=== PATIENT | female | born 1940 | race Caucasian/White ===

== ENCOUNTER 2024-10-15 12:11 | Outpatient (OUT) | payer MEDICARE, SELFPAY ==
--- NOTE | 2024-10-15 | CONS_ITS ---
CONSULTATION DATE: 10/15/2024 TO: Dr. Caldwell HISTORY: Patient presents today complaining of pain in her upper lumbar area on the left side, left flank area. She rates the pain as being 6-8/10 pain, deep aching in character, with an occasional sharp component. She reports this pain started back in March of 2024. It occurred spontaneously, increased gradually to its current state. She has undergone multiple kyphoplasties. She reports the pain was improved, but she is left with this residual area of pain, which she reports has altered her quality of life, level of function and at times her sleep pattern. She reports the pain increase with activities such as lifting maneuvers, pushing/pulling maneuvers and prolonged standing. She feels most comfortable in the semi-recumbent position or laying on her side. CURRENT MEDICATION: Includes ibuprofen 400 mg b.i.d. to t.i.d., Tylenol 1500 mg t.i.d. and Robaxin 750 q. 6 hours. EXAM: Notable for the patient having no clinical radiculopathy or myelopathy involving the lower extremities. She has no percussion tenderness to her spinous processes or over her sacrum. She did have significant myofascial spasm of the lumbar paravertebral muscles, mainly over the erector spinae, quadratus lumborum, especially on the left side. She also had severe pain with lumbar facet joint loading maneuvers on the left side at L1-2, L2-3. It is difficult to determine which level it was; however, she did point to an area which appeared to be approximately L1-2 level. We have marked this area off for placement of a skin marker, and to proceed with a lumbosacral x-ray to determine which level this corresponds to. IMPRESSION: Our impression is patient with chronic pain secondary to lumbosacral spondylosis and facet joint loading pain clinically on the left, mostly L1-2/L2-3. RECOMMENDATIONS: I have recommended we proceed with a diagnosis two level medial branch block, possibly at the L1-2, L2-3 level on the left side. Will make this determination after we review her lumbosacral spine films, with placement of a skin marker. As part of providing excellent, safe, comprehensive care, the following was completed at our patient's visit: 1. A medication reconciliation and review to ensure accurate knowledge of current/active medications, including asking our patients to inform us about any [id number] medications or herbal remedies/nutritional supplements/alternative remedies. 2. A review to specifically ensure our patients have had annual screening for: elevated body mass index (BMI, see intake chart for exact total), tobacco use, screening for depression, and screening for unhealthy alcohol use. When screening is concerning, patients are provided with education and the specific recommendation to discuss the concerning health issue and treatment options with their primary care provider. JOHN
== END 2024-10-15 12:12 | disposition home or self-care (01) ==
PROVIDERS: PCP Internal Medicine; Visit Provider Anesthesiology Pain Medicine
DX: M47.816 Spondylosis without myelopathy or radiculopathy, lumbar region (principal); M47.817 Spondylosis without myelopathy or radiculopathy, lumbosacral region; G89.29 Other chronic pain
CPT/HCPCS: 72100; G0463

== ENCOUNTER 2024-10-15 13:41 | Outpatient (OUT) | payer MEDICARE, SELFPAY ==
--- NOTE | 2024-10-15 13:50 | XR_ITS ---
[place] [id number] Patient Name: YANI ALTAMIRANO MRN: [id number] date: 1940 Sex: F Assigned Patient Location: [facility] Current Patient Location: Accession/Order Number: [id number] Exam Date: 10/15/2024 13:58 Report Date: 10/16/2024 12:12 At the request of: SANJAY MARES Procedure: XR lumbar spine 2-3V EXAMINATION: XR lumbar spine 2-3V HISTORY: Lumbar Spondylosis COMPARISON: No relevant comparison available. FINDINGS: BONES: Moderate left convex curvature of lumbar spine. Prior compression fractures and vertebroplasty of T11, T12, L1, L2, and L3. Moderate degenerative facet arthropathy L4-5, L5-S1; mild at other levels. DISC SPACES: Marked narrowing L4-5, L5-S1. Mild-moderate narrowing at remaining levels. PARASPINOUS: Skin surface marker projecting posterior to the L3-4 left facet joint. OTHER: Negative. XR/XR lumbar spine 2-3V IMPRESSION: 1. No comparison studies. 2. No appreciable acute abnormality. Multilevel compression fractures and prior vertebroplasty. 2. Multilevel degenerative changes. Electronically authenticated by: MINI VELA Date: 10/16/2024 12:12
== END 2024-10-15 13:42 | disposition home or self-care (01) ==
LOC: RAD 13:43
PROVIDERS: PCP Internal Medicine; Visit Provider Anesthesiology Pain Medicine
DX: M47.816 Spondylosis without myelopathy or radiculopathy, lumbar region (principal)
CPT/HCPCS: 72100

== ENCOUNTER 2024-11-05 06:58 | Day surgery (SDC) | payer MEDICARE, SELFPAY ==
[2024-11-05 07:11] VITALS: BP 173/79; PULSE 59; TEMP 36.2; O2SAT 98
[2024-11-05 07:50] VITALS: BP 189/84; BP 194/81; PULSE 56; PULSE 64; O2SAT 95; O2SAT 97
[2024-11-05] MEDS: BUPIVACAINE HCL 0.25% PF 25 MG/10 ML VIAL 3 ML INJ (07:53)
--- NOTE | 2024-11-05 08:53 | P.ON_ITS ---
Date of procedure: 11/05/24 Pre-op diagnosis: Lumbar spondylosis Post-op diagnosis: same as pre-op Procedure: Left Lumbar 3/4, 4/5 medial branch block Under fluoroscopic guidance Solution injected: 2millilitersMarcaine 0.25% Anesthesia :none Immediate complications none Time out process compliant After informed consent obtained from the patient placed in the Prone proposition . area was prepped and draped in a sterile fashion using Cloraprep .25 gauge spinal needle inserted over each of the above mentioned target areas . [place] were directed towards the target under fluoroscopic guidance . after encountering each of the targets , no indication of intravascular intraneuronal or intrathecal needle tip placement. Then 0 .5 to 1 Milliliter was injected at each level. [place] removed postoperatively. patient transferred to recovery in stable condition to be discharged home after meeting criteria Anesthesia: Local Surgeon: Roman Paredes Condition: stable
== END 2024-11-05 07:57 | disposition home or self-care (01) ==
LOC: SURGOUT 06:59
PROVIDERS: PCP Internal Medicine; Visit Provider Anesthesiology Pain Medicine
DX: M47.816 Spondylosis without myelopathy or radiculopathy, lumbar region (principal)
CPT/HCPCS: 64493; 64494; J0665

== ENCOUNTER 2024-11-19 09:10 | Outpatient (OUT) | payer MEDICARE, SELFPAY ==
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
== END 2024-11-19 09:11 | disposition home or self-care (01) ==
LOC: PM 09:11
PROVIDERS: PCP Internal Medicine; Visit Provider Anesthesiology Pain Medicine
DX: M47.816 Spondylosis without myelopathy or radiculopathy, lumbar region (principal); M54.50 Low back pain, unspecified
CPT/HCPCS: G0463

== ENCOUNTER 2024-12-17 06:52 | Day surgery (SDC) | payer MEDICARE, SELFPAY ==
--- OUTSIDE RECORDS SUMMARY | 2024-12-17 07:00 | XMS_ITS | CCD ---
Author Organization [facility] Care Team Providers Care Gi Asst Name Role Phone SAY DAWKINS Unavailable Unavailable SAY DAWKINS Unavailable Unavailable SAY DAWKINS Unavailable Unavailable SAY DAWKINS Unavailable Unavailable Kyle Amin Primary Care Provider Kyle Amin Unavailable Unavailable Unavailable KYLE AMIN Primary Care Physician [phone] GUERO MORSE Attending Unavailable GUERO MORSE Admitting Unavailable KYLE AMIN Referring Unavailable KYLE AMIN Primary Care Unavailable GUERO MORSE Attending Unavailable GUERO MORSE Referring Unavailable GUERO MORSE Admitting Unavailable KYLE AMIN Primary Care Unavailable Kyle Amin MD Primary Care Provider [phone] Lico Siu Unavailable Fiona Harkins MD Unavailable Kyle Amin MD Primary Care Provider Lico Siu Unavailable Fiona Harkins MD Unavailable HENRRY ELIZONDO Attending Unavailable HENRRY ELIZONDO Referring Unavailable Lico Siu Unavailable Aria English Attending Unavailable Aria English Admitting Unavailable Noa Perkins Attending Unavailable HENRRY ELIZONDO Referring Unavailable HENRRY ELIZONDO Attending Unavailable HENRRY ELIZONDO Admitting Unavailable GUERO MORSE Referring Unavailable GUERO MORSE Attending Unavailable GUERO MORSE Admitting Unavailable Aria English Referring Unavailable Aria English Attending Unavailable Aria English Admitting Unavailable Kyle Amin MD Primary Care Provider Lico Siu Unavailable Fiona Harkins MD Unavailable MD Kyle Amin Primary Care Provider [phone] VENTURA Wilkerson Attending Provider Lico Siu Unavailable Fiona Harkins MD Unavailable Lico Siu MD Unavailable [phone] MD Kyle Amin Primary Care Provider DO Kem Hammond Emergency Provider MD Yuni Lundberg Admit Provider MD Yuni Lundberg Attending Provider DO Eze Franks Other Provider DO Azar Wyatt Emergency Provider DO Aaron Rod Admit Provider DO Aaron Rod Attending Provider DO Megan Rubin Admit Provider DO Megan Rubin Attending Provider MD Louis Higgins Emergency Provider [phone] Kyle Amin MD Primary Care Provider [phone] Loraine Perry MD Unavailable [phone] Kyle Amin MD Unavailable Kyle Amin MD Primary Care Provider KYLE AMIN Primary Care Unavailable KYLE AMIN Primary Care Unavailable FRAN RACHEL Referring Unavailable KYLE AMIN Primary Care Unavailable MEGAN KIRBY Referring Unavailable MD Kyle Amin Primary Care Provider [phone] MD Kwesi Mendoza Jr Emergency Provider Megan Rubin Admitting Unavailable Semaskiene, Ana Attending Unavailable Hill, Kyle Primary Care Unavailable Siu, Barfield Referring Unavailable Miguel Romero Consulting Unavailab Louis Pedraza Admitting Unavailable Louis Higgins Attending Unavailable Hill, Kyle Primary Care Unavailable Hill, Kyle Primary Care Unavailable Kwesi Mendoza Jr Admitting Unavailable Kwesi Mendoza Jr Attending Unavailable Aaron Rod Admitting Unavailable Aaron Rod Attending Unavailable Hill, Kyle Primary Care Unavailable Eze Franks Consulting Unavailable LundbergYuni gutiérrez Admitting Unavailable LundbergYuni gutiérrez Attending Unavailable Hill, Kyle Primary Care Unavailable LISANDRA GUERIN Referring Unavailable LISANDRA GUERIN Referring Unavailable ROCHA, BETO Referring Unavailable ROCHA, BETO Referring Unavailable HILL, KYLE L Primary Care Unavailable Monty Benavides Admitting Unavailable Monty Benavides Attending Unavailable NICOLE, SEVERIANO Referring Unavailable BRENNAN, KYLE L Primary Care Unavailable MOBEST, SEVERIANO Referring Unavailable HILL, KLYE L Primary Care Unavailable ROCHA, BETO Referring Unavailable HILL, KYLE L Primary Care Unavailable CRISTÓBAL CORNELL Admitting Unavailable CRISTÓBAL CORNELL Attending Unavailable Brennan PORTILLO, Kyle Handy Unavailable Lisandra Guerin MD Unavailable Jayden Burks MD Unavailable [phone] Kyle Amin MD Primary Care Provider LISANDRA GUERIN Attending Unavailable BETO ROCHA Attending Unavailable MALVIN PINTO Attending Unavailable BRENNAN, KYLE L Referring Unavailable HILL, KYLE L Primary Care Unavailable HILL, KYLE L Referring Unavailable HILL, KYLE L Primary Care Unavailable ROCHABETO Attending Unavailable BRENNAN, KYLE L Referring Unavailable HILL, KYLE L Primary Care Unavailable Franck PORTILLO, Lico Greenberg Unavailable [phone] KYLE AMIN Attending Unavailable BRENNAN, KYLE Handy Referring Unavailable HILL, KYLE L Attending Unavailable YRN STEPHEN Attending Unavailable JOEL WILKERSON Attending Unavailable NADEGE GARNETT Attending Unavailable JOEL WILKERSON Attending Unavailable BRENNAN, KYLE L Referring Unavailable MALVIN PINTO Referring Unavailable HILL, KYLE L Referring Unavailable HYACINTH BAKRER Attending Unavailable JOEL WILKERSON Attending Unavailable NEMRPETER Attending Unavailable NEMRPETER Admitting Unavailable [facility] Primary Care Unavailable BAMJAYDEN LANIER Attending Unavailable [facility] Primary Care Unavailable [facility] Care Unavailable RUTHKJUSTYNARADHA R Referring Unavailable [facility] Primary Care Unavailable LAYULIANAK RADHA R Referring Unavailable BAMJAYDEN LANIER Attending Unavailable [facility] Primary Care Unavailable [facility] Primary Care Unavailable JOHN WEATHERS Attending Unavail able JAYDEN BURKS Attending Unavailable [facility] Primary Care Unavailable BAMYANNICK, JAYDEN Referring Unavailable AGUSTÍN ORNELAS Attending Unavailable [facility] Primary Care Unavailable BAMYANNICK, JAYDEN Attending Unavailable [facility] Primary Care Unavailable [facility] Primary Care Unavailable [facility] Care Unavailable JENNIFER QUIÑONES Attending Unavailable [facility] Care Unavailable BAMYANNICK, JAYDEN Referring Unavailable MEGAN KIRBY Attending Unavailable [facility] Care Unavailable RADHA ZARAGOZA R Attending Unavailable JUSTYNA ZARAGOZADITH R Referring Unavailable [facility] Care Unavailable [facility] Care Unavailable LAYULIANAK RADHA R Referring Unavailable LALAK RADHA R Attending Unavailable [facility] Primary Care Unavailable [facility] Primary Care Unavailable ARLETH CARIAS Attending Unavailable BARBY, NIMCO T Referring Unavailable [facility] Referring Unavailable FIONA HARKINS Attending Unavailable [facility] Care Unavailable [facility] Care Unavailable SELF Referring Unavailable RENATA SANDOVAL Attending Unavailable [facility] Care Unavailable JAYDEN BURKS Referring Unavailable NIMCO DIOR Attending Unavailable [facility] Primary Care Unavailable JUSTYNA ZARAGOZADITH R Referring Unavailable [facility] Primary Care Unavailable BAMJAYDEN LANIER Referring Unavailable BARBY NIMCO T Referring Unavailable [facility] Primary Care Unavailable NAJM, IMAD Attending Unavailable NAJM, IMAD Admitting Unavailable [facility] Primary Care Unavailable NAJM, IMAD Referring Unavailable [facility] Primary Care Unavailable BRENDATPARIS, NIMCO T Attending Unavailable FRAN RACHEL Referring Unavailable FRAN RACHEL Attending Unavailable [facility] Primary Care Unavailable FRAN RACHEL Referring Unavailable [facility] Primary Care Unavailable BRENDATPARIS, NIMCO T Referring Unavailable [facility] Primary Care Unavailable [facility] Primary Care Unavailable BARBY, NIMCO T Referring Unavailable KYLE AMIN Primary Care Unavailable BARBY, NIMCO T Referring Unavailable KYLE AMIN Primary Care Unavailable JAYDEN BURKS Referring Unavailable KYLE AMIN Primary Care Unavailable GOSTPARIS, NIMCO T Referring Unavailable KYLE AMIN Primary Care Unavailable GOSGRADY, NIMCO T Referring Unavailable KYLE AMIN Primary Care Unavailable BARBY, NIMCO T Referring Unavailable KYLE AMIN Primary Care Unavailable FRANCISCO ARCE Unavailable KYLE AMIN Primary Care Unavailable RADHA ZARAGOZA Referring Unavailable Unavailable Primary Care Provider Unavailabl e Allergies Allergy Classification Reported Allergen(s) Allergy Type Date of Onset Reaction(s) Facility HMG-CoA Reductase Inhibitors (statins) (1 source) Hmg-Coa Reductase Inhibitors (Statins); Translations: [NQOPNGT-GYC-BSG REDUCTASE INHIBITORS] Drug Allergy 9 [facility] Other [place] Repository rOPINIRole (5 sources) rOPINIRole; Translations: [ROPINIROLE] Drug Allergy 1 Other: See Comments [facility] Sulfonamides (antibiotic) (5 sources) Sulfonamides (Antibiotic); Translations: [SULFA (SULFONAMIDE ANTIBIOTICS)] Drug Allergy 5 [facility] Work Phone: (1 source) Sulfonamides (Antibiotic) Drug allergy (disorder) 5 RASH [facility] Repository (20 sources) atorvastatin; Translations: [Lipitor TABS] Drug Allergy Myalgia [facility] [employer] DO Work Phone: (15 sources) Hmg-Coa Reductase Inhibitors (Statins); Translations: [Statins] Allergy to drug (finding) Other (qualifier value) [facility] [employer] DO Work Phone: (12 sources) Sulfonamides (Antibiotic); Translations: [Sulfa Drugs] Allergy to drug (finding) [facility] Work [facility]: (3 sources) Sulfamethoxazole ; Translations: [sulfamethoxazol e] Drug Allergy [facility] (7 sources) black walnut pollen extract; Translations: [ROIRSPX-PZX-LGV REDUCTASE INHIBITORS] Drug Allergy 9 [facility] Repository (1 source) Sulfonamides (Antibiotic); Translations: [SULFA] Propensity to adverse reactions (disorder) 1 [facility] Repository (20 sources) ezetimibe; Translations: [EZETIMIBE] Drug Allergy 9 Myalgia [facility] (12 sources) HMG-CoA reductase inhibitor Drug Allergy 9 Other: See Comments, Other [facility] (20 sources) Sulfonamides (Antibiotic); Translations: [SULFA (SULFONAMIDE ANTIBIOTICS)] Propensity to adverse reactions 5 Rash [facility] Work Phone: (20 sources) HMG-CoA reductase inhibitor Drug Allergy 9 Other: See Comments [facility] (20 sources) gabapentin; Translations: [GABAPENTIN] Drug Allergy 1 Other: See Comments, Nausea Only, Other, GI intolerance [facility] Repository (20 sources) Pramipexole; Translations: [PRAMIPEXOLE] Drug Allergy 1 Other: See Comments, GI intolerance [facility] Repository (12 sources) rOPINIRole; Translations: [ROPINIROLE HCL] Drug Allergy 1 GI intolerance [facility] Repository (1 source) ezetimibe; Translations: [Zetia] Drug Allergy [facility] Repository (20 sources) rOPINIRole; Translations: [ROPINIROLE] Drug Allergy 1 Other: See Comments [facility] (11 sources) Fbsycqq-OPW-XkZ Reductase Inhibitor; Translations: [Fqvdzyc-IHB-IlR Reductase Inhibitor] Propensity to adverse reactions 2 Joint pain/immobility [facility] (11 sources) ezetimibe Drug Allergy 9 Other [facility] Work Phone: (1 source) Sulfonamides (Antibiotic) Drug allergy (disorder) 4 [facility] Repository Medications Current Medications Medication Drug Class(es) Dates Sig (Normalized) Sig (Original) Acetaminophen (20 sources) Start: 10-27-2020 acetaminophen (TYLENOL) tablet 650 mg take 1 tablet by remington th every eight hours as needed acetaminophen 650 mg CR tablet Take 650 mg by mouth every 8 hours as needed. Active acetaminophen (T YLENOL EXTRA STRENGTH) 500 mg tablet Take 2 tablets (1,000 mg total) by mouth. Active Comment on above: Take 650 mg by mouth every 8 hours as needed. acetaminophen 325 mg / HYDROcodone bitartrate 5 mg oral tablet (1 source) Opioid Agonist Start: 10-28-20 HYDROcodone-acetam inophen (NORCO) 5-325 MG per tablet 1 tablet amLODIPine 10 mg oral tablet (20 sources) Dihydropyridine Calcium Channel Bruce Start: 01-04-20 End: 04-08-20 take 1 tablet by mouth in the morning amLODIPine (Norvasc) 10 MG tablet Take 10 mg by mouth in the morning. 10/12/2022 Active Comment on above: Take 1 tablet by remington th once daily. Take 10 mg by mouth once daily. ascorbic acid 100 mg oral tablet (20 sources) Vitamin C take 1 tablet by mouth once daily Ascorbic Acid (VITAMIN C) 100 mg tablet Take 100 mg by mouth once daily. Active take 1 tablet by mouth in the mo rning ascorbic acid (Vitamin C) 500 MG tablet Take 500 mg by mouth in the morning and 500 mg before bedtime. Active Comment on above: Take 100 mg by mouth once daily. Aspirin (20 sources) Platelet Aggregation Inhibitor, Nonsteroidal Anti-inflammatory Drug Start: 11-16-2023 take 1 tablet by mouth in the morning ASPIRIN 81 PO Take 1 tablet by mouth in the morning. 11/16/2023 Active Start: 11-16-2023 take 1 tablet by remington th in the morning ASPIRIN 81 PO Take 1 tablet by mouth in the morning. 0 11/16/2023 Active Start: 11-16-2023 take 81 mg by mouth once daily Aspirin Active 81 MG PO Daily November 16, 2023 1:00am Start: 10-20-2023 End: 12-09-2023 take 325 mg by mouth once daily Aspirin Discontinued 3 25 MG PO Daily October 20, 2023 1:00am November 16, 2023 11:08am Start: 10-27-2020 End: 10-27-2020 aspirin chewable tablet 243 mg Start: 03-28-2019 aspirin 81 mg chewable tablet Aspirin Active 81 MG PO Daily March 27, 2019 11:00pm 03/28/2019 Active Start: 03-28-2019 take 81 mg by mouth once daily Aspirin Active 81 MG PO Daily March 28, 2019 12:00am Start: 03-28-2019 End: 10-20-2023 aspirin 81 mg chewable table t Aspirin Active 81 MG PO Daily March 27, 2019 11:00pm 0 03/28/2019 Active aspirin 81 mg Ta ke 1 tablet (81 mg total) by mouth. Active aspirin 325 mg c ap Take 81 mg by mouth once daily. 0 Active aspirin 325 mg c ap Take by mouth. 0 Active Comment on above: Take by mouth. Take 81 mg by mouth once daily. Aspirin Active 81 MG PO Daily March 27, 2019 11:00pm benzonatate 100 mg oral capsule (19 sources) Non-narcotic Antitussive benzona mcrae (TESSALON PERLE) 100 mg capsule Take 100 mg by mouth. Active biotin 1 mg oral capsule (20 sources) biotin 1 mg cap Take by mouth. Active take 1 capsule by mouth in the m orning biotin 5 MG capsule Take 1 capsule by mouth in the morning. Active Comment on above: Take by mouth. calcium carbonate 1500 mg oral tablet (11 sources) Start: 06-13-20 take 1 tablet by mouth once daily calcium carbonate 1500 (600 Ca) MG tablet Take 1 tablet by mouth 1 (one) time each day. 06/13/2022 Active calcium citrate 950 mg oral tablet (13 sources) calcium citrate (CALCITRATE) 200 mg (950 mg) tablet Take 3 tablets (600 mg total) by mouth. Active cefdinir 300 mg oral capsule (13 sources) Cephalosporin Antibacterial cefDINIR (OMNICEF) 300 mg capsule Take 1 capsule (300 mg total) by mouth. Active cephalexin 500 mg oral capsule (15 sources) Cephalosporin Antibacterial Start: 05-29-20 End: 06-05-20 take 1 capsule by mouth twice daily CEPHalexin (KEFLEX) 500 mg capsule TAKE 1 CAPSULE BY MOUTH TWICE DAILY FOR 7 (SEVEN) DAYS 05/30/2024 Active cholecalciferol 0.125 mg oral capsule (20 sources) Vitamin D Start: 11-15-19 cholecalciferol, vitamin D3, (VITAMIN D3) 5,000 units capsule Take 1 capsule (5,000 Units total) by mouth. 11/15/2023 Active Start: 11-15-2023 take 5000 [IU] by mo [facility] once daily Cholecalciferol (Vitamin D3) Active 5000 UNIT PO daily November 15, 2023 1:00am cholecalciferol, vitamin D3, (VITAMIN D3 ORAL) (20 sources) cholecalciferol, vitamin D3, (VITAMIN D3 ORAL) Take by mouth. Active cholecalciferol, vitamin D3, (VITAMIN D3 ORAL) Take by mouth. 0 Suspended cholecalciferol, vitamin D3, (VITAMIN D3 ORAL) Take by mouth. 0 Active Comment on above: Take by mouth. ciprofloxacin 250 mg oral tablet (13 sources) Quinolone Antimicrobial ciprofloxacin HCl (CIPRO) 250 mg tablet Active emollient clobetasol propionate 0.5 mg/ml topical cream (4 sources) Corticosteroid Start: 2024 clobetasol propionate (Temovate) 0.05 % emollient cream Indications: Rash and nonspecific skin eruption Apply topically 2 (two) times a day 30 g 11/06/2024 Active clonazePAM 0.5 mg oral tablet (13 sources) Benzodiazepine take 1 tablet by mouth once daily at bedtime clonazePAM (KlonoPIN) 0.5 mg tablet Take 1 tablet (0.5 mg total) by mouth once daily at bedtime. Active clopidogrel 75 mg oral tablet (20 sources) P2Y12 Platelet Inhibitor Start: 2018 End: 2023 clopidogreL (PLAVIX) 75 mg tablet Take 1 tablet (75 mg total) by mouth. 11/16/2023 Active Comment on above: Take 75 mg by mouth once daily. cyclobenzaprine hydrochloride 5 mg oral tablet (13 sources) Muscle Relaxant take 1 tablet by mouth three times daily as needed cyclobenzaprine (FLEXERIL) 5 mg tablet Take 1 tablet (5 mg total) by mouth 3 (three) times a day as needed. Active 1 ml denosumab 60 mg/ml prefilled syringe (11 sources) RANK Ligand Inhibitor Start: 2022 denosumab (Prolia) 60 MG/ML solution prefilled syringe Inject 60 mg under the skin every 6 (six) months. 11/29/2022 Active diclofenac sodium 0.01 mg/mg topical gel (20 sources) Nonsteroidal Anti-inflammatory Drug Start: 2023 apply 4 g topically four times daily diclofenac (VOLTAREN ARTHRITIS PAIN) 1 % topical gel Apply 4 g to affected area four times daily. 4 g 1 05/10/2024 Active Docosahexaenoate (13 sources) DOCOSAHEXAENOIC ACID ORAL Take by mouth. Active 1 ml evolocumab 140 mg/ml auto-injector (20 sources) PCSK9 Inhibitor Start: 2022 End: 2023 evolocumab (REPATHA SURECLICK) 140 mg/mL pen injector INJECT 140mg EVERY 2 (TWO) weeks 02/02/2024 Active Start: 08-11-2021 End: 10-14-2022 evolocumab (REPATHA SURECLIC K) 140 mg/mL pen injector Inject 140 mg subcutaneously as directed. Inject 1 pen subcu every 2 wks 6 Each 3 10/14/2022 Active Start: 09-17-2019 inject 140 mg by sub cutaneous injection every other week Evolocumab Active 140 MG SUBCUT EVERY 2 WEEKS September 17, 2019 1:00am evolocumab (Repa julianna) 140 MG/ML injection Inject 140 mg under the skin every 14 (fourteen) days. Active End: 12-09-2023 inject 140 mg by subcutaneous injection every other week evolocumab (REPATHA SYRINGE) 140 mg/mL Inject 140 mg subcutaneously every 2 weeks. 0 12/09/2023 Discontinued Evolocumab (REPA JULIANNA) 140 MG/ML SOSY Inject 140 mg into the skin every 14 days 0 Active Comment on above: Inject 1 Pen subcuta neously as directed. Inject 1 pen subcu every 2 wks Inject 140 mg subcut aneously as directed. Inject 1 pen subcu every 2 wks Inject 140 mg subcut aneously every 2 weeks. ezetimibe 10 mg oral tablet (20 sources) Dietary Cholesterol Absorption Inhibitor Start: 1 End: 3 ezetimibe (ZETIA) 10 mg tablet Take 1 tablet (10 mg total) by mouth. 09/12/2023 Active Comment on above: Take 10 mg by mouth once daily. Take 1 tablet by remington th once daily. ferrous gluconate 27 mg oral tablet (2 sources) Start: 1 take 27 mg by mouth once daily Fergon 27 mg, Oral, Daily, Refills(s) 0, Prophylaxis Start Date: 04/09/21 Status: Ordered 30 actuat fluticasone furoate 0.1 mg/actuat / umeclidinium 0.0625 mg/actuat / vilanterol 0.025 mg/actuat dry powder inhaler (20 sources) Anticholinergic, Corticosteroid, beta2-Adrenergic Agonist Start: fluticasone-umeclid in-vilanter (TRELEGY ELLIPTA) 100-62.5-25 mcg inhalation powder Inhale 1 Puff as instructed as needed. 01/17/2023 Active Start: 01-17-2023 take 1 puff(s) by inhalation once daily as needed Sbkgkaqgdbx-Xgbxcagxc-Pqqjbg (Trelegy Ellipta) 100-62.5-25 MCG/ACT aerosol powder Inhale 1 puff Daily as needed 01/17/2023 Active Comment on above: Inhale 1 Puff as ins tructed. Inhale 1 Puff as ins tructed as needed. furosemide 40 mg oral tablet (20 sources) Loop Diuretic Start: 02-29-2024 End: 05-29-2025 take 1 tablet by mouth twice daily furosemide (LASIX) 40 mg tablet Take 1 tablet by mouth two times a day. 90 tablet 3 05/29/2024 05/29/2025 Active Start: 02-29-2024 take 1 tablet by remington th once daily furosemide (Lasix) 40 MG tablet Indications: Essential hypertension (CMS/HCC) Take 1 tablet (40 mg) by mouth Daily 90 tablet 3 02/29/2024 Active Start: 02-12-2024 take 1 tablet by remington th once daily furosemide (LASIX) 20 mg tablet Take 1 tablet by mouth once daily. 30 tablet 5 02/12/2024 Active Start: 12-15-2022 End: 12-09-2023 take 1 tablet by mouth once daily furosemide (LASIX) 20 mg tablet Take 1 tablet by mouth once daily. 60 tablet 0 02/07/2023 12/09/2023 Discontinued Comment on above: Take 1 tablet by remington th once daily. Ibuprofen (20 sources) Nonsteroidal Anti-inflammatory Drug ibuprofen 200 MG tab let Take 400 mg by mouth in the morning and 400 mg at noon and 400 mg in the evening and 400 mg before bedtime. Active take 1 tablet by remington th every six hours as needed ibuprofen (MOTRIN) 800 mg tablet Take 1 tablet (800 mg total) by mouth every 6 (six) hours as needed. Active ibuprofen (MOTRI N ORAL) Take by mouth. Active ibuprofen (MOTRI N ORAL) Take by mouth. 0 Active Comment on above: Take 800 mg by mouth every 6 hours as needed. INV VITAMIN D3 5000 UNITS CAPSULE (IRB 19-1548) (20 sources) take 1 capsule by mouth once daily INV VITAMIN D3 5000 UNITS CAPSULE (IRB 19-1548) Take 5,000 Units by mouth once daily. For Investigational Drug Use Only. PI: Stevan Lozoya, PhD. Take one capsule by mouth daily for 3 months prior to surgery and 3 months after surgery. Active take 1 capsule by mouth once audelia ly INV VITAMIN D3 5000 UNITS CAPSULE (IRB 19- 1548) Take 5,000 Units by mouth once daily. For Investigational Drug Use Only. PI: Stevan Lozoya, PhD. Take one capsule by mouth daily for 3 months prior to surgery and 3 months after surgery. 0 Active Comment on above: Take 5,000 Units by mouth once daily. For Investigational Drug Use Only. PI: Stevan Lozoya, PhD. Take one capsule by mouth daily for 3 months prior to surgery and 3 months after surgery. 24 hr isosorbide mononitrate 30 mg extended release oral tablet (20 sources) Nitrate Vasodilator Start: 10-12-20 22 take 1 tablet by mouth every twenty-four hours isosorbide mononitrate (IMDUR) 30 mg 24 hr tablet Take 1 tablet (30 mg total) by mouth. 09/12/2023 Active Start: 10-29-2020 End: 11-28-2020 take 1 tablet by mouth once daily isosorbide mononitrate (IMDUR) 60 MG extended release tablet Take 1 tablet by mouth daily 30 tablet 0 10/29/2020 11/28/2020 Active Start: 09-19-2019 End: 10-22-2024 take 1 tablet by mouth once daily isosorbide mononitrate ER (IMDUR) 30 mg 24 hr tablet TAKE 1 TABLET BY MOUTH EVERY DAY 90 tablet 3 10/22/2024 Active Comment on above: Take 30 mg by mouth once daily. Take 1 tablet by remington th once daily. levETIRAcetam 750 mg oral tablet (20 sources) Start: End: take 1 tablet by mouth every twelve hours levETIRAcetam (KEPPRA) 750 mg tablet Take 1 tablet by mouth every 12 hours. Patient should start on December 12, 2023. 60 tablet 0 12/12/2023 01/11/2024 Active Start: 12-04-2023 End: 06-29-2024 levETIRAcetam (KEPPRA) 500 m g tablet Twice daily 12/04/2023 Active Comment on above: Take 1 tablet by remington th every 12 hours. Patient should start on December 12, 2023. levothyroxine sodium 0.05 mg oral tablet (20 sources) l-Thyroxine Start: 03-28-2019 End: 01-11-2024 SYNTHROID 50 mcg tablet 07/25/2023 Active Start: 06-02-2015 take 1 tablet by remington th once daily levothyroxine (SYNTHROID) 75 mcg tablet Take 1 tablet by mouth once daily. 90 tablet 4 06/02/2015 Suspended Comment on above: Take 1 tablet by remington th once daily. Take 1 tablet by remington th daily at 6:00 am. Patient should start on December 12, 2023. losartan potassium 25 mg oral tablet (20 sources) Angiotensin 2 Receptor Bruce Start: 12-29-2023 losartan (COZAAR) 25 mg tablet Take 1 tablet (25 mg total) by mouth. 12/29/2023 Active Start: 11-15-2023 take 50 mg by mouth twice cesar y Losartan Active 50 MG PO Twice daily November 15, 2023 1:00am Start: 08-02-2023 End: 01-29-2024 take 1 tablet by mouth once daily, then take 0.5 tablet by mouth at bedtime losartan (Cozaar) 50 MG tablet Indications: Essential hypertension (CMS/HCC) Take 1 tablet (50 mg) by mouth Daily AND 0.5 tablets (25 mg) at bedtime. 135 tablet 3 08/02/2023 01/29/2024 Active Start: 12-01-2021 take 1 tablet by remington th once daily in the evening Losartan Potassium 25 MG Oral Tablet TAKE one TABLET DAILY IN THE EVENING. Quantity: 90 Refills: 3 Ordered: 01-Dec-2021 Lico Siu MD Start : 01-Dec-2021 Active Start: 12-01-2021 take 1 tablet by [facility] once daily in the morning Losartan Potassium 50 MG Oral Tablet Take one tablet daily in the morning Quantity: 90 Refills: 3 Ordered: 01-Dec-2021 Lico Siu MD Start : 01-Dec-2021 Active Start: 10-27-2020 End: 10-29-2020 take 50 mg by mouth twice daily 50 mg, Oral, 2 TIMES D AILY, First dose on Mon10/27/20 at 2300 Start: 07-31-2013 End: 2024 take 2 tablets by mouth twice daily losartan (COZAAR) 25 mg tablet take 2 tablets by mouth twice daily 360 tablet 3 2024 Active Start: 07-31-2013 End: 11-15-2023 take 25 mg by mouth twice daily Losartan Discontinued 25 MG PO Twice daily March 28, 2019 12:00am November 15, 2023 1:22pm Comment on above: Take 25 mg by mouth twice daily. Take 2 tablets by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 TWICE DAILY as directed for 14 days - oxybutynin XL (DITROPAN XL) 5 mg 24 hr tablet 5 mg. - oxyCODONE IR (ROXICODONE) 5 mg immediate release tablet Take 5 mg by mouth every 4 hours as needed. - ibuprofen (MOTRIN ORAL) Take by mouth. - furosemide (LASIX) 40 mg tablet Take 1 tablet by mouth two times a day. - pregabalin (LYRICA) 25 mg capsule Take 1 capsule by mouth two times a day for 90 days. - diclofenac (VOLTAREN ARTHRITIS PAIN) 1 % topical gel Apply 4 g to affected area four times daily. - methocarbamol (ROBAXIN) 750 mg tablet Take 1 tablet by mouth four times a day as needed. - ranolazine SR (RANEXA) 1,000 mg tab ER 12 hr Take 1 tablet by mouth two times a day. - potassium chloride ER (KLOR-CON) 20 mEq tablet Take 1 tablet by mouth once daily. - evolocumab (REPATHA SURECLICK) 140 mg/mL pen injector Inject 140 mg subcutaneously as directed. Inject 1 pen subcu every 2 wks - metoprolol succinate ER (TOPROL XL) 50 mg 24 hr tablet Take 0.5 tablet by mouth once daily. - levothyroxine (SYNTHROID) 50 mcg tablet Take 1 tablet by mouth daily at 6:00 am. Patient should start on December 12, 2023. - INV VITAMIN D3 5000 UNITS CAPSULE (IRB 19-1548) Take 5,000 Units by mouth once daily. For Investigational Drug Use Only. PI: Stevan Lozoya, PhD. Take one capsule by mouth daily for 3 months prior to surgery and 3 months after surgery. - cyanocobalamin (VITAMIN B-12) 1,000 mcg tab Take 1,000 mcg by mouth once daily. - biotin 1 mg cap Take by mouth. - omega 1-tgq-ovn-fish oil 1,000 mg (250 mg-750 mg)/5 mL liqd Take by mouth. - Magnesium 200 mg tab Take 2 tablets by mouth once daily. - aspirin 81 mg chewable tablet Aspirin Active 81 MG PO Daily March 27, 2019 11:00pm - isosorbide mononitrate ER (IMDUR) 30 mg 24 hr tablet Take 1 tablet by mouth once daily. - ezetimibe (ZETIA) 10 mg tablet Take 1 tablet by mouth once daily. - nitroglycerin sublingual (NITROQUICK) 0.3 mg SL tablet Dissolve 1 tablet under the tongue every 5 minutes as needed for chest pain. - xuxjsuaznsp-ysejpzcsy-uso anter (TRELEGY ELLIPTA) 100-62.5-25 mcg inhalation powder Inhale 1 Puff as instructed as needed. - cholecalciferol, vitamin D3, (VITAMIN D3 ORAL) Take by mouth. - Ascorbic Acid (VITAMIN C) 100 mg tablet Take 100 mg b (more content not included)... Normal [facility] No Panel Informationon 07-17 ACINETOBACTER BAUMANII 0.000 [facility] ACINETOBACTER BAUMANII Not detected [facility] HARVEY ALBICANS, PARAPSILOSIS, TROPICALIS 0.000 [facility] HARVEY ALBICANS, PARAPSILOSIS, TROPICALIS Not detected [facility] HARVEY GLABRATA 0.000 [facility] HARVEY GLABRATA Not detected [facility] HARVEY KRUSEI 0.000 [facility] HARVEY KRUSEI Not detected [facility] CITROBACTER FREUNDII 0.000 [facility] CITROBACTER FREUNDII Not detected [facility] ENTEROBACTER AEROGENES, CLOACAE 0.000 [facility] ENTEROBACTER AEROGENES, CLOACAE Not detected [facility] ENTEROCOCCUS FAECALIS, FAECIUM 0.000 [facility] ENTEROCOCCUS FAECALIS, FAECIUM Not detected [facility] ESCHERICHIA COLI 0.000 [facility] ESCHERICHIA COLI Not detected [facility] KLEBSIELLA PNEUMONIAE, OXYTOCA 0.000 [facility] KLEBSIELLA PNEUMONIAE, OXYTOCA Not detected [facility] MORGANELLA MORGANII 0.000 [facility] MORGANELLA MORGANII Not detected [facility] PROTEUS MIRABILIS, VULGARIS 0.000 [facility] PROTEUS MIRABILIS, VULGARIS Not detected [facility] PSEUDOMONAS AERUGINOSA 0.000 [facility] PSEUDOMONAS AERUGINOSA Not detected [facility] SERRATIA MARCESCENS 0.000 [facility] SERRATIA MARCESCENS Not detected [facility] STAPHYLOCOCCUS AUREUS 0.000 [facility] STAPHYLOCOCCUS AUREUS Not detected [facility] STAPHYLOCOCCUS EPIDERMIDIS, HAEMOLYTICUS, LUGDUNENSIS, SAPROPHYTICUS (URINA 0.000 [facility] STAPHYLOCOCCUS EPIDERMIDIS, HAEMOLYTICUS, LUGDUNENSIS, SAPROPHYTICUS (URINA Not detected [facility] STREPTOCOCCUS AGALACTIAE (GROUP B STREP) 0.000 [facility] STREPTOCOCCUS AGALACTIAE (GROUP B STREP) Not detected [facility] STREPTOCOCCUS PYOGENES (GROUP A STREP) 0.000 [facility] STREPTOCOCCUS PYOGENES (GROUP A STREP) Not detected [facility] Laboratory - Chemistry and C hemistry - challengeon 07-16-2024 Bilirubin Ql (U) Negative [facility] Glucose [Mass/Vol] Negative [facility] Ketones Ql (U) Negative [facility] pH (U) 6.0 [pH] [facility] Specific gravity (U) [Rel density] 1.005 [facility] Urobilinogen (U) [Mass/Vol] Negative [facility] Laboratory - Hematology and Cell countson 07-16-2024 Hemoglobin Ql (U) Negative [facility] Laboratory - Urinalysison Nitrite Ql (U) Negative [facility] Protein Ql (U) Negative [facility] No Panel Informationon 07-16 Interpretation and review of laboratory results Normal [facility] LEUKOCYTES Negative [facility] XR SPINE LUMBAR 2 OR 3 VWSon 07-11-2024 XR SPINE LUMBAR 2 OR 3 VWS XR SPINE LUMBAR 2 OR 3 VWS CLINICAL INFORMATION: Chronic midline low back pain with bilateral sciatica TECHNIQUE: Lumbo-sacral spine radiographs performed. Three images acquired. COMPARISON: Kyphoplasty 06/25/2024 FINDINGS: Lumbar vertebral body heights and alignment are unchanged status post T12-L3 kyphoplasty. There is similar extension OC cement the posterior vertebral body of L3 with slight extension into the epidural space which is unchanged from prior exam. Moderate multilevel degenerative changes and lower lumbar facet arthropathy, the lumbosacral junction is maintained. Extensive vascular calcifications are present. IMPRESSION: * No acute compression or subluxation of the lumbar spine with stable kyphoplasty changes of T12-L3. * Moderate multilevel degenerative changes. Finalized by Cristóbal Cornell MD on 07/11/2024 3:48 PM Normal [facility] XR SPINE THORACIC 2 VWSon XR SPINE THORACIC 2 VWS XR SPINE THORACIC 2 VWS XR SPINE THORACIC 2 VWS: 07/09/2024 1:50 PM CLINICAL INDICATION: Pain COMPARISON: None. TECHNIQUE: AP lateral and swimmer's view of the thoracic spine were obtained. FINDINGS: There is interval sclerosis and mildly worsened superior endplate deformity involving the T11 vertebral body level. The remainder of the vertebral body heights and alignment are maintained. Mild multilevel degenerative changes of the thoracic spine. Redemonstration of kyphoplasty changes in the lumbar spine. IMPRESSION: Mild interval worsening of superior endplate compression fracture of T11. Finalized by Cristóbal Cornell MD on 07/11/2024 3:45 PM Normal [facility] CT angio chest PE protocolon 06-30-2024 CT angio chest PE protocol [facility] Main [place] [address] [place] [address] CT Scan Report Signed Patient: Yani Gerard MR#: [id number] : 1940 Acct:[id number] Age/Sex: 84 / F ADM Date: 06/29/24 Loc: ER Room: Type: [facility] ER Attending Dr: Copies to: Kwesi Mendoza Jr, MD Ordering Provider: Kwesi Mendoza Jr, MD Date of Service: 06/29/24 CT/CT angio chest PE protocol: CP post multiple level kyphoplasty, elev dimer CT ANGIOGRAM OF THE CHEST, PULMONARY EMBOLISM PROTOCOL: CLINICAL INFORMATION: Right-sided chest pain onset tonight. COMPARISON: Chest performed earlier today. TECHNIQUE: Following intravenous injection of contrast CT scans of the chest were obtained using pulmonary embolism protocol. Coronal and sagittal reconstructed images, as well as volume rendered CT pulmonary angiographic images were also submitted.The CT exam was performed using one or more of the following dose reduction techniques: Automated exposure control, adjustment of the MA and/or Kv according to patient size, or use of the iterative reconstruction technique. FINDINGS: Pulmonary Vasculature: Contrast bolus is adequate for evaluation of pulmonary embolism. Pulmonary trunk appears nondilated. No filling defects are identified to suggest pulmonary embolism. Mediastinum : Thoracic aorta is normal in caliber. No pericardial effusion. No lymphadenopathy. The esophagus is grossly unremarkable. Lungs: No focal consolidation, pneumothorax or pleural effusion. Bibasilar scarring. Upper abdomen: No acute findings Soft tissue/bones: Soft tissues surrounding the chest wall demonstrate no acute findings. Multilevel cement augmentation. Subacute to chronic endplate compression deformity involving the T10 vertebral body. CT/CT angio chest PE protocol IMPRESSION: NO EVIDENCE OF ACUTE PULMONARY EMBOLISM OR PROCESS. Impression dictated by: Sorin Jones Jr., D.O.06/30/2024 9:40 AM Dictation Location: RADIO-PC-15 Transcribed By: DANIELE 06/30/24939 Dictated By: Sorin Jones Jr, DO 06/30/24936 Signed By: 06/30/24939 Normal [facility] XR chest 1V portableon 06-30 XR chest 1V portable [facility] [place] [address] XRay Report Signed Patient: Yani Gerard MR#: [id number] : 1940 Acct:[id number] Age/Sex: 84 / F ADM Date: 06/29/24 Loc: ER Room: Type: [facility] ER Attending Dr: Copies to: Kwesi Mendoza Jr, MD Ordering Provider: Kwesi Mendoza Jr, MD Date of Service: 06/29/24 XR/XR chest 1V portable: Chest Pain SINGLE VIEW CHEST CLINICAL HISTORY: Right-sided chest pain onset tonight. COMPARISON: Chest 12/08/2023 FINDINGS: Cardiomegaly. No lung consolidation pneumothorax pleural effusion or free air. XR/XR chest 1V portable IMPRESSION: CARDIOMEGALY WITHOUT ACUTE PROCESS. Impression dictated by: Sorin Jones Jr., D.O.06/30/2024 9:37 AM Dictation Location: RADIO-PC-15 Transcribed By: DANIELE 06/30/24936 Dictated By: Sorin Jones Jr, DO 06/30/24935 Signed By: 06/30/24936 Normal [facility] Activated partial thrombopla stin time (aPTT) in platelet poor plasma by coagulation aOrdered By: Kwesi Mendoza on 06-29-2024 aPTT Coag (PPP) [Time] 31.9 s 25.1-36.5 [facility] Comment on above: A hematocrit value g reater than 55% may lead to inaccurate results in coagulation testing. Patients having hematocrit values >55% require a special collection tube for coagulation studies. Please contact the laboratory at [phone] for redraw instructions. Alanine aminotransferase [En zymatic activity/volume] in Serum or PlasmaOrdered By: Kwesi Mendoza on 06-29-2024 ALT [Catalytic activity/Vol] 9 U/L Normal 7-52 [facility] Comment on above: Performed By: #### C BC, CK, HS TROP, PT, PTT #### [facility] [address] Albumin [Mass/volume] in Ser um or Plasma by Bromocresol green (BCG) dye binding methoOrdered By: Kwesi Mendoza on 06-29-2024 Albumin BCG dye [Mass/Vol] 3.7 g/dL 3.5-5.7 [facility] Alkaline phosphatase [Enzyma tic activity/volume] in Serum or PlasmaOrdered By: Kwesi Mendoza on 06-29-2024 ALP [Catalytic activity/Vol] 129 U/L High 34-104 [facility] Comment on above: Performed By: #### C BC, CK, HS TROP, PT, PTT #### [facility] [address] Aspartate aminotransferase [ Enzymatic activity/volume] in Serum or PlasmaOrdered By: Kwesi Mendoza on 06-29-2024 AST [Catalytic activity/Vol] 10 U/L Low 13-39 [facility] Comment on above: Performed By: #### C BC, CK, HS TROP, PT, PTT #### [address] Automated basophil %Ordered By: Kwesi Mendoza on 06-29-2024 Basophils/100 WBC (Bld) 1.0 % Normal . [facility] Comment on above: Performed By: #### C BC, CK, HS TROP, PT, PTT #### [address] Automated basophil countOrde red By: Kwesi Mendoza on 06-29-2024 Basophils (Bld) [#/Vol] 0.1 10*3/uL Normal 0.0-0.2 [facility] Comment on above: Result Comment: PERF ORMED BY: [place] [address] PATHOLOGIST [employer] DEPOSITING MACHINE OPERATOR BELLE BONDS M.D. Performed By: #### C BC, CK, HS TROP, PT, PTT #### [address] Automated blood monocyte cou ntOrdered By: Kwesi Mendoza on 06-29-2024 Monocytes (Bld) [#/Vol] 1.0 10*3/uL High 0.0-0.8 [facility] Comment on above: Performed By: #### C BC, CK, HS TROP, PT, PTT #### [address] Automated eosinophil %Ordere d By: Kwesi Mendoza on 06-29-2024 Eosinophils/100 WBC (Bld) 1.1 % Normal . [facility] Comment on above: Performed By: #### C BC, CK, HS TROP, PT, PTT #### [address] Automated eosinophil countOr dered By: Kwesi Mendoza on 06-29-2024 Eosinophils (Bld) [#/Vol] 0.1 10*3/uL Normal 0.0-0.45 [facility] Comment on above: Performed By: #### C BC, CK, HS TROP, PT, PTT #### [address] Automated monocyte %Ordered By: Kwesi Mendoza on 06-29-2024 Monocytes/100 WBC (Bld) 11.1 % Normal . [facility] Comment on above: Performed By: #### C BC, CK, HS TROP, PT, PTT #### [address] Automated neutrophil %Ordere d By: Kwesi Mendoza on 06-29-2024 Neutrophils/100 WBC (Bld) 72.5 % Normal . [facility] Comment on above: Performed By: #### C BC, CK, HS TROP, PT, PTT #### [address] BNP ser/plasOrdered By: Jhon Mendoza on 06-29-2024 Natriuretic peptide B (Bld) [Mass/Vol] 106.0 pg/mL High 5-100 [facility] Comment on above: Result Comment: PERF ORMED BY: [place] [address] PATHOLOGIST [employer] DEPOSITING MACHINE OPERATOR BELLE BONDS M.D. Performed By: #### C BC, CK, HS TROP, PT, PTT #### [address] Bacteria [Presence] in Urine by AutomatedOrdered By: Kwesi Mendoza on 06-29-2024 Bacteria Auto Ql (U) 1+ [HPF] High None Seen [facility] Bilirubin Test strip Ql (U)O rdered By: Kwesi Mendoza on 06-29-2024 Bilirubin Ql (U) Negative Negative [facility] Bilirubin.total [Mass/volume ] in Serum or PlasmaOrdered By: Kwesi Mendoza on 06-29-2024 Bilirubin [Mass/Vol] 0.4 mg/dL Normal 0.3-1.0 [facility] Comment on above: Performed By: #### C BC, CK, HS TROP, PT, PTT #### [place] [address] [place] Calcium [Mass/volume] in Ser um or PlasmaOrdered By: Kwesi Mendoza on 06-29-2024 Calcium [Mass/Vol] 8.9 mg/dL Normal 8.6-10.3 [facility] Comment on above: Performed By: #### C BC, CK, HS TROP, PT, PTT #### [facility] [address] [place] [address] [place] Carbon dioxide, total [Moles /volume] in Serum or PlasmaOrdered By: Kwesi Mendoza on 06-29-2024 CO2 [Moles/Vol] 28.8 mmol/L Normal 21.0-31.0 [facility] Comment on above: Performed By: #### C BC, CK, HS TROP, PT, PTT #### [place] [address] [place] Chloride [Moles/volume] in S joanne or PlasmaOrdered By: Kwesi Mendoza on 06-29-2024 Chloride [Moles/Vol] 97 mmol/L Low 98-107 [facility] Comment on above: Performed By: #### C BC, CK, HS TROP, PT, PTT #### [address] Color of Urine by AutoOrdere d By: Kwesi Mendoza on 06-29-2024 Color (U) Light-yellow Normal Yellow [facility] Comment on above: Order Comment: Name Collection Type:: Clean-Voided Midstream Performed By: #### C BC, CK, HS TROP, PT, PTT #### [address] Complete Blood Count Auto Di ffon 06-29-2024 Mean Corpuscular HGB Conc 34.3 g/dL Normal 32.0-35.0 [facility] Comment on above: Performed By: #### C BC, CK, HS TROP, PT, PTT #### [address] Monocytes/100 WBC (Bld) 23.48 % High 0.00-20.00 [facility] Comment on above: Result Comment: For adults in ED, MDW > 20.0 may be associated with a higher risk of sepsis during the first 12 hrs of hospital admission Performed By: #### C BC, CK, HS TROP, PT, PTT #### [address] NRBC% 0.0 /100{WBC} Normal 0-0.5 [facility] Comment on above: Performed By: #### C BC, CK, HS TROP, PT, PTT #### [address] Comprehensive Metabolic Pane jeffrey 06-29-2024 Albumin [Mass/Vol] 3.7 g/dL Normal 3.5-5.7 [facility] Comment on above: Performed By: #### C BC, CK, HS TROP, PT, PTT #### [address] Creatinine Clr Calc Pharmacy 47.80 Normal [facility] Comment on above: Result Comment: PERF ORMED BY: [place] [address] PATHOLOGIST [employer]ANDY DEPOSITING MACHINE OPERATOR BELLE BONDS M.D. Performed By: #### C BC, CK, HS TROP, PT, PTT #### [facility] [address] [place] [address] [place] GFR/1.73 sq M.predicted MDRD (S/P/Bld) [Vol rate/Area] mL/min/{1.73_m2} Normal [facility] Comment on above: Performed By: #### C BC, CK, HS TROP, PT, PTT #### [facility] [address] Creatine kinase [Enzymatic a ctivity/volume] in Serum or PlasmaOrdered By: Kwesi Mendoza on 06-29-2024 CK [Catalytic activity/Vol] 22 U/L Low 30-223 [facility] Comment on above: Performed By: #### C BC, CK, HS TROP, PT, PTT #### [address] Creatinine [Mass/volume] in Serum or PlasmaOrdered By: Kwesi Mendoza on 06-29-2024 Creatinine [Mass/Vol] 0.74 mg/dL Normal 0.60-1.20 [facility] Comment on above: Performed By: #### C BC, CK, HS TROP, PT, PTT #### [place] [id number] [facility] D-Dimer High Sensitivityon 0 06-29-2024 D-Dimer High Sensitivity 631 ng/mL High 0-243 [facility] Comment on above: Result Comment: The reference range for D-dimer is <243 ng/mL D-dimer units. D-dimer results must be used in conjunction with a clinical pretest probability (PTP) assessment model for deep vein thrombosis (DVT) and pulmonary embolism (PE). Results <230 ng/mL d-dimer units can be used as a negative predictor in patients with low or moderate probability for DVT/PE. Results above the exclusion threshold of 230 ng/ml D-dimer units for DVT/PE may indicate the need for further diagnostic testing. D-Dimer can be increased in hospitalized patients due to co-morbid conditions. A hematocrit value greater than 55% may lead to inaccurate results in coagulation testing. Patients having hematocrit values >55% require a special collection tube for coagulation studies. Please contact the laboratory at [phone] for redraw instructions. PERFORMED BY: [place] [address] PATHOLOGIST CANDY DEPOSITING MACHINE OPERATOR BELLE BONDS M.D. Performed By: #### C BC, CK, HS TROP, PT, PTT #### [address] Dipstick and Microscopicon 0 06-29-2024 Bacteria,Urine 1+ High None Seen [facility] Comment on above: Order Comment: Name Collection Type:: Clean-Voided Midstream Performed By: #### C BC, CK, HS TROP, PT, PTT #### [address] Bilirubin,Urine Negative Normal Negative [facility] Comment on above: Order Comment: Name Collection Type:: Clean-Voided Midstream Performed By: #### C BC, CK, HS TROP, PT, PTT #### [address] Glucose Ql (U) Normal Normal Normal [facility] Comment on above: Order Comment: Name Collection Type:: Clean-Voided Midstream Performed By: #### C BC, CK, HS TROP, PT, PTT #### [address] Hyaline Casts,Urine None Normal 0-8 [facility] Comment on above: Order Comment: Name Collection Type:: Clean-Voided Midstream Result Comment: PERF ORMED BY: [place] [address] PATHOLOGIST CANDY DEPOSITING MACHINE OPERATOR BELLE BONDS M.D. Performed By: #### C BC, CK, HS TROP, PT, PTT #### [address] Nitrite,Urine Negative Normal Negative [facility] Comment on above: Order Comment: Name Collection Type:: Clean-Voided Midstream Performed By: #### C BC, CK, HS TROP, PT, PTT #### [address] Occult Blood,Urine Negative Normal Negative [facility] Comment on above: Order Comment: Name Collection Type:: Clean-Voided Midstream Result Comment: PERF ORMED BY: [place] [address] PATHOLOGIST CANDY DEPOSITING MACHINE OPERATOR BELLE BONDS M.D. Performed By: #### C BC, CK, HS TROP, PT, PTT #### [address] Protein,Urine Negative Normal Negative [facility] Comment on above: Order Comment: Name Collection Type:: Clean-Voided Midstream Performed By: #### C BC, CK, HS TROP, PT, PTT #### [address] RBC,Urine 1-2 Normal 0-4 [facility] Comment on above: Order Comment: Name Collection Type:: Clean-Voided Midstream Performed By: #### C BC, CK, HS TROP, PT, PTT #### [address] Renal Epithelial Cells,Urine 1-2 High 0-1 [facility] Comment on above: Order Comment: Name Collection Type:: Clean-Voided Midstream Performed By: #### C BC, CK, HS TROP, PT, PTT #### [place] [address] [place] Specificy Coleman,Urine 1.017 Normal 1.001-1.030 [facility] Comment on above: Order Comment: Name Collection Type:: Clean-Voided Midstream Performed By: #### C BC, CK, HS TROP, PT, PTT #### [address] Squamous Epithelial Cell,Urine 1-2 Normal 0-2 [facility] Comment on above: Order Comment: Name Collection Type:: Clean-Voided Midstream Performed By: #### C BC, CK, HS TROP, PT, PTT #### [place] [address] [place] Urobilinogen,Urine Normal Normal Normal [facility] Comment on above: Order Comment: Name Collection Type:: Clean-Voided Midstream Performed By: #### C BC, CK, HS TROP, PT, PTT #### [facility] [address] WBC CLUMP, Urine Occasional High None Seen [facility] Comment on above: Order Comment: Name Collection Type:: Clean-Voided Midstream Performed By: #### C BC, CK, HS TROP, PT, PTT #### [address] WBC,Urine 20-49 High 0-4 [facility] Comment on above: Order Comment: Name Collection Type:: Clean-Voided Midstream Performed By: #### C BC, CK, HS TROP, PT, PTT #### [address] ECG 12 lead ECGon 06-29-2024 ECG 12 lead ECG [facility] Main [place] [address] [place] [address] Electrocardiograph Report Signed Patient: Yani Gerard MR#: [id number] : 1940 Acct:[id number] Age/Sex: 84 / F ADM Date: 06/29/24 Loc: ER Room: Type: [facility] ER Attending Dr: Ordering Provider: Kwesi Mendoza Jr, MD Date of Service: 06/29/24 ECG/ECG 12 lead ECG: Chest Pain Copies to: Test Reason : Blood Pressure : 153/72 mmHG Vent. Rate : 81 BPM Atrial Rate : 81 BPM P-R Int : 150 ms QRS Dur : 80 ms QT Int : 364 ms P-R-T Axes : 42 32 64 degrees QTcB Int : 422 ms Normal sinus rhythm Nonspecific ST abnormality Abnormal ECG When compared with ECG of 08-Dec-2023 15:11, No significant change was found Confirmed by KWESI MENDOZA MD ([id number]) on 06/29/2024 8:51:31 PM Referred By: Electronically Signed By: KWESI MENDOZA MD Transcribed By: MUS Signed By Kwesi Mendoza Jr, MD 2050 Normal [facility] Epithelial cells.renal [#/ar ea] in Urine by Computer assisted methodOrdered By: Kwesi Mendoza on 06-29-2024 Epithelial cells.renal Computer assisted (U) [#/Area] 1-2 [HPF] High 0-1 [facility] Epithelial cells.squamous [# /area] in Urine sediment by Automated countOrdered By: Kwesi Mendoza on 06-29-2024 Epithelial cells.squamous Auto (Urine sed) [#/Area] 1-2 [HPF] 0-2 [facility] Erythrocyte distribution wid th [Ratio] by Automated countOrdered By: Kwesi Mendoza on 06-29-2024 Erythrocyte distribution width (RBC) [Ratio] 13.8 % Normal 11.9-15.3 [facility] Comment on above: Performed By: #### C BC, CK, HS TROP, PT, PTT #### [facility] [address] Erythrocytes [#/area] in Uri ne sediment by Automated countOrdered By: Kwesi Mendoza on 06-29-2024 RBC Auto (Urine sed) [#/Area] 1-2 [HPF] 0-4 [facility] Erythrocytes [#/volume] in B lood by Automated countOrdered By: Kwesi Mendoza on 06-29-2024 RBC (Bld) [#/Vol] 3.76 10*6/uL Normal 3.60-5.00 [facility] Comment on above: Performed By: #### C BC, CK, HS TROP, PT, PTT #### [facility] [address] [place] [address] Fibrin D-dimer [Presence] in Platelet poor plasma by Latex agglutinationOrdered By: Kwesi Mendoza on 06-29-2024 Fibrin D-dimer LA Ql (PPP) 631 ng/mL High 0-243 [facility] Comment on above: The reference range for D-dimer is <243 ng/mL D-dimer units.D-dimer results must be used in conjunction with a clinicalpretest probability (PTP) assessment model for deep veinthrombosis (DVT) and pulmonary embolism (PE). Results <230ng/mL d-dimer units can be used as a negative predictor inpatients with low or moderate probability for DVT/PE.Results above the exclusion threshold of 230 ng/ml D-dimerunits for DVT/PE may indicate the need for furtherdiagnostic testing.D-Dimer can be increased in hospitalized patients due toco-morbid conditions.A hematocrit value greater than 55% may lead to inaccurate results in coagulation testing. Patients having hematocrit values >55% require a special collection tube for coagulation studies. Please contact the laboratory at [phone] for redraw instructions. Glucose [Mass/volume] in Ser um or PlasmaOrdered By: Kwesi Mendoza on 06-29-2024 Glucose [Mass/Vol] 142 mg/dL High 70-100 [facility] Comment on above: ADA recommended refe rence rangeRandom Glucose Reference Range is dependent on time and content of last meal. Glucose of more than 200 mg/dL in a nonstressed, ambulatory subject supports the diagnosis of Diabetes Mellitus. Result Comment: [place] om Glucose Reference Range is dependent on time and content of last meal. Glucose of more than 200 mg/dL in a nonstressed, ambulatory subject supports the diagnosis of Diabetes Mellitus. ADA recommended reference range Performed By: #### C BC, CK, HS TROP, PT, PTT #### [facility] [address] Glucose [Mass/volume] in Uri ne by Test stripOrdered By: Kwesi Mendoza on 06-29-2024 Glucose Test strip (U) [Mass/Vol] Normal mg/dL Normal [facility] Hematocrit [Volume Fraction] of Blood by Automated countOrdered By: Kwesi Mendoza on 06-29-2024 Hematocrit (Bld) [Volume fraction] 37.3 % Normal 34.0-46.4 [facility] Comment on above: Performed By: #### C BC, CK, HS TROP, PT, PTT #### [facility] [address] [place] [address] [place] Hemoglobin Test strip Ql (U) Ordered By: Kwesi Mendoza on 06-29-2024 Hemoglobin Ql (U) Negative Negative [facility] Hemoglobin [Mass/volume] in BloodOrdered By: Kwesi Mendoza on 06-29-2024 Hemoglobin (Bld) [Mass/Vol] 12.8 g/dL Normal 11.8-15.4 [facility] Comment on above: Performed By: #### C BC, CK, HS TROP, PT, PTT #### [facility] [address] [place] [address] [place] Hyaline casts [#/area] in Ur ine sediment by Automated countOrdered By: Kwesi Mendoza on 06-29-2024 Hyaline casts Auto (Urine sed) [#/Area] None [LPF] 0-8 [facility] INR in Platelet poor plasma by Coagulation assayOrdered By: Kwesi Mendoza on 06-29-2024 INR Coag (PPP) [Relative time] 1.0 {INR} Normal [facility] Comment on above: INR Therapeutic Rang e A) Pre- and Peroperative OAT started two weeks before surgery. NOT HIP SURGERY: 1.5 - 2.5 HIP SURGERY: 2 - 3B) Primary and secondary prevention of venous THROMBOSIS: 2 - 3C) Active venous thrombosis, pulmonary embolismand prevention of recurrent venous thrombosis: 2 - 3D) Prevention of arterial thromboembolismincluding patients with mechanical heart valves: 3 - 4.5 Result Comment: INR Therapeutic Range A) Pre- and Peroperative OAT started two weeks before surgery. NOT HIP SURGERY: 1.5 - 2.5 HIP SURGERY: 2 - 3 B) Primary and secondary prevention of venous THROMBOSIS: 2 - 3 C) Active venous thrombosis, pulmonary embolism and prevention of recurrent venous thrombosis: 2 - 3 D) Prevention of arterial thromboembolism including patients with mechanical heart valves: 3 - 4.5 Performed By: #### C BC, CK, HS TROP, PT, PTT #### [facility] [address] [place] [id number] [place] Ketones [Presence] in Urine by Test stripOrdered By: Kwesi Mendoza on 06-29-2024 Ketones Ql (U) Negative Normal Negative [facility] Comment on above: Order Comment: Name Collection Type:: Clean-Voided Midstream Performed By: #### C BC, CK, HS TROP, PT, PTT #### [facility] [address] [place] [id number] [place] Leukocyte clumps [Presence] in Urine by AutomatedOrdered By: Kwesi Mendoza on 06-29-2024 Leukocyte clumps Auto Ql (U) Occasional [LPF] High None Seen [facility] Leukocyte esterase [Presence ] in Urine by Test stripOrdered By: Kwesi Mendoza on 06-29-2024 Leukocyte esterase Test strip Ql (U) 4+ High Negative [facility] Comment on above: Order Comment: Name Collection Type:: Clean-Voided Midstream Performed By: #### C BC, CK, HS TROP, PT, PTT #### [facility] [address] [place] [id number] [place] Leukocytes [#/area] in Urine sediment by Automated countOrdered By: Kwesi Mendoza on 06-29-2024 WBC Auto (Urine sed) [#/Area] 20-49 [HPF] High 0-4 [facility] Leukocytes [#/volume] correc dorian for nucleated erythrocytes in Blood by Automated counOrdered By: Kwesi Mendoza on 06-29-2024 WBC corrected for nucl RBC Auto (Bld) [#/Vol] 8.6 10*3/uL 3.8-11.6 [facility] Leukocytes [#/volume] in Blo od by Automated countOrdered By: Kwesi Mendoza on 06-29-2024 WBC (Bld) [#/Vol] 8.6 10*3/uL Normal 3.8-11.6 [facility] Comment on above: Performed By: #### C BC, CK, HS TROP, PT, PTT #### [facility] [address] [place] [address] [place] Lymphocytes [#/volume] in Bl ood by Automated countOrdered By: Kwesi Mendoza on 06-29-2024 Lymphocytes (Bld) [#/Vol] 1.2 10*3/uL Normal 1.00-4.8 [facility] Comment on above: Performed By: #### C BC, CK, HS TROP, PT, PTT #### [facility] [address] [place] [id number] [place] Lymphocytes/100 leukocytes i n Blood by Automated countOrdered By: Kwesi Mendoza on 06-29-2024 Lymphocytes/100 WBC (Bld) 14.3 % Normal . [facility] Comment on above: Performed By: #### C BC, CK, HS TROP, PT, PTT #### [facility] [address] [place], [place] [id number] [place] MCH [Entitic mass] by Automa dorian countOrdered By: Kwesi Mendoza on 06-29-2024 MCH (RBC) [Entitic mass] 34.0 pg Normal 24.7-34.3 [facility] Comment on above: Performed By: #### C BC, CK, HS TROP, PT, PTT #### [facility] [address] [place] [address] MCHC Auto (RBC) [Mass/Vol]Or dered By: Kwesi Mendoza on 06-29-2024 MCHC (RBC) [Mass/Vol] 34.3 g/dL 32.0-35.0 [facility] MCV [Entitic volume] by Auto mated countOrdered By: Kwesi Mendoza on 06-29-2024 MCV (RBC) [Entitic vol] 99.1 fL Normal 80-100 [facility] Comment on above: Performed By: #### C BC, CK, HS TROP, PT, PTT #### [address] Monocyte distribution width [Entitic volume] in Blood by AutomatedOrdered By: Kwesi Mendoza on 06-29-2024 Monocyte distribution width Auto (Bld) [Entitic vol] 23.48 % High 0.00-20.00 [facility] Comment on above: For adults in ED, MD W > 20.0 may be associated with a higher risk of sepsis during the first 12 hrs of hospital admission Neutrophils [#/volume] in Bl ood by Automated countOrdered By: Kwesi Mendoza on 06-29-2024 Neutrophils (Bld) [#/Vol] 6.3 10*3/uL Normal 1.8-7.7 [facility] Comment on above: Performed By: #### C BC, CK, HS TROP, PT, PTT #### [address] Nitrite Test strip Ql (U)Ord ered By: Kwesi Mendoza on 06-29-2024 Nitrite Ql (U) Negative Negative [facility] No Panel InformationOrdered By: Kwesi Mendoza on 06-29-2024 Estimated GFR (CKD-EPI) > 60.0 mL/Min [facility] Creatinine Clearance (Chem 47.80 [facility] Nucleated erythrocytes [Pres ence] in Blood by Automated countOrdered By: Kwesi Mendoza on 06-29-2024 Nucleated RBC Auto Ql (Bld) 0.0 /100{WBC} 0-0.5 [facility] Partial Thromboplastin Timeo n 06-29-2024 aPTT Coag (Bld) [Time] 31.9 s Normal 25.1-36.5 [facility] Comment on above: Result Comment: A he matocrit value greater than 55% may lead to inaccurate results in coagulation testing. Patients having hematocrit values >55% require a special collection tube for coagulation studies. Please contact the laboratory at [phone] for redraw instructions. Performed By: #### C BC, CK, HS TROP, PT, PTT #### [facility] [address] [place] [address] [place] Platelet mean volume [Entiti c volume] in Blood by Automated countOrdered By: Kwesi Mendoza on 06-29-2024 Platelet mean volume (Bld) [Entitic vol] 9.1 fL Normal 6.3-10.7 [facility] Comment on above: Performed By: #### C BC, CK, HS TROP, PT, PTT #### [facility] [address] [place] [address] [place] Platelets [#/volume] in Bloo d by Automated countOrdered By: Kwesi Mendoza on 06-29-2024 Platelets (Bld) [#/Vol] 234 10*3/uL Normal 150-450 [facility] Comment on above: Performed By: #### C BC, CK, HS TROP, PT, PTT #### [facility] [address] [place] [id number] [place] Potassium [Moles/volume] in Serum or PlasmaOrdered By: Kwesi Mendoza on 06-29-2024 Potassium [Moles/Vol] 3.4 mmol/L Low 3.5-5.1 [facility] Comment on above: Performed By: #### C BC, CK, HS TROP, PT, PTT #### [place] [id number] [facility] Protein Test strip (U) [Mass /Vol]Ordered By: Kwesi Mendoza on 06-29-2024 Protein (U) [Mass/Vol] Negative Negative [facility] Protein [Mass/volume] in Ser um or PlasmaOrdered By: Kwesi Mendoza on 06-29-2024 Protein [Mass/Vol] 6.4 g/dL Normal 6.4-8.9 [facility] Comment on above: Performed By: #### C BC, CK, HS TROP, PT, PTT #### [address] Prothrombin time (PT)Ordered By: Kwesi Mendoza on 06-29-2024 PT Coag (PPP) [Time] 11.8 s Normal 9.0-12.9 [facility] Comment on above: A hematocrit value g reater than 55% may lead to inaccurate results in coagulation testing. Patients having hematocrit values >55% require a special collection tube for coagulation studies. Please contact the laboratory at [phone] for redraw instructions. Result Comment: A he matocrit value greater than 55% may lead to inaccurate results in coagulation testing. Patients having hematocrit values >55% require a special collection tube for coagulation studies. Please contact the laboratory at [phone] for redraw instructions. Performed By: #### C BC, CK, HS TROP, PT, PTT #### [address] Serum globulin measurement b y calculation (mass/volume)Ordered By: Kwesi Mendoza on 06-29-2024 Globulin (S) [Mass/Vol] 2.7 g/dL [facility] Comment on above: Performed By: #### C BC, CK, HS TROP, PT, PTT #### [address] Serum or plasma albumin/glob ulin mass ratioOrdered By: Kwesi Mendoza on 06-29-2024 Albumin/Globulin [Mass ratio] 1.4 {ratio} [facility] Comment on above: Performed By: #### C BC, CK, HS TROP, PT, PTT #### [address] Serum or plasma anion gap de terminationOrdered By: Kwesi Mendoza on 06-29-2024 Anion gap [Moles/Vol] 12.6 mmol/L Normal 6.0-15.0 [facility] Comment on above: Performed By: #### C BC, CK, HS TROP, PT, PTT #### [address] Sodium [Moles/volume] in Ser um or PlasmaOrdered By: Kwesi Mendoza on 06-29-2024 Sodium [Moles/Vol] 135 mmol/L Low 136-145 [facility] Comment on above: Performed By: #### C BC, CK, HS TROP, PT, PTT #### [address] Specific gravity Test strip (U) [Rel density]Ordered By: Kwesi Mendoza on 06-29-2024 Specific gravity (U) [Rel density] 1.017 1.001-1.030 [facility] Troponin I High Sensitivityo n 06-29-2024 Troponin I High Sensitivity 11.7 pg/mL Normal 0.0-15.0 [facility] Comment on above: Result Comment: PERF ORMED BY: [place] [address] PATHOLOGIST [employer]AND[employer] DEPOSITING MACHINE OPERATOR BELLE BONDS M.D. Performed By: #### C BC, CK, HS TROP, PT, PTT #### [address] Troponin I High Sensitivity 11.7 pg/mL Normal 0.0-15.0 [facility] Comment on above: Result Comment: PERF ORMED BY: [place] [address] PATHOLOGIST CANDY DEPOSITING MACHINE OPERATOR BELLE BONDS M.D. Performed By: #### C BC, CK, HS TROP, PT, PTT #### [address] Troponin I.cardiac [Mass/vol ume] in Serum or Plasma by Detection limit <= 0.01 ng/Ordered By: Kwesi Mendoza on 06-29-2024 Troponin I.cardiac DL <= 0.01 ng/mL [Mass/Vol] 11.7 pg/mL 0.0-15.0 [facility] Urea nitrogen [Mass/volume] in Serum or PlasmaOrdered By: Kwesi Mendoza on 06-29-2024 Urea nitrogen [Mass/Vol] 22 mg/dL Normal 7-25 [facility] Comment on above: Performed By: #### C TOMAS, CK, HS TROP, PT, PTT #### [facility] [address] [place] [address] Urine Cultureon 06-29-2024 Bacteria identified Cx Nom (U) ORGANISM: Pseudomonas aeruginosa (O:PSEAER) [place] Count 15,000 Aerobic SABRINA Charge (NMIC56) SUSCEPTIBILITY ORGANISM: O:PSEAER ANTIBIOTIC INTERPRETATION SABRINA Amikacin S <16 Aztreonam IB <4 Cefepime S <2 Ceftazidime IB 4 Ceftazidime/Avibactam S <4 Ceftolozane/Tazobactam S <2 Ciprofloxacin S <0.25 Gentamicin S <2 Levofloxacin S <0.5 Meropenem S <1 Piperacillin/Tazobactam IB <8 Tobramycin S <2 S = SUSCEPTIBLE I = INTERMEDIATE R = RESISTANT BLANK = DATA NOT AVAILABLE, OR DRUG NOT ADVISABLE OR TESTED R* = RESISTANCE DUE TO EXTENDED SPECTRUM BETA-LACTAMASES ESBL = EXTENDED SPECTRUM BETA-LACTAMASE TFG = THYMIDINE-DEPENDENT STRAIN MARISA = BETA-LACTAMASE POSITIVE IB = INDUCIBLE BETA-LACTAMASE. APPEARS IN PLACE OF 'S' WITH SPECIES KNOWN TO POSSESS INDUCIBLE BETA-LACTAMASES. POTENTIALLY THEY MAY BECOME RESISTANT TO ALL B-LACTAM DRUGS. PERFORMED BY: [place] [address] PATHOLOGIST CANDY DEPOSITING MACHINE OPERATOR BELLE BONDS M.D. Normal [facility] Comment on above: Performed By: #### C TOMAS, CK, HS TROP, PT, PTT #### [facility] [address] [place] [address] Urine appearanceOrdered By: Kwesi Mendoza on 06-29-2024 Appearance (U) Clear Normal Clear [facility] Comment on above: Order Comment: Name Collection Type:: Clean-Voided Midstream Performed By: #### C TOMAS, CK, HS TROP, PT, PTT #### [facility] [address] [place] [id number] [facility] Urobilinogen Test strip (U) [Mass/Vol]Ordered By: Kwesi Mendoza on 06-29-2024 Urobilinogen (U) [Mass/Vol] Normal mg/dL Normal [facility] pH of Urine by Test stripOrd ered By: Kwesi Mendoza on 06-29-2024 pH (U) 6.5 [pH] Normal 5.0-9.0 [facility] Comment on above: Order Comment: Name Collection Type:: Clean-Voided Midstream Performed By: #### C BC, CK, HS TROP, PT, PTT #### [facility] [address] IR KYPHOPLASTY LUMBAR W GUID on 06-25-2024 IR KYPHOPLASTY LUMBAR W GUID IR KYPHOPLASTY LUMBAR W GUID EXAM: KYPHOPLASTY CLINICAL INDICATION: 83-year-old female with history of multilevel subacute compression fractures involving T12-L3, she is in excruciating daily pain which is significantly impacting her mobility and level of activity, her symptoms are lifestyle limiting and required her to take an extensive regimen of pain medication for mild relief. Compression fractures were confirmed on prior MRI which demonstrate marrow edema and height loss at these 4 levels. She presents today for vertebral augmentation. COMPARISON: MRI 06/14/2024 TECHNIQUE: Procedure performed by Interventional Radiologist Cristóbal Cornell M.D. Fluoroscopy time: 18.4 minutes Reference Air Kerma: 599 mGy Fluoroscopy images saved: 7 Medication: 1 g of Ancef for antibiotic prophylaxis CONSENT: The reason of the procedure was discussed with the patient. The procedure, expectations, risks, benefits, options and alternatives were discussed. All of the patient?s questions were answered. The patient understands that the results cannot be guaranteed. The procedure is indicated and the risks are acceptable. Consent was obtained. SEDATION: The patient?s cardiopulmonary status was evaluated and the patient is suitable for moderate sedation. During the course of the procedure, the patient was sedated with Fentanyl 350 mcg intravenously and Versed 3 mg intravenously, while being monitored with ECG, blood pressure monitoring, and pulse oximeter by appropriately trained personnel, for a total sedation time of 100 minutes. Following the procedure, the patient was recovered according to the moderate sedation policy. PROCEDURE: Fluoroscopic guided kyphoplasty of T12-L3. Details of procedure: The patient was placed in the prone position on the fluoroscopy table. The back was prepped and draped in usual sterile fashion. Using fluoroscopy, the vertebral bodies were counted and the T12-L3 vertebral bodies were marked in both AP and lateral projections. The bilateral pedicles were marked. Appropriate skin entry sites were marked just lateral to the pedicles. A 10 mL 50-50 mixture of 1% lidocaine and 0.25% bupivacaine was used as a local anesthetic at the skin and subcutaneous and soft tissues. A 22-gauge spinal needle was then used to anesthetize the periosteum. Position was confirmed in AP and lateral projections. Then, an 10-gauge fernie osteointroducer trocar was advanced through the left T12 pedicle. Special care was made not to violate the medial border of the pedicle to avoid any injury to the spinal canal. The trocar was then advanced to the posterior wall of the vertebral body this process was repeated for the right L1 pedicle and left L2 and L3 pedicles. The patient's right L3 pedicle was small in size and so the left pedicle was utilized. Then, utilizing the Omni curve introducer needle and intermittent fluoroscopic guidance, a peak sheath was advanced across the mid body of the vertebral body to the contralateral pedicle at each level. Then, an inflatable balloon was inserted and inflated under fluoroscopy at each level. The T12 and L1 balloons were deflated and removed with reinsertion of the peak sheath. Cement delivery was then performed in the T12 and L1 levels until adequate filling of the vertebral body was seen on fluoroscopy. Once adequate filling of the vertebral body was obtained the cement delivery was removed and a needle stylet was inserted through the introducer cannula. Attention was turned to the L2 and L3 levels. L2 and L3 balloons were deflated and the peak sheath was reinserted. Cement delivery was then performed at the L2 and L3 levels under intermittent fluoroscopic. Once adequate filling of the vertebral bodies was obtained the cement delivery was removed and a needle stylette was inserted through the introducer cannula. During filling of the L3 vertebral body cement began to flow posteriorly to the posterior margin of the vertebral body and once this was seen cement delivery was immediately halted. After adequate time, the introducer cannulas at all levels were removed. After all needles were removed, sterile dressings were applied. The patient tolerated the procedure well and there were no immediate complications. Final fluoroscopic images were obtained. FINDINGS: Redemonstration of compression fractures at T12-L3 Successful fluoroscopic guided unipedicular kyphoplasty of the T12-L3 vertebral body levels with satisfactory bone cement filling of the vertebral bodies. Cement delivery into the L3 vertebral body was limited as cement traveled posteriorly to the posterior body of L3 and possibly within the epidural space. Positioning of cement in the posterior body precluded additional cement delivery. IMPRESSION: Successful fluoroscopically guided T12-L3 kyphoplasty Finalized by Cristóbal Cornell MD on 06/25/2024 3:09 PM Normal [facility] PLATELET COUNT AND MPVon Platelet mean volume (Bld) [Entitic vol] 8.6 fL Normal 7-12 [facility] Comment on above: Performed By: #### P LTCT, PINR #### [facility] ([id number]) [address], [address] [place] [address] Platelets (Bld) [#/Vol] 264 10*3/uL Normal 150-450 [facility] Comment on above: Performed By: #### P LTCT, PINR #### [facility] ([id number]) [address] [address] [place] [address] PROTIME AND INRon 06-25-2024 INR Coag (PPP) [Relative time] 1.0 {INR} Normal 0.8-1.1 [facility] Comment on above: Performed By: #### P LTCT, PINR #### [facility] ([id number]) [address], [address] [place] [address] PT Coag (PPP) [Time] 12.0 s Normal 9.8-13.2 [facility] Comment on above: Performed By: #### P LTCT, PINR #### [facility] ([id number]) [address] [place] [address] CNOVon 06-18-2024 [facility] Office Visit (NSFRVW ) ----- YANI GERARD ([id number]) 1940 F Date Time Provider Department 06/18/24 11:00 AM JOHN WEATHERS NSFRVW During your visit today, we recorded the following information about you: Temperature Pulse Blood pressure Weight 96.4 degrees 59/minute 172/67 70.4 kg Height 1.549 m John Weathers MD 06/18/2024 1:07 PM Signed SPINE SURGERY NEW PATIENT This is an in-person visit. PCP: Kyle Amin MD REFERRING PROVIDER: MD [place] SUBJECTIVE CHIEF COMPLAINT: Lower back pain Right leg pain Walking difficulty HISTORY OF PRESENT ILLNESS: Yani Gerard is a 83 year old female presenting with family Yani Gerard is a pleasant 83-year-old female is here in spine surgical with a history of lower back pain. Pain started few months ago without any history of injury or fall. Pain is mostly localized to lower back. Pain is constant, aggravated by standing, walking for short distance. Pain is not significantly improved with the sitting or lying down. She is sleeping in a recliner chair. Unable to sleep on a regular bed. Occasionally pain is radiating to right lower extremity. Occasionally noticing urgency incontinence of urine. No left leg pain. Denies leg numbness. Denies weakness. Denies bowel incontinence. Evaluated by multiple medical team recently: Kofi CAMPBELL 2023- MRI lumbar spine and trial of lyrica Dr. Jayden Burks in Neurology for poor balance-refer her for vestibular physical therapy. history of relatively stereotyped episodic alteration of behavior and movement. Prolonged video EEG monitoring has failed to demonstrate a definite cerebral electrographic correlate to this phenomenon -Dr Henriquez- Consult placed to Functional Movement Disorders multidisciplinary clinic continue PT and follow with psychology when able Dr Agustín Ornelas 2024 for Intracranial atherosclerotic disease and transient neurologic symptoms ; -September 2023 she experienced sudden onset left leg shaking, slurred speech and difficulty expressing herself; 2023, her symptoms happened again, although in a milder form, and lasted only about 6-7 hours. Continue dual antiplatelet therapy for 3 months, then consider Plavix monotherapy long-term afterwards. Aggressive medical management of underlying vascular risk factors. -Right JULIANNA revision by Dr Morse in [facility] 12/2021, 12/2020 -Left Heart Catheterization by Dr Allen 05/2023 Tried Medrol Dosepak without much pain relief. On record 25 mg 3 times a day, oxycodone IR every 4 hours, diclofenac gel, Robaxin 4 times a day. All medications helps only minimal pain. Received right trochanteric bursa injection without any pain relief. Known history of osteoporosis, on Prolia for at least 2 years. Last BMD done in 2020. BMD done on 2022 however she not completed it. Underwent left L4 and 5 laminectomy in 2009 at the [facility]. PRECIPITATING EVENT: None DURATION OF SYMPTOMS: Greater Than 6 Weeks PAIN EVALUATION 06/18/2024 1004 Pain Level: 8 Pain Location: Back-Lower Description: Pressure Ulcer/Injury;Throbbing Duration Units: Unknown Frequency: Continuous Pain Radiation: Lower back pain occasionally radiating to right lower extremity Aggravating Factors: Constant, aggravated by standing, walking Alleviating Factors: Medications Pain Ratio: Pain in the back is greater than in the leg DERMATOMAL DISTRIBUTION: Not applicable AMBULATORY STATUS: Impaired Home Distances ANTIPLATELET OR ANTICOAGULATION STATUS: Aspirin PREVIOUS CONSERVATIVE TREATMENTS: Oxycodone IR Voltaren gel Robaxin Tylenol Medrol Dosepak Retrocardiac bursa injection without much pain relief PREVIOUS SPINAL SURGERY: SURGERY #1: Left L4-5, L5-S1 decompression 2009 ACTIVE PROBLEM LIST Actinic Keratosis Other Specified Disease of Sebaceous Glands Htn (Hypertension) Hyperlipidemia Statin Myopathy Preoperative Cardiovascular Examination Cad (Coronary Artery Disease) Abnormality of Gait Clear Outcomes Study, PI: Eva Fischer MD Divergence Insufficiency Paroxysmal Supraventricular Tachycardia (Hcc) Unstable Angina (Hcc) Acquired Hypothyroidism Transient Ischemic Attack Left Hemiparesis (Hcc) Interstitial Lung Disease (Hcc) Pulmonary Hypertension (Hcc) Status Post Coronary Angioplasty Stenosis of Both Vertebral Arteries Stuttering Left Arm Weakness Tremor, Unspecified Bradycardia Atherosclerosis of Aorta (Hcc) Obesity, Class I, Bmi 30-34.9 PAST MEDICAL HISTORY No date: Arthritis No date: Atrial fibrillation (HCC) Comment: pafib short lived suspected per apple watch strip, Biotel in place 10/03/2018: Benign paroxysmal positional vertigo of right ear 03/28/2019: CAD (coronary artery disease) Comment: LAD proximal stent , RCA nondominant bifurcating severe disease small medi (more content not included)... Normal [facility] 06-18-2024 CNPN Telephone (NIQ) ----- YANI GERARD ([id number]) 1940 F Date Time Provider Department 06/18/24 JOHN WEATHERS NI During your visit today, we recorded the following information about you: Jonna Donaldson 06/18/2024 2:26 PM Signed February, from [employer], called regarding prior authorization for the spine epidural injection. She says the patient is in a lot of pain, and we can call [facility] directly with an urgent request. Per February, we should call [facility] at , let them know it is an urgent request due to the patient being in a lot of pain. [employer] is also requesting that once we speak with [facility], that we call the patient with an update. Melony Alan 06/18/2024 2:50 PM Signed [employer] phoned to follow up with earlier call for authorization for Pt. Pt Sp has phoned [employer] to follow due to Pt Pain level. [employer] indicates this needs to be called in as urgent request to [employer]. [employer] [phone] Allergies As of Date: 06/18/2024 Noted Allergy Reaction ROPINIROLE 10/11/2021 14 - Other: See Comments Comments: Other reaction(s): nausea/dizziness, blurry vision [id number] REDUCTASE INHIBIT*04/26/2019 14 - Other: See Comments SULFA (SULFONAMIDE ANTIBIOTICS) 09/15/2005 2 - Rash Date Reviewed: 06/18/2024 Reviewed by: Palak Weeks MA - Fully Assessed Reason for Visit: Insurance Authorization [[id number]] Appointment [[id number]] Prescriptions as of 06/18/2024 - benzonatate (TESSALON PERLE) 100 mg capsule Take 100 mg by mouth. - methylPREDNISolone (MEDROL DOSE-PACK) 4 mg Dose-Pack follow package directions - omeprazole (PRILOSEC) 40 mg capsule TAKE 1 CAPSULE BY MOUTH ONCE DAILY 30 MINUTES before morning meal - ondansetron (ZOFRAN) 4 mg tablet TAKE 2 TABLETS BY MOUTH TWICE DAILY as directed for 14 days - oxybutynin XL (DITROPAN XL) 5 mg 24 hr tablet 5 mg. - oxyCODONE IR (ROXICODONE) 5 mg immediate release tablet Take 5 mg by mouth every 4 hours as needed. - ibuprofen (MOTRIN ORAL) Take by mouth. - furosemide (LASIX) 40 mg tablet Take 1 tablet by mouth two times a day. - pregabalin (LYRICA) 25 mg capsule Take 1 capsule by mouth two times a day for 90 days. - diclofenac (VOLTAREN ARTHRITIS PAIN) 1 % topical gel Apply 4 g to affected area four times daily. - methocarbamol (ROBAXIN) 750 mg tablet Take 1 tablet by mouth four times a day as needed. - ranolazine SR (RANEXA) 1,000 mg tab ER 12 hr Take 1 tablet by mouth two times a day. - potassium chloride ER (KLOR-CON) 20 mEq tablet Take 1 tablet by mouth once daily. - evolocumab (REPATHA SURECLICK) 140 mg/mL pen injector Inject 140 mg subcutaneously as directed. Inject 1 pen subcu every 2 wks - metoprolol succinate ER (TOPROL XL) 50 mg 24 hr tablet Take 0.5 tablet by mouth once daily. - losartan (COZAAR) 25 mg tablet Take 2 tablets by mouth two times a day. - levothyroxine (SYNTHROID) 50 mcg tablet Take 1 tablet by mouth daily at 6:00 am. Patient should start on December 12, 2023. - INV VITAMIN D3 5000 UNITS CAPSULE (IRB 19-3458) Take 5,000 Units by mouth once daily. For Investigational Drug Use Only. PI: Stevan Lozoya, PhD. Take one capsule by mouth daily for 3 months prior to surgery and 3 months after surgery. - cyanocobalamin (VITAMIN B-12) 1,000 mcg tab Take 1,000 mcg by mouth once daily. - biotin 1 mg cap Take by mouth. - omega 6-aoe-zyk-fish oil 1,000 mg (250 mg-750 mg)/5 mL liqd Take by mouth. - Magnesium 200 mg tab Take 2 tablets by mouth once daily. - aspirin 81 mg chewable tablet Aspirin Active 81 MG PO Daily March 27, 2019 11:00pm - isosorbide mononitrate ER (IMDUR) 30 mg 24 hr tablet Take 1 tablet by mouth once daily. - ezetimibe (ZETIA) 10 mg tablet Take 1 tablet by mouth once daily. - nitroglycerin sublingual (NITROQUICK) 0.3 mg SL tablet Dissolve 1 tablet under the tongue every 5 minutes as needed for chest pain. - esvwolesqui-qamkcuxlz-xsv anter (TRELEGY ELLIPTA) 100-62.5-25 mcg inhalation powder Inhale 1 Puff as instructed as needed. - cholecalciferol, vitamin D3, (VITAMIN D3 ORAL) Take by mouth. - Ascorbic Acid (VITAMIN C) 100 mg tablet Take 100 mg by mouth once daily. - acetaminophen 650 mg CR tablet Take 650 mg by mouth every 8 hours as needed. - pramipexole (MIRAPEX) 0.5 mg tablet Take 0.25 mg by mouth two times a day. Problem List As Of Date 06/18/2024 Noted Resolved ACTINIC KERATOSIS [L57.0] 07/22/2008 SEBACEOUS GLAND DIS NEC [L73.8] 07/22/2008 HTN (hypertension) [I10] 06/11/2014 Hyperlipidemia [E78.5] 06/11/2014 Statin myopathy (HCC) [G72.0, T46.6X5A] 06/11/2014 Preoperative cardiovascular examination [Z01.81*05/27/2015 CAD (coronary artery disease) [I25.10] 05/27/2015 Dizziness [R42] 09/24/2018 05/20/2021 Abnormality of gait [R26.9] 10/03/2018 Benign paroxysmal positional vertigo of right e*10/03/2018 05/20/2021 Clear Outcomes S (more content not included)... Normal [facility] MR LUMBAR SPINE WO CONTon MR LUMBAR SPINE WO CONT MR LUMBAR SPINE WO CONT STUDY: MR LUMBAR SPINE WO CONT HISTORY: Chronic midline low back pain with bilateral sciatica; Scoliosis of lumbar spine, unspecified scoliosis type; Spinal stenosis of lumbar region with neurogenic claudication; Radiculopathy, lumbar region; Lumbar pain TECHNIQUE: * Routine multiplanar multisequence MR imaging of the lumbar spine was performed without intravenous contrast. FINDINGS: Comparison is made to 05/17/2024. Levoconvex curvature of the lumbar spine. Mild lateral listhesis of L4 on L5. Nonacute height loss at the T12, L1, L2 and L3 endplates with some STIR hyperintense signal changes may reflect subacute fractures. Chronic superior endplate fractures of T12, L1, L2, with biconcave endplate fracture at L3. No evidence of acute fracture or traumatic malalignment. Moderate to severe degenerative spondylosis with intervertebral disc space narrowing most significant at L4-L5 and there is degenerative endplate changes and significant intervertebral disc space narrowing as well as disc herniation. Conus medullaris terminates at the level of L2. No distal cord signal abnormality. Cauda equina nerve roots are broadly unremarkable by technique. T12-L1: Mild diffuse disc bulge, mild facet arthropathy without significant spinal canal or neuroforaminal narrowing. L1-L2: Ivtv-ql-xznecmcp diffuse disc bulge, facet arthropathy with vyph-kb-dzgsnolm right neuroforaminal narrowing. No significant spinal canal narrowing. L2-L3: Mild diffuse disc bulge, mild facet arthropathy with mild right neuroforaminal narrowing. L3-L4: Mild diffuse disc bulge, mild ligamentum flavum hypertrophy and facet arthropathy, dorsal epidural lipomatosis, results in mild spinal canal narrowing with mild bilateral neuroforaminal narrowing. L4-L5: Moderate diffuse disc bulge, mild facet arthropathy with suggestion of left hemilaminectomy changes. No significant spinal canal narrowing. Moderate left greater than right neuroforaminal narrowing. L5-S1: Mild diffuse disc bulge, left hemilaminectomy changes without significant spinal canal narrowing. Severe left and no significant right neuroforaminal narrowing. Diverticulosis without diverticulitis. IMPRESSION: * Subacute endplate fractures at T12-L3, new or progressed since 05/17/2024. No significant retropulsion. * Apparent left hemilaminectomy changes at L4-L5 and L5-S1. * Significant left neuroforaminal narrowing at left L5-S1 and to a lesser extent L4-L5. * Scoliosis and degenerative spondylosis as described. 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 Of more concern is chronic right-sided low back pain which has been problematic for about the last 2 months. This evolved in the absence of any antecedent or otherwise associated strain, sprain or trauma. Initially this was localized to the groin but subsequently shifted to the right side of the low back. This may radiate into the right buttock and perhaps the proximal right thigh. She is found lying supine in a recliner comfortable. For some reason sleeping in a bed is quite problematic and with weightbearing there may be some transient improvement before worsening of the symptoms. Concern has been raised with regard to the possibility of a recent vertebral fracture. Today on examination she is awake, alert, pleasant, cooperative and coherent. Cranial Nerves: II-visual mario full III IV -extraocular movements normal VII-muscles of facial expression normal in power bilaterally. Motor System: The tendon reflexes are symmetric. Strength in the deltoids, biceps, triceps, wrist extensors, finger extensors, interossei, iliopsoas, quadriceps, hamstrings, anterior tibialis and toe extensors is well-preserved. Other Observations: A bit of tenderness may be present in the right sided lumbar paraspinal musculature. In summary, her main problem currently is chronic pain as previously delineated. I have encouraged her not to initiate any invasive treatments. A follow-up visit has been scheduled. Allergies As of Date: 06/12/2024 Noted Allergy Reaction ROPINIROLE 10/11/2021 14 - Other: See Comments Comments: Other reaction(s): nausea/dizziness, blurry vision [id number] REDUCTASE INHIBIT*04/26/2019 14 - Other: See Comments SULFA (SULFONAMIDE ANTIBIOTICS) 09/15/2005 2 - Rash Date Reviewed: 06/12/2024 Reviewed by: Jayden Burks MD - Fully Assessed Reason for Visit: Follow Up [171] Movement Disorder [Other] Low Back Pain [126] Primary Visit Diagnosis:Chronic right-sided low back pain without sciatica [M54.50, G89.29] Prescriptions as of 06/12/2024 - oxyCODONE IR (ROXICODONE) 5 mg immediate release tablet Take 5 mg by mouth every 4 hours as needed. - ibuprofen (MOTRIN ORAL) Take by mouth. - furosemide (LASIX) 40 mg tablet Take 1 tablet by mouth two times a day. - pregabalin (LYRICA) 25 mg capsule Take 1 capsule by mouth two times a day for 90 days. - diclofenac (VOLTAREN ARTHRITIS PAIN) 1 % topical gel Apply 4 g to affected area four times daily. - methocarbamol (ROBAXIN) 750 mg tablet Take 1 tablet by mouth four times a day as needed. - ranolazine SR (RANEXA) 1,000 mg tab ER 12 hr Take 1 tablet by mouth two times a day. - potassium chloride ER (KLOR-CON) 20 mEq tablet Take 1 tablet by mouth once daily. - evolocumab (REPATHA SURECLICK) 140 mg/mL pen injector Inject 140 mg subcutaneously as directed. Inject 1 pen subcu every 2 wks - metoprolol succinate ER (TOPROL XL) 50 mg 24 hr tablet Take 0.5 tablet by mouth once daily. - losartan (COZAAR) 25 mg tablet Take 2 tablets by mouth two times a day. - levothyroxine (SYNTHROID) 50 mcg tablet Take 1 tablet by mouth daily at 6:00 am. Patient should start on December 12, 2023. - INV VITAMIN D3 5000 UNITS CAPSULE (IRB 19-1548) Take 5,000 Units by mouth once daily. For Investigational Drug Use Only. PI: Stevan Lozoya, PhD. Take one capsule by mouth daily for 3 months prior to surgery and 3 months after surgery. - cyanocobalamin (VITAMIN B-12) 1,000 mcg tab Take 1,000 mcg by mouth once daily. - biotin 1 mg cap Take by mouth. - omega 0-sau-row-fish oil 1,000 mg (250 mg-750 mg)/5 mL liqd Take by mouth. - Magnesium 200 mg tab Take 2 tablets by mouth once daily. - aspirin 81 mg chewable tablet Aspirin Active 81 MG PO Daily March 27, 2019 11:00pm - isosorbide mononitrate ER (IMDUR) 30 mg 24 hr tablet Take 1 tablet by mouth once daily. - ezetimibe (ZETIA) 10 mg tablet Take 1 tablet by mouth once daily. - nitroglycerin sublingual (NITROQUICK) 0.3 mg SL tablet Dissolve 1 tablet under the tongue every 5 minutes as needed for chest pain. - xzdxaegorpb-wvutleqfz-psf anter (TRELEGY ELLIPTA) 100-62.5-25 mcg inhalation powder Inhale 1 Puff as instructed as needed. - cholecalciferol, vitamin D3, (VITAMIN D3 ORAL) Take by mouth. - Ascorbic Acid (VITAMIN C) 100 mg tablet Take 100 mg by mouth once daily. - acetaminophen 650 mg CR tablet Take 650 mg by mouth every 8 hours as needed. (more content not included)... Normal [facility] XR SPINE LUMB BENDING ONLY 2 -3 VWSon 06-11-2024 XR SPINE LUMB BENDING ONLY 2-3 VWS XR SPINE LUMB BENDING ONLY 2-3 VWS XR SPINE LUMB BENDING ONLY 2-3 VWS History: Lumbar pain Impression: * Moderate endplate compression fractures at L1-L3 as well as T12 and may be worse in the short interval. These could be further characterized by a repeat MRI. * Diffuse disc disease and facet arthritis. . similar to April 30 * Stable flexion-extension Finalized by Sunny Knox MD on 06/11/2024 5:52 PM Normal [facility] XR SPINE SCOLIOSIS 2 OR 3 VW Son 06-11-2024 XR SPINE SCOLIOSIS 2 OR 3 VWS XR SPINE SCOLIOSIS 2 OR 3 VWS History: Chronic midline low back pain with bilateral sciatica; Scoliosis of lumbar spine, unspecified scoliosis type XR SPINE SCOLIOSIS 2 OR 3 VWS Comparison: none Impression: * Moderate left convex curvature T12-L4 measuring 22.1 degrees. * Moderate compression fracture at the lower thoracic spine approximately T11 and T12 level which appear new compared to MRI from May 17. Compression fracture at L3 is unchanged. For reference: Indications to consider ordering an MRI scan in a child with scoliosis include persistent pain, abnormal neurologic findings, presence of abnormal bone structure (congenital scoliosis), atypical curve pattern (Left convex thoracic), and rapid progression of the curve. MRI scans are ordered in these cases to look for abnormalities of the neurologic structures (syrinx, brainstem abnormalities, or tethered cord) . Finalized by Sunny Knox MD on 06/11/2024 5:16 PM Normal [facility] 05-31-[address] [facility] Telephone (NSFRVW) ----- YANI GERARD ([id number]) 1940 F Date Time Provider Department 05/31/24 JOHN WEATHERS NSFRVW During your visit today, we recorded the following information about you: Suresh Albert RN 05/31/2024 8:57 AM Signed Received referral from dr Pham to see pt CAROL Allergies As of Date: 05/31/2024 Noted Allergy Reaction ROPINIROLE 10/11/2021 14 - Other: See Comments Comments: Other reaction(s): nausea/dizziness, blurry vision [id number] REDUCTASE INHIBIT*04/26/2019 14 - Other: See Comments SULFA (SULFONAMIDE ANTIBIOTICS) 09/15/2005 2 - Rash Date Reviewed: 05/29/2024 Reviewed by: Nikolas Waters MA - Fully Assessed Prescriptions as of 06/03/2024 - oxyCODONE IR (ROXICODONE) 5 mg immediate release tablet Take 5 mg by mouth every 4 hours as needed. - ibuprofen (MOTRIN ORAL) Take by mouth. - furosemide (LASIX) 40 mg tablet Take 1 tablet by mouth two times a day. - cephALEXin (KEFLEX) 500 mg capsule Take 1 capsule by mouth two times a day for 7 days. - pregabalin (LYRICA) 25 mg capsule Take 1 capsule by mouth two times a day for 90 days. - diclofenac (VOLTAREN ARTHRITIS PAIN) 1 % topical gel Apply 4 g to affected area four times daily. - methocarbamol (ROBAXIN) 750 mg tablet Take 1 tablet by mouth four times a day as needed. - ranolazine SR (RANEXA) 1,000 mg tab ER 12 hr Take 1 tablet by mouth two times a day. - potassium chloride ER (KLOR-CON) 20 mEq tablet Take 1 tablet by mouth once daily. - evolocumab (REPATHA SURECLICK) 140 mg/mL pen injector Inject 140 mg subcutaneously as directed. Inject 1 pen subcu every 2 wks - metoprolol succinate ER (TOPROL XL) 50 mg 24 hr tablet Take 0.5 tablet by mouth once daily. - losartan (COZAAR) 25 mg tablet Take 2 tablets by mouth two times a day. - levothyroxine (SYNTHROID) 50 mcg tablet Take 1 tablet by mouth daily at 6:00 am. Patient should start on December 12, 2023. - INV VITAMIN D3 5000 UNITS CAPSULE (IRB 19-1548) Take 5,000 Units by mouth once daily. For Investigational Drug Use Only. PI: Stevan Lozoya, PhD. Take one capsule by mouth daily for 3 months prior to surgery and 3 months after surgery. - cyanocobalamin (VITAMIN B-12) 1,000 mcg tab Take 1,000 mcg by mouth once daily. - biotin 1 mg cap Take by mouth. - omega 8-owe-kra-fish oil 1,000 mg (250 mg-750 mg)/5 mL liqd Take by mouth. - Magnesium 200 mg tab Take 2 tablets by mouth once daily. - aspirin 81 mg chewable tablet Aspirin Active 81 MG PO Daily March 27, 2019 11:00pm - isosorbide mononitrate ER (IMDUR) 30 mg 24 hr tablet Take 1 tablet by mouth once daily. - ezetimibe (ZETIA) 10 mg tablet Take 1 tablet by mouth once daily. - nitroglycerin sublingual (NITROQUICK) 0.3 mg SL tablet Dissolve 1 tablet under the tongue every 5 minutes as needed for chest pain. - vnosdrsovpd-rltzsarsz-ssd anter (TRELEGY ELLIPTA) 100-62.5-25 mcg inhalation powder Inhale 1 Puff as instructed as needed. - cholecalciferol, vitamin D3, (VITAMIN D3 ORAL) Take by mouth. - Ascorbic Acid (VITAMIN C) 100 mg tablet Take 100 mg by mouth once daily. - acetaminophen 650 mg CR tablet Take 650 mg by mouth every 8 hours as needed. - pramipexole (MIRAPEX) 0.5 mg tablet Take 0.25 mg by mouth two times a day. Problem List As Of Date 05/31/2024 Noted Resolved ACTINIC KERATOSIS [L57.0] 07/22/2008 SEBACEOUS GLAND DIS NEC [L73.8] 07/22/2008 HTN (hypertension) [I10] 06/11/2014 Hyperlipidemia [E78.5] 06/11/2014 Statin myopathy (HCC) [G72.0, T46.6X5A] 06/11/2014 Preoperative cardiovascular examination [Z01.81*05/27/2015 CAD (coronary artery disease) [I25.10] 05/27/2015 Dizziness [R42] 09/24/2018 05/20/2021 Abnormality of gait [R26.9] 10/03/2018 Benign paroxysmal positional vertigo of right e*10/03/2018 05/20/2021 Clear Outcomes Study, PI: Eva Ficsher MD [Z00.6]10/04/2018 Lumbar back pain with radiculopathy affecting l*03/21/2019 05/20/2021 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 Normal [facility] CBC W Auto Differential pane l (Bld)on 05-29-2024 Basophils (Bld) [#/Vol] 0.03 10*3/uL Normal <0.11 [facility] Comment on above: Order Comment: Speci men Type: BLOOD SPECIMENOrdering Facility: [facility] Address: [address] [place] [address] Performed By: #### 5 7021-8 ####[facility] LABORATORYCLIA [id number] [place] [id number] [place] Basophils/100 WBC (Bld) 0.5 % Normal [facility] Comment on above: Order Comment: Speci men Type: BLOOD SPECIMENOrdering Facility: [facility] Address: [address] [place] [address] Performed By: #### 5 7021-8 ####[facility] LABORATORYCLIA [id number] [place] [address] [place] Differential cell count method Nom (Bld) Auto Normal [facility] Comment on above: Order Comment: Speci men Type: BLOOD SPECIMENOrdering Facility: [facility] Address: [address] [place] [address] Performed By: #### 5 7021-8 ####[facility] LABORATORYCLIA [id number] [place] Eosinophils (Bld) [#/Vol] 0.13 10*3/uL Normal <0.46 [facility] Comment on above: Order Comment: Speci men Type: BLOOD SPECIMENOrdering Facility: [facility] Address: [address] [place] [address] Performed By: #### 5 7021-8 ####[facility] LABORATORYCLIA [id number] [address] [place] Eosinophils/100 WBC (Bld) 2.0 % Normal [facility] Comment on above: Order Comment: Speci men Type: BLOOD SPECIMENOrdering Facility: [facility] Address: [address] [place] [address] Performed By: #### 5 7021-8 ####[facility] LABORATORYCLIA [id number] [address] [place] Erythrocyte distribution width (RBC) [Ratio] 13.5 % Normal 11.5-15.0 [facility] Comment on above: Order Comment: Speci men Type: BLOOD SPECIMENOrdering Facility: [facility] Address: [address] [place] [address] Performed By: #### 5 7021-8 ####[facility] LABORATORYCLIA [id number] [address] [place] Hematocrit (Bld) [Volume fraction] 39.7 % Normal 36.0-46.0 [facility] Comment on above: Order Comment: Speci men Type: BLOOD SPECIMENOrdering Facility: [facility] Address: [address] [place] [address] Performed By: #### 5 7021-8 ####[facility] LABORATORYCLIA [id number] [place] [address] [place] Hemoglobin (Bld) [Mass/Vol] 13.4 g/dL Normal 11.5-15.5 [facility] Comment on above: Order Comment: Speci men Type: BLOOD SPECIMENOrdering Facility: [facility] Address: [address] [place] [address] Performed By: #### 5 7021-8 ####[facility] LABORATORYCLIA [id number] [place] [id number] [place] Immature granulocytes (Bld) [#/Vol] 0.03 10*3/uL Normal <0.10 [facility] Comment on above: Order Comment: Speci men Type: BLOOD SPECIMENOrdering Facility: [facility] Address: [address] [place] [address] Performed By: #### 5 7021-8 ####[facility] LABORATORYCLIA [id number] [place] [address] [place] Immature granulocytes/100 WBC (Bld) 0.5 % Normal [facility] Comment on above: Order Comment: Speci men Type: BLOOD SPECIMENOrdering Facility: [facility] Address: [address] [place] [address] Performed By: #### 5 7021-8 ####[facility] LABORATORYCLIA [id number] [place] [address] [place] Lymphocytes (Bld) [#/Vol] 1.16 10*3/uL Normal 1.00-4.00 [facility] Comment on above: Order Comment: Speci men Type: BLOOD SPECIMENOrdering Facility: [facility] Address: [address] [place] [address] Performed By: #### 5 7021-8 ####[facility] LABORATORYCLIA [id number] [place] [address] [place] Lymphocytes/100 WBC (Bld) 17.7 % Normal [facility] Comment on above: Order Comment: Speci men Type: BLOOD SPECIMENOrdering Facility: [facility] Address: [address] [place] [address] Performed By: #### 5 7021-8 ####[facility] LABORATORYCLIA [id number] [address] [place] MCH (RBC) [Entitic mass] 33.1 pg Normal 26.0-34.0 [facility] Comment on above: Order Comment: Speci men Type: BLOOD SPECIMENOrdering Facility: [facility] Address: [address] [place] [address] Performed By: #### 5 7021-8 ####[facility] LABORATORYCLIA [id number] [place] [address] [place] MCHC (RBC) [Mass/Vol] 33.8 g/dL Normal 30.5-36.0 [facility] Comment on above: Order Comment: Speci men Type: BLOOD SPECIMENOrdering Facility: [facility] Address: [address] [place] [address] Performed By: #### 5 7021-8 ####[facility] LABORATORYCLIA [id number] [address] [place] MCV (RBC) [Entitic vol] 98.0 fL Normal 80.0-100.0 [facility] Comment on above: Order Comment: Speci men Type: BLOOD SPECIMENOrdering Facility: [facility] Address: [address] [place] [address] Performed By: #### 5 7021-8 ####[facility] LABORATORYCLIA [id number] [address] [place] Monocytes (Bld) [#/Vol] 0.71 10*3/uL Normal <0.87 [facility] Comment on above: Order Comment: Speci men Type: BLOOD SPECIMENOrdering Facility: [facility] Address: [address] [place] [address] Performed By: #### 5 7021-8 ####[facility] LABORATORYCLIA [id number] [address] Monocytes/100 WBC (Bld) 10.9 % Normal [facility] Comment on above: Order Comment: Speci men Type: BLOOD SPECIMENOrdering Facility: [facility] Address: [address] [place] [address] Performed By: #### 5 7021-8 ####[facility] LABORATORYCLIA [id number] [place] [id number] [place] Neutrophils (Bld) [#/Vol] 4.48 10*3/uL Normal 1.45-7.50 [facility] Comment on above: Order Comment: Speci men Type: BLOOD SPECIMENOrdering Facility: [facility] Address: [address] [place] [address] Performed By: #### 5 7021-8 ####[facility] LABORATORYCLIA [id number] [place] [id number] [place] Neutrophils/100 WBC (Bld) 68.4 % Normal [facility] Comment on above: Order Comment: Speci men Type: BLOOD SPECIMENOrdering Facility: [facility] Address: [address] [place] [address] Performed By: #### 5 7021-8 ####[facility] LABORATORYCLIA [id number] [place] [address] [place] Nucleated RBC (Bld) [#/Vol] 10*3/uL Normal <0.01 [facility] Comment on above: Order Comment: Speci men Type: BLOOD SPECIMENOrdering Facility: [facility] Address: [address] [place] [address] Performed By: #### 5 7021-8 ####[facility] LABORATORYCLIA [id number] [place] [id number] [place] Nucleated RBC/100 WBC (Bld) [Ratio] 0.0 /100 WBC Normal [facility] Comment on above: Order Comment: Speci men Type: BLOOD SPECIMENOrdering Facility: [facility] Address: [address] [place] [address] Performed By: #### 5 7021-8 ####[facility] LABORATORYCLIA [id number] [place] [id number] [place] Platelet mean volume (Bld) [Entitic vol] 10.1 fL Normal 9.0-12.7 [facility] Comment on above: Order Comment: Speci men Type: BLOOD SPECIMENOrdering Facility: [facility] Address: [address] [place] [address] Performed By: #### 5 7021-8 ####[facility] LABORATORYCLIA [id number] [place] [id number] [place] Platelets (Bld) [#/Vol] 237 10*3/uL Normal 150-400 [facility] Comment on above: Order Comment: Speci men Type: BLOOD SPECIMENOrdering Facility: [facility] Address: [address] [place] [address] Performed By: #### 5 7021-8 ####[facility] LABORATORYCLIA [id number] [place] [id number] [place] RBC (Bld) [#/Vol] 4.05 10*6/uL Normal 3.90-5.20 [facility] Comment on above: Order Comment: Speci men Type: BLOOD SPECIMENOrdering Facility: [facility] Address: [address] [place] [address] Performed By: #### 5 7021-8 ####[facility] LABORATORYCLIA [id number] [place] [id number] [place] WBC (Bld) [#/Vol] 6.54 10*3/uL Normal 3.70-11.00 [facility] Comment on above: Order Comment: Speci men Type: BLOOD SPECIMENOrdering Facility: [facility] Address: [address] [place] [address] Performed By: #### 5 7021-8 ####[facility] LABORATORYCLIA [id number] [place] [id number] [facility] [place] CNCOon 05-29-2024 CNCO Letter Text Letter Text Normal [facility] CNOVon 05-29-2024 CNOV Office Visit (CARDFV ) ----- PLEUNIK,YANI A ([id number]) 1940 F Date Time Provider Department 05/29/24 11:30 AM FIONA HARKINS During your visit today, we recorded the following information about you: Pulse Blood pressure Weight Height 72/minute 156/69 74.6 kg 1.549 m Fiona Harkins MD 05/29/2024 11:36 AM Signed [facility] Department of Cardiovascular Medicine [facility] OUTPATIENT VISIT DATE May 29, 2024 OUTPATIENT VISIT TYPE Established Patient PRIMARY CARE PHYSICIAN: Kyle Amin [address] [place] [address] REFERRING PHYSICIAN: Kyle Amin [address] [facility] [address] CHIEF COMPLAINT: Followup HISTORY OF PRESENT ILLNESS: Ms. Gerard is a 83 year old female who presents today with cor stenting and afib short lived with no recurrence. She has had severe right lower back pain, crippling seen in [place] awaiting possible back surgery . . She denies chest pain, shortness of breath, orthopnea, cough, edema, palpitations, PND, lightheadedness or syncope. PROBLEM LIST: Specialty Problems Cardiology Problems HTN (hypertension) Hyperlipidemia CAD (coronary artery disease) Pulmonary hypertension (HCC) Paroxysmal supraventricular tachycardia (HCC) Unstable angina (HCC) Transient ischemic attack Bradycardia Atherosclerosis of aorta (HCC) PAST MEDICAL HISTORY No date: Arthritis No date: Atrial fibrillation (HCC) Comment: pafib short lived suspected per apple watch strip, Biotel in place 10/03/2018: Benign paroxysmal positional vertigo of right ear 03/28/2019: CAD (coronary artery disease) Comment: LAD proximal stent , RCA nondominant bifurcating severe disease small medical rx No date: Cancer (HCC) 09/24/2018: Dizziness No date: HTN (hypertension) No date: Hypertension 03/21/2019: Lumbar back pain with radiculopathy affecting left lower extremity No date: Pulmonary HTN (HCC) No date: TIA (transient ischemic attack) Comment: left leg motion movement and slurred speech PAST SURGICAL HISTORY 03/28/2019: CC CORONARY STENT Comment: LAD prox stent , RCA nondominant bifurcating severe disease small medical rx , [facility] -No restenosis in stent lad mild disease 06/14/23 No date: POST-CATARACT LASER SURGERY; Bilateral 2016: REMV CATARACT EXTRACAP,INSERT LENS; Bilateral No date: REVISE TOTAL HIP REPLACEMENT; Right No date: TOTAL HIP REPLACEMENT; Right SOCIAL HISTORY Social History Tobacco Use Smoking status: Never Smokeless tobacco: Never Vaping Use Vaping Use: Never used Substance Use Topics Alcohol use: Yes Comment: wine occas Drug use: No FAMILY HISTORY Problem Relation Age of Onset Heart Mother heart attack Hypertension Mother Cancer Mother stomach Cancer Sister breast non smoker half sister Heart Maternal Grandmother heart attack Diabetes No Family History Cataract No Family History Glaucoma No Family History Macular Degen No Family History ALLERGIES: ALLERGIES Allergen Reactions Ropinirole Other: See Comments Other reaction(s): nausea/dizziness, blurry vision Luhefct-Wve-Ovf Red* Other: See Comments Sulfa (Sulfonamide * Rash MEDICATIONS: oxyCODONE IR (ROXICODONE) 5 mg immediate release tablet Take 5 mg by mouth every 4 hours as needed. ibuprofen (MOTRIN ORAL) Take by mouth. diclofenac (VOLTAREN ARTHRITIS PAIN) 1 % topical gel Apply 4 g to affected area four times daily. methocarbamol (ROBAXIN) 750 mg tablet Take 1 tablet by mouth four times a day as needed. ranolazine SR (RANEXA) 1,000 mg tab ER 12 hr Take 1 tablet by mouth two times a day. potassium chloride ER (KLOR-CON) 20 mEq tablet Take 1 tablet by mouth once daily. evolocumab (REPATHA SURECLICK) 140 mg/mL pen injector Inject 140 mg subcutaneously as directed. Inject 1 pen subcu every 2 wks metoprolol succinate ER (TOPROL XL) 50 mg 24 hr tablet Take 0.5 tablet by mouth once daily. losartan (COZAAR) 25 mg tablet Take 2 tablets by mouth two times a day. levothyroxine (SYNTHROID) 50 mcg tablet Take 1 tablet by mouth daily at 6:00 am. Patient should start on December 12, 2023. INV VITAMIN D3 5000 UNITS CAPSULE (IRB 19-1548) Take 5,000 Units by mouth once daily. For Investigational Drug Use Only. PI: Stevan Lozoya, PhD. Take one capsule by mouth daily for 3 months prior to surgery and 3 months after surgery. cyanocobalamin (VITAMIN B-12) 1,000 mcg tab Take 1,000 mcg by mouth once daily. biotin 1 mg cap Take by mouth. omega 2-ubp-iiw-fish oil 1,000 mg (250 mg-750 mg)/5 mL liqd Take by mouth. Magnesium 200 mg tab Take 2 tablets by mouth once daily. aspirin 81 mg chewable tablet Aspirin Active 81 MG PO Daily March 27, 2019 11:00pm isosorbide mononitrate ER (IMDUR) 3 (more content not included)... Normal [facility] Comprehensive metabolic 2000 panelon 05-29-2024 Albumin [Mass/Vol] 4.1 g/dL Normal 3.9-4.9 [facility] Comment on above: Order Comment: Speci men Type: BLOOD SPECIMENOrdering Facility: [facility] Address: [address] [place] [address] Performed By: #### 2 4323-8 ####[facility] LABORATORYCLIA [id number] [place] [address] [place] ALP [Catalytic activity/Vol] 132 U/L High 34-123 [facility] Comment on above: Order Comment: Speci men Type: BLOOD SPECIMENOrdering Facility: [facility] Address: [address] [place] [address] Performed By: #### 2 4323-8 ####[facility] LABORATORYCLIA [id number] [place] [address] [place] ALT [Catalytic activity/Vol] 14 U/L Normal 7-38 [facility] Comment on above: Order Comment: Speci men Type: BLOOD SPECIMENOrdering Facility: [facility] Address: [address] [place] [address] Performed By: #### 2 4323-8 ####[facility] LABORATORYCLIA [id number] [place] [id number] [place] Anion gap [Moles/Vol] 11 mmol/L Normal 8-15 [facility] Comment on above: Order Comment: Speci men Type: BLOOD SPECIMENOrdering Facility: [facility] Address: [address] [place] [address] Performed By: #### 2 4323-8 ####[facility] LABORATORYCLIA [id number] [place] [address] [place] AST [Catalytic activity/Vol] 11 U/L Low 13-35 [facility] Comment on above: Order Comment: Speci men Type: BLOOD SPECIMENOrdering Facility: [facility] Address: [address] [place] [address] Performed By: #### 2 4323-8 ####[facility] LABORATORYCLIA [id number] [place] [id number] [place] Bilirubin [Mass/Vol] 0.2 mg/dL Normal 0.2-1.3 [facility] Comment on above: Order Comment: Speci men Type: BLOOD SPECIMENOrdering Facility: [facility] Address: [address] [place] [address] Performed By: #### 2 4323-8 ####[facility] LABORATORYCLIA [id number] [place] [address] [place] Calcium [Mass/Vol] 9.0 mg/dL Normal 8.5-10.2 [facility] Comment on above: Order Comment: Speci men Type: BLOOD SPECIMENOrdering Facility: [facility] Address: [address] [place] [address] Performed By: #### 2 4323-8 ####[facility] LABORATORYCLIA [id number] [place] [address] [place] Chloride [Moles/Vol] 99 mmol/L Normal 98-107 [facility] Comment on above: Order Comment: Speci men Type: BLOOD SPECIMENOrdering Facility: [facility] Address: [address] [place] [address] Performed By: #### 2 4323-8 ####[facility] LABORATORYCLIA [id number] [place] [id number] [place] CO2 [Moles/Vol] 28 mmol/L Normal 22-30 [facility] Comment on above: Order Comment: Speci men Type: BLOOD SPECIMENOrdering Facility: [facility] Address: [address] [place] [address] Performed By: #### 2 4323-8 ####[facility] LABORATORYCLIA [id number] [place] [address] [place] Creatinine [Mass/Vol] 0.66 mg/dL Normal 0.58-0.96 [facility] Comment on above: Order Comment: Maycol hdez Type: BLOOD SPECIMENOrdering Facility: [facility] Address: [address] [place] [address] Performed By: #### 2 4323-8 ####[facility] LABORATORYCLIA [id number] [place] [address] [place] [facility] Creatinine and Glomerular filtration rate.predicted panel (S/P/Bld) 87 mL/min/1.73m??? Normal >=60 [facility] Comment on above: Order Comment: Kaur ketty Type: BLOOD SPECIMENOrdering Facility: [facility] Address: [address] [place] [address] Result Comment: Mallika mated Glomerular Filtration Rate (eGFR) is calculated using the 2020 CKD-EPI creatinine equation. This equation utilizes serum creatinine, sex, and age as parameters. The creatinine assay has traceable calibration to isotope dilution-mass spectrometry. Refer to KDIGO guidelines for clinical interpretation. In patients with unstable renal function, e.g. those with acute kidney injury, the eGFR may not accurately reflect actual GFR. Performed By: #### 2 4323-8 ####[facility] LABORATORYCLIA [id number] [place] [id number] [place] Glucose [Mass/Vol] 112 mg/dL High 74-99 [facility] Comment on above: Order Comment: Maycol hdez Type: BLOOD SPECIMENOrdering Facility: [facility] Address: [address] [place] [address] Result Comment: The [place] [employer] (ADA) provides guidance for cutoff values for fasting glucose and random glucose. The ADA defines fasting as no caloric intake for at least 8 hours. Fasting plasma glucose results between 100 to 125 mg/dL indicate increased risk for diabetes (prediabetes). Fasting plasma glucose results greater than or equal to 126 mg/dL meet the criteria for diagnosis of diabetes. In the absence of unequivocal hyperglycemia, results should be confirmed by repeat testing. In a patient with classic symptoms of hyperglycemia or hyperglycemic crisis, random plasma glucose results greater than or equal to 200 mg/dL meet the criteria for diagnosis of diabetes. Reference: Standards of Medical Care in Diabetes 2016, [place] [employer]. Diabetes Care. 2016.39(Suppl 1). Performed By: #### 2 4323-8 ####[facility] LABORATORYCLIA [id number] [place] [id number] [place] Potassium [Moles/Vol] 4.0 mmol/L Normal 3.7-5.1 [facility] Comment on above: Order Comment: Speci men Type: BLOOD SPECIMENOrdering Facility: [facility] Address: [address] [place] [address] Performed By: #### 2 4323-8 ####[facility] LABORATORYCLIA [id number] [place] [id number] [place] Protein [Mass/Vol] 6.6 g/dL Normal 6.3-8.0 [facility] Comment on above: Order Comment: Speci men Type: BLOOD SPECIMENOrdering Facility: [facility] Address: [address] [place] [address] Performed By: #### 2 4323-8 ####[facility] LABORATORYCLIA [id number] [place] [address] [place] Sodium [Moles/Vol] 138 mmol/L Normal 136-144 [facility] Comment on above: Order Comment: Kauri men Type: BLOOD SPECIMENOrdering Facility: [facility] Address: [address] [place] [address] Performed By: #### 2 4323-8 ####[facility] LABORATORYCLIA [id number] [place] [id number] [place] Urea nitrogen [Mass/Vol] 15 mg/dL Normal 7-21 [facility] Comment on above: Order Comment: Speci men Type: BLOOD SPECIMENOrdering Facility: [facility] Address: [address] [place] [address] Performed By: #### 2 4323-8 ####[facility] LABORATORYCLIA [id number] [place] [id number] [place] ED NOTEon 05-29-2024 ED NOTE HNO ID: [id number] Author: MITCH ELIZABETH RN Service: ? Author Type: Registered Nurse Type: ED Notes Filed: 05/29/2024 21:26 Note Text: Patient was given a disposition of Eloped Lab Studies Resulted labs were reviewed with Dr Friend provider and there are no significant abnormalities Radiology Studies There are no in process or resulted radiology studies at this time Normal [facility] ED Triage Noteon 05-29-2024 ED Triage Note HNO ID: [id number] Author: NELLY FRIEND MD Service: Emergency Medicine Author Type: Physician Type: ED Triage Notes Filed: 05/29/2024 17:35 Note Text: ED TRIAGE PROVIDER NOTE Patient Name: Yani Gerard Service Date: 05/29/24 BRIEF HPI: This is a 83 year old female who presents to the ED with: Had MRI on 05/17 which showed possible subacute fracture. Before MRI had lost bladder function with standing. Pt with continued low back pain. Pt taking tylenol and oxycodone. Pt with persistent pain. Pt has increased urinary frequency. States now she is urinating a few times an hour. When she stands up she leaks urine. Sent over by her spine doctor because of intractable pain BRIEF EXAM: NAD Awake and Alert Non labored breathing No focal neurological deficits INITIAL WORKUP AND DECISION MAKING: Orders Placed This Encounter COMPREHENSIVE METABOLIC PANEL (BMP+LFT) CBC + AUTO DIFF Urinalysis w Microscopic, reflex Culture SIGNATURE: Nelly Friend MD Normal [facility] Urinalysis complete panel (U )on 05-29-2024 Bacteria LM.HPF (Urine sed) [#/Area] Rare Abnormal None Seen [facility] Comment on above: Order Comment: Speci men Type: URINE SPECIMENOrdering Facility: [facility] Address: [address] [place] [address] Performed By: #### 2 4356-8 ####[facility] LABORATORYCLIA [id number] [place] [address] [place] [facility] LABCL[facility] [id number] [address] [place] Bilirubin Ql (U) Negative Normal Negative [facility] Comment on above: Order Comment: Speci men Type: URINE SPECIMENOrdering Facility: [facility] Address: [address] [place] [address] Performed By: #### 2 4356-8 ####[facility] LABORATORYCLIA [id number] [address] LABCLIA [id number] [place] [address] [place] Clarity (Unsp spec) Clear Normal Clear [facility] Comment on above: Order Comment: Speci men Type: URINE SPECIMENOrdering Facility: [facility] Address: [address] [place] [address] Performed By: #### 2 4356-8 ####[facility] LABORATORYCLIA [id number] [address] LABCLIA [id number] [place] [address] [place] Color (U) Light Yellow Normal Yellow [facility] Comment on above: Order Comment: Speci men Type: URINE SPECIMENOrdering Facility: [facility] Address: [address] [place] [address] Performed By: #### 2 4356-8 ####[facility] LABORATORYCLIA [id number] [address] LABCLIA [id number] [place] [address] [place] Epithelial cells LM.HPF (Urine sed) [#/Area] Few Normal [facility] Comment on above: Order Comment: Speci men Type: URINE SPECIMENOrdering Facility: [facility] Address: [address] [place] [address] Performed By: #### 2 4356-8 ####[facility] LABORATORYCLIA [id number] [address] LABCLIA [id number] [place] [id number] [place] Glucose Test strip (U) [Mass/Vol] Negative Normal Trace, Negative [facility] Comment on above: Order Comment: Speci men Type: URINE SPECIMENOrdering Facility: [facility] Address: [address] [place] [address] Performed By: #### 2 4356-8 ####[facility] LABORATORYCLIA [id number] [address] LABCLIA [id number] [place] [address] [place] Hemoglobin Ql (U) Negative Normal Negative, Trace [facility] Comment on above: Order Comment: Speci men Type: URINE SPECIMENOrdering Facility: [facility] Address: [address] [place] [address] Performed By: #### 2 4356-8 ####[facility] LABORATORYCLIA [id number] [address] LABCLIA [id number] [address] OF [facility] Ketones Ql (U) Negative Normal Negative, Trace [facility] Comment on above: Order Comment: Speci men Type: URINE SPECIMENOrdering Facility: [facility] Address: [address] [place] [address] Performed By: #### 2 4356-8 ####[facility] LABORATORYCLIA [id number] [address] LABCLIA [id number] [address] [place] Leukocyte esterase Test strip Ql (U) 500 Frank/uL Abnormal Negative, 25 Frank/uL [facility] Comment on above: Order Comment: Speci men Type: URINE SPECIMENOrdering Facility: [facility] Address: [address] [place] [address] Performed By: #### 2 4356-8 ####[facility] LABORATORYCLIA [id number] [address] [address] LABCLIA [id number] [address] [place] Nitrite Ql (U) Negative Normal Negative [facility] Comment on above: Order Comment: Speci men Type: URINE SPECIMENOrdering Facility: [facility] Address: [address] [place] [address] Performed By: #### 2 4356-8 ####[facility] LABORATORYCLIA [id number] [address] LABCLIA [id number] [address] [place] pH (U) 6.0 [pH] Normal 5.0-8.0 [facility] Comment on above: Order Comment: Speci men Type: URINE SPECIMENOrdering Facility: [facility] Address: [address] [place] [address] Performed By: #### 2 4356-8 ####[facility]ATORYCL[facility] [id number] [address] LABCLIA [id number] [place] [address] [place] Protein (U) [Mass/Vol] Negative Normal Trace , Negative [facility] Comment on above: Order Comment: Speci men Type: URINE SPECIMENOrdering Facility: [facility] Address: [address] [place] [address] Performed By: #### 2 4356-8 ####[facility] LABORATORYCLIA [id number] [address] LABCLIA [id number] [place] [address] [place] RBC LM.HPF (Urine sed) [#/Area] 0-3 /HPF Normal 0-3 /HPF [facility] Comment on above: Order Comment: Speci men Type: URINE SPECIMENOrdering Facility: [facility] Address: [address] [place] [address] Performed By: #### 2 4356-8 ####[facility] LABORATORYCLIA [id number] [address] LABCLIA [id number] [place] [address] [place] Specific gravity (U) [Rel density] 1.013 Normal 1.005-1.030 [facility] Comment on above: Order Comment: Speci men Type: URINE SPECIMENOrdering Facility: [facility] Address: [address] [place] [address] Performed By: #### 2 4356-8 ####[facility]ATORYCLIA [id number] [address] LABCLIA [id number] [place] [address] [place] Urobilinogen Ql (U) Normal Normal Normal [facility] Comment on above: Order Comment: Speci men Type: URINE SPECIMENOrdering Facility: [facility] Address: [address] [place] [address] Performed By: #### 2 4356-8 ####[facility]ATORYCLIA [id number] [address] LABCLIA [id number] [place] [address] [place] WBC LM.HPF (Urine sed) [#/Area] 11-25 /HPF Abnormal 0-5 /HPF [facility] Comment on above: Order Comment: Speci men Type: URINE SPECIMENOrdering Facility: [facility] Address: [address] [place] [address] Performed By: #### 2 4356-8 ####[facility]ATORYCLIA [id number] [address] LABCLIA [id number] [place] [address] [place] Urinalysis complete pnl Uron 05-29-2024 Urinalysis complete panel (U) COLOR: Light Yellow CLARITY: Clear GLUCOSE, URINE: Negative BILIRUBIN, URINE: Negative KETONES, URINE: Negative SPECIFIC GRAVITY, UR: 1.013 HEMOGLOBIN/BLOOD, UR: Negative PH, URINE: 6.0 PROTEIN, URINE: Negative UROBILINOGEN: Normal NITRITES: Negative LEUKEST: 500 Frank/uL WBC, URINE: 11-25 /HPF RBC, URINE: 0-3 /HPF BACTERIA: Rare SQUAMOUS EPITHELIAL CELLS: Few ORGANISM ID: 1 10,000 -<50,000 CFU/ml Normal urogenital lily Normal [facility] Comment on above: Order Comment: Speci men Type: URINE SPECIMENOrdering Facility: [facility] Address: [address] [place] [address] Performed By: #### 2 4356-8 ####[facility]ATORYCLIA [id number] [address] LABCLIA [id number] [address] Hip - righton 05-23-2024 [facility] Radiology Study observation (narrative) [facility] CNPNon 05-21-2024 CNPN Telephone (SPNMMN) ----- YANI GERARD ([id number]) 1940 F Date Time Provider Department 05/21/24 MEGAN KIRBY [facility] During your visit today, we recorded the following information about you: Yanni Love RN 05/21/2024 9:53 AM Signed [facility]: 05/17/24 w/ MM NOV: 05/23/24 w/ Adina Lee Plan at [facility]: CT with L3 compression fx. Will check MRI, if acute we may consider referral for vertebroplasty. Will trial lyrica as well. MRI LUMBAR SPINE WO IVCON completed 05/17/24 Message Received: Today Megan Kirby PA-C Gapa, Meenakshi, RN MRI did show acute compression fracture. If they would like I can refer them to a surgeon as discussed at her visit. Called pt and left vm. Also sent msg. Awaiting reply. Yanni Love, SAVITA, RN [place] May 21, 2024 9:53 AM Allergies As of Date: 05/21/2024 Noted Allergy Reaction ROPINIROLE 10/11/2021 14 - Other: See Comments Comments: Other reaction(s): nausea/dizziness, blurry vision [id number] REDUCTASE INHIBIT*04/26/2019 14 - Other: See Comments SULFA (SULFONAMIDE ANTIBIOTICS) 09/15/2005 2 - Rash Date Reviewed: 05/17/2024 Reviewed by: Mariya Roblero - Fully Assessed Prescriptions as of 05/21/2024 - pregabalin (LYRICA) 25 mg capsule Take 1 capsule by mouth two times a day for 90 days. - diclofenac (VOLTAREN ARTHRITIS PAIN) 1 % topical gel Apply 4 g to affected area four times daily. - methocarbamol (ROBAXIN) 750 mg tablet Take 1 tablet by mouth four times a day as needed. - ranolazine SR (RANEXA) 1,000 mg tab ER 12 hr Take 1 tablet by mouth two times a day. - potassium chloride ER (KLOR-CON) 20 mEq tablet Take 1 tablet by mouth once daily. - furosemide (LASIX) 40 mg tablet Take 1 tablet by mouth two times a day. - evolocumab (REPATHA SURECLICK) 140 mg/mL pen injector Inject 140 mg subcutaneously as directed. Inject 1 pen subcu every 2 wks - metoprolol succinate ER (TOPROL XL) 50 mg 24 hr tablet Take 0.5 tablet by mouth once daily. - losartan (COZAAR) 25 mg tablet Take 2 tablets by mouth two times a day. - levothyroxine (SYNTHROID) 50 mcg tablet Take 1 tablet by mouth daily at 6:00 am. Patient should start on December 12, 2023. - INV VITAMIN D3 5000 UNITS CAPSULE (IRB 19-1548) Take 5,000 Units by mouth once daily. For Investigational Drug Use Only. PI: Stevan Lozoya, PhD. Take one capsule by mouth daily for 3 months prior to surgery and 3 months after surgery. - cyanocobalamin (VITAMIN B-12) 1,000 mcg tab Take 1,000 mcg by mouth once daily. - biotin 1 mg cap Take by mouth. - omega 3-nsu-ayx-fish oil 1,000 mg (250 mg-750 mg)/5 mL liqd Take by mouth. - Magnesium 200 mg tab Take 2 tablets by mouth once daily. - aspirin 81 mg chewable tablet Aspirin Active 81 MG PO Daily March 27, 2019 11:00pm - isosorbide mononitrate ER (IMDUR) 30 mg 24 hr tablet Take 1 tablet by mouth once daily. - ezetimibe (ZETIA) 10 mg tablet Take 1 tablet by mouth once daily. - nitroglycerin sublingual (NITROQUICK) 0.3 mg SL tablet Dissolve 1 tablet under the tongue every 5 minutes as needed for chest pain. - kkzuiztfqsk-rujojqslk-uol anter (TRELEGY ELLIPTA) 100-62.5-25 mcg inhalation powder Inhale 1 Puff as instructed as needed. - cholecalciferol, vitamin D3, (VITAMIN D3 ORAL) Take by mouth. - Ascorbic Acid (VITAMIN C) 100 mg tablet Take 100 mg by mouth once daily. - acetaminophen 650 mg CR tablet Take 650 mg by mouth every 8 hours as needed. - pramipexole (MIRAPEX) 0.5 mg tablet Take 0.25 mg by mouth two times a day. 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] 06/11/2014 Preoperative cardiovascular examination [Z01.81*05/27/2015 CAD (coronary artery disease) [I25.10] 05/27/2015 Dizziness [R42] 09/24/2018 05/20/2021 Abnormality of gait [R26.9] 10/03/2018 Benign paroxysmal positional vertigo of right e*10/03/2018 05/20/2021 Clear Outcomes Study, PI: Eva Fischer MD [Z00.6]10/04/2018 Lumbar back pain with radiculopathy affecting l*03/21/2019 05/20/2021 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 [facility] HNO [facility] [id number] Author: ?, ?, ? Service: ? Author Type: ? Type: Allied Health Filed: 05/17/2024 15:50 Note Text: Radiology Service Progress Note PATIENT NAME: Yani Gerard DATE OF SERVICE: May 17, 2024 TIME: 3:49 PM PATIENT IDENTITY VERIFICATION COMPLETED USING TWO (2) IDENTIFIERS: Name and Date of confirmed by patient verbally. FALL SCREENING: Has the patient had 2 falls in the last year or 1 fall with injury or currently using an Ambulatory Assistive Device (Walker, Cane, Wheelchair, Crutches, etc.)? No PATIENT GENDER DATA: Female. status: : No status: NO. PATIENT RELEVANT IMPLANT DATA REVIEWED: Yes PATIENT PRESENTS WITH AN IMPLANTABLE OR ATTACHED MD SENIOR RESEARCH SCIENTIST: No RADIOLOGY DEPARTMENT: MR; Exam(s) Completed: Spine: Lumbar spine PERIPHERAL IV DATA: Not applicable SIGNED BY: Mariya Lynch/Sue Nelson May 17, 2024 3:49 PM Normal [facility] HNO ID: [id number] Author: ?, ?, ? Service: ? Author Type: ? Type: Allied Health Filed: 05/17/2024 15:48 Note Text: Radiology Service Progress Note PATIENT NAME: Yani Gerard DATE OF SERVICE: May 17, 2024 TIME: 3:47 PM PATIENT IDENTITY VERIFICATION COMPLETED USING TWO (2) IDENTIFIERS: Name and Date of confirmed by patient verbally. FALL SCREENING: Has the patient had 2 falls in the last year or 1 fall with injury or currently using an Ambulatory Assistive Device (Walker, Cane, Wheelchair, Crutches, etc.)? No PATIENT GENDER DATA: Male PATIENT RELEVANT IMPLANT DATA REVIEWED: Yes PATIENT PRESENTS WITH AN IMPLANTABLE OR ATTACHED MD SENIOR RESEARCH SCIENTIST: No RADIOLOGY DEPARTMENT: MR; Exam(s) Completed: Spine: Lumbar spine PERIPHERAL IV DATA: Not applicable SIGNED BY: Mariya Lynch/Sue Nune[facility] May 17, 2024 3:47 PM Normal [facility] CNOVon 05-17-2024 CNOV Office Visit (SPMEST ) ----- CINDAYANI CLARKE ([id number]) 1940 F Date Time Provider Department 05/17/24 11:00 AM MEGAN KIRBY SPMEST During your visit today, we recorded the following information about you: Respiration Weight Height 12/minute 73.9 kg 1.549 m Megan Kirby PA-C 05/17/2024 11:36 AM Signed [facility] Low Back Pain - Acute (0 - 6 weeks) Initial Exam SUBJECTIVE HISTORY OF PRESENT ILLNESS: Yani Gerard is a 83 year old female who presents with a chief complaint of low back pain and is seen in consultation requested by Dr. Jayden Burks for an opinion regarding low back. My final recommendations will be communicated back to the requesting physician by way of shared medical record or letter via US mail. Patient is here with low back pain for about 3 weeks without any known injury. Pain will radiate to the anterolateral right leg. Pain is more in the lower back than the leg itself. She feels the pain is constant, worse with movement. Sitting makes the pain worse. Currently on oxicodone, tylenol, and robaxin. No loss of bowel or bladder function. States she does have osteoporosis. Other Issues Addressed at the Visit Today: None. Precipitating Event: None PAIN EVALUATION 05/17/2024 1101 Pain Level: 8 Pain Location: Back-Lower Duration Amount of Time: 6 Duration Units: Weeks Frequency: Continuous YELLOW AND BLUE FLAGS No-Neg Attitude; Back Pain is Disabling No-Avoiding Activity (for Fear of Pain) No-Depression or Anxiety Disorders No-Social Problems No-Substance Use Disorder No-Job Dissatisfaction No-Financial Disincentives Patient Entered Questionnaires PROMIS Score Percentiles 02/29/2024 03/28/2024 Physical Health Physical Function Percentile 31 21* 12/04/2020 10/18/2023 02/29/2024 PROMIS Global Health Scale Physical Health Percentile 22* 78 41 Mental Health Percentile 53 73 34 Percentiles provide an indication of how the patient's score ranks in relation to the general population. Higher percentile rankings indicate better function/quality of life. 50th percentile is the average of the general population and indicates half of respondents had a worse score. Depression Screenin07/16/2020 12/04/2020 PHQ-9 Score 0 0 07/16/2020 12/04/2020 PHQ-9 Self-harm Question Question 9 Not at all Not at all PHQ-9 Self-Harm (Item 9) response options: 0 Not at all 1 Several days 2 More than half the days 3 Nearly every day PHQ-9 Levels: 0-4 No - mild depression 5-9 Mild depression 10-14 Moderate depression 15-19 Moderately severe depression 20-27 Severe depression ACTIVE PROBLEM LIST Actinic Keratosis Other Specified Disease of Sebaceous Glands Htn (Hypertension) Hyperlipidemia Statin Myopathy Preoperative Cardiovascular Examination Cad (Coronary Artery Disease) Abnormality of Gait Clear Outcomes Study, PI: Eva Fischer MD Divergence Insufficiency Paroxysmal Supraventricular Tachycardia (Hcc) Unstable Angina (Hcc) Acquired Hypothyroidism Transient Ischemic Attack Left Hemiparesis (Hcc) Interstitial Lung Disease (Hcc) Pulmonary Hypertension (Hcc) Status Post Coronary Angioplasty Stenosis of Both Vertebral Arteries Stuttering Left Arm Weakness Tremor, Unspecified Bradycardia Atherosclerosis of Aorta (Hcc) PAST MEDICAL HISTORY Diagnosis Date Arthritis Atrial fibrillation (HCC) pafib short lived suspected per apple watch strip, Biotel in place Benign paroxysmal positional vertigo of right ear 10/03/2018 CAD (coronary artery disease) 03/28/2019 LAD proximal stent , RCA nondominant bifurcating severe disease small medical rx Cancer (HCC) Dizziness 09/24/2018 HTN (hypertension) Hypertension Lumbar back pain with radiculopathy affecting left lower extremity 03/21/2019 Pulmonary HTN (HCC) TIA (transient ischemic attack) left leg motion movement and slurred speech PAST SURGICAL HISTORY Procedure Laterality Date CC CORONARY STENT 03/28/2019 LAD prox stent , RCA nondominant bifurcating severe disease small medical rx , [facility] -No restenosis in stent lad mild disease 06/14/23 POST-CATARACT LASER SURGERY Bilateral REMV CATARACT EXTRACAP,INSERT LENS Bilateral 2015 REVISE TOTAL HIP REPLACEMENT Right TOTAL HIP REPLACEMENT Right Social History Tobacco Use Smoking status: Never Smokeless tobacco: Never Vaping Use Vaping Use: Never used Substance Use Topics Alcohol use: Yes Comment: wine occas Drug use: No FAMILY HISTORY Problem Relation Age of Onset Heart Mother heart attack Hypertension Mother Cancer Mother stomach Cancer Sister breast non smoker half sister Heart Maternal Grandmother heart attack Diabetes No Family History Cataract No Family History Glaucoma No Family History Macular Degen No Family History ALLERGIES Allergen Reactions Ropinirole (more content not included)... Normal [facility] CNPHattie 05-17-2024 CNPN Telephone (SPMEST) ----- YANI GERARD ([id number]) 1940 F Date Time Provider Department 05/17/24 MEGAN KIRBY SPMEST During your visit today, we recorded the following information about you: Liss Medina 05/17/2024 12:32 PM [facility]igned [facility]. Because patient is in so much pain, [facility] Kirby's office try to expedite the prior authorization so that the patient can have her MRI sooner than 05/31/24. To expedite the prior authorization Provider Services can be reached at [phone]. Patient's would like to be called back at [phone]. Yanni Love RN 05/17/2024 12:56 PM Signed [facility]: 05/17/24 w/ MM NOV: not yet scheduled Plan at [facility]: CT with L3 compression fx. Will check MRI, if acute we may consider referral for vertebroplasty. Will trial lyrica as well. MRI LUMBAR SPINE WO IVCON scheduled for 05/31/24 [facility] Per referral #[id number], MRI L Spine is showing as authorized. RN confirmed with MRI scheduling team. Fin Services # if needed is [phone]. Pt and updated via and msg. Yanni Love, MSN, RN [place] May 17, 2024 12:46 PM Allergies As of Date: 05/17/2024 Noted Allergy Reaction ROPINIROLE 10/11/2021 14 - Other: See Comments Comments: Other reaction(s): nausea/dizziness, blurry vision [id number] REDUCTASE INHIBIT*04/26/2019 14 - Other: See Comments SULFA (SULFONAMIDE ANTIBIOTICS) 09/15/2005 2 - Rash Date Reviewed: 05/17/2024 Reviewed by: Crow Dove MA - Fully Assessed Reason for Visit: Insurance Authorization [[id number]] Prescriptions as of 05/17/2024 - pregabalin (LYRICA) 25 mg capsule Take 1 capsule by mouth two times a day for 90 days. - diclofenac (VOLTAREN ARTHRITIS PAIN) 1 % topical gel Apply 4 g to affected area four times daily. - methocarbamol (ROBAXIN) 750 mg tablet Take 1 tablet by mouth four times a day as needed. - ranolazine SR (RANEXA) 1,000 mg tab ER 12 hr Take 1 tablet by mouth two times a day. - potassium chloride ER (KLOR-CON) 20 mEq tablet Take 1 tablet by mouth once daily. - furosemide (LASIX) 40 mg tablet Take 1 tablet by mouth two times a day. - evolocumab (REPATHA SURECLICK) 140 mg/mL pen injector Inject 140 mg subcutaneously as directed. Inject 1 pen subcu every 2 wks - metoprolol succinate ER (TOPROL XL) 50 mg 24 hr tablet Take 0.5 tablet by mouth once daily. - losartan (COZAAR) 25 mg tablet Take 2 tablets by mouth two times a day. - levothyroxine (SYNTHROID) 50 mcg tablet Take 1 tablet by mouth daily at 6:00 am. Patient should start on December 12, 2023. - INV VITAMIN D3 5000 UNITS CAPSULE (IRB 19-1548) Take 5,000 Units by mouth once daily. For Investigational Drug Use Only. PI: Stevan Lozoya, PhD. Take one capsule by mouth daily for 3 months prior to surgery and 3 months after surgery. - cyanocobalamin (VITAMIN B-12) 1,000 mcg tab Take 1,000 mcg by mouth once daily. - biotin 1 mg cap Take by mouth. - omega 5-gaj-hbe-fish oil 1,000 mg (250 mg-750 mg)/5 mL liqd Take by mouth. - Magnesium 200 mg tab Take 2 tablets by mouth once daily. - aspirin 81 mg chewable tablet Aspirin Active 81 MG PO Daily March 27, 2019 11:00pm - isosorbide mononitrate ER (IMDUR) 30 mg 24 hr tablet Take 1 tablet by mouth once daily. - ezetimibe (ZETIA) 10 mg tablet Take 1 tablet by mouth once daily. - nitroglycerin sublingual (NITROQUICK) 0.3 mg SL tablet Dissolve 1 tablet under the tongue every 5 minutes as needed for chest pain. - plmjevvppsg-dhhvolddc-xdr anter (TRELEGY ELLIPTA) 100-62.5-25 mcg inhalation powder Inhale 1 Puff as instructed as needed. - cholecalciferol, vitamin D3, (VITAMIN D3 ORAL) Take by mouth. - Ascorbic Acid (VITAMIN C) 100 mg tablet Take 100 mg by mouth once daily. - acetaminophen 650 mg CR tablet Take 650 mg by mouth every 8 hours as needed. - pramipexole (MIRAPEX) 0.5 mg tablet Take 0.25 mg by mouth two times a day. Problem List As Of Date 05/17/2024 Noted Resolved ACTINIC KERATOSIS [L57.0] 07/22/2008 SEBACEOUS GLAND DIS NEC [L73.8] 07/22/2008 HTN (hypertension) [I10] 06/11/2014 Hyperlipidemia [E78.5] 06/11/2014 Statin myopathy (HCC) [G72.0, T46.6X5A] 06/11/2014 Preoperative cardiovascular examination [Z01.81*05/27/2015 CAD (coronary artery disease) [I25.10] 05/27/2015 Dizziness [R42] 09/24/2018 05/20/2021 Abnormality of gait [R26.9] 10/03/2018 Benign paroxysmal positional vertigo of right e*10/03/2018 05/20/2021 Clear Outcomes Study, PI: Eva Fischer MD [Z00.6]10/04/2018 Lumbar back pain with radiculopathy affecting l*03/21/2019 05/20/2021 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 Normal [facility] MRI LUMBAR SPINE WO IVCONon 05-17-2024 MRI LUMBAR SPINE WO IVCON * * *Final Report* * * DATE OF EXAM: May 17 2024 4:09PM LDM 0303 - MRI LUMBAR SPINE WO IVCON / PROCEDURE REASON: Other fracture of unspecified lumbar vertebra, initial encounter for closed frac * * * * Physician Interpretation * * * * EXAMINATION: MRI LUMBAR SPINE WO IVCON CLINICAL HISTORY: Other fracture of unspecified lumbar vertebra, initial encounter for closed fracture (HCC), L3 level, age indeterminant TECHNIQUE: Routine lumbosacral spine MR protocol without gadolinium. MQ: [id number] COMPARISON: 04/30/2024 CT lumbar RESULT: Counting reference: Lumbosacral junction. For the purposes of this report, L4-5 level is at the level iliac crests Localizer images: Unremarkable. Alignment: Moderate degree degenerative levoscoliosis with the apex at the L3 level. Bone marrow signal/fracture: No evidence of pathologic marrow infiltration. Superior endplate concave compression fracture deformity L3 vertebral body with edematous signal intensity changes consistent with subacute phase of fracture. Compared to the previous CT, slight progression of the severity of compression, now 33%. Vertical height at the mid L3 vertebral body level is 1.6 cm compared to previous 1.9 cm. Conus: The conus is within normal limits of signal intensity and morphology. Paraspinal soft tissues: Paraspinal soft tissues are within normal limits. Lower thoracic spine: Visualized lower thoracic canal and foramina are patent. L1-L2: Canal and foramina are patent. L2-L3: Mild degree degenerative bilateral foraminal narrowing secondary mild broad-based disc bulging L3-L4: Mild degree degenerative bilateral foraminal narrowing secondary mild broad-based disc bulging L4-L5: Status post left laminectomy defect. Moderate size central disc protrusion with mass effect on the thecal sac eccentric towards right side. Moderate degree degenerative disc/endplate degenerative changes eccentric towards right side. Moderate degree degenerative bilateral foraminal stenosis. L5-S1: Severe degree of degenerative left foraminal stenosis secondary disc osteophyte complex with compression left L5 exiting nerve sagittal image 14. Mild central canal narrowing eccentric towards the left side secondary to disc osteophyte complex. Sacrum and iliac wings: The visualized sacrum and iliac wings are within normal limits. IMPRESSION: 1. Superior endplate concave compression fracture deformity L3 vertebral body with edematous signal intensity changes consistent with subacute phase of fracture. Compared to the previous CT, slight progression of the severity of compression, now 33%. No associated canal compromise 2. No additional levels of compression fracture. 3.L5-S1: Severe degree of degenerative left foraminal stenosis secondary disc osteophyte complex with compression left L5 exiting nerve sagittal image 14. 4.L4-L5: Status post left laminectomy defect. Moderate size central disc protrusion with mass effect on the thecal sac eccentric towards right side. Moderate degree degenerative disc/endplate degenerative changes eccentric towards right side. Moderate degree degenerative bilateral foraminal stenosis. Anatomic Lumbar Variant: None Epic Chat message was sent to the ordering physician higher level teaching assistant. Pigeon Fancier: PSCB Transcribe Date/Time: May 20 2024 3:23P Dictated by : AMPARO WILLARD MD This examination was interpreted and the report reviewed and electronically signed by: AMPARO WILLARD MD on May 20 2024 3:33PM EST [id number] Normal [facility] CNOVon 05-10-2024 CNOV Office Visit (ORAVON ) ----- YANI GERARD ([id number]) 1940 F Date Time Provider Department 05/10/24 2:00 PM FRANCISCO ARCE During your visit today, we recorded the following information about you: Francisco Arce PA-C 05/10/2024 7:36 PM Signed CONSULT ORTHOPAEDIC: HIP PRIMARY CARE PHYSICIAN: Kyle Amin MD REFERRING PROVIDER: No referring provider defined for this encounter. ASSESSMENT AND PLAN Impression: History of Right Total Hip Replacement, Revision; Right-Sided Low Back Pain Patient is an 83-year-old female with a notable history of CAD, pulmonary hypertension, atrial fibrillation on long-term aspirin and recently discontinued Plavix, and a right total hip arthroplasty at [facility] in 2020 with revision in 2021 reporting to the office today for evaluation of right hip pain. Patient shares that her right hip has been bothersome for the past 2 weeks, notably located to the posterior aspect of the hip. Patient shares that she reported [facility] and was evaluated for right hip pain on 04/18, CRP obtained and was negative. Radiographs revealed an intact right total hip arthroplasty without evidence of loosening or acute abnormality. No fractures appreciated. Patient then reported to the emergency department on 04/30 for evaluation of low back pain. CT lumbar spine and flank obtained, age indeterminant fracture of the L3 vertebral body appreciated as well as multiple levels of degenerative changes. Patient shares that over the course of the past 2 weeks, the pain has migrated from the right hip region to the lower back, notably located to the L3-S1 region. Patient shares that the pain is severe, worsened with lying flat on her back and direct pressure. Patient also notes pain with ambulation. Patient has been taking Tylenol and Motrin for pain relief. Patient denies a specific injury to onset this pain. On exam of the right hip joint, range of motion is unobstructed and nonpainful. Negative JOHNNY/FADIR, negative SLR, negative Stinchfield. On exam of the lower back, patient is point tender to palpation to the L3 spinous process. Painful to palpation to the L3-S1 paraspinal muscles. Pain increased with flexion and lateral flexion of the lumbar spine. Patient denies any saddle anesthesia or incontinence. Patient has a consult visit with a spine provider next week, counseled to continue with this appointment. Patient to take prescribed Robaxin, notably in the evening time, for added relief. Patient to utilize topical Voltaren gel for added relief. Patient to otherwise maintain on her current pain regimen until her spine visit. Patient to follow-up with me as needed as related to her right hip joint. Diagnoses: (T84.84XA, Z96.649) Pain due to total hip replacement, initial encounter ([facility]) ([facility]) (primary encounter diagnosis) (M54.50, G89.29) Chronic right-sided low back pain, unspecified whether sciatica present The patient has been ordered: Office Visit on 05/10/24 diclofenac (VOLTAREN ARTHRITIS PAIN) 1 % topical gel methocarbamol (ROBAXIN) 750 mg tablet No orders placed today. CONSULTS: Patient does not require consults for optimization at this time. Total Joint Arthroplasty: Risk Calculator Yani Gerard has a 25.84% chance of NOT returning home at discharge for a Primary total Hip replacement. Yani's estimated Length of Stay is 2 days (Inpatient candidate). Yani's 30 day chance of readmission is 2.61%. Readmission Probability 2.61 % (within 30 days following surgery) Estimated LOS 2 days Discharge Disposition Probability D/C to Home 74.16 % D/C to SNF 25.84 % These calculations are based on the following factors: - 83 years of age - sex is not male - BMI of 30.8 kg/m2 - NarxCare score of 170 - 3 hospitalizations in the last 12 months - no history of heart disease - no history of diabetes - no history of COPD - no history of anemia - preoperative ambulation: independent community distances - 2 step(s) to enter home - bed location is on the first floor - bath location is on the first floor - caregiver is consistent - home is not more than 150 miles away - PROMIS-10 Mental Health T score 41-49 - Marital status: Risk Factors for Total Knee Arthroplasty (TKA) Major Risk Factors Obesity Moderate Risk High: BMI > 40 Moderate: BMI 30-40 Normal: BMI < 30 Diabetes normal High: A1C > 8 Moderate: A1C 7-8 Normal: A1C < 7 Hx of DVT / PE normal High: dx of DVT / PE Normal: no dx of DVT / PE Smoking normal High: Current smoker Normal: Non smoker Narcotics Use Moderate Risk High:NarxCare >=300 Moderate: 100-299 Normal: 0-99 Depression Unknown Risk High: PHQ-9 >14 Moderate: PHQ-9 5-14 Normal: PHQ-9 < 5 Area Deprivation Index (ADRIAN) Unknown Risk High: ADRIAN Score > 75 Moderate: ADRIAN 50-75 Normal: AD (more content not included)... Normal [facility] Bacteria Ur Culton 4 Bacteria identified Cx Nom (U) ORGANISM ID: 1 10,000 -<50,000 CFU/ml Normal urogenital lily Normal [facility] Comment on above: Performed By: #### 2 4356-8 #### [facility] CLIA [id number] [place] CBC W Auto Differential pane l (Bld)on 04-30-2024 Basophils (Bld) [#/Vol] 10*3/uL Normal <0.11 [facility] Comment on above: Order Comment: Speci men Type: BLOOD SPECIMEN Ordering Facility: [facility] Address: [address] [place] [address] Performed By: #### 5 7021-8 #### [facility] CLIA [id number] [place] Basophils/100 WBC (Bld) 0.3 % Normal [facility] Comment on above: Order Comment: Speci men Type: BLOOD SPECIMEN Ordering Facility: [facility] Address: [address] [place] [address] Performed By: #### 5 7021-8 #### [facility] CLIA [id number] [place] Differential cell count method Nom (Bld) Auto Normal [facility] Comment on above: Order Comment: Speci men Type: BLOOD SPECIMEN Ordering Facility: [facility] Address: [address] [place] [address] Performed By: #### 5 7021-8 #### [facility] CLIA [id number] [address] [place] [address] [place] Eosinophils (Bld) [#/Vol] 0.14 10*3/uL Normal <0.46 [facility] Comment on above: Order Comment: Speci men Type: BLOOD SPECIMEN Ordering Facility: [facility] Address: [address] [place] [address] Performed By: #### 5 7021-8 #### [facility] CLIA [id number] [place] Eosinophils/100 WBC (Bld) 2.2 % Normal [facility] Comment on above: Order Comment: Speci men Type: BLOOD SPECIMEN Ordering Facility: [facility] Address: [address] [place] [address] Performed By: #### 5 7021-8 #### [facility] [place] [id number] [place] Erythrocyte distribution width (RBC) [Ratio] 12.9 % Normal 11.5-15.0 [facility] Comment on above: Order Comment: Speci men Type: BLOOD SPECIMEN Ordering Facility: [facility] Address: [address] [place] [address] Performed By: #### 5 7021-8 #### [facility] [place] [id number] [place] Hematocrit (Bld) [Volume fraction] 42.4 % Normal 36.0-46.0 [facility] Comment on above: Order Comment: Speci men Type: BLOOD SPECIMEN Ordering Facility: [facility] Address: [address] [place] [address] Performed By: #### 5 7021-8 #### [facility] CLIA [id number] [address] [place] [address] [place] Hemoglobin (Bld) [Mass/Vol] 14.2 g/dL Normal 11.5-15.5 [facility] Comment on above: Order Comment: Speci men Type: BLOOD SPECIMEN Ordering Facility: [facility] Address: [address] [place] [address] Performed By: #### 5 7021-8 #### [facility] CLIA [id number] [address] [place] [address] [place] Immature granulocytes (Bld) [#/Vol] 0.03 10*3/uL Normal <0.10 [facility] Comment on above: Order Comment: Speci men Type: BLOOD SPECIMEN Ordering Facility: [facility] Address: [address] [place] [address] Performed By: #### 5 7021-8 #### [facility] CLIA [id number] [address] [place] [address] [place] Immature granulocytes/100 WBC (Bld) 0.5 % Normal [facility] Comment on above: Order Comment: Speci men Type: BLOOD SPECIMEN Ordering Facility: [facility] Address: [address] [place] [address] Performed By: #### 5 7021-8 #### [facility] IA [id number] [address] [place] [address] [place] Lymphocytes (Bld) [#/Vol] 1.09 10*3/uL Normal 1.00-4.00 [facility] Comment on above: Order Comment: Speci men Type: BLOOD SPECIMEN Ordering Facility: [facility] Address: [address] [place] [address] Performed By: #### 5 7021-8 #### [facility] IA [id number] [address] [place] [address] [place] Lymphocytes/100 WBC (Bld) 17.5 % Normal [facility] Comment on above: Order Comment: Speci men Type: BLOOD SPECIMEN Ordering Facility: [facility] Address: [address] [place] [address] Performed By: #### 5 7021-8 #### [facility] IA [id number] [place] [address] [place] MCH (RBC) [Entitic mass] 33.5 pg Normal 26.0-34.0 [facility] Comment on above: Order Comment: Speci men Type: BLOOD SPECIMEN Ordering Facility: [facility] Address: [address] [place] [address] Performed By: #### 5 7021-8 #### [facility] IA [id number] [address] [place] MCHC (RBC) [Mass/Vol] 33.5 g/dL Normal 30.5-36.0 [facility] Comment on above: Order Comment: Speci men Type: BLOOD SPECIMEN Ordering Facility: [facility] Address: [address] [place] [address] Performed By: #### 5 7021-8 #### [facility] [place] [id number] [place] MCV (RBC) [Entitic vol] 100.0 fL Normal 80.0-100.0 [facility] Comment on above: Order Comment: Speci men Type: BLOOD SPECIMEN Ordering Facility: [facility] Address: [address] [place] [address] Performed By: #### 5 7021-8 #### [facility] IA [id number] [place] [address] [place] Monocytes (Bld) [#/Vol] 0.59 10*3/uL Normal <0.87 [facility] Comment on above: Order Comment: Speci men Type: BLOOD SPECIMEN Ordering Facility: [facility] Address: [address] [place] [address] Performed By: #### 5 7021-8 #### [facility] IA [id number] [place] Monocytes/100 WBC (Bld) 9.5 % Normal [facility] Comment on above: Order Comment: Speci men Type: BLOOD SPECIMEN Ordering Facility: [facility] Address: [address] [place] [address] Performed By: #### 5 7021-8 #### [facility] IA [id number] [address] [place] [address] [place] Neutrophils (Bld) [#/Vol] 4.36 10*3/uL Normal 1.45-7.50 [facility] Comment on above: Order Comment: Speci men Type: BLOOD SPECIMEN Ordering Facility: [facility] Address: [address] [place] [address] Performed By: #### 5 7021-8 #### [facility] CLIA [id number] [address] [place], [place] [id number] [place] [address] [place] Neutrophils/100 WBC (Bld) 70.0 % Normal [facility] Comment on above: Order Comment: Speci men Type: BLOOD SPECIMEN Ordering Facility: [facility] Address: [address] [place] [address] Performed By: #### 5 7021-8 #### [facility] CLIA [id number] [address] [place] [address] [place] Nucleated RBC (Bld) [#/Vol] 10*3/uL Normal <0.01 [facility] Comment on above: Order Comment: Speci men Type: BLOOD SPECIMEN Ordering Facility: [facility] Address: [address] [place] [address] Performed By: #### 5 7021-8 #### [facility] IA [id number] [address] Nucleated RBC/100 WBC (Bld) [Ratio] 0.0 /100 WBC Normal [facility] Comment on above: Order Comment: Speci men Type: BLOOD SPECIMEN Ordering Facility: [facility] Address: [address] [place] [address] Performed By: #### 5 7021-8 #### [facility] IA [id number] [address] [place] [address] [place] Platelet mean volume (Bld) [Entitic vol] 10.8 fL Normal 9.0-12.7 [facility] Comment on above: Order Comment: Speci men Type: BLOOD SPECIMEN Ordering Facility: [facility] Address: [address] [place] [address] Performed By: #### 5 7021-8 #### [facility] CLIA [id number] [address] [place] [address] [place] Platelets (Bld) [#/Vol] 240 10*3/uL Normal 150-400 [facility] Comment on above: Order Comment: Speci men Type: BLOOD SPECIMEN Ordering Facility: [facility] Address: [facility] [place] [id number] Performed By: #### 5 7021-8 #### [facility] CLIA [id number] [address] [place] [address] [place] RBC (Bld) [#/Vol] 4.24 10*6/uL Normal 3.90-5.20 [facility] Comment on above: Order Comment: Speci men Type: BLOOD SPECIMEN Ordering Facility: [facility] Address: [address] [place] [address] Performed By: #### 5 7021-8 #### [facility] CLIA [id number] [address] [place] [address] [facility] [place] WBC (Bld) [#/Vol] 6.23 10*3/uL Normal 3.70-11.00 [facility] Comment on above: Order Comment: Speci men Type: BLOOD SPECIMEN Ordering Facility: [facility] Address: [address] [place], [place] [address] Performed By: #### 5 7021-8 #### [facility] CLIA [id number] [address] [place] [address] [facility] [place] CT FLANK WO IVCONon 04-30-[address] FLANK WO IVCON * * *Final Report* * * DATE OF EXAM: Apr 30 2024 5:23PM [facility] 0529 - CT FLANK WO IVCON / PROCEDURE REASON: Flank pain, kidney stone suspected * * * * Physician Interpretation * * * * EXAMINATION: CT FLANK WO IVCON CLINICAL HISTORY: Flank pain, kidney stone suspected TECHNIQUE: Non-contrast imaging of the abdomen and pelvis was performed through the urinary tract. Study performed without intravenous or oral contrast to evaluate for urinary tract calculus. Contrast: IV contrast: None Oral contrast: None CT Radiation dose: Integrated dose-length product (DLP) for this visit = 291 mGy*cm. CT Dose Reduction Employed: Automated exposure control(AEC) and iterative recon COMPARISON: None. RESULT: Limitations: Unenhanced imaging is limited for the evaluation of some renal and other intra-abdominal and pelvic pathology. Urinary tract/related: Suboptimally assessed urinary bladder and distal ureters secondary to regional streak artifact. Right kidney and ureter: No visible hydronephrosis or hydroureter. No visible radiodense calculus. No grossly visible mass. Left kidney and ureter: No visible hydronephrosis or hydroureter. No visible radiodense calculus. No grossly visible mass. Bladder: No visible radiodense calculus. Suggested mild cystocele (reference 602:87; 302:101). Otherwise grossly unremarkable appearance. Suggested asymmetric slight prominence of the left-sided perineural soft tissues/musculature (reference 302:103) may reflect volume averaging, but amenable to clinical exam correlation. Rest of abdomen and Pelvis: Assessment of the other solid abdominal organs show grossly unremarkable appearance of the adrenal glands, liver, spleen (other than lower end of normal size) and pancreas (other than moderate diffuse volume loss/atrophy). A uterus is not visualized. Quite distended, otherwise grossly unremarkable appearance of the gallbladder in this modality. Assessment of the gastrointestinal tract shows no bowel dilation. Colonic diverticulosis, quite extensive in the sigmoid colon, without visible acute inflammatory signs. Suggested mild chronic appearing sigmoid wall thickening that may reflect sequelae of prior inflammation. Some abundance of colonic stool in the right-sided and transverse colon. An unremarkable appendix is suggested (such as reference 302:72). Small hiatal hernia. Limited vascular assessment shows quite extensive arterial wall calcifications/atheroscle rotic changes, including of the non-aneurysmal abdominal aorta. Calcifications also noted in the coronary arteries, mitral and aortic annulus and possibly aortic valve in the thoracic base. Partially imaged, suggested mild cardiomegaly (better assessed with chest x-ray). Maurisio assessment shows no gross lymphadenopathy by imaging size criteria. Subcentimeter in short axis lymph nodes are nonspecific, including multiple in the mesentery (and with nonspecific minimal haziness of the mesenteric fat pad in the left-sided abdomen). Abdominopelvic wall assessment shows no sizable acute abnormality. Osseous assessment shows no gross acute abnormality or aggressive/destructive osseous lesion. Generalized osteopenia. Partially imaged right-sided hip arthroplasty hardware with associated streak artifact and some regional obscuration. No gross acute hardware complication. Arthritic changes (estimated moderate-severe in the LEFT hip, moderate in the sacroiliac joints and moderate-severe pubic symphyseal). Subtle old deformity of the right-sided ischium. Lumbar spine assessment reported earlier/separately, and with reidentified mild superior L3 vertebral body endplate height loss. Lumbar levoscoliosis, probably explaining the asymmetric atrophy of the right-sided iliopsoas musculature. Degenerative spine changes with up to severe neural foraminal stenosis on the LEFT at L5-S1 and estimated up to mild-moderate spinal canal stenosis at L4-L5. The included lung bases show mild streaky and hazy opacities of likely atelectasis and/or scarring, and nonspecific mild mosaic lung attenuation. Boat Hoist Operator Helper (topogram) images: Right-sided hip arthroplasty hardware noted. Non-diagnostic otherwise. IMPRESSION: Noncontrast CT shows no evidence of radiodense nephroureterolithiasis (within constraints of hardware-related streak artifact limitation in the pelvis) or hydroureteronephrosis. Suggested mild cystocele (amenable to clinical exam correlation). Other details above, including some abundance of colonic stool (mostly on the right), colonic diverticulosis (without visible acute inflammatory signs), absent uterus, etc. Pigeon Fancier[facility] Transcribe Date/Time: Apr 30 2024 6:33P Dictated by : DEVON SIU MD This examination was interpreted and the report reviewed and electronically signed by: DEVON SIU MD on Apr 30 2024 6:51PM EST [id number] Normal [facility] CT LUMBAR SPINE W RECON DATA -NBon 04-30-2024 CT LUMBAR SPINE W RECON DATA -NB * * *Final Report* * * DATE OF EXAM: Apr 30 2024 5:23PM [facility] 0481 - CT LUMBAR SPINE W RECON DATA -NB / PROCEDURE REASON: Lumbar radiculopathy, cancer or infection suspected * * * * Physician Interpretation * * * * EXAMINATION: CT LUMBAR SPINE W RECON DATA -NB CLINICAL HISTORY: Lumbar radiculopathy, cancer or infection suspected TECHNIQUE: Spiral, high resolution axial unenhanced images were obtained from the thoracolumbar junction to the sacrum with sagittal and coronal planar reconstructions. MQ: [id number] CT Radiation dose: Integrated Dose-Length Product (DLP) for this visit = 291 mGy*cm. CT Dose Reduction Employed: Automated exposure control(AEC) and iterative recon COMPARISON: None. RESULT: Counting reference: Lumbosacral junction. For the purposes of this report, L4-5 is considered the level of the iliac crest and assume there are 5 lumbar-type vertebrae. Anatomic variant: None. Boat Hoist Operator Helper (topogram) images: Right hip arthroplasty. Alignment: Levoscoliosis is present centered at L3-L4 with approximately 1 cm degenerative left lateral listhesis of L4 on L5 Bone marrow /fracture: No evidence of a lytic or blastic process in the visualized spine. Diffuse osteopenia. Age-indeterminate but favored chronic fracture of the L3 vertebral body with approximately 25% right anterolateral height loss and no osseous retropulsion. Chronic postsurgical changes of L4-L5 and L5-S1 decompressive laminectomy. Paraspinal soft tissues: The paraspinal soft tissues planes are maintained. Lower thoracic spine: The visualized lower thoracic bony canal and foramina are patent. Canal and foramina: No evidence of high-grade degenerative canal stenosis. Likely left lateral recess stenosis at L5-S1 due to a disc protrusion with vacuum disc phenomenon and associated crowding of the descending left S1 nerve roots. Degenerative foraminal stenosis is most pronounced and advanced on the left at L5-S1. Degenerative disc disease is most pronounced and advanced at L4-L5, accentuated by levoscoliosis and left lateral listhesis of L4 on L5. Sacrum and iliac wings: Degenerative changes of the bilateral sacroiliac joints. Additional comments: Calcific atherosclerosis of the abdominal aorta and major branch vessels. Mosaic attenuation pattern of the lung bases compatible with small airways disease and air-trapping. Colonic diverticulosis. Marked asymmetric atrophy of the right iliopsoas. IMPRESSION: Age-indeterminate but favored chronic fracture of the L3 vertebral body with approximately 25% right anterolateral height loss and no osseous retropulsion. No evidence of high-grade degenerative canal stenosis. Degenerative disc disease is most pronounced and advanced at L4-L5, accentuated by levoscoliosis and left lateral listhesis of L4 on L5. Likely left lateral recess stenosis at L5-S1 due to a disc protrusion with vacuum disc phenomenon and associated crowding of the descending left S1 nerve roots. Degenerative foraminal stenosis is most pronounced and advanced on the left at L5-S1. Anatomic Lumbar Variant: None. L4-5 is considered the level of the iliac crest and assume there are 5 lumbar-type vertebrae. Pigeon Fancier: JALEN Transcribe Date/Time: Apr 30 2024 5:45P Dictated by : EZE GARDNER MD This examination was interpreted and the report reviewed and electronically signed by: EZE GARDNER MD on Apr 30 2024 5:53PM EST [id number] Normal [facility] Comprehensive metabolic 2000 panelon 04-30-2024 Albumin [Mass/Vol] 4.5 g/dL Normal 3.9-4.9 [facility] Comment on above: Order Comment: Speci men Type: BLOOD SPECIMEN Ordering Facility: [facility] Address: [address] [place] [address] Performed By: #### 2 4323-8 #### [facility] CLIA [id number] [address] [place] [address] [place] ALP [Catalytic activity/Vol] 109 U/L Normal 34-123 [facility] Comment on above: Order Comment: Speci men Type: BLOOD SPECIMEN Ordering Facility: [facility] Address: [address] [place] [address] Performed By: #### 2 4323-8 #### [facility] CLIA [id number] [address] [place] [address] [place] ALT [Catalytic activity/Vol] 25 U/L Normal 7-38 [facility] Comment on above: Order Comment: Speci men Type: BLOOD SPECIMEN Ordering Facility: [facility] Address: [address] [place] [address] Performed By: #### 2 4323-8 #### [facility] CLIA [id number] [address] [place] [address] [place] Anion gap [Moles/Vol] 10 mmol/L Normal 8-15 [facility] Comment on above: Order Comment: Speci men Type: BLOOD SPECIMEN Ordering Facility: [facility] Address: [address] [place] [address] Performed By: #### 2 4323-8 #### [facility] CLIA [id number] [address] [place] [address] [place] AST [Catalytic activity/Vol] 25 U/L Normal 13-35 [facility] Comment on above: Order Comment: Speci men Type: BLOOD SPECIMEN Ordering Facility: [facility] Address: [address] [place] [address] Performed By: #### 2 4323-8 #### [facility] CLIA [id number] [address] [place] [address] [place] Bilirubin [Mass/Vol] 0.3 mg/dL Normal 0.2-1.3 [facility] Comment on above: Order Comment: Speci men Type: BLOOD SPECIMEN Ordering Facility: [facility] Address: [address] [place] [address] Performed By: #### 2 4323-8 #### [facility] IA [id number] [address] [place] [address] [place] Calcium [Mass/Vol] 9.5 mg/dL Normal 8.5-10.2 [facility] Comment on above: Order Comment: Speci men Type: BLOOD SPECIMEN Ordering Facility: [facility] Address: [address] [place] [address] Performed By: #### 2 4323-8 #### [facility] CLIA [id number] [place] [address] [place] Chloride [Moles/Vol] 97 mmol/L Low 98-107 [facility] Comment on above: Order Comment: Speci men Type: BLOOD SPECIMEN Ordering Facility: [facility] Address: [address] [place] [address] Performed By: #### 2 4323-8 #### [facility] CLIA [id number] [address] [place] [address] [place] CO2 [Moles/Vol] 28 mmol/L Normal 22-30 [facility] Comment on above: Order Comment: Speci men Type: BLOOD SPECIMEN Ordering Facility: [facility] Address: [address] [place] [address] Performed By: #### 2 4323-8 #### [facility] CLIA [id number] [address] [place] [address] [place] Creatinine [Mass/Vol] 0.73 mg/dL Normal 0.58-0.96 [facility] Comment on above: Order Comment: Maycol hdez Type: BLOOD SPECIMEN Ordering Facility: [facility] Address: [address] [place] [address] Performed By: #### 2 4323-8 #### [facility] CLIA [id number] [address] [place] [address] [place] Creatinine and Glomerular filtration rate.predicted panel (S/P/Bld) 82 mL/min/1.73m??? Normal >=60 [facility] Comment on above: Order Comment: Maycol hdez Type: BLOOD SPECIMEN Ordering Facility: [facility] Address: [address] [place] [address] Result Comment: Mallika mated Glomerular Filtration Rate (eGFR) is calculated using the 2020 CKD-EPI creatinine equation. This equation utilizes serum creatinine, sex, and age as parameters. The creatinine assay has traceable calibration to isotope dilution-mass spectrometry. Refer to KDIGO guidelines for clinical interpretation. In patients with unstable renal function, e.g. those with acute kidney injury, the eGFR may not accurately reflect actual GFR. Performed By: #### 2 4323-8 #### [facility] CLIA [id number] [address] [place] [address] [place] Glucose [Mass/Vol] 92 mg/dL Normal 74-99 [facility] Comment on above: Order Comment: Maycol hdez Type: BLOOD SPECIMEN Ordering Facility: [facility] Address: [address] [place] [address] Result Comment: The [place] Diabetes Association (ADA) provides guidance for cutoff values for fasting glucose and random glucose. The ADA defines fasting as no caloric intake for at least 8 hours. Fasting plasma glucose results between 100 to 125 mg/dL indicate increased risk for diabetes (prediabetes). Fasting plasma glucose results greater than or equal to 126 mg/dL meet the criteria for diagnosis of diabetes. In the absence of unequivocal hyperglycemia, results should be confirmed by repeat testing. In a patient with classic symptoms of hyperglycemia or hyperglycemic crisis, random plasma glucose results greater than or equal to 200 mg/dL meet the criteria for diagnosis of diabetes. Reference: Standards of Medical Care in Diabetes 2016, [place] [employer]. Diabetes Care. 2016.39(Suppl 1). Performed By: #### 2 4323-8 #### [facility] CLIA [id number] [address] [place] [address] [place] Potassium [Moles/Vol] 4.2 mmol/L Normal 3.7-5.1 [facility] Comment on above: Order Comment: Speci men Type: BLOOD SPECIMEN Ordering Facility: [facility] Address: [address] [place] [address] Performed By: #### 2 4323-8 #### [facility] CLIA [id number] [address] [place] [address] [place] Protein [Mass/Vol] 7.5 g/dL Normal 6.3-8.0 [facility] Comment on above: Order Comment: Speci men Type: BLOOD SPECIMEN Ordering Facility: [facility] Address: [address] [place] [address] Performed By: #### 2 4323-8 #### [facility] CLIA [id number] [address] [place] [address] [place] Sodium [Moles/Vol] 135 mmol/L Low 136-144 [facility] Comment on above: Order Comment: Speci men Type: BLOOD SPECIMEN Ordering Facility: [facility] Address: [address] [place] [address] Performed By: #### 2 4323-8 #### [facility] CLIA [id number] [address] [place] [address] [place] Urea nitrogen [Mass/Vol] 19 mg/dL Normal 7-21 [facility] Comment on above: Order Comment: Speci men Type: BLOOD SPECIMEN Ordering Facility: [facility] Address: [address] [place] [address] Performed By: #### 2 4323-8 #### [facility] CLIA [id number] [address] [place] [address] [place] ED NOTEon 04-30-2024 ED NOTE HNO ID: [id number] Author: ARANZA AMOR, MATT Service: ? Author Type: Registered Nurse Type: ED Notes Filed: 04/30/2024 19:52 Note Text: Pt provided with discharged instructions. Medications gone over and all questions answered. Pt. Left with steady gait with family for a ride. [facility] ED NOTE HNO ID: [id number] Author: LIBERTAD CASTELLANOS RN Service: ? Author Type: Registered Nurse Type: ED Notes Filed: 04/30/2024 17:19 Note Text: Pt to ct [facility] ED NOTE HNO ID: [id number] Author: STEVAN DOVE, MATT Service: ? Author Type: Registered Nurse Type: ED Notes Filed: 04/30/2024 13:17 Note Text: Pt here with c/o severe lower back pain. Reports pain is across the back, but worse on the R. Denies numbness and tingling. Denies urinary or bowel incontinence. Pt able to ambulate with slow steady gait. States she was seen last week for same pain, had hip xray and has appointment with orthopedics on the , but states pain has significantly worsened. Pt is AxOX4, RR equal and regular. NAD noted. [facility] ED PROV NOTEon 04-30-2024 ED PROV NOTE HNO ID: [id number] Author: BLANCA REYES PA-C Service: Emergency Medicine Author Type: Physician Linoleum Layer Helper Type: ED Provider Notes Filed: 04/30/2024 21:54 Note Text: ED Provider Note Patient Name: Yani Gerard : 1940 SERVICE DATE: 04/30/24 History Patient presents with: Low Back Pain Patient is an 83-year-old female who presents to the ED for evaluation of low back pain that has been worsening over the past week. Patient states that she initially was dealing with right-sided hip pain and followed up with orthopedics who obtained x-ray imaging and started her on low back for 14 days. She states that hip pain has improved but she is now dealing with low back pain. Denies any falls or traumas. Localizes pain to bilateral lower back minimal pain over her right flank. Denies any radiation of pain. States that pain is worsened when she is sitting or lying flat on her back. Pain is actually improved when she is up and walking. She does walk with walker assist. States that she has been taking Tylenol and alternating with Mobic at home but is still having severe pain. States that she had to sleep in a recliner last evening due to pain. She is otherwise denying any fevers, chills, chest pain, shortness of breath, abdominal pain, nausea/vomiting, change in bowel habits, numbness/tingling, loss of bowel or bladder control, extremity weakness, urinary retention, dysuria, urinary frequency/hesitancy or any other complaints. History provided by: Patient field collector used: No PAST MEDICAL HISTORY Diagnosis Date Arthritis Atrial fibrillation (HCC) pafib short lived suspected per apple watch strip, Biotel in place Benign paroxysmal positional vertigo of right ear 10/03/2018 CAD (coronary artery disease) 03/28/2019 LAD proximal stent , RCA nondominant bifurcating severe disease small medical rx Cancer (HCC) Dizziness 09/24/2018 HTN (hypertension) Hypertension Lumbar back pain with radiculopathy affecting left lower extremity 03/21/2019 Pulmonary HTN ([facility]) TIA (transient ischemic attack) left leg motion movement and slurred speech PAST SURGICAL HISTORY Procedure Laterality Date CC CORONARY STENT 03/28/2019 LAD prox stent , RCA nondominant bifurcating severe disease small medical rx , [facility] -No restenosis in stent lad mild disease 06/14/23 POST-CATARACT LASER SURGERY Bilateral REMV CATARACT EXTRACAP,INSERT LENS Bilateral 2015 REVISE TOTAL HIP REPLACEMENT Right TOTAL HIP REPLACEMENT Right FAMILY HISTORY Problem Relation Age of Onset Heart Mother heart attack Hypertension Mother Cancer Mother stomach Cancer Sister breast non smoker half sister Heart Maternal Grandmother heart attack Diabetes No Family History Cataract No Family History Glaucoma No Family History Macular Degen No Family History Social History Tobacco Use Smoking status: Never Smokeless tobacco: Never Vaping Use Vaping Use: Never used Substance and Sexual Activity Alcohol use: Yes Comment: wine occas Drug use: No Sexual activity: Not on file Comment: not asked ALLERGIES Allergen Reactions Ropinirole Other: See Comments Other reaction(s): nausea/dizziness, blurry vision Tjnykfv-Ybl-Yko Red* Other: See Comments Sulfa (Sulfonamide * Rash Review of Systems Constitutional: Negative for chills and fever. Respiratory: Negative for shortness of breath. Cardiovascular: Negative for chest pain and palpitations. Gastrointestinal: Negative for abdominal pain, constipation, diarrhea and vomiting. Genitourinary: Positive for flank pain. Musculoskeletal: Positive for back pain. Neurological: Negative for weakness and numbness. All other systems reviewed and are negative. Physical Exam Vitals [04/30/24 1314] BP Pulse Temp Temp src Resp SpO2 Weight Height 146/59 66 36.6 ?C (97.8 ?F) Oral 18 96 % 73.9 kg (163 lb) 1.549 m (5' 1 ) Physical Exam Vitals and nursing note reviewed. Constitutional: General: She is not in acute distress. Appearance: Normal appearance. She is normal weight. She is not ill-appearing or toxic-appearing. HENT: Head: Normocephalic. Nose: Nose normal. Mouth/Throat: Mouth: Mucous membranes are moist. Pharynx: Oropharynx is clear. Cardiovascular: Rate and Rhythm: Normal rate and regular rhythm. Pulses: Normal pulses. Heart sounds: Normal heart sounds. Pulmonary: Effort: Pulmonary effort is normal. No respiratory distress. Breath sounds: Normal breath sounds. No wheezing, rhonchi or rales. Abdominal: General: Abdomen is flat. Bowel sounds are normal. There is no distension. Palpations: Abdomen is soft. There is no mass. Tenderness: There is no abdominal tenderness. Musculoskeletal: General: Normal range of motion. Back: Comments: No midline cervical, thoracic or lumbar tenderness with palpation. No step-offs or deformities. Patient with diffuse tenderness over ellis (more content not included)... Normal [facility] ED Triage Noteon 04-30-2024 ED Triage Note HNO ID: [id number] Author: REN VALERA DO Service: Emergency Medicine Author Type: Physician Type: ED Triage Notes Filed: 04/30/2024 13:20 Note Text: ED INTAKE NOTE Patient Name: Yani Gerard Service Date: 04/30/24 BRIEF HPI: This is a 83 year old female who presents to the ED with: here for LBP, here one week ago, worse pain,no change in b/b, did xray of right hip 1 week ago but no xray of back, f/u with ortho isnt until May 10. BRIEF EXAM: NAD Awake and Alert Non labored breathing INITIAL WORKUP AND DECISION MAKING: Orders Placed This Encounter XR LUMBAR GENERAL 3V AP/LAT/L5-S1 Provider examination performed via virtual platform with assistance from bedside clinician. SIGNATURE: Ren Valera, DO Normal [facility] Urinalysis complete panel (U )on 04-30-2024 Bacteria LM.HPF (Urine sed) [#/Area] Few Abnormal None Seen [facility] Comment on above: Order Comment: Speci men Type: URINE SPECIMEN Ordering Facility: [facility] Address: [address] [place] [address] Performed By: #### 2 4356-8 #### [facility] CLIA [id number] [address] [place] [address] [place] Bilirubin Ql (U) Negative Normal Negative [facility] Comment on above: Order Comment: Speci men Type: URINE SPECIMEN Ordering Facility: [facility] Address: [address] [place] [address] Performed By: #### 2 4356-8 #### [facility] IA [id number] [address] [place] [address] [place] Clarity (Unsp spec) Clear Normal Clear [facility] Comment on above: Order Comment: Speci men Type: URINE SPECIMEN Ordering Facility: [facility] Address: [address] [place] [address] Performed By: #### 2 4356-8 #### [facility] CLIA [id number] [address] [place] [address] [place] Color (U) Light Yellow Normal yellow [facility] Comment on above: Order Comment: Speci men Type: URINE SPECIMEN Ordering Facility: [facility] Address: [address] [place] [address] Performed By: #### 2 4356-8 #### [facility] CLIA [id number] [address] [place] [address] [place] Glucose Test strip (U) [Mass/Vol] Negative Normal Trace, Negative [facility] Comment on above: Order Comment: Speci men Type: URINE SPECIMEN Ordering Facility: [facility] Address: [address] [place] [address] Performed By: #### 2 4356-8 #### [facility] CLIA [id number] [address] [place] [address] [place] Hemoglobin Ql (U) Negative Normal Negative, Trace [facility] Comment on above: Order Comment: Speci men Type: URINE SPECIMEN Ordering Facility: [facility] Address: [address] [place] [address] Performed By: #### 2 4356-8 #### [facility] CLIA [id number] [address] [place] [address] [place] Hyaline casts (Urine sed) [#/Area] 1-3 /LPF Abnormal 0 /LPF [facility] Comment on above: Order Comment: Speci men Type: URINE SPECIMEN Ordering Facility: [facility] Address: [address] [place] [address] Performed By: #### 2 4356-8 #### [facility] IA [id number] [address] [place] [address] [place] Ketones Ql (U) Negative Normal Negative, Trace [facility] Comment on above: Order Comment: Speci men Type: URINE SPECIMEN Ordering Facility: [facility] Address: [address] [place] [address] Performed By: #### 2 4356-8 #### [facility] IA [id number] [address] [place] [address] [place] Leukocyte esterase Test strip Ql (U) 75 Frank/uL Abnormal Negative, 25 Frank/uL [facility] Comment on above: Order Comment: Speci men Type: URINE SPECIMEN Ordering Facility: [facility] Address: [address] [place] [address] Performed By: #### 2 4356-8 #### [facility] CLIA [id number] [address] [place] [address] [place] Nitrite Ql (U) Negative Normal Negative [facility] Comment on above: Order Comment: Speci men Type: URINE SPECIMEN Ordering Facility: [facility] Address: [address] [place] [address] Performed By: #### 2 4356-8 #### [facility] IA [id number] [address] [place] [address] [place] [address] [place] pH (U) 6.5 [pH] Normal 5.0-8.0 [facility] Comment on above: Order Comment: Speci men Type: URINE SPECIMEN Ordering Facility: [facility] Address: [address] [place] [address] Performed By: #### 2 4356-8 #### [facility] [id number] [address] [place] [address] [place] Protein (U) [Mass/Vol] Negative Normal Trace , Negative [facility] Comment on above: Order Comment: Speci men Type: URINE SPECIMEN Ordering Facility: [facility] Address: [address] [place] [address] Performed By: #### 2 4356-8 #### [facility] [id number] [address] [place] [address] [place] RBC LM.HPF (Urine sed) [#/Area] 0-3 /HPF Normal 0-3 /HPF [facility] Comment on above: Order Comment: Speci men Type: URINE SPECIMEN Ordering Facility: [facility] Address: [address] [place] [address] Performed By: #### 2 4356-8 #### [facility] [id number] [address] [place] [address] [facility] [place] Specific gravity (U) [Rel density] 1.012 Normal 1.005-1.030 [facility] Comment on above: Order Comment: Speci men Type: URINE SPECIMEN Ordering Facility: [facility] Address: [address] [place] [address] Performed By: #### 2 4356-8 #### [facility] [id number] [address] [place] [address] [place] Urobilinogen Ql (U) Normal Normal Normal [facility] Comment on above: Order Comment: Speci men Type: URINE SPECIMEN Ordering Facility: [facility] Address: [address] [place] [address] Performed By: #### 2 4356-8 #### [facility] CLIA [id number] [address] [facility] [place] [address] [place] WBC LM.HPF (Urine sed) [#/Area] 6-10 /HPF Abnormal 0-5 /HPF [facility] Comment on above: Order Comment: Speci men Type: URINE SPECIMEN Ordering Facility: [facility] Address: [facility] [place] [address] Performed By: #### 2 4356-8 #### [facility] CLIA [id number] [address] [facility] [place] [address] [place] XR LUMBAR 3V AP/LAT/L5-S1on 04-30-2024 XR LUMBAR 3V AP/LAT/L5-S1 * * *Final Report* * * DATE OF EXAM: Apr 30 2024 1:40PM VHX [id number] - XR LUMBAR 3V AP/LAT/L5-S1 / PROCEDURE REASON: Back pain * * * * Physician Interpretation * * * * EXAM: XR LUMBAR 3V AP/LAT/L5-S1 CLINICAL INFORMATION ( PROVIDED BY ORDERING CLINICIAN) : Back pain COMPARISON: 04/18/2024 FINDINGS: See impression. IMPRESSION: Bones are demineralized, limiting evaluation. Degenerative changes within the lower lumbar spine again noted. Vertebral body height appears generally maintained. Degenerative changes noted throughout the lumbar posterior elements. Mild convex LEFT lower lumbar spinal curvature. Atherosclerotic calcification. If there is concern for occult fracture, CT is recommended. Pigeon Fancier: PSCB Transcribe Date/Time: Apr 30 2024 2:37P Dictated by : MEGAN MUELLER MD This examination was interpreted and the report reviewed and electronically signed by: MEGAN MUELLER MD on Apr 30 2024 2:39PM EST [id number] Normal [facility] CNPHattie 04-29-2024 CNPN Telephone ([facility]) ----- YANI GERARD ([id number]) 1940 F Date Time Provider Department 04/29/24 JAYDEN BURKS [facility] During your visit today, we recorded the following information about you: Melony Ochoa 04/29/2024 1:06 PM Signed Pt Sp phoned regarding Pt back pain. Pt having extreme back pain in lower back. Pt having extreme difficulty standing, moving. Asking for sooner appt. Please call and advise. Pt phone # [phone] Flaquita Tomlinson RN 04/29/2024 1:11 PM Signed Forwarded to provider. Jayden Burks MD 04/29/2024 7:40 PM Signed Noted and appreciated. Order filed. MD Vamshi Sotomayor Katarina 04/30/2024 8:13 AM Signed Patient's Ines called back today stating last night was the night from hel for Yani. She was crying from pain and could barely move . Per , her pain is in the lower spine. Please call patient to advise, he really wants to speak with someone today. . Flaquita Tomlinson RN 04/30/2024 8:47 AM Signed Lm for to call office back. Dr. Burks has placed a consult for spine medicine. Flaquita Tomlinson RN 04/30/2024 11:11 AM Signed I spoke to patient advised of consult to spine medicine. Patient states that her pain is so severe, she does not know if she can wait for an appointment and may just go to an ER. She is aware our schedulers will contact her for appointment with spine medicine. Jonna Donaldson 05/20/2024 10:27 AM Signed Patient's spouse Ines called today stating his mom is having severe lumbar pain, she is in agony and he doesn't know what to do. They would like to get guidance from Dr Burks stating he knows Hector very well. Her pain is the worst when she tries to lie down, she has to sleep in a chair. She has been to the ED, and on Monday saw Megan Kirby in Spine, he states they did not have a good experience. He prescribed Lyrica, but it made her very ill. They also drove an hour to [place] for an MRI on Monday, so they could get in carol. Per spouse, Hector is living on Tylenol, which doesn't help much. Please call Ines to advise at [phone] Chrystal Gómez RN 05/21/2024 8:58 AM Addendum Spoke with patient with spouse also on the phone. States the following: - they had recent appointment with spine PA and were not satisfied. They have another appointment with spine med on 05/23. - currently pain continues at 08/08. - states has been ordered Oxydodone every 4 hours; tylenol 650 mg along with the Oxycodone; Methylcarbamol every 6 hours. - states that she is having such a difficult time with the pain and not sure what to do MRI Lumbar spine completed on 05/17 and per chart is now in process. Informed patient and spouse that given the above information that she should be seen in the ED for evaluation. States that they will think about it but wanted to be aware. Routed to provider for review. Jayden Burks MD 05/20/2024 5:49 PM Signed Noted and appreciated. Jayden Burks MD Allergies As of Date: 04/29/2024 Noted Allergy Reaction ROPINIROLE 10/11/2021 14 - Other: See Comments Comments: Other reaction(s): nausea/dizziness, blurry vision [id number]-[id number]-JGV REDUCTASE INHIBIT*04/26/2019 14 - Other: See Comments SULFA (SULFONAMIDE ANTIBIOTICS) 09/15/2005 2 - Rash Date Reviewed: 04/08/2024 Reviewed by: Nikolas Waters MA - Fully Assessed Reason for Visit: Patient Question [6517] Appointment [186] Primary Visit Diagnosis:Chronic bilateral low back pain without sciatica [M54.50, G89.29] Order(s):CONSULT TO [facility] [20000129] Order #: [id number]: 1 FUTURE Prescriptions as of 05/22/2024 - pregabalin (LYRICA) 25 mg capsule Take 1 capsule by mouth two times a day for 90 days. - diclofenac (VOLTAREN ARTHRITIS PAIN) 1 % topical gel Apply 4 g to affected area four times daily. - methocarbamol (ROBAXIN) 750 mg tablet Take 1 tablet by mouth four times a day as needed. - ranolazine SR (RANEXA) 1,000 mg tab ER 12 hr Take 1 tablet by mouth two times a day. - potassium chloride ER (KLOR-CON) 20 mEq tablet Take 1 tablet by mouth once daily. - furosemide (LASIX) 40 mg tablet Take 1 tablet by mouth two times a day. - evolocumab (REPATHA SURECLICK) 140 mg/mL pen injector Inject 140 mg subcutaneously as directed. Inject 1 pen subcu every 2 wks - metoprolol succinate ER (TOPROL XL) 50 mg 24 hr tablet Take 0.5 tablet by mouth once daily. - losartan (COZAAR) 25 mg tablet Take 2 tablets by mouth two times a day. - levothyroxine (SYNTHROID) 50 mcg tablet Take 1 tablet by mouth daily at 6:00 am. Patient should start on December 12, 2023. - INV VITAMIN D3 5000 UNITS CAPSULE (IRB 19-1548) Take 5,000 Units by mouth once daily. For Investigational Drug Use Only. PI: Stevan Lozoya, PhD. Take one capsule by mouth daily for 3 months prior (more content not included)... Normal [facility] C-REACTIVE PROTEINon 024 CRP [Mass/Vol] mg/dL NINF - 0.9 mg/dL [facility] CNOVon 04-18-2024 CNOV Office Visit (ORAVON ) ----- YANI GERARD ([id number]) 1940 F Date Time Provider Department 04/18/24 5:05 PM FRAN RACHEL During your visit today, we recorded the following information about you: Fran Rachel PA-C 04/18/2024 5:26 PM Signed [facility] CHIEF COMPLAINT(CC): Right hip pain HISTORY OF PRESENT ILLNESS (HPI): PAIN EVALUATION 04/18/2024 1621 Pain Level: 7 Pain Location: Hip-Right Description: Sore;Sharp;Dull Duration Amount of Time: 2 Duration Units: Weeks Frequency: Intermittent Intervention/Comfort measure: Reposition;Relaxation 83-year-old female with 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 She denies injury, fever, chills, popping, catching, numbness or tingling. She states the pain is exacerbated with standing and relieved while at rest. Has taken Advil for symptom control with minimal relief. REVIEW OF SYMPTOMS (ROS): Constitutional: Any recent fevers? No Cardiovascular: Any chest pain? No Respiratory: Any shortness or breath? No Gastrointestinal: Any abdominal discomfort? No Integumentary: Any recent skin changes or rashes? No Neurologic: Any numbness or tingling? See Above Endocrine: Any diagnosis of diabetes? No Hematologic: Any recent bleeding episodes? No MEDICAL HISTORY: PAST MEDICAL HISTORY Diagnosis Date Arthritis Atrial fibrillation (HCC) pafib short lived suspected per [employer] watch strip, Biotel in place Benign paroxysmal positional vertigo of right ear 10/03/2018 CAD (coronary artery disease) 03/28/2019 LAD proximal stent , RCA nondominant bifurcating severe disease small medical rx Cancer (HCC) Dizziness 09/24/2018 HTN (hypertension) Hypertension Lumbar back pain with radiculopathy affecting left lower extremity 03/21/2019 Pulmonary HTN (HCC) TIA (transient ischemic attack) left leg motion movement and slurred speech PHYSICAL EXAMINATION: Patient's vitals and nursing notes were reviewed. Vitals: There were no vitals taken for this visit. Skin: Skin color, texture, turgor normal, no suspicious rashes or lesions noted Psychiatric: mood and affect are appropriate, patient is oriented to time, place and person General Appearance: Well appearing, alert, in no acute distress, well-hydrated, and well nourished Cardiovascular: pedal pulses and radial pulses normal, no signs of upper or lower extremity edema Respiratory: no respiratory distress, no audible wheezing, no labored breathing, symmetric thoracic excursion Neurologic: bilateral deep tendon reflexes are normal and symmetric with no pathologic reflexes, sensation is grossly intact Lymphatic: no lymph node enlargement noted in the examined area Musculoskeletal Examination: ROM: full range of motion noted Muscle Strength: PSOAS (L2,3): 5/5 Gluteus (L5,S1,2): 5/5 Quadriceps (L3,4): 5/5 Adductor: 5/5 Gluteal: 5/5 Neurologic: Sensation: L2-S1 symmetrically normal, Heel walk: normal Toe walk: normal Special Tests: Straight Leg Raise (SLR): negative bilaterally JOHNNY Test: positive on the right FADIR Test::positive on the right Log Roll: negative bilaterally IMAGING: Final results and radiologist's interpretation, available in the [facility] health record. Images were reviewed with the patient/family members in the office today. My personal interpretation of the performed imaging is no acute abnormality. ASSESSMENT: Pain in right hip Chronic hip pain after total replacement of right hip joint (primary encounter diagnosis) PLAN: Upon review of the patient's x-rays her implant appears stable. However, on exam she does have positive JOHNNY and FADIR eliciting pain in the groin region. I have ordered a C-reactive protein to help further delineate underlying pathology. She reports she is no longer on Plavix, so we will do a short course of Mobic x 14 days to help with pain and inflammation. Discussed the risk and benefits of general NSAIDs, as well as side effect profile, and will begin trial of Mobic. We will continue to monitor the need for further usage, and/or need for discontinuation. Patient will be scheduled for a right total joint replacement provider for further evaluation and treatment. Detailed instructions were reviewed with the patient and all questions were answered in detail. Patient voiced understanding and compliance with the above plan. We discussed emergent need to return to the express care or go to the emergency department. We discussed red flags associated with this condition and emergent treatment if they present. SHANNAN Barrera Mitchell, PA-C 04/18/2024 5:12 PM Signed Gentle range of motion and stretching as tolerated. Rest and relax as much as possible for next 5 to 7 days. Ta (more content not included)... Normal [facility] CRP [facility] 04[facility]18-2024 CRP [Mass/Vol] mg/L Normal <0.9 [facility] Comment on above: Order Comment: Speci men Type: BLOOD SPECIMEN Ordering Facility: [facility] Address: [address] [place], [place] [address]Val MAT[place], [place] [id number] Performed By: #### [id number] [phone] #### [facility] CLIA [id number] [facility] [place] [address] [place] CRP [Mass/Vol]on 04-18-2024 Interpretation and review of laboratory results Normal [facility] XR HIP 3V PELV+ AP/LAT RTon 04-18-2024 XR HIP 3V PELV+ AP/LAT RT * * *Final Report* * * DATE OF EXAM: Apr 18 2024 4:45PM AFR [id number] - XR HIP 3V PELV+ AP/LAT RT / PROCEDURE REASON: Pain * * * * Physician Interpretation * * * * EXAMINATION: XR HIP 3V PELV+ AP/LAT RT HISTORY: RIGHT GROIN PAIN Pain . TECHNIQUE: XR HIP 3V PELV+ AP/LAT RT Laterality: RIGHT Number of different views (projections): 3 M: XB_1 COMPARISON: 09/17/2020 RESULT: Right total hip arthroplasty now in place appears intact and without loosening. Remote appearing inferior right pubic ramus fracture. There are moderate left hip degenerative changes. Lower lumbar degenerative disc changes. Osteopenia. No acute fracture or dislocation. There are no bony erosions. IMPRESSION: Intact right hip arthroplasty. Pigeon Fancier: JALEN Transcribe Date/Time: Apr 18 2024 4:46P Dictated by : MEGAN DOMINGO MD This examination was interpreted and the report reviewed and electronically signed by: MEGAN DOMINOG MD on Apr 18 2024 4:47PM EST [id number] Normal [facility] XR Pelvis and Hip - right AP and Lateral frogon 04-18-2024 IMPRESSION: Intact right hip arthroplasty. Pigeon Fancier: PSCB Transcribe Date/Time: Apr 18 2024 4:46P Dictated by : MEGAN DOMINGO MD This examination was interpreted and the report reviewed and electronically signed by: MEGAN DOMINGO MD on Apr 18 2024 4:47PM EST DIVISION OF RADIOLOGY * * *Final Report* * * DATE OF EXAM: Apr 18 2024 4:45PM AFR [id number] - XR HIP 3V PELV+ AP/LAT RT / PROCEDURE REASON: Pain * * * * Physician Interpretation * * * * EXAMINATION: XR HIP 3V PELV+ AP/LAT RT HISTORY: RIGHT GROIN PAIN Pain . TECHNIQUE: XR HIP 3V PELV+ AP/LAT RT Laterality: RIGHT Number of different views (projections): 3 M: XB_1 COMPARISON: 09/17/2020 RESULT: Right total hip arthroplasty now in place appears intact and without loosening. Remote appearing inferior right pubic ramus fracture. There are moderate left hip degenerative changes. Lower lumbar degenerative disc changes. Osteopenia. No acute fracture or dislocation. There are no bony erosions. DIVISION OF RADIOLOGY Provider, Delores Estevez [place] - 04/18/2024 * * *Final Report* * * DATE OF EXAM: Apr 18 2024 4:45PM AFR [id number] - XR HIP 3V PELV+ AP/LAT RT / PROCEDURE REASON: Pain * * * * Physician Interpretation * * * * EXAMINATION: XR HIP 3V PELV+ AP/LAT RT HISTORY: RIGHT GROIN PAIN Pain . TECHNIQUE: XR HIP 3V PELV+ AP/LAT RT Laterality: RIGHT Number of different views (projections): 3 M: XB_1 COMPARISON: 09/17/2020 RESULT: Right total hip arthroplasty now in place appears intact and without loosening. Remote appearing inferior right pubic ramus fracture. There are moderate left hip degenerative changes. Lower lumbar degenerative disc changes. Osteopenia. No acute fracture or dislocation. There are no bony erosions. IMPRESSION IMPRESSION: Intact right hip arthroplasty. P[employer] Fancier: JALEN Transcribe Date/Time: Apr 18 2024 4:46P Dictated by : MEGAN DOMINGO MD This examination was interpreted and the report reviewed and electronically signed by: MEGAN DOMINGO MD on Apr 18 2024 4:47PM [facility] Radiology Study observation (narrative) [facility] XR Pelvis and Hip - right AP and Lateral frogOrdered By: [facility] Provider on 04-18-2024 [facility] CNTHERAPYon 04-17-2024 CNTHERAPY OT/PT/Speech Visit (PTAF) ----- YANI GERARD ([id number]) 1940 F Date Time Provider Department 04/17/24 10:15 AM BEENA GALLARDO [facility] Date Time Provider Department Center 04/17/2024 10:15 AM [id number], KARA [facility] Reason for Visit: Physical Therapy [503] Primary Visit Diagnosis:Dizziness [R42] Other Visit Diagnoses:Balance problem [R26.89] Vertigo [R42] Allergies As of Date: 04/17/2024 Noted Allergy Reaction ROPINIROLE 10/11/2021 14 - Other: See Comments Comments: Other reaction(s): nausea/dizziness, blurry vision [id number]-CIC-XPF REDUCTASE INHIBIT*04/26/2019 14 - Other: See Comments SULFA (SULFONAMIDE ANTIBIOTICS) 09/15/2005 2 - Rash Date Reviewed: 04/08/2024 Reviewed by: Nikolas Waters MA - Fully Assessed Prescriptions as of 04/17/2024 - ranolazine SR (RANEXA) 1,000 mg tab ER 12 hr Take 1 tablet by mouth two times a day. - potassium chloride ER (KLOR-CON) 20 mEq tablet Take 1 tablet by mouth once daily. - furosemide (LASIX) 40 mg tablet Take 1 tablet by mouth two times a day. - evolocumab (REPATHA SURECLICK) 140 mg/mL pen injector Inject 140 mg subcutaneously as directed. Inject 1 pen subcu every 2 wks - metoprolol succinate ER (TOPROL XL) 50 mg 24 hr tablet Take 0.5 tablet by mouth once daily. - losartan (COZAAR) 25 mg tablet Take 2 tablets by mouth two times a day. - levothyroxine (SYNTHROID) 50 mcg tablet Take 1 tablet by mouth daily at 6:00 am. Patient should start on December 12, 2023. - INV VITAMIN D3 5000 UNITS CAPSULE (IRB 19-1548) Take 5,000 Units by mouth once daily. For Investigational Drug Use Only. PI: Stevan Lozoya, PhD. Take one capsule by mouth daily for 3 months prior to surgery and 3 months after surgery. - cyanocobalamin (VITAMIN B-12) 1,000 mcg tab Take 1,000 mcg by mouth once daily. - biotin 1 mg cap Take by mouth. - omega 3-zsw-efm-fish oil 1,000 mg (250 mg-750 mg)/5 mL liqd Take by mouth. - clopidogrel (PLAVIX) 75 mg tablet Take 75 mg by mouth once daily. - Magnesium 200 mg tab Take 2 tablets by mouth once daily. - aspirin 81 mg chewable tablet Aspirin Active 81 MG PO Daily March 27, 2019 11:00pm - isosorbide mononitrate ER (IMDUR) 30 mg 24 hr tablet Take 1 tablet by mouth once daily. - ezetimibe (ZETIA) 10 mg tablet Take 1 tablet by mouth once daily. - nitroglycerin sublingual (NITROQUICK) 0.3 mg SL tablet Dissolve 1 tablet under the tongue every 5 minutes as needed for chest pain. - qflrcradgnq-favbnwbrs-roi anter (TRELEGY ELLIPTA) 100-62.5-25 mcg inhalation powder Inhale 1 Puff as instructed as needed. - cholecalciferol, vitamin D3, (VITAMIN D3 ORAL) Take by mouth. - Ascorbic Acid (VITAMIN C) 100 mg tablet Take 100 mg by mouth once daily. - acetaminophen 650 mg CR tablet Take 650 mg by mouth every 8 hours as needed. - pramipexole (MIRAPEX) 0.5 mg tablet Take 0.25 mg by mouth two times a day. ----- [facility] 04-11-2024 CHERIEN Telephone (ORTEGA) ----- YANI GERARD ([id number]) 1940 Date Time Provider Department 04/11/24 FIONA HARKINS During your visit today, we recorded the following information about you: Romina Salazar 04/11/2024 12:23 PM Signed Patient states she is not feeling well and wants to check how much of the Losartan and Lasix she should be taking. Call her @ [phone] - ok to leave a message. Joel Garcia RN 04/11/2024 2:09 PM Signed - Continue furosemide 40 mg BID, metoprolol succinate 25 mg daily, plavix 75 mg daily, asa 81 mg daily, isosorbide mononitrate 30 mg daily, Repatha 140mg q 2 weeks, zetia 10 mg daily, ranolazine 1000 mg BID. - Can trial discontinuing amlodipine. Monitor BP at home. - Schedule with Joel Mondragon, MATT 04/11/2024 2:09 PM Signed Patient has not felt good for over a week. Feels like she's not herself She thinks the 40mg of lasix twice a day is too much, she's has dry mouth and overall not feeling well. She would like to go back to the 40mg a day which was doubled recently (03/05) due to weight gain, SOB, and BLE swelling. When she saw Radha- she felt okay, thought she had a bug. Was concerned that she was taking too much losartan, which isn't mentioned in her note. She takes 50mg BID prescribed by her PCP - asked her to speak to him if we are unable to get back to her. 121/76 BP (with 50mg losartan AND other medications discussed in note) Joel Garcia RN 04/12/2024 9:07 AM Signed Allergies As of Date: 04/11/2024 Noted Allergy Reaction ROPINIROLE 10/11/2021 14 - Other: See Comments Comments: Other reaction(s): nausea/dizziness, blurry vision HLGBKYA-[id number]-[id number] REDUCTASE INHIBIT*04/26/2019 14 - Other: See Comments SULFA (SULFONAMIDE ANTIBIOTICS) 09/15/2005 2 - Rash Date Reviewed: 04/08/2024 Reviewed by: Nikolas Waters MA - Fully Assessed Prescriptions as of 04/12/2024 - ranolazine SR (RANEXA) 1,000 mg tab ER 12 hr Take 1 tablet by mouth two times a day. - potassium chloride ER (KLOR-CON) 20 mEq tablet Take 1 tablet by mouth once daily. - furosemide (LASIX) 40 mg tablet Take 1 tablet by mouth two times a day. - evolocumab (REPATHA SURECLICK) 140 mg/mL pen injector Inject 140 mg subcutaneously as directed. Inject 1 pen subcu every 2 wks - metoprolol succinate ER (TOPROL XL) 50 mg 24 hr tablet Take 0.5 tablet by mouth once daily. - losartan (COZAAR) 25 mg tablet Take 2 tablets by mouth two times a day. - levothyroxine (SYNTHROID) 50 mcg tablet Take 1 tablet by mouth daily at 6:00 am. Patient should start on December 12, 2023. - INV VITAMIN D3 5000 UNITS CAPSULE (IRB 19-1548) Take 5,000 Units by mouth once daily. For Investigational Drug Use Only. PI: Stevan Lozoya, PhD. Take one capsule by mouth daily for 3 months prior to surgery and 3 months after surgery. - cyanocobalamin (VITAMIN B-12) 1,000 mcg tab Take 1,000 mcg by mouth once daily. - biotin 1 mg cap Take by mouth. - omega 9-qyb-uor-fish oil 1,000 mg (250 mg-750 mg)/5 mL liqd Take by mouth. - clopidogrel (PLAVIX) 75 mg tablet Take 75 mg by mouth once daily. - Magnesium 200 mg tab Take 2 tablets by mouth once daily. - aspirin 81 mg chewable tablet Aspirin Active 81 MG PO Daily March 27, 2019 11:00pm - isosorbide mononitrate ER (IMDUR) 30 mg 24 hr tablet Take 1 tablet by mouth once daily. - ezetimibe (ZETIA) 10 mg tablet Take 1 tablet by mouth once daily. - nitroglycerin sublingual (NITROQUICK) 0.3 mg SL tablet Dissolve 1 tablet under the tongue every 5 minutes as needed for chest pain. - brkzwmaubnh-yhjnmxzdq-qec anter (TRELEGY ELLIPTA) 100-62.5-25 mcg inhalation powder Inhale 1 Puff as instructed as needed. - cholecalciferol, vitamin D3, (VITAMIN D3 ORAL) Take by mouth. - Ascorbic Acid (VITAMIN C) 100 mg tablet Take 100 mg by mouth once daily. - acetaminophen 650 mg CR tablet Take 650 mg by mouth every 8 hours as needed. - pramipexole (MIRAPEX) 0.5 mg tablet Take 0.25 mg by mouth two times a day. Problem List As Of Date 04/11/2024 Noted Resolved ACTINIC KERATOSIS [L57.0] 07/22/2008 SEBACEOUS GLAND DIS NEC [L73.8] 07/22/2008 HTN (hypertension) [I10] 06/11/2014 Hyperlipidemia [E78.5] 06/11/2014 Statin myopathy (HCC) [G72.0, T46.6X5A] 06/11/2014 Preoperative cardiovascular examination [Z01.81*05/27/2015 CAD (coronary artery disease) [I25.10] 05/27/2015 Dizziness [R42] 09/24/2018 05/20/2021 Abnormality of gait [R26.9] 10/03/2018 Benign paroxysmal positional vertigo of right e*10/03/2018 05/20/2021 Clear Outcomes Study, PI: Eva Fischer MD [Z00.6]10/04/2018 Lumbar back pain with radiculopathy affecting l*03/21/2019 05/20/2021 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 Normal [facility] CNOVon 04-08-2024 CNOV Office Visit (ANTONETTEFV ) ----- YANI GERARD ([id number]) 1940 F Date Time Provider Department 04/08/24 11:30 AM RADHA ZARAGOZA During your visit today, we recorded the following information about you: Pulse Blood pressure Weight Height 67/minute 121/73 74 kg 1.549 m Radha Zaragoza APRN.[employer] 04/08/2024 1:08 PM Signed [facility] Department of Cardiovascular Medicine SECTION OF CLINICAL CARDIOLOGY OUTPATIENT VISIT DATE April 08, 2024 OUTPATIENT VISIT TYPE ESTABLISHED PRIMARY CARE PHYSICIAN: Kyle Amin [address] [place] [address] REFERRING PHYSICIAN: No referring provider defined for this encounter. CHIEF COMPLAINT: Follow Up HISTORY OF PRESENT ILLNESS: Ms. Gerard is a 83 year old female who presents today for a cardiovascular medicine follow-up visit. PMHx of PMHx of TIA, vertebral artery stenosis, CAD s/p ELIS- LAD ([facility] 05/2023 showed no ISR, non obstructive 50% LAD stenosis, 80% stenosis in non dominant RCA), HTN, HLD. [facility]YANT 02/12/24 at which time she was started on furosemide daily for leg swelling. This has been increased now to 40 mg BID. Follow up labs showed stable renal function. Recent stress test was normal. The leg swelling has improved. Patient denies chest pain, shortness of breath, cough, wheezing, swelling, orthopnea, pnd, lightheadedness or syncope. She denies chest pain, shortness of breath, orthopnea, cough, edema, palpitations, PND, lightheadedness or syncope. PAST MEDICAL HISTORY Diagnosis Date Arthritis Atrial fibrillation (HCC) pafib short lived suspected per [employer] watch strip, Biotel in place Benign paroxysmal positional vertigo of right ear 10/03/2018 CAD (coronary artery disease) 03/28/2019 LAD proximal stent , RCA nondominant bifurcating severe disease small medical rx Cancer (HCC) Dizziness 09/24/2018 HTN (hypertension) Hypertension Lumbar back pain with radiculopathy affecting left lower extremity 03/21/2019 Pulmonary HTN (HCC) TIA (transient ischemic attack) left leg motion movement and slurred speech PAST SURGICAL HISTORY Procedure Laterality Date CC CORONARY STENT 03/28/2019 LAD prox stent , RCA nondominant bifurcating severe disease small medical rx , [facility] -No restenosis in stent lad mild disease 06/14/23 POST-CATARACT LASER SURGERY Bilateral REMV CATARACT EXTRACAP,INSERT LENS Bilateral 2015 [facility]ISE TOTAL HIP REPLACEMENT Right TOTAL HIP REPLACEMENT Right SOCIAL HISTORY Social History Tobacco Use Smoking status: Never Smokeless tobacco: Never Vaping Use Vaping Use: Never used Substance Use Topics Alcohol use: Yes Comment: wine occas Drug use: No FAMILY HISTORY Problem Relation Age of Onset Heart Mother heart attack Hypertension Mother Cancer Mother stomach Cancer Sister breast non smoker half sister Heart Maternal Grandmother heart attack Diabetes No Family History Cataract No Family History Glaucoma No Family History Macular Degen No Family History ALLERGIES: ALLERGIES Allergen Reactions Ropinirole Other: See Comments Other reaction(s): nausea/dizziness, blurry vision Ygbeurt-Qpt-Yga Red* Other: See Comments Sulfa (Sulfonamide * Rash MEDICATIONS: amLODIPine (NORVASC) 10 mg tablet take 1 tablet by mouth every day ranolazine SR (RANEXA) 1,000 mg tab ER 12 hr Take 1 tablet by mouth two times a day. potassium chloride ER (KLOR-CON) 20 mEq tablet Take 1 tablet by mouth once daily. furosemide (LASIX) 40 mg tablet Take 1 tablet by mouth two times a day. evolocumab (REPATHA SURECLICK) 140 mg/mL pen injector Inject 140 mg subcutaneously as directed. Inject 1 pen subcu every 2 wks metoprolol succinate ER (TOPROL XL) 50 mg 24 hr tablet Take 0.5 tablet by mouth once daily. losartan (COZAAR) 25 mg tablet Take 2 tablets by mouth two times a day. levothyroxine (SYNTHROID) 50 mcg tablet Take 1 tablet by mouth daily at 6:00 am. Patient should start on December 12, 2023. INV VITAMIN D3 5000 UNITS CAPSULE (IRB 19-1548) Take 5,000 Units by mouth once daily. For Investigational Drug Use Only. PI: Stevan Lozoya, PhD. Take one capsule by mouth daily for 3 months prior to surgery and 3 months after surgery. cyanocobalamin (VITAMIN B-12) 1,000 mcg tab Take 1,000 mcg by mouth once daily. biotin 1 mg cap Take by mouth. omega 7-yzv-rcl-fish oil 1,000 mg (250 mg-750 mg)/5 mL liqd Take by mouth. Magnesium 200 mg tab Take 2 tablets by mouth once daily. aspirin 81 mg chewable tablet Aspirin Active 81 MG PO Daily March 27, 2019 11:00pm isosorbide mononitrate ER (IMDUR) 30 mg 24 hr tablet Take 1 tablet by mouth once daily. ezetimibe (ZETIA) 10 mg tablet Take 1 tablet by mouth once daily. (Patient taking differently: Take 10 mg by mouth daily at bedtime (more content not included)... [facility] ----- YANI GERARD ([id number]) 1940 F Date Time Provider Department 03/29/24 RADHA ZARAGOZA During your visit today, we recorded the following information about you: Beto Simon RN 03/29/2024 1:45 PM Signed Allergies As of Date: 03/29/2024 Noted Allergy Reaction ROPINIROLE 10/11/2021 14 - Other: See Comments Comments: Other reaction(s): nausea/dizziness, blurry vision YXISHRL-XVY-OOI REDUCTASE INHIBIT*04/26/2019 14 - Other: See Comments SULFA (SULFONAMIDE ANTIBIOTICS) 09/15/2005 2 - Rash Date Reviewed: 02/26/2024 Reviewed by: Jayden Burks MD - Fully Assessed Prescriptions as of 04/01/2024 - potassium chloride ER (KLOR-CON) 20 mEq tablet Take 1 tablet by mouth once daily. - furosemide (LASIX) 40 mg tablet Take 1 tablet by mouth two times a day. - evolocumab (REPATHA SURECLICK) 140 mg/mL pen injector Inject 140 mg subcutaneously as directed. Inject 1 pen subcu every 2 wks - metoprolol succinate ER (TOPROL XL) 50 mg 24 hr tablet Take 0.5 tablet by mouth once daily. - losartan (COZAAR) 25 mg tablet Take 2 tablets by mouth two times a day. - levothyroxine (SYNTHROID) 50 mcg tablet Take 1 tablet by mouth daily at 6:00 am. Patient should start on December 12, 2023. - INV VITAMIN D3 5000 UNITS CAPSULE (IRB 19-1548) Take 5,000 Units by mouth once daily. For Investigational Drug Use Only. PI: Stevan Lozoya, PhD. Take one capsule by mouth daily for 3 months prior to surgery and 3 months after surgery. - cyanocobalamin (VITAMIN B-12) 1,000 mcg tab Take 1,000 mcg by mouth once daily. - biotin 1 mg cap Take by mouth. - omega 9-nbt-ger-fish oil 1,000 mg (250 mg-750 mg)/5 mL liqd Take by mouth. - clopidogrel (PLAVIX) 75 mg tablet Take 75 mg by mouth once daily. - Magnesium 200 mg tab Take 2 tablets by mouth once daily. - aspirin 81 mg chewable tablet Aspirin Active 81 MG PO Daily March 27, 2019 11:00pm - amLODIPine (NORVASC) 10 mg tablet Take 1 tablet by mouth once daily. - isosorbide mononitrate ER (IMDUR) 30 mg 24 hr tablet Take 1 tablet by mouth once daily. - ezetimibe (ZETIA) 10 mg tablet Take 1 tablet by mouth once daily. - ranolazine SR (RANEXA) 1,000 mg tab ER 12 hr Take 1 tablet by mouth twice daily. - nitroglycerin sublingual (NITROQUICK) 0.3 mg SL tablet Dissolve 1 tablet under the tongue every 5 minutes as needed for chest pain. - taubktxpbfb-lklsomhwm-moa anter (TRELEGY ELLIPTA) 100-62.5-25 mcg inhalation powder Inhale 1 Puff as instructed as needed. - cholecalciferol, vitamin D3, (VITAMIN D3 ORAL) Take by mouth. - Ascorbic Acid (VITAMIN C) 100 mg tablet Take 100 mg by mouth once daily. - acetaminophen 650 mg CR tablet Take 650 mg by mouth every 8 hours as needed. - pramipexole (MIRAPEX) 0.5 mg tablet Take 0.25 mg by mouth two times a day. Problem List As Of Date 03/29/2024 Noted Resolved ACTINIC KERATOSIS [L57.0] 07/22/2008 SEBACEOUS GLAND DIS NEC [L73.8] 07/22/2008 HTN (hypertension) [I10] 06/11/2014 Hyperlipidemia [E78.5] 06/11/2014 Statin myopathy (HCC) [G72.0, T46.6X5A] 06/11/2014 Preoperative cardiovascular examination [Z01.81*05/27/2015 CAD (coronary artery disease) [I25.10] 05/27/2015 Dizziness [R42] 09/24/2018 05/20/2021 Abnormality of gait [R26.9] 10/03/2018 Benign paroxysmal positional vertigo of right e*10/03/2018 05/20/2021 Clear Outcomes Study, PI: Eva Fishcer MD [Z00.6]10/04/2018 Lumbar back pain with radiculopathy affecting l*03/21/2019 05/20/2021 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1] 12/09/2023 Nonintractable episodic headache [R51.9] 12/10/2023 12/11/2023 Seizure-like activity (HCC) [R56.9] 12/30/2023 12/31/2023 Bradycardia [R00.1] 12/31/2023 Atherosclerosis of aorta (HCC) [I70.0] 02/12/2024 Encounter Status:Closed by LISANDRA MIDDLETON on 04/01/24 Normal [facility] Basic metabolic 2000 panelon 03-28-2024 Anion gap [Moles/Vol] 6 mmol/L Low 9-18 [facility] Comment on above: Order Comment: Speci men Type: BLOOD SPECIMENOrdering Facility: [facility] Address: [address] [id number] Performed By: #### 2 4321-2 ####[facility] LABCLIA [id number] [place] [address] [place] Calcium [Mass/Vol] 8.9 mg/dL Normal 8.5-10.2 [facility] Comment on above: Order Comment: Speci men Type: BLOOD SPECIMENOrdering Facility: [facility] Address: [address] [place] [address] Performed By: #### 2 4321-2 ####[facility] LABIA [id number] [place] [id number] [place] Chloride [Moles/Vol] 101 mmol/L Normal 97-105 [facility] Comment on above: Order Comment: Speci men Type: BLOOD SPECIMENOrdering Facility: [facility] Address: [address] [place] [address] Performed By: #### 2 4321-2 ####[facility] LABIA [id number] [place] [id number] [place] CO2 [Moles/Vol] 33 mmol/L High 22-30 [facility] Comment on above: Order Comment: Speci men Type: BLOOD SPECIMENOrdering Facility: [facility] Address: [address] [place] [address] Performed By: #### 2 4321-2 ####[facility] LABIA [id number] [place] [address] [place] Creatinine [Mass/Vol] 0.81 mg/dL Normal 0.58-0.96 [facility] Comment on above: Order Comment: Speci men Type: BLOOD SPECIMENOrdering Facility: [facility] Address: [address] [id number] Performed By: #### 2 4321-2 ####[facility] LABCLIA [id number] [place] [address] [place] Creatinine and Glomerular filtration rate.predicted panel (S/P/Bld) 72 mL/min/1.73m??? Normal >=60 [facility] Comment on above: Order Comment: Maycol hdez Type: BLOOD SPECIMENOrdering Facility: [facility] Address: [address] [place] [address] Result Comment: Mallika mated Glomerular Filtration Rate (eGFR) is calculated using the 2020 CKD-EPI creatinine equation. This equation utilizes serum creatinine, sex, and age as parameters. The creatinine assay has traceable calibration to isotope dilution-mass spectrometry. Refer to KDIGO guidelines for clinical interpretation. In patients with unstable renal function, e.g. those with acute kidney injury, the eGFR may not accurately reflect actual GFR. Performed By: #### 2 4321-2 ####[facility] LABCLIA [id number] [place] [address] [place] Glucose [Mass/Vol] 102 mg/dL High 74-99 [facility] Comment on above: Order Comment: Maycol hdez Type: BLOOD SPECIMENOrdering Facility: [facility] Address: [address] [place] [address] Result Comment: The [place] [employer] (ADA) provides guidance for cutoff values for fasting glucose and random glucose. The ADA defines fasting as no caloric intake for at least 8 hours. Fasting plasma glucose results between 100 to 125 mg/dL indicate increased risk for diabetes (prediabetes). Fasting plasma glucose results greater than or equal to 126 mg/dL meet the criteria for diagnosis of diabetes. In the absence of unequivocal hyperglycemia, results should be confirmed by repeat testing. In a patient with classic symptoms of hyperglycemia or hyperglycemic crisis, random plasma glucose results greater than or equal to 200 mg/dL meet the criteria for diagnosis of diabetes. Reference: Standards of Medical Care in Diabetes 2016, [place] [employer]. Diabetes Care. 2016.39(Suppl 1). Performed By: #### 2 4321-2 ####[facility] LABCLIA [id number] [place] [id number] [place] Potassium [Moles/Vol] 4.0 mmol/L Normal 3.7-5.1 [facility] Comment on above: Order Comment: Speci men Type: BLOOD SPECIMENOrdering Facility: [facility] Address: [address] [place] [address] Performed By: #### 2 4321-2 ####[facility] LABCLIA [id number] [place] [address] [place] Sodium [Moles/Vol] 140 mmol/L Normal 136-144 [facility] Comment on above: Order Comment: Speci men Type: BLOOD SPECIMENOrdering Facility: [facility] Address: [address] [place] [address] Performed By: #### 2 4321-2 ####[facility] LABCLIA [id number] [place] [id number] [place] Urea nitrogen [Mass/Vol] 20 mg/dL Normal 7-21 [facility] Comment on above: Order Comment: Speci men Type: BLOOD SPECIMENOrdering Facility: [facility] Address: [address] [place] [address] Performed By: #### 2 4321-2 ####[facility] LABCLIA [id number] [place] [id number] [facility] CNTHERAPYon 03-28-2024 CNTHERAPY OT/PT/Speech Visit ([facility]) ----- YANI GERARD ([id number]) 1940 F Date Time Provider Department 03/28/24 8:15 AM BEENA GALLARDO [facility] Date Time Provider Department Center 03/28/2024 8:15 AM [id number], KARA [facility] Reason for Visit: Physical Therapy [503] Primary Visit Diagnosis:Dizziness [R42] Other Visit Diagnoses:Balance problem [R26.89] Benign paroxysmal positional vertigo of left ear [H81.12] Allergies As of Date: 03/28/2024 Noted Allergy Reaction ROPINIROLE 10/11/2021 14 - Other: See Comments Comments: Other reaction(s): nausea/dizziness, blurry vision [id number] REDUCTASE INHIBIT*04/26/2019 14 - Other: See Comments SULFA (SULFONAMIDE ANTIBIOTICS) 09/15/2005 2 - Rash Date Reviewed: 02/26/2024 Reviewed by: Jayden Burks MD - Fully Assessed Prescriptions as of 03/28/2024 - potassium chloride ER (KLOR-CON) 20 mEq tablet Take 1 tablet by mouth once daily. - furosemide (LASIX) 40 mg tablet Take 1 tablet by mouth two times a day. - evolocumab (REPATHA SURECLICK) 140 mg/mL pen injector Inject 140 mg subcutaneously as directed. Inject 1 pen subcu every 2 wks - metoprolol succinate ER (TOPROL XL) 50 mg 24 hr tablet Take 0.5 tablet by mouth once daily. - losartan (COZAAR) 25 mg tablet Take 2 tablets by mouth two times a day. - levothyroxine (SYNTHROID) 50 mcg tablet Take 1 tablet by mouth daily at 6:00 am. Patient should start on December 12, 2023. - INV VITAMIN D3 5000 UNITS CAPSULE (IRB 19-1548) Take 5,000 Units by mouth once daily. For Investigational Drug Use Only. PI: Stevan Lozoya, PhD. Take one capsule by mouth daily for 3 months prior to surgery and 3 months after surgery. - cyanocobalamin (VITAMIN B-12) 1,000 mcg tab Take 1,000 mcg by mouth once daily. - biotin 1 mg cap Take by mouth. - omega 6-woj-qur-fish oil 1,000 mg (250 mg-750 mg)/5 mL liqd Take by mouth. - clopidogrel (PLAVIX) 75 mg tablet Take 75 mg by mouth once daily. - Magnesium 200 mg tab Take 2 tablets by mouth once daily. - aspirin 81 mg chewable tablet Aspirin Active 81 MG PO Daily March 27, 2019 11:00pm - amLODIPine (NORVASC) 10 mg tablet Take 1 tablet by mouth once daily. - isosorbide mononitrate ER (IMDUR) 30 mg 24 hr tablet Take 1 tablet by mouth once daily. - ezetimibe (ZETIA) 10 mg tablet Take 1 tablet by mouth once daily. - ranolazine SR (RANEXA) 1,000 mg tab ER 12 hr Take 1 tablet by mouth twice daily. - nitroglycerin sublingual (NITROQUICK) 0.3 mg SL tablet Dissolve 1 tablet under the tongue every 5 minutes as needed for chest pain. - unwqwmaqqpe-qtjchhhdw-ypo anter (TRELEGY ELLIPTA) 100-62.5-25 mcg inhalation powder Inhale 1 Puff as instructed as needed. - cholecalciferol, vitamin D3, (VITAMIN D3 ORAL) Take by mouth. - Ascorbic Acid (VITAMIN C) 100 mg tablet Take 100 mg by mouth once daily. - acetaminophen 650 mg CR tablet Take 650 mg by mouth every 8 hours as needed. - pramipexole (MIRAPEX) 0.5 mg tablet Take 0.25 mg by mouth two times a day. ----- Ana [facility] Anila 03-18-2024 LUAN Telephone (NAKITA) ----- YANI GERARD ([id number]) 1940 F Date Time Provider Department 03/18/24 JAYDEN BURKS During your visit today, we recorded the following information about you: Melony Ochoa 03/18/2024 10:53 AM Signed [facility] Physical Therapy plan of care scanned to [facility] for completion and signature. Flaquita Tomlinson RN 03/19/2024 1:27 PM Signed POC faxed to [facility] rehab. Fax confirmation received. Allergies As of Date: 03/18/2024 Noted Allergy Reaction ROPINIROLE 10/11/2021 14 - Other: See Comments Comments: Other reaction(s): nausea/dizziness, blurry vision [id number] REDUCTASE INHIBIT*04/26/2019 14 - Other: See Comments SULFA (SULFONAMIDE ANTIBIOTICS) 09/15/2005 2 - Rash Date Reviewed: 02/26/2024 Reviewed by: Jayden Bursk MD - Fully Assessed Reason for Visit: Orders [681] Prescriptions as of 03/19/2024 - potassium chloride ER (KLOR-CON) 20 mEq tablet Take 1 tablet by mouth once daily. - furosemide (LASIX) 40 mg tablet Take 1 tablet by mouth two times a day. - evolocumab (REPATHA SURECLICK) 140 mg/mL pen injector Inject 140 mg subcutaneously as directed. Inject 1 pen subcu every 2 wks - metoprolol succinate ER (TOPROL XL) 50 mg 24 hr tablet Take 0.5 tablet by mouth once daily. - losartan (COZAAR) 25 mg tablet Take 2 tablets by mouth two times a day. - levothyroxine (SYNTHROID) 50 mcg tablet Take 1 tablet by mouth daily at 6:00 am. Patient should start on December 12, 2023. - INV VITAMIN D3 5000 UNITS CAPSULE (IRB 19-1548) Take 5,000 Units by mouth once daily. For Investigational Drug Use Only. PI: Stevan Lozoya, PhD. Take one capsule by mouth daily for 3 months prior to surgery and 3 months after surgery. - cyanocobalamin (VITAMIN B-12) 1,000 mcg tab Take 1,000 mcg by mouth once daily. - biotin 1 mg cap Take by mouth. - omega 7-awk-wgv-fish oil 1,000 mg (250 mg-750 mg)/5 mL liqd Take by mouth. - clopidogrel (PLAVIX) 75 mg tablet Take 75 mg by mouth once daily. - Magnesium 200 mg tab Take 2 tablets by mouth once daily. - aspirin 81 mg chewable tablet Aspirin Active 81 MG PO Daily March 27, 2019 11:00pm - amLODIPine (NORVASC) 10 mg tablet Take 1 tablet by mouth once daily. - isosorbide mononitrate ER (IMDUR) 30 mg 24 hr tablet Take 1 tablet by mouth once daily. - ezetimibe (ZETIA) 10 mg tablet Take 1 tablet by mouth once daily. - ranolazine SR (RANEXA) 1,000 mg tab ER 12 hr Take 1 tablet by mouth twice daily. - nitroglycerin sublingual (NITROQUICK) 0.3 mg SL tablet Dissolve 1 tablet under the tongue every 5 minutes as needed for chest pain. - wrjncyhykdw-eysffeihb-hzz anter (TRELEGY ELLIPTA) 100-62.5-25 mcg inhalation powder Inhale 1 Puff as instructed as needed. - cholecalciferol, vitamin D3, (VITAMIN D3 ORAL) Take by mouth. - Ascorbic Acid (VITAMIN C) 100 mg tablet Take 100 mg by mouth once daily. - acetaminophen 650 mg CR tablet Take 650 mg by mouth every 8 hours as needed. - pramipexole (MIRAPEX) 0.5 mg tablet Take 0.25 mg by mouth two times a day. Problem List As Of Date 03/18/2024 Noted Resolved ACTINIC KERATOSIS [L57.0] 07/22/2008 SEBACEOUS GLAND DIS NEC [L73.8] 07/22/2008 HTN (hypertension) [I10] 06/11/2014 Hyperlipidemia [E78.5] 06/11/2014 Statin myopathy (HCC) [G72.0, T46.6X5A] 06/11/2014 Preoperative cardiovascular examination [Z01.81*05/27/2015 CAD (coronary artery disease) [I25.10] 05/27/2015 Dizziness [R42] 09/24/2018 05/20/2021 Abnormality of gait [R26.9] 10/03/2018 Benign paroxysmal positional vertigo of right e*10/03/2018 05/20/2021 Clear Outcomes Study, PI: Eva Fischer MD [Z00.6]10/04/2018 Lumbar back pain with radiculopathy affecting l*03/21/2019 05/20/2021 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 Author Type: Physical Therapist Type: [id number] Filed: 03/15/2024 16:29 Note Text: [facility] Physical Therapy Plan of Care Certification Patient Name: Yani Gerard : 1940 [facility] #: [id number] Date: 03/15/2024 To: Jayden Burks MD From Therapist: Beena Gallardo PT RE: Patient Certification/ Recertification Your review, approval and electronic signature are required in order to comply with Payor: [employer] MEDICARE / Plan: [employer] MEDICARE PPO / Product Type: PPO / regulations. The identified Physical Therapy PLAN OF CARE for the patient is as follows: R26.89 Balance problem (primary encounter diagnosis) R42 Vertigo H81.12 Benign paroxysmal positional vertigo of left ear PLAN OF CARE: Assessment: Yani Gerard presents with chief complaint of imbalance upon rising from bed and bending over that interferes with Comments walking (overnight) getting up from chair, bending over with ADL and work. She presents with impairments in ADL's, balance, gait, independence in exercise, patient reported outcome measures, stress management, and symptom management. PROMIS? (Patient-Reported Outcomes Measurement Information System) scores were reviewed and identified as within normal limits. Prognosis for therapy is Fair due to: clinical presentation, multiple co- morbidities, advanced age, chronic nature of impairments . Examination today most consistent with L HZ Cupulolithiasis, treatment in home and HEP initiated. Will benefit from balance assessments at next appointment. She will benefit from skilled therapy services to meet the goals established for this plan of care as noted below. 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 Further assessments of balance and response to treatment warranted. Goals for Episode of Care: created on 03/15/24 through 05/10/24 Patient will have negative positional testing for BPPV. Patient/family member will be independent in performing self PRT. Patient will verbalize the understanding of the diagnosis BPPV, how to recognize symptoms and what to do if they return. Patient will be independent with home exercise program and progression. Patient will return to prior level of function with all activities of daily living with trace reports of dizziness. Patient Goals: improve balance and off sensation. Planned Interventions, Frequency, and Duration: Current Frequency: 1x/week Duration: 8 weeks Total Number of Visits Planned: 8 Planned Treatment Interventions: Therapeutic exercise (10629), Neuromuscular re-education (78080), Manual therapy (78369), Therapeutic activities (53719), Self-long term management (33422), Gait Training (80655), Patient/Family/Caregiver Education, Canalith Repositioning Maneuvers (42238) PLAN FOR NEXT VISIT: Repeat VNG, treat as appropriate. Consider habituation exercises Patient demonstrates good understanding of plan of care and treatment. The above goals and plan of care were discussed and agreed upon by patient/family. For further details regarding this patient refer to the Physical Therapy electronically documented visit dated 03/15/2024. Provider Attestation I have reviewed the treatment plan for Yani Montes Didilucero, CC# [id number] for the period of 03/15/24 -- 05/10/24, established on 03/15/2024. Signature certifies the need for therapy services. Normal [facility] CNTHERAPYon 03-15-2024 CNTHERAPY OT/PT/Speech Visit ([facility]) ----- YANI GERARD ([id number]) 1940 F Date Time Provider Department 03/15/24 12:00 PM BEENA GALLARDO [facility] Date Time Provider Department Center 03/15/2024 12:00 PM [id number], KARA [facility] [place] [facility] Reason for Visit: PT Re-eval [891] Primary Visit Diagnosis:Balance problem [R26.89] Other Visit Diagnoses:Vertigo [R42] Benign paroxysmal positional vertigo of left ear [H81.12] Allergies As of Date: 03/15/2024 Noted Allergy Reaction ROPINIROLE 10/11/2021 14 - Other: See Comments Comments: Other reaction(s): nausea/dizziness, blurry vision [id number] REDUCTASE INHIBIT*04/26/2019 14 - Other: See Comments SULFA (SULFONAMIDE ANTIBIOTICS) 09/15/2005 2 - Rash Date Reviewed: 02/26/2024 Reviewed by: Jayden Burks MD - Fully Assessed Prescriptions as of 03/15/2024 - potassium chloride ER (KLOR-CON) 20 mEq tablet Take 1 tablet by mouth once daily. - furosemide (LASIX) 40 mg tablet Take 1 tablet by mouth two times a day. - evolocumab (REPATHA SURECLICK) 140 mg/mL pen injector Inject 140 mg subcutaneously as directed. Inject 1 pen subcu every 2 wks - metoprolol succinate ER (TOPROL XL) 50 mg 24 hr tablet Take 0.5 tablet by mouth once daily. - losartan (COZAAR) 25 mg tablet Take 2 tablets by mouth two times a day. - levothyroxine (SYNTHROID) 50 mcg tablet Take 1 tablet by mouth daily at 6:00 am. Patient should start on December 12, 2023. - INV VITAMIN D3 5000 UNITS CAPSULE (IRB 19-8460) Take 5,000 Units by mouth once daily. For Investigational Drug Use Only. PI: Stevan Lozoya, PhD. Take one capsule by mouth daily for 3 months prior to surgery and 3 months after surgery. - cyanocobalamin (VITAMIN B-12) 1,000 mcg tab Take 1,000 mcg by mouth once daily. - biotin 1 mg cap Take by mouth. - omega 9-qmn-oqe-fish oil 1,000 mg (250 mg-750 mg)/5 mL liqd Take by mouth. - clopidogrel (PLAVIX) 75 mg tablet Take 75 mg by mouth once daily. - Magnesium 200 mg tab Take 2 tablets by mouth once daily. - aspirin 81 mg chewable tablet Aspirin Active 81 MG PO Daily March 27, 2019 11:00pm - amLODIPine (NORVASC) 10 mg tablet Take 1 tablet by mouth once daily. - isosorbide mononitrate ER (IMDUR) 30 mg 24 hr tablet Take 1 tablet by mouth once daily. - ezetimibe (ZETIA) 10 mg tablet Take 1 tablet by mouth once daily. - ranolazine SR (RANEXA) 1,000 mg tab ER 12 hr Take 1 tablet by mouth twice daily. - nitroglycerin sublingual (NITROQUICK) 0.3 mg SL tablet Dissolve 1 tablet under the tongue every 5 minutes as needed for chest pain. - dckecjuulgh-kslwfnrmp-wll anter (TRELEGY ELLIPTA) 100-62.5-25 mcg inhalation powder Inhale 1 Puff as instructed as needed. - cholecalciferol, vitamin D3, (VITAMIN D3 ORAL) Take by mouth. - Ascorbic Acid (VITAMIN C) 100 mg tablet Take 100 mg by mouth once daily. - acetaminophen 650 mg CR tablet Take 650 mg by mouth every 8 hours as needed. - pramipexole (MIRAPEX) 0.5 mg tablet Take 0.25 mg by mouth two times a day. Facility-Administered Medications as of 03/15/2024 - perflutren lipid microspheres 1.3 mL in NaCl (PF) 0.9% 10 mL injection (DEFINITY) - sodium chloride 0.9 % (flush) 10 mL (BD POSIFLUSH) ----- Letter Text Normal [facility] Anila 03-11-2024 CNPN Telephone (ORTEGA) ----- YANI GERARD ([id number]) 1940 F Date Time Provider Department 03/11/24 RADHA ZARAGOZA During your visit today, we recorded the following information about you: Sandee Monteior, MATT 03/11/2024 2:38 PM Signed Radha Zaragoza APRN.[employer] P [facility] Please call and let her know that her potassium is a little low. I have sent a script for potassium supplement. She should have labs repeated in 2 weeks. Her CXR did not show any overt signs of heart failure. ?possible bronchitis. She should also discuss with her PCP. Sandee Monteiro, RN 03/13/2024 1:19 PM Signed Called and spoke to patient in regards to message below. Verbalizes understanding. Appreciative for phone call. Allergies As of Date: 03/11/2024 Noted Allergy Reaction ROPINIROLE 10/11/2021 14 - Other: See Comments Comments: Other reaction(s): nausea/dizziness, blurry vision DSMWWRZ-BIM-XQF REDUCTASE INHIBIT*04/26/2019 14 - Other: See Comments SULFA (SULFONAMIDE ANTIBIOTICS) 09/15/2005 2 - Rash Date Reviewed: 02/26/2024 Reviewed by: Jayden Burks MD - Fully Assessed Prescriptions as of 03/13/2024 - potassium chloride ER (KLOR-CON) 20 mEq tablet Take 1 tablet by mouth once daily. - furosemide (LASIX) 40 mg tablet Take 1 tablet by mouth two times a day. - evolocumab (REPATHA SURECLICK) 140 mg/mL pen injector Inject 140 mg subcutaneously as directed. Inject 1 pen subcu every 2 wks - metoprolol succinate ER (TOPROL XL) 50 mg 24 hr tablet Take 0.5 tablet by mouth once daily. - losartan (COZAAR) 25 mg tablet Take 2 tablets by mouth two times a day. - levothyroxine (SYNTHROID) 50 mcg tablet Take 1 tablet by mouth daily at 6:00 am. Patient should start on December 12, 2023. - INV VITAMIN D3 5000 UNITS CAPSULE (IRB 19-1548) Take 5,000 Units by mouth once daily. For Investigational Drug Use Only. PI: Stevan Lozoya, PhD. Take one capsule by mouth daily for 3 months prior to surgery and 3 months after surgery. - cyanocobalamin (VITAMIN B-12) 1,000 mcg tab Take 1,000 mcg by mouth once daily. - biotin 1 mg cap Take by mouth. - omega 1-blv-afo-fish oil 1,000 mg (250 mg-750 mg)/5 mL liqd Take by mouth. - clopidogrel (PLAVIX) 75 mg tablet Take 75 mg by mouth once daily. - Magnesium 200 mg tab Take 2 tablets by mouth once daily. - aspirin 81 mg chewable tablet Aspirin Active 81 MG PO Daily March 27, 2019 11:00pm - amLODIPine (NORVASC) 10 mg tablet Take 1 tablet by mouth once daily. - isosorbide mononitrate ER (IMDUR) 30 mg 24 hr tablet Take 1 tablet by mouth once daily. - ezetimibe (ZETIA) 10 mg tablet Take 1 tablet by mouth once daily. - ranolazine SR (RANEXA) 1,000 mg tab ER 12 hr Take 1 tablet by mouth twice daily. - nitroglycerin sublingual (NITROQUICK) 0.3 mg SL tablet Dissolve 1 tablet under the tongue every 5 minutes as needed for chest pain. - xygvlijprwl-kvtioljyf-oah anter (TRELEGY ELLIPTA) 100-62.5-25 mcg inhalation powder Inhale 1 Puff as instructed as needed. - cholecalciferol, vitamin D3, (VITAMIN D3 ORAL) Take by mouth. - Ascorbic Acid (VITAMIN C) 100 mg tablet Take 100 mg by mouth once daily. - acetaminophen 650 mg CR tablet Take 650 mg by mouth every 8 hours as needed. - pramipexole (MIRAPEX) 0.5 mg tablet Take 0.25 mg by mouth two times a day. 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, T46.6X5A] 06/11/2014 Preoperative cardiovascular examination [Z01.81*05/27/2015 CAD (coronary artery disease) [I25.10] 05/27/2015 Dizziness [R42] 09/24/2018 05/20/2021 Abnormality of gait [R26.9] 10/03/2018 Benign paroxysmal positional vertigo of right e*10/03/2018 05/20/2021 Clear Outcomes Study, PI: Eva Fischer MD [Z00.6]10/04/2018 Lumbar back pain with radiculopathy affecting l*03/21/2019 05/20/2021 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 Normal [facility] Basic metabolic 2000 panelon 03-07-2024 Anion gap [Moles/Vol] 15 mmol/L Normal 9-18 [facility] Comment on above: Order Comment: Speci men Type: BLOOD SPECIMENOrdering Facility: [facility] Address: [address] [place] [address] Performed By: #### 3 3762-6, 27806-8 ####[facility] LABORATORYCLIA [id number] [place] [id number] [place] Calcium [Mass/Vol] 9.1 mg/dL Normal 8.5-10.2 [facility] Comment on above: Order Comment: Speci men Type: BLOOD SPECIMENOrdering Facility: [facility] Address: [address] [place] [address] Performed By: #### 3 3762-6, 55902-7 ####[facility]ORATORYCLIA [id number] [place] [id number] [place] Chloride [Moles/Vol] 104 mmol/L Normal 97-105 [facility] Comment on above: Order Comment: Speci men Type: BLOOD SPECIMENOrdering Facility: [facility] Address: [address] [place] [address] Performed By: #### 3 3762-6, 75988-7 ####[facility] LABORATORYCLIA [id number] [place] [id number] [place] CO2 [Moles/Vol] 26 mmol/L Normal 22-30 [facility] Comment on above: Order Comment: Speci men Type: BLOOD SPECIMENOrdering Facility: [facility] Address: [address] [place] [address] Performed By: #### 3 3762-6, 70432-9 ####[facility] LABORATORYCLIA [id number] [place] [id number] [place] Creatinine [Mass/Vol] 0.66 mg/dL Normal 0.58-0.96 [facility] Comment on above: Order Comment: Maycol ketty Type: BLOOD SPECIMENOrdering Facility: [facility] Address: [address] [place] [address] Performed By: #### 3 3762-6, 95286-6 ####[facility] LABORATORYCLIA [id number] [place] [id number] [place] Creatinine and Glomerular filtration rate.predicted panel (S/P/Bld) 87 mL/min/1.73m??? Normal >=60 [facility] Comment on above: Order Comment: Maycol ketty Type: BLOOD SPECIMENOrdering Facility: [facility] Address: [address] [place] [address] Result Comment: Mallika mated Glomerular Filtration Rate (eGFR) is calculated using the 2020 CKD-EPI creatinine equation. This equation utilizes serum creatinine, sex, and age as parameters. The creatinine assay has traceable calibration to isotope dilution-mass spectrometry. Refer to KDIGO guidelines for clinical interpretation. In patients with unstable renal function, e.g. those with acute kidney injury, the eGFR may not accurately reflect actual GFR. Performed By: #### 3 3762-6, 04683-0 ####[facility] LABORATORYCLIA [id number] [place] [id number] [place] Glucose [Mass/Vol] 101 mg/dL High 74-99 [facility] Comment on above: Order Comment: Kaurgely hdez Type: BLOOD SPECIMENOrdering Facility: [facility] Address: [address] [place] [address] Result Comment: The [place] [employer] (ADA) provides guidance for cutoff values for fasting glucose and random glucose. The ADA defines fasting as no caloric intake for at least 8 hours. Fasting plasma glucose results between 100 to 125 mg/dL indicate increased risk for diabetes (prediabetes). Fasting plasma glucose results greater than or equal to 126 mg/dL meet the criteria for diagnosis of diabetes. In the absence of unequivocal hyperglycemia, results should be confirmed by repeat testing. In a patient with classic symptoms of hyperglycemia or hyperglycemic crisis, random plasma glucose results greater than or equal to 200 mg/dL meet the criteria for diagnosis of diabetes. Reference: Standards of Medical Care in Diabetes 2016, [place] [employer]. Diabetes Care. 2016.39(Suppl 1). Performed By: #### 3 3762-6, 92070-3 ####[facility] LABORATORYCLIA [id number] [place] [address] [place] Potassium [Moles/Vol] 3.3 mmol/L Low 3.7-5.1 [facility] Comment on above: Order Comment: Speci men Type: BLOOD SPECIMENOrdering Facility: [facility] Address: [address] [place] [address] Performed By: #### 3 3762-6, 30957-4 ####[facility] LABORATORYCLIA [id number] [place] [address] [place] Sodium [Moles/Vol] 145 mmol/L High 136-144 [facility] Comment on above: Order Comment: Speci men Type: BLOOD SPECIMENOrdering Facility: [facility] Address: [address] [place] [address] Performed By: #### 3 3762-6, 47977-8 ####[facility] LABORATORYCLIA [id number] [address] [place] Urea nitrogen [Mass/Vol] 19 mg/dL Normal 7-21 [facility] Comment on above: Order Comment: Speci men Type: BLOOD SPECIMENOrdering Facility: [facility] Address: [address] [place] [address] Performed By: #### 3 3762-6, 40250-8 ####[facility] LABORATORYCLIA [id number] [address] [place] NT-proBNP [facility] 03-07 Natriuretic peptide.B prohormone N-Terminal [Mass/Vol] 332 pg/mL Normal <450 [facility] Comment on above: Order Comment: Speci men Type: BLOOD SPECIMENOrdering Facility: [facility] Address: [address] [place] [address] Performed By: #### 3 3762-6, 80262-3 ####[facility] LABORATORYCLIA [id number] [place] [address] [place] XR CHEST 2V FRONTAL/LATon XR CHEST 2V FRONTAL/LAT * * *Final Report* * * DATE OF EXAM: Mar 07 2024 2:29PM FVX [id number] - XR CHEST 2V FRONTAL/LAT / PROCEDURE REASON: SOB (shortness of breath) * * * * Physician Interpretation * * * * EXAMINATION: CHEST RADIOGRAPH (2 VIEW FRONTAL and LATERAL) CLINICAL HISTORY: SOB (shortness of breath) MQ: XC2_6 EXAM DATE/TIME: 03/07/2024 2:29 PM COMPARISON: 08/09/2012. RESULT: Lines, tubes, and devices: None. Lungs and pleura: There are vague increased bronchovascular markings in the right lower lung which may be related to mild changes of fibrosis/bronchitis. No consolidation. No lung mass. No pleural effusion. No pneumothorax. Cardiomediastinal silhouette: Stable cardiomediastinal silhouette with atherosclerosis of the thoracic aorta. Bones and soft tissues: Unremarkable. IMPRESSION: Nonspecific right lower lung parenchymal changes as described above. A follow-up exam is recommended. 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 Continue medications. Thanks, Radha Zaragoza APRN.Mikayla Fisher, MATT 03/04/2024 3:51 PM Signed I called pt to advise information below. Pt said her PCP increased the lasix dose from 20 mg daily to 40mg daily to help with BLE edema. Pt education given for compression stockings, elevate legs at rest, low sodium diet, and ambulation. Pt confirmed understanding, and no further questions. Sandee Monteiro, MATT 03/04/2024 4:33 PM Signed Patient's called back regarding concerns of leg swelling and shortness of breath. Voiced concerns that Hector is already following the below recommendations and has not seen any improvement. States she has considerable leg swelling and shortness of breath with activity. This has been worsening for the past 6 weeks. Endorses 7-8 lb weight gain. Typically very active and having difficulty climbing a flight of stairs without stopping to sit and catch her breath at the top of the stairs. Pt and are grateful that stress test is normal but would like answers as to why she is feeling the way she is feeling. Advised that message would be sent to Dr. Harkins and Radha Zaragoza CNP regarding next steps. Advised that should symptoms worsen or not resolve with rest that patient should evaluated in the emergency department. Verbalizes understanding. Radha Zaragoza APRN.CHERIE 03/04/2024 4:42 PM Signed Addended by: RADHA ZARAGOZA on: 03/04/2024 04:42 PM Modules accepted: Fiona Horton MD 03/05/2024 7:57 PM Signed CXR and BMP and pBNP, take lasix 40mg twice a day and RN visit in 10 days to assess weight and leg swelling on day I am in office. TO ER if feel poorly or symptoms persist MD Cayetnao Neff Renee, RN 03/06/2024 3:00 PM Signed Called and spoke to patient and regarding message below. Spoke to them at length about the updated plan of care. Verbalizes understanding. Nurse visit scheduled for 03/18 at 2:30 pm. Phone number for Fercho Jose tate and REJ provided to schedule chest xray. Sandee Monteiro RN 03/06/2024 3:02 PM Signed Addended by: SANDEE MONTEIRO on: 03/06/2024 03:02 PM Modules accepted: Orders Allergies As of Date: 03/04/2024 Noted Allergy Reaction ROPINIROLE 10/11/2021 14 - Other: See Comments Comments: Other reaction(s): nausea/dizziness, blurry vision CEWSVTH-BEL-RNE REDUCTASE INHIBIT*04/26/2019 14 - Other: See Comments SULFA (SULFONAMIDE ANTIBIOTICS) 09/15/2005 2 - Rash Date Reviewed: 02/26/2024 Reviewed by: Jayden Burks MD - Fully Assessed Reason for Visit: Returning Patient's Call [408] Primary Visit Diagnosis:SOB (shortness of breath) [R06.02] Order(s):XR CHEST 2V FRONTAL/LAT [[id number]] Order #: [id number] FUTURE BASIC METABOLIC PANEL [SQBMP] Order #: [id number] FUTURE NT PRO BNP [SQNTBNP] Order #: [id number] FUTURE furosemide (LASIX) 40 mg tabletTake 1 tablet by mouth two times a day.Disp: 180 tabletRfl: 3 Prescriptions as of 03/06/2024 - furosemide (LASIX) 40 mg tablet Take 1 tablet by mouth two times a day. - evolocumab (REPATHA SURECLICK) 140 mg/mL pen injector Inject 140 mg subcutaneously as directed. Inject 1 pen subcu every 2 wks - metoprolol succinate ER (TOPROL XL) 50 mg 24 hr tablet Take 0.5 tablet by mouth once daily. - losartan (COZAAR) 25 mg tablet Take 2 tablets by mouth two times a day. - levothyroxine (SYNTHROID) 50 mcg tablet Take 1 tablet by mouth daily at 6:00 am. Patient should start on December 12, 2023. - INV VITAMIN D3 5000 UNITS CAPSULE (IRB 19-1548) Take 5,000 Units by mouth once daily. For Investigational Drug Use Only. PI: Stevan Lozoya, PhD. Take one capsule by mouth daily for 3 months prior to surgery and 3 months after surgery. - cyanocobalamin (VITAMIN B-12) 1,000 mcg tab Take 1,000 mcg by mouth once daily. - biotin 1 mg cap Take by mouth. - omega 8-qim-pti-fish oil 1,000 mg (250 mg-750 mg)/5 mL liqd Take by mouth. - clopidogrel (PLAVIX) 75 mg tablet Take 75 mg by mouth once daily. - Magnesium 200 mg tab Take 2 tablets by mouth once daily. - aspirin 81 mg chewable tablet Aspirin Active 81 MG PO Daily March 27, 2019 11:00pm - amLODIPine (NORVASC) 10 mg tablet Take 1 tablet by mouth once daily. - isosorbide mononitrate ER (IMDUR) 30 mg 24 hr tablet Take 1 tablet by mouth once daily. - ezetimibe (ZETIA) 10 mg tablet Take 1 tablet by mouth once daily. - ranolazine SR (RANEXA) 1,000 mg tab ER 12 hr Take 1 tablet by mouth twice daily. - nitroglycerin subling (more content not included)... Normal [facility] CNOVon 03-01-2024 CNOV Office Visit (CARDFV ) ----- YANI GERARD ([id number]) 1940 F Date Time Provider Department 03/01/24 2:30 PM [facility] During your visit today, we recorded the following information about you: Referring Provider: RADHA ZARAGOZA [[id number]] Allergies As of Date: 03/01/2024 Noted Allergy Reaction ROPINIROLE 10/11/2021 14 - Other: See Comments Comments: Other reaction(s): nausea/dizziness, blurry vision [id number] REDUCTASE INHIBIT*04/26/2019 14 - Other: See Comments SULFA (SULFONAMIDE ANTIBIOTICS) 09/15/2005 2 - Rash Date Reviewed: 02/26/2024 Reviewed by: Jayden Burks MD - Fully Assessed Primary Visit Diagnosis:Coronary artery disease involving bad [place] band coronary artery of bad river band heart without angina pectoris [I25.10] Order(s):[] regadenoson 0.4 mg injection (LEXISCAN)Disp: Rfl: Prescriptions as of 03/06/2024 - furosemide (LASIX) 20 mg tablet Take 1 tablet by mouth once daily. - evolocumab (REPATHA SURECLICK) 140 mg/mL pen injector Inject 140 mg subcutaneously as directed. Inject 1 pen subcu every 2 wks - metoprolol succinate ER (TOPROL XL) 50 mg 24 hr tablet Take 0.5 tablet by mouth once daily. - losartan (COZAAR) 25 mg tablet Take 2 tablets by mouth two times a day. - levothyroxine (SYNTHROID) 50 mcg tablet Take 1 tablet by mouth daily at 6:00 am. Patient should start on December 12, 2023. - INV VITAMIN D3 5000 UNITS CAPSULE (IRB 19-1548) Take 5,000 Units by mouth once daily. For Investigational Drug Use Only. PI: Stevan Lozoya, PhD. Take one capsule by mouth daily for 3 months prior to surgery and 3 months after surgery. - cyanocobalamin (VITAMIN B-12) 1,000 mcg tab Take 1,000 mcg by mouth once daily. - biotin 1 mg cap Take by mouth. - omega 4-dlh-qme-fish oil 1,000 mg (250 mg-750 mg)/5 mL liqd Take by mouth. - clopidogrel (PLAVIX) 75 mg tablet Take 75 mg by mouth once daily. - Magnesium 200 mg tab Take 2 tablets by mouth once daily. - aspirin 81 mg chewable tablet Aspirin Active 81 MG PO Daily March 27, 2019 11:00pm - amLODIPine (NORVASC) 10 mg tablet Take 1 tablet by mouth once daily. - isosorbide mononitrate ER (IMDUR) 30 mg 24 hr tablet Take 1 tablet by mouth once daily. - ezetimibe (ZETIA) 10 mg tablet Take 1 tablet by mouth once daily. - ranolazine SR (RANEXA) 1,000 mg tab ER 12 hr Take 1 tablet by mouth twice daily. - nitroglycerin sublingual (NITROQUICK) 0.3 mg SL tablet Dissolve 1 tablet under the tongue every 5 minutes as needed for chest pain. - eopangasuvk-nhamabnsq-oml anter (TRELEGY ELLIPTA) 100-62.5-25 mcg inhalation powder Inhale 1 Puff as instructed as needed. - cholecalciferol, vitamin D3, (VITAMIN D3 ORAL) Take by mouth. - Ascorbic Acid (VITAMIN C) 100 mg tablet Take 100 mg by mouth once daily. - acetaminophen 650 mg CR tablet Take 650 mg by mouth every 8 hours as needed. - pramipexole (MIRAPEX) 0.5 mg tablet Take 0.25 mg by mouth two times a day. Facility-Administered Medications as of 03/06/2024 - perflutren lipid microspheres 1.3 mL in NaCl (PF) 0.9% 10 mL injection (DEFINITY) - sodium chloride 0.9 % (flush) 10 mL (BD POSIFLUSH) Problem List As Of Date 03/01/2024 Noted Resolved ACTINIC KERATOSIS [L57.0] 07/22/2008 SEBACEOUS GLAND DIS NEC [L73.8] 07/22/2008 HTN (hypertension) [I10] 06/11/2014 Hyperlipidemia [E78.5] 06/11/2014 Statin myopathy (HCC) [G72.0, T46.6X5A] 06/11/2014 Preoperative cardiovascular examination [Z01.81*05/27/2015 CAD (coronary artery disease) [I25.10] 05/27/2015 Dizziness [R42] 09/24/2018 05/20/2021 Abnormality of gait [R26.9] 10/03/2018 Benign paroxysmal positional vertigo of right e*10/03/2018 05/20/2021 Clear Outcomes Study, PI: Eva Fischer MD [Z00.6]10/04/2018 Lumbar back pain with radiculopathy affecting l*03/21/2019 05/20/2021 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 Normal [facility] Office Visit (CARDFV ) ----- YANI GERARD ([id number]) 1940 F Date Time Provider Department 03/01/24 12:30 PM NUCLEAR STUDY [facility] CARD[facility] During your visit today, we recorded the following information about you: Nona Kearns RT(R) 03/01/2024 1:57 PM Signed RADIOLOGY SERVICE PROGRESS NOTE SERVICE DATE: 03/01/2024 SERVICE TIME: 12:34 PM PATIENT IDENTITY VERIFICATION COMPLETED USING TWO (2) STANDARD IDENTIFIERS: Name and Date of confirmed by patient verbally FALL SCREENING: Has the patient had 2 falls in the last year or 1 fall with injury or currently using an Ambulatory Assistive Device (Walker, Cane, Wheelchair, Crutches, etc.)? No PATIENT GENDER DATA: .female : No ALLERGIES: Reviewed and unchanged MEDICATIONS REVIEWED: Yes PATIENT RELEVANT IMPLANT DATA REVIEWED: Not Applicable IV SITE: Ambulatory: A peripheral IV was started in the Right antecubital site with a Angio cath: 22 gauge. POST EXAM PIV STATUS: Discontinued PROCEDURE TYPE: ND Stress: 13.5mCi [id number] was administered IV for Rest Imaging at 1230 by RT Ventura(R). 36 mCi [id number]-Hsjqnom was administered IV for Stress Imaging at 1320 by RT Ventura(R). PATIENT DISCHARGED TO: Ambulatory patient, left ND department area. A Diagnostic radioactive procedure has taken place, with no further precautions necessary other than routine body substance precautions. More information regarding radiation safety can be found using this link: [email or web address]-- %[email or web address]%[email or web address] [email or web address] f SIGNATURE: RT Ventura(R) PATIENT NAME: Yani Gerard DATE: March 01, 2024 TIME: 12:34 PM PAGER/CONTACT #: Referring Provider: RADHA ZARAGOZA [[id number]] Allergies As of Date: 03/01/2024 Noted Allergy Reaction ROPINIROLE 10/11/2021 14 - Other: See Comments Comments: Other reaction(s): nausea/dizziness, blurry vision KZDALGA-XJQ-XCY REDUCTASE INHIBIT*04/26/2019 14 - Other: See Comments SULFA (SULFONAMIDE ANTIBIOTICS) 09/15/2005 2 - Rash Date Reviewed: 02/26/2024 Reviewed by: Jayden Burks MD - Fully Assessed Reason for Visit: Radiology NM [1489] Visit Diagnosis:Encounter for screening for cardiovascular disorders [Z13.6] Order(s):ND CARDIAC PERF STRESS/PHARM [[id number]] Order #: [id number] Prescriptions as of 03/01/2024 - furosemide (LASIX) 20 mg tablet Take 1 tablet by mouth once daily. - evolocumab (REPATHA SURECLICK) 140 mg/mL pen injector Inject 140 mg subcutaneously as directed. Inject 1 pen subcu every 2 wks - metoprolol succinate ER (TOPROL XL) 50 mg 24 hr tablet Take 0.5 tablet by mouth once daily. - losartan (COZAAR) 25 mg tablet Take 2 tablets by mouth two times a day. - levothyroxine (SYNTHROID) 50 mcg tablet Take 1 tablet by mouth daily at 6:00 am. Patient should start on December 12, 2023. - INV VITAMIN D3 5000 UNITS CAPSULE (IRB 19-1548) Take 5,000 Units by mouth once daily. For Investigational Drug Use Only. PI: Stevan Lozoya, PhD. Take one capsule by mouth daily for 3 months prior to surgery and 3 months after surgery. - cyanocobalamin (VITAMIN B-12) 1,000 mcg tab Take 1,000 mcg by mouth once daily. - biotin 1 mg cap Take by mouth. - omega 3-rlp-iwx-fish oil 1,000 mg (250 mg-750 mg)/5 mL liqd Take by mouth. - clopidogrel (PLAVIX) 75 mg tablet Take 75 mg by mouth once daily. - Magnesium 200 mg tab Take 2 tablets by mouth once daily. - aspirin 81 mg chewable tablet Aspirin Active 81 MG PO Daily March 27, 2019 11:00pm - amLODIPine (NORVASC) 10 mg tablet Take 1 tablet by mouth once daily. - isosorbide mononitrate ER (IMDUR) 30 mg 24 hr tablet Take 1 tablet by mouth once daily. - ezetimibe (ZETIA) 10 mg tablet Take 1 tablet by mouth once daily. - ranolazine SR (RANEXA) 1,000 mg tab ER 12 hr Take 1 tablet by mouth twice daily. - nitroglycerin sublingual (NITROQUICK) 0.3 mg SL tablet Dissolve 1 tablet under the tongue every 5 minutes as needed for chest pain. - atollfbgvhf-rkqtgroxe-zcy anter (TRELEGY ELLIPTA) 100-62.5-25 mcg inhalation powder Inhale 1 Puff as instructed as needed. - cholecalciferol, vitamin D3, (VITAMIN D3 ORAL) Take by mouth. - Ascorbic Acid (VITAMIN C) 100 mg tablet Take 100 mg by mouth once daily. - acetaminophen 650 mg CR tablet Take 650 mg by mouth every 8 hours as needed. - pramipexole (MIRAPEX) 0.5 mg tablet Take 0.25 mg by mouth two times a day. Facility-Administered Medications as of 03/01/2024 - perflutren lipid microspheres 1.3 mL in NaCl (PF) 0.9% 10 mL injection (DEFINITY) - sodium chloride 0.9 % (flush) 10 mL (BD POSIFLUSH) Problem List As Of Date 03/01/2024 Noted Resolved ACTINIC KERATOSIS [L57.0] 07/22/2008 SEBACEOUS GLAND DIS NEC [L73.8] 07/22/2008 HTN (hypertension) [I10] 06/11/2014 Hype (more content not included)... Normal [facility] CARDIAC PERF STRESS/PHARM on 03-01-2024 NM CARDIAC PERF STRESS/PHARM * * *Final Report* * * DATE OF EXAM: Mar 01 2024 1:58PM N 0006 - NM CARDIAC PERF STRESS/PHARM / PROCEDURE REASON: screening * * * * Physician Interpretation * * * * Stress Chemistry Technician Report: [facility] Office Date of service: 03/01/2024 12:30:00 PM Supervising physician: Nelly Cazares MD PATIENT: Name: MRS. YANI GERARD Age: 83 years Gender: F The supervising physician was in the department and immediately available. * * * Final * * * PATIENT: Name: MRS. YANI GERARD Age: 83 years Gender: F CONCLUSIONS: 1. SPECT Perfusion Study: Normal. 2. There is no scintigraphic evidence for inducible ischemia. 3. No evidence of scarred myocardium. 4. Left ventricle is normal in size. The left ventricle systolic function is normal. 5. Right ventricle is normal in size. The right ventricle systolic function is normal. 6. This is a low risk scan. Gated Stress FBP LVEF % 69 Prior Study Comparison Prior nuclear cardiology exam was performed on 05/30/22. Nuclear Med Report:1-Day Gated SPECT Myocardial Perfusion with Regadenoson Stress: Myocardial perfusion imaging was performed at rest 30 minutes following the IV injection of the radiotracer. The patient received 0.4 mg of regadenoson, via rapid IV push, immediately followed by radiotracer IV. Gated post stress tomographic imaging was performed 30 to 60 minutes later. See administered radiotracer and doses below. [facility] Office Date of service: 03/01/2024 12:30:00 PM Ordering Physician: RADHA ZARAGOZA. Requesting Physician: Indication: Assessment for suspected CAD Interpreting physician: Oscar Robles MD Previous Cardiovascular Interventions: Diagnostic cath (2022) PCI (2022) Height: 154.94 cm BSA: 1.78 m? Weight: 73.94 kg BMI: 30.8 kg/m? Imaging Protocol Limitation Reason G.I. uptake. Exam Type: Rest Stress Radiopharm: Tc-99m Tetrofosmin Tc-99m Tetrofosmin Dosage(mCi): 13.5 36 Stress Agent: Regadenoson 0.4mg Supply provided from [facility] Resting Blood Press: 157/72 mmHg Image Quality The overall study imaging quality was deemed to be fair. The following technical issues were noted: G.I. uptake. FINDINGS: Stress IR:3D Gated Stress FBP LVEF: 69 % ED Volume: 87 ml ES Volume: 27 ml TID: 1.00 Perfusion Findings Stress IR:3D - Summed Score=0 All segments demonstrate normal perfusion. Rest IR:3D - Summed Score=0 All segments demonstrate normal perfusion. Stress IR:3D Rest IR:3D Summed Score=0 Summed Score=0 LEFT VENTRICLE The left ventricle is normal in size. Left ventricular systolic function is normal. Right Ventricle The right ventricle is normal in size. Right ventricle systolic function is normal. Stress Test Findings: There is no scintigraphic evidence for inducible ischemia. There is no evidence of scarring. * * * Final * * * Stress ECG Report: [facility] Office Date of service: 03/01/2024 12:30:00 PM Ordering physician: RADHA ZARAGOZA industrial relations specialist: Clarence Floyd Linoleum Layer Helper: Lisandra Middleton RN Interpreting physician: Nelly Cazares MD Patient name: MRS. YANI GERARD Age: 83 years Gender: F Height: 154.94 cm BSA: 1.78 m? Weight: 73.94 kg BMI: 30.8 kg/m? Indication: Encounter for screening for cardiovascular disorders Stress ECG Conclusion: Conclusion: Normal Prior exam comparison: No significant changes except for increase in ectopy Stress ECG Summary: The patient's resting heart rate was 60 bpm and blood pressure was 157/72 mmHg. The test was terminated due to end of protocol. No symptoms provoked during stress. Previous cardiovascular interventions: Diagnostic cath (2022) PCI (2022) Medications: Last Used TOPROL XL COZAAR IMDUR NORVASC RANEXA Resting ECG: Normal Sinus Rhythm and Rare PACs (<3/Min) Symptoms at rest: No symptoms Pharamcologic Protocol: Regadenoson Stress Exercise Table: +-----+--+---+---+ Stage HR SYS LEOPOLDO +-----+--+---+---+ 1 75 +-----+--+---+---+ 2 86 113 65 +-----+--+---+---+ 3 83 +-----+--+---+---+ 4 80 129 63 +-----+--+---+---+ ++--+ HR ++--+ +------+ + Stage Arrhythmias +------+ + 1 Rare PAC (<3/min) +------+ + 2 Isotope Injection, Regadenoson Injection and Occas P (more content not included)... 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 - methylPREDNISolone (MEDROL DOSE-PACK) 4 mg Dose-Pack follow package directions - omeprazole (PRILOSEC) 40 mg capsule TAKE 1 CAPSULE BY MOUTH ONCE DAILY 30 MINUTES before morning meal - ondansetron (ZOFRAN) 4 mg tablet TAKE 2 TABLETS BY MOUTH TWICE DAILY as directed for 14 days - oxybutynin XL (DITROPAN XL) 5 mg 24 hr tablet 5 mg. - oxyCODONE IR (ROXICODONE) 5 mg immediate release tablet Take 5 mg by mouth every 4 hours as needed. - ibuprofen (MOTRIN ORAL) Take by mouth. - furosemide (LASIX) 40 mg tablet Take 1 tablet by mouth two times a day. - pregabalin (LYRICA) 25 mg capsule Take 1 capsule by mouth two times a day for 90 days. - diclofenac (VOLTAREN ARTHRITIS PAIN) 1 % topical gel Apply 4 g to affected area four times daily. - methocarbamol (ROBAXIN) 750 mg tablet Take 1 tablet by mouth four times a day as needed. - ranolazine SR (RANEXA) 1,000 mg tab ER 12 hr Take 1 tablet by mouth two times a day. - potassium chloride ER (KLOR-CON) 20 mEq tablet Take 1 tablet by mouth once daily. - evolocumab (REPATHA SURECLICK) 140 mg/mL pen injector Inject 140 mg subcutaneously as directed. Inject 1 pen subcu every 2 wks - metoprolol succinate ER (TOPROL XL) 50 mg 24 hr tablet Take 0.5 tablet by mouth once daily. - levothyroxine (SYNTHROID) 50 mcg tablet Take 1 tablet by mouth daily at 6:00 am. Patient should start on December 12, 2023. - INV VITAMIN D3 5000 UNITS CAPSULE (IRB 19-1548) Take 5,000 Units by mouth once daily. For Investigational Drug Use Only. PI: Stevan Lozoya, PhD. Take one capsule by mouth daily for 3 months prior to surgery and 3 months after surgery. - cyanocobalamin (VITAMIN B-12) 1,000 mcg tab Take 1,000 mcg by mouth once daily. - biotin 1 mg cap Take by mouth. - omega 5-nvb-xgp-fish oil 1,000 mg (250 mg-750 mg)/5 mL liqd Take by mouth. - Magnesium 200 mg tab Take 2 tablets by mouth once daily. - aspirin 81 mg chewable tablet Aspirin Active 81 MG PO Daily March 27, 2019 11:00pm - isosorbide mononitrate ER (IMDUR) 30 mg 24 hr tablet Take 1 tablet by mouth once daily. - ezetimibe (ZETIA) 10 mg tablet Take 1 tablet by mouth once daily. - nitroglycerin sublingual (NITROQUICK) 0.3 mg SL tablet Dissolve 1 tablet under the tongue every 5 minutes as needed for chest pain. - nfowhquloly-pnlfnyles-lfz anter (TRELEGY ELLIPTA) 100-62.5-25 mcg inhalation powder Inhale 1 Puff as instructed as needed. - cholecalciferol, vitamin D3, (VITAMIN D3 ORAL) Take by mouth. - Ascorbic Acid (VITAMIN C) 100 mg tablet Take 100 mg by mouth once daily. - acetaminophen 650 mg CR tablet Take 650 mg by mouth every 8 hours as needed. - pramipexole (MIRAPEX) 0.5 mg tablet Take 0.25 mg by mouth two times a day. 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 Allergies As of Date: 02/27/2024 Noted Allergy Reaction ROPINIROLE 10/11/2021 14 - Other: See Comments Comments: Other reaction(s): nausea/dizziness, blurry vision SXAOBIS-OGB-HGR REDUCTASE INHIBIT*04/26/2019 14 - Other: See Comments SULFA (SULFONAMIDE ANTIBIOTICS) 09/15/2005 2 - Rash Date Reviewed: 02/26/2024 Reviewed by: Jayden Burks MD - Fully Assessed Reason for Visit: Results [95] Prescriptions as of 02/27/2024 - furosemide (LASIX) 20 mg tablet Take 1 tablet by mouth once daily. - evolocumab (REPATHA SURECLICK) 140 mg/mL pen injector Inject 140 mg subcutaneously as directed. Inject 1 pen subcu every 2 wks - metoprolol succinate ER (TOPROL XL) 50 mg 24 hr tablet Take 0.5 tablet by mouth once daily. - losartan (COZAAR) 25 mg tablet Take 2 tablets by mouth two times a day. - levothyroxine (SYNTHROID) 50 mcg tablet Take 1 tablet by mouth daily at 6:00 am. Patient should start on December 12, 2023. - INV VITAMIN D3 5000 UNITS CAPSULE (IRB 19-1548) Take 5,000 Units by mouth once daily. For Investigational Drug Use Only. PI: Stevan Lozoya, PhD. Take one capsule by mouth daily for 3 months prior to surgery and 3 months after surgery. - cyanocobalamin (VITAMIN B-12) 1,000 mcg tab Take 1,000 mcg by mouth once daily. - biotin 1 mg cap Take by mouth. - omega 2-evl-zwg-fish oil 1,000 mg (250 mg-750 mg)/5 mL liqd Take by mouth. - clopidogrel (PLAVIX) 75 mg tablet Take 75 mg by mouth once daily. - Magnesium 200 mg tab Take 2 tablets by mouth once daily. - aspirin 81 mg chewable tablet Aspirin Active 81 MG PO Daily March 27, 2019 11:00pm - amLODIPine (NORVASC) 10 mg tablet Take 1 tablet by mouth once daily. - isosorbide mononitrate ER (IMDUR) 30 mg 24 hr tablet Take 1 tablet by mouth once daily. - ezetimibe (ZETIA) 10 mg tablet Take 1 tablet by mouth once daily. - ranolazine SR (RANEXA) 1,000 mg tab ER 12 hr Take 1 tablet by mouth twice daily. - nitroglycerin sublingual (NITROQUICK) 0.3 mg SL tablet Dissolve 1 tablet under the tongue every 5 minutes as needed for chest pain. - lszhhieucjg-eqwcuggga-vgn anter (TRELEGY ELLIPTA) 100-62.5-25 mcg inhalation powder Inhale 1 Puff as instructed as needed. - cholecalciferol, vitamin D3, (VITAMIN D3 ORAL) Take by mouth. - Ascorbic Acid (VITAMIN C) 100 mg tablet Take 100 mg by mouth once daily. - acetaminophen 650 mg CR tablet Take 650 mg by mouth every 8 hours as needed. - pramipexole (MIRAPEX) 0.5 mg tablet Take 0.25 mg by mouth two times a day. 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] 06/11/2014 Preoperative cardiovascular examination [Z01.81*05/27/2015 CAD (coronary artery disease) [I25.10] 05/27/2015 Dizziness [R42] 09/24/2018 05/20/2021 Abnormality of gait [R26.9] 10/03/2018 Benign paroxysmal positional vertigo of right e*10/03/2018 05/20/2021 Clear Outcomes Study, PI: Eva Fischer MD [Z00.6]10/04/2018 Lumbar back pain with radiculopathy affecting l*03/21/2019 05/20/2021 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1] 12/09/2023 Nonintractable episodic headache [R51.9] 12/10/2023 12/11/2023 Seizure-like activity (HCC) [R56.9] 12/30/2023 12/31/2023 Bradycardia [R00.1] 12/31/2023 Atherosclerosis of aorta (HCC) [I70.0] 02/12/2024 Encounter Status:Closed by GUS PRO on 02/27/24 Normal [facility] Basic metabolic 2000 panelon 02-26-2024 Anion gap [Moles/Vol] 12 mmol/L Normal 9-18 [facility] Comment on above: Order Comment: Speci men Type: BLOOD SPECIMENOrdering Facility: [facility] Address: [address] [place] [address] Performed By: #### 2 4321-2 ####[facility] LABCLIA [id number] [place] [address] [place] Calcium [Mass/Vol] 9.4 mg/dL Normal 8.5-10.2 [facility] Comment on above: Order Comment: Speci men Type: BLOOD SPECIMENOrdering Facility: [facility] Address: [address] [place] [address] Performed By: #### 2 4321-2 ####[facility] LABCLIA [id number] [place] [id number] [place] Chloride [Moles/Vol] 102 mmol/L Normal 97-105 [facility] Comment on above: Order Comment: Speci men Type: BLOOD SPECIMENOrdering Facility: [facility] Address: [address] [place] [address] Performed By: #### 2 4321-2 ####[facility] LABCLIA [id number] [place] [address] [place] CO2 [Moles/Vol] 24 mmol/L Normal 22-30 [facility] Comment on above: Order Comment: Speci men Type: BLOOD SPECIMENOrdering Facility: [facility] Address: [address] [place] [address] Performed By: #### 2 4321-2 ####[facility] [id number] [place] [address] [place] Creatinine [Mass/Vol] 0.79 mg/dL Normal 0.58-0.96 [facility] Comment on above: Order Comment: Speci men Type: BLOOD SPECIMENOrdering Facility: [facility] Address: [address] [place] [address] Performed By: #### 2 4321-2 ####[facility] [id number] [place] [address] [place] Creatinine and Glomerular filtration rate.predicted panel (S/P/Bld) 74 mL/min/1.73m??? Normal >=60 [facility] Comment on above: Order Comment: Speci men Type: BLOOD SPECIMENOrdering Facility: [facility] Address: [address] [place] [address] Result Comment: Mallika mated Glomerular Filtration Rate (eGFR) is calculated using the 2020 CKD-EPI creatinine equation. This equation utilizes serum creatinine, sex, and age as parameters. The creatinine assay has traceable calibration to isotope dilution-mass spectrometry. Refer to KDIGO guidelines for clinical interpretation. In patients with unstable renal function, e.g. those with acute kidney injury, the eGFR may not accurately reflect actual GFR. Performed By: #### 2 4321-2 ####[facility] [id number] [place] [address] [place] Glucose [Mass/Vol] 93 mg/dL Normal 74-99 [facility] Comment on above: Order Comment: Speci men Type: BLOOD SPECIMENOrdering Facility: [facility] Address: [address] [place] [id number] Result Comment: The [place] [employer] (ADA) provides guidance for cutoff values for fasting glucose and random glucose. The ADA defines fasting as no caloric intake for at least 8 hours. Fasting plasma glucose results between 100 to 125 mg/dL indicate increased risk for diabetes (prediabetes). Fasting plasma glucose results greater than or equal to 126 mg/dL meet the criteria for diagnosis of diabetes. In the absence of unequivocal hyperglycemia, results should be confirmed by repeat testing. In a patient with classic symptoms of hyperglycemia or hyperglycemic crisis, random plasma glucose results greater than or equal to 200 mg/dL meet the criteria for diagnosis of diabetes. Reference: Standards of Medical Care in Diabetes 2016, [place] [employer]. Diabetes Care. 2016.39(Suppl 1). Performed By: #### 2 4321-2 ####[facility] LABCLIA [id number] [place] [address] [place] Potassium [Moles/Vol] 4.2 mmol/L Normal 3.7-5.1 [facility] Comment on above: Order Comment: Speci men Type: BLOOD SPECIMENOrdering Facility: [facility] Address: [address] [place] [id number] Performed By: #### 2 432-2 ####[facility] LABCLIA [id number] [place] [address] [place] Sodium [Moles/Vol] 138 mmol/L Normal 136-144 [facility] Comment on above: Order Comment: Speci men Type: BLOOD SPECIMENOrdering Facility: [facility] Address: [address] [place] [id number] Performed By: #### 2 4321-2 ####[facility] LABCLIA [id number] [place] [address] [place] Urea nitrogen [Mass/Vol] 21 mg/dL Normal 7-21 [facility] Comment on above: Order Comment: Speci men Type: BLOOD SPECIMENOrdering Facility: [facility] Address: [address] [place] [id number] Performed By: #### 2 4321-2 ####[facility] LABMIGUEL ANGEL [id number] [address] STATES OF [facility] CNOVon 02-26-2024 CNOV Office Visit (NEADFV ) ----- YANI GERARD ([id number]) 1940 F Date Time Provider Department 02/26/24 11:00 AM JAYDEN BURKS During your visit today, we recorded the following information about you: Pulse Blood pressure Weight Height 64/minute 149/74 73.9 kg 1.549 m Jayden Burks MD 02/26/2024 7:18 PM Signed She is seen in follow-up because of a history of relatively stereotyped episodic alteration of behavior and movement. Prolonged video EEG monitoring has failed to demonstrate a definite cerebral electrographic correlate to this phenomenon. The input of Dr. Dior is appreciated. The laboratory studies were unremarkable. She continues to experience vertigo/imbalance with weightbearing although my overall sense is that this is not quite as prominent as previously noted. Today on examination she is awake, alert, pleasant, cooperative and coherent. Her stance is minimally/mildly wide-based and the gait just a bit ataxic. There is at most borderline rombergism. Cranial Nerves: II-visual mario full III IV -extraocular movements normal VII-muscles of facial expression normal in power bilaterally Motor System: The tendon reflexes are symmetric. Other Observations: The Quix maneuver and Past Pointing test are negative bilaterally. In summary, overall she seems to be doing relatively well. Interestingly on examination I cannot identify any findings consistent with vestibular system dysfunction. After further consideration we will refer her for vestibular physical therapy. A follow-up visit has been scheduled. 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 - evolocumab (REPATHA SURECLICK) 140 mg/mL pen injector Inject 140 mg subcutaneously as directed. Inject 1 pen subcu every 2 wks - metoprolol succinate ER (TOPROL XL) 50 mg 24 hr tablet Take 0.5 tablet by mouth once daily. - losartan (COZAAR) 25 mg tablet Take 2 tablets by mouth two times a day. - levothyroxine (SYNTHROID) 50 mcg tablet Take 1 tablet by mouth daily at 6:00 am. Patient should start on December 12, 2023. - INV VITAMIN D3 5000 UNITS CAPSULE (IRB 19-1548) Take 5,000 Units by mouth once daily. For Investigational Drug Use Only. PI: Stevan Lozoya, PhD. Take one capsule by mouth daily for 3 months prior to surgery and 3 months after surgery. - cyanocobalamin (VITAMIN B-12) 1,000 mcg tab Take 1,000 mcg by mouth once daily. - biotin 1 mg cap Take by mouth. - omega 0-iel-bur-fish oil 1,000 mg (250 mg-750 mg)/5 mL liqd Take by mouth. - clopidogrel (PLAVIX) 75 mg tablet Take 75 mg by mouth once daily. - Magnesium 200 mg tab Take 2 tablets by mouth once daily. - aspirin 81 mg chewable tablet Aspirin Active 81 MG PO Daily March 27, 2019 11:00pm - amLODIPine (NORVASC) 10 mg tablet Take 1 tablet by mouth once daily. - isosorbide mononitrate ER (IMDUR) 30 mg 24 hr tablet Take 1 tablet by mouth once daily. - ezetimibe (ZETIA) 10 mg tablet Take 1 tablet by mouth once daily. - ranolazine SR (RANEXA) 1,000 mg tab ER 12 hr Take 1 tablet by mouth twice daily. - nitroglycerin sublingual (NITROQUICK) 0.3 mg SL tablet Dissolve 1 tablet under the tongue every 5 minutes as needed for chest pain. - yjaeexfvoso-hvhnhbrlj-kuu anter (TRELEGY ELLIPTA) 100-62.5-25 mcg inhalation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 #### 2 4323-8, 51647-3, 6-3, 2777-1 ####[facility] [id number] [place] [id number] [place] ALP [Catalytic activity/Vol] 49 U/L Normal 34-123 [facility] Comment on above: Order Comment: Speci men Type: BLOOD SPECIMENOrdering Facility: [facility] Address: [address] [place] [address] Performed By: #### 2 4323-8, 21707-0, 6-3, 2777-1 ####[facility] [id number] [place] [id number] [place] ALT [Catalytic activity/Vol] 13 U/L Normal 7-38 [facility] Comment on above: Order Comment: Speci men Type: BLOOD SPECIMENOrdering Facility: [facility] [facility] Address: [address] [place] [address] Performed By: #### 2 4323-8, 55103-9, 6-3, 2777-1 ####[facility] LABCLIA [id number] [address] [address] [place] Anion gap [Moles/Vol] 10 mmol/L Normal 9-18 [facility] Comment on above: Order Comment: Speci men Type: BLOOD SPECIMENOrdering Facility: [facility] Address: [address] [place] [address] Performed By: #### 2 4323-8, 63568-5, 3015-3, 2777-1 ####[facility]CL[facility] [id number] [address] [address] [place] AST [Catalytic activity/Vol] 14 U/L Normal 13-35 [facility] Comment on above: Order Comment: Speci men Type: BLOOD SPECIMENOrdering Facility: [facility] Address: [address] [place] [address] Performed By: #### 2 4323-8, 17950-5, 6-3, 2777-1 ####[facility] [id number] [address] [address] [place] Bilirubin [Mass/Vol] 0.3 mg/dL Normal 0.2-1.3 [facility] Comment on above: Order Comment: Speci men Type: BLOOD SPECIMENOrdering Facility: [facility] Address: [address] [place] [address] Performed By: #### 2 4323-8, 46477-5, 3015-3, 2777-1 ####[facility]CL[facility] [id number] [address] [address] [place] Calcium [Mass/Vol] 9.2 mg/dL Normal 8.5-10.2 [facility] Comment on above: Order Comment: Speci men Type: BLOOD SPECIMENOrdering Facility: [facility] Address: [address] [place] [address] Performed By: #### 2 4323-8, 88934-0, 6-3, 2777-1 ####[facility] [id number] [address] [address] [place] Chloride [Moles/Vol] 104 mmol/L Normal 97-105 [facility] Comment on above: Order Comment: Speci men Type: BLOOD SPECIMENOrdering Facility: [facility] Address: [address] [place] [address] Performed By: #### 2 4323-8, 59522-3, 3015-3, 277-1 ####[facility]IA [id number] [place] [address] [place] CO2 [Moles/Vol] 24 mmol/L Normal 22-30 [facility] Comment on above: Order Comment: Speci men Type: BLOOD SPECIMENOrdering Facility: [facility] Address: [address] [place] [address] Performed By: #### 2 4323-8, 68507-3, 3015-3, 277-1 ####[facility] [id number] [address] [address] [place] Creatinine [Mass/Vol] 0.68 mg/dL Normal 0.58-0.96 [facility] Comment on above: Order Comment: Speci men Type: BLOOD SPECIMENOrdering Facility: [facility] Address: [address] [place] [address] Performed By: #### 2 4323-8, 02858-1, 3015-3, 2777-1 ####[facility] [id number] [address] [address] [place] Creatinine and Glomerular filtration rate.predicted panel (S/P/Bld) 87 mL/min/1.73m??? Normal >=60 [facility] Comment on above: Order Comment: Specgely hdez Type: BLOOD SPECIMENOrdering Facility: [facility] Address: [address] [place] [address] Result Comment: Mallika mated Glomerular Filtration Rate (eGFR) is calculated using the 2020 CKD-EPI creatinine equation. This equation utilizes serum creatinine, sex, and age as parameters. The creatinine assay has traceable calibration to isotope dilution-mass spectrometry. Refer to KDIGO guidelines for clinical interpretation. In patients with unstable renal function, e.g. those with acute kidney injury, the eGFR may not accurately reflect actual GFR. Performed By: #### 2 4323-8, 19779-9, 6-3, 2776-1 ####[facility] LABIA [id number] [place] [address] [place] Glucose [Mass/Vol] 92 mg/dL Normal 74-99 [facility] Comment on above: Order Comment: Maycol hdez Type: BLOOD SPECIMENOrdering Facility: [facility] Address: [address] [place] [address] Result Comment: The [place] [employer] (ADA) provides guidance for cutoff values for fasting glucose and random glucose. The ADA defines fasting as no caloric intake for at least 8 hours. Fasting plasma glucose results between 100 to 125 mg/dL indicate increased risk for diabetes (prediabetes). Fasting plasma glucose results greater than or equal to 126 mg/dL meet the criteria for diagnosis of diabetes. In the absence of unequivocal hyperglycemia, results should be confirmed by repeat testing. In a patient with classic symptoms of hyperglycemia or hyperglycemic crisis, random plasma glucose results greater than or equal to 200 mg/dL meet the criteria for diagnosis of diabetes. Reference: Standards of Medical Care in Diabetes 2016, [place] [employer]. Diabetes Care. 2016.39(Suppl 1). Performed By: #### 2 4323-8, 86443-4, 6-3, 7-1 ####[facility] LABIA [id number] [place] [id number] [place] Potassium [Moles/Vol] 4.2 mmol/L Normal 3.7-5.1 [facility] Comment on above: Order Comment: Speci men Type: BLOOD SPECIMENOrdering Facility: [facility] Address: [address] [place] [address] Performed By: #### 2 4323-8, 43944-6, 3015-3, 2776- ####[facility] [id number] [address] [address] [place] Protein [Mass/Vol] 5.6 g/dL Low 6.3-8.0 [facility] Comment on above: Order Comment: Speci men Type: BLOOD SPECIMENOrdering Facility: [facility] Address: [address] [place] [address] Performed By: #### 2 4323-8, 07261-5, 3, 2776-10 ####[facility] LABIA [id number] [place] [address] [place] Sodium [Moles/Vol] 138 mmol/L Normal 136-144 [facility] Comment on above: Order Comment: Speci men Type: BLOOD SPECIMENOrdering Facility: [facility] Address: [address] [place] [address] Performed By: #### 2 4323-8, 56637-0, 3, 2776-10 ####[facility] LABIA [id number] [place] [address] [place] Urea nitrogen [Mass/Vol] 12 mg/dL Normal 7-21 [facility] Comment on above: Order Comment: Speci men Type: BLOOD SPECIMENOrdering Facility: [facility] Address: [address] [place] [address] Performed By: #### 2 4323-8, 45428-4, 3, 2776- ####[facility] LABIA [id number] [address] [address] [place] HISTORY PHYSICALon 4 HISTORY PHYSICAL HNO ID: [id number] Author: MAXIMILIANO BRIGGS MD Service: Neurology Adult Epilepsy Author Type: Physician Type: H&P Filed: 12/31/2023 10:50 Note Text: NEURO EPILEPSY ADMIT NOTE SERVICE DATE: 12/30/2023 SERVICE TIME: 2:17 PM NIGHT AND WEEKEND COVERAGE: After 5 pm and over the weekends, please page [phone] to contact the epilepsy resident/fellow/provider chief juvenile probation officer ATTENDING PHYSICIAN: Dr. Briggs [facility] UNIT: H71 - Adult Epilepsy Monitoring Unit (EMU) SERVICE: Adult Epilepsy Subjective CHIEF COMPLAINT: episodes of shaking and stuttering Patient Major Comorbidities: HTN, HLD, arrhythmia, hypothyroidism, CAD status post ELIS, RLS, BPPV PRESENT ILLNESS: This is a 83 year old right handed female with past medical history of HTN, HLD, arrhythmia, hypothyroidism, CAD status post ELIS, RLS, BPPV who presents following a recent hospital admission for stereotypic spells of headache, impaired speech, 4 limb motor deficits and abnormal involuntary movements/tremoring prompting recent Hospital admission 12/09-12/11/2023. Admitted to [facility] one month ago for similar events where she was started on Keppra 500mg BID. She did have a concussion without loss of consciousness during her childbearing years. At hospital, EEG showing mild cortical dysfunction in the left frontotemporal region. MRI showing tiny 3 mm T2 hyperintense lesion in the right pituitary gland, unchanged, nonspecific, may be a cyst versus adenoma and few remote lacunar infarcts in the right cerebellar hemisphere,, left lateral thalamus, right lentiform nucleus, and left frontal colin radiata. Keppra was increased to 750mg BID. SEIZURE HISTORY: Excerpted from General Consult Note 12/10/2023 Dr. Main: This is Ms. Yani Gerard a 83 year old female who presented to the [facility] initially with a chief complaint of recurrent neurologic spell. This represents the sixth time she has experienced it since mid September, but fortunately it was also the briefest lasting only 4-1/2 hours as opposed to with the longest being 24 hours. The spells have been fairly stereotypical. She describes it as starting with a midline mild headache associated with nausea and almost immediately thereafter she notices altered speech and motor function. The speech is more of a stuttering than slurring, and word selection is not impaired. She also describes shaking and weakness in the left-sided limbs more intensely than the right side, but all 4 involved. It is not described as a jerky, and there is no impairment in consciousness. There is no tongue biting or incontinence. In addition, although not normal, she can make voluntary movements of the affected limbs with minimal difficulty during these episodes. She was seen by Dr. Burks regarding these episodes and then referred to Dr. Ornelas regarding vertebrobasilar disease, who recommended medical management rather than surgical intervention. She was admitted to the hospital in [facility] approximately 10 days ago for a similar event; she underwent a 20-minute EEG and CT scan, and was started on Keppra 500 mg twice daily. She did have a concussion without loss of consciousness during her childbearing years, and briefly experienced headaches after that, but has not had any persistent headaches, nor did she have any before then. No family history is available and that she is an orphan. Between these episodes, there are no neurologic deficits, and she is fully functioning, but she is excessively tired right after these episodes for several hours. Currently she is without neurologic complaints. CURRENT SEIZURE TYPES: Type A: Onset: Oct 14 2023 Aura: starting with dry mouth, nausea, develops midline mild headache Seizure: Starting with dry mouth, nausea, develops midline mild headache and almost immediately thereafter she notices altered speech and motor function. The speech is more of a stuttering than slurring, and word selection is not impaired. She also describes shaking and weakness in the left-sided limbs more intensely than the right side, but all 4 involved. It is not described as a jerky, and there is no impairment in consciousness. There is no tongue biting or incontinence. In addition, although not normal, she can make voluntary movements of the affected limbs with minimal difficulty during these episodes. LLE is harder to raise during this. Duration: First two lasted 24 hours, lately 4-5 hours Frequency: about 10, 6-7 this past week sometimes in a cluster Last seizure: 12/28/22 Trigger: none Postictally: tired for a day, LUNA for an hour or so PREVIOUS EVALUATIONS: MRI Brain 12/10/2013: There is mild generalized parenchymal volume loss. Few remote lacunar infarcts in the right cerebellar hemisphere, left lateral thalamus, right lentiform nucleus, and left frontal colin radiata unchanged. BEM 12/11/2023: This bedside EEG was recorded from [id number] on (more content not included)... Normal [facility] Magnesium SerPl-mCncon 12-29 Magnesium [Mass/Vol] 2.3 mg/dL Normal 1.7-2.3 [facility] Comment on above: Order Comment: Speci men Type: BLOOD SPECIMENOrdering Facility: [facility] Address: [address] [place] [address] Performed By: #### 2 4323-8, 19871-0, 3016-3, 2777-1 ####[facility] LABCLIA [id number] [place] [address] [place] PT panel Coag (PPP)on 2023 INR Coag (PPP) [Relative time] 1.0 {INR} Normal 0.9-1.3 [facility] Comment on above: Order Comment: Speci men Type: BLOOD SPECIMENOrdering Facility: [facility] Address: [address] [place] [address] Result Comment: Nadia min K Antagonist (VKA) Therapeutic Range: INR 2 to 3 (Target INR of 2.5) Note: For patients treated with VKA drugs, such as warfarin, the [place] [employer] 2012 Guideline recommends a therapeutic INR range of 2 to 3 (target INR of 2.5). This recommendation includes high-risk patients with antiphospholipid syndrome with previous arterial or venous thromboembolism, current-generation mechanical or bioprosthetic aortic heart valve replacement. Note: Patients with mechanical aortic valve replacement and additional risk factors for thromboembolic events (atrial fibrillation, previous thromboembolism, LV dysfunction, hypercoagulable conditions) or an older generation mechanical AVR (i.e., ball in-Cage) or any mechanical MVR should have a INR therapeutic range of 2.5 to 3.5 (target INR of 3). Mando GH, et al. Chest 2012, 141:7S-47S Ernie VALDEZ et al. [facility] 2017, 70: 252-289 Performed By: #### 3 4528-0, 43508-1 ####[facility] LABCLIA [id number] [place] [address] [place] PT Coag (PPP) [Time] 10.9 s Normal 9.7-13.0 [facility] Comment on above: Order Comment: Speci men Type: BLOOD SPECIMENOrdering Facility: [facility] Address: [address] [place] [address] Performed By: #### 3 4528-0, 44323-6 ####[facility] LABCLIA [id number] [place] [address] [place] Phosphate SerPl-mCncon 12-29 Phosphate [Mass/Vol] 4.4 mg/dL Normal 2.7-4.8 [facility] Comment on above: Order Comment: Speci men Type: BLOOD SPECIMENOrdering Facility: [facility] Address: [address] [place] [address] Performed By: #### 2 4323-8, 22944-4, 3016-3, 2777-1 ####[facility] LABCLIA [id number] [place] [address] [place] TOX SCREEN ROUT URon 024 Amphetamines Confirm (U) [Mass/Vol] Negative Normal Negative [facility] Comment on above: Order Comment: Speci men Type: URINE SPECIMENOrdering Facility: [facility] Address: [address] [place] [address] Result Comment: Cuto ff threshold at 1000 ng/mL. Performed By: #### U TOX2 ####[facility] LABCLIA [id number] [place] [address] [place] BARBITURATES, URINE Negative Normal Negative [facility] Comment on above: Order Comment: Speci men Type: URINE SPECIMENOrdering Facility: [facility] Address: [address] [place] [address] Result Comment: Cuto ff threshold at 200 ng/mL. Performed By: #### U TOX2 ####[facility] LABCLIA [id number] [place] [address] [place] BENZODIAZEPINES, UR Negative Normal Negative [facility] Comment on above: Order Comment: Speci men Type: URINE SPECIMENOrdering Facility: [facility] Address: [address] [place] [address] Result Comment: Cuto ff threshold at 200 ng/mL. Performed By: #### U TOX2 ####[facility] LABIA [id number] [place] [address] [place] Cannabinoids Screen Ql (U) Negative Normal Negative [facility] Comment on above: Order Comment: Speci men Type: URINE SPECIMENOrdering Facility: [facility] Address: [address] [place] [address] Result Comment: Cuto ff threshold at 50 ng/mL. Performed By: #### U TOX2 ####[facility] LABIA [id number] [place] [address] [place] Cocaine Ql (U) Negative Normal Negative [facility] Comment on above: Order Comment: Speci men Type: URINE SPECIMENOrdering Facility: [facility] Address: [address] [place] [address] Result Comment: Cuto ff threshold at 300 ng/mL. Performed By: #### U TOX2 ####[facility] LABIA [id number] [place] [address] [place] Ethanol (U) [Mass/Vol] <11 Normal <11 [facility] Comment on above: Order Comment: Speci men Type: URINE SPECIMENOrdering Facility: [facility] Address: [address] [place] [address] Performed By: #### U TOX2 ####[facility] LABIA [id number] [place] [address] [place] Opiates Screen Ql (U) Negative Normal Negative [facility] Comment on above: Order Comment: Speci men Type: URINE SPECIMENOrdering Facility: [facility] Address: [address] [place] [address] Result Comment: Cuto ff threshold at 300 ng/mL. Performed By: #### U TOX2 ####[facility] LABIA [id number] [place] [address] [place] oxyCODONE cutoff Screen (U) [Mass/Vol] Negative Normal Negative [facility] Comment on above: Order Comment: Speci men Type: URINE SPECIMENOrdering Facility: [facility] Address: [address] [place] [address] Performed By: #### U TOX2 ####[facility] [id number] [place] [address] [place] Phencyclidine Ql (U) Negative Normal Negative [facility] Comment on above: Order Comment: Speci men Type: URINE SPECIMENOrdering Facility: [facility] Address: [address] [place] [address] Result Comment: Cuto ff threshold at 25 ng/mL. Performed By: #### U TOX2 ####[facility] [id number] [place] [address] [place] TSH SerPl-aCncon 12-30-2023 TSH Qn 2.290 m[IU]/L Normal 0.270-4.200 [facility] Comment on above: Order Comment: Speci men Type: BLOOD SPECIMENOrdering Facility: [facility] Address: [address] [place] [address] Performed By: #### 2 4323-8, 47069-1, 3016-3, 2777-1 ####[facility] [id number] [place] [address] [place] aPTT PPPon 12-30-2023 aPTT Coag (PPP) [Time] 27.6 s Normal 23.0-32.4 [facility] Comment on above: Order Comment: Speci men Type: BLOOD SPECIMENOrdering Facility: [facility] Address: [address] [place], [place] [address] [place] [address] Performed By: #### 3 4528-0, 88351-0 ####[facility] LABCLALONSO [id number] [place] [id number] [place] CNOVon 12-12-2023 CNOV Office Visit ([facility] ) ----- YANI GERARD ([id number]) 1940 F Date Time Provider Department 12/12/23 2:40 PM JAYDEN BURKSFV During your visit today, we recorded the following information about you: Temperature Pulse Blood pressure Weight 98.4 degrees 62/minute 129/56 70.3 kg Height 1.549 m Jaki Higgins Ma 12/12/2023 5:57 PM Signed Jayden Burks MD 12/12/2023 5:57 PM Signed She is seen in follow-up today following a recent hospitalization at [facility] from December 09- December 11, 2023 this because of yet another of her stereotyped spells characterized by shaking of the limbs followed by expressive speech difficulty with a stuttering quality. The spells may last several hours. MRI scan of the brain without contrast was unremarkable and EEG failed to reveal any epileptiform activity. Videos taken by her during her ER evaluation were reviewed today. Today on examination she is awake, alert, pleasant, cooperative and coherent. Cranial Nerves: II-visual mario full III IV -extraocular movements normal VII-muscles of facial expression normal in power bilaterally Motor System: Strength in the deltoids, biceps, triceps, wrist extensors, finger extensors, interossei, iliopsoas, quadriceps, hamstrings, anterior tibialis and toe extensors is normal. There is no significant tendon reflex asymmetry and no Babinski response. In summary, her spells are stereotyped and are certainly not typical of either symptomatic cerebrovascular disease or a paroxysmal phenomenon. After further consideration we have advocated hospital admission for Prolonged Video- EEG monitoring. More precisely one of her typical spells has never been captured during an EEG and this would be important at arriving at a diagnosis. If we are unable to demonstrate a paroxysmal etiology for her spells then we should consider the possibility of an unusual movement disorder perhaps of the type that may be encountered in persons with an underlying rheumatologic disease. We have filed the order for Prolonged Video- EEG Monitoring. Follow-up will be on an as-needed basis. Flaquita Tomlinson RN 12/13/2023 8:11 AM Signed Chart forwarded for EMU referral. Allergies As of Date: 12/12/2023 Noted Allergy Reaction ZETIA (EZETIMIBE) 03/05/2019 17 - Myalgia Comments: Severe muscle pain fingers and legs, discontinued after 5 doses ROPINIROLE 10/11/2021 14 - Other: See Comments Comments: Other reaction(s): nausea/dizziness, blurry vision [id number]-BCG REDUCTASE INHIBIT*04/26/2019 14 - Other: See Comments SULFA (SULFONAMIDE ANTIBIOTICS) 09/15/2005 2 - Rash Date Reviewed: 12/12/2023 Reviewed by: Jayden Burks MD - Fully Assessed Reason for Visit: Follow Up [171] Cmt: TIA's Alteration of Consciousness [Other] Primary Visit Diagnosis:Tremor [R25.1] Other Visit Diagnoses:Alteration of consciousness [R40.4] Speech disturbance, unspecified type [R47.9] Order(s):EEG MONITORING ADULT EMU (24 HOUR WITH VIDEO) [[id number]] Order #: [id number]: 1 FUTURE Prescriptions as of 12/13/2023 - metoprolol succinate ER (TOPROL XL) 50 mg 24 hr tablet Take 1 tablet by mouth once daily. - levETIRAcetam (KEPPRA) 750 mg tablet Take 1 tablet by mouth every 12 hours. Patient should start on December 12, 2023. - levothyroxine (SYNTHROID) 50 mcg tablet Take 1 tablet by mouth daily at 6:00 am. Patient should start on December 12, 2023. - INV VITAMIN D3 5000 UNITS CAPSULE (IRB 19-1548) Take 5,000 Units by mouth once daily. For Investigational Drug Use Only. PI: Stevan Lozoya, PhD. Take one capsule by mouth daily for 3 months prior to surgery and 3 months after surgery. - cyanocobalamin (VITAMIN B-12) 1,000 mcg tab Take 1,000 mcg by mouth once daily. - biotin 1 mg cap Take by mouth. - omega 5-eyu-bmp-fish oil 1,000 mg (250 mg-750 mg)/5 mL liqd Take by mouth. - nitrofurantoin monohydrate and macrocrystal (MACROBID) 100 mg capsule Q12H - clopidogrel (PLAVIX) 75 mg tablet Take 75 mg by mouth once daily. - Magnesium 200 mg tab Take 2 tablets by mouth once daily. - aspirin 81 mg chewable tablet Aspirin Active 81 MG PO Daily March 27, 2019 11:00pm - evolocumab (REPATHA SURECLICK) 140 mg/mL pen injector Inject 140 mg subcutaneously as directed. Inject 1 pen subcu every 2 wks - amLODIPine (NORVASC) 10 mg tablet Take 1 tablet by mouth once daily. - isosorbide mononitrate ER (IMDUR) 30 mg 24 hr tablet Take 1 tablet by mouth once daily. - ezetimibe (ZETIA) 10 mg tablet Take 1 tablet by mouth once daily. - ranolazine SR (RANEXA) 1,000 mg tab ER 12 hr Take 1 tablet by mouth twice daily. - nitroglycerin sublingual (NITROQUICK) 0.3 mg SL tablet Dissolve 1 tablet under the tongue every 5 minutes as needed for chest pain. - bonomfyrutp-hzkpeyozp-ory anter (TRELEGY ELLIPTA) 100-62.5-25 mcg inhalation powder Inhale (more content not included)... Normal [facility] Basic metabolic 2000 panelon 12-11-2023 Anion gap [Moles/Vol] 10 mmol/L Normal 9-18 [facility] Comment on above: Order Comment: Speci men Type: BLOOD SPECIMENOrdering Facility: [facility] Address: [address] [place] [id number] Performed By: #### 2 4321-2, 53165-1 ####[facility] [id number] [place] [address] [place] Calcium [Mass/Vol] 8.9 mg/dL Normal 8.5-10.2 [facility] Comment on above: Order Comment: Speci men Type: BLOOD SPECIMENOrdering Facility: [facility] Address: [address] [place] [address] Performed By: #### 2 4321-2, ####[facility]ORY[facility] [id number] [place] [address] [place] Chloride [Moles/Vol] 104 mmol/L Normal 97-105 [facility] Comment on above: Order Comment: Speci men Type: BLOOD SPECIMENOrdering Facility: [facility] Address: [address] [place] [address] Performed By: #### 2 4320-2, ####[facility] LABORATORYCLIA [id number] [place] [id number] [place] CO2 [Moles/Vol] 27 mmol/L Normal 22-30 [facility] [facility] Comment on above: Order Comment: Speci men Type: BLOOD SPECIMENOrdering Facility: [facility] Address: [address] [address] Performed By: #### 2 4321-2, ####[facility] LABORATORYCLIA [id number] [place] [id number] [place] Creatinine [Mass/Vol] 0.64 mg/dL Normal 0.58-0.96 [facility] Comment on above: Order Comment: Speci men Type: BLOOD SPECIMENOrdering Facility: [facility] Address: [address] [place] [address] Performed By: #### 2 432-2, ####[facility] LABORATORYCLIA [id number] [place] [id number] [place] Creatinine and Glomerular filtration rate.predicted panel (S/P/Bld) 88 mL/min/1.73m??? Normal >=60 [facility] Comment on above: Order Comment: Speci men Type: BLOOD SPECIMENOrdering Facility: [facility] Address: [address] [place] [address] Result Comment: Mallika mated Glomerular Filtration Rate (eGFR) is calculated using the 2020 CKD-EPI creatinine equation. This equation utilizes serum creatinine, sex, and age as parameters. The creatinine assay has traceable calibration to isotope dilution-mass spectrometry. Refer to KDIGO guidelines for clinical interpretation. In patients with unstable renal function, e.g. those with acute kidney injury, the eGFR may not accurately reflect actual GFR. Performed By: #### 2 432-, ####BAY LABORATORYCLIA [id number] [place] [address] [place] Glucose [Mass/Vol] 107 mg/dL High 74-99 [facility] Comment on above: Order Comment: Maycol hdez Type: BLOOD SPECIMENOrdering Facility: [facility] Address: [address] [place] [address] Result Comment: The [place] Diabetes [employer] (ADA) provides guidance for cutoff values for fasting glucose and random glucose. The ADA defines fasting as no caloric intake for at least 8 hours. Fasting plasma glucose results between 100 to 125 mg/dL indicate increased risk for diabetes (prediabetes). Fasting plasma glucose results greater than or equal to 126 mg/dL meet the criteria for diagnosis of diabetes. In the absence of unequivocal hyperglycemia, results should be confirmed by repeat testing. In a patient with classic symptoms of hyperglycemia or hyperglycemic crisis, random plasma glucose results greater than or equal to 200 mg/dL meet the criteria for diagnosis of diabetes. Reference: Standards of Medical Care in Diabetes 2016, [place] [employer]. Diabetes Care. 2016.39(Suppl 1). Performed By: #### 2 4320-11, ####BAY LABORATORYCLIA [id number] [place] [address] [place] Potassium [Moles/Vol] 4.1 mmol/L Normal 3.7-5.1 [facility] Comment on above: Order Comment: Maycol hdez Type: BLOOD SPECIMENOrdering Facility: [facility] Address: [address] [place] [address] Performed By: #### 2 4320-11, ####BAY LABORATORYCLIA [id number] [place] [address] [place] Sodium [Moles/Vol] 141 mmol/L Normal 136-144 [facility] Comment on above: Order Comment: Speci men Type: BLOOD SPECIMENOrdering Facility: [facility] Address: [address] [place] [address] Performed By: #### 2 4321-2, ####BAY LABORATORYCLIA [id number] [place] [id number] [place] Urea nitrogen [Mass/Vol] 16 mg/dL Normal 7-21 [facility] Comment on above: Order Comment: Speci men Type: BLOOD SPECIMENOrdering Facility: [facility] Address: [address] [place] [address] Performed By: #### 2 4321-2, ####BAY LABORATORYCLIA [id number] [place] [address] [place] CBC panel Auto (Bld)on 12-11 Erythrocyte distribution width (RBC) [Ratio] 13.2 % Normal 11.5-15.0 [facility] Comment on above: Order Comment: Speci men Type: BLOOD SPECIMENOrdering Facility: [facility] Address: [address] [place] [address] Performed By: #### 5 8410-2 ####BAY LABORATORYCLIA [id number] [place] [address] [place] Hematocrit (Bld) [Volume fraction] 37.8 % Normal 36.0-46.0 [facility] Comment on above: Order Comment: Speci men Type: BLOOD SPECIMENOrdering Facility: [facility] Address: [address] [place] [address] Performed By: #### 5 8410-2 ####BAY LABORATORYCLIA [id number] [place] [id number] [place] Hemoglobin (Bld) [Mass/Vol] 12.5 g/dL Normal 11.5-15.5 [facility] Comment on above: Order Comment: Speci men Type: BLOOD SPECIMENOrdering Facility: [facility] Address: [address] [place] [address] Performed By: #### 5 8410-2 ####BAY LABORATORYCLIA [id number] [address] [place] [facility] MCH (RBC) [Entitic mass] 33.7 pg Normal 26.0-34.0 [facility] Comment on above: Order Comment: Speci men Type: BLOOD SPECIMENOrdering Facility: [facility] Address: [address] [place] [address] Performed By: #### 5 8410-2 ####BAY LABORATORYCLIA [id number] [place] [address] [place] MCHC (RBC) [Mass/Vol] 33.1 g/dL Normal 30.5-36.0 [facility] Comment on above: Order Comment: Speci men Type: BLOOD SPECIMENOrdering Facility: [facility] Address: [address] [place] [address] Performed By: #### 5 8410-2 ####BAY LABORATORYCLIA [id number] [place] [address] [place] MCV (RBC) [Entitic vol] 101.9 fL High 80.0-100.0 [facility] Comment on above: Order Comment: Speci men Type: BLOOD SPECIMENOrdering Facility: [facility] Address: [address] [place] [address] Performed By: #### 5 8410-2 ####BAY LABORATORYCLIA [id number] [address] [place] Nucleated RBC (Bld) [#/Vol] 10*3/uL Normal <0.01 [facility] Comment on above: Order Comment: Speci men Type: BLOOD SPECIMENOrdering Facility: [facility] Address: [address] [place] [address] Performed By: #### 5 8410-2 ####[facility] LABORATORYCLIA [id number] [address] [place] Platelet mean volume (Bld) [Entitic vol] 11.1 fL Normal 9.0-12.7 [facility] Comment on above: Order Comment: Speci men Type: BLOOD SPECIMENOrdering Facility: [facility] Address: [address] [place] [address] Performed By: #### 5 8410-2 ####[facility] LABORATORYCLIA [id number] [place] [id number] [facility] [place] Platelets (Bld) [#/Vol] 191 10*3/uL Normal 150-400 [facility] Comment on above: Order Comment: Speci men Type: BLOOD SPECIMENOrdering Facility: [facility] Address: [address] [place] [address] Performed By: #### 5 8410-2 ####[facility] LABORATORYCLIA [id number] [place] [id number] [place] RBC (Bld) [#/Vol] 3.71 10*6/uL Low 3.90-5.20 [facility] Comment on above: Order Comment: Speci men Type: BLOOD SPECIMENOrdering Facility: [facility] Address: [address] [place] [address] Performed By: #### 5 8410-2 ####[facility] LABORATORYCLIA [id number] [place] [id number] [facility] WBC (Bld) [#/Vol] 3.42 10*3/uL Low 3.70-11.00 [facility] Comment on above: Order Comment: Speci men Type: BLOOD SPECIMENOrdering Facility: [facility] Address: [address] [place] [address] Performed By: #### 5 8410-2 ####[facility] LABORATORYCLIA [id number] [place] [id number] [facility] CNDSon 12-11-2023 CNDS HNO ID: [id number] Author: PETER MEDINA MD Service: General Internal Medicine Author Type: Physician Type: Discharge Summary Filed: 12/11/2023 18:11 Note Text: DISCHARGE SUMMARY PATIENT NAME: Yani Gerard Code Status: Not on file Highest Readmission Risk Score: 11 The 30 day readmissions risk score is derived from an internally validated risk model which evaluates patient level characteristics, utilization history, medication orders and lab results up until the day of discharge. Patients with a score of 40 or above are considered highest risk for readmission. Specific patient level drivers will be listed at the bottom of the summary. Admission Information Admission Information ADMIT DATE: 12/09/2023 DISCHARGE DATE: 12/11/2023 MY DOCTORS AND MEDICAL TEAM: My Main Hospital Doctor: Peter Medina MD Primary Care Provider: Kyle Amin MD My Medical Team Members: Treatment Team: Attending Provider: Peter Medina MD MY CONDITION AT DISCHARGE: Stable REASON I WAS IN THE HOSPITAL: Strokelike symptoms v.s seizures SUMMARY OF WHAT HAPPENED WHILE I WAS IN THE HOSPITAL: Pt has h/o HTN, HLD and TIA. She came with recurrent headaches associated with bilateral arms and legs and difficulty with speech. EEG did not show any seizure activities. Brain MRI did not reveal any stroke. Neurology recommended to continue DAPT (Plavix and Aspirin) and increase Keppra to 750 mg bid. OTHER PROBLEMS/DIAGNOSIS: Principal Problem (Resolved): Stroke-like symptoms Active Problems: Stenosis of both vertebral arteries Stuttering Left arm weakness Tremor Resolved Problems: Nonintractable episodic headache OPERATIONS PERFORMED WHILE IN THE HOSPITAL: None IMPORTANT TEST/PROCEDURES: No procedures performed TEST RESULTS NOT AVAILABLE AT THIS TIME: No pending results Discharge Disposition Discharge Disposition: Home With Self Care Activity When You Leave the Hospital Resume pre-hospital activity Diet Instructions Resume your pre-hospital diet Follow Up Appointments Follow-Up Appointment Office Number: [phone] When: In 1 week Patient/Parents to call for appointment?: Yes Peter Medina MD [phone] [address] [place] [address] PCP Requested Referral Additional Provider to Provider Information: Ms. Gerard is a 83 year old female with PMH of HTN, CAD (s/p PCI), Paroxysmal atrial fibrillation, and TIA ( on Aspirin, Plavix), ? Seizure disorder ( on Keppra). Recent UTI ( on Macrobid prior to admission). Pt presents with seizure versus stroke symptoms. Pt's HDS, afebrile, SpO2 98% RA. Brain CT: No acute intracranial abnormality - Brain and neck vessels CT shows no LVO in no hemodynamically significant stenosis of extracranial carotid artery. There is moderate vertebral artery stenosis. Nonspecific 1.2 cm left high frontal skin lesion. Neurology c/s the pt . BEM negative for seizures. Recommended to increase in Keppra to 750 mg twice daily, and Follow-up with neurologist Dr. Burks . MRI brain negative for stroke PT c/s recs outpatient PT. Echo showed EF = 70 ? 5% (2D biplane) Grade II left ventricular diastolic dysfunction. Treatment Team: Attending Provider: Petre Medina MD Transitions of Care Critical Issues: NEW BASELINE FOR PATIENT: LABS AND PROCEDURES PENDING AT DISCHARGE: No pending results. FOLLOW-UP APPOINTMENTS ALREADY SCHEDULED WITH A [facility] PROVIDER: Future Appointments Date Time Provider Department Center 12/12/2023 2:40 PM [facility] 02/26/2024 11:00 AM Jayden Burks [facility] 05/22/2024 11:30 AM [facility] ALLERGIES Allergen Reactions Zetia [Ezetimibe] Myalgia Severe muscle pain fingers and legs, discontinued after 5 doses Ropinirole Other: See Comments Other reaction(s): nausea/dizziness, blurry vision Fnvxyrt-Kyw-Dyi Red* Other: See Comments Sulfa (Sulfonamide * Rash DISCHARGE MEDICATION: Medication List CHANGE how you take these medications levETIRAcetam 750 mg tablet Commonly known as: KEPPRA Take 1 tablet by mouth every 12 hours. Patient should start on December 12, 2023. Start taking on: December 12, 2023 What changed: medication strength how much to take levothyroxine 50 mcg tablet Commonly known as: SYNTHROID Take 1 tablet by mouth daily at 6 am. Patient should start on December 12, 2023. Start taking on: December 12, 2023 What changed: medication strength how much to take when to take this CONTINUE taking these medications acetaminophen 650 mg CR tablet amLODIPine 10 mg tablet Commonly known as: NORVASC Take 1 tablet by mouth once daily. aspirin 81 mg chewable tablet biotin 1 mg Cap ezetimibe 10 mg tablet Commonly known as: ZETIA Take 1 tablet by mouth once daily. peiumhmgunf-henoykeal-xld anter 100-62.5-25 mcg inhalation powder Commonly known as: TRELEGY (more content not included)... Normal [facility] CONSULT PROGon 12-11-2023 CONSULT PROG HNO ID: [id number] Author: FRAN MAIN MD Service: Neurology General Author Type: Physician Type: Consult Progress Note Filed: 12/11/2023 15:09 Note Text: NEUROLOGY CONSULT PROGRESS NOTE SERVICE DATE: 12/11/2023 SERVICE TIME: 1215 Current Attending Provider: Peter Medina MD Subjective Interval History: EMR reviewed in detail through last neurology visit. Today, Yani is improved. Although she did have a headache with nausea this morning, there was no alteration in speech, tremor, or weakness, numbness and it resolved with conservative management. Right now she feels back to baseline. Objective Physical Examination: 12/11/23 0416 12/11/23 0812 12/11/23 0940 12/11/23 1225 BP: 133/55 148/58 128/58 Pulse: 60 60 63 Resp: 17 Temp: 36.3 ?C (97.3 ?F) 36.4 ?C (97.5 ?F) 36.6 ?C (97.9 ?F) TempSrc: Oral Oral Oral SpO2: 95% 99% 98% 97% Weight: Height: Neurological: Fully alert. Speech is normal. No facial droop or limb weakness observed. No abnormal involuntary movements. New Labs: WBC (k/uL) Date Value 12/11/2023 3.42 12/10/2023 3.79 12/09/2023 6.55 08/09/2012 6.51 02/17/2010 4.70 05/14/2009 6.4 RBC Date Value 12/11/2023 3.71 m/uL 12/10/2023 3.55 m/uL 12/09/2023 3.96 m/uL 08/09/2012 4.23 m/uL 05/14/2009 4.58 M/uL 01/14/2008 4.47 M/uL Platelet Count (k/uL) Date Value 12/11/2023 191 12/10/2023 191 12/09/2023 226 08/09/2012 252 02/17/2010 212 05/14/2009 264 BUN (mg/dL) Date Value 12/11/2023 16 12/10/2023 15 12/09/2023 15 08/09/2012 22 03/13/2012 15 05/14/2009 16 Creatinine (mg/dL) Date Value 12/11/2023 0.64 12/10/2023 0.65 12/09/2023 0.59 08/09/2012 0.51 03/13/2012 0.50 05/14/2009 0.64 CBC, Coags, BMP, Mg, Phos Recent Labs 12/11/23 0753 12/10/23 0413 12/09/23 1335 INR -- -- <0.9* APTT -- -- 27.4 NA 141 138 135* K 4.1 4.4 4.5 CHLOR 104 103 99 CO2 27 27 26 GLUC 107* 115* 94 CA 8.9 8.5 9.0 MG 2.2 2.3 -- Liver Function, Amylase, AND Lipase BEM Reading: Left temporal slowing but no epileptiform features. DATA: Diagnostic tests reviewed for today's visit: Most recent labs and imaging results. I have had the opportunity to review the images as well as the reports of the neurologic and cerebrovascular studies performed on this patient. In my opinion, the MRI brain is unchanged from the previous study September 2023, with chronic appearing tiny cavitating lesion left frontal white matter, and focal area of increased T2 weighted signal in the white matter of 1 sulcus left frontoparietal region consistent with remote ischemia or injury. I do not claim expertise in interpretation of nonneurologic structures that may be within the imaging windows. Impression/Recommendation s Stereotypic spells of headache, impaired speech, 4 limb motor deficits and abnormal involuntary movements, with variable duration but otherwise nearly identical. The differential diagnosis is a very wide and includes seizure variants, migraine, TIA, and even parkinsonism, but none of these considerations fit her syndrome well; I discussed these considerations at length with patient and her spouse. Because of other atypical features, FND needs to be considered also but felt it was premature to discuss this idea with them. A direct correlate with her vertebrobasilar disease is difficult to maintain. Testing has not shown evidence of epileptiform features or of recent stroke. Continue Plavix and baby aspirin. Will get update on BEM at around 3 PM today, and if still negative for epileptiform features, discontinue and plan for discharge. Increase in Keppra to 750 mg twice daily beginning tonight. encouraged to continue taking brief (1 to 2-minute) videos showing her speech and her abnormal movements if she has future episodes. In response to question from the patient, I indicated that it may not be necessary to bring her back to hospital if she has recurrent episodes of identical (or milder) symptoms. If, however, she has clearly new features such as visual loss, facial droop, or inability to lift an arm or leg, he should in fact bring her back in. Follow-up with Dr. Burks to be rescheduled. Thank you very much for the opportunity for the neurology service to consult for you with regards to this patient. We will not continue to follow this patient, but please feel free to recontact us if additional neurology input is required. Time attestation: 50 minutes was spent today reviewing this patient's chart, performing a neurologic examination, educating the patient's and herself, discussing their care with the managing team, reviewing imaging studies and other ancillary results, and documenting my recommendations. Staff needing to reach me between 8 AM and 5 PM, may dial or page . After 5 PM, page [phone]. SIGNATURE: Fran Main MD Neurohospitalist Silvestre (more content not included)... Normal [facility] ECHO WITH AGITATED SALINE CO NTRASTon 12-11-2023 ECHO WITH AGITATED SALINE CONTRAST Echocardiography Report: Transthoracic Echo [facility] Date of service: 12/11/2023 11:15:11 AM Ordering physician: ATUL ROSENBAUM Indication: TIA Technologist: Suresh Hinojosa [facility] Interpreting physician: Anirudh Rodriguez MD PATIENT: Name: MRS. YANI GERARD : 1940 Age: 83 years Gender: F History of coronary artery disease, arrhythmia, hypertension and dyslipidemia. Primary rhythm: sinus. Height: 154.90 cm BSA: 1.77 m Weight: 73.00 kg BMI: 30.4 kg/m Heart rate 59 bpm Blood pressure 148/58 mmHg Technically difficult exam due to body habitus. Agitated saline was administered to assess source of emboli. Color Doppler was utilized to interrogate the cardiac valves assessed and spectral Doppler was utilized to determine the flow velocities and pressure gradients reported in this exam. MEASUREMENTS: Value Indexed Normal Max aortic dimension 3.5 cm Ao < 3.8 Left atrial volume 81 ml (biplane A-L) 45 ml/m Tyson <= 34 LV ID (diastole) 3.9 cm (2D) 2.21 cm/m LV ID (systole) 2.7 cm (2D) 1.52 cm/m IVS, leaflet tips 1.4 cm (2D) Posterior wall thickness 1.3 cm (2D) Left ventricular mass 202 g (2D) 114 g/m LV stroke volume 54 ml (2D biplane) LVOT stroke volume 66 ml 39 ml/m LV end diastolic volume 76 ml (2D biplane) 42.9 ml/m 29<=EDVi<62 LV end systolic volume 22 ml (2D biplane) 12.7 ml/m Ejection Fraction 70 % (2D biplane) EF > 54 FINDINGS: LEFT VENTRICLE The left ventricle is normal in size. Left ventricular systolic function is normal. Grade II left ventricular diastolic dysfunction. Mitral annular lateral E/e': 16.0. Mitral annular septal E/e': 28.7. Wall Motion: All scored segments are normal. RIGHT VENTRICLE The right ventricle is normal in size. Right ventricular systolic function is normal. RV systolic tissue Doppler velocity is 14.1 cm/s. Tricuspid annular displacement is 2.7 cm. Estimated right ventricular systolic pressure is 32 mmHg consistent with normal pulmonary artery pressures. Estimated right atrial pressure is 3 mmHg based on IVC assessment. LEFT ATRIUM The left atrial cavity is moderately dilated. Pulmonary Veins: The pulmonary venous pattern showed normal systolic flow. RIGHT ATRIUM The right atrial cavity is normal in size. Inferior Vena Cava: The inferior vena cava appears normal measuring 1.9 cm. The vessel decreases greater than 50 percent with inspiration. MITRAL VALVE There is mild (1+) early systolic mitral valve regurgitation. The pressure half time is 61 msec. The peak mitral E/A ratio is 1.20. The average mitral E/e' ratio is 22.3. The mitral flow deceleration time is 211 msec. TRICUSPID VALVE There is mild (1+) tricuspid valve regurgitation. AORTIC VALVE There is mild aortic valve stenosis caused by calcified valve. There is no aortic valve regurgitation. Tricuspid aortic valve. There is mild thickening. There is mild calcification. The peak gradient is 19 mmHg (peak velocity = 215.3 cm/s). The mean gradient is 9 mmHg. The LVOT mean velocity is 63.7 cm/s. The LVOT diameter is 1.9 cm. The aortic VTI is 52.9 cm. The mean velocity in the aortic valve is 139.7 cm/s. The dimensionless valve index is 0.44. AV area is 1.25 cm (0.71 cm /m ) by continuity, VTI. The LVOT stroke volume index is 39 ml/m . PULMONIC VALVE The pulmonic valve was not seen or not interrogated. There is trace pulmonic valve regurgitation. AORTA The visualized aorta is normal in size. Measurements - Aortic valve annulus 1.9 cm. Sinus: 3.4 cm. Sinotubular junction 3.1 cm. Mid ascending aorta 3.5 cm. PULMONARY ARTERIES The pulmonary arteries are unseen or not interrogated. INTERATRIAL SEPTUM There is no evidence of intracardiac shunting as detected by agitated saline contrast with valsalva. CONCLUSIONS: - Technically difficult exam due to body habitus. - Exam indication: TIA - The left ventricle is normal in size. Left ventricular systolic function is normal. EF = 70 5% (2D biplane) Grade II left ventricular diastolic dysfunction. - The right ventricle is normal in size. Right ventricular systolic function is normal. - The left atrial cavity is moderately dilated. - Exam was compared with the prior echocardiographic exam performed on 12-29-2022. Comparable findings. * * * Final * * * [facility] Image : [id number] Normal [facility] Magnesium SerPl-mCncon 12-11 Magnesium [Mass/Vol] 2.2 mg/dL Normal 1.7-2.3 [facility] Comment on above: Order Comment: Speci men Type: BLOOD SPECIMENOrdering Facility: [facility] Address: [address] [place] [address] Performed By: #### 2 4321-2, 61175-0 ####[facility] LABORATORYCLIA [id number] [place] [address] [place] THERAPY NTon 12-11-2023 THERAPY NT HNO ID: [id number] Author: ADINA TIDWELL CCC-MANAGER EMPLOYEE RELATIONS Service: Speech/Swallow Author Type: Speech Language Pathologist Type: Therapy (PT/OT/Speech/Resp) Filed: 12/11/2023 09:49 Note Text: SPEECH THERAPY MISSED VISIT SERVICE DATE: 12/11/2023 SERVICE TIME: 944 ROOM: [place] [address] Patient not seen due to Refused Treatment. Patient reports her speech has returned to baseline. Patient declines evaluation at this time. SIGNATURE: Adina Tidwell CCC-MANAGER EMPLOYEE RELATIONS PATIENT NAME: Yani Gerard DATE: December 11, 2023 TIME: 9:49 AM [facility] THERAPY NT HNO ID: [id number] Author: MITCH JOHNSON OTR/Rozina Service: Occupational Therapy Author Type: Occupational Therapist Type: Therapy (PT/OT/Speech/Resp) Filed: 12/11/2023 07:51 Note Text: Therapy Communication Chart reviewed. Patient appears to be at baseline. The order for this therapy discipline has been discontinued. Please contact the department at [phone] with any questions. [facility] ALLIED HEALTH 12-10-2023 ALLIED HEALTH HNO ID: [id number] Author: REN [place]ANCISCO MRI Tech Service: Radiology Author Type: Enforcement Safety Officer Type: Allied Health Filed: 12/10/2023 12:16 Note Text: Radiology Service Progress Note PATIENT NAME: Yani Gerard DATE OF SERVICE: December 10, 2023 TIME: 12:15 PM PATIENT IDENTITY VERIFICATION COMPLETED USING TWO (2) IDENTIFIERS: Name and Date of confirmed by patient verbally and Name and Date of confirmed by identification band. FALL SCREENING: Has the patient had 2 falls in the last year or 1 fall with injury or currently using an Ambulatory Assistive Device (Walker, Cane, Wheelchair, Crutches, etc.)? Inpatient: Screened on floor PATIENT GENDER DATA: Female. status: : No status: NO. PATIENT RELEVANT IMPLANT DATA REVIEWED: Yes PATIENT PRESENTS WITH AN IMPLANTABLE OR ATTACHED MD SENIOR RESEARCH SCIENTIST: No RADIOLOGY DEPARTMENT: MR; Exam(s) Completed: Head: Routine Brain PERIPHERAL IV DATA: Not applicable SIGNED BY: SAMSON Hannon December 10, 2023 12:15 PM [facility] Basic metabolic 2000 panelon 12-10-2023 Anion gap [Moles/Vol] 8 mmol/L Low 9-18 [facility] Comment on above: Order Comment: Speci men Type: BLOOD SPECIMENOrdering Facility: [facility] Address: [address] [place] [address] Performed By: #### 1 9123-9, 87511-3, [id number] ####BAY LABORATORYCLIA [id number] [place] [address] [place] Calcium [Mass/Vol] 8.5 mg/dL Normal 8.5-10.2 [facility] Comment on above: Order Comment: Speci men Type: BLOOD SPECIMENOrdering Facility: [facility] Address: [address] [place] [id number] Performed By: #### 1 9123-9, 12836-5, [id number] ####BAY LABORATORYCLIA [id number] [place] [id number] [place] Chloride [Moles/Vol] 103 mmol/L Normal 97-105 [facility] Comment on above: Order Comment: Speci men Type: BLOOD SPECIMENOrdering Facility: [facility] Address: [address] [place] [address] Performed By: #### 1 9123-9, 47180-7, [id number] ####BAY LABORATORYCLIA [id number] [place] [id number] [place] CO2 [Moles/Vol] 27 mmol/L Normal 22-30 [facility] Comment on above: Order Comment: Speci men Type: BLOOD SPECIMENOrdering Facility: [facility] Address: [address] [place] [id number] Performed By: #### 1 9123-9, 67575-3, [id number] ####BAY LABORATORYCLIA [id number] [place] [address] [place] Creatinine [Mass/Vol] 0.65 mg/dL Normal 0.58-0.96 [facility] Comment on above: Order Comment: Speci men Type: BLOOD SPECIMENOrdering Facility: [facility] Address: [address] [place] [id number] Performed By: #### 1 9123-9, 93926-8, [id number] ####[facility] LABORATORYCLIA [id number] [place] [address] [place] [facility] Creatinine and Glomerular filtration rate.predicted panel (S/P/Bld) 87 mL/min/1.73m??? Normal >=60 [facility] Comment on above: Order Comment: Maycol hdez Type: BLOOD SPECIMENOrdering Facility: [facility] Address: [address] [place] [address] Result Comment: Mallika mated Glomerular Filtration Rate (eGFR) is calculated using the 2020 CKD-EPI creatinine equation. This equation utilizes serum creatinine, sex, and age as parameters. The creatinine assay has traceable calibration to isotope dilution-mass spectrometry. Refer to KDIGO guidelines for clinical interpretation. In patients with unstable renal function, e.g. those with acute kidney injury, the eGFR may not accurately reflect actual GFR. Performed By: #### 1 9123-9, 89605-4, [id number] ####GARDNER LABORATORYCLIA [id number] [place] [address] [place] [facility] Glucose [Mass/Vol] 115 mg/dL High 74-99 [facility] Comment on above: Order Comment: Maycol hdez Type: BLOOD SPECIMENOrdering Facility: [facility] Address: [address] [place] [address] Result Comment: The [place] Diabetes Association (ADA) provides guidance for cutoff values for fasting glucose and random glucose. The ADA defines fasting as no caloric intake for at least 8 hours. Fasting plasma glucose results between 100 to 125 mg/dL indicate increased risk for diabetes (prediabetes). Fasting plasma glucose results greater than or equal to 126 mg/dL meet the criteria for diagnosis of diabetes. In the absence of unequivocal hyperglycemia, results should be confirmed by repeat testing. In a patient with classic symptoms of hyperglycemia or hyperglycemic crisis, random plasma glucose results greater than or equal to 200 mg/dL meet the criteria for diagnosis of diabetes. Reference: Standards of Medical Care in Diabetes 2016, [place] Diabetes Association. Diabetes Care. 2016.39(Suppl 1). Performed By: #### 1 9123-9, 39644-3, [id number] ####[facility] LABORATORYCLIA [id number] [place] [id number] [place] Potassium [Moles/Vol] 4.4 mmol/L Normal 3.7-5.1 [facility] Comment on above: Order Comment: Speci men Type: BLOOD SPECIMENOrdering Facility: [facility] Address: [address] [place] [address] Performed By: #### 1 9123-9, 52949-1, [id number] ####BAY LABORATORYCLIA [id number] [place] [address] [place] Sodium [Moles/Vol] 138 mmol/L Normal 136-144 [facility] Comment on above: Order Comment: Speci men Type: BLOOD SPECIMENOrdering Facility: [facility] Address: [address] [place] [address] Performed By: #### 1 9123-9, 20773-4, [id number] ####[facility] LABORATORYCLIA [id number] [place] [address] [place] Urea nitrogen [Mass/Vol] 15 mg/dL Normal 7-21 [facility] Comment on above: Order Comment: Speci men Type: BLOOD SPECIMENOrdering Facility: [facility] Address: [address] [place] [address] Performed By: #### 1 9123-9, 03654-6, [id number] ####BAY LABORATORYCLIA [id number] [place] [address] [place] CBC panel Auto (Bld)on 12-10 Erythrocyte distribution width (RBC) [Ratio] 13.3 % Normal 11.5-15.0 [facility] Comment on above: Order Comment: Speci men Type: BLOOD SPECIMENOrdering Facility: [facility] Address: [address] [place] [address] Performed By: #### 5 8410-2 ####GARDNER LABORATORYCLIA [id number] [place] [address] [place] Hematocrit (Bld) [Volume fraction] 35.9 % Low 36.0-46.0 [facility] Comment on above: Order Comment: Speci men Type: BLOOD SPECIMENOrdering Facility: [facility] Address: [address] [place] [address] Performed By: #### 5 8410-2 ####[facility] LABORATORYCLIA [id number] [place] [address] [place] Hemoglobin (Bld) [Mass/Vol] 12.1 g/dL Normal 11.5-15.5 [facility] Comment on above: Order Comment: Speci men Type: BLOOD SPECIMENOrdering Facility: [facility] Address: [address] [place] [address] Performed By: #### 5 8410-2 ####[facility] LABORATORYCLIA [id number] [address] [place] MCH (RBC) [Entitic mass] 34.1 pg High 26.0-34.0 [facility] Comment on above: Order Comment: Speci men Type: BLOOD SPECIMENOrdering Facility: [facility] Address: [address] [place] [address] Performed By: #### 5 8410-2 ####[facility] LABORATORYCLIA [id number] [address] [place] MCHC (RBC) [Mass/Vol] 33.7 g/dL Normal 30.5-36.0 [facility] Comment on above: Order Comment: Speci men Type: BLOOD SPECIMENOrdering Facility: [facility] Address: [address] [place] [address] Performed By: #### 5 8410-2 ####[facility] LABORATORYCLIA [id number] [address] [place] MCV (RBC) [Entitic vol] 101.1 fL High 80.0-100.0 [facility] Comment on above: Order Comment: Speci men Type: BLOOD SPECIMENOrdering Facility: [facility] Address: [address] [place] [address] Performed By: #### 5 8410-2 ####[facility] LABORATORYCLIA [id number] [address] [place] Nucleated RBC (Bld) [#/Vol] 10*3/uL Normal <0.01 [facility] Comment on above: Order Comment: Speci men Type: BLOOD SPECIMENOrdering Facility: [facility] Address: [facility] [place] [address] Performed By: #### 5 8410-2 ####BAY LABORATORYCLIA [id number] [place] [id number] [place] Platelet mean volume (Bld) [Entitic vol] 11.0 fL Normal 9.0-12.7 [facility] Comment on above: Order Comment: Speci men Type: BLOOD SPECIMENOrdering Facility: [facility] Address: [address] [place] [address] Performed By: #### 5 8410-2 ####BAY LABORATORYCLIA [id number] [place] [address] [place] Platelets (Bld) [#/Vol] 191 10*3/uL Normal 150-400 [facility] Comment on above: Order Comment: Speci men Type: BLOOD SPECIMENOrdering Facility: [facility] Address: [address] [place] [address] Performed By: #### 5 8410-2 ####[facility] LABORATORYCLIA [id number] [place] [id number] [place] RBC (Bld) [#/Vol] 3.55 10*6/uL Low 3.90-5.20 [facility] Comment on above: Order Comment: Speci men Type: BLOOD SPECIMENOrdering Facility: [facility] Address: [address] [place] [address] Performed By: #### 5 8410-2 ####BAY LABORATORYCLIA [id number] [place] [id number] [place] WBC (Bld) [#/Vol] 3.79 10*3/uL Normal 3.70-11.00 [facility] Comment on above: Order Comment: Speci men Type: BLOOD SPECIMENOrdering Facility: [facility] Address: [address] [place] [address] Performed By: #### 5 8410-2 ####BAY LABORATORYCLIA [id number] [place] [address] [place] [facility] CBC PNL BLD AUTOon 12-10 [facility] NRBC # BLD AUTO <0.01 NINF [facility] PLATELET # BLD AUTO 191 [facility] PMV BLD AUTO 11.0 fL 9.0 - 12.7 fL [facility] WBC # BLD AUTO 3.79 [facility] Erythrocyte distribution width (RBC) [Ratio] 13.3 % 11.5 - 15.0 % [facility] Hematocrit (Bld) [Volume fraction] 35.9 % Low 36.0 - 46.0 % [facility] Hemoglobin (Bld) [Mass/Vol] 12.1 g/dL 11.5 - 15.5 g/dL [facility] Interpretation and review of laboratory results Abnormal [facility] MCH (RBC) [Entitic mass] 34.1 pg High 26.0 - 34.0 pg [facility] MCHC (RBC) [Mass/Vol] 33.7 g/dL 30.5 - 36.0 g/dL [facility] MCV (RBC) [Entitic vol] 101.1 fL High 80.0 - 100.0 fL [facility] RBC (Bld) [#/Vol] 3.55 10*6/uL Low 3.90 - 5.2 0 m/uL [facility] Specimen Type: BLOOD SPECIMEN [facility] Address: [address] [place] [address] Original Ordering Provider: ATUL BACON [facility] CONSULTon 12-10-2023 CONSULT HNO ID: [id number] Author: FRAN MAIN MD Service: Neurology General Author Type: Physician Type: Consults Filed: 12/10/2023 11:59 Note Text: INITIAL CONSULT - GENERAL NEUROLOGY SERVICE DATE: 12/10/2023 SERVICE TIME: 1120 Team Requesting Consult: Medicine Current Attending Provider: Peter Medina MD Neurology was asked to evaluate Yani Gerard, a 83 year old right-handed female with a past medical history of HTN, HLD, arrhythmia, hypothyroidism, CAD status post ELIS, RLS, BPPV for a chief complaint of recurrent neurologic spell. Our recommendations of care will be communicated by shared medical record. Reason for Evaluation: Recurrent neurologic spell Subjective HPI: This is Ms. Yani Gerard a 83 year old female who presented to the [facility] initially with a chief complaint of recurrent neurologic spell. This represents the sixth time she has experienced it since mid September, but fortunately it was also the briefest lasting only 4-1/2 hours as opposed to with the longest being 24 hours. The spells have been fairly stereotypical. She describes it as starting with a midline mild headache associated with nausea and almost immediately thereafter she notices altered speech and motor function. The speech is more of a stuttering than slurring, and word selection is not impaired. She also describes shaking and weakness in the left-sided limbs more intensely than the right side, but all 4 involved. It is not described as a jerky, and there is no impairment in consciousness. There is no tongue biting or incontinence. In addition, although not normal, she can make voluntary movements of the affected limbs with minimal difficulty during these episodes. She was seen by Dr. Burks regarding these episodes and then referred to Dr. Ornelas regarding vertebrobasilar disease, who recommended medical management rather than surgical intervention. She was admitted to the hospital in [facility] approximately 10 days ago for a similar event; she underwent a 20-minute EEG and CT scan, and was started on Keppra 500 mg twice daily. She did have a concussion without loss of consciousness during her childbearing years, and briefly experienced headaches after that, but has not had any persistent headaches, nor did she have any before then. No family history is available and that she is an orphan. Between these episodes, there are no neurologic deficits, and she is fully functioning, but she is excessively tired right after these episodes for several hours. Currently she is without neurologic complaints. Current Facility-Administered Medications Medication Dose Route Frequency iv contrast (radiology procedure) INTRAVENOUS DIRECTED PRN levETIRAcetam 500 mg tab(s) (KEPPRA) 500 mg ORAL q 12 HR losartan 50 mg tab(s) (COZAAR) 50 mg ORAL BID pramipexole 0.25 mg tab(s) (MIRAPEX) 0.25 mg ORAL BID metoprolol succinate ER 50 mg tab(s) (TOPROL XL) 50 mg ORAL DAILY amLODIPine 10 mg tab(s) (NORVASC) 10 mg ORAL DAILY magnesium oxide 400 mg tab(s) (MAG-OX) 400 mg ORAL DAILY nitrofurantoin monohydrate and macrocrystal 100 mg cap(s) (MACROBID) 100 mg ORAL BID w MEALS aspirin 81 mg chewable tab(s) 81 mg ORAL DAILY clopidogrel 75 mg tab(s) (PLAVIX) 75 mg ORAL DAILY levothyroxine 50 mcg tab(s) (SYNTHROID) 50 mcg ORAL DAILY (6 AM) isosorbide mononitrate ER 30 mg tab(s) (IMDUR) 30 mg ORAL DAILY nitroglycerin sublingual 0.4 mg tab(s) (NITROQUICK) 0.4 mg SUBLINGUAL q 5 MIN PRN NaCl 0.9% iv flush bag 20 mL INTRAVENOUS PRN ondansetron 4 mg tab(s) (ZOFRAN) 4 mg ORAL q 6 H PRN Or ondansetron (PF) 4 mg injection (ZOFRAN) 4 mg INTRAVENOUS q 6 H PRN polyethylene glycol 3350 17 g packet 17 g ORAL DAILY PRN acetaminophen 650 mg tab(s) (TYLENOL) 650 mg ORAL q 6 H PRN NaCl 0.9% iv flush bag 20 mL INTRAVENOUS PRN labetalol 5 mg injection syringe (NORMODYNE) 5 mg INTRAVENOUS q 2 H PRN sodium chloride 0.9 % (flush) 2-10 mL (BD POSIFLUSH) 2-10 mL INTRAVENOUS DIRECTED PRN And perflutren lipid microspheres 1.1 mg/mL 1.3 mL injection (DEFINITY) 1.3 mL INTRAVENOUS DIRECTED PRN ranolazine ER 1,000 mg tab(s) (RANEXA) 1,000 mg ORAL BID budesonide 0.25 mg/2 mL 0.25 mg (PULMICORT) 0.25 mg INHALATION BID And ipratropium-albuterol 3 mL nebulizer solution (DUONEB) 3 mL INHALATION QID PAST MEDICAL HISTORY Diagnosis Date Arthritis Atrial fibrillation (HCC) pafib short lived suspected per [employer] watch strip, Biotel in place Benign paroxysmal positional vertigo of right ear 10/03/2018 CAD (coronary artery disease) 03/28/2019 LAD proximal stent , RCA nondominant bifurcating severe disease small medical rx Cancer (HCC) Dizziness 09/24/2018 HTN (hypertension) Hypertension Lumbar back pain with radiculopathy affecting left lower extremity 03/21/2019 Pulmonary HTN (HCC) TIA (transient ischemic attack) left leg motion movement and slurred speech PAST SURGICAL HISTORY Procedure (more content not included)... Normal [facility] HIGH SENSITIVITY TROPONIN To n 12-10-2023 Troponin T.cardiac High sensitivity method [Mass/Vol] 47 ng/L High <12 [facility] Comment on above: Order Comment: Maycol hdez Type: BLOOD SPECIMENOrdering Facility: [facility] Address: [address] [place] [address] Result Comment: When assessing risk for acute coronary syndromes: In patients undergoing blood draw greater than or equal to 2 hours from symptom onset, with history of very low to moderate risk and non-ischemic ECG, an initial hs-Troponin T less than 12 ng/L AND a 1 hour delta hs-Troponin T less than 3 ng/L should be considered very low risk for 30 day MACE. Performed By: #### H STNT ####BAY LABORATORYCLIA [id number] [place] [address] [place] HIGH SENSITIVITY TROPONIN T (INITIAL)on 12-10-2023 Troponin T.cardiac High sensitivity method [Mass/Vol] 53 ng/L High <12 [facility] Comment on above: Order Comment: Maycol hdez Type: BLOOD SPECIMENOrdering Facility: [facility] Address: [address] [place] [address] Result Comment: When assessing risk for acute coronary syndromes: In patients undergoing blood draw greater than or equal to 2 hours from symptom onset, with history of very low to moderate risk and non-ischemic ECG, an initial hs-Troponin T less than 12 ng/L AND a 1 hour delta hs-Troponin T less than 3 ng/L should be considered very low risk for 30 day MACE. Performed By: #### 1 9123-9, 82308-9, [id number] ####BAY LABORATORYCLIA [id number] [place] [id number] [place] HIGH SENSITIVITY TROPONIN T (SECOND)on 12-10-2023 Troponin T.cardiac High sensitivity method [Mass/Vol] 46 ng/L High <12 [facility] Comment on above: Order Comment: Maycol hdez Type: BLOOD SPECIMENOrdering Facility: [facility] Address: [address] [place] [address] Result Comment: When assessing risk for acute coronary syndromes: In patients undergoing blood draw greater than or equal to 2 hours from symptom onset, with history of very low to moderate risk and non-ischemic ECG, an initial hs-Troponin T less than 12 ng/L AND a 1 hour delta hs-Troponin T less than 3 ng/L should be considered very low risk for 30 day MACE. Performed By: #### L [id number] ####[facility] LABORATORYCLIA [id number] [address] HIGH SENSITIVITY TROPONIN T (THIRD) 3 HRS AFTER INITIALon 12-10-2023 Troponin T.cardiac High sensitivity method [Mass/Vol] 46 ng/L High <12 [facility] Comment on above: Order Comment: Speci men Type: BLOOD SPECIMENOrdering Facility: [facility] Address: [address] [place] [address] Result Comment: When assessing risk for acute coronary syndromes: In patients undergoing blood draw greater than or equal to 2 hours from symptom onset, with history of very low to moderate risk and non-ischemic ECG, an initial hs-Troponin T less than 12 ng/L AND a 1 hour delta hs-Troponin T less than 3 ng/L should be considered very low risk for 30 day MACE. Performed By: #### L [id number] ####BAY LABORATORYCLIA [id number] [place] [id number] [facility] HISTORY PHYSICALon HISTORY PHYSICAL HNO ID: [id number] Author: PETER MEDINA MD Service: General Internal Medicine Author Type: Physician Type: H&P Filed: 12/10/2023 23:29 Note Text: INTERNAL MEDICINE HANDCP EXAMINATION SERVICE DATE: 12/10/2023 SERVICE TIME: 11:10 PM PRIMARY CARE PHYSICIAN: Kyle Amin MD CHIEF COMPLAINT Seizure versus stroke symptoms HISTORY OF PRESENT ILLNESS HPI: Ms. Gerard is a 83 year old female who presents with seizure versus stroke symptoms. Patient has PMHx of HTN, CAD (s/p PCI), Paroxysmal atrial fibrillation, and TIA. Patient comes in for evaluation of repeated neurological events since September 2024. Patient often starts with headaches, described as pain in the midline of the head, and spreading over to the right facial area. She then develops tremor and weakness in her right hand spreading over to the right leg and then to the left leg and left arm. This has been associated with bilateral lower extremities weakness; left worse than weight. During the event patient stutters but able to express herself well. She does not lose consciousness, there is no tongue or cheek biting, and there is no loss of urine or bowel control during the above events. Initially the event lasted 24 hours then it decreased to 4-5 hours and last night just lasted briefly. She was evaluated by her neurologist who thought symptoms are related to seizure disorder and she was started on Keppra 500 mg twice a day. In ED temperature 36.3, heart rate of 66, blood pressure 134/64, SPO2 97% room air. Lab results sodium is 138 potassium 4.4, blood sugar 115, total cholesterol 55,HDL 58, LDL 50. HST 40-53-46-46 this 47.WBC 3.7, hemoglobin is 12.1, MCV 101. - Brain CT: No acute intracranial abnormality - Brain and neck vessels CT shows no LVO in no hemodynamically significant stenosis of extracranial carotid artery. There is moderate vertebral artery stenosis. Nonspecific 1.2 cm left high frontal skin lesion. MEDICAL/SURGICAL HISTORY PAST MEDICAL HISTORY Diagnosis Date Arthritis Atrial fibrillation (HCC) pafib short lived suspected per [employer] watch strip, Biotel in place Benign paroxysmal positional vertigo of right ear 10/03/2018 CAD (coronary artery disease) 03/28/2019 LAD proximal stent , RCA nondominant bifurcating severe disease small medical rx Cancer (HCC) Dizziness 09/24/2018 HTN (hypertension) Hypertension Lumbar back pain with radiculopathy affecting left lower extremity 03/21/2019 Pulmonary HTN (HCC) TIA (transient ischemic attack) left leg motion movement and slurred speech PAST SURGICAL HISTORY Procedure Laterality Date CC CORONARY STENT 03/28/2019 LAD prox stent , RCA nondominant bifurcating severe disease small medical rx , [facility] -No restenosis in stent lad mild disease 06/14/23 POST-CATARACT LASER SURGERY Bilateral REMV CATARACT EXTRACAP,INSERT LENS Bilateral 2015 REVISE TOTAL HIP REPLACEMENT Right TOTAL HIP REPLACEMENT Right FAMILY HISTORY Problem Relation Age of Onset Heart Mother heart attack Hypertension Mother Cancer Mother stomach Cancer Sister breast non smoker half sister Heart Maternal Grandmother heart attack Diabetes No Family History Cataract No Family History Glaucoma No Family History Macular Degen No Family History Social History Tobacco Use Smoking status: Never Smokeless tobacco: Never Vaping Use Vaping Use: Never used Substance Use Topics Alcohol use: Yes Comment: wine occas Drug use: No MEDICATIONS perflutren lipid microspheres 1.3 mL in NaCl (PF) 0.9% 10 mL injection (DEFINITY), , INTRAVENOUS, DIRECTED PRN, Fiona Harkins MD sodium chloride 0.9 % (flush) 10 mL (BD POSIFLUSH), 10 mL, INTRAVENOUS, DIRECTED PRN, Fiona Harkins MD levETIRAcetam (KEPPRA) 500 mg tablet, Take 1 tablet by mouth every 12 hours., Disp: , Rfl: , 12/09/2023 INV VITAMIN D3 5000 UNITS CAPSULE (IRB 19-1548), Take 5,000 Units by mouth once daily. For Investigational Drug Use Only. PI: Stevan Lozoya, PhD. Take one capsule by mouth daily for 3 months prior to surgery and 3 months after surgery., Disp: , Rfl: , 12/09/2023 cyanocobalamin (VITAMIN B-12) 1,000 mcg tab, Take 1,000 mcg by mouth once daily., Disp: , Rfl: , 12/09/2023 biotin 1 mg cap, Take by mouth., Disp: , Rfl: , 12/09/2023 omega 2-xmp-hve-fish oil 1,000 mg (250 mg-750 mg)/5 mL liqd, Take by mouth., Disp: , Rfl: , 12/09/2023 nitrofurantoin monohydrate and macrocrystal (MACROBID) 100 mg capsule, Q12H, Disp: , Rfl: , 12/09/2023 clopidogrel (PLAVIX) 75 mg tablet, Take 75 mg by mouth once daily., Disp: , Rfl: , 12/09/2023 Magnesium 200 mg tab, Take 2 tablets by mouth once daily., Disp: 180 tablet, Rfl: 3, 12/09/2023 aspirin 81 mg chewable tablet, Aspirin Active 81 MG PO Daily March 27, 2019 11:00pm, Disp: , Rfl: , 12/08/2023 evolocumab (REPATHA SURECLICK) 140 mg/mL pen injector, Inject 140 mg subcutaneously as directed. Inject 1 pen subcu e (more content not included)... Normal [facility] HbA1c (Bld)on 12-10-2023 Average glucose Estimated from glycated hemoglobin (Bld) [Mass/Vol] 108 mg/dL Normal [facility] Comment on above: Order Comment: Maycol hdez Type: BLOOD SPECIMENOrdering Facility: [facility] Address: [address] [place] [address] Result Comment: eAG: (Estimated average glucose) is a calculated value from HgbA1c and is strategic partnership representative of the average blood glucose level in the last 2-3 month period. Performed By: #### 5 5454-3 ####[facility] LABIA [id number] [place] [address] [place] HbA1c (Bld) [Mass fraction] 5.4 % Normal 4.3-5.6 [facility] Comment on above: Order Comment: Maycol hdez Type: BLOOD SPECIMENOrdering Facility: [facility] Address: [address] [place] [address] Result Comment: [place] Diabetes Association guidelines indicate that patients with HgbA1c in the range 5.7-6.4% are at increased risk for development of diabetes, and intervention by lifestyle modification may be beneficial. HgbA1c greater or equal to 6.5% is considered diagnostic of diabetes. Performed By: #### 5 5454-3 ####[facility] LABCLIA [id number] [address] [place] MRI BRAIN WO IVCONon 024 MRI BRAIN WO IVCON * * *Final Report* * * DATE OF EXAM: Dec 10 2023 12:36PM [facility] 0294 - MRI BRAIN WO IVCON / PROCEDURE REASON: Transient ischemic attack (TIA) * * * * Physician Interpretation * * * * EXAMINATION: MRI OF THE BRAIN WITHOUT CONTRAST HISTORY: TIA TECHNIQUE: Routine brain MRI protocol without contrast including diffusion and gradient echo images. MQ: MRBWO_2 COMPARISON: CT head and CTA head and neck 12/09/2023, MR brain 06/14/2022, outside MR brain October 13.3 RESULT: Acute Change: There is no evidence of restricted diffusion to suggest an acute infarct. Hemorrhage: Few foci of susceptibility in the right orbital frontal pole, left periatrial white matter, right occipital lobe are likely due to microhemorrhages. Mass Lesion/ Mass Effect: Again seen is a tiny 3 mm T2 hyperintense lesion in the right pituitary gland, unchanged, nonspecific, may be a cyst versus adenoma, as before, dedicated pituitary protocol can be offered if clinically indicated. No evidence of an intracranial mass or extra-axial fluid collection. No significant mass effect. Chronic Change: Scattered patchy areas of increased T2 and FLAIR signal are present in the supratentorial white matter which is a nonspecific finding but likely represents mild chronic microvascular ischemia. Parenchyma: There is mild generalized parenchymal volume loss. Few remote lacunar infarcts in the right cerebellar hemisphere,, left lateral thalamus, right lentiform nucleus, and left frontal colin radiata unchanged. Ventricles: Ventriculomegaly corresponds to the degree of parenchymal volume loss. Skull Base: Hypothalamic and pituitary region are grossly normal. Craniocervical junction is normal. No significant marrow replacement process. Vasculature: Major intracranial arterial structures, and dural venous sinuses show typical flow void, suggesting patency by spin echo criteria. Other: The visualized paranasal sinuses and mastoid air cells are clear. Moderate degenerative changes of bilateral TMJs. The orbits and extracranial soft tissues are unremarkable. IMPRESSION: No acute infarct. Chronic changes as described similar to the prior exam. Pigeon Fancier: [facility] Transcribe Date/Time: Dec 10 2023 12:26P Dictated by : KAMLA PAREDES MD This examination was interpreted and the report reviewed and electronically signed by: KAMLA PAREDES MD on Dec 10 2023 12:37PM EST [id number] Normal [facility] Magnesium SerPl-mCncon 12-10 Magnesium [Mass/Vol] 2.3 mg/dL Normal 1.7-2.3 [facility] Comment on above: Order Comment: Speci men Type: BLOOD SPECIMENOrdering Facility: [facility] Address: [address] [place], [place] [address] [address] Performed By: #### 1 9123-9, 15277-5, [id number] ####[facility] LABORATORYCLIA [id number] [place] [address] [place] THERAPY NTon 12-10-2023 THERAPY NT HNO ID: [id number] Author: KELLY RETANA, PT Service: Physical Therapy Author Type: Physical Therapist Type: Therapy (PT/OT/Speech/Resp) Filed: 12/10/2023 13:42 Note Text: Physical Therapy Evaluation Summary SERVICE DATE: 12/10/2023 SERVICE TIME: 1254 to 1332 ROOM: [place] [address] PT 6 Clicks Score: 24 DISCHARGE RECOMMENDATIONS: Outpatient PT Recommended Discharge Disposition Comments: Outpatient PT for balance training ASSESSMENT Response to Therapy Interventions: Good Participation in Activities Patient appears to be at her baseline with no residual deficits upon PT evaluation. With this being said patient does present with increased lateral sway during gait with dual tasks and will benefit from outpatient PT for balance training at discharge. Patient has no further skilled acute PT needs and will be discontinued from PT services. PRECAUTIONS CURRENT HOSPITAL COURSE CVA rule out, Seizure rule out, UTI Relevant Past Medical History: TIA, Afib, BPPV, Cancer, HTN, right [facility] Patient Lives With: Spouse Assistance Available: PRN Entry To Home: Stairs Number Of Stairs Into Home: 2 Number Of Stairs To Bed/Bath: 16 (report she does have a shower and room on 1st floor if necessary) Stairs to Bed/Bath with: Unilateral Rail Tub/Shower Type: walkin shower on 1st and 2nd floor Laundry: 2nd floor - patient completes Equipment Owned: Cane, Walker- Wheeled, Rollator, Crutch(es) PRIOR FUNCTIONAL LEVEL Within Functional Limits Patient reports previous independence with ADLs/iADLs, ambulates without AD, drives SUBJECTIVE Patient pleasant and agreeable to PT evaluation THERAPY DIAGNOSIS No Skilled Need TREATMENT INTERVENTIONS Evaluation, Therapeutic Activity (17738) Timed Code Treatment (minutes): 17 Skilled Treatment Time (minutes): 32 PT provided education on importance of in hospital mobility, current functional level, plan of care and possible discharge recommendation. PT provided extensive education regarding stroke signs and symptoms along with current balance deficits and need for outpatient PT. TRAINING AND EDUCATION PROVIDED Anatomy and Impact on Deficits, Benefits of In-Hospital Mobility, Expected Functional Level, Falls Prevention, Gait Pattern, Reduction of Deviations, Role of Physical Therapy, Standing Balance THERAPEUTIC SKILLS USED Activity Dosing, Cues for Sequencing/Proper Technique for Activity, Cuing Tactile, Cuing Verbal, Cuing Visual, Physical Assist, Postural Alignment Correction FUNCTIONAL STATUS Bed Mobility Rolling: Independent Supine To Sit: Independent Sit to Supine: Independent Scooting: Independent Transfers Sit To Stand: Independent Stand To Sit: Independent Bed to Chair Gait Supervision, Additional Information antalgic gait due to leg length discrepency. increased lateral sway with dual tasking Gait Device: None General Deviations/Observations: Antalgic gait, Emma decreased, Flexed trunk posture, Step length decreased Gait Distance (feet): 150 ft Stairs GOALS PLAN PT Frequency: Discontinue Therapy Services Reasons Therapy Services Discontinued: Independent in all functional mobility, No skilled needs Treatment Interventions: Education, Strengthening, Functional Mobility Training, Balance Training SIGNATURE: Kelly Retana, PT PATIENT NAME: Yani Gerard DATE: December 10, 2023 TIME: 1:42 PM [facility] THERAPY NT HNO ID: [id number] Author: JANNIE POND OT/Rozina Service: Occupational Therapy Author Type: Occupational Therapist Type: Therapy (PT/OT/Speech/Resp) Filed: 12/10/2023 12:21 Note Text: OCCUPATIONAL THERAPY MISSED VISIT SERVICE DATE: 12/10/2023 SERVICE TIME: 1045 ROOM: [place] [address] ([facility] 2) Patient not seen due to Patient Not Available.Eating at 0959, with MD at 1045, at MRI currently (1221). SIGNATURE: Janine Pond OT/Rozina PATIENT NAME: Yani Gerard DATE: December 10, 2023 TIME: 12:20 PM Normal [facility] Bacteria Ur Culton Bacteria identified Cx Nom (U) ORGANISM ID: 1 <10,000 CFU/ml Mixed microbiota No further workup. Mixed microbiota can be due to???urine???contaminatio n with skin bacteria at time of collection or presence of a long-term urinary catheter. If a new culture is needed, please consider re-education of the patient on proper midstream collection technique or straight catheterization for???urine???collection. Normal [facility] Comment on above: Performed By: #### 6 30-4 ####[facility] LABCLIA [id number] [place] [address] [place] Basic metabolic 2000 panelon 02-10-2024 Anion gap [Moles/Vol] 10 mmol/L Normal 9-18 [facility] Comment on above: Order Comment: Speci men Type: BLOOD SPECIMENOrdering Facility: [facility] Address: [address] [place] [address] Performed By: #### 2 4321-2, 3016-3, 11805-7, HSTNT ####[facility] LABORATORYCLIA [id number] [place] [id number] [place] Calcium [Mass/Vol] 9.0 mg/dL Normal 8.5-10.2 [facility] Comment on above: Order Comment: Speci men Type: BLOOD SPECIMENOrdering Facility: [facility] Address: [address] [place] [address] Performed By: #### 2 4321-2, 3016-3, 70972-8, HSTNT ####[facility] LABORATORYCLIA [id number] [place] [address] [place] Chloride [Moles/Vol] 99 mmol/L Normal 97-105 [facility] Comment on above: Order Comment: Speci men Type: BLOOD SPECIMENOrdering Facility: [facility] Address: [address] [place] [address] Performed By: #### 2 4321-2, 3016-3, 75532-2, HSTNT ####[facility] LABORATORYCLIA [id number] [place] [id number] [place] CO2 [Moles/Vol] 26 mmol/L Normal 22-30 [facility] Comment on above: Order Comment: Speci men Type: BLOOD SPECIMENOrdering Facility: [facility] Address: [address] [place] [address] Performed By: #### 2 4321-2, 3016-3, 33525-3, HSTNT ####[facility] LABORATORYCLIA [id number] [place] [id number] [place] Creatinine [Mass/Vol] 0.59 mg/dL Normal 0.58-0.96 [facility] Comment on above: Order Comment: Speci men Type: BLOOD SPECIMENOrdering Facility: [facility] Address: [address] [place] [address] Performed By: #### 2 4321-2, 3016-3, 10855-2, HSTNT ####[facility] LABORATORYCLIA [id number] [place] [id number] [place] Creatinine and Glomerular filtration rate.predicted panel (S/P/Bld) 90 mL/min/1.73m??? Normal >=60 [facility] Comment on above: Order Comment: Maycol hdez Type: BLOOD SPECIMENOrdering Facility: [facility] Address: [address] [place] [address] Result Comment: Mallika mated Glomerular Filtration Rate (eGFR) is calculated using the 2020 CKD-EPI creatinine equation. This equation utilizes serum creatinine, sex, and age as parameters. The creatinine assay has traceable calibration to isotope dilution-mass spectrometry. Refer to KDIGO guidelines for clinical interpretation. In patients with unstable renal function, e.g. those with acute kidney injury, the eGFR may not accurately reflect actual GFR. Performed By: #### 2 4321-2, 3016-3, 72904-6, HSTNT ####[facility] LABORATORYCLIA [id number] [place] [id number] [place] Glucose [Mass/Vol] 94 mg/dL Normal 74-99 [facility] Comment on above: Order Comment: Maycol hdez Type: BLOOD SPECIMENOrdering Facility: [facility] Address: [address] [place] [address] Result Comment: The [place] [employer] (ADA) provides guidance for cutoff values for fasting glucose and random glucose. The ADA defines fasting as no caloric intake for at least 8 hours. Fasting plasma glucose results between 100 to 125 mg/dL indicate increased risk for diabetes (prediabetes). Fasting plasma glucose results greater than or equal to 126 mg/dL meet the criteria for diagnosis of diabetes. In the absence of unequivocal hyperglycemia, results should be confirmed by repeat testing. In a patient with classic symptoms of hyperglycemia or hyperglycemic crisis, random plasma glucose results greater than or equal to 200 mg/dL meet the criteria for diagnosis of diabetes. Reference: Standards of Medical Care in Diabetes 2016, [place] [employer]. Diabetes Care. 2016.39(Suppl 1). Performed By: #### 2 4321-2, 3016-3, 21527-7, HSTNT ####[facility] LABORATORYCLIA [id number] [place] [address] [place] Potassium [Moles/Vol] 4.5 mmol/L Normal 3.7-5.1 [facility] Comment on above: Order Comment: Speci men Type: BLOOD SPECIMENOrdering Facility: [facility] Address: [address] [place] [address] Performed By: #### 2 4321-2, 3016-3, 10147-0, HSTNT ####[facility] LABORATORYCLIA [id number] [place] [id number] [place] Sodium [Moles/Vol] 135 mmol/L Low 136-144 [facility] Comment on above: Order Comment: Speci men Type: BLOOD SPECIMENOrdering Facility: [facility] Address: [address] [place] [address] Performed By: #### 2 4321-2, 3016-3, 53053-6, HSTNT ####[facility] LABORATORYCLIA [id number] [place] [id number] [place] Urea nitrogen [Mass/Vol] 15 mg/dL Normal 7-21 [facility] Comment on above: Order Comment: Speci men Type: BLOOD SPECIMENOrdering Facility: [facility] Address: [address] [place] [address] Performed By: #### 2 4321-2, 3016-3, 52836-4, HSTNT ####[facility] LABORATORYCLIA [id number] [place] [address] [place] CBC panel Auto (Bld)on 12-09 Erythrocyte distribution width (RBC) [Ratio] 13.1 % Normal 11.5-15.0 [facility] Comment on above: Order Comment: Speci men Type: BLOOD SPECIMENOrdering Facility: [facility] Address: [address] [place] [address] Performed By: #### 5 8410-2 ####[facility] LABORATORYCLIA [id number] [address] [place] Hematocrit (Bld) [Volume fraction] 39.7 % Normal 36.0-46.0 [facility] Comment on above: Order Comment: Speci men Type: BLOOD SPECIMENOrdering Facility: [facility] Address: [address] [place] [address] Performed By: #### 5 8410-2 ####[facility] LABORATORYCLIA [id number] [address] [place] Hemoglobin (Bld) [Mass/Vol] 13.5 g/dL Normal 11.5-15.5 [facility] Comment on above: Order Comment: Speci men Type: BLOOD SPECIMENOrdering Facility: [facility] Address: [address] [place] [address] Performed By: #### 5 8410-2 ####[facility] LABORATORYCLIA [id number] [address] [place] MCH (RBC) [Entitic mass] 34.1 pg High 26.0-34.0 [facility] Comment on above: Order Comment: Speci men Type: BLOOD SPECIMENOrdering Facility: [facility] Address: [address] [place] [address] Performed By: #### 5 8410-2 ####[facility] LABORATORYCLIA [id number] [address] [place] MCHC (RBC) [Mass/Vol] 34.0 g/dL Normal 30.5-36.0 [facility] Comment on above: Order Comment: Speci men Type: BLOOD SPECIMENOrdering Facility: [facility] Address: [address] [place] [address] Performed By: #### 5 8410-2 ####[facility] LABORATORYCLIA [id number] [address] [place] [facility] MCV (RBC) [Entitic vol] 100.3 fL High 80.0-100.0 [facility] Comment on above: Order Comment: Speci men Type: BLOOD SPECIMENOrdering Facility: [facility] Address: [address] [place] [address] Performed By: #### 5 8410-2 ####[facility] LABORATORYCLIA [id number] [place] [id number] [place] Nucleated RBC (Bld) [#/Vol] 10*3/uL Normal <0.01 [facility] Comment on above: Order Comment: Speci men Type: BLOOD SPECIMENOrdering Facility: [facility] Address: [address] [place] [address] Performed By: #### 5 8410-2 ####[facility] LABORATORYCLIA [id number] [place] [address] [place] Platelet mean volume (Bld) [Entitic vol] 10.8 fL Normal 9.0-12.7 [facility] Comment on above: Order Comment: Speci men Type: BLOOD SPECIMENOrdering Facility: [facility] Address: [address] [place] [address] Performed By: #### 5 8410-2 ####[facility] LABORATORYCLIA [id number] [place] [address] [place] Platelets (Bld) [#/Vol] 226 10*3/uL Normal 150-400 [facility] Comment on above: Order Comment: Speci men Type: BLOOD SPECIMENOrdering Facility: [facility] Address: [address] [place] [address] Performed By: #### 5 8410-2 ####[facility] LABORATORYCLIA [id number] [place] [id number] [place] RBC (Bld) [#/Vol] 3.96 10*6/uL Normal 3.90-5.20 [facility] Comment on above: Order Comment: Speci men Type: BLOOD SPECIMENOrdering Facility: [facility] Address: [address] [place] [address] Performed By: #### 5 8410-2 ####[facility] LABORATORYCLIA [id number] [place] [id number] [place] WBC (Bld) [#/Vol] 6.55 10*3/uL Normal 3.70-11.00 [facility] Comment on above: Order Comment: Speci men Type: BLOOD SPECIMENOrdering Facility: [facility] Address: [address] [place] [address] Performed By: #### 5 8410-2 ####[facility] LABORATORYCLIA [id number] [place] [address] [place] [facility] TSH SERPL-ACNCon 024 [facility] TSH SERPL-ACNC 3.360 [facility] Specimen Type: BLOOD SPECIMEN [facility] Address: [address] [place] [address] Original Ordering Provider: ATUL ROSENBAUM [facility] CT BRAIN ATTACK WO IVCONon 0 12-09-2023 CT BRAIN ATTACK WO IVCON * * *Final Report* * * DATE OF EXAM: Dec 09 2023 1:42PM [facility] 0502 - CT BRAIN ATTACK WO IVCON / PROCEDURE REASON: Focal neuro deficit, new, fixed, or worsening, 4.5 to 24 hours, NIHSS 6 or great * * * * Physician Interpretation * * * * EXAMINATION: CT BRAIN ATTACK WO IVCON CLINICAL HISTORY: Difficulty speaking, off-balance. Brain attack. TECHNIQUE: Routine CT of the brain without IV contrast. MQ: CTBA_4 CT Radiation dose: Integrated CT Dose-Length Product (DLP) for this visit = 198 mGy*cm CT Dose Reduction Employed: Automated exposure control (AEC) COMPARISON: MRI brain dated 10/13/2023 RESULT: Acute ischemic change: None. ASPECT Score = 10 Hemorrhage: No evidence of acute intracranial hemorrhage. ECASS hemorrhagic transformation score: Not Applicable Mass Lesion / Mass Effect: There is no evidence of an intracranial mass or extraaxial fluid collection. No significant mass effect. Chronic change: Scattered patchy foci of low attenuation are present within white matter which is a nonspecific finding but likely represents microvascular ischemia. Parenchyma: There is mild generalized volume loss for age. The brain parenchyma is otherwise within normal limits for age. Ventricles: Normal caliber and morphology. Other: The visualized calvarium, skull base, orbits and extracranial soft tissues are normal. Boat Hoist Operator Helper (topogram) images: No significant findings. IMPRESSION: No acute intracranial abnormality. Communicated with Dr. Root on 12/09/2023 at 1:50 pm . CR_1 Pigeon Fancier: JALEN Transcribe Date/Time: Dec 09 2023 1:46P Dictated by : ALEXA CHOW DO This examination was interpreted and the report reviewed and electronically signed by: RICCO DOVE MD on Dec 09 2023 2:05PM EST [id number] Normal [facility] CTA HEAD W IVCONon 4 CTA HEAD W IVCON * * *Final Report* * * DATE OF EXAM: Dec 09 2023 1:47PM [facility] 0022 - CTA HEAD W IVCON / PROCEDURE REASON: Focal neuro deficit, new, fixed, or worsening, 4.5 to 24 hours, NIHSS < 6, strok * * * * Physician Interpretation * * * * EXAMINATION: CTA NECK W IVCON, CTA HEAD W IVCON HISTORY: Brain attack TECHNIQUE: Spiral high resolution axial images were obtained through the head, neck and superior mediastinum following bolus administration of intravenous contrast for CT angiography. 3D maximum intensity projection images were created, reviewed and archived . MQ: CTAHN_4 Contrast: 80 mL Omnipaque [address] Radiation dose: Integrated Dose-Length Product (DLP) for this visit = 561 mGy*cm. CT Dose Reduction Employed: Automated exposure control (AEC) COMPARISON: None. RESULT: BRAIN: Evaluation of the individual slices of the CTA demonstrates no evidence of an acute stroke. ASPECT Score = 10 Hemorrhage: No evidence of acute intracranial hemorrhage. ECASS hemorrhagic transformation score: Not Applicable Nonspecific left frontal scalp lesion. NECK: Soft tissues: The soft tissue planes are maintained throughout. No evidence of a soft tissue mass in the neck or superior mediastinum. No significant lymphadenopathy is seen. Spine: Mild degenerative changes are present. Lung apices: The visualized lung apices are clear. CT ARTERIOGRAM: Extracranial Circulation: Aortic Arch: There is a normal branching pattern from the aortic arch. There is no significant stenosis in the proximal brachiocephalic vessels. Carotid Stenosis: Right Common: No significant stenosis. Right Internal Carotid Plaque: Atherosclerotic calcifications at the right carotid bifurcation without high-grade stenosis. Right Internal Carotid Stenosis (% by NASCET Criteria): 30% Left Common: No significant stenosis. Left Internal Carotid Plaque: Atherosclerotic calcifications at the left carotid bifurcation without high-grade stenosis. Left Internal Carotid Stenosis (% by NASCET Criteria): 10% Cervical Vertebral Arteries: Patency: Bilateral Dominance: Codominant Moderate stenosis at the origin of the bilateral cervical vertebral arteries. Intracranial Circulation: Anterior Circulation: The intracranial right internal carotid artery is patent. The right middle cerebral and right anterior cerebral arteries are patent. The intracranial left internal carotid artery is patent. The left middle cerebral and left anterior cerebral arteries are patent Vertebrobasilar Circulation: The intracranial vertebral arteries are patent. The basilar artery is patent. Bilateral superior cerebellar and posterior cerebral arteries are patent. There is origin of the bilateral posterior cerebral arteries. There is moderate focal stenosis of the left V4 segment, similar to prior exam. There is moderate stenosis of the proximal basilar artery, similar to prior exam. The basilar artery is narrow in caliber likely secondary to origin of the bilateral posterior cerebral arteries. Boat Hoist Operator Helper (topogram) images: No significant findings. IMPRESSION: No large vessel occlusion intracranially. No hemodynamically significant stenosis of the extracranial carotid arteries. Moderate vertebral artery stenosis as described. Nonspecific 1.2 cm left high frontal skin lesion. Arterial blood flow was measured to detect acute large vessel occlusion by computer aided detection software: None. Concordance between software and imaging review: Concordant. Pigeon Fancier: JALEN Transcribe Date/Time: Dec 09 2023 1:54P Dictated by : ALEXA CHOW, This examination was interpreted and the report reviewed and electronically signed by: RICCO DOVE MD on Dec 09 2023 2:20PM EST [id number] Normal [facility] CTA NECK W IVCONon 4 CTA NECK W IVCON * * *Final Report* * * DATE OF EXAM: Dec 09 2023 1:47PM [facility] 0024 - CTA NECK W IVCON / PROCEDURE REASON: Focal neuro deficit, new, fixed, or worsening, 4.5 to 24 hours, NIHSS < 6, strok * * * * Physician Interpretation * * * * EXAMINATION: CTA NECK W IVCON, CTA HEAD W IVCON HISTORY: Brain attack TECHNIQUE: Spiral high resolution axial images were obtained through the head, neck and superior mediastinum following bolus administration of intravenous contrast for CT angiography. 3D maximum intensity projection images were created, reviewed and archived . MQ: CTAHN_4 Contrast: 80 mL Omnipaque [address] Radiation dose: Integrated Dose-Length Product (DLP) for this visit = 561 mGy*cm. CT Dose Reduction Employed: Automated exposure control (AEC) COMPARISON: None. RESULT: BRAIN: Evaluation of the individual slices of the CTA demonstrates no evidence of an acute stroke. ASPECT Score = 10 Hemorrhage: No evidence of acute intracranial hemorrhage. ECASS hemorrhagic transformation score: Not Applicable Nonspecific left frontal scalp lesion. NECK: Soft tissues: The soft tissue planes are maintained throughout. No evidence of a soft tissue mass in the neck or superior mediastinum. No significant lymphadenopathy is seen. Spine: Mild degenerative changes are present. Lung apices: The visualized lung apices are clear. CT ARTERIOGRAM: Extracranial Circulation: Aortic Arch: There is a normal branching pattern from the aortic arch. There is no significant stenosis in the proximal brachiocephalic vessels. Carotid Stenosis: Right Common: No significant stenosis. Right Internal Carotid Plaque: Atherosclerotic calcifications at the right carotid bifurcation without high-grade stenosis. Right Internal Carotid Stenosis (% by NASCET Criteria): 30% Left Common: No significant stenosis. Left Internal Carotid Plaque: Atherosclerotic calcifications at the left carotid bifurcation without high-grade stenosis. Left Internal Carotid Stenosis (% by NASCET Criteria): 10% Cervical Vertebral Arteries: Patency: Bilateral Dominance: Codominant Moderate stenosis at the origin of the bilateral cervical vertebral arteries. Intracranial Circulation: Anterior Circulation: The intracranial right internal carotid artery is patent. The right middle cerebral and right anterior cerebral arteries are patent. The intracranial left internal carotid artery is patent. The left middle cerebral and left anterior cerebral arteries are patent Vertebrobasilar Circulation: The intracranial vertebral arteries are patent. The basilar artery is patent. Bilateral superior cerebellar and posterior cerebral arteries are patent. There is origin of the bilateral posterior cerebral arteries. There is moderate focal stenosis of the left V4 segment, similar to prior exam. There is moderate stenosis of the proximal basilar artery, similar to prior exam. The basilar artery is narrow in caliber likely secondary to origin of the bilateral posterior cerebral arteries. Boat Hoist Operator Helper (topogram) images: No significant findings. IMPRESSION: No large vessel occlusion intracranially. No hemodynamically significant stenosis of the extracranial carotid arteries. Moderate vertebral artery stenosis as described. Nonspecific 1.2 cm left high frontal skin lesion. Arterial blood flow was measured to detect acute large vessel occlusion by computer aided detection software: None. Concordance between software and imaging review: Concordant. Pigeon Fancier: JALEN Transcribe Date/Time: Dec 09 2023 1:54P Dictated by : ALEXA CHOW DO This examination was interpreted and the report reviewed and electronically signed by: RICCO DOVE MD on Dec 09 2023 2:20PM EST [id number] [facility] ECG COMPLETEon 12-09-2023 ECG COMPLETE Ventricular Rate : 6 2 BPM Atrial Rate : 62 BPM P-R Interval : 191 ms QRS Duration : 107 ms Q-T Interval : 456 ms QTC Calculation(Bazett) : 464 ms Calculated P [place] : 77 degrees Calculated R [place] : 71 degrees Calculated T [place] : 62 degrees Sinus rhythm Anteroseptal infarct, age indeterminate Abnormal ECG 1400 No Stemi Reconfirmed by TITO ROOT DO ([id number]), editor department CONNOR FARMER ([id number]) on 12/09/2023 5:55:12 PM NAME : YANI GERARD PID : [id number] : 1940 Gender : Female Race : ORD : [id number] Procedure Date : Dec 09 2023 13:59:00 Edit Date : Dec 09 2023 17:55:13 Diagnosis: Sinus rhythm Anteroseptal infarct, age indeterminate Abnormal ECG 1400 No Stemi Reconfirmed by TITO ROOT DO ([id number]), editor department CONNOR FARMER ([id number]) on 12/09/2023 5:55:12 PM Test Reason : Stroke Location : 402 : FVED [id number] Overread By : TITO ROOT DO Edited By : CONNOR FARMER Referred By : , Acquired by : [id number], [facility] ED NOTEon 12-09-2023 ED NOTE HNO ID: [id number] Author: BRETT NICOLAS RPh Service: Pharmacy Author Type: Pharmacist Type: ED Notes Filed: 12/09/2023 19:08 Note Text: PHARMACY ACUTE STROKE RESPONSE Patient Name: Yani Gerard Allergies: ALLERGIES Allergen Reactions Zetia [Ezetimibe] Myalgia Severe muscle pain fingers and legs, discontinued after 5 doses Ropinirole Other: See Comments Other reaction(s): nausea/dizziness, blurry vision Ribtimi-Lwc-Dtb Red* Other: See Comments Sulfa (Sulfonamide * Rash Pharmacy participated in multidisciplinary team bedside response for a potential acute stroke in the emergency department. Any identified issues relating to medication therapy have been discussed directly with the physician(s) currently providing care for this patient. Pharmacy did assist: Tenecteplase not given. Signature: Brett Nicolas Formerly [facility] Pager/Phone: [phone] Date of Service: 12/09/2023 Time of Service: 13:40 PM Normal [facility] ED PROV NOTEon 12-09-2023 ED PROV NOTE HNO ID: [id number] Author: TITO ROOT DO Service: Emergency Medicine Author Type: Physician Type: ED Provider Notes Filed: 12/09/2023 14:34 Note Text: ED Provider Note Patient Name: Yani Gerard : 1940 SERVICE DATE: 12/09/23 History Patient presents with: Potential Stroke Symptoms: Difficulty speaking, off balance, has happened in the past. This episode began this morning. HPI Yani Gerard is a 83 year old female with a past medical history significant for A-fib, coronary artery disease, TIA who presents to the ED today for concern for stroke. History obtained by patient's , states approximately 30 minutes ago, around 1 PM, patient had the acute onset of stuttering speech difficulty ambulating. states that she has been having the symptoms on and off over the past few months, has had multiple ED visits and follows with neurology. Also admits to left upper and left lower extremity weakness during these events. Patient admits to head pressure pain prior to these events. Family at bedside states that patient was recently discharged from outside hospital yesterday, at that time they noted that her oxygen seemed to improve her symptoms.. Significant chart review: Patient with telephone encounter with Dr. Burks, presented with similar symptoms including shaking and stuttering speech, very unsteady gait, she is currently on Keppra 500 twice daily. Per office visit dated November 07, 2023, patient was noted to have similar symptoms of rhythmic draining of the left leg without alteration of consciousness, does have intermittent slurred speech. Recent MRI was negative. Lower suspicion for TIA PAST MEDICAL HISTORY Diagnosis Date Arthritis Atrial fibrillation (HCC) pafib short lived suspected per [employer] watch strip, Biotel in place Benign paroxysmal positional vertigo of right ear 10/03/2018 CAD (coronary artery disease) 03/28/2019 LAD proximal stent , RCA nondominant bifurcating severe disease small medical rx Cancer (HCC) Dizziness 09/24/2018 HTN (hypertension) Hypertension Lumbar back pain with radiculopathy affecting left lower extremity 03/21/2019 Pulmonary HTN (HCC) TIA (transient ischemic attack) left leg motion movement and slurred speech PAST SURGICAL HISTORY Procedure Laterality Date CC CORONARY STENT 03/28/2019 LAD prox stent , RCA nondominant bifurcating severe disease small medical rx , [facility] -No restenosis in stent lad mild disease 06/14/23 POST-CATARACT LASER SURGERY Bilateral REMV CATARACT EXTRACAP,INSERT LENS Bilateral 2015 REVISE TOTAL HIP REPLACEMENT Right TOTAL HIP REPLACEMENT Right FAMILY HISTORY Problem Relation Age of Onset Heart Mother heart attack Hypertension Mother Cancer Mother stomach Cancer Sister breast non smoker half sister Heart Maternal Grandmother heart attack Diabetes No Family History Cataract No Family History Glaucoma No Family History Macular Degen No Family History Social History Tobacco Use Smoking status: Never Smokeless tobacco: Never Vaping Use Vaping Use: Never used Substance and Sexual Activity Alcohol use: Yes Comment: wine occas Drug use: No Sexual activity: Not on file Comment: not asked ALLERGIES Allergen Reactions Zetia [Ezetimibe] Myalgia Severe muscle pain fingers and legs, discontinued after 5 doses Gabapentin Other: See Comments Other reaction(s): nausea Pramipexole Other: See Comments Other reaction(s): nausea/dizziness, blurry vision Ropinirole Other: See Comments Other reaction(s): nausea/dizziness, blurry vision Imwbmrb-Hyy-Fkb Red* Other: See Comments Sulfa (Sulfonamide * Rash Review of Systems Constitutional: Negative for chills and fever. HENT: Negative for congestion, rhinorrhea and sore throat. Respiratory: Negative for cough, shortness of breath and wheezing. Cardiovascular: Negative for chest pain and leg swelling. Gastrointestinal: Negative for abdominal pain, constipation, diarrhea, nausea and vomiting. Genitourinary: Negative for dysuria, frequency and hematuria. Musculoskeletal: Negative for back pain and myalgias. Skin: Negative for rash and wound. Neurological: Positive for tremors, speech difficulty, weakness, light-headedness and headaches. Psychiatric/Behavioral: Negative for confusion. The patient is not nervous/anxious. Physical Exam Vitals BP Pulse Temp Temp src Resp SpO2 Weight Height 12/09/23 1350 12/09/23 1350 12/09/23 1350 -- 12/09/23 1350 12/09/23 1350 12/09/23 1352 12/09/23 1352 134/64 66 36.3 ?C (97.3 ?F) 18 97 % 73 kg (160 lb 15 oz) 1.549 m (5' 1 ) Physical Exam Vitals and nursing note reviewed. Constitutional: General: She is not in acute distress. Appearance: Normal appearance. She is well-developed. She is not ill-appearing. HENT: Head: Normocephalic. Mouth/Throat: Mouth: Mucous membranes are moist. Eyes: Conj (more content not included)... Normal [facility] HIGH SENSITIVITY TROPONIN To n 12-09-2023 Troponin T.cardiac High sensitivity method [Mass/Vol] 48 ng/L High <12 [facility] Comment on above: Order Comment: Maycol hdez Type: BLOOD SPECIMENOrdering Facility: [facility] Address: [address] [place] [address] Result Comment: When assessing risk for acute coronary syndromes: In patients undergoing blood draw greater than or equal to 2 hours from symptom onset, with history of very low to moderate risk and non-ischemic ECG, an initial hs-Troponin T less than 12 ng/L AND a 1 hour delta hs-Troponin T less than 3 ng/L should be considered very low risk for 30 day MACE. Performed By: #### 2 4321-2, 3016-3, 88410-4, HSTNT ####[facility] LABORATORYCLIA [id number] [place] [id number] [place] Lipid 1996 panelon Cholesterol [Mass/Vol] 155 mg/dL Normal <200 [facility] Comment on above: Order Comment: Maycol hdez Type: BLOOD SPECIMENOrdering Facility: [facility] Address: [address] [place] [address] Result Comment: <200 mg/dL, Desirable 200-239 mg/dL, Borderline high >239 mg/dL, High Performed By: #### 2 4321-2, 3016-3, 02550-0, HSTNT ####[facility] LABORATORYCLIA [id number] [place] [id number] [place] Cholesterol in HDL [Mass/Vol] 58 mg/dL Normal >39 [facility] Comment on above: Order Comment: Maycol hdez Type: BLOOD SPECIMENOrdering Facility: [facility] Address: [address] [place] [address] Result Comment: 40-5 9 mg/dL, Acceptable >59 mg/dL, High: Negative risk factor for coronary heart disease <40 mg/dL, Low: Positive risk factor for coronary heart disease Performed By: #### 2 4321-2, 3016-3, 16569-5, HSTNT ####[facility] LABORATORYCLIA [id number] [place] [id number] [facility] Cholesterol in LDL [Mass/Vol] 50 mg/dL Normal <100 [facility] Comment on above: Order Comment: Maycol hdez Type: BLOOD SPECIMENOrdering Facility: [facility] Address: [address] [place] [address] Result Comment: <100 mg/dL, Optimal 100-129 mg/dL, Near optimal/above optimal 130-159 mg/dL, Borderline high 160-189 mg/dL, High >189 mg/dL, Very high Secondary prevention optimal LDL Cholesterol levels are recommended to be < 70 mg/dL Performed By: #### 2 4321-2, 3016-3, 20188-7, HSTNT ####[facility] LABORATORYCLIA [id number] [place] [id number] [facility] Cholesterol in LDL/Cholesterol in HDL [Mass ratio] 0.86 {ratio} Normal <2.54 [facility] Comment on above: Order Comment: Maycol hdez Type: BLOOD SPECIMENOrdering Facility: [facility] Address: [address] [place] [address] Result Comment: Refe rence: 1. National Cholesterol Education Program ATP III Guideline At-A-Glance Quick Desk Reference: National Heart, Lung, and Blood [place]. National Institutes of Health. 2001: NIH Publication No. 01-3305. 2. An International Atherosclerosis Society position paper: global recommendations for the management of dyslipidemia: executive summary, Atherosclerosis. 2014: 232(2):410-413. Performed By: #### 2 4321-2, 3016-3, 21154-4, HSTNT ####[facility] LABORATORYCLIA [id number] [place] [address] [place] Cholesterol in VLDL [Mass/Vol] 47 mg/dL High <30 [facility] Comment on above: Order Comment: Speci men Type: BLOOD SPECIMENOrdering Facility: [facility] Address: [address] [place] [address] Performed By: #### 2 4321-2, 3016-3, 51510-2, HSTNT ####[facility] LABORATORYCLIA [id number] [place] [id number] [facility] Cholesterol non HDL [Mass/Vol] 97 mg/dL Normal <130 [facility] Comment on above: Order Comment: Speci men Type: BLOOD SPECIMENOrdering Facility: [facility] Address: [address] [place] [address] Result Comment: <130 mg/dL, Optimal 130-159 mg/dL, Near optimal/above optimal 160-189 mg/dL, Borderline high 190-219 mg/dL, High >219 mg/dL, Very high Secondary prevention optimal non HDL Cholesterol levels are recommended to be <100 mg/dL Performed By: #### 2 4321-2, 3016-3, 29380-6, HSTNT ####[facility] LABORATORYCLIA [id number] [place] [id number] [place] [facility] Cholesterol.total/Chol esterol in HDL [Mass ratio] 2.67 {ratio} Normal <5.10 [facility] Comment on above: Order Comment: Speci men Type: BLOOD SPECIMENOrdering Facility: [facility] Address: [address] [place] [address] Performed By: #### 2 4321-2, 3016-3, 35632-4, HSTNT ####[facility] LABORATORYCLIA [id number] [place] [id number] [place] FASTING TIME Normal [facility] Comment on above: Order Comment: Speci men Type: BLOOD SPECIMENOrdering Facility: [facility] Address: [address] [place] [address] Result Comment: Unkn own Performed By: #### 2 4321-2, 3016-3, 04042-6, HSTNT ####[facility] LABORATORYCLIA [id number] [place] [id number] [place] Triglyceride [Mass/Vol] 235 mg/dL High <150 [facility] Comment on above: Order Comment: Speci men Type: BLOOD SPECIMENOrdering Facility: [facility] Address: [address] [place] [address] Result Comment: <150 mg/dL, Normal 150-199 mg/dL, Borderline high 200-499 mg/dL, High >499 mg/dL, Very high Performed By: #### 2 4321-2, 3016-3, 12994-0, HSTNT ####[facility] LABORATORYCLIA [id number] [place] [id number] [place] NURSING PROGon 12-09-2023 NURSING PROG HNO ID: [id number] Author: SARAH TONEY RN Service: Nursing Author Type: Registered Nurse Type: Nursing Progress Note Filed: 12/09/2023 17:30 Note Text: 29 Transfer Note: PATIENT NAME: Yani Gerard Patient Location: [place] [address]/[place] [address] Room: [place] [address] Patient transferred into room/unit PKT 29 in stable condition. Actions taken: No futher actions taken at this time. Will continue to monitor and check with patient. NIH 1 for left leg drift. Pt did have a few stuttering words intermittently but not during the time of NIH assessment. Pt stated these episodes of weakness, and stuttering had started since her fall with concussion approx 3 months ago. Pt states episodes start with a LUNA and her left leg feels as though it twitches and becomes weak. Pt also has BUE tremors, that she says are worse with these episodes and are new for her. Normal [facility] PT panel Coag (PPP)on 2023 INR Coag (PPP) [Relative time] {INR} Low 0.9-1.3 [facility] Comment on above: Order Comment: Speci men Type: BLOOD SPECIMENOrdering Facility: [facility] Address: [address] [place] [address] Result Comment: Nadia min K Antagonist (VKA) Therapeutic Range: INR 2 to 3 (Target INR of 2.5) Note: For patients treated with VKA drugs, such as warfarin, the [employer] [employer] 2012 Guideline recommends a therapeutic INR range of 2 to 3 (target INR of 2.5). This recommendation includes high-risk patients with antiphospholipid syndrome with previous arterial or venous thromboembolism, current-generation mechanical or bioprosthetic aortic heart valve replacement. Note: Patients with mechanical aortic valve replacement and additional risk factors for thromboembolic events (atrial fibrillation, previous thromboembolism, LV dysfunction, hypercoagulable conditions) or an older generation mechanical AVR (i.e., ball in-Cage) or any mechanical MVR should have a INR therapeutic range of 2.5 to 3.5 (target INR of 3). Mando GH, et al. Chest 2012, 141:7S-47S Ernie RA, et al. [facility] 2017, 70: 252-289 Performed By: #### 1 4979-9, 15526-3 ####[facility] LABORATORYCLIA [id number] [place] [address] [place] [facility] PT Coag (PPP) [Time] 10.3 s Normal 9.7-13.0 [facility] Comment on above: Order Comment: Speci men Type: BLOOD SPECIMENOrdering Facility: [facility] Address: [address] [place] [address] Performed By: #### 1 4979-9, 61017-7 ####[facility] LABORATORYCLIA [id number] [place] [address] [place] TSH SerPl-aCncon 12-09-2023 TSH Qn 3.360 m[IU]/L Normal 0.270-4.200 [facility] Comment on above: Order Comment: Speci men Type: BLOOD SPECIMENOrdering Facility: [facility] Address: [address] [place] [address] Performed By: #### 2 4321-2, 3016-3, 79755-9, HSTNT ####[facility] LABORATORYCLIA [id number] [place] [address] [place] URINALYSIS, REFLEX MICROSCOP ICon 02-10-2024 Bilirubin Ql (U) Negative Normal Negative [facility] Comment on above: Order Comment: Speci men Type: URINE SPECIMENOrdering Facility: [facility] Address: [address] [place] [address] Performed By: #### L [id number] ####[facility] LABORATORYCLIA [id number] [place] [address] [place] Clarity (Unsp spec) Clear Normal Clear [facility] Comment on above: Order Comment: Speci men Type: URINE SPECIMENOrdering Facility: [facility] Address: [address] [place] [address] Performed By: #### L [id number] ####[facility] LABORATORYCLIA [id number] [place] [address] [place] Color (U) Light Yellow Normal Yellow [facility] Comment on above: Order Comment: Speci men Type: URINE SPECIMENOrdering Facility: [facility] Address: [address] [place] [address] Performed By: #### L [id number] ####[facility] LABORATORYCLIA [id number] [place] [address] [place] Glucose Test strip (U) [Mass/Vol] Negative Normal Trace, Negative [facility] Comment on above: Order Comment: Speci men Type: URINE SPECIMENOrdering Facility: [facility] Address: [address] [place] [address] Performed By: #### L [id number] ####[facility] LABORATORYCLIA [id number] [place] [address] [place] Hemoglobin Ql (U) Negative Normal Negative, Trace [facility] Comment on above: Order Comment: Speci men Type: URINE SPECIMENOrdering Facility: [facility] Address: [address] [place] [address] Performed By: #### L [id number] ####[facility] LABORATORYCLIA [id number] [place] [address] [place] Ketones Ql (U) Negative Normal Negative, Trace [facility] Comment on above: Order Comment: Speci men Type: URINE SPECIMENOrdering Facility: [facility] Address: [address] [place] [address] Performed By: #### L [id number] ####[facility] LABORATORYCLIA [id number] [address] [place] Leukocyte esterase Test strip Ql (U) Negative Normal Negative, 25 Frank/uL [facility] Comment on above: Order Comment: Speci men Type: URINE SPECIMENOrdering Facility: [facility] Address: [address] [place] [address] Performed By: #### L [id number] ####[facility] LABORATORYCLIA [id number] [place] [address] [place] Nitrite Ql (U) Negative Normal Negative [facility] Comment on above: Order Comment: Speci men Type: URINE SPECIMENOrdering Facility: [facility] Address: [address] [place] [address] Performed By: #### L [id number] ####[facility] LABORATORYCLIA [id number] [place] [address] [place] pH (U) 7.5 [pH] Normal 5.0-8.0 [facility] Comment on above: Order Comment: Speci men Type: URINE SPECIMENOrdering Facility: [facility] Address: [address] [place] [address] Performed By: #### L [id number] ####[facility] LABORATORYCLIA [id number] [place] [address] [place] Protein (U) [Mass/Vol] Negative Normal Trace , Negative [facility] Comment on above: Order Comment: Speci men Type: URINE SPECIMENOrdering Facility: [facility] Address: [address] [place] [address] Performed By: #### L [id number] ####[facility] LABORATORYCLIA [id number] [place] [address] [place] Specific gravity (U) [Rel density] 1.032 High 1.005-1.030 [facility] Comment on above: Order Comment: Speci men Type: URINE SPECIMENOrdering Facility: [facility] Address: [address] [place] [address] Performed By: #### L [id number] ####[facility] LABORATORYCLIA [id number] [place] [id number] [place] Urobilinogen Ql (U) Normal Normal Normal [facility] Comment on above: Order Comment: Speci men Type: URINE SPECIMENOrdering Facility: [facility] Address: [address] [place] [address] Performed By: #### L [id number] ####[facility] LABORATORYCLIA [id number] [place] [id number] [place] aPTT PPPon 12-09-2023 aPTT Coag (PPP) [Time] 27.4 s Normal 23.0-32.4 [facility] Comment on above: Order Comment: Speci men Type: BLOOD SPECIMENOrdering Facility: [facility] Address: [address] [place] [address] Performed By: #### 1 4979-9, 62854-5 ####[facility] LABORATORYCLIA [id number] [place] [address] [place] Activated partial thrombopla stin time (aPTT) in platelet poor plasma by coagulation aOrdered By: Louis Higgins on 12-08-2023 aPTT Coag (PPP) [Time] 34.1 s 25.1-36.5 [facility] Comment on above: A hematocrit value g reater than 55% may lead to inaccurate results in coagulation testing. Patients having hematocrit values >55% require a special collection tube for coagulation studies. Please contact the laboratory at [phone] for redraw instructions. Alanine aminotransferase [En zymatic activity/volume] in Serum or PlasmaOrdered By: Louis Higgins on 12-08-2023 ALT [Catalytic activity/Vol] 19 U/L Normal 7-52 [facility] Comment on above: Performed By: #### C MP #### [facility] [address] Albumin [Mass/volume] in Ser um or Plasma by Bromocresol green (BCG) dye binding methoOrdered By: Louis Higgins on 12-08-2023 Albumin BCG dye [Mass/Vol] 4.6 g/dL 3.5-5.7 [facility] Alkaline phosphatase [Enzyma tic activity/volume] in Serum or PlasmaOrdered By: Louis Higgins on 12-08-2023 ALP [Catalytic activity/Vol] 53 U/L Normal 34-104 [facility] Comment on above: Performed By: #### C MP #### [address] Aspartate aminotransferase [ Enzymatic activity/volume] in Serum or PlasmaOrdered By: Louis Higgins on 12-08-2023 AST [Catalytic activity/Vol] 16 U/L Normal 13-39 [facility] Comment on above: Performed By: #### C MP #### [address] Automated basophil %Ordered By: Louis Higgins on 12-08-2023 Basophils/100 WBC (Bld) 0.4 % Normal . [facility] Comment on above: Performed By: #### C BC, CK, HS TROP, PT, PTT #### [address] Automated basophil countOrde red By: Louis Higgins on 12-08-2023 Basophils (Bld) [#/Vol] 0.0 10*3/uL Normal 0.0-0.2 [facility] Comment on above: Result Comment: PERF ORMED BY: [place] [address] PATHOLOGIST CANDY DEPOSITING MACHINE OPERATOR BELLE BONDS M.D. Performed By: #### C BC, CK, HS TROP, PT, PTT #### [address] Automated blood monocyte cou ntOrdered By: Louis Higgins on 12-08-2023 Monocytes (Bld) [#/Vol] 0.6 10*3/uL Normal 0.0-0.8 [facility] Comment on above: Performed By: #### C BC, CK, HS TROP, PT, PTT #### [address] Automated eosinophil %Ordere d By: Louis Higgins on 12-08-2023 Eosinophils/100 WBC (Bld) 1.6 % Normal . [facility] Comment on above: Performed By: #### C BC, CK, HS TROP, PT, PTT #### [address] Automated eosinophil countOr dered By: Louis Higgins on 12-08-2023 Eosinophils (Bld) [#/Vol] 0.1 10*3/uL Normal 0.0-0.45 [facility] Comment on above: Performed By: #### C BC, CK, HS TROP, PT, PTT #### [address] Automated epithelial cells c ount in urine sediment (number/area)Ordered By: Louis Higgins on 12-08-2023 Epithelial cells Auto (Urine sed) [#/Area] 5-9 [HPF] 0-2 [facility] Automated erythrocytes count in urine sediment (number/area)Ordered By: Louis Higgins on 12-08-2023 RBC Auto (Urine sed) [#/Area] 0-1 [HPF] 0-4 [facility] Automated leukocytes count i n urine sediment (number/area)Ordered By: Louis Higgins on 12-08-2023 WBC Auto (Urine sed) [#/Area] 10-19 [HPF] 0-4 [facility] Automated monocyte %Ordered By: Louis Higgins on 12-08-2023 Monocytes/100 WBC (Bld) 9.9 % Normal . [facility] Comment on above: Performed By: #### C BC, CK, HS TROP, PT, PTT #### [address] Automated neutrophil %Ordere d By: Louis Higgins on 12-08-2023 Neutrophils/100 WBC (Bld) 70.0 % Normal . [facility] Comment on above: Performed By: #### C BC, CK, HS TROP, PT, PTT #### [address] Automated urine color determ inationOrdered By: Louis Higgins on 12-08-2023 Color (U) Yellow Normal Yellow [facility] Comment on above: Order Comment: Name Collection Type:: Voided Performed By: #### A DDONUAPLUS, CUU #### [address] Automated urine hyaline cast s count (number/volume)Ordered By: Louis Higgins on 12-08-2023 Hyaline casts Auto (U) [#/Vol] None seen [LPF] 0-1 [facility] Bilirubin Test strip Ql (U)O rdered By: Louis Higgins on 12-08-2023 Bilirubin Ql (U) Negative Negative [facility] Bilirubin.total [Mass/volume ] in Serum or PlasmaOrdered By: Louis Higgins on 12-08-2023 Bilirubin [Mass/Vol] 0.4 mg/dL Normal 0.3-1.0 [facility] Comment on above: Performed By: #### C MP #### [address] head/brain wo conon 12-08 CT head/brain wo con [facility] Main [place] [address] [place] [address] CT Scan Report Signed Patient: Yani Gerard MR#: [id number] : 1940 Acct:[id number] Age/Sex: 83 / F ADM Date: 12/08/23 Loc: ER Room: Type: [facility] ER Attending Dr: Copies to: Louis Higgins MD Ordering Provider: Louis Higgins MD Date of Service: 12/08/23 CT/CT head/brain wo con: [facility] CT BRAIN WITHOUT CONTRAST: CLINICAL HISTORY: Slurred speech COMPARISON: CT 11/30/2023 and MRI 12/01/2023 TECHNIQUE: Contiguous axial unenhanced images were obtained through the brain. This CT exam was performed using one or more following dose reduction techniques: Automated exposure control, adjustment of the mA and/or kV according to patient size, or use of iterative reconstruction technique. FINDINGS: There is generalized atrophy. The ventricles are normal in size and position. Basal ganglia mineralization is present. Chronic microvascular changes are again noted. There are no additional areas of abnormal attenuation. There is no hemorrhage, mass effect or extra-axial collections. The imaged paranasal sinuses and mastoid air cells are clear. There is carotid siphon plaque. CT/CT head/brain wo con IMPRESSION: ATROPHY AND CHRONIC MICROVASCULAR CHANGES. NO DEFINITE ACUTE INTRACRANIAL ABNORMALITY. Impression dictated by: Ayah Lincoln M.D.12/08/2023 4:02 PM Dictation Location: [place] [address] Transcribed By: [facility] 12/08/23 1602 Dictated By: Ayah Lincoln MD 12/08/23 1558 Signed By: 12/08/23 1602 Normal [facility] Calcium [Mass/volume] in Ser um or PlasmaOrdered By: Louis Higgins on 12-08-2023 Calcium [Mass/Vol] 9.5 mg/dL Normal 8.6-10.3 [facility] Comment on above: Performed By: #### C MP #### [address] Carbon dioxide, total [Moles /volume] in Serum or PlasmaOrdered By: Louis Higgins on 12-08-2023 CO2 [Moles/Vol] 27.1 mmol/L Normal 21.0-31.0 [facility] Comment on above: Performed By: #### C MP #### [address] Chloride [Moles/volume] in S joanne or PlasmaOrdered By: Louis Higgins on 12-08-2023 Chloride [Moles/Vol] 100 mmol/L Normal 98-107 [facility] Comment on above: Performed By: #### C MP #### [address] Complete Blood Count Auto Di ffon 12-08-2023 Mean Corpuscular HGB Conc 34.5 g/dL Normal 32.0-35.0 [facility] Comment on above: Performed By: #### C BC, CK, HS TROP, PT, PTT #### [address] Monocytes/100 WBC (Bld) 17.11 % Normal 0.00-20.00 [facility] Comment on above: Performed By: #### C BC, CK, HS TROP, PT, PTT #### [address] NRBC% 0.1 /100{WBC} Normal 0-0.5 [facility] Comment on above: Performed By: #### C BC, CK, HS TROP, PT, PTT #### [address] Comprehensive Metabolic Pane jeffrey 12-08-2023 Albumin [Mass/Vol] 4.6 g/dL Normal 3.5-5.7 [facility] Comment on above: Performed By: #### C MP #### [address] Creatinine Clr Calc Pharmacy 47.32 Normal [facility] Comment on above: Result Comment: PERF ORMED BY: [place] [address] PATHOLOGIST [employer]AND[employer] DEPOSITING MACHINE OPERATOR BELLE BONDS M.D. Performed By: #### C MP #### [address] GFR/1.73 sq M.predicted MDRD (S/P/Bld) [Vol rate/Area] mL/min/{1.73_m2} Normal [facility] Comment on above: Performed By: #### C MP #### [address] Creatine kinase [Enzymatic a ctivity/volume] in Serum or PlasmaOrdered By: Louis Higgins on 12-08-2023 CK [Catalytic activity/Vol] 41 U/L Normal 30-223 [facility] Comment on above: Performed By: #### C BC, CK, HS TROP, PT, PTT #### [address] Creatinine [Mass/volume] in Serum or PlasmaOrdered By: Louis Higgins on 12-08-2023 Creatinine [Mass/Vol] 0.74 mg/dL Normal 0.60-1.20 [facility] Comment on above: Performed By: #### C MP #### [place] [address] [place] Dipstick and Microscopicon 0 12-08-2023 Appearance (U) Clear Normal Clear [facility] Comment on above: Order Comment: Name Collection Type:: Voided Performed By: #### A DDONUAPLUS, CUU #### [address] Bacteria,Urine 1+ High None Seen [facility] Comment on above: Order Comment: Name Collection Type:: Voided Performed By: #### A DDONUAPLUS, CUU #### [address] Bilirubin,Urine Negative Normal Negative [facility] Comment on above: Order Comment: Name Collection Type:: Voided Performed By: #### A DDONUAPLUS, CUU #### [address] Glucose Ql (U) Normal Normal Normal [facility] Comment on above: Order Comment: Name Collection Type:: Voided Performed By: #### A DDONUAPLUS, CUU #### [address] Hyaline Casts,Urine None Seen Normal 0-1 [facility] Comment on above: Order Comment: Name Collection Type:: Voided Result Comment: PERF ORMED BY: [place] [address] PATHOLOGIST CANDY DEPOSITING MACHINE OPERATOR BELLE BONDS M.D. Performed By: #### A DDONUAPLUS, CUU #### [address] Ketones Ql (U) Negative Normal Negative [facility] Comment on above: Order Comment: Name Collection Type:: Voided Performed By: #### A DDONUAPLUS, CUU #### [address] Leukocyte esterase Test strip Ql (U) 1+ High Negative [facility] Comment on above: Order Comment: Name Collection Type:: Voided Performed By: #### A DDONUAPLUS, CUU #### [address] Nitrite,Urine Negative Normal Negative [facility] Comment on above: Order Comment: Name Collection Type:: Voided Performed By: #### A DDONUAPLUS, CUU #### [address] Occult Blood,Urine Negative Normal Negative [facility] Comment on above: Order Comment: Name Collection Type:: Voided Result Comment: PERF ORMED BY: [place] [address] PATHOLOGIST CANDY DEPOSITING MACHINE OPERATOR BELLE BONDS M.D. Performed By: #### A DDONUAPLUS, CUU #### [address] Protein,Urine Negative Normal Negative [facility] Comment on above: Order Comment: Name Collection Type:: Voided Performed By: #### A DDONUAPLUS, CUU #### [place] [address] [place] RBC LM.HPF (Urine sed) [#/Area] 0 /[HPF] Normal 0-4 [facility] Comment on above: Order Comment: Name Collection Type:: Voided Performed By: #### A DDONUAPLUS, CUU #### [address] Specificy Coleman,Urine 1.005 Normal 1.001-1.030 [facility] Comment on above: Order Comment: Name Collection Type:: Voided Performed By: #### A DDONUAPLUS, CUU #### [place] [address] [place] Squamous Epithelial Cell,Urine 5-9 High 0-2 [facility] Comment on above: Order Comment: Name Collection Type:: Voided Performed By: #### A DDONUAPLUS, CUU #### [address] Urobilinogen,Urine Normal Normal Normal [facility] Comment on above: Order Comment: Name Collection Type:: Voided Performed By: #### A DDONUAPLUS, CUU #### [place] [address] [place] WBC,Urine 10-19 High 0-4 [facility] Comment on above: Order Comment: Name Collection Type:: Voided Performed By: #### A ULYSSES PAEZ #### [facility] [address] [place] [address] ECG 12 lead ECGon 12-08-2023 ECG 12 lead ECG [facility] Main [place] [address] [place] [address] Electrocardiograph Report Signed Patient: Yani Gerard MR#: [id number] : 1940 Acct:[id number] Age/Sex: 83 / F ADM Date: 12/08/23 Loc: ER Room: Type: [facility] ER Attending Dr: Ordering Provider: Louis Higgins MD Date of Service: 12/08/2307/23/1520 ECG/ECG 12 lead ECG: Neuro Symptoms/Deficit Copies to: Test Reason : Blood Pressure : 143/065 mmHG Vent. Rate : 063 BPM Atrial Rate : 063 BPM P-R Int : 180 ms QRS Dur : 096 ms QT Int : 426 ms P-R-T Axes : 073 053 075 degrees QTc Int : 435 ms Normal sinus rhythm Normal ECG When compared with ECG of 30-NOV-2023 11:19, No significant change was found Confirmed by LOUIS HIGGINS MD ([id number]) on 12/08/2023 6:21:20 PM Referred By: Electronically Signed By:LOUIS HIGGINS MD Transcribed By: MUS Signed By Louis Higgins MD 12/08/23 1821 Normal [facility] Erythrocyte distribution wid th [Ratio] by Automated countOrdered By: Louis Higgins on 12-08-2023 Erythrocyte distribution width (RBC) [Ratio] 13.8 % Normal 11.9-15.3 [facility] Comment on above: Performed By: #### C BC, CK, HS TROP, PT, PTT #### [facility] [address] [place] [address] Erythrocytes [#/volume] in B lood by Automated countOrdered By: Louis Higgins on 12-08-2023 RBC (Bld) [#/Vol] 4.30 10*6/uL Normal 3.60-5.00 [facility] Comment on above: Performed By: #### C BC, CK, HS TROP, PT, PTT #### [facility] [address] Glucose [Mass/volume] in Ser um or PlasmaOrdered By: Louis Higgins on 12-08-2023 Glucose [Mass/Vol] 121 mg/dL High 70-100 [facility] Comment on above: ADA recommended refe rence rangeRandom Glucose Reference Range is dependent on time and content of last meal. Glucose of more than 200 mg/dL in a nonstressed, ambulatory subject supports the diagnosis of Diabetes Mellitus. Result Comment: [place] om Glucose Reference Range is dependent on time and content of last meal. Glucose of more than 200 mg/dL in a nonstressed, ambulatory subject supports the diagnosis of Diabetes Mellitus. ADA recommended reference range Performed By: #### C MP #### [address] Hematocrit [Volume Fraction] of Blood by Automated countOrdered By: Louis Higgins on 12-08-2023 Hematocrit (Bld) [Volume fraction] 42.6 % Normal 34.0-46.4 [facility] Comment on above: Performed By: #### C BC, CK, HS TROP, PT, PTT #### [facility] [address] Hemoglobin [Mass/volume] in BloodOrdered By: Louis Higgins on 12-08-2023 Hemoglobin (Bld) [Mass/Vol] 14.7 g/dL Normal 11.8-15.4 [facility] Comment on above: Performed By: #### C BC, CK, HS TROP, PT, PTT #### [address] INR in Platelet poor plasma by Coagulation assayOrdered By: Louis Higgins on 12-08-2023 INR Coag (PPP) [Relative time] 1.0 {INR} Normal [facility] Comment on above: INR Therapeutic Rang e A) Pre- and Peroperative OAT started two weeks before surgery. NOT HIP SURGERY: 1.5 - 2.5 HIP SURGERY: 2 - 3B) Primary and secondary prevention of venous THROMBOSIS: 2 - 3C) Active venous thrombosis, pulmonary embolismand prevention of recurrent venous thrombosis: 2 - 3D) Prevention of arterial thromboembolismincluding patients with mechanical heart valves: 3 - 4.5 Result Comment: INR Therapeutic Range A) Pre- and Peroperative OAT started two weeks before surgery. NOT HIP SURGERY: 1.5 - 2.5 HIP SURGERY: 2 - 3 B) Primary and secondary prevention of venous THROMBOSIS: 2 - 3 C) Active venous thrombosis, pulmonary embolism and prevention of recurrent venous thrombosis: 2 - 3 D) Prevention of arterial thromboembolism including patients with mechanical heart valves: 3 - 4.5 Performed By: #### C BC, CK, HS TROP, PT, PTT #### [address] Ketones Auto test strip (U) [Mass/Vol]Ordered By: Louis Higgins on 12-08-2023 Ketones (U) [Mass/Vol] Negative Negative [facility] Leukocytes [#/volume] correc dorian for nucleated erythrocytes in Blood by Automated counOrdered By: Louis Higgins on 12-08-2023 WBC corrected for nucl RBC Auto (Bld) [#/Vol] 6.5 10*3/uL 3.8-11.6 [facility] Leukocytes [#/volume] in Blo od by Automated countOrdered By: Louis Higgins on 12-08-2023 WBC (Bld) [#/Vol] 6.5 10*3/uL Normal 3.8-11.6 [facility] Comment on above: Performed By: #### C BC, CK, HS TROP, PT, PTT #### [facility] [address] [place] [address] Lymphocytes [#/volume] in Bl ood by Automated countOrdered By: Louis Higgins on 12-08-2023 Lymphocytes (Bld) [#/Vol] 1.2 10*3/uL Normal 1.00-4.8 [facility] Comment on above: Performed By: #### C BC, CK, HS TROP, PT, PTT #### [address] Lymphocytes/100 leukocytes i n Blood by Automated countOrdered By: Louis Higgins on 12-08-2023 Lymphocytes/100 WBC (Bld) 18.1 % Normal . [facility] Comment on above: Performed By: #### C BC, CK, HS TROP, PT, PTT #### [facility] [address] MCH [Entitic mass] by Automa dorian countOrdered By: oLuis Higgins on 12-08-2023 MCH (RBC) [Entitic mass] 34.2 pg Normal 24.7-34.3 [facility] Comment on above: Performed By: #### C BC, CK, HS TROP, PT, PTT #### [facility] [address] [place] [address] MCHC Auto (RBC) [Mass/Vol]Or dered By: Louis Higgins on 12-08-2023 MCHC (RBC) [Mass/Vol] 34.5 g/dL 32.0-35.0 [facility] MCV [Entitic volume] by Auto mated countOrdered By: Louis Higgins on 12-08-2023 MCV (RBC) [Entitic vol] 99.1 fL Normal 80-100 [facility] Comment on above: Performed By: #### C BC, CK, HS TROP, PT, PTT #### [facility] [address] [place] [address] Monocyte distribution width [Entitic volume] in Blood by AutomatedOrdered By: Louis Higgins on 12-08-2023 Monocyte distribution width Auto (Bld) [Entitic vol] 17.11 % 0.00-20.00 [facility] Neutrophils [#/volume] in Bl ood by Automated countOrdered By: Louis Higgins on 12-08-2023 Neutrophils (Bld) [#/Vol] 4.6 10*3/uL Normal 1.8-7.7 [facility] Comment on above: Performed By: #### C BC, CK, HS TROP, PT, PTT #### [facility] [address] [place] [address] Nitrite Test strip Ql (U)Ord ered By: Louis Higgins on 12-08-2023 Nitrite Ql (U) Negative Negative [facility] No Panel InformationOrdered By: Louis Higgins on 12-08-2023 Estimated GFR (CKD-EPI) > 60.0 mL/Min [facility] Creatinine Clearance (Chem 47.32 [facility] Nucleated erythrocytes [Pres ence] in Blood by Automated countOrdered By: Louis Higgins on 12-08-2023 Nucleated RBC Auto Ql (Bld) 0.1 /100{WBC} 0-0.5 [facility] Partial Thromboplastin Timeo n 12-08-2023 aPTT Coag (Bld) [Time] 34.1 s Normal 25.1-36.5 [facility] Comment on above: Result Comment: A he matocrit value greater than 55% may lead to inaccurate results in coagulation testing. Patients having hematocrit values >55% require a special collection tube for coagulation studies. Please contact the laboratory at [phone] for redraw instructions. PERFORMED BY: [place] [address] PATHOLOGIST CANDY DEPOSITING MACHINE OPERATOR BELLE BONDS M.D. Performed By: #### C BC, CK, HS TROP, PT, PTT #### [facility] [address] [place] [address] [place] Platelet mean volume [Entiti c volume] in Blood by Automated countOrdered By: Louis Higgins on 12-08-2023 Platelet mean volume (Bld) [Entitic vol] 9.1 fL Normal 6.3-10.7 [facility] Comment on above: Performed By: #### C BC, CK, HS TROP, PT, PTT #### [facility] [address] [place] [address] [place] Platelets [#/volume] in Bloo d by Automated countOrdered By: Louis Higgins on 12-08-2023 Platelets (Bld) [#/Vol] 238 10*3/uL Normal 150-450 [facility] Comment on above: Performed By: #### C BC, CK, HS TROP, PT, PTT #### [facility] [address] [place] [address] Potassium [Moles/volume] in Serum or PlasmaOrdered By: Louis Higgins on 12-08-2023 Potassium [Moles/Vol] 4.3 mmol/L Normal 3.5-5.1 [facility] Comment on above: Performed By: #### C MP #### [address] Protein Auto test strip (U) [Mass/Vol]Ordered By: Louis Higgins on 12-08-2023 Protein (U) [Mass/Vol] Negative Negative [facility] Protein [Mass/volume] in Ser um or PlasmaOrdered By: Louis Higgins on 12-08-2023 Protein [Mass/Vol] 7.2 g/dL Normal 6.4-8.9 [facility] Comment on above: Performed By: #### C MP #### [address] Prothrombin time (PT)Ordered By: Louis Higgins on 12-08-2023 PT Coag (PPP) [Time] 11.6 s Normal 9.0-12.9 [facility] Comment on above: A hematocrit value g reater than 55% may lead to inaccurate results in coagulation testing. Patients having hematocrit values >55% require a special collection tube for coagulation studies. Please contact the laboratory at [phone] for redraw instructions. Result Comment: A he matocrit value greater than 55% may lead to inaccurate results in coagulation testing. Patients having hematocrit values >55% require a special collection tube for coagulation studies. Please contact the laboratory at [phone] for redraw instructions. Performed By: #### C BC, CK, HS TROP, PT, PTT #### [address] Serum globulin measurement b y calculation (mass/volume)Ordered By: Louis Higgins on 12-08-2023 Globulin (S) [Mass/Vol] 2.6 g/dL [facility] Comment on above: Performed By: #### C MP #### [address] Serum or plasma albumin/glob ulin mass ratioOrdered By: Louis Higgins on 12-08-2023 Albumin/Globulin [Mass ratio] 1.8 {ratio} [facility] Comment on above: Performed By: #### C MP #### [address] Serum or plasma anion gap de terminationOrdered By: Louis Higgins on 12-08-2023 Anion gap [Moles/Vol] 12.2 mmol/L Normal 6.0-15.0 [facility] Comment on above: Performed By: #### C MP #### [address] Sodium [Moles/volume] in Ser um or PlasmaOrdered By: Louis Higgins on 12-08-2023 Sodium [Moles/Vol] 135 mmol/L Low 136-145 [facility] Comment on above: Performed By: #### C MP #### [address] Specific gravity Auto test s trip (U) [Rel density]Ordered By: Louis Higgins on 12-08-2023 Specific gravity (U) [Rel density] 1.005 1.001-1.030 [facility] Troponin I High Sensitivityo n 12-08-2023 Troponin I High Sensitivity 6.6 pg/mL Normal 0.0-15.0 [facility] Comment on above: Result Comment: PERF ORMED BY: [place] [address] PATHOLOGIST CANDY DEPOSITING MACHINE OPERATOR BELLE BONDS M.D. Performed By: #### C BC, CK, HS TROP, PT, PTT #### [address] Troponin I.cardiac [Mass/vol ume] in Serum or Plasma by Detection limit <= 0.01 ng/Ordered By: Louis Higgins on 12-08-2023 Troponin I.cardiac DL <= 0.01 ng/mL [Mass/Vol] 6.6 pg/mL 0.0-15.0 [facility] Urea nitrogen [Mass/volume] in Serum or PlasmaOrdered By: Louis Higgins on 12-08-2023 Urea nitrogen [Mass/Vol] 17 mg/dL Normal 7-25 [facility] Comment on above: Performed By: #### C MP #### [address] Urine Cultureon 12-08-2023 Bacteria identified Cx Nom (U) Urine Culture Results 40,000 colonies/ml Mixed Bacterial Skin Contaminants 2 Days PERFORMED BY: [place] [address] PATHOLOGIST CANDY DEPOSITING MACHINE OPERATOR BELLE BONDS M.D. Normal [facility] Comment on above: Performed By: #### A DAISY PAEZU #### [facility] [address] [place], [place] [id number] [facility] Urine bacteria detection by automated methodOrdered By: Louis Higgins on 12-08-2023 Bacteria Auto Ql (U) 1+ None Seen [facility] Urine clarity by refractomet ry automatedOrdered By: Louis Higgins on 12-08-2023 Clarity Refractometry automated (U) Clear Clear [facility] Urine glucose measurement by automated test strip (mass/volume)Ordered By: Louis Higgins on 12-08-2023 Glucose Auto test strip (U) [Mass/Vol] Normal mg/dL Normal [facility] Urine hemoglobin detection b y automated test stripOrdered By: Louis Higgins on 12-08-2023 Hemoglobin Auto test strip Ql (U) Negative Negative [facility] Urine leukocyte esterase det ection by automated test stripOrdered By: Louis Higgins on 12-08-2023 Leukocyte esterase Auto test strip Ql (U) 1+ Negative [facility] Urine pH measurement by auto mated test stripOrdered By: Louis Higgins on 12-08-2023 pH (U) 6.0 [pH] Normal 5.0-9.0 [facility] Comment on above: Order Comment: Name Collection Type:: Voided Performed By: #### A DAISY PAEZU #### [facility] [address] [place], [place] [id number] [facility] Urobilinogen Auto test strip (U) [Mass/Vol]Ordered By: Louis Higgins on 12-08-2023 Urobilinogen (U) [Mass/Vol] Normal mg/dL Normal [facility] XR chest 1V portableon 12-08 XR chest 1V portable [facility] Main [place] [address] [place] [id number] XRay Report Signed Patient: Yani Gerard MR#: [id number] : 1940 Acct:[id number] Age/Sex: 83 / F ADM Date: 12/08/23 Loc: ER Room: Type: [facility] ER Attending Dr: Copies to: Louis Higgins MD Ordering Provider: Louis Higgins MD Date of Service: 12/08/23 XR/XR chest 1V portable: Neuro Symptoms/Deficit PORTABLE AP ERECT CHEST 1336 hours CLINICAL HISTORY: Altered speech and full body shaking. COMPARISON: 11/15/2023 and 03/19/2022 The heart is enlarged. There are continued minor interstitial changes. No developing consolidation is noted. There is no sizable effusion or pneumothorax. The osseous structures are intact. XR/XR chest 1V portable IMPRESSION: CONTINUED CARDIOMEGALY AND INTERSTITIAL CHANGE. Impression dictated by: Ayah Lincoln M.D.12/08/2023 4:18 PM Dictation Location: [place] [address] Transcribed By: [facility] 12/08/23 1618 Dictated By: Ayah Lincoln MD 12/08/23 1616 Signed By: 12/08/23 1618 Normal [facility] Anila 12-07-[address] [facility] Telephone ([id number]) ----- YANI GERARD ([id number]) 1940 F Date Time Provider Department 12/07/23 AGUSTÍN ORNELAS [id number] During your visit today, we recorded the following information about you: Allergies As of Date: 12/07/2023 Noted Allergy Reaction ZETIA (EZETIMIBE) 03/05/2019 17 - Myalgia Comments: Severe muscle pain fingers and legs, discontinued after 5 doses GABAPENTIN 10/11/2021 14 - Other: See Comments Comments: Other reaction(s): nausea PRAMIPEXOLE 10/11/2021 14 - Other: See Comments Comments: Other reaction(s): nausea/dizziness, blurry vision ROPINIROLE 10/11/2021 14 - Other: See Comments Comments: Other reaction(s): nausea/dizziness, blurry vision [id number] REDUCTASE INHIBIT*04/26/2019 14 - Other: See Comments SULFA (SULFONAMIDE ANTIBIOTICS) 09/15/2005 2 - Rash Date Reviewed: 11/27/2023 Reviewed by: Jaki Higgins Ma - Fully Assessed Reason for Visit: Rec'd fax from [facility] [Other] Cmt: HANDP scanned in to chart. Prescriptions as of 12/07/2023 - clopidogrel (PLAVIX) 75 mg tablet Take 75 mg by mouth once daily. - Magnesium 200 mg tab Take 2 tablets by mouth once daily. - aspirin 325 mg tablet - aspirin 81 mg chewable tablet Aspirin Active 81 MG PO Daily March 27, 2019 11:00pm - evolocumab (REPATHA SYRINGE) 140 mg/mL Inject 140 mg subcutaneously every 2 weeks. - evolocumab (REPATHA SURECLICK) 140 mg/mL pen injector Inject 140 mg subcutaneously as directed. Inject 1 pen subcu every 2 wks - amLODIPine (NORVASC) 10 mg tablet Take 1 tablet by mouth once daily. - isosorbide mononitrate ER (IMDUR) 30 mg 24 hr tablet Take 1 tablet by mouth once daily. - metoprolol succinate ER (TOPROL XL) 50 mg 24 hr tablet Take 1 tablet by mouth once daily. - ezetimibe (ZETIA) 10 mg tablet Take 1 tablet by mouth once daily. - ranolazine SR (RANEXA) 1,000 mg tab ER 12 hr Take 1 tablet by mouth twice daily. - nitroglycerin sublingual (NITROQUICK) 0.3 mg SL tablet Dissolve 1 tablet under the tongue every 5 minutes as needed for chest pain. - nscmewbunqs-hincfkefc-wzw anter (TRELEGY ELLIPTA) 100-62.5-25 mcg inhalation powder Inhale 1 Puff as instructed. - furosemide (LASIX) 20 mg tablet Take 1 tablet by mouth once daily. - losartan (COZAAR) 25 mg tablet Take 2 tablets by mouth twice daily. - cholecalciferol, vitamin D3, (VITAMIN D3 ORAL) Take by mouth. - Ascorbic Acid (VITAMIN C) 100 mg tablet Take 100 mg by mouth once daily. - acetaminophen 650 mg CR tablet Take 650 mg by mouth every 8 hours as needed. - ibuprofen (MOTRIN) 800 mg tablet Take 800 mg by mouth every 6 hours as needed. - pramipexole (MIRAPEX) 0.5 mg tablet Take 0.5 mg by mouth once daily. - levothyroxine (SYNTHROID) 75 mcg tablet Take 1 tablet by mouth once daily. 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] 06/11/2014 Preoperative cardiovascular examination [Z01.81*05/27/2015 CAD (coronary artery disease) [I25.10] 05/27/2015 Dizziness [R42] 09/24/2018 05/20/2021 Abnormality of gait [R26.9] 10/03/2018 Benign paroxysmal positional vertigo of right e*10/03/2018 05/20/2021 Clear Outcomes Study, PI: Eva Fischer MD [Z00.6]10/04/2018 Lumbar back pain with radiculopathy affecting l*03/21/2019 05/20/2021 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 Paroxysmal supraventricular tachycardia (HCC) [*04/18/2023 Unstable angina (HCC) [I20.0] 06/14/2023 Encounter Status:Closed by RAS OWENS on 12/07/23 Normal [facility] echo transesophageal FREDY on 12-04-2023 [facility] echo transesophageal FREDY [facility] Main [place] [id number] Echocardiogram Signed Patient: Yani Gerard MR#: [id number] : 1940 Acct:[id number] Age/Sex: 83 / F ADM Date: 11/30/23 Loc: Room: [address] [place] [address] Type: ADM IN Attending Dr: Ana Rubio MD Ordering Provider: Megan Rubin DO Date of Service: 12/04/23/ ECH/ECH echo transesophageal FREDY: recurrent cva Copies to: Lico Siu MD, FACC Megan Rubin DO Weight: 160 lb Performed By: Neena Payan KANIKA BSA: 1.7 m2 BP: 131/72 mmHg HR: 79 Reason For Study: recurrent cva History: TIA/ CVA, CAD, [place], Hypertension, Hyperlipidemia, PCI, Family history of CAD Interpretation Summary Hurricane spray was administered and lidocaine viscous was provided to the patient to swallow before sedation was administered The left ventricular size, thickness and function are normal Ejection Fraction = 60-65%. The left atrium appears mildly dilated. Atrial septum appears to be intact and there is no evidence of flow across the atrial septum either by colorflow Doppler or by agitated saline. The left atrial appendage was visualized multiple views with no thrombi noted, no spontaneous echo contrast was seen and the flow velocity was not thrombogenic Mild valvular aortic stenosis. The aortic valve peak velocity is 230 cm/s. The aortic valve maximum pressure gradient is 22 mmHg. There is mild mitral regurgitation. There is mild tricuspid regurgitation. Mild plaque formation noted in aortic arch Procdure: A two-dimensional transesophageal echocardiogram with color flow and Doppler was performed. Informed consent for Transesophageal Echocardiogram was obtained prior to the procedure. The patient was brought to the procedure room in a fasting state. An intravenous line was placed. A topical anesthetic agent was used for oropharangeal anesthesia. A bite block was inserted. IV concious sedation was administered. A total of 35 mg of Propafol was given. A total of 1 mg of Versed was given. Hurricane spray was administered and lidocaine viscous was provided to the patient to swallow before sedation was administered. A multifrequency, multiplane transesopheageal echocardiographic endoscope was inserted and manipulated in the standard fashion to achieve multiplane views. The usual views were obtained; basal, mid-esophageal, transgastric and aortic views. The patient's vital signs, including blood pressure, heart rate, pulse oximetry and cardiac rhythm were monitored throughout the procedure and remained stable. Contrast injection with agitated saline was performed. The patient tolerated the procedure well without evidence of orophangeal or esophageal trauma. Left Ventricle: The left ventricular size, thickness and function are normal. Ejection Fraction = 60-65%. Left Atrium: The left atrium appears mildly dilated. The left atrial appendage was visualized multiple views with no thrombi noted, no spontaneous echo contrast was seen and the flow velocity was not thrombogenic. The atrial septum appears normal. Atrial septum appears to be intact and there is no evidence of flow across the atrial septum either by colorflow Doppler or by agitated saline. Right Atrium: The right atrium appears normal in size. Right Ventricle: The right ventricular size, thickness and function are normal. Aortic Valve: The aortic valve is trileaflet. Mild valvular aortic stenosis. The aortic valve peak velocity is 230 cm/s. The aortic valve maximum pressure gradient is 22 mmHg. Mitral Valve: The mitral valve is mildly sclerotic. There is mild mitral regurgitation. Tricuspid Valve: The tricuspid valve is normal in structure. There is mild tricuspid regurgitation. Pulmonic Valve: The pulmonic valve is not well seen, but is grossly normal. Arteries: The aortic root is normal size. Mild plaque formation noted in aortic arch. Effusions: No pericardial effusion seen. There is no pleural effusion. ___ Transcribed By: SCV Performed At: 12/04/23 1306 Signed By: Lico Siu MD, FACC 12/04/23 1535 Normal [facility] Lipid Panelon 12-01-2023 Cholesterol [Mass/Vol] 158 mg/dL Normal 140-200 [facility] Comment on above: Result Comment: Chol less than 200 mg/dl low risk Chol 201-239 mg/dl borderline risk Chol 240 mg/dl and greater high risk Performed By: #### C BC, CK, HS TROP, PT, PTT #### [address] Cholesterol in HDL [Mass/Vol] 52 mg/dL Normal 23-92 [facility] Comment on above: Result Comment: HDL CHOL ATP-III CLASSIFICATION Cardiovascular Risk HDL > or equal to 60 mg/dL LOW HDL < 40 mg/dL HIGH Performed By: #### C BC, CK, HS TROP, PT, PTT #### [address] Cholesterol.total/Chol esterol in HDL [Mass ratio] 3.0 {ratio} Normal <5.0 [facility] Comment on above: Result Comment: PERF ORMED BY: [place] [address] PATHOLOGIST CANDY DEPOSITING MACHINE OPERATOR BELLE BONDS M.D. Performed By: #### C BC, CK, HS TROP, PT, PTT #### [address] LDL Cholesterol,Calculated 76 mg/dL Normal 0-100 [facility] Comment on above: Result Comment: LDL ATP III CLASSIFICATION LDL less than 100 mg/dL Optimal LDL 100-129 mg/dL Near or above optimal LDL 130-159 mg/dL Borderline high LDL 160-189 mg/dL High LDL greater than 189 mg/dL Very high Performed By: #### C BC, CK, HS TROP, PT, PTT #### [address] Triglyceride w/Reflex 151 mg/dL High 0-149 [facility] Comment on above: Result Comment: TRIG ATP III CLASSIFICATION TRIG less than 150 mg/dL Normal TRIG 150-199 mg/dL Borderline high TRIG 200-500 mg/dL High TRIG greater than 500 mg/dL Very high Standard traceable to the Center for Disease Conrtrol and Prevention (CDC) test method. Performed By: #### C BC, CK, HS TROP, PT, PTT #### [address] VLDL CHOLESTEROL 30 mg/dL Normal [facility] Comment on above: Performed By: #### C BC, CK, HS TROP, PT, PTT #### [facility] [address] [place] [id number] [facility] MR head/brain wo conon 12-01 MR head/brain wo con [facility] Main [place] [address] [place] [address] MRI Report Signed Patient: Yani Gerard MR#: [id number] : 1940 Acct:[id number] Age/Sex: 83 / F ADM Date: 11/30/23 Loc: 3T Room: [address] [place] [address] Type: ADM IN Attending Dr: Megan Rubin DO Copies to: Megan Rubin DO Ordering Provider: Megan Rubin DO Date of Service: 12/01/23 MR/MR head/brain wo con: abnormal speech EXAMINATION: MRI OF THE BRAIN WITHOUT CONTRAST CLINICAL HISTORY: Stuttering with left leg weakness. COMPARISON: Stroke workup 11/30/2023 TECHNIQUE: Multiecho, multiplanar imaging of the brain was performed without enhancement. No evidence of restricted diffusion on diffusion-weighted imaging. No evidence of blood products are seen on GRE imaging. Cortical atrophy with moderate chronic microvascular ischemic changes. Midbrain, milan, medulla and cerebellum all appear grossly unremarkable. Intraorbital contents appear grossly unremarkable. No air-fluid levels are seen within the paranasal sinuses. MR/MR head/brain wo con IMPRESSION: NO ACUTE INTRACRANIAL PROCESS. CORTICAL ATROPHY WITH MODERATE CHRONIC MICROVASCULAR ISCHEMIC CHANGES. Impression dictated by: Sorin Jones Jr., D.O.12/01/2023 1:06 PM Dictation Location: [place] [address] Transcribed By: [facility] 12/01/23 1306 Dictated By: Sorin Jones Jr, DO 12/01/23 1303 Signed By: 12/01/23 1306 Normal [facility] Activated partial thrombopla stin time (aPTT) in platelet poor plasma by coagulation aOrdered By: Kem Hammond on 11-30-2023 aPTT Coag (PPP) [Time] 35.0 s 25.1-36.5 [facility] Comment on above: A hematocrit value g reater than 55% may lead to inaccurate results in coagulation testing. Patients having hematocrit values >55% require a special collection tube for coagulation studies. Please contact the laboratory at [phone] for redraw instructions. Alanine aminotransferase [En zymatic activity/volume] in Serum or PlasmaOrdered By: Kem Hammond on 11-30-2023 ALT [Catalytic activity/Vol] 23 U/L Normal 7-52 [facility] Comment on above: Performed By: #### A PHILIPPE, CUU #### [place] [address] [place] Albumin [Mass/volume] in Ser um or Plasma by Bromocresol green (BCG) dye binding methoOrdered By: Kem Hammond on 11-30-2023 Albumin BCG dye [Mass/Vol] 4.3 g/dL 3.5-5.7 [facility] Alkaline phosphatase [Enzyma tic activity/volume] in Serum or PlasmaOrdered By: Kem Hammond on 11-30-2023 ALP [Catalytic activity/Vol] 45 U/L Normal 34-104 [facility] Comment on above: Performed By: #### A PHILIPPE, CUU #### [address] Aspartate aminotransferase [ Enzymatic activity/volume] in Serum or PlasmaOrdered By: Kem Hammond on 11-30-2023 AST [Catalytic activity/Vol] 17 U/L Normal 13-39 [facility] Comment on above: Performed By: #### A PHILIPPE, CUU #### [address] Automated basophil %Ordered By: Kem Hammond on 11-30-2023 Basophils/100 WBC (Bld) 0.7 % Normal . [facility] Comment on above: Performed By: #### C BC, PT, PTT, CMP, CK, HS TROP #### [address] Automated basophil countOrde red By: Kem Hammond on 11-30-2023 Basophils (Bld) [#/Vol] 0.0 10*3/uL Normal 0.0-0.2 [facility] Comment on above: Result Comment: PERF ORMED BY: [place] [address] PATHOLOGIST CANDY DEPOSITING MACHINE OPERATOR BELLE BONDS M.D. Performed By: #### C BC, PT, PTT, CMP, CK, HS TROP #### [address] Automated blood monocyte cou ntOrdered By: Kem Hammond on 11-30-2023 Monocytes (Bld) [#/Vol] 0.3 10*3/uL Normal 0.0-0.8 [facility] Comment on above: Performed By: #### C BC, PT, PTT, CMP, CK, HS TROP #### [address] Automated eosinophil %Ordere d By: Kem Hammond on 11-30-2023 Eosinophils/100 WBC (Bld) 1.7 % Normal . [facility] Comment on above: Performed By: #### C BC, PT, PTT, CMP, CK, HS TROP #### [address] Automated eosinophil countOr dered By: Kem Hammond on 11-30-2023 Eosinophils (Bld) [#/Vol] 0.1 10*3/uL Normal 0.0-0.45 [facility] Comment on above: Performed By: #### C BC, PT, PTT, CMP, CK, HS TROP #### [address] Automated monocyte %Ordered By: Kem Hammond on 11-30-2023 Monocytes/100 WBC (Bld) 8.1 % Normal . [facility] Comment on above: Performed By: #### C BC, PT, PTT, CMP, CK, HS TROP #### [address] Automated neutrophil %Ordere d By: Kem Hammond on 11-30-2023 Neutrophils/100 WBC (Bld) 68.2 % Normal . [facility] Comment on above: Performed By: #### C BC, PT, PTT, CMP, CK, HS TROP #### [place] [address] [place] [id number] [facility] Bilirubin.total [Mass/volume ] in Serum or PlasmaOrdered By: Kem Hammond on 11-30-2023 Bilirubin [Mass/Vol] 0.4 mg/dL Normal 0.3-1.0 [facility] Comment on above: Performed By: #### A PHILIPPE, CUU #### [facility] [address] [place] [id number] [facility] CT angio neckon 11-30-2023 CT angio neck [facility] Main [place] [address] [place] [address] CT Scan Report Signed Patient: Yani Gerard MR#: [id number] 2749 : 1940 Acct:[id number] Age/Sex: 83 / F ADM Date: 11/30/23 Loc: ER Room: Type: [facility] Attending Dr: Copies to: Kem Hammond DO Ordering Provider: Kem Hammond DO Date of Service: 11/30/23 CT/CT angio head: left side leg weakness ([id number]) CT/CT angio neck: left sided leg weakness CTA Head and Neck TECHNIQUE: Axial imaging of the head and neck with 2-D and 3-D reconstruction. 80cc of Isovue-370. The CT exam was performed using one or more the following dose reduction techniques: Automated exposure control, adjustment of the MA and/or Kv according to patient size, or use of the iterative reconstruction technique. Stenoses were measured using the NASCET criteria. COMPARISON: 11/15/23 HISTORY: leg weakness. Headache. Transient ischemic attack. The visualized aortic arch and great vessels are unremarkable. Subclavian arteries are patent No carotid dissection, critical stenosis or occlusion identified. The moderate atherosclerosis of the RIGHT proximal internal carotid artery with near 50% stenosis. Mild atherosclerosis of the LEFT carotid bifurcation with minimal stenosis. Tortuous internal iliac arteries identified. Atherosclerosis of the origin of the LEFT vertebral artery with greater than 50% stenosis. Minimal atherosclerosis of the origin of the RIGHT vertebral artery with minimal stenosis. Similar narrowing of the basilar artery. Mild atherosclerosis of the carotid siphons. No intracranial aneurysm, dissection, abrupt cut off or critical stenosis identified.. . CT/CT angio head IMPRESSION: No occlusion, critical stenosis or dissection of the extracranial or intracranial circulation. Atherosclerotic changes of the carotid bifurcations with stenosis on the RIGHT ICA approaching 50% and minimal stenosis on the LEFT. Similar narrowing of the basilar artery. Atherosclerotic narrowing of the origin of the LEFT vertebral artery. Impression dictated by: Richard Haji M.D.11/30/2023 11:37 AM Dictation Location: [place] [address] Transcribed By: [facility] 11/30/23 1137 Dictated By: Richard Haji DO 11/30/23 1117 Signed By: 11/30/23 1137 Normal [facility] CT head stroke alert wo cono n 11-30-2023 CT head stroke alert wo con [facility] Main [place] [address] [place] [address] CT Scan Report Signed Patient: Yani Gerard MR#: [id number] 2749 : 1940 Acct:[id number] Age/Sex: 83 / F ADM Date: 11/30/23 Loc: ER Room: Type: PRE ER Attending Dr: Copies to: Kem Hammond DO Ordering Provider: Kem Hammond DO Date of Service: 11/30/23 CT/CT head stroke alert wo con: stroke Unenhanced head CTstroke alert TECHNIQUE: Contiguous axial imaging of the head. The CT exam was performed using one or more the following dose reduction techniques: Automated exposure control, adjustment of the MA and/or Kv according to patient size, or use of the iterative reconstruction technique. COMPARISON: 11/15/23 HISTORY: RIGHT leg, weakness. Headache. History of transient ischemic attack. VENTRICLES: Within normal limits ATROPHY: Mild atrophy BRAIN PARENCHYMA: Decreased density of the white matter is most consistent with chronic small vessel disease. HEMORRHAGE: None HERNIATION: No mass effect or herniation INFARCTION: No recent vascular distribution infarction is seen. EXTRA-AXIAL FLUID COLLECTIONS None MIDBRAIN: Unremarkable MILAN: Unremarkable MEDULLA: Unremarkable SINUSES: Unremarkable ORBITS: Grossly unremarkable MASTOIDS: Unremarkable BONY STRUCTURES Intact ADDITIONAL FINDINGS: CT/CT head stroke alert wo con IMPRESSION: No acute findings. The preliminary given 11:05 AM 11/30/23 Impression dictated by: Richard Haji M.D.11/30/2023 11:13 AM Dictation Location: [place] [address] Transcribed By: [facility] 11/30/23 1113 Dictated By: Richard Haji DO 11/30/23 1107 Signed By: 11/30/23 1113 Normal [facility] Calcium [Mass/volume] in Ser um or PlasmaOrdered By: Kem Hammond on 11-30-2023 Calcium [Mass/Vol] 9.3 mg/dL Normal 8.6-10.3 [facility] Comment on above: Performed By: #### A PHILIPPE, CUU #### [address] Carbon dioxide, total [Moles /volume] in Serum or PlasmaOrdered By: Kem Hammond on 11-30-2023 CO2 [Moles/Vol] 30.9 mmol/L Normal 21.0-31.0 [facility] Comment on above: Performed By: #### A PHILIPPE, CUU #### [place] [address] [place] Chloride [Moles/volume] in S joanne or PlasmaOrdered By: Kem Hammond on 11-30-2023 Chloride [Moles/Vol] 103 mmol/L Normal 98-107 [facility] Comment on above: Performed By: #### A PHILIPPE, CUU #### [address] Complete Blood Count Auto Di ffon 11-30-2023 Mean Corpuscular HGB Conc 34.7 g/dL Normal 32.0-35.0 [facility] Comment on above: Performed By: #### C BC, PT, PTT, CMP, CK, HS TROP #### [facility] [address] [place] [address] [place] Monocytes/100 WBC (Bld) 18.82 % Normal 0.00-20.00 [facility] Comment on above: Performed By: #### C BC, PT, PTT, CMP, CK, HS TROP #### [place] [address] [place] NRBC% 0.1 /100{WBC} Normal 0-0.5 [facility] Comment on above: Performed By: #### C BC, PT, PTT, CMP, CK, HS TROP #### [address] Comprehensive Metabolic Pane jeffrey 11-30-2023 Albumin [Mass/Vol] 4.3 g/dL Normal 3.5-5.7 [facility] Comment on above: Performed By: #### A DDONUAPLUS, CUU #### [address] Creatinine Clr Calc Pharmacy 48.58 Normal [facility] Comment on above: Result Comment: PERF ORMED BY: [place] [address] PATHOLOGIST CANDY DEPOSITING MACHINE OPERATOR BELLE BONDS M.D. Performed By: #### A DDONUAPLUS, CUU #### [address] GFR/1.73 sq M.predicted MDRD (S/P/Bld) [Vol rate/Area] mL/min/{1.73_m2} Normal [facility] Comment on above: Performed By: #### A LORENONUAMIRI, CUU #### [address] Creatine kinase [Enzymatic a ctivity/volume] in Serum or PlasmaOrdered By: Kem Hammond on 11-30-2023 CK [Catalytic activity/Vol] 35 U/L Normal 30-223 [facility] Comment on above: Performed By: #### A DDONUAPLUS, CUU #### [address] Creatinine [Mass/volume] in Serum or PlasmaOrdered By: Kem Hammond on 11-30-2023 Creatinine [Mass/Vol] 0.63 mg/dL Normal 0.60-1.20 [facility] Comment on above: Performed By: #### A DDONUAPLUS, CUU #### [address] D-Dimer High Sensitivityon 0 2-01-2024 D-Dimer High Sensitivity < 200 Normal 0-243 [facility] Comment on above: Order Comment: Comme nt ADD ON Result Comment: The reference range for D-dimer is <243 ng/mL D-dimer units. D-dimer results must be used in conjunction with a clinical pretest probability (PTP) assessment model for deep vein thrombosis (DVT) and pulmonary embolism (PE). Results <230 ng/mL d-dimer units can be used as a negative predictor in patients with low or moderate probability for DVT/PE. Results above the exclusion threshold of 230 ng/ml D-dimer units for DVT/PE may indicate the need for further diagnostic testing. D-Dimer can be increased in hospitalized patients due to co-morbid conditions. A hematocrit value greater than 55% may lead to inaccurate results in coagulation testing. Patients having hematocrit values >55% require a special collection tube for coagulation studies. Please contact the laboratory at [phone] for redraw instructions. PERFORMED BY: [place] [address] PATHOLOGIST CANDY DEPOSITING MACHINE OPERATOR BELLE BONDS M.D. Performed By: #### C BC, CK, HS TROP, PT, PTT #### [address] ECG 12 lead ECGon 11-30-2023 ECG 12 lead ECG [facility] Main [place] [address] [place] [address] Electrocardiograph Report Signed Patient: Yani Gerard MR#: [id number] 2749 : 1940 Acct:[id number] Age/Sex: 83 / F ADM Date: 11/30/23 Loc: Room: [address] [place] [address] Type: ADM IN Attending Dr: Megan Rubin DO Ordering Provider: Kem Hammond DO Date of Service: 11/30/2311/22/1050 ECG/ECG 12 lead ECG: stroke alert Copies to: Test Reason : Blood Pressure : 159/071 mmHG Vent. Rate : 059 BPM Atrial Rate : 059 BPM P-R Int : 180 ms QRS Dur : 088 ms QT Int : 458 ms P-R-T Axes : 062 072 085 degrees QTc Int : 453 ms Sinus bradycardia Nonspecific ST abnormality Abnormal ECG When compared with ECG of 15-NOV-2023 09:01, QT has lengthened Confirmed by Kem Hammond DO ([id number]) on 11/30/2023 2:56:22 PM Referred By: Electronically Signed By:Kem Hammond DO Transcribed By: MUS Signed By Kem Hammond DO 4 1456 Normal [facility] Erythrocyte distribution wid th [Ratio] by Automated countOrdered By: Kem Hammond on 11-30-2023 Erythrocyte distribution width (RBC) [Ratio] 13.8 % Normal 11.9-15.3 [facility] Comment on above: Performed By: #### C BC, PT, PTT, CMP, CK, HS TROP #### [facility] [address] Erythrocytes [#/volume] in B lood by Automated countOrdered By: Kem Hammond on 11-30-2023 RBC (Bld) [#/Vol] 4.28 10*6/uL Normal 3.60-5.00 [facility] Comment on above: Performed By: #### C BC, PT, PTT, CMP, CK, HS TROP #### [facility] [address] [place] [address] [place] Glucose [Mass/volume] in Ser um or PlasmaOrdered By: Kem Hammond on 11-30-2023 Glucose [Mass/Vol] 100 mg/dL Normal 70-100 [facility] Comment on above: ADA recommended refe rence rangeRandom Glucose Reference Range is dependent on time and content of last meal. Glucose of more than 200 mg/dL in a nonstressed, ambulatory subject supports the diagnosis of Diabetes Mellitus. Result Comment: [place] om Glucose Reference Range is dependent on time and content of last meal. Glucose of more than 200 mg/dL in a nonstressed, ambulatory subject supports the diagnosis of Diabetes Mellitus. ADA recommended reference range Performed By: #### A DDONUAPLUS, CUU #### [facility] [address] [place] [address] [place] Hematocrit [Volume Fraction] of Blood by Automated countOrdered By: Kem Hammond on 11-30-2023 Hematocrit (Bld) [Volume fraction] 41.7 % Normal 34.0-46.4 [facility] Comment on above: Performed By: #### C BC, PT, PTT, CMP, CK, HS TROP #### [facility] [address] Hemoglobin [Mass/volume] in BloodOrdered By: Kem Hammond on 11-30-2023 Hemoglobin (Bld) [Mass/Vol] 14.5 g/dL Normal 11.8-15.4 [facility] Comment on above: Performed By: #### C BC, PT, PTT, CMP, CK, HS TROP #### [facility] [address] INR in Platelet poor plasma by Coagulation assayOrdered By: Kem Hammond on 11-30-2023 INR Coag (PPP) [Relative time] 1.0 {INR} Normal [facility] Comment on above: INR Therapeutic Rang e A) Pre- and Peroperative OAT started two weeks before surgery. NOT HIP SURGERY: 1.5 - 2.5 HIP SURGERY: 2 - 3B) Primary and secondary prevention of venous THROMBOSIS: 2 - 3C) Active venous thrombosis, pulmonary embolismand prevention of recurrent venous thrombosis: 2 - 3D) Prevention of arterial thromboembolismincluding patients with mechanical heart valves: 3 - 4.5 Result Comment: INR Therapeutic Range A) Pre- and Peroperative OAT started two weeks before surgery. NOT HIP SURGERY: 1.5 - 2.5 HIP SURGERY: 2 - 3 B) Primary and secondary prevention of venous THROMBOSIS: 2 - 3 C) Active venous thrombosis, pulmonary embolism and prevention of recurrent venous thrombosis: 2 - 3 D) Prevention of arterial thromboembolism including patients with mechanical heart valves: 3 - 4.5 Performed By: #### C BC, PT, PTT, CMP, CK, HS TROP #### [facility] [address] Leukocytes [#/volume] correc dorian for nucleated erythrocytes in Blood by Automated counOrdered By: Kem Hammond on 11-30-2023 WBC corrected for nucl RBC Auto (Bld) [#/Vol] 4.3 10*3/uL 3.8-11.6 [facility] Leukocytes [#/volume] in Blo od by Automated countOrdered By: Kem Hammond on 11-30-2023 WBC (Bld) [#/Vol] 4.3 10*3/uL Normal 3.8-11.6 [facility] Comment on above: Performed By: #### C BC, PT, PTT, CMP, CK, HS TROP #### [facility] [address] [place] [address] Lymphocytes [#/volume] in Bl ood by Automated countOrdered By: Kem Hammond on 11-30-2023 Lymphocytes (Bld) [#/Vol] 0.9 10*3/uL Low 1.00-4.8 [facility] Comment on above: Performed By: #### C BC, PT, PTT, CMP, CK, HS TROP #### [facility] [address] [place] [address] Lymphocytes/100 leukocytes i n Blood by Automated countOrdered By: Kem Hammond on 11-30-2023 Lymphocytes/100 WBC (Bld) 21.3 % Normal . [facility] Comment on above: Performed By: #### C BC, PT, PTT, CMP, CK, HS TROP #### [facility] [address] [place] [address] [place] MCH [Entitic mass] by Automa dorian countOrdered By: Kem Hammond on 11-30-2023 MCH (RBC) [Entitic mass] 33.8 pg Normal 24.7-34.3 [facility] Comment on above: Performed By: #### C BC, PT, PTT, CMP, CK, HS TROP #### [facility] [address] [place] [address] MCHC Auto (RBC) [Mass/Vol]Or dered By: Kem Hammond on 11-30-2023 MCHC (RBC) [Mass/Vol] 34.7 g/dL 32.0-35.0 [facility] MCV [Entitic volume] by Auto mated countOrdered By: Kem Hammond on 11-30-2023 MCV (RBC) [Entitic vol] 97.5 fL Normal 80-100 [facility] Comment on above: Performed By: #### C BC, PT, PTT, CMP, CK, HS TROP #### [facility] [address] Monocyte distribution width [Entitic volume] in Blood by AutomatedOrdered By: Kem Hammond on 11-30-2023 Monocyte distribution width Auto (Bld) [Entitic vol] 18.82 % 0.00-20.00 [facility] Neutrophils [#/volume] in Bl ood by Automated countOrdered By: Kem Hammond on 11-30-2023 Neutrophils (Bld) [#/Vol] 2.9 10*3/uL Normal 1.8-7.7 [facility] Comment on above: Performed By: #### C BC, PT, PTT, CMP, CK, HS TROP #### [facility] [address] No Panel InformationOrdered By: Kem Hammond on 11-30-2023 Estimated GFR (CKD-EPI) > 60.0 mL/Min [facility] Creatinine Clearance (Chem 48.58 [facility] Nucleated erythrocytes [Pres ence] in Blood by Automated countOrdered By: Kem Hammond on 11-30-2023 Nucleated RBC Auto Ql (Bld) 0.1 /100{WBC} 0-0.5 [facility] Partial Thromboplastin Timeo n 11-30-2023 aPTT Coag (Bld) [Time] 35.0 s Normal 25.1-36.5 [facility] Comment on above: Result Comment: A he matocrit value greater than 55% may lead to inaccurate results in coagulation testing. Patients having hematocrit values >55% require a special collection tube for coagulation studies. Please contact the laboratory at [phone] for redraw instructions. PERFORMED BY: [place] [address] PATHOLOGIST CANDY DEPOSITING MACHINE OPERATOR BELLE BONDS M.D. Performed By: #### A ULYSSES PAEZ #### [facility] [address] [place] [address] Platelet mean volume [Entiti c volume] in Blood by Automated countOrdered By: Kem Hammond on 11-30-2023 Platelet mean volume (Bld) [Entitic vol] 8.7 fL Normal 6.3-10.7 [facility] Comment on above: Performed By: #### C BC, PT, PTT, CMP, CK, HS TROP #### [facility] [address] [place] [id number] [place] Platelets [#/volume] in Bloo d by Automated countOrdered By: Kem Hammond on 11-30-2023 Platelets (Bld) [#/Vol] 209 10*3/uL Normal 150-450 [facility] Comment on above: Performed By: #### C BC, PT, PTT, CMP, CK, HS TROP #### [facility] [address] [place] [address] [place] Potassium [Moles/volume] in Serum or PlasmaOrdered By: Kem Hammond on 11-30-2023 Potassium [Moles/Vol] 4.2 mmol/L Normal 3.5-5.1 [facility] Comment on above: Performed By: #### A DDONUAPLUS, CUU #### [facility] [address] [place] [id number] [facility] Protein [Mass/volume] in Ser um or PlasmaOrdered By: Kem Hammond on 11-30-2023 Protein [Mass/Vol] 6.9 g/dL Normal 6.4-8.9 [facility] Comment on above: Performed By: #### A DDONUAPLUS, CUU #### [facility] [address] [place] [id number] [facility] Prothrombin time (PT)Ordered By: Kem Hammond on 11-30-2023 PT Coag (PPP) [Time] 11.5 s Normal 9.0-12.9 [facility] Comment on above: A hematocrit value g reater than 55% may lead to inaccurate results in coagulation testing. Patients having hematocrit values >55% require a special collection tube for coagulation studies. Please contact the laboratory at [phone] for redraw instructions. Result Comment: A he matocrit value greater than 55% may lead to inaccurate results in coagulation testing. Patients having hematocrit values >55% require a special collection tube for coagulation studies. Please contact the laboratory at [phone] for redraw instructions. Performed By: #### C BC, PT, PTT, CMP, CK, HS TROP #### [address] Serum globulin measurement b y calculation (mass/volume)Ordered By: Kem Hammond on 11-30-2023 Globulin (S) [Mass/Vol] 2.6 g/dL [facility] Comment on above: Performed By: #### A DDONUAPLUS, CUU #### [address] Serum or plasma albumin/glob ulin mass ratioOrdered By: Kem Hammond on 11-30-2023 Albumin/Globulin [Mass ratio] 1.7 {ratio} [facility] Comment on above: Performed By: #### A DDONUAPLUS, CUU #### [address] Serum or plasma anion gap de terminationOrdered By: Kem Hammond on 11-30-2023 Anion gap [Moles/Vol] 8.3 mmol/L Normal 6.0-15.0 [facility] Comment on above: Performed By: #### A CODYPLUS, CUU #### [address] Sodium [Moles/volume] in Ser um or PlasmaOrdered By: Kem Hammond on 11-30-2023 Sodium [Moles/Vol] 138 mmol/L Normal 136-145 [facility] Comment on above: Performed By: #### A DDONUAPLUS, CUU #### [address] Troponin I High Sensitivityo n 11-30-2023 Troponin I High Sensitivity 6.7 pg/mL Normal 0.0-15.0 [facility] Comment on above: Result Comment: PERF ORMED BY: [place] [address] PATHOLOGIST CANDY DEPOSITING MACHINE OPERATOR JIANLAN SUN M.D. Performed By: #### A DDONUAPLUS, CUU #### [facility] [address] Troponin I.cardiac [Mass/vol ume] in Serum or Plasma by Detection limit <= 0.01 ng/Ordered By: Kem Hammond on 11-30-2023 Troponin I.cardiac DL <= 0.01 ng/mL [Mass/Vol] 6.7 pg/mL 0.0-15.0 [facility] Urea nitrogen [Mass/volume] in Serum or PlasmaOrdered By: Kem Hammond on 11-30-2023 Urea nitrogen [Mass/Vol] 14 mg/dL Normal 7-25 [facility] Comment on above: Performed By: #### A PHILIPPE, CUU #### [facility] [address] [place] [address] CNOVon 11-27-2023 CNOV Office Visit (NEUSEF ) ----- YANI GERARD ([id number]) 1940 F Date Time Provider Department 11/27/23 9:20 AM AGUSTÍN ORNELAS During your visit today, we recorded the following information about you: Temperature Pulse Blood pressure Weight 97.6 degrees 58/minute 138/64 70.3 kg Height 1.562 m Jaki Higgins Ma 11/27/2023 12:35 PM Signed Agustín Ornelas MD 11/27/2023 12:35 PM Signed [facility] Initial Outpatient Visit Yani Gerard [facility]#: [id number] Date of Service: 11/27/2023 Primary Care Provider: Kyle Amin MD [address] [facility] [address] [place] [address] The patient was referred by Jayden Burks MD for opinion regarding intracranial stenosis. I will provide a written report of my findings to the referring through letter, e communication, or epic. OUTPATIENT CONSULTATION Chief complaint: Intracranial stenosis History of present illness: Mrs. 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 The patient does not have a history of strokes or TIAs, but in mid September 2023 she experienced sudden onset left leg shaking, slurred speech and difficulty expressing herself. This lasted for about 24 hours. She also noted that both of her hands were shaking at times and she was stuttering in her speech. About a week later, she had a similar spell and she was switched from baby aspirin that she had been taking for years, to aspirin 325 mg/day. A few weeks later, in the second half of October 2023, her symptoms happened again, although in a milder form, and lasted only about 6-7 hours. Her left leg shaking at this time was already better after an hour. At this time, daily Plavix was added to her medication regimen. She has not had any recurrent symptoms since then. Her events have not been associated with low blood sugar, but her blood pressure was not routinely checked at the time of her events to detect hypotension. The patient has a history of cardiac stenting and heart attack. She used to be on Plavix, but it was discontinued about a year or 2 ago due to bruising. As of note, the patient developed diplopia on the right lateral gaze, and brain MRI showed no underlying lesion. Her vision was corrected with glasses. She walks with a cane at baseline. Hypertension Y Coronary Artery Disease Y Diabetes NA Obesity NA Dyslipidemia NA Tobacco Use (Please Update Smoking History) NA Stroke NA Intracranial Aneurysm NA Past Medical History: ACTIVE PROBLEM LIST Actinic Keratosis Other Specified Disease of Sebaceous Glands Htn (Hypertension) Hyperlipidemia Statin Myopathy Preoperative Cardiovascular Examination Cad (Coronary Artery Disease) Abnormality of Gait Clear Outcomes Study, PI: Eva Fischer MD Divergence Insufficiency Paroxysmal Supraventricular Tachycardia Unstable Angina (Hcc) PAST SURGICAL HISTORY Procedure Laterality Date CC CORONARY STENT 03/28/2019 LAD prox stent , RCA nondominant bifurcating severe disease [facility] -No restenosis in stent lad mild disease 06/14/23 POST-CATARACT LASER SURGERY Bilateral REMV CATARACT EXTRACAP,INSERT LENS Bilateral 2015 REVISE TOTAL HIP REPLACEMENT Right TOTAL HIP REPLACEMENT Right Allergies: Zetia [Ezetimibe], Gabapentin, Pramipexole, Ropinirole, Txzxepi-Jmv-Kly Reductase Inhibitors, and Sulfa (Sulfonamide Antibiotics) Medications: Current Outpatient Medications Medication Sig clopidogrel (PLAVIX) 75 mg tablet Take 75 mg by mouth once daily. Magnesium 200 mg tab Take 2 tablets by mouth once daily. aspirin 81 mg chewable tablet Aspirin Active 81 MG PO Daily March 27, 2019 11:00pm evolocumab (REPATHA SYRINGE) 140 mg/mL Inject 140 mg subcutaneously every 2 weeks. evolocumab (REPATHA SURECLICK) 140 mg/mL pen injector Inject 140 mg subcutaneously as directed. Inject 1 pen subcu every 2 wks amLODIPine (NORVASC) 10 mg tablet Take 1 tablet by mouth once daily. isosorbide mononitrate ER (IMDUR) 30 mg 24 hr tablet Take 1 tablet by mouth once daily. metoprolol succinate ER (TOPROL XL) 50 mg 24 hr tablet Take 1 tablet by mouth once daily. ezetimibe (ZETIA) 10 mg tablet Take 1 tablet by mouth once daily. ranolazine SR (RANEXA) 1,000 mg tab ER 12 hr Take 1 tablet by mouth twice daily. nitroglycerin sublingual (NITROQUICK) 0.3 mg SL tablet Dissolve 1 tablet under the tongue every 5 minutes as needed for chest pain. lksxhjenijv-fimifskte-dfo anter (TRELEGY ELLIPTA) 100-62.5-25 mcg inhalation powder Inhale 1 Puff as instructed. furosemide (LASIX) 20 mg tablet Take 1 tablet by mouth once daily. losartan (COZAAR) 25 mg tablet Take 2 tablets by mouth twice daily. cholecalciferol, vitamin D3, (VITAMIN D3 ORAL) Take by mouth. Ascorbic Acid (VITAMIN C) 100 mg tablet Take 1 (more content not included)... Normal [facility] Activated partial thrombopla stin time (aPTT) in platelet poor plasma by coagulation aOrdered By: Azar Wyatt on 11-15-2023 aPTT Coag (PPP) [Time] 33.8 s 25.1-36.5 [facility] Comment on above: A hematocrit value g reater than 55% may lead to inaccurate results in coagulation testing. Patients having hematocrit values >55% require a special collection tube for coagulation studies. Please contact the laboratory at [phone] for redraw instructions. Alanine aminotransferase [En zymatic activity/volume] in Serum or PlasmaOrdered By: Azar Wyatt on 11-15-2023 ALT [Catalytic activity/Vol] 19 U/L Normal 7-52 [facility] Comment on above: Performed By: #### C BC, CK, HS TROP, PT, PTT #### [facility] [address] Albumin [Mass/volume] in Ser um or Plasma by Bromocresol green (BCG) dye binding methoOrdered By: Azar Wyatt on 11-15-2023 Albumin BCG dye [Mass/Vol] 4.3 g/dL 3.5-5.7 [facility] Alkaline phosphatase [Enzyma tic activity/volume] in Serum or PlasmaOrdered By: Azar Wyatt on 11-15-2023 ALP [Catalytic activity/Vol] 48 U/L Normal 34-104 [facility] Comment on above: Result Comment: PERF ORMED BY: [place] [address] PATHOLOGIST CANDY DEPOSITING MACHINE OPERATOR BELLE BONDS M.D. Performed By: #### C BC, CK, HS TROP, PT, PTT #### [facility] [address] [place] [address] Aspartate aminotransferase [ Enzymatic activity/volume] in Serum or PlasmaOrdered By: Azar Wyatt on 11-15-2023 AST [Catalytic activity/Vol] 16 U/L Normal 13-39 [facility] Comment on above: Performed By: #### C BC, CK, HS TROP, PT, PTT #### [facility] [address] [place] [address] Bilirubin.total [Mass/volume ] in Serum or PlasmaOrdered By: Azar Wyatt on 11-15-2023 Bilirubin [Mass/Vol] 0.5 mg/dL Normal 0.3-1.0 [facility] Comment on above: Performed By: #### C BC, CK, HS TROP, PT, PTT #### [facility] [address] [place] [address] CT angio headon 11-15-2023 CT angio head [facility] [place] [address] [place] [address] CT Scan Report Signed Patient: Yani Gerard MR#: [id number] : 1940 Acct:[id number] Age/Sex: 83 / F ADM Date: 11/15/23 Loc: Room: 5M8594-9 Type: ADM IN Attending Dr: Aaron Rod DO Copies to: DO Aaron Lerma DO Ordering Provider: Azar Wyatt DO Date of Service: 11/15/23 CT/CT angio neck: WEAkness ([id number]) CT/CT angio head: weakness CTA Head and Neck TECHNIQUE: Axial imaging of the head and neck with 2-D and 3-D reconstruction. 90cc of Isovue-370. The CT exam was performed using one or more the following dose reduction techniques: Automated exposure control, adjustment of the MA and/or Kv according to patient size, or use of the iterative reconstruction technique. Stenoses were measured using the NASCET criteria. COMPARISON: 10/19/2023 HISTORY: Stroke alert. Slurred speech. Weakness. The visualized aortic arch and great vessels are unremarkable. Subclavian arteries are patent Similar calcified plaquing of the carotid bifurcations with 50% stenosis of the origin of the right internal carotid artery and near 50% stenosis of the left internal carotid artery. Tortuosity of internal carotid arteries. No vertebral dissection, occlusion or abrupt cut off identified. Calcified plaquing of origins of the vertebral arteries bilaterally. The carotid siphons and vertebral basilar systems are patent. Atherosclerosis of the carotid siphons without significant narrowing. No intracranial aneurysm, dissection, abrupt cut off or critical stenosis identified.. Persistent bilateral posterior cerebral artery circulation.. CT/CT angio neck IMPRESSION: No developing occlusion, critical stenosis or dissection of the extracranial or intracranial circulation. Similar calcified plaquing of carotid bifurcations near 50% stenoses of the origins of the internal carotid arteries. Impression dictated by: Richard Haji M.D.11/15/2023 12:00 PM Dictation Location: [place] [address] Transcribed By: [facility] 11/15/23 1200 Dictated By: Richard Haji DO 11/15/23 1151 Signed By: 11/15/23 1200 Normal [facility] CT head stroke alert wo cono n 11-15-2023 CT head stroke alert wo con [facility] [place] [address] [place] [address] CT Scan Report Signed Patient: Yani Gerard MR#: [id number] : 1940 Acct:[id number] Age/Sex: 83 / F ADM Date: 11/15/23 Loc: Room: [address] [place] [address] Type: ADM IN Attending Dr: Aaron Rod DO Copies to: DO Aaron Lerma DO Ordering Provider: Azar Wyatt DO Date of Service: 11/15/23 CT/CT head stroke alert wo con: WEAKNESS Unenhanced head CTstroke alert TECHNIQUE: Contiguous axial imaging of the head. The CT exam was performed using one or more the following dose reduction techniques: Automated exposure control, adjustment of the MA and/or Kv according to patient size, or use of the iterative reconstruction technique. COMPARISON: MRI the brain 10/20/2023 HISTORY: Last known well 8 a.m. Slurred speech. Weakness. VENTRICLES: Within normal limits ATROPHY: Similar mild atrophy BRAIN PARENCHYMA: Decreased density of the white matter is most consistent with chronic small vessel disease. 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 HEMORRHAGE: None HERNIATION: No mass effect or herniation INFARCTION: No recent vascular distribution infarction is seen. EXTRA-AXIAL FLUID COLLECTIONS None MIDBRAIN: Unremarkable MILAN: Unremarkable MEDULLA: Unremarkable SINUSES: Unremarkable ORBITS: Grossly unremarkable MASTOIDS: Unremarkable BONY STRUCTURES Intact ADDITIONAL FINDINGS: Atherosclerosis of carotid siphons. CT/CT head stroke alert wo con IMPRESSION: No acute findings. Diffuse atrophy and chronic small vessel ischemic changes with remote lacunar type infarctions in the periventricular white matter. Preliminary findings given at a 845 AM 11/15/2023. Impression dictated by: Richard Haji M.D.11/15/2023 11:51 AM Dictation Location: [place] [address] Transcribed By: [facility] 11/15/23 1151 Dictated By: Richard Haji DO 11/15/23 1145 Signed By: 11/15/23 1151 Normal [facility] Calcium [Mass/volume] in Ser um or PlasmaOrdered By: Azar Wyatt on 11-15-2023 Calcium [Mass/Vol] 9.1 mg/dL Normal 8.6-10.3 [facility] Comment on above: Performed By: #### C BC, CK, HS TROP, PT, PTT #### [facility] [address] Carbon dioxide, total [Moles /volume] in Serum or PlasmaOrdered By: Azar Wyatt on 11-15-2023 CO2 [Moles/Vol] 29.5 mmol/L Normal 21.0-31.0 [facility] Comment on above: Performed By: #### C BC, CK, HS TROP, PT, PTT #### [address] Chloride [Moles/volume] in S joanne or PlasmaOrdered By: Azar Wyatt on 11-15-2023 Chloride [Moles/Vol] 101 mmol/L Normal 98-107 [facility] Comment on above: Performed By: #### C BC, CK, HS TROP, PT, PTT #### [address] Comprehensive Metabolic Pane jeffrey 11-15-2023 Albumin [Mass/Vol] 4.3 g/dL Normal 3.5-5.7 [facility] Comment on above: Performed By: #### C BC, CK, HS TROP, PT, PTT #### [address] GFR/1.73 sq M.predicted MDRD (S/P/Bld) [Vol rate/Area] mL/min/{1.73_m2} Normal [facility] Comment on above: Performed By: #### C BC, CK, HS TROP, PT, PTT #### [address] Creatinine [Mass/volume] in Serum or PlasmaOrdered By: Azar Wyatt on 11-15-2023 Creatinine [Mass/Vol] 0.77 mg/dL Normal 0.60-1.20 [facility] Comment on above: Performed By: #### C BC, CK, HS TROP, PT, PTT #### [facility] [address] [place] [id number] [facility] ECG 12 lead ECGon 11-15-2023 ECG 12 lead ECG [facility] [place] [address] [place] [address] Electrocardiograph Report Signed Patient: Yani Gerard MR#: [id number] : 1940 Acct:[id number] Age/Sex: 83 / F ADM Date: 11/15/23 Loc: Room: [address] [place] [address] Type: ADM INOo Attending Dr: Aaron Rod DO Ordering Provider: Azar Wyatt DO Date of Service: 11/15/23 ECG/ECG 12 lead ECG: . Copies to: Test Reason : Blood Pressure : 139/065 mmHG Vent. Rate : 061 BPM Atrial Rate : 061 BPM P-R Int : 178 ms QRS Dur : 092 ms QT Int : 352 ms P-R-T Axes : 074 062 090 degrees QTc Int : 354 ms Normal sinus rhythm Confirmed by Azar WYATT DO ([id number]) on 11/15/2023 2:21:34 PM Referred By: Electronically Signed By:Azar WYATT DO Transcribed By: MUS Signed By Azar Wyatt DO 0 11/15/23 1421 Normal [facility] Erythrocyte distribution wid th [Ratio] by Automated countOrdered By: Azar Wyatt on 11-15-2023 Erythrocyte distribution width (RBC) [Ratio] 13.3 % Normal 11.9-15.3 [facility] Comment on above: Performed By: #### C BC, CK, HS TROP, PT, PTT #### [facility] [address] [place] [address] [place] Erythrocytes [#/volume] in B lood by Automated countOrdered By: Azar Wyatt on 11-15-2023 RBC (Bld) [#/Vol] 4.29 10*6/uL Normal 3.60-5.00 [facility] Comment on above: Performed By: #### C BC, CK, HS TROP, PT, PTT #### [place] [address] Glucose [Mass/volume] in Ser um or PlasmaOrdered By: Azar Wyatt on 11-15-2023 Glucose [Mass/Vol] 115 mg/dL High 70-100 [facility] Comment on above: ADA recommended refe rence rangeRandom Glucose Reference Range is dependent on time and content of last meal. Glucose of more than 200 mg/dL in a nonstressed, ambulatory subject supports the diagnosis of Diabetes Mellitus. Result Comment: [place] om Glucose Reference Range is dependent on time and content of last meal. Glucose of more than 200 mg/dL in a nonstressed, ambulatory subject supports the diagnosis of Diabetes Mellitus. ADA recommended reference range Performed By: #### C BC, CK, HS TROP, PT, PTT #### [address] Hematocrit [Volume Fraction] of Blood by Automated countOrdered By: Azar Wyatt on 11-15-2023 Hematocrit (Bld) [Volume fraction] 42.2 % Normal 34.0-46.4 [facility] Comment on above: Performed By: #### C BC, CK, HS TROP, PT, PTT #### [address] Hemoglobin [Mass/volume] in BloodOrdered By: Azar Wyatt on 11-15-2023 Hemoglobin (Bld) [Mass/Vol] 14.5 g/dL Normal 11.8-15.4 [facility] Comment on above: Performed By: #### C BC, CK, HS TROP, PT, PTT #### [address] Hemogram CBC Without Diffon 11-15-2023 Mean Corpuscular HGB Conc 34.5 g/dL Normal 32.0-35.0 [facility] Comment on above: Performed By: #### C BC, CK, HS TROP, PT, PTT #### [address] WBC (Bld) [#/Vol] 5.6 10*3/uL Normal 3.8-11.6 [facility] Comment on above: Performed By: #### C BC, CK, HS TROP, PT, PTT #### [facility] [address] INR in Platelet poor plasma by Coagulation assayOrdered By: Azar Wyatt on 11-15-2023 INR Coag (PPP) [Relative time] 1.0 {INR} Normal [facility] Comment on above: INR Therapeutic Rang e A) Pre- and Peroperative OAT started two weeks before surgery. NOT HIP SURGERY: 1.5 - 2.5 HIP SURGERY: 2 - 3B) Primary and secondary prevention of venous THROMBOSIS: 2 - 3C) Active venous thrombosis, pulmonary embolismand prevention of recurrent venous thrombosis: 2 - 3D) Prevention of arterial thromboembolismincluding patients with mechanical heart valves: 3 - 4.5 Result Comment: INR Therapeutic Range A) Pre- and Peroperative OAT started two weeks before surgery. NOT HIP SURGERY: 1.5 - 2.5 HIP SURGERY: 2 - 3 B) Primary and secondary prevention of venous THROMBOSIS: 2 - 3 C) Active venous thrombosis, pulmonary embolism and prevention of recurrent venous thrombosis: 2 - 3 D) Prevention of arterial thromboembolism including patients with mechanical heart valves: 3 - 4.5 Performed By: #### C BC, CK, HS TROP, PT, PTT #### [facility] [address] [place] [address] Leukocytes [#/volume] correc dorian for nucleated erythrocytes in Blood by Automated counOrdered By: Azar Wyatt on 11-15-2023 WBC corrected for nucl RBC Auto (Bld) [#/Vol] 5.6 10*3/uL 3.8-11.6 [facility] MCH [Entitic mass] by Automa dorian countOrdered By: Azar Wyatt on 11-15-2023 MCH (RBC) [Entitic mass] 33.9 pg Normal 24.7-34.3 [facility] Comment on above: Performed By: #### C BC, CK, HS TROP, PT, PTT #### [facility] [address] [place] [address] MCHC Auto (RBC) [Mass/Vol]Or dered By: Azar Wyatt on 11-15-2023 MCHC (RBC) [Mass/Vol] 34.5 g/dL 32.0-35.0 [facility] MCV [Entitic volume] by Auto mated countOrdered By: Azar Wyatt on 11-15-2023 MCV (RBC) [Entitic vol] 98.3 fL Normal 80-100 [facility] Comment on above: Performed By: #### C BC, CK, HS TROP, PT, PTT #### [address] No Panel InformationOrdered By: Azar Wyatt on 11-15-2023 Estimated GFR (CKD-EPI) > 60.0 mL/Min [facility] Creatinine Clearance (Chem N/A [facility] Partial Thromboplastin Timeo n 11-15-2023 aPTT Coag (Bld) [Time] 33.8 s Normal 25.1-36.5 [facility] Comment on above: Result Comment: A he matocrit value greater than 55% may lead to inaccurate results in coagulation testing. Patients having hematocrit values >55% require a special collection tube for coagulation studies. Please contact the laboratory at [phone] for redraw instructions. PERFORMED BY: [place] [address] PATHOLOGIST CANDY DEPOSITING MACHINE OPERATOR BELLE BONDS M.D. Performed By: #### C BC, CK, HS TROP, PT, PTT #### [address] Platelet mean volume [Entiti c volume] in Blood by Automated countOrdered By: Azar Wyatt on 11-15-2023 Platelet mean volume (Bld) [Entitic vol] 9.4 fL Normal 6.3-10.7 [facility] Comment on above: Result Comment: PERF ORMED BY: [place] [address] PATHOLOGIST CANDY DEPOSITING MACHINE OPERATOR BELLE BONDS M.D. Performed By: #### C BC, CK, HS TROP, PT, PTT #### [address] Platelets [#/volume] in Bloo d by Automated countOrdered By: Azar Wyatt on 11-15-2023 Platelets (Bld) [#/Vol] 238 10*3/uL Normal 150-450 [facility] Comment on above: Performed By: #### C BC, CK, HS TROP, PT, PTT #### [facility] [address] Potassium [Moles/volume] in Serum or PlasmaOrdered By: Azar Wyatt on 11-15-2023 Potassium [Moles/Vol] 4.3 mmol/L Normal 3.5-5.1 [facility] Comment on above: Performed By: #### C BC, CK, HS TROP, PT, PTT #### [address] Protein [Mass/volume] in Ser um or PlasmaOrdered By: Azar Wyatt on 11-15-2023 Protein [Mass/Vol] 6.7 g/dL Normal 6.4-8.9 [facility] Comment on above: Performed By: #### C BC, CK, HS TROP, PT, PTT #### [address] Prothrombin time (PT)Ordered By: Azra Wyatt on 11-15-2023 PT Coag (PPP) [Time] 11.7 s Normal 9.0-12.9 [facility] Comment on above: A hematocrit value g reater than 55% may lead to inaccurate results in coagulation testing. Patients having hematocrit values >55% require a special collection tube for coagulation studies. Please contact the laboratory at [phone] for redraw instructions. Result Comment: A he matocrit value greater than 55% may lead to inaccurate results in coagulation testing. Patients having hematocrit values >55% require a special collection tube for coagulation studies. Please contact the laboratory at [phone] for redraw instructions. Performed By: #### C BC, CK, HS TROP, PT, PTT #### [address] Serum globulin measurement b y calculation (mass/volume)Ordered By: Azar Wyatt on 11-15-2023 Globulin (S) [Mass/Vol] 2.4 g/dL Normal [facility] Comment on above: Performed By: #### C BC, CK, HS TROP, PT, PTT #### [address] Serum or plasma albumin/glob ulin mass ratioOrdered By: Azar Wyatt on 11-15-2023 Albumin/Globulin [Mass ratio] 1.8 {ratio} Normal [facility] Comment on above: Performed By: #### C BC, CK, HS TROP, PT, PTT #### [address] Serum or plasma anion gap de terminationOrdered By: Azar Wyatt on 11-15-2023 Anion gap [Moles/Vol] 11.8 mmol/L Normal 6.0-15.0 [facility] Comment on above: Performed By: #### C BC, CK, HS TROP, PT, PTT #### [address] Sodium [Moles/volume] in Ser um or PlasmaOrdered By: Azar Wyatt on 11-15-2023 Sodium [Moles/Vol] 138 mmol/L Normal 136-145 [facility] Comment on above: Performed By: #### C BC, CK, HS TROP, PT, PTT #### [address] Troponin I High Sensitivityo n 11-15-2023 Troponin I High Sensitivity 5.7 pg/mL Normal 0.0-15.0 [facility] Comment on above: Result Comment: PERF ORMED BY: [place] [address] PATHOLOGIST CANDY DEPOSITING MACHINE OPERATOR BELLE BONDS M.D. Performed By: #### C BC, CK, HS TROP, PT, PTT #### [address] Troponin I.cardiac [Mass/vol ume] in Serum or Plasma by Detection limit <= 0.01 ng/Ordered By: Azar Wyatt on 11-15-2023 Troponin I.cardiac DL <= 0.01 ng/mL [Mass/Vol] 5.7 pg/mL 0.0-15.0 [facility] Urea nitrogen [Mass/volume] in Serum or PlasmaOrdered By: Azar Wyatt on 11-15-2023 Urea nitrogen [Mass/Vol] 17 mg/dL Normal 7- [facility] Comment on above: Performed By: #### C BC, CK, HS TROP, PT, PTT #### [address] XR chest 1V portableon 11-15 XR chest 1V portable [facility] Main [place] [address] [place] [address] XRay Report Signed Patient: Yani Gerard MR#: [id number] : 1940 Acct:[id number] Age/Sex: 83 / F ADM Date: 11/15/23 Loc: Room: [address] [place] [address] Type: ADM IN Attending Dr: Aaron Rod DO Copies to: DO Aaron Lerma DO Ordering Provider: Azar Wyatt DO Date of Service: 11/15/23 XR/XR chest 1V portable: STROKE ALERT SINGLE VIEW CHEST CLINICAL HISTORY: Stroke alert. COMPARISON: Chest 10/19/2023 FINDINGS: Cardiomegaly with vascular congestion/interstitial changes similar to the prior study. No new consolidation pneumothorax pleural effusion or free air. XR/XR chest 1V portable IMPRESSION: CHF FINDINGS GROSSLY UNCHANGED FROM THE PRIOR STUDY. Impression dictated by: Sorin Jones Jr., D.OSincere11/15/2023 12:21 PM Dictation Location: [place] [address] Transcribed By: [facility] 11/15/23 1221 Dictated By: Sorin Jones Jr, DO 11/15/23 1221 Signed By: 11/15/23 1221 Normal [facility] A1C with Estimated Average G gloria 10-20-2023 Glucose [Mass/Vol] 108 mg/dL Normal [facility] Comment on above: Result Comment: PERF ORMED BY: [place] [address] PATHOLOGIST CANDY DEPOSITING MACHINE OPERATOR BELLE BONDS M.D. Performed By: #### A PHILIPPE CUU #### [facility] [address] [place] [id number] [place] Cholesterol [Mass/volume] in Serum or PlasmaOrdered By: Yuni Lundberg on 10-20-2023 Cholesterol [Mass/Vol] 138 mg/dL Low 140-200 [facility] Comment on above: Chol less than 200 m g/dl low riskChol 201-239 mg/dl borderline riskChol 240 mg/dl and greater high risk Order Comment: FASTI NG Y Result Comment: Chol less than 200 mg/dl low risk Chol 201-239 mg/dl borderline risk Chol 240 mg/dl and greater high risk Performed By: #### A DDONUAPLUS, CUU #### [facility] [address] [place] [id number] [facility] Cholesterol in LDL Calc [Mas s/Vol]Ordered By: Yuni Lundberg on 10-20-2023 Cholesterol in LDL [Mass/Vol] 52 mg/dL 0-100 [facility] Comment on above: LDL ATP III CLASSIFI CATIONLDL less than 100 mg/dL OptimalLDL 100-129 mg/dL Near or above optimalLDL 130-159 mg/dL Borderline highLDL 160-189 mg/dL HighLDL greater than 189 mg/dL Very high Cholesterol in VLDL Calc [Ma ss/Vol]Ordered By: Yuni Lundberg on 10-20-2023 Cholesterol in VLDL [Mass/Vol] 17 mg/dL [facility] ECH echo transthoracicon ECH echo transthoracic [facility] Main [place] [address] [place] [address] Echocardiogram Signed Patient: Yani Gerard MR#: [id number] : 1940 Acct:[id number] Age/Sex: 83 / F ADM Date: 10/19/23 Loc: Room: [address] [place] [address] Type: ADM IN Attending Dr: Yuni Lundberg MD Ordering Provider: Yuni Lundberg MD Date of Service: 10/19/23 ECH/ECH echo transthoracic: Neuro Symptoms/Deficit Copies to: Lico Siu MD, [facility] Yuni Lundberg MD BSA: 1.7 m2 BP: 128/77 mmHg HR: 55 Reason For Study: Neuro Symptoms/Deficit History: CAD. [place]. HTN. HLD. PCI. Family history of CAD. Interpretation Summary The left ventricular size, thickness and function are normal Ejection Fraction = 60-65%. The left atrium appears mildly dilated. Mild valvular aortic stenosis. The aortic valve peak velocity is 277 cm/s. The aortic valve maximum pressure gradient is 31 mmHg. The aortic valve mean gradient is 17 mmHg. No thrombus, vegetation or mass is seen. Procedure/Quality: A two-dimensional transthoracic echocardiogram with color flow and Doppler was performed. The study was technically good in quality. Left Ventricle: The left ventricular size, thickness and function are normal. Ejection Fraction = 60-65%. Left Atrium: The left atrium appears mildly dilated. The atrial septum appears normal. Right Atrium: The right atrium appears normal in size. Right Ventricle: The right ventricular size, thickness and function are normal. Aortic Valve: The aortic valve is trileaflet. The aortic valve is mildly calcified. Mild valvular aortic stenosis. The aortic valve peak velocity is 277 cm/s. The aortic valve maximum pressure gradient is 31 mmHg. The aortic valve mean gradient is 17 mmHg. Mitral Valve: There is mild to moderate mitral annular calcification. The mitral valve is mildly sclerotic. There is trace mitral regurgitation. Tricuspid Valve: The tricuspid valve is normal. There is trace tricuspid regurgitation. Pulmonic Valve: The pulmonic valve is not well seen, but is grossly normal. Arteries: The aortic root is normal size. Pericardium/Pleura: No pericardial effusion seen. There is no pleural effusion. IVC/Hepatic Viens: The IVC is normal in size with an inspiratory collapse of greater then 50%, suggesting normal right atrial pressure. Miscellaneous: No thrombus, vegetation or mass is seen. Measurements with Normals IVSd: 1.4 cm (0.7-1.1 cm)LVIDd: 4.7 cm (3.7-5.4 cm) LVPWd: 1.2 cm (0.7-1.1 cm)LVIDs: 3.0 cm (2.3-3.6 cm) LA dimension: 4.0 cm (2.3-4.0 cm)Ao root diam: 3.5 cm(2.0-3.6 cm) asc Aorta Diam: 3.6 cm(2.1-3.4cm) Doppler with Normals RVSP(TR): 31.0 mmHg (18-35mmHg) LV V1 max: 95.2 cm/sec (0.7-1.7m/s)MV E max shad: 109.0 cm/sec(0.8-1.3m/s) MV A max shad: 66.7 cm/sec(0.0-0.0m/s) MV E/A: 1.6 (<1.5) MMode/2D Measurements Calculations TAPSE: 2.0 cm FS: 35.8 % Ao root area: LVOT diam: 2.0 cm RV S Shad: EDV(Teich): 9.6 cm2 LVOT area: 3.2 cm2 12.2 cm/sec 102.7 ml ESV(Teich): 35.6 ml EF(Teich): 65.3 % __ LVLd ap4: 6.9 cm SV(MOD-sp4): LAV(MOD-sp2): LA A2 area: 19.7 cm2 EDV(MOD-sp4): 51.0 ml 52.7 ml LA length (vol): 84.4 ml 6.0 cm LVLs ap4: 5.6 cm ESV(MOD-sp4): 33.4 ml EF(MOD-sp4): 60.4 % Doppler Measurements Calculations MV dec time: MV max PG: E/E' lat: 13.1 MV dec slope: 0.23 sec 89.0 mmHg E/E' med: 17.8 481.7 cm/sec2 __ Ao V2 max: LV V1 max PG: MR max shad: TV max P.0 mmHg 276.9 cm/sec 3.6 mmHg 470.9 cm/sec Ao max PG: LV V1 mean PG: MR max P.7 mmHg 1.9 mmHg 88.7 mmHg Ao mean PG: LV V1 mean: 16.6 mmHg 65.0 cm/sec Ao V2 mean: LV V1 VTI: 19.9 cm 190.7 cm/sec Ao V2 VTI: 65.4 cm REMI(I,D): 0.97 cm2 REMI(V,D): 1.1 cm2 __ TR max shad: 264.7 cm/sec TR max P.0 mmHg RAP systole: 3.0 mmHg ___ Transcribed By: LAURITA Performed At: 10/20/23 1531 Signed By: Lico Siu MD, FACC 10/20/23 1635 Normal [facility] Glucose mean value [Mass/vol ume] in Blood Estimated from glycated hemoglobinOrdered By: Yuni Lundberg on 10-20-2023 Average glucose Estimated from glycated hemoglobin (Bld) [Mass/Vol] 108 mg/dL [facility] Hemoglobin A1c percentageOrd ered By: Yuni Lundberg on 10-20-2023 HbA1c (Bld) [Mass fraction] 5.4 % Normal 4.3-5.6 [facility] Comment on above: Increased risk for d iabetes: 5.7 - 6.4diabetes: >6.4glycemic control for adults with diabetes: <7.0 Result Comment: Incr eased risk for diabetes: 5.7 - 6.4 diabetes: >6.4 glycemic control for adults with diabetes: <7.0 Performed By: #### A DDONUAPLUS, CUU #### [facility] [address] Lipid Panelon 10-20-2023 LDL Cholesterol,Calculated 52 mg/dL Normal 0-100 [facility] Comment on above: Order Comment: FASTI NG Y Result Comment: LDL ATP III CLASSIFICATION LDL less than 100 mg/dL Optimal LDL 100-129 mg/dL Near or above optimal LDL 130-159 mg/dL Borderline high LDL 160-189 mg/dL High LDL greater than 189 mg/dL Very high Performed By: #### A DDONUAPLUS, CUU #### [facility] [address] Triglyceride w/Reflex 89 mg/dL Normal 0-149 [facility] Comment on above: Order Comment: FASTI NG Y Result Comment: TRIG ATP III CLASSIFICATION TRIG less than 150 mg/dL Normal TRIG 150-199 mg/dL Borderline high TRIG 200-500 mg/dL High TRIG greater than 500 mg/dL Very high Standard traceable to the Center for Disease Conrtrol and Prevention (CDC) test method. Performed By: #### A DDONUAPLUS, CUU #### [facility] [address] [place] [address] VLDL CHOLESTEROL 17 mg/dL Normal [facility] Comment on above: Order Comment: FASTI NG Y Performed By: #### A DDONUAPLUS, CUU #### [facility] [address] [place] [address] MR head/brain wo conon 10-20 MR head/brain wo con [facility] [place] [address] [place] [address] MRI Report Signed Patient: Yani Gerard MR#: [id number] : 1940 Acct:[id number] Age/Sex: 83 / F ADM Date: 10/19/23 Loc: Room: [address] [place] [address] Type: ADM IN Attending Dr: Yuni Lundberg MD Copies to: Yuni Lundberg MD Ordering Provider: Yuni Lundberg MD Date of Service: 10/20/23 MR/MR head/brain wo con: cva MR head/brain wo con 10/19/2023 2:51 PM SIGN AND SYMPTOMS: Unsteady gait, dizziness, slurred speech PROTOCOL: Multiplanar multisequence MR images of the brain were obtained without IV contrast. COMPARISON: 10/19/2012. FINDINGS: Extra axial spaces: Diffuse age-related cortical atrophy. Hemorrhage: None. Ventricular system: Within normal limits. Basal cisterns: Within normal limits and not effaced. Cerebral parenchyma: No acute intrarenal pathology. 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 Chronic microvascular ischemic changes are noted throughout the periventricular and subcortical white matter. There is diffuse age-related cortical atrophy. Midline shift: None.. Cerebellum: Within normal limits. Brainstem: Within normal limits. OTHER: Calvarium: Normal marrow signal. Vascular system: Satisfactory flow voids within the anterior and posterior circulation. Visualized Paranasal sinuses: Within normal limits. Visualized Orbits: Within normal limits. Visualized upper cervical spine: Within normal limits. Sella and skull base: Within normal limits. MR/MR head/brain wo con IMPRESSION: No acute intrarenal pathology. 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 Chronic microvascular ischemic changes are noted throughout the periventricular and subcortical white matter. There is diffuse age-related cortical atrophy. Impression dictated by: Fahad Soriano M.D.10/20/2023 1:58 PM Dictation Location: [place] [address] Transcribed By: DANIELE 10/20/23 1358 Dictated By: Fahad Soriano II, MD 10/20/23 1346 Signed By: 10/20/23 1358 Normal [facility] Serum or plasma high density lipoprotein (HDL) cholesterol measurementOrdered By: Yuni Lundberg on 10-20-2023 Cholesterol in HDL [Mass/Vol] 68 mg/dL Normal [facility] Comment on above: HDL CHOL ATP-III CLA SSIFICATION Cardiovascular RiskHDL > or equal to 60 mg/dL LOWHDL < 40 mg/dL HIGH Order Comment: STEFANY John Result Comment: HDL CHOL ATP-III CLASSIFICATION Cardiovascular Risk HDL > or equal to 60 mg/dL LOW HDL < 40 mg/dL HIGH Performed By: #### A PHILIPPE CUU #### [facility] [address] [place] [address] Serum or plasma total choles terol/high density lipoprotein (HDL) cholesterol mass ratOrdered By: Yuni Lundberg on 10-20-2023 Cholesterol.total/Chol esterol in HDL [Mass ratio] 2.0 {ratio} Normal <5.0 [facility] Comment on above: Order Comment: STEFANY John Result Comment: PERF ORMED BY: [place] [address] PATHOLOGIST CANDY DEPOSITING MACHINE OPERATOR BELLE BONDS M.D. Performed By: #### A PHILIPPE, CUU #### [facility] [address] [place] [address] Triglyceride [Mass/volume] i n Serum or PlasmaOrdered By: Yuni Lundberg on 10-20-2023 Triglyceride [Mass/Vol] 89 mg/dL 0-149 [facility] Comment on above: TRIG ATP III CLASSIF ICATIONTRIG less than 150 mg/dL NormalTRIG 150-199 mg/dL Borderline highTRIG 200-500 mg/dL High TRIG greater than 500 mg/dL Very highStandard traceable to the Center for Disease Conrtrol and Prevention (CDC) test method. Activated partial thrombopla stin time (aPTT) in platelet poor plasma by coagulation aOrdered By: Kem Hammond on 10-19-2023 aPTT Coag (PPP) [Time] 33.1 s 25.1-36.5 [facility] Comment on above: A hematocrit value g reater than 55% may lead to inaccurate results in coagulation testing. Patients having hematocrit values >55% require a special collection tube for coagulation studies. Please contact the laboratory at [phone] for redraw instructions. Alanine aminotransferase [En zymatic activity/volume] in Serum or PlasmaOrdered By: Kem Hammond on 10-19-2023 ALT [Catalytic activity/Vol] 24 U/L Normal 7-52 [facility] Comment on above: Performed By: #### C BC, CK, HS TROP, PT, PTT #### [facility] [address] [place] [address] [place] Albumin [Mass/volume] in Ser um or Plasma by Bromocresol green (BCG) dye binding methoOrdered By: Kem Hammond on 10-19-2023 Albumin BCG dye [Mass/Vol] 4.6 g/dL 3.5-5.7 [facility] Alkaline phosphatase [Enzyma tic activity/volume] in Serum or PlasmaOrdered By: Kem Hammond on 10-19-2023 ALP [Catalytic activity/Vol] 52 U/L Normal 34-104 [facility] Comment on above: Performed By: #### C BC, CK, HS TROP, PT, PTT #### [facility] [address] [place] [id number] [place] Aspartate aminotransferase [ Enzymatic activity/volume] in Serum or PlasmaOrdered By: Kem Hammond on 10-19-2023 AST [Catalytic activity/Vol] 20 U/L Normal 13-39 [facility] Comment on above: Performed By: #### C BC, CK, HS TROP, PT, PTT #### [address] Automated basophil %Ordered By: Kem Hammond on 10-19-2023 Basophils/100 WBC (Bld) 1.2 % Normal . [facility] Comment on above: Performed By: #### C BC, CK, HS TROP, PT, PTT #### [address] Automated basophil countOrde red By: Kem Hammond on 10-19-2023 Basophils (Bld) [#/Vol] 0.1 10*3/uL Normal 0.0-0.2 [facility] Comment on above: Result Comment: PERF ORMED BY: [place] [address] PATHOLOGIST CANDY DEPOSITING MACHINE OPERATOR BELLE BONDS M.D. Performed By: #### C BC, CK, HS TROP, PT, PTT #### [address] Automated blood monocyte cou ntOrdered By: Kem Hammond on 10-19-2023 Monocytes (Bld) [#/Vol] 0.5 10*3/uL Normal 0.0-0.8 [facility] Comment on above: Performed By: #### C BC, CK, HS TROP, PT, PTT #### [address] Automated eosinophil %Ordere d By: Kem Hammond on 10-19-2023 Eosinophils/100 WBC (Bld) 1.5 % Normal . [facility] Comment on above: Performed By: #### C BC, CK, HS TROP, PT, PTT #### [address] Automated eosinophil countOr dered By: Kem Hammond on 10-19-2023 Eosinophils (Bld) [#/Vol] 0.1 10*3/uL Normal 0.0-0.45 [facility] Comment on above: Performed By: #### C BC, CK, HS TROP, PT, PTT #### [facility] [address] [place] [address] Automated erythrocytes count in urine sediment (number/area)Ordered By: Kem Hammond on 10-19-2023 RBC Auto (Urine sed) [#/Area] 0-1 [HPF] 0-4 [facility] Automated leukocytes count i n urine sediment (number/area)Ordered By: Kem Hammond on 10-19-2023 WBC Auto (Urine sed) [#/Area] 5-9 [HPF] 0-4 [facility] Automated monocyte %Ordered By: Kem Hammond on 10-19-2023 Monocytes/100 WBC (Bld) 9.4 % Normal . [facility] Comment on above: Performed By: #### C BC, CK, HS TROP, PT, PTT #### [address] Automated neutrophil %Ordere d By: Kem Hammond on 10-19-2023 Neutrophils/100 WBC (Bld) 62.7 % Normal . [facility] Comment on above: Performed By: #### C BC, CK, HS TROP, PT, PTT #### [address] Automated urine color determ inationOrdered By: Kem Hammond on 10-19-2023 Color (U) Yellow Normal Yellow [facility] Comment on above: Order Comment: Name Collection Type:: Clean-Voided Midstream Performed By: #### C MP #### [address] BNP ser/plasOrdered By: Tunde Hammond on 10-19-2023 Natriuretic peptide B (Bld) [Mass/Vol] 97.0 pg/mL Normal 5-100 [facility] Comment on above: Result Comment: PERF ORMED BY: [place] [address] PATHOLOGIST CANDY DEPOSITING MACHINE OPERATOR BELLE BONDS M.D. Performed By: #### C BC, CK, HS TROP, PT, PTT #### [facility] [address] Basic Metabolic Panelon 12-2 Anion gap [Moles/Vol] Not performed Normal 6.0-15.0 [facility] Comment on above: Performed By: #### C BC, CK, HS TROP, PT, PTT #### [facility] [address] Creatinine Clr Calc Pharmacy 51.60 Normal [facility] Comment on above: Result Comment: PERF ORMED BY: [place] [address] PATHOLOGIST CANDY DEPOSITING MACHINE OPERATOR BELLE OBNDS M.D. Performed By: #### C BC, CK, HS TROP, PT, PTT #### [address] GFR/1.73 sq M.predicted MDRD (S/P/Bld) [Vol rate/Area] mL/min/{1.73_m2} Normal [facility] Comment on above: Performed By: #### C BC, CK, HS TROP, PT, PTT #### [facility] [address] Potassium Normal 3.5-5.1 [facility] Comment on above: Result Comment: Spec imen hemolyzed, redraw requested Performed By: #### C BC, CK, HS TROP, PT, PTT #### [address] Bilirubin Test strip Ql (U)O rdered By: Kem Hammond on 10-19-2023 Bilirubin Ql (U) Negative Negative [facility] Bilirubin.direct [Mass/volum e] in Serum or PlasmaOrdered By: Kem Hammond on 10-19-2023 Bilirubin.direct [Mass/Vol] 0.10 mg/dL 0.03-0.18 [facility] Bilirubin.total [Mass/volume ] in Serum or PlasmaOrdered By: Kem Hammond on 10-19-2023 Bilirubin [Mass/Vol] 0.4 mg/dL Normal 0.3-1.0 [facility] Comment on above: Performed By: #### C BC, CK, HS TROP, PT, PTT #### [facility] [id number] [facility] CT angio neckon 10-19-2023 CT angio neck [facility] Main [place] [address] [place] [address] CT Scan Report Signed Patient: Yani Gerard MR#: [id number] : 1940 Acct:[id number] Age/Sex: 83 / F ADM Date: 10/19/23 Loc: ER Room: Type: PRE ER Attending Dr: Copies to: Kem Hammond DO Ordering Provider: Kem Hammond DO Date of Service: 10/19/23 CT/CT angio head: slurred speech ([id number]) CT/CT angio neck: slurred speech CTA Head and Neck TECHNIQUE: Axial imaging of the head and neck with 2-D and 3-D reconstruction. 90cc of Isovue-370. The CT exam was performed using one or more the following dose reduction techniques: Automated exposure control, adjustment of the MA and/or Kv according to patient size, or use of the iterative reconstruction technique. Stenoses were measured using the NASCET criteria. COMPARISON: None HISTORY: Slurred speech. Recent TIA. Weakness. Unsteady gait. The visualized aortic arch and great vessels are unremarkable. Subclavian arteries are patent No carotid dissection, critical stenosis or occlusion identified. Calcified plaquing of the carotid bifurcations with 50% stenosis of the origin of the right internal carotid artery and less than 50% stenosis of the left internal carotid artery. Tortuosity of the internal carotid arteries. No vertebral dissection, occlusion or abrupt cut off identified. The carotid siphons and vertebral basilar systems are patent. Atherosclerosis of carotid siphons. No intracranial aneurysm, dissection, abrupt cut off or critical stenosis identified.. Persistent bilateral posterior cerebral artery circulation.. CT/CT angio head IMPRESSION: No occlusion, critical stenosis or dissection of the extracranial or intracranial circulation. Calcified plaquing of carotid bifurcations with 50% stenosis of the origin of the left internal carotid artery and less than 50% stenosis of the right internal carotid artery. Atherosclerosis of carotid siphons. Impression dictated by: Richard Haji M.D.10/19/2023 11:35 AM Dictation Location: RADIO-PC-12 Transcribed By: DANIELE 10/19/23 1135 Dictated By: Richard Haji DO 10/19/23 1127 Signed By: 10/19/23 1135 Normal [facility] CT head stroke alert wo charlyo n 10-19-2023 CT head stroke alert wo con [facility] Main [place] [address] [place] [address] CT Scan Report Signed Patient: Yani Gerard MR#: [id number] : 1940 Acct:[id number] Age/Sex: 83 / F ADM Date: 10/19/23 Loc: ER Room: Type: PRE ER Attending Dr: Copies to: Kem Hammond DO Ordering Provider: Kem Hammond DO Date of Service: 10/19/23 CT/CT head stroke alert wo con: slurred speech Unenhanced head CT TECHNIQUE: Contiguous axial imaging of the head. The CT exam was performed using one or more the following dose reduction techniques: Automated exposure control, adjustment of the MA and/or Kv according to patient size, or use of the iterative reconstruction technique. COMPARISON: None HISTORY: Slurred speech. Recent TIA VENTRICLES: Within normal limits ATROPHY: Mild atrophy BRAIN PARENCHYMA: Decreased density of the white matter is most consistent with chronic small vessel disease. HEMORRHAGE: None HERNIATION: No mass effect or herniation INFARCTION: No recent vascular distribution infarction is seen. EXTRA-AXIAL FLUID COLLECTIONS None MIDBRAIN: Unremarkable MILAN: Unremarkable MEDULLA: Unremarkable SINUSES: Unremarkable ORBITS: Grossly unremarkable MASTOIDS: Unremarkable BONY STRUCTURES Intact ADDITIONAL FINDINGS: Atherosclerosis of carotid siphons. CT/CT head stroke alert wo con IMPRESSION: No acute findings. Preliminary 11:15 AM 10/19/2023 Impression dictated by: Richard Haji M.D.10/19/2023 11:35 AM Dictation Location: RADIO-PC-12 Transcribed By: DANIELE 10/19/23 1135 Dictated By: Richard Haji DO 10/19/23 1118 Signed By: 10/19/23 1135 Normal [facility] Calcium [Mass/volume] in Ser um or PlasmaOrdered By: Kem Hammond on 10-19-2023 Calcium [Mass/Vol] 9.3 mg/dL Normal 8.6-10.3 [facility] Comment on above: Performed By: #### C BC, CK, HS TROP, PT, PTT #### [facility] [address] Capillary blood glucose octavia urement by glucometer (mass/volume)Ordered By: Kem Hammond on 10-19-2023 Glucose [Mass/Vol] 103 mg/dL Normal [facility] Comment on above: Random Glucose Refer ence Range is dependent on time and content of last meal. Glucose of more than 200 mg/dL in a nonstressed, ambulatory subject supports the diagnosis of Diabetes Mellitus. Result Comment: [place] om Glucose Reference Range is dependent on time and content of last meal. Glucose of more than 200 mg/dL in a nonstressed, ambulatory subject supports the diagnosis of Diabetes Mellitus. PERFORMED BY: [place] [address] PATHOLOGIST [employer]ANDY DEPOSITING MACHINE OPERATOR BELLE BONDS M.D. Performed By: #### C BC, CK, HS TROP, PT, PTT #### [address] Carbon dioxide, total [Moles /volume] in Serum or PlasmaOrdered By: Kem Hammond on 10-19-2023 CO2 [Moles/Vol] 27.5 mmol/L Normal 21.0-31.0 [facility] Comment on above: Performed By: #### C BC, CK, HS TROP, PT, PTT #### [place] [address] [place] Chloride [Moles/volume] in S joanne or PlasmaOrdered By: Kem Hammond on 10-19-2023 Chloride [Moles/Vol] 101 mmol/L Normal 98-107 [facility] Comment on above: Performed By: #### C BC, CK, HS TROP, PT, PTT #### [address] Complete Blood Count Auto Di ffon 10-19-2023 Mean Corpuscular HGB Conc 34.1 g/dL Normal 32.0-35.0 [facility] Comment on above: Performed By: #### C BC, CK, HS TROP, PT, PTT #### [place] [address] [place] Monocytes/100 WBC (Bld) 18.50 % Normal 0.00-20.00 [facility] Comment on above: Performed By: #### C BC, CK, HS TROP, PT, PTT #### [address] NRBC% 0.1 /100{WBC} Normal 0-0.5 [facility] Comment on above: Performed By: #### C BC, CK, HS TROP, PT, PTT #### [address] Creatine kinase [Enzymatic a ctivity/volume] in Serum or PlasmaOrdered By: Kem Hammond on 10-19-2023 CK [Catalytic activity/Vol] 71 U/L Normal 30-223 [facility] Comment on above: Performed By: #### C BC, CK, HS TROP, PT, PTT #### [address] Creatinine [Mass/volume] in Serum or PlasmaOrdered By: Kem Hammond on 10-19-2023 Creatinine [Mass/Vol] 0.65 mg/dL Normal 0.60-1.20 [facility] Comment on above: Performed By: #### C BC, CK, HS TROP, PT, PTT #### [place] [address] [place] Dipstick and Microscopicon 1 12-20-2022 Appearance (U) Clear Normal Clear [facility] Comment on above: Order Comment: Name Collection Type:: Clean-Voided Midstream Performed By: #### C MP #### [address] Bacteria,Urine None Seen Normal None Seen [facility] Comment on above: Order Comment: Name Collection Type:: Clean-Voided Midstream Performed By: #### C MP #### [address] Bilirubin,Urine Negative Normal Negative [facility] Comment on above: Order Comment: Name Collection Type:: Clean-Voided Midstream Performed By: #### C MP #### [place] [id number] [facility] Glucose Ql (U) Normal Normal Normal [facility] Comment on above: Order Comment: Name Collection Type:: Clean-Voided Midstream Performed By: #### C MP #### [address] Hyaline Casts,Urine None Seen Normal 0-8 [facility] Comment on above: Order Comment: Name Collection Type:: Clean-Voided Midstream Result Comment: PERF ORMED BY: [place] [address] PATHOLOGIST CANDY DEPOSITING MACHINE OPERATOR BELLE BONDS M.D. Performed By: #### C MP #### [address] Ketones Ql (U) Negative Normal Negative [facility] Comment on above: Order Comment: Name Collection Type:: Clean-Voided Midstream Performed By: #### C MP #### [address] Leukocyte esterase Test strip Ql (U) 2+ High Negative [facility] Comment on above: Order Comment: Name Collection Type:: Clean-Voided Midstream Performed By: #### C MP #### [place] [address] [place] Nitrite,Urine Negative Normal Negative [facility] Comment on above: Order Comment: Name Collection Type:: Clean-Voided Midstream Performed By: #### C MP #### [place] [address] [place] Occult Blood,Urine Negative Normal Negative [facility] Comment on above: Order Comment: Name Collection Type:: Clean-Voided Midstream Result Comment: PERF ORMED BY: [place] [address] PATHOLOGIST CANDY DEPOSITING MACHINE OPERATOR BELLE BONDS M.D. Performed By: #### C MP #### [place] [address] [place] Protein,Urine Negative Normal Negative [facility] Comment on above: Order Comment: Name Collection Type:: Clean-Voided Midstream Performed By: #### C MP #### [place] [address] [place] RBC LM.HPF (Urine sed) [#/Area] 0 /[HPF] Normal 0-4 [facility] Comment on above: Order Comment: Name Collection Type:: Clean-Voided Midstream Performed By: #### C MP #### [place] [address] [place] Specificy [place],Urine 1.045 High 1.001-1.030 [facility] Comment on above: Order Comment: Name Collection Type:: Clean-Voided Midstream Performed By: #### C MP #### [address] Squamous Epithelial Cell,Urine None Seen Normal 0-2 [facility] Comment on above: Order Comment: Name Collection Type:: Clean-Voided Midstream Performed By: #### C MP #### [address] Urobilinogen,Urine Normal Normal Normal [facility] Comment on above: Order Comment: Name Collection Type:: Clean-Voided Midstream Performed By: #### C MP #### [place] [address] [place] WBC,Urine 5-9 High 0-4 [facility] Comment on above: Order Comment: Name Collection Type:: Clean-Voided Midstream Performed By: #### C MP #### [address] ECG 12 lead ECGon 10-19-2023 ECG 12 lead ECG [facility] Main [place] [address] [place] [address] Electrocardiograph Report Signed Patient: Yani Gerard MR#: [id number] : 1940 Acct:[id number] Age/Sex: 83 / F ADM Date: 10/19/23 Loc: Room: [address] [place] [address] Type: ADM IN Attending Dr: Yuni Lundberg MD Ordering Provider: Kem Hammond DO Date of Service: 10/19/23 ECG/ECG 12 lead ECG: CHEST PAIN Copies to: Test Reason : Blood Pressure : 138/063 mmHG Vent. Rate : 063 BPM Atrial Rate : 063 BPM P-R Int : 176 ms QRS Dur : 094 ms QT Int : 452 ms P-R-T Axes : 078 050 053 degrees QTc Int : 462 ms Normal sinus rhythm Normal ECG When compared with ECG of 19-MAR-2022 20:34, Nonspecific T wave abnormality, improved in Lateral leads Confirmed by Kem Hammond DO ([id number]) on 10/19/2023 7:27:06 PM Referred By: Electronically Signed By:Kem Hammond DO Transcribed By: MUS Signed By Kem Hammond DO 1926 Normal [facility] Erythrocyte distribution wid th [Ratio] by Automated countOrdered By: Kem Hammond on 10-19-2023 Erythrocyte distribution width (RBC) [Ratio] 13.6 % Normal 11.9-15.3 [facility] Comment on above: Performed By: #### C BC, CK, HS TROP, PT, PTT #### [facility] [address] [place] [address] [place] Erythrocytes [#/volume] in B lood by Automated countOrdered By: Kem Hammond on 10-19-2023 RBC (Bld) [#/Vol] 4.10 10*6/uL Normal 3.60-5.00 [facility] Comment on above: Performed By: #### C BC, CK, HS TROP, PT, PTT #### [facility] [address] [place] [address] [place] Glucose [Mass/volume] in Ser um or PlasmaOrdered By: Kem Hammond on 10-19-2023 Glucose [Mass/Vol] 111 mg/dL High 70-100 [facility] Comment on above: ADA recommended refe rence rangeRandom Glucose Reference Range is dependent on time and content of last meal. Glucose of more than 200 mg/dL in a nonstressed, ambulatory subject supports the diagnosis of Diabetes Mellitus. Result Comment: [place] om Glucose Reference Range is dependent on time and content of last meal. Glucose of more than 200 mg/dL in a nonstressed, ambulatory subject supports the diagnosis of Diabetes Mellitus. ADA recommended reference range Performed By: #### C BC, CK, HS TROP, PT, PTT #### [address] Hematocrit [Volume Fraction] of Blood by Automated countOrdered By: Kem Hammond on 10-19-2023 Hematocrit (Bld) [Volume fraction] 40.8 % Normal 34.0-46.4 [facility] Comment on above: Performed By: #### C BC, CK, HS TROP, PT, PTT #### [address] Hemoglobin [Mass/volume] in BloodOrdered By: Kem Hammond on 10-19-2023 Hemoglobin (Bld) [Mass/Vol] 13.9 g/dL Normal 11.8-15.4 [facility] Comment on above: Performed By: #### C BC, CK, HS TROP, PT, PTT #### [address] Hepatic Panelon 10-19-2023 Albumin [Mass/Vol] 4.6 g/dL Normal 3.5-5.7 [facility] Comment on above: Performed By: #### C BC, CK, HS TROP, PT, PTT #### [address] Bilirubin,Indirect 0.3 mg/dL Normal [facility] Comment on above: Performed By: #### C BC, CK, HS TROP, PT, PTT #### [address] Bilirubin.indirect [Mass/Vol] 0.10 mg/dL Normal 0.03-0.18 [facility] Comment on above: Performed By: #### C BC, CK, HS TROP, PT, PTT #### [place] [address] [place] [address] [id number] [facility] INR in Platelet poor plasma by Coagulation assayOrdered By: Kem Hammond on 10-19-2023 INR Coag (PPP) [Relative time] 0.9 {INR} Normal [facility] Comment on above: INR Therapeutic Rang e A) Pre- and Peroperative OAT started two weeks before surgery. NOT HIP SURGERY: 1.5 - 2.5 HIP SURGERY: 2 - 3B) Primary and secondary prevention of venous THROMBOSIS: 2 - 3C) Active venous thrombosis, pulmonary embolismand prevention of recurrent venous thrombosis: 2 - 3D) Prevention of arterial thromboembolismincluding patients with mechanical heart valves: 3 - 4.5 Result Comment: INR Therapeutic Range A) Pre- and Peroperative OAT started two weeks before surgery. NOT HIP SURGERY: 1.5 - 2.5 HIP SURGERY: 2 - 3 B) Primary and secondary prevention of venous THROMBOSIS: 2 - 3 C) Active venous thrombosis, pulmonary embolism and prevention of recurrent venous thrombosis: 2 - 3 D) Prevention of arterial thromboembolism including patients with mechanical heart valves: 3 - 4.5 Performed By: #### C BC, CK, HS TROP, PT, PTT #### [facility] [address] [id number] [facility] Ketones Auto test strip (U) [Mass/Vol]Ordered By: Kem Hammond on 10-19-2023 Ketones (U) [Mass/Vol] Negative Negative [facility] - UrinalysisOrder ed By: Kem Hammond on 10-19-2023 Hyaline casts LM Ql (Urine sed) None seen [LPF] 0-8 [facility] Leukocytes [#/volume] correc dorian for nucleated erythrocytes in Blood by Automated counOrdered By: Kem Hammond on 10-19-2023 WBC corrected for nucl RBC Auto (Bld) [#/Vol] 5.2 10*3/uL 3.8-11.6 [facility] Leukocytes [#/volume] in Blo od by Automated countOrdered By: Kem Hammond on 10-19-2023 WBC (Bld) [#/Vol] 5.2 10*3/uL Normal 3.8-11.6 [facility] Comment on above: Performed By: #### C BC, CK, HS TROP, PT, PTT #### [address] Lymphocytes [#/volume] in Bl ood by Automated countOrdered By: Kem Hammond on 10-19-2023 Lymphocytes (Bld) [#/Vol] 1.3 10*3/uL Normal 1.00-4.8 [facility] Comment on above: Performed By: #### C BC, CK, HS TROP, PT, PTT #### [address] Lymphocytes/100 leukocytes i n Blood by Automated countOrdered By: Kem Hammond on 10-19-2023 Lymphocytes/100 WBC (Bld) 25.2 % Normal . [facility] Comment on above: Performed By: #### C BC, CK, HS TROP, PT, PTT #### [address] MCH [Entitic mass] by Automa dorian countOrdered By: Kem Hammond on 10-19-2023 MCH (RBC) [Entitic mass] 33.9 pg Normal 24.7-34.3 [facility] Comment on above: Performed By: #### C BC, CK, HS TROP, PT, PTT #### [address] MCHC Auto (RBC) [Mass/Vol]Or dered By: Kem Hammond on 10-19-2023 MCHC (RBC) [Mass/Vol] 34.1 g/dL 32.0-35.0 [facility] MCV [Entitic volume] by Auto mated countOrdered By: Kem Hammond on 10-19-2023 MCV (RBC) [Entitic vol] 99.5 fL Normal 80-100 [facility] Comment on above: Performed By: #### C BC, CK, HS TROP, PT, PTT #### [place] [address] [place] Monocyte distribution width [Entitic volume] in Blood by AutomatedOrdered By: Kem Hammond on 10-19-2023 Monocyte distribution width Auto (Bld) [Entitic vol] 18.50 % 0.00-20.00 [facility] Neutrophils [#/volume] in Bl ood by Automated countOrdered By: Kem Hammond on 10-19-2023 Neutrophils (Bld) [#/Vol] 3.3 10*3/uL Normal 1.8-7.7 [facility] Comment on above: Performed By: #### C BC, CK, HS TROP, PT, PTT #### [facility] [address] Nitrite Test strip Ql (U)Ord ered By: Kem Hammond on 10-19-2023 Nitrite Ql (U) Negative Negative [facility] No Panel InformationOrdered By: Kem Hammond on 10-19-2023 Estimated GFR (CKD-EPI) > 60.0 mL/Min [facility] Creatinine Clearance (Chem 51.60 [facility] Nucleated erythrocytes [Pres ence] in Blood by Automated countOrdered By: Kem Hammond on 10-19-2023 Nucleated RBC Auto Ql (Bld) 0.1 /100{WBC} 0-0.5 [facility] Partial Thromboplastin Timeo n 10-19-2023 aPTT Coag (Bld) [Time] 33.1 s Normal 25.1-36.5 [facility] Comment on above: Result Comment: A he matocrit value greater than 55% may lead to inaccurate results in coagulation testing. Patients having hematocrit values >55% require a special collection tube for coagulation studies. Please contact the laboratory at [phone] for redraw instructions. PERFORMED BY: [address] [place] [address] PATHOLOGIST CANDY DEPOSITING MACHINE OPERATOR BELLE BONDS M.D. Performed By: #### C BC, CK, HS TROP, PT, PTT #### [facility] [address] [id number] [facility] Platelet mean volume [Entiti c volume] in Blood by Automated countOrdered By: Kem Hammond on 10-19-2023 Platelet mean volume (Bld) [Entitic vol] 8.9 fL Normal 6.3-10.7 [facility] Comment on above: Performed By: #### C BC, CK, HS TROP, PT, PTT #### [facility] [address] Platelets [#/volume] in Bloo d by Automated countOrdered By: Kem Hammond on 10-19-2023 Platelets (Bld) [#/Vol] 258 10*3/uL Normal 150-450 [facility] Comment on above: Performed By: #### C BC, CK, HS TROP, PT, PTT #### [facility] [address] Potassium [Moles/volume] in Serum or PlasmaOrdered By: Kem Hammond on 10-19-2023 Potassium [Moles/Vol] 4.5 mmol/L Normal 3.5-5.1 [facility] Comment on above: Result Comment: PERF ORMED BY: [place] [address] PATHOLOGIST CANDY DEPOSITING MACHINE OPERATOR BELLE BONDS M.D. Performed By: #### C BC, CK, HS TROP, PT, PTT #### [address] Protein Auto test strip (U) [Mass/Vol]Ordered By: Kem Hammond on 10-19-2023 Protein (U) [Mass/Vol] Negative Negative [facility] Protein [Mass/volume] in Ser um or PlasmaOrdered By: Kem Hammond on 10-19-2023 Protein [Mass/Vol] 7.2 g/dL Normal 6.4-8.9 [facility] Comment on above: Performed By: #### C BC, CK, HS TROP, PT, PTT #### [address] Prothrombin time (PT)Ordered By: Kem Hammond on 10-19-2023 PT Coag (PPP) [Time] 10.7 s Normal 9.0-12.9 [facility] Comment on above: A hematocrit value g reater than 55% may lead to inaccurate results in coagulation testing. Patients having hematocrit values >55% require a special collection tube for coagulation studies. Please contact the laboratory at [phone] for redraw instructions. Result Comment: A he matocrit value greater than 55% may lead to inaccurate results in coagulation testing. Patients having hematocrit values >55% require a special collection tube for coagulation studies. Please contact the laboratory at [phone] for redraw instructions. Performed By: #### C BC, CK, HS TROP, PT, PTT #### [address] Serum globulin measurement b y calculation (mass/volume)Ordered By: Kem Hammond on 10-19-2023 Globulin (S) [Mass/Vol] 2.6 g/dL [facility] Comment on above: Performed By: #### C BC, CK, HS TROP, PT, PTT #### [address] Serum or plasma albumin/glob ulin mass ratioOrdered By: Kem Hammond on 10-19-2023 Albumin/Globulin [Mass ratio] 1.8 {ratio} [facility] Comment on above: Performed By: #### C BC, CK, HS TROP, PT, PTT #### [address] Serum or plasma anion gap de terminationOrdered By: Kem Hammond on 10-19-2023 Anion gap [Moles/Vol] TNP [facility] Comment on above: Test not performed Serum or plasma non-glucuron idated bilirubin measurement (mass/volume)Ordered By: Kem Hammond on 10-19-2023 Bilirubin.indirect [Mass/Vol] 0.3 mg/dL [facility] Sodium [Moles/volume] in Ser um or PlasmaOrdered By: Kem Hammond on 10-19-2023 Sodium [Moles/Vol] 136 mmol/L Normal 136-145 [facility] Comment on above: Performed By: #### C BC, CK, HS TROP, PT, PTT #### [address] Specific gravity Auto test s trip (U) [Rel density]Ordered By: Kem Hammond on 10-19-2023 Specific gravity (U) [Rel density] 1.045 1.001-1.030 [facility] Squamous epithelial cells de tection in urine sediment by light microscopyOrdered By: Kem Hammond on 10-19-2023 Epithelial cells.squamous LM Ql (Urine sed) None seen [HPF] 0-2 [facility] Troponin I High Sensitivityo n 10-19-2023 Troponin I High Sensitivity 6.3 pg/mL Normal 0.0-15.0 [facility] Comment on above: Result Comment: PERF ORMED BY: [place] [address] PATHOLOGIST CANDY DEPOSITING MACHINE OPERATOR BELLE BONDS M.D. Performed By: #### C BC, CK, HS TROP, PT, PTT #### [address] Troponin I.cardiac [Mass/vol ume] in Serum or Plasma by Detection limit <= 0.01 ng/Ordered By: Kem Hammond on 10-19-2023 Troponin I.cardiac DL <= 0.01 ng/mL [Mass/Vol] 6.3 pg/mL 0.0-15.0 [facility] Urea nitrogen [Mass/volume] in Serum or PlasmaOrdered By: Kem Hammond on 10-19-2023 Urea nitrogen [Mass/Vol] 20 mg/dL Normal 7-25 [facility] Comment on above: Performed By: #### C BC, CK, HS TROP, PT, PTT #### [facility] [address] [place] [address] Urine Cultureon 10-19-2023 Bacteria identified Cx Nom (U) 25,000 colonies/ml mixed bacterial skin contaminants including mixed gram negative bacilli - 2 Days PERFORMED BY: [place] [address] PATHOLOGIST CANDY DEPOSITING MACHINE OPERATOR BELLE BONDS M.D. Normal [facility] Comment on above: Performed By: #### C MP #### [address] Urine bacteria detection by automated methodOrdered By: Kem Hammond on 10-19-2023 Bacteria Auto Ql (U) None seen None Seen [facility] Urine clarity by refractomet ry automatedOrdered By: Kem Hammond on 10-19-2023 Clarity Refractometry automated (U) Clear Clear [facility] Urine culture routineOrdered By: Kem Hammond on 10-19-2023 Bacteria identified Cx Nom (U) bacilli - 2 Days [facility] Urine glucose measurement by automated test strip (mass/volume)Ordered By: Kem Hammond on 10-19-2023 Glucose Auto test strip (U) [Mass/Vol] Normal mg/dL Normal [facility] Urine hemoglobin detection b y automated test stripOrdered By: Kem Hammond on 10-19-2023 Hemoglobin Auto test strip Ql (U) Negative Negative [facility] Urine leukocyte esterase det ection by automated test stripOrdered By: Kem Hammond on 10-19-2023 Leukocyte esterase Auto test strip Ql (U) 2+ Negative [facility] Urine pH measurement by auto mated test stripOrdered By: Kem Hammond on 10-19-2023 pH (U) 8.0 [pH] Normal 5.0-9.0 [facility] Comment on above: Order Comment: Name Collection Type:: Clean-Voided Midstream Performed By: #### C MP #### [address] Urobilinogen Auto test strip (U) [Mass/Vol]Ordered By: Kem Hammond on 10-19-2023 Urobilinogen (U) [Mass/Vol] Normal mg/dL Normal [facility] XR chest 1V portableon 10-19 XR chest 1V portable [facility] [place] [address] XRay Report Signed Patient: Yani Gerard MR#: [id number] : 1940 Acct:[id number] Age/Sex: 83 / F ADM Date: 10/19/23 Loc: ER Room: Type: PRE ER Attending Dr: Copies to: Kem Hammond DO Ordering Provider: Kem Hammond DO Date of Service: 10/19/23 XR/XR chest 1V portable: CHEST PAIN Plain film chest Single view HISTORY: Slurred speech. COMPARISON: 03/19/2022 FINDINGS: SUPPORT DEVICES: None POSTSURGICAL CHANGES: None HEART: Similar cardiomegaly. PULMONARY FLAVIA: Within normal limits MEDIASTINUM: Unremarkable LUNGS AND PLEURA: No acute lung process, pleural effusion or pneumothorax identified. Similar interstitial prominence. BONY STRUCTURES: Intact ADDITIONAL FINDINGS None XR/XR chest 1V portable IMPRESSION: Similar cardiomegaly and interstitial prominence. No new findings. Impression dictated by: Richard Haji M.D.10/19/2023 11:37 AM Dictation Location: [facility]--12 Transcribed By: [facility] 10/19/23 1137 Dictated By: Richard Haji DO 10/19/23 1136 Signed By: 10/19/23 113 Normal [facility] CT Abdomen/Pelvis w/ Contras ton 09-21-2022 CT Abdomen/Pelvis w/ Contrast CLINICAL HISTORY: Left upper quadrant pain for 3 weeks. History of diverticulitis, GERD. Surgical history of right hip arthroplasty, back surgery, hysterectomy. COMPARISON: CT 12/30/2020. TECHNIQUE: CT of the abdomen and pelvis was performed using standard technique, scanning from just above the dome of the diaphragm to the symphysis pubis. Including delayed images through the kidneys. CONTRAST: 100 mL of Isovue-300. Oral contrast also given. All CT scans at this facility use dose modulation, iterative reconstruction, and/or weight based dosing when appropriate to reduce radiation dose to as low as reasonably achievable. RESULT: Liver: No mass or lesion. Biliary: No bile duct dilation. Gallbladder is unremarkable. Pancreas: No mass or duct dilation. Spleen: No mass. No splenomegaly. Adrenals: No mass. Kidneys: No mass, calculus, or hydronephrosis. Delayed phase imaging with normal excreted contrast in the collecting systems. GI tract: Small hiatal hernia. Diverticulosis especially of the sigmoid colon, without evidence for acute diverticulitis. Feces throughout the colon. No bowel dilation. Lymph nodes: No abdominal or pelvic lymphadenopathy. Mesentery/peritoneum: No ascites or mass. Retroperitoneum: No mass. Vasculature: Celiac axis and SMA are patent. The portal vein and branches, splenic vein, SMV, and hepatic veins are patent. Moderate abstract disease of the aorta and branch vessels, without aneurysm. Pelvis: No significant free fluid. Hysterectomy. Bladder partially decompressed. Artifact from right hip arthroplasty. Bones/soft tissue: No acute osseous findings. Postsurgical changes from left-sided laminectomies in the lower lumbar spine. Degenerative changes with severe disc height loss at L4-L5 and L5-S1. Rotary levoscoliosis. Right hip arthroplasty. Degenerative changes left hip. Lower thorax: Unremarkable. IMPRESSION: No acute process in the abdomen/pelvis. Other findings as discussed. Report reported and signed by Guero Elias on 09/21/2022 1332 Normal [facility] Thermodynamics Professor Follow-Upon 08-08-2022 Follow-Up [id number] Gala Gerard 1940 F Date Provider Department Center 08/08/2022 Danielle-HENRRY ELIZONDO MP [facility] Family History Family history unknown: Yes Level of Service:93430 DE OFFICE/OUTPATIENT ESTABLISHED LOW MDM 20-29 MIN Reason for Visit and Comments: Follow-up [964691] Normal [facility] PT - Assessmentson 2 PT - Assessments [id number]#1.00CD:1 27 Normal [facility] Coding Summary.on 06-30-2022 Coding Summary. CD:[id number] Gh0bW w+PGhlYWQ+NR4RTJBiK46unSN ylZ1KU7zULY6ACLVTMSODBY2H BV9jgEE5VIrbG8MashBm RtqrdHSnXS96OTb8TRP5wTxuV SiphC0taKQxV9d2DmTkYK80jD 87NSldZREiHzI6EoJmjkrhlNM y M5oaTtVjpSClQhb+PHRhYmxlI HdpZHRoPScxMDAlJyBzdHlsZT 4fIy2nGWPuWWWldVhnwSLmJnL j l4qxMZBcTWbvVN6djXviY9Egp SQ4WNNxl6e2Ve17yRC+PHRkIH O7jNwiHXgcb572CzYja4rlXWT 3 iTFnMMjrBWV5S47ah2C6NRHvJ FUxFBD4cRB1yI8tvCfzcsraI5 DfiRGsXpG7UQK1fGZsbM3raLc n cvnmaS1rVhj+S78ZQE7ZXSXPL L8HOsx6R6PmNsdmgNM+PC90YW IrPR21uPSsfMSin7huuKd5EsS w IDJiLDY6hWtiRRgmu8VdVEZnF 97nuJQat5K3TRDtmHrcfRJoOn KggJX5hS1bAWfqxwxlv7zqwnu n Jcztn1btif18iE32N02fAKxsV YTfTGX8CJEgOWOpqRlawz5khL 9wIi8+HFmza8pbn7mbgZl8FdJ w UOEufaRobYmeYZN1y9BiTh77S 0GmbYohh6DkMdt1gk23fBIwu4 P4pHD1UQtmLJBkoX7tBMftWdP 6 FRBtZtGbiN68kNKnVZzrFe9yz RgosFvqPD1aXWPyadrsXBZwfM 2hCJHobJBdqIlyLD8jBJFowja m g284FmHbRRQ9ACBmcRPjD7Yya W3cPyQwKKUpIRIzR5WcdGYzUZ ylO126FUmnQnI3QPVbymUoL9R s BYHqsGhiUgZ5g5P8As2Bz4Yfn kmoTYJ8VPvrQJG4GyVnDdCwXt S8B5QsGvy9VAJvkChiPB6gA9E h EZLceegpmlqbqVM6ZFBkFFLff B45lXNyRMxuZi8zk0J5w186TF QrQYVkbK87Qu8atMsdHMSchMH U dM4aqumqy7qonkfzDuRuYWGnX Tt4JZg1OHGvoLnvFqPwUBO0Tp T5CQT6tOWalT0zgLwoifwwoG8 w Oyc+H70ivZ6sKXC7XCO2zgdzW NAieiMrMJ74ZN78W5LmYhshyT FibGU+CPNvumUvpVwkTI3eYlF j p4git6SbXLmrZ3KbFZRlQWglX eq1YJSrHTE8mLO1pG9uOTOaXP sfm4L0cFV7W6NpefZiwe0gu0y s EEBbVLbxJ77pzUUjn0C7CGAvl GJ4BVIwyYojJiRajQ77Oqj+PG QyyLpiz4DlVdqim1pnu6nihAb 9 MwPyZFTbipCqfYkmVNJ8x3ArW u08O76bVYusERSnGQSvXJJpIS HlqWcntk7utE4hYm5+PGNvbCB 3 hIO7bO2sCXErWpS2SRunL027L mKwdNDhUcdjq9wkr2blbIv8Wg XtZYShfeHnmKadVLB9q8GrEt7 8 V01pTBpnEUJjDCGpBUTcIPPpp Zegcp3axC1nKr7+ZK8zy3rraq 61yM30rUD+VQBqVRG7bUjvLCe w SUIkzN2rSUdrYiS4NCHoJlSme A38sGMmKPmyKa5baGqroIkbPX 9kYVSvqbkha480HrPxw8nzGUC w hSWtIMzjTON8V20gv3I3OPLqS IKjTAQ6nUQ7zR2xfXngiuclfV YoiOovfnYxvFbfRUjzVXfvA47 6 IHRvcDsnPlBhdGllbnQgTmFtZ Za8S3FwVmn5CHDwhIztMF4hxB JkJUjbGt9omNrjiLreMB5iBHX p pzbip630SrBwq7qpRROnlDWhZ WftERM2O81nw9W6YCUoSZGdZC N6vTF8vA7mcVxnhgoepDHlkQa g blTisPsjRVniPTajQ460MZKfp NvxZlEmsrWkNZYnkDN3UB14CE 29vOMbq6W8jMP8M8WiMSYxwim t yzgrjAU5NFXmATVmeD38Ph5xf LplPc6vXFIiWDA3JDEdnDTcN0 NyvP1tDqYpTUFxGUDcR6UiiYN t MPeuO242IAnxXiS7VOSciaVxS 1ToZEMtaTkjYyZ9r5V2Pe6CZ1 S7PY96JL85gKIaz8A0kSY5Z8X h FYEmehaqbtxpqUJ3IOVpJOOdw P10Po8tuShjPu1wZBEzXBN1FH YtqWYfN9TmtS1gKiBzCIUnUIG w J8KnlGQhEEoyI180IMhkOxW2R WNisxWsK6YmCRJlvEnpStE6z1 J4Bu4ZPMb0JG51CX55vJJcr2V 5 fTW3C6SyHYCfvlpfctaagQX8V FPzMQWecE49Bx9khSwiOl6mDT JzNHX7IZYarJJwY5DktK4dXlK j VLLpXGJrN6RcvPCiENtwO905X BfiSpB7OTSfcdTwL7IzIMWazT skTiN1f7J1Ln3WDJXnPW76VRR 5 iGD4QU87CW62Z3NlRobcbBXyp +PHRhYmxlIHdpZHRoPScxMD NxJbYscFqcBX7qHa2zFQFnCEE v cSnuaTUuFuJph4usJMHmKVhfB J9joIupP4PllYY5WDNnc6f5Kz 85M64pX2BlfOF+WWCdaGP0cGX 0 fQ4iJmDfIcU7YHnrE078CbMek AZyHogtq5opr2bsuTy2CbP3OZ QqvoEihZqaLQL3j2JvLq92T68 s IHdpZHRoPSIxNSUiIHZhbGlnb m3siZ5hHz4+ZQCleDX9pXG9mU 8cAuXlUyU8FTrvZ276UiBslOM v Eyoso9bxm6pgmSm0AbGlIQAfz iBnhPnsGTJ3q6IhFu77Q6CmaF fcz0DqQsq5io75uXUht4H2cSM 9 K3ZzGBTapbxjaUGeeAkfHW5dN PQhfladIVQenS5bWRYuR4b2Zd DnVyX2YFgaR5PumaX2QJBxlNK g OXvhBDD8X87dj7X3SWKgCGNvN HI5fKQ3bO8pxVcfwzddsVBnvZ kmacEwiFroRWmiKFpnR497HQE v aAzuEMSieU9lPVIqrKPdkXayK L1aEKEtxtczTsJXBHURDTubKM gLZIvRBFLDDD45SJ79pXQhy5S 5 bYO8C8GhYWNckmqllkiywZV5N AVlDPMxdL90tHGrPQfmEo5sx8 D7v567CXDyZIMcdU52Me9bcHd g DWXflLNJqE9mzeiis0xfgyolW iGdUMAeMVf9FZt9WXQxnGjoKi IzEQO8KgK7FEJ5oLCfyI6kvIh n egyzhX0xMub+JHciRpzbNDw5H DwvdGQ+DRTjFWF1xPkuYYycRW DnkF6aVSTyU3z1BlYwHwL0PKs u J6RxJSAxqvpaBu03gS2rCiQxQ xB9VErlT9PpzjO8MEZnuEUeMG taSAI2V91ku6J6MQKyNANxBZE 7 eXL6rY1rnEyqbebqlARdqOkby jFwnIoeRGpzDJmuS740YKNiiQ dpEvjkXHmbLTGlGH82WS21lHQ g b6E3vMG4K6DjHHLymbswusjni YK7BYTtVAMfuA83gDFcQCcnJu 3ng5G2i922OXOeRILklN90Jz6 u uSglVOEvgBAMjH2qyhsjj6koh abwGoAiGGGdOEn9TYo1LKSqlT wxClYhFYD2QvW5GSS5zYBrfF3 h yFvwqewtlZ1zEom+RmVtYWxlP X53UN22mQAgl6L5hYD0O4PfDB DhjwxbwgxfxTG2HOSwWMYdeU9 7 eQMdLMxsKi5kg3B8c293PCVaI XQerG33Rw8fuPnxMRAsrXRVxL 6tlndrd7qqnwvwMtPbTHEnMRv 0 HJi4UWScpZtgNoVzOTZ7FfS3J LA6lPRylK2euUzgrlauoL2kXx c+YqRngMJszQ2zUE91HN11H0S y PjwvdGFibGU+PHRhYmxlIHdpZ MUrWMwdEOMmGqNpuChqNW5yDe 7pHZTgJAZsyCresYHbFvExw7e s CTWnULgbYP6gyVkqG7WbbRT3O HZih6y2Th77U80nP9SpnCH+PG MlfVK7rYG3iW9aFmAxYwL7TSq p M687ErUcoMJeMjmfw5fri6tdh Fi5TiGnFDQfqfEpsGthPSG8e2 MhEp99O68nSEraXDIgSWVcVUE i WZKvjQuamd9wqC0fEi2+PGNvb CY0uOY0sA7yDbFfPfC1NJewY3 13EvAozXStFuscC80eP4ZbeVR + BDSoVqx0HIUbcPrtSZ9gnIXxU AngCr1dVPH8JoDaIyPtOPwvX3 BhEWEjlegmdbmcgQH9OPMvKEJ w vU62Pn4jnPdzEh2fXPYtTAZ4J NCpiZWdA1BnpO3vIcQnTAFpKA JpP8OsoGXnPVozX275VHwiOgL 7 OUUaldRxX7PdJKExjHbnBkL6j 8Q4St3ZoXtpsAVlYO3kBvSbFW n1V4VnIdh5SLTuhZdoNL5edVP k FKdkMq1tnEmhtKpjTI3ySXZjo bsan952ZrThk4eyLXMvlTTpNK hhSJH2T57gd4S5THCdVFLhCMT 7 aJC9uX8mcMeahphiyUMytRdgy lYriZvjNLvcUTuzZ143JFTyyU mpEcSQNhk5N7KxGnx3GVYbzNt s EW8kzPRcLPdaLf6zkBbewXsxK C1mZEAyvtvrl387TnFdb8fpZI UhnPPkAEqrKJB3S31uk3K0CQW w FFPyABF8pAF1cX7olXkezrjvr GVmdDsgdmVydGljYWwtYWxpZ2 74ZEPgnVbvSd9YXbr7Y1QqWuz 0 FAJvrLfeAM4diIBmRAzfYi1dn NqhtSneRD6iUORsjemom473Yz Wim0dwMBOkdDQzBOyaTYI8Q10 s y0E9DXMmTAFxBLB0vYL2fZ8ap GlnbjogbGVmdDsgdmVydGljYW afQIibJ817YNZkpHniUsDwpPC y OjwvdGQ+GJ26rr09O2IgNrlmN ge6CJJpYBE0gCF8xL5fSIGuAF pgx1P1hVW7E1BhqnKliw1xd8a s YXBz (more content not included)... [facility] PT - Assessmentson PT - Assessments [id number]#1.00CD:12 7 [facility] PT - Consentson 06-30-2022 PT - Consents [id number]#1.00CD:12 7 [facility] Consent for Treatmenton 06-01 Consent for Treatment [id number]#1.00CD:12 7 Normal [facility] PT - Orderson 06-29-2022 PT - Orders [id number]#1.00CD:12 7 Normal [facility] Nonvisit Note - PTon 022 Nonvisit Note - PT Chart reviewed with eval prepped for scheduled eval KK [facility] PT - Assessmentson 2 PT - Assessments [id number]#1.00CD:127 Normal [facility] CT Chest w/o Contraston 04-29 CT Chest w/o Contrast History: Lung nodu le. Technique: Multiple contiguous axial images were obtained of the thorax from the thoracic inlet through the upper abdomen without IV contrast. Multiplanar reformats were obtained. All CT scans at this facility use dose modulation, iterative reconstruction, and/or weight based dosing when appropriate to reduce radiation dose to as low as reasonably achievable. Comparison: CT chest 09/23/2020 Findings: No axillary, mediastinal, or hilar lymphadenopathy. No thoracic aortic aneurysm. Atherosclerotic ossification of the thoracic aorta. Evidence of coronary artery disease. Heart size is within normal limits. No significant pericardial effusion. Esophagus is within normal limits. Small hiatal hernia. No pulmonary nodule or mass. No consolidation, pleural effusion, or pneumothorax. Again identified are small areas of scattered peripheral lung scarring bilaterally. Visualized upper abdomen demonstrates no acute abnormality. No acute osseous abnormality. IMPRESSION: No acute intrathoracic process. Chronic findings as detailed. Report reported and signed by KYLE BURRELL on 05/24/2022 1009 Normal [facility] Thermodynamics Professor Nonvisit Note - PTon 022 Nonvisit Note - PT Pt cancelled due to being busy at her [employer] [facility] Coding Summary.on 03-25-2022 Coding Summary. CD:[id number] Gh0bW w+PGhlYWQ+DV6HEUIpF95dnRB czB8EN5mXRT3ZRSIPXXFRQT8Y KE9awRM2JFyfD2XrnpWq VrnwhLNmSC08NVr4KXG4pWyiL DdmxR9dnCVuL5h1DwBiQH55zH 04DFtbNPQhMlU7RsOqjsbauPU y G6nfLgImfRCsVsl+PHRhYmxlI HdpZHRoPScxMDAlJyBzdHlsZT 3yNc0kXUTqKFFlpKtokYKxXvM j p7ruKYDoRZdzIN8ojQibI3Ebs IW7HANxd4u6Fl44uFA+PHRkIH L8mGdnUAxct987VqLtb9dwDQL 3 pVGtHAfbURQ1B85at7Y4APTmH BVuPFB6nIR9aJ9qaVsajndmF4 FjnDBfSyL9GNM5rIMcyC3jkUd n haoebE1oIzc+W43CLQ4WSOIDX V4XReo2N7ZaUhcgkCX+PC90YW AsCJ54pPIafPXue9fkzAo6GoF w XCDpKUJ5fBqsSBguq1RlLAXzG 78ncQCcb6K7PGPwqGtuwTTxSt RabQJ7zX7hGIisgzogn6iqzug n Qfeoy7jbvq17aB81I02pODvmB FVnJBR3FMHsLXTdiMwfgd7oxI 9wIi8+AUeph3iti5amxBb0BiA w NSZwxuDodNreWUG6m1OoXv78P 2MeuNwss9RmEph0fq88cPZlq2 D6kDP1YCmgFVXnoO3rBUhbVtF 6 MRXgKdWgyW61jZQeFUycKf5go RsspTlxGE5eTKYopdncFIJyzJ 5gDBWrxXDqxJlrUU8tZZObyiz m r491JsRpMMZ7JKYkoZLkF0Wke C8bDsRoBPKwSVMoC8NsrOPcKS agB051IRraAcL1NOIlmxJpF6C s JCQkbCkiGbL1o8G4Il9Yy9Jrm wonLTP0ALxeENX7NsO7CtTiRq E5B7VmBqd9SJBmcQfwZG2fC1X h NSRnnntvwcjwxBF4RTBaTTQur K62hRHiEOrhOh4ey1I9o255ZT UlVXQrhB24Mz4jgPkkLTUfoAR U yD1fpigfs2gxzmlmJzYvSMTwX Zw6UXp0CPTizJdvZhGeONT1Mr Y4SEG9mAWkzQ1dzVllpclflW5 w Oyc+W30mjD5tTQN1BVL8eytkN UIhjdYfLH43NN32F4LvLakinT FibGU+OIGcrlYslUbsRZ3mZaZ j h7ibr3ErWPzxZ2DiKQPvSVbdQ hy7MWOlPDJ4tKH7hN4qAFFwTQ dva1D9oOM4U5SfrcTpqj9du3x s JLEySSvmR73wjZTih5E8AWNnx HH2DQSpaFvePcKswR43Ztd+PG ZhoWqfm7XbWvmlz5ctc0wrzZp 9 HiCcYQFlkwAffLxtDXO4e7EuH x69B39oSPreBACxHGCqQVSuMV JznUadce9jsO5wJb3+PGNvbCB 3 rGE7sG6qBMYvBeR3DPzsF566Q pKueYBvEyfxo6tuo2knwAh7Bw CiCFYoocYwhTjuLGM7o6DrWy6 8 Z59jSHyhDRTwFOYjMNCgJCXoi Zyrld3kwU4gKp0+PY5si9rarc 35uT63nDL+TJUaCLA2xHnvDJj w QVXcvF1xOWjhRuW7KOVuAiDtt W29gFZsYBogIg5gsCnuyNqtWZ 9mPOOjvwcqz269GpGuc8gqICO w zXIbQOxbTTW9U91mq2C1ASZbP YPiIRG8hDI4nN1lkMgmuuvneQ SzlBfjkkMkqUwlRDgpTAzeJ88 6 IHRvcDsnPlBhdGllbnQgTmFtZ Iy5E2QgNsy4NIHbiQzfGT4sqO FmMUqmEg4ayPwuxGupMX1xGKI p eiskz574RyAmh1ovGLSwyIFwG IbpMJG9R43cj2N8QOSdLOPdOC S5pOS2mA8ufSvizubujLFdyYg g abBtuOvyTScyMOkrU253MYUyj HnlUxSjfpVjSNRkrZJ7YH07KN 76nWIfk6S5sCZ2G8AkOPPuzhj t gtqjzZC3DMHqCNWdfF85Zq0ez CmkUu6qOXMgUEP6OVOzuOSvD1 EmeN6qUpJgWARaGSMiW5XcdRM t ARsvO871RSdbWoH8IARdmkTgV 2IgLMNaxXujGxX4z2Q9Sf2DB7 V0LX45DV43mYFxm9X9hUB3K7Z h IMAttivpcerbsGB9PJWvRDChk F06Sf2ygZazVv4wTVAnVEX5VE YbaRYyC4HaoN9sVbUkMAPmEJU w V0CqcLYmRYcpE737VFryTvZ2J HUmgnHnK4XfIWXssJagFkN9i3 N9Nb9RMNc3QM30DA97pESey6A 5 mHX4A9XeUTLitidbfkgqpUD5G JCmZHKiiL19Xz3ttQrkCq5bED UrGHS5TJArjODpJ4TczA9kOyZ j ZSNhBNRuS1WkyTYsZQusI436P OqwLvE5CSCvujCpC2ObYTLiiM cxTcU7r0I3Lc1OLCHnEI09LDE 5 sCC2EQ71AJ45O9KiXtsedWZjc +PHRhYmxlIHdpZHRoPScxMD YcPcBykMidXS2vTa4vBSNeUCL v fRszjKWjPhTfs0ppYKQjQWfyU S9cjQtlR6VwrZA3YESjt8t3Vw 27Y87bB6ZlqRZ+GUHuwYD5dLP 0 uZ0sHdOzGmP9TZuaI466RqUrm ZNkZdhko1oyq5eayPq7MvT6KP JantCdbCcjCBW1f1BiJf64Q00 s IHdpZHRoPSIxNSUiIHZhbGlnb x2rxR6tSn5+CODypFP2eDX7qR 9iDvQbKiG5BDybJ667EfStbHQ v Calwu1rjg1mtuUj3YmBlNUWmm eKhfDlqOKH5u8HuEz82J3YtuF ixm9CzQde4uc53gTRdf1F9qSK 9 A6BeLPJsjkqfvWBilTimDE0rJ UPlfqhtXSScoB4pIKZdB0t0Zv ZzSwT4BXphJ1GmayD1VNJocVB g QIpjKNN2W36uy6P5HNSzOLOkN WD6uMH0yQ1tyEnpymgfkGMouW eenqLziEmcMXaqJRswR376XIK v nZreBROvwF3zXGQofFYdbRloK C8jMKTvtgzdClOUPHYDKBmkWW qXIXsKUVNAPK10LL16tIHsg7I 5 oZR4B5OeLEKiwerbtlbhtEY5C DDzMPJosE66wJDfIArsIr8kp7 L8y606LQIwOVWuwG05Ln1upMq g EVDbkKWKjL0opfnro8oxzbkgK cBaIYJkIZo2QPw7OTFvuNphRt JjGHD7NyI0GSM9dLMwoO8dmXz n xwfjkQ0aQoy+UNhqXiciHZd9I DwvdGQ+JNZiJVB5nVfdIInuQO OnvX2rJKEnM6s4QsWaDjL7BSh u T4NvOEWmokguHv41pH1yEsQsG vL8QYgkJ0VlgjW8BEUzeJYjZE zqAEV3O78mf4X3XDWqGNPiKIY 7 wWI9dP7avKakuceerNRxcNniu kWahBmySYesUEcrL209SRKanM xgDmtoZQfuWQZmIY82RM90rCH g q6B8rEL6Q2SqPCAlswwyytdmf GL7VXJzMUZnqN73gKCnVDrjDm 6ue7K1t598EFYkUQGkqQ87Su7 u jSyzAYDgqPFWwN0tvnoyi8ykv etwHqVnBXIuNGb8YBk9FOAbsP yeEnQxPUL7TzY8PTR1mBKnjG1 h dAvgdtuafJ8sJdc+RmVtYWxlP Y11XE86dBVev8R7qNC1W6VyFS MmtlcujlsnkCU0JIMpPYWcbJ7 7 lHNiPNutXo5ft6T2l993NDQbA MDxdS45Rm1cpZxnFMXiiHOFyL 5ntckov9ktrxdeJwTcIZHbFDo 0 QIt2JVUmqSaaMsEhQPF8OqT0B PN2dHBxbP6fkKkttvvgoI0wMg c+TS6qvwizmpF8UG86GI19L1J y PjwvdGFibGU+PHRhYmxlIHdpZ JMeYPawRONfSlZveQzqMP7fQl 4hBBZmEJDyeWdvsBGxRaOwh4x s AKRcARceOF3bmDswO6QnuMO8S SPzx6h4Yc83S71fM9MpjCG+PG ImeQK5oDT8jM4uPpKeWyW1JMf p M963QcYhzTVrZkjnb1sil5vzc Gh3ToQcAHQjqtMclKdtVCH7k9 XwRn10Y84qGOxlQXLhCFKxZSU i QGVakYbfjm0ioM4lKt9+PGNvb UB4qWE4tX7iLaRmRiN0UMnuJ8 90HxQmcQRkUnwbE73lY1QzdRG + CQZmJlr4AMFjdGobKW9auTLgI NjtCh2cXQH2XpPnPqKgUMxcF3 IaCQXbjzfyhzoerFH8GBRnUYO w iY35Fk8enAdaTi6iXBNsXSK1N TRvtFKzQ2TvvY8dDfHiFGUyVN HaB3RsiYIrRAqnE039YLvwEgB 7 WFKrniNkE8GaUTAbsQhaJlS7z 6Q2Nn0KlCpqdINoJI8lRqRhZY o4K2RiRdv9CMAugHwuBG1lyIE k HBecXm2dmDetmJogCQ5tOWNop edrg294ZyZxf8icYPXxgKIuQJ rbYUV8A85fb2D8QYNrTIEjCYW 7 iIZ7xU6nqUoxpjkxcXMuyQxrg qLruFawJAdlRFztC353HRThcU kfCyUDJhj1B2CyKii5UHKwyEy s BU1vbUTeIPivOr5lkOpcgQczY N0mKKNbgyqgq162QiCkj6raFU ZzhDSaLUluEHY9N03tb7B3IGK w CHIdVSZ7yAX0dS4feTlwufqft GVmdDsgdmVydGljYWwtYWxpZ2 26ZRPulQuaXt6MRwy4C7NbUjb 0 NEJzgBbpMN8qzTWeDZdgZk0jp ZrwfUejNZ8wJDNceuaxm314Ru Kxt1vzIUItpXDdZHuxSPJ9B12 s i6H0QORjNPOiAAO5xMU8qS0ny GlnbjogbGVmdDsgdmVydGljYW bpXLtaH170IBDtyRbyUyMcjKG y OjwvdGQ+WJ27le10W1ChYwhjE eb8DUBmMYW5wAN4gC8xVUMzYF epa0L1rQH0K5MjlnBasv2zb9b s YXBz (more content not included)... Normal [facility] PT - Assessmentson PT - Assessments [id number]:1 [id number] Normal [facility] Consent for Treatmenton 02-28 Consent for Treatment [id number]:12 7 Normal [facility] ED Clinical Summaryon 2021 ED Clinical Summary (Inserted Image. Iqra ble to display) [place] [id number] ED Clinical Summary Person Information Name: YANI GERARD/[facility] Age: 81 Years : 1940 Sex: Female Language: Sudanese PCP: KYLE AMIN MD Marital Status: Visit Id: Visit Reason: N/ V -- WEAK Speciality: Acuity: Enc Type: Emergency Med Service: Emergency Arrival: 03/19/2022 19:29:11 Discharge: 03/19/2022 19:45:32 LOS: 000 00:16 Checkin: 03/19/2022 19:29:11 Checkout: 03/19/2022 19:45:32 Dispo Type: Left Without Being Seen EVENTS: Event Name Event Status Request Date/Time Start Date/Time Complete Date/Time Arrive Complete 03/19/2022 19:29:11 03/19/2022 19:29:11 03/19/2022 19:29:11 Document Home Meds Request 03/19/2022 19:29:11 Triage Request 03/19/2022 19:29:11 EKG Request 03/19/2022 19:41:42 Bed Assign Complete 03/19/2022 19:41:59 03/19/2022 19:41:59 03/19/2022 19:41:59 Dr Exam Request 03/19/2022 19:41:59 RN Exam Request 03/19/2022 19:41:59 Discharge Complete 03/19/2022 19:45:46 03/19/2022 19:45:46 03/19/2022 19:45:46 Transfer Complete 03/19/2022 19:45:46 03/19/2022 19:45:46 03/19/2022 19:45:46 ADDRESS: [address] [id number] PHYS DOC NOTES: MEDICAL INFORMATION: Prescriptions Given: Medications to Continue with No Changes Other Medications amlodipine 10 Milligram By Mouth every day. clopidogrel (Plavix 75 mg Tab) 1 Tablets By Mouth every day. evolocumab (Repatha SureClick 140 mg/mL subcutaneous solution) 140 Milligram Subcutaneous every other week. ferrous gluconate (Fergon) 27 Milligram By Mouth every day. isosorbide mononitrate (isosorbide mononitrate 30 mg ER Tab) 1 Tablets By Mouth once a day (in the morning). levothyroxine (levothyroxine 75 mcg (0.075 mg) Tab) 1 Tablets By Mouth every day. losartan (losartan 25 mg Tab) 1 Tablets By Mouth 2 times a day. magnesium glycinate (magnesium glycinate 200 mg oral tablet) 1 Tablets By Mouth every day. metoprolol (Metoprolol succinate 50 mg ER Tablet) 50 Milligram By Mouth every day. potassium chloride (potassium chloride 20 mEq ER Tab) 1 Tablets By Mouth 2 times a day. pramipexole (pramipexole 0.5 mg) 1 Tablets By Mouth 3 times a day. ranolazine (ranolazine 1000 mg oral tablet, extended release) 1 Tablets By Mouth 2 times a day. PATIENT EDUCATION INFORMATION: Instructions: Follow up: DIAGNOSIS: Normal [facility] ED Patient Education Noteon 03-19-2022 ED Patient Education Note Normal [facility] ED Patient Summaryon 022 ED Patient Summary (Inserted Image. Iqra ble to display) [address] [address] Patient Discharge Instructions Person Information Name: YANI GERARD Age: 81 Years Arrival Date: 03/19/2022 19:29:11 Discharge Diagnosis: Primary Care Physician: KYLE AMIN MD Provider Information Primary Provider: [employer] Sales:None The exam and treatment you received in the Emergency Department were for an urgent problem and are not intended as complete care. It is important that you follow up with a doctor, nurse practitioner, or physician?s higher level teaching assistant for ongoing care. If your symptoms become worse or you do not improve as expected and you are unable to reach your usual health care provider, you should return to the Emergency Department. We are available 24 hours a day. YANI GERARD has been given the following list of patient education materials, prescriptions and follow-up instructions: Follow-up Instructions: In the event that this physician does not participate in your insurance network, please consult with your insurance company to find a nearby participating provider. Patient Education Materials: A MESSAGE TO ALL PATIENTS REGARDING OPIOIDS PRESCRIPTION OPIOIDS: WHAT YOU NEED TO KNOW Prescription opioids can be used to help relieve nvrogkmk-ax-rftahr pain and are often prescribed following a surgery or injury, or for certain health conditions. These medications can be an important part of the treatment but also come with serious risks. It is important to work with your healthcare provider to make sure you are getting the safest, most effective care. WHAT ARE THE RISKS AND SIDE EFFECTS OF OPIOID USE? Prescription opioids carry serious risks of addiction and overdose, especially with prolonged use. An opioid overdose, often marked by slowed breathing, can cause sudden . The use of prescription opioids can have a number of side effects as well, even when taken as directed: ? Tolerance?meaning you might need to take more of the medication for the same pain relief ? Physical dependence?meaning you have symptoms of withdrawal when a medication is stopped ? Increased sensitivity to pain ? Constipation ? Nausea, vomiting, and dry mouth ? Sleepiness and dizziness ? Confusion ? Depression ? Low levels of testosterone that can result in lower sex drive, energy, and strength ? Itching and sweating RISKS ARE GREATER WITH: ? History of drug misuse, substance use disorder, or overdose ? Mental health conditions (such as depression or anxiety) ? Sleep apnea ? Older age (65 years and older) ? Avoid alcohol while taking prescription opioids. Also, unless specifically advised by your health care provider, medications to avoid include: ? Benzodiazepines (such as Xanax or Valium) ? Muscle relaxants (such as Soma or Flexeril) ? Hypnotics (such as Ambien or Lunesta) ? Other prescription opioids KNOW YOUR OPTIONS Talk to your health care provider about ways to manage your pain that don?t involve prescription opioids. Some of these options may actually work better and have fewer risks and side effects. Options may include: ? Pain relievers such as acetaminophen, ibuprofen, and naproxen ? Some medication that are also used for depression or seizures ? Physical therapy and exercise ? Cognitive behavioral therapy, a psychological, goal-directed approach, in which patients learn how to modify physical, behavioral, and emotional triggers of pain and stress. IF YOU ARE PRESCRIBED OPIOIDS FOR PAIN: ? Never take opioids in greater amounts or more often than prescribed. ? Follow up with your primary health care provider. o Work together to create a plan on how to manage your pain. o Talk about ways to help manage your pain that don?t involve prescription opioids. o Talk about any and all concerns and side effects. ? Help prevent misuse and abuse o Never sell or share prescription opioids. o Never use another person?s prescription opioids. ? Store prescription opioids in a secure place and out of reach of others (this may include visitors, children, friends, and family). ? Safely dispose of unused prescription opioids: Find your community drug take-back program or your pharmacy mail-back program, or flush them down the toilet, following guidance from the Food and Drug Administration (www.fda.gov/Drugs/Resour cesForYou). ? Visit www.cdc.gov/drugoverdose to learn about the risks of opioids abuse and overdose. ? If you believe you may be struggling with addiction, tell your health career portals teacher and ask for guidance or call [facility]?S National Helpline at 5-333-417-JPGD. g Source: US Department of Health and Human Services/Center for Disease Control & Prevention [facility] Medications Given: Medication Dose Route No medications found. Medication Information: M (more content not included)... [facility] Progress Note-Nurseon 2021 Progress Note-Nurse Went to call pt. sandrine koenig to get her triaged and pt. actively getting in car and leaving. Normal [facility] Nonvisit Note - PTon 022 Nonvisit Note - PT Pt cancelled due to having a today. DAYNE [facility] Coding Summary.on 02-23-2022 Coding Summary. CD:[id number] Gh0bW w+PGhlYWQ+FS6AYMCgW15ioUO asG4DQ9uPPY7DHKNVZTRHHV8L XL5elRX2IUvsF3RapzBq KqryfKPrJS68WLg5YPE1mOujQ CslbV1jvXUdP3j8BcAeGL95yI 87GAoeBYHyHsE5FkCvbdmrtML y P7tnPfZhwUQzRih+PHRhYmxlI HdpZHRoPScxMDAlJyBzdHlsZT 0gXg5vYUWmAASeiToshHGlOrJ j u6fqUDHpKWogEK5unAtcP9Pnw SL0ZYKrp0e9Rx86oED+PHRkIH J5eMthBCjma374ZfObg5xjYJQ 3 dUFeLXhjDEK0T46rf9P4NIJfR HYuOMD7uVV7pF0bvByjvwlsS8 LzfSXeVxN5SRD3fVCwwY4faQf n jqwbrJ3xYas+C92VCE5VQHVBN D0TJjq0E1CaOijaoFX+PC90YW UiMH41pAMtuAYrm5ldsDp8WaZ w ZWGiFAJ6rUdaMKcgt6MmEPPjD 84jaOFyj6C4VEPprBmzlJXmGp ZgmYB9oD5uCXfwtpsag1ctlsh n Ekrqv2ktrg67sI11E27fNVceO IAgMAW6JLIeLUAdfEqgwg3yuD 9wIi8+LBwaa4bxk4xytSo9OiH w NXRlsiWniImmEEF6u7NwEs96L 1FxbKuwz7UpLwr5ly42uPCzu5 A6bNK4MUkgIACijE3bVAziSdP 6 QJOwDkVtbK76vGJnNJrqFe9zr AbiaUzeKW7pKVFelhxnGAPxbW 5bLJSyaCCwqNtoFG3iPOFbqft m c387FnScIWO4WXVncJVaP5Ifd M8dWjYhBJXyNJRiH0KbrYOjZM bbW196IWqxWwT2XVVridBmH4J s GNTgfQlaXiF7d2K7Gn8Fz8Xqs tbfLGU6TJojCHX7PtS7EyFhAq Y1P5WmIem6EOTyvZzgQJ5dA6V h JMXslydzzpemaXE7ISWyACZmz O48mQPuWHxaPx2dj8C7i164LQ HtHQEjwQ25Yy6csRcrCUErzLS U cL5gcyedv5itqwiwJrZrCFJuD Pg7BAz8FKSvdHucZhEuYJH0If M8QMY4rZTojD9gnSpzbbbcxC0 w Oyc+F84vcG8fUZR8MUE5ixbcX SHrbqVzBN65CV26N4SpGhhhbB FibGU+ZMSyzfSuhCrrIM0nBuD j o6rzr2YtRLesJ4TmQZXsFSuiG zq4IRDzEEZ0jES4cE9fBDXvYY ipj8L1gHD4T0UkkvQost0bl0e s BFHqREbhR02xoGFft5F2FSOuo BE3DBIatLsoIzHfpE06Jjl+PG YrhPxtk0XbWlieo9ytw8iocVi 9 CjVtTQOsiiNpnMzmFSU1k0RyC z83N12tFYeyYBYjKDPwJMBvJT HxlOhyuo7rnZ2xGx4+PGNvbCB 3 dPL0mK4kQGJxXvR9IRktF687N kIcoRJfDrwgb0dys9zfiRi1Mf AdVSMvjuSkpNucOQL9l8MyTy0 8 M73dKDmnJZIpIKRtFFCxOCHuf Ptwxz5kpY3rDm6+UK9tq4apnd 24lP84mBX+ZHUcZZZ1aGhiXIz w XHFnnG5oNKbhOgR6YZVkNsKyy K14pCRdTMqlTp6ywEmvaWoqMB 8vHQWwnghti014ZbBkn4krDSD w hZOjCOkxBZZ8A67gn7H0TCUzM COnYOG0rDL9qN5vsYrpreoadW BdwHvucfVjvHrzTRffWLobC26 6 IHRvcDsnPlBhdGllbnQgTmFtZ Id4E1CqTbv9ZMKxgLfhXY7bmS IlODkfEq3btOtmzWjrSW4hRUR p tquuy585GvDeo2nrUFFkbZIdF VwwZPN5H50sm6N9LMPqDNFsYN Y8iXV4oQ2nuDbsbcotrKMyaSe g bvQcdPjvWVrjMFrvB292OFVra AtmGgDddiTgSZEaoXW8YO54XI 95zZYyn5X0iPQ5I6HsFKXnbkz t qfrhzSJ6VLXaCRKhfV98Gp1vl BduRg6fEPEkENC9VOTwwDXvG2 CzzF8mYhLeFFGfNEEfF9OlfJC t MDofH157KIieUdP7BIShxyZoN 0KpNDOohWhvMyH4c9S7Xt0GN6 B0AP18DU97rMIdv2M6fRS5D5T h YSWnxcakazvqdXQ9BXXcHLDuq R40Vs3auYjdSz6uNELjTQI8JT PbwMSpI8VczP2zGbWbEVHkOPS w M5ZnvMQaYWpaM874PZosKzC5O CNrxuTfY6NiHVRnoJrjQmU5n3 F6Ya2QAKf1RW91NO43iHYkf5E 5 uLQ2C0FnFWZebjiepfdhvLP2N PMbXXCvyT97Zd1cpMbnVk3vEZ GaPWO5JNMzaEDmU4TcpP5qEaA j ZJUvKMMgR0KsiYVdAFsaG051Q ZrtOhQ8JENmtuFqU5QdWUBdaX xyFvK0r8T7Ga2GDDNiHW80GVM 5 lJF2IK66FD87R4KgIhcszBKbr +PHRhYmxlIHdpZHRoPScxMD JyTaVmaVnmJW9tGd7iTMRnPAR v jIlifVQtDjYaf2vlABHaFYfnR E9dsDagM8WhlTL0NSGjx8o2Cd 09G72pF8HfsNH+TUJueLT6vHR 0 vN0lRoVnUpB7SItsD410TcDmg JToAztxz2dry3ukvKh1AeR3AQ WnchPhrDznJEW6v7IrVp61F59 s IHdpZHRoPSIxNSUiIHZhbGlnb p3knN0jVm0+PBMffYB8sJF5nJ 6bDvJyZlO6JGtzD652AvJbkOZ v Xhhmh3nef2luzVu0FqBaNJDla fCwgFcfUVF3k6MeGo66S6DtiI ryq0NlSif5xp74qWKfq8Y4aHR 9 Z9UeTGGhyduuhDKsmQhbTH9nK XRtkldtTAEkfP3vPLZxA5t7Xv ShBjI0XQpyQ3QvcuH1HXTvaDE g BRuaUTK8X31up5X8DURhHARiF LZ7uRP0jV5mlAlqvyblyCTqdW ksmyOruEojSKccQTyyY146FUC v mKkgNICdyJ3oFZWyoCGkyKucE Q5rAAMdtoxsNfHPRFNIQGubLZ hRTSoYGJMHYZ37WM74xUDim3P 5 rLJ8S8WlSKPjclbdhtegsFP8A FZvLDZfkN34ySPuNVxiTg3cu6 V5s356KNHzRKMgqL76Qr7mnWy g CIEarUGHtW0ebgkep9cgrkuwC rPjJGGkPGh2UIc7OMRjwArvMa WsJXC6CfF3ISZ9jVJasM3rnUn n kdvhhD7zYll+TXnlUohtLHq0F DwvdGQ+DANfXSZ4jDceUUfbMX YrnD5vNTFrV4e2HtLoKpP3HVk u Z5MkDZBcmltgOa68mM4uXkZvL lT0ANokI4DikeU9ZLImvHChXH yaIEY4O09nj2R3BQBrENLhTOT 7 nEI2iQ2bbJmdivffzMJmcJwks cVqgKsiTYwuPAtyG963FNGdiR wmGsweQGvjEFQeHU35JU01wXP g z5J0wCT6Y9HhEFDckkbwdwfsq SB9KMLyLLSpgR42rYCrSUdjLk 4vu9Y9o098CLTsNUQvkY95Xt6 u kKonFZFpwGEHwF7mzugsy4bxs eucCuRwCFXcWEn4GVv1OXKugF dsRcIrALL7SpF8VYQ9qWPyzX5 h pIataeoujS7bKvj+RmVtYWxlP D12IT03aVWrq8R8wVO1I4UwBQ YsftbevdepoWP1JCNgJVVqeT2 7 mBXfXWusWu6of8F4q336VZDpF FIfoM79Av5lxGgbSRCogXCNoK 3ibnqoq4ziafujCgTxHQEeKIa 0 OOf1XLOlgLcwMyNfFXH8PaA4A TA9yZMzpM5awFkruftulN4zLp c+QnGpuWErbG1dZC28HX50K9Q y PjwvdGFibGU+PHRhYmxlIHdpZ TMeUZqdPOHeRlOdpQzuRQ9aRb 7tBDFxCFIjgAyewHWhAdRag9r s VMMqGZdkIU0okIwqB5CqtLY3I ADqg0r6Uu42B04sY0NtiBA+PG TtpTX7sBE1aK6qUpRfLoK6ESv p C794StPomUGtKojow2rjl7cff Mo9VnBaLVHdawCxgPghVWV4v4 JzUx14Y24fLHfaXATgYWBbAXO i MHZjhNlufr9nbF0lQl6+PGNvb BA5kUR0lH9vQnHlGmO2FUszB3 93OgUwpPAwCfjkG09vG8WlwLG + GLOfEwk6UTFxjZcqUX2oyZLtB CurJa5bPJB6MpRjFlDbTMvtS4 ZeGPIeceuihimlwKB7PUOdFOY w aN89Rc8kvRpzDv1dMGJuMUA9E MRsqNBaV3UrnP2pAsTaYJWcQY UhM1GlaRFwZFrvR849WZpcSoG 7 BDGlgjJnS4HlQJDebZdrCfX4x 4P2Pg5ReRakpFKwAG1uTlQmPV h0A9WfGvc5SRUpwEwpML4xzFC k WGlyIy2puQocnBzaTX0rTRAan dlcf325CrMjl9wjZYOgpURrUH xnKCL1V61of6P6YOTdQMUpHHQ 7 eEE9fM8bvWtvfoaxyDKdjPtyw tTxuOhzUVknNOmeS600OULpmY wwEoTPUks6S4BmZde5AOFdyDr s RH6ycOFrAAbuHj4opTqegJehK K7dLIBhuyout358KkQts9ugUD AoqUGdHNbwWOS8N88au7V5OLW w LACuTWB4nJF2vL6vzTicfrpbb GVmdDsgdmVydGljYWwtYWxpZ2 45HDXqyBkyZz0OBjo6G7RfVlg 0 CIIfzSlzXY6rfDIpUGvtOj9nn GgekOxgHQ1tSOVnifhlu429Cu Etb7tsWRIubZXcEFvsMUL1O68 s q8B2XHDaNCVuGLH4yQR6fL1jy GlnbjogbGVmdDsgdmVydGljYW syERqbD473EYUqnWyeMsQsrRN y OjwvdGQ+GM60pp11G0XlCgsxB ud7DRWuQIR7vNF0fV4vGEDjCF xhh0P5xKO7N5IxpuGirf6yj0n s YXBz (more content not included)... [facility] Interdisciplinary Note - PTo n 02-22-2022 Interdisciplinary Note - PT [id number]#1.00CD:1 27 [facility] PT - Assessmentson PT - Assessments [id number]#1.00CD:1 27 [facility] PT - Consentson 02-21-2022 PT - Consents [id number]#1.00CD:1 27 [facility] PT - Home Exercise Programon 02-21-2022 PT - Home Exercise Program [id number]#1.00CD:1 27 [facility] PT - Otheron 02-18-2022 PT - Other [id number]#1.00CD:12 7 [facility] PT - Orderson 02-17-2022 PT - Orders [id number]#1.00CD:12 7 [facility] Medication Listson Medication Lists [id number]#1.00CD:12 7 [facility] PT - Orderson 02-15-2022 PT - Orders [id number]#1.00CD:12 7 [facility] XR Chest 2 Views*on 02-03-20 XR Chest 2 Views* CLINICAL HISTORY: Follow-up lung nodule COMPARISON: CT chest 09/23/20.. TECHNIQUE: Chest radiographs, PA and lateral RESULT: No consolidation. Bibasilar atelectasis. Previously noted left lower lobe nodules are not visualized on this examination No pleural effusion. No pneumothorax. Normal pulmonary vascular pattern. Stable cardiomediastinal silhouette.Mild atherosclerotic calcification of aortic arch. No acute osseous findings. IMPRESSION: No acute radiographic abnormality. Previously noted left lobe pulmonary nodules are not visualized. Recommend CT of the chest. Report reported and signed by LILIAM IRVIN on 02/03/2022 1416 Normal [facility] Thermodynamics Professor BASIC METABOLIC PANELon 12-29 Calcium [Mass/Vol] 7.6 mg/dL Low 8.6-10.3 [facility] Comment on above: Order Comment: No: D o not add to previous draw Performed By: #### 3 1791 #### [facility] [address] [place] [address], [place] Chloride [Moles/Vol] 103 mmol/L Normal 98-107 [facility] Comment on above: Order Comment: No: D o not add to previous draw Performed By: #### 3 1791 #### [facility] [address] [place] [address], [place] CO2 [Moles/Vol] 28 mmol/L Normal 21-31 [facility] Comment on above: Order Comment: No: D o not add to previous draw Performed By: #### 3 1791 #### [facility] [address] [place] [address], [place] Creatinine [Mass/Vol] 0.54 mg/dL Low 0.60-1.20 [facility] Comment on above: Order Comment: No: D o not add to previous draw Performed By: #### 3 1791 #### [facility] [address] [place] [address], [place] GFR/1.73 sq M.predicted among blacks MDRD (S/P/Bld) [Vol rate/Area] mL/min/{1.73_m2} Normal >60 [facility] Comment on above: Order Comment: No: D o not add to previous draw Result Comment: Calc ulation may not be valid for patients over 70 years Performed By: #### 3 1791 #### [facility] [address] [place] [address], [place] GFR/1.73 sq M.predicted among non-blacks MDRD (S/P/Bld) [Vol rate/Area] mL/min/{1.73_m2} Normal >60 [facility] Comment on above: Order Comment: No: D o not add to previous draw Result Comment: Calc ulation may not be valid for patients over 70 years Performed By: #### 3 1791 #### [facility] [address] [place] [address], [place] Glucose [Mass/Vol] 99 mg/dL Normal 70-100 [facility] Comment on above: Order Comment: No: D o not add to previous draw Performed By: #### 3 179 #### [facility] [address] [place] [address], [place] Potassium [Moles/Vol] 3.9 mmol/L Normal 3.5-5.1 [facility] Comment on above: Order Comment: No: D o not add to previous draw Performed By: #### 3 179 #### [facility] [address] [place] [address], [place] Sodium [Moles/Vol] 135 mmol/L Low 136-145 [facility] Comment on above: Order Comment: No: D o not add to previous draw Performed By: #### 3 1791 #### [facility] [address] [place] [address], [place] Urea nitrogen [Mass/Vol] 9 mg/dL Normal 7-25 [facility] Comment on above: Order Comment: No: D o not add to previous draw Performed By: #### 3 179 #### [facility] [address] [place] [address], [place] BASIC METABOLIC PANELon 03-2 Calcium [Mass/Vol] 8.0 mg/dL Low 8.6-10.3 [facility] Comment on above: Order Comment: No: D o not add to previous draw Performed By: #### 0 0071 #### [facility] [address] [place] [address], [place] Chloride [Moles/Vol] 99 mmol/L Normal 98-107 [facility] Comment on above: Order Comment: No: D o not add to previous draw Performed By: #### 0 0071 #### [facility] [address] [place] [address], [place] CO2 [Moles/Vol] 28 mmol/L Normal 21-31 [facility] Comment on above: Order Comment: No: D o not add to previous draw Performed By: #### 0 0071 #### [facility] [address] [place] [address], [place] Creatinine [Mass/Vol] 0.63 mg/dL Normal 0.60-1.20 [facility] Comment on above: Order Comment: No: D o not add to previous draw Performed By: #### 0 0071 #### [facility] [address] [place] [address], [place] GFR/1.73 sq M.predicted among blacks MDRD (S/P/Bld) [Vol rate/Area] mL/min/{1.73_m2} Normal >60 [facility] Comment on above: Order Comment: No: D o not add to previous draw Result Comment: Calc ulation may not be valid for patients over 70 years Performed By: #### 0 [id number] #### [facility] [address] [place] [address], [place] GFR/1.73 sq M.predicted among non-blacks MDRD (S/P/Bld) [Vol rate/Area] mL/min/{1.73_m2} Normal >60 [facility] Comment on above: Order Comment: No: D o not add to previous draw Result Comment: Calc ulation may not be valid for patients over 70 years Performed By: #### 0 0071 #### [facility] [address] [place] [address], [facility] Glucose [Mass/Vol] 107 mg/dL High 70-100 [facility] Comment on above: Order Comment: No: D o not add to previous draw Performed By: #### 0 0071 #### [facility] [address] [place] [address], [facility] Potassium [Moles/Vol] 4.2 mmol/L Normal 3.5-5.1 [facility] Comment on above: Order Comment: No: D o not add to previous draw Performed By: #### 0 0071 #### [facility] [address] [place] [address], [facility] Sodium [Moles/Vol] 132 mmol/L Low 136-145 [facility] Comment on above: Order Comment: No: D o not add to previous draw Performed By: #### 0 0071 #### [facility] [address] [place] [address], [facility] Urea nitrogen [Mass/Vol] 10 mg/dL Normal 7-25 [facility] Comment on above: Order Comment: No: D o not add to previous draw Performed By: #### 0 0071 #### [facility] [address] [facility] [place] [address], [facility] CBC W/DIFFon 01-22-2022 ABS IMM GRANS 0.1 10*3/uL Normal 0.0-0.2 [facility] Comment on above: Order Comment: No: D o not add to previous draw Performed By: #### 0 0071 #### [facility] [address] [place] [address], [facility] ABS NEUTROPHILS 6.2 10*3/uL Normal 1.6-7.6 [facility] Comment on above: Order Comment: No: D o not add to previous draw Performed By: #### 0 0071 #### [facility] [address] [facility] [place] [address], [facility] Basophils (Bld) [#/Vol] 0.0 10*3/uL Normal 0.0-0.2 [facility] Comment on above: Order Comment: No: D o not add to previous draw Performed By: #### 0 0071 #### [facility] [address] [place] [address], [facility] Basophils/100 WBC (Bld) 0.1 % Normal 0.0-1.0 [facility] Comment on above: Order Comment: No: D o not add to previous draw Performed By: #### 0 0071 #### [facility] [address] [facility] [address], [facility] Eosinophils (Bld) [#/Vol] 0.1 10*3/uL Normal 0.0-0.5 [facility] Comment on above: Order Comment: No: D o not add to previous draw Performed By: #### 0 0071 #### [facility] [address] [place] [address], [facility] Eosinophils/100 WBC (Bld) 1.5 % Normal 0.0-6.0 [facility] Comment on above: Order Comment: No: D o not add to previous draw Performed By: #### 0 0071 #### [facility] [address] [facility] [address], [facility] Erythrocyte distribution width (RBC) [Ratio] 14.0 % Normal 11.5-15.0 [facility] Comment on above: Order Comment: No: D o not add to previous draw Performed By: #### 0 0071 #### [facility] [address] [place] [address], [facility] Hematocrit (Bld) [Volume fraction] 30.8 % Low 36.0-45.0 [facility] Comment on above: Order Comment: No: D o not add to previous draw Performed By: #### 0 0071 #### [facility] [address] [place] [address], [facility] Hemoglobin (Bld) [Mass/Vol] 10.0 g/dL Low 12.0-15.0 [facility] Comment on above: Order Comment: No: D o not add to previous draw Performed By: #### 0 0071 #### [facility] [address] [facility] [place] [address], [facility] IMMATURE GRANS 0.6 % Normal 0.0-1.0 [facility] Comment on above: Order Comment: No: D o not add to previous draw Performed By: #### 0 0071 #### [facility] [address] [place] [address], [facility] Lymphocytes (Bld) [#/Vol] 0.8 10*3/uL Low 1.2-4.0 [facility] Comment on above: Order Comment: No: D o not add to previous draw Performed By: #### 0 0071 #### [facility] [address] [place] [address], [facility] Lymphocytes/100 WBC (Bld) 10.3 % Low 20.0-45.0 [facility] Comment on above: Order Comment: No: D o not add to previous draw Performed By: #### 0 [id number] #### [facility] [address] [place] [address], [facility] MCH (RBC) [Entitic mass] 33.1 pg High 27.0-33.0 [facility] Comment on above: Order Comment: No: D o not add to previous draw Performed By: #### 0 0071 #### [facility] [address] [place] [address], [facility] MCHC (RBC) [Mass/Vol] 32.5 g/dL Normal 32.0-35.0 [facility] Comment on above: Order Comment: No: D o not add to previous draw Performed By: #### 0 [id number] #### [facility] [address] [place] [address], [facility] MCV (RBC) [Entitic vol] 102.0 fL High 82.0-98.0 [facility] Comment on above: Order Comment: No: D o not add to previous draw Performed By: #### 0 0071 #### [facility] [address] [facility] [place] [address], [facility] Monocytes (Bld) [#/Vol] 0.6 10*3/uL Normal 0.1-1.0 [facility] Comment on above: Order Comment: No: D o not add to previous draw Performed By: #### 0 [id number] #### [facility] [address] [place] [address], [facility] MONOS 7.3 % Normal 5.0-12.0 [facility] Comment on above: Order Comment: No: D o not add to previous draw Performed By: #### 0 [id number] #### [facility] [address] [place] [address], [facility] Neutrophils/100 WBC (Bld) 80.2 % High 40.0-72.0 [facility] Comment on above: Order Comment: No: D o not add to previous draw Performed By: #### 0 [id number] #### [facility] [address] [place] [address], [facility] Nucleated RBC/100 WBC (Bld) [Ratio] 0 % Normal 0-0 [facility] Comment on above: Order Comment: No: D o not add to previous draw Performed By: #### 0 [id number] #### [facility] [address] [place] [address], [facility] PLAT CNT 377 10*3/uL Normal 150-400 [facility] Comment on above: Order Comment: No: D o not add to previous draw Performed By: #### 0 [id number] #### [facility] [address] [place] [address], [facility] RBC (Bld) [#/Vol] 3.02 10*6/uL Low 3.80-5.00 [facility] Comment on above: Order Comment: No: D o not add to previous draw Performed By: #### 0 0071 #### [facility] [address] [place] [address], [facility] WBC (Bld) [#/Vol] 7.79 10*3/uL Normal 4.00-10.60 [facility] Comment on above: Order Comment: No: D o not add to previous draw Performed By: #### 0 0071 #### [facility] [address] [place] [address], [facility] HEMOGLOBINon 01-19-2022 Hemoglobin (Bld) [Mass/Vol] 8.6 g/dL Low 12.0-15.0 [facility] Comment on above: Order Comment: No: D o not add to previous draw Performed By: #### 9 [id number] #### [facility] [address] [place], [place] [id number] [place] [address] VITAMIN D 25-HYDROXYon 01-19 VITAMIN D 25-OH 21.9 ng/mL Low 30.0-80.0 [facility] Comment on above: Result Comment: >80. 0 Toxicity possible Performed By: #### 3 0728 #### [facility] [address] [place] [address], [facility] HIP RIGHT 1 OR 2 VWS WITH PE LVISon 01-18-2022 HIP RIGHT 1 OR 2 VWS WITH PELVIS [facility] Department of Radiology [address] [place] [id number] Patient Name: YANI GERARD : 1940 Sex: F Age: Race: White Pt. Location: 84 Patient Status: I Ordered Date: 01/18/2022 2:15:00 PM Completed Date: 01/18/2022 02:36 PM Requesting Provider: HENRRY ELIZONDO Attending Provider: HENRRY ELIZONDO Report Copy To: Signs & Symptoms: M25.551 Pain in right hip I10 History: Martha Comments: Evaluate Exam: HIP RIGHT 1 OR 2 VWS WITH PELVIS HIP RIGHT 1 OR 2 VWS WITH PELVIS 01/18/2022 2:37 PM CLINICAL INDICATIONS: M25.551 Pain in right hip I10 TECHNOLOGIST COMMENTS: History of right hip surgery 01/10/2022. Ortho follow up. QUESTION FOR THE RADIOLOGIST: Evaluate PROTOCOL: AP(PA) and Lateral views were obtained. COMPARISON: January 10, 2022 IMPRESSION: PELVIS: No displaced or pelvic fracture. Expansile remodeling of the acetabulum. Degenerative changes lower lumbar spine. RIGHT HIP: Right total hip arthroplasty. No hardware complication. Trace residual soft tissue emphysema. Electronically signed: Jake Schaffer. Transcribed by: [email or web address], User Resident: Electronically Signed by: JAKE SCHAFFER @ 01/19/2022 11:33 AM Normal [facility] Comment on above: Order Comment: Evalu ate BASIC METABOLIC PANELon 12-28 Calcium [Mass/Vol] 7.7 mg/dL Low 8.6-10.3 [facility] Comment on above: Order Comment: No: D o not add to previous draw Performed By: #### 3 0728 #### [facility] [address] [place] [address], [facility] Chloride [Moles/Vol] 104 mmol/L Normal 98-107 [facility] Comment on above: Order Comment: No: D o not add to previous draw Performed By: #### 3 0728 #### [facility] [address] [place] [address], [place] CO2 [Moles/Vol] 26 mmol/L Normal 21-31 [facility] Comment on above: Order Comment: No: D o not add to previous draw Performed By: #### 3 0728 #### [facility] [address] [place] [address], [place] Creatinine [Mass/Vol] 0.58 mg/dL Low 0.60-1.20 [facility] Comment on above: Order Comment: No: D o not add to previous draw Performed By: #### 3 0728 #### [facility] [address] [place] [address], [place] GFR/1.73 sq M.predicted among blacks MDRD (S/P/Bld) [Vol rate/Area] mL/min/{1.73_m2} Normal >60 [facility] Comment on above: Order Comment: No: D o not add to previous draw Result Comment: Calc ulation may not be valid for patients over 70 years Performed By: #### 3 0728 #### [facility] [address] [place] [address], [place] GFR/1.73 sq M.predicted among non-blacks MDRD (S/P/Bld) [Vol rate/Area] mL/min/{1.73_m2} Normal >60 [facility] Comment on above: Order Comment: No: D o not add to previous draw Result Comment: Calc ulation may not be valid for patients over 70 years Performed By: #### 3 0728 #### [facility] [address] [place] [address], [place] Glucose [Mass/Vol] 109 mg/dL High 70-100 [facility] Comment on above: Order Comment: No: D o not add to previous draw Performed By: #### 3 0728 #### [facility] [address] [place] [address], [place] Potassium [Moles/Vol] 4.0 mmol/L Normal 3.5-5.1 [facility] Comment on above: Order Comment: No: D o not add to previous draw Performed By: #### 3 0728 #### [facility] [address] [place] [address], [facility] Sodium [Moles/Vol] 136 mmol/L Normal 136-145 [facility] Comment on above: Order Comment: No: D o not add to previous draw Performed By: #### 3 0728 #### [facility] [address] [place] [id number], [facility] Urea nitrogen [Mass/Vol] 16 mg/dL Normal 7-25 [facility] Comment on above: Order Comment: No: D o not add to previous draw Performed By: #### 3 0728 #### [facility] [address] [place] [address], [facility] CBC COMPLETE BLOOD COUNTon 0 - Erythrocyte distribution width (RBC) [Ratio] 13.2 % Normal 11.5-15.0 [facility] Comment on above: Order Comment: No: D o not add to previous draw Performed By: #### 0 0071 #### [facility] [address] [place] [id number], [facility] Hematocrit (Bld) [Volume fraction] 34.7 % Low 36.0-45.0 [facility] Comment on above: Order Comment: No: D o not add to previous draw Performed By: #### 0 0071 #### [facility] [address] [place] [address], [facility] Hemoglobin (Bld) [Mass/Vol] 11.3 g/dL Low 12.0-15.0 [facility] Comment on above: Order Comment: No: D o not add to previous draw Performed By: #### 0 0071 #### [facility] [address] [place] [id number], [place] MCH (RBC) [Entitic mass] 33.4 pg High 27.0-33.0 [facility] Comment on above: Order Comment: No: D o not add to previous draw Performed By: #### 0 0071 #### [facility] [address] [place] [id number], [facility] MCHC (RBC) [Mass/Vol] 32.6 g/dL Normal 32.0-35.0 [facility] Comment on above: Order Comment: No: D o not add to previous draw Performed By: #### 0 0071 #### [facility] [address] [place] [id number], [facility] MCV (RBC) [Entitic vol] 102.7 fL High 82.0-98.0 [facility] Comment on above: Order Comment: No: D o not add to previous draw Performed By: #### 0 0071 #### [facility] [address] [place] [address], [facility] Nucleated RBC/100 WBC (Bld) [Ratio] 0 % Normal 0-0 [facility] Comment on above: Order Comment: No: D o not add to previous draw Performed By: #### 0 0071 #### [facility] [address] [place] [id number], [facility] PLAT CNT 240 10*3/uL Normal 150-400 [facility] Comment on above: Order Comment: No: D o not add to previous draw Performed By: #### 0 0071 #### [facility] [address] [place] [id number], [facility] RBC (Bld) [#/Vol] 3.38 10*6/uL Low 3.80-5.00 [facility] Comment on above: Order Comment: No: D o not add to previous draw Performed By: #### 0 0071 #### [facility] [address] [place] [id number], [facility] WBC (Bld) [#/Vol] 10.32 10*3/uL Normal 4.00-10.60 [facility] Comment on above: Order Comment: No: D o not add to previous draw Performed By: #### 0 0071 #### [facility] [address] [place], [place] [address] Operative Reporton Operative Report MR#: [id number] I [facility] Pt. Name: Yani Gerard Room #: [id number] Discharge Date: Birthdate: 1940 OPERATIVE REPORT DATE OF SURGERY: 01/10/2022 SURGEON: Guero Morse M.D. ASSISTANTS: 1. Fidel Mayfield MD. 2. ZOILA Adair. ANESTHESIA: General anesthesia. ESTIMATED BLOOD LOSS: Per Anesthesia note. COMPLICATIONS: None. SPECIMEN: Right hip routine culture and sensitivity x3. PREOPERATIVE DIAGNOSIS: Right total hip arthroplasty loosening. POSTOPERATIVE DIAGNOSIS: Right total hip arthroplasty loosening. PROCEDURE: Right total hip arthroplasty revision. COMPONENTS: 1. Biomet G7 size 58 multi hole acetabular shell. 2. Three acetabular screws. 3. 36 inner diameter polyethylene insert. 4. 36 standard ceramic taper adapter for femoral head. 5. 36 mm ceramic femoral head. 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 She continued to have pain despite nonoperative measures and she elected for total hip arthroplasty revision for treatment of pain. OPERATIVE COURSE: The patient was brought to the operating room and placed supine on operative room table. General anesthesia was obtained. The bilateral lower extremities were prepped and draped sterilely. A time-out was completed. Preoperative antibiotics confirmed and given. I made the incision on the previous incision on the right hip. I dissected down the overlying tensor fascia, then incised the tensor fascia. The tensor fascia was retracted laterally. The deep fascia was perforated and some vessels were identified and cauterized. I then exposed the anterior portion of femoral neck region. The partial capsulectomy was performed. Some soft tissue sent for routine culture and sensitivity as well as the fluid. I then dissected around the acetabular component as well as exposing a little bit of the lateral capsular tissue. This allowed me to dislocate the femoral head and then impacted the head off the taper. The femoral component was well fixed. I then exposed the acetabulum. I went around the acetabular component. I had to remove a little bit of bone superiorly. I then noted the component appeared to be fibrous and ingrown. I removed the polyethylene with a drill and screw. I removed the previously placed screws. I then went around the cup with the explant device, removed the fibrous tissue. This was then removed. I inspected the joint. I noted that the bone had good circumferential coverage. I then reamed it sequentially up to a total size 57 with good rim fit. The bone appeared to be bleeding. I placed a trial and noted that there would be press-fit. I then placed the real implant down and seated it completely. This had good initial fit. I drilled and placed 3 acetabular screws. I then placed a trial liner into position. I trialed this with multiple neck lengths noted that I had to go up to a size standard neck length to get acceptable stability. I then re-dislocated the femoral head. I removed the acetabular and femoral trials. I then placed the real acetabular liner into position and seated it completely. I then placed the head on the clean dry taper and malleted it down. I relocated the hip and stability was acceptable. The final pictures were taken. The tensor was closed with soft #2 Quill suture. The remainder of the incision was closed in layered fashion. Sterile dressing applied. At the conclusion of the case, all sponge and needle counts correct. I was present for the critical portions of this case. Electronically Signed by: Guero Morse M.D. 01/15/2022 07:42 P Guero Morse M.D. Date Dict: 01/11/2022/07:51 A/Guero Mrose M.D. Date Trans: 01/11/2022 09:00 Jyoti/tricia [id number] cc: Kyle Amin M.D. [address] [place] [address] [facility] PORTABLE CHEST 1 VIEWon 12-28 PORTABLE CHEST 1 VIEW [facility] Department of Radiology [address] [place] [id number] Patient Name: YANI GERARD : 1940 Sex: F Age: Race: White Pt. Location: [id number] Patient Status: I Ordered Date: 01/11/2022 5:20:00 AM Completed Date: 01/11/2022 07:56 AM Requesting Provider: CHRISTINE PADILLA Attending Provider: GUEOR MORSE Report Copy To: Signs & Symptoms: Chest Pain History: Comments: Evaluate for Atelectasis Exam: PORTABLE CHEST 1 VIEW PORTABLE CHEST 1 VIEW 01/11/2022 7:56 AM CLINICAL INDICATIONS: Chest Pain TECHNOLOGIST COMMENTS: Chest pain QUESTION FOR THE RADIOLOGIST: Evaluate for Atelectasis PROTOCOL: AP(PA) view was obtained. COMPARISON: None Impression: 1. The lungs are clear. There are no effusions or pneumothorax. The mediastinal structures are unremarkable. Electronically signed: Gregorio Parmar. Transcribed by: [email or web address], User Resident: Electronically Signed by: GREGORIO PARMAR @ 01/11/2022 08:19 AM Normal [facility] Comment on above: Order Comment: No: D o not add to previous draw TROPONIN-Ion 01-11-2022 Troponin I.cardiac [Mass/Vol] 0.01 ng/mL Normal 0.00-0.04 [facility] Comment on above: Order Comment: No: D o not add to previous draw Result Comment: REFE RENCE RANGES: 0.00 - 0.04 ng/ml NORMAL 0.05 - 0.50 ng/ml INDETERMINATE > 0.50 ng/ml CONSISTENT WITH AN M.I. Performed By: #### 3 5200 #### [facility] [address] Troponin I.cardiac [Mass/Vol] 0.01 ng/mL Normal 0.00-0.04 [facility] Comment on above: Order Comment: No: D o not add to previous draw Result Comment: REFE RENCE RANGES: 0.00 - 0.04 ng/ml NORMAL 0.05 - 0.50 ng/ml INDETERMINATE > 0.50 ng/ml CONSISTENT WITH AN M.I. Performed By: #### 3 5200 #### [facility] [address] [place] [address], [facility] Troponin I.cardiac [Mass/Vol] 0.00 ng/mL Normal 0.00-0.04 [facility] Comment on above: Result Comment: REFE RENCE RANGES: 0.00 - 0.04 ng/ml NORMAL 0.05 - 0.50 ng/ml INDETERMINATE > 0.50 ng/ml CONSISTENT WITH AN M.I. Performed By: #### 3 0728 #### [facility] [address] *ANAEROBIC CULTUREon 022 *ANAEROBIC CULTURE Clinical Report: (D) Specimen/Source: TISSUE/INTRAOP SPEC Collected: 01/10/2022 13:30 Status: Final Last Updated: 01/15/2022 09:07 (1) 3. Right hip anterior capsule CULT RES (Final) No Anaerobes Isolated 5 Days Normal [facility] Comment on above: Order Comment: 3. Ri ght hip anterior capsule Performed By: #### 3 0312 #### [facility] [address] *ANAEROBIC CULTURE Clinical Report: (D) Specimen/Source: TISSUE/INTRAOP SPEC Collected: 01/10/2022 13:30 Status: Final Last Updated: 01/15/2022 09:07 (1) 2. Right hip superior capsule CULT RES (Final) No Anaerobes Isolated 5 Days Normal [facility] Comment on above: Order Comment: No: D o not add to previous draw Performed By: #### 0 0071 #### [facility] [address] *ANAEROBIC CULTURE Clinical Report: (D) Specimen/Source: FLUID/INTRAOP SPEC Collected: 01/10/2022 13:30 Status: Final Last Updated: 01/15/2022 09:07 (1) 1. Right hip joint fluid CULT RES (Final) No Anaerobes Isolated 5 Days Normal [facility] Comment on above: Order Comment: No: D o not add to previous draw Performed By: #### 0 0071 #### [facility] [address] *BODY FLUID CULTUREon 2021 *BODY FLUID CULTURE Clinical Report: (D) Specimen/Source: FLUID/INTRAOP SPEC Collected: 01/10/2022 13:30 Status: Final Last Updated: 01/15/2022 06:55 (1) 1. Right hip joint fluid GRAM (Final) Moderate Polys No Bacteria Seen CULT RES (Final) No Growth Day 5 Normal [facility] Comment on above: Order Comment: No: D o not add to previous draw Performed By: #### 0 0071 #### [facility] [address] [facility] [address], [facility] *TISSUE CULTUREon 01-10-2022 *TISSUE CULTURE Clinical Report: (D) Specimen/Source: TISSUE/INTRAOP SPEC Collected: 01/10/2022 13:30 Status: Final Last Updated: 01/15/2022 06:54 (1) 3. Right hip anterior capsule GRAM (Final) Few Polys No Bacteria Seen CULT RES (Final) No Growth Day 5 Normal [facility] Comment on above: Order Comment: No: D o not add to previous draw Performed By: #### 0 0071 #### [facility] *TISSUE CULTURE Clinical Report: (D) Specimen/Source: TISSUE/INTRAOP SPEC Collected: 01/10/2022 13:30 Status: Final Last Updated: 01/15/2022 06:55 (1) 2. Right hip superior capsule GRAM (Final) No Polys Seen No Bacteria Seen CULT RES (Final) No Growth Day 5 Normal [facility] Comment on above: Order Comment: No: D o not add to previous draw Performed By: #### 0 0071 #### [address] HIP RIGHT 1 OR 2 VWS WITH PE LVISon 01-10-2022 HIP RIGHT 1 OR 2 VWS WITH PELVIS [facility] Department of Radiology [address] [place] [phone] Patient Name: YANI GERARD : 1940 Sex: F Age: Race: White Pt. Location: OUTP Patient Status: D Ordered Date: 01/10/2022 12:30:00 PM Completed Date: 01/10/2022 01:14 PM Requesting Provider: GUERO MORSE Attending Provider: GUERO MORSE Report Copy To: Signs & Symptoms: RIGHT ANTERIOR TOTAL HIP REVISION History: Comments: RIGHT ANTERIOR TOTAL HIP REVISION Exam: HIP RIGHT 1 OR 2 VWS WITH PELVIS HIP RIGHT 1 OR 2 VWS WITH PELVIS 01/10/2022 1:14 PM CLINICAL INDICATIONS: RIGHT ANTERIOR TOTAL HIP REVISION TECHNOLOGIST COMMENTS: 10 secs of fluoro used by Dr Morse QUESTION FOR THE RADIOLOGIST: RIGHT ANTERIOR TOTAL HIP REVISION IMPRESSION: Dictation for documentation purposes. Revision of total hip arthroplasty. 10 seconds of fluoroscopy utilized. 3 total images acquired. Total cumulative dose 2.05 mGy. Approved by:Aria Reyes01/10/2022 1:55 PM. I, Kelly Sumner,have reviewed the image(s) and agree with the findings in this report. Electronically signed: Kelly Sumner. Transcribed by: [email or web address], User Resident: ARIA GARCIA Electronically Signed by: KELLY SUMNER @ 01/10/2022 03:10 PM I personally read this/these film(s) with this resident Normal [facility] Comment on above: Order Comment: No: D o not add to previous draw POC GLUCOSE LABon 01-10-2022 Glucose [Mass/Vol] 94 mg/dL Normal 70-100 [facility] Comment on above: Performed By: #### 8 [id number] #### [facility] [address] [place] [address], [facility] APTTon 01-08-2022 aPTT Coag (Bld) [Time] 29.3 s Normal 25.0-35.0 Th e [facility] Comment on above: Result Comment: ALL RESULTS MUST BE INTERPRETED WITH RESPECT TO BLOOD DRAWING ARTIFACT OR DILUTION ERROR OF ANTICOAGULANT AT THE TIME OF SAMPLING. THE APTT SHOULD NOT BE USED TO MONITOR UNFRACTIONATED HEPARIN THERAPY, THIS LABORATORY NO LONGER HAS AN ESTABLISHED THERAPEUTIC RANGE BASED ON THE APTT. IT IS RECOMMENDED THAT THE U[facility] - HEPARIN ASSAY (ANTI-XA ACTIVITY) BE USED FOR THIS PURPOSE. Performed By: #### 3 1791 #### [facility] [address] [place] [address], [facility] BASIC METABOLIC PANELon 12-28 Calcium [Mass/Vol] 8.6 mg/dL Normal 8.6-10.3 [facility] Comment on above: Performed By: #### 3 0728 #### [facility] [address] [place] [address], [place] Chloride [Moles/Vol] 105 mmol/L Normal 98-107 [facility] Comment on above: Performed By: #### 3 0728 #### [facility] [address] [place] [address], [place] CO2 [Moles/Vol] 27 mmol/L Normal 21-31 [facility] Comment on above: Performed By: #### 3 0728 #### [facility] [address] [place] [address], [place] Creatinine [Mass/Vol] 0.60 mg/dL Normal 0.60-1.20 [facility] Comment on above: Performed By: #### 3 0728 #### [facility] [address] [place] [address], [place] GFR/1.73 sq M.predicted among blacks MDRD (S/P/Bld) [Vol rate/Area] mL/min/{1.73_m2} Normal >60 [facility] Comment on above: Result Comment: Calc ulation may not be valid for patients over 70 years Performed By: #### 3 0728 #### [facility] [address] [place] [address], [place] GFR/1.73 sq M.predicted among non-blacks MDRD (S/P/Bld) [Vol rate/Area] mL/min/{1.73_m2} Normal >60 [facility] Comment on above: Result Comment: Calc ulation may not be valid for patients over 70 years Performed By: #### 3 0728 #### [facility] [address] [place] [address], [place] Glucose [Mass/Vol] 81 mg/dL Normal 70-100 [facility] Comment on above: Performed By: #### 3 0728 #### [facility] [address] [place] [address], [place] Potassium [Moles/Vol] 3.6 mmol/L Normal 3.5-5.1 [facility] Comment on above: Performed By: #### 3 0728 #### [facility] [address] [place] [address], [facility] Sodium [Moles/Vol] 140 mmol/L Normal 136-145 [facility] Comment on above: Performed By: #### 3 0728 #### [facility] [address] [place] [address], [facility] Urea nitrogen [Mass/Vol] 15 mg/dL Normal 7-25 [facility] Comment on above: Performed By: #### 3 0728 #### [facility] [address] [facility] [address] CBC COMPLETE BLOOD COUNTon 0 - Erythrocyte distribution width (RBC) [Ratio] 13.1 % Normal 11.5-15.0 [facility] Comment on above: Performed By: #### 3 0728 #### [facility] [address] [facility] [address], [facility] Hematocrit (Bld) [Volume fraction] 40.7 % Normal 36.0-45.0 [facility] Comment on above: Performed By: #### 3 0728 #### [facility] [address] [facility] [place] [address], [facility] Hemoglobin (Bld) [Mass/Vol] 13.5 g/dL Normal 12.0-15.0 [facility] Comment on above: Performed By: #### 3 0728 #### [facility] [address] [place] [address], [facility] MCH (RBC) [Entitic mass] 33.1 pg High 27.0-33.0 [facility] Comment on above: Performed By: #### 3 0728 #### [facility] [address] [place] [id number], [facility] MCHC (RBC) [Mass/Vol] 33.2 g/dL Normal 32.0-35.0 [facility] Comment on above: Performed By: #### 3 0728 #### [facility] [address] [place] [address], [facility] MCV (RBC) [Entitic vol] 99.8 fL High 82.0-98.0 [facility] Comment on above: Performed By: #### 3 0728 #### [facility] [address] Nucleated RBC/100 WBC (Bld) [Ratio] 0 % Normal 0-0 [facility] Comment on above: Performed By: #### 3 0728 #### [facility] [address] [place] [address], [facility] PLAT CNT 266 10*3/uL Normal 150-400 [facility] Comment on above: Performed By: #### 3 0728 #### [facility] [address] [place] [address], [facility] RBC (Bld) [#/Vol] 4.08 10*6/uL Normal 3.80-5.00 [facility] Comment on above: Performed By: #### 3 0728 #### [facility] [address] [place] [address], [facility] WBC (Bld) [#/Vol] 4.37 10*3/uL Normal 4.00-10.60 [facility] Comment on above: Performed By: #### 3 0728 #### [facility] [address] PROTHROMBIN TIMEon 2 INR Coag (PPP) [Relative time] 0.96 {INR} Normal 0.91-1.16 [facility] Comment on above: Result Comment: ACCC P RECOMMENDED INR FOR WARFARIN THERAPY --------- ------- CONDITION INR PROPHYLAXIS OF VENOUS THROMBOSIS 2-3 (HIGH-RISK SURGERY) TREATMENT OF VENOUS THROMBOSIS 2-3 TREATMENT OF PULMONARY EMBOLISM 2-3 PREVENTION OF SYSTEMIC EMBOLISM: 2-3 ACUTE MYOCARDIAL INFARCTION TISSUE HEART VALVES VALVULAR HEART DISEASE ATRIAL FIBRILLATION RECURRENT SYSTEMIC EMBOLISM MECHANICAL HEART VALVE 2.5-3.5 FROM: ORAL ANTICOAGULANTS. MECHANISM OF ACTION, CLINICAL EFFECTIVENESS, AND OPTIMAL THERAPEUTIC RANGE. CHEST 1995;108:231S-246S. Performed By: #### 3 1791 #### [facility] [address] PT Coag (PPP) [Time] 12.8 s Normal 12.3-14.8 [facility] Comment on above: Result Comment: ALL RESULTS MUST BE INTERPRETED WITH RESPECT TO BLOOD DRAWING ARTIFACT OR DILUTION ERROR OF ANTICOAGULANT AT THE TIME OF SAMPLING. Performed By: #### 3 1791 #### [facility] [address] TYPE AND CROSSMATCHon 2021 ABO INTERPRETATION A Normal [facility] Comment on above: Order Comment: 2 uni ts Performed By: #### 3 1791 #### [facility] [address] RH INTERPRETATION Positive Normal [facility] Comment on above: Order Comment: 2 uni ts Performed By: #### 3 1791 #### [facility] [address] Coding Summary.on 01-07-2022 Coding Summary. [id number] Gh0bW w+PGhlYWQ+TI6BQSHdB51xpCL vgE1QR8yWFZ5KDADIZVMIQJ7O SR3gmLD0IIazD3QbgbHm BrwobSGmUC75HPj5WXW2jWipP TqofQ5ryPKwH2r9JtUqVP46pT 35UQxjNIGhDaK5WvVlovnmxKK y R5jcToXvdPNlFep+PHRhYmxlI HdpZHRoPScxMDAlJyBzdHlsZT 5jGo3kGYZdCXXmhHucqOKjQjC j j9bvUICuSHfoUL4opLngL7Dcv FW4OFMiw7f9Ro70uGU+PHRkIH C7hAmyBAxxa263QoHow2naMRB 3 hZPgLXecKLU6B96cp9Y9MHSmV YJwHDY0wSH9wT9gbYbxwhgxG4 OcvVWgCaG2CBP1hVKisP9esXk n frvvqC3xJlm+X10QPM7EBJVSB O6ZLae9T2YhAgtreYY+PC90YW VoXT91tARjeQMsf2wwwUs3ShO w ZWKvTNT0fNmuRLcct9VrDZOtK 76saZSmc1U6CCSqqSwbsDQlMe IbpMK3bW0vCXejdajsl0zgujt n Utgvl6jkkn11eT63C78yAUzdY CKcBJG8TLKdVMPkxNbaii9nrO 9wIi8+MUodq9qbh9opoCw3HhI w JWYbbiBufEyiQFU7x3GeKk18Q 3QisJhdc3RzMfj0ma89jRHjv3 Z1uNI3XDmyVNAzuR3fZZolIwP 6 GNCrSkVjjD14sXWxHYouSu3zc NcreLheWZ1wPQZsbarrVKCzuT 3uSKWcbHZiaPwvCF6iDLEbhgm m k235UeZvPSJ8BAPzsHXuF5Ysy J8pIyOgOVTuTDRvG7SkpKFsOV neX787KHxvTdS6JYEndxRyB6T s NAKzsRsuJbA3e8R0Vs5Wk2Ytf edoATV9KOsfDSBkCaPmNvXaFo S3H6RwTht5OSPefIfwRC5sK1O h KEEwldlpzubaaEJ6MFQwHVVee N01fVDlDUwhOc9ck9W8g097WS WvZXUytD01Xh5xgGqaMCRhiAB U fP3ksigiz8vgpvyzVzIlUBPmQ Jm4EGd4YTJnbLxzFtKxAGA4Fl M6NGM5nCKnwD2sfGabnxpcjF7 w Oyc+K47xqE8wXGG4PDD1fxqeW OBdgoUgLA61AI50C9TeFepanZ FibGU+IMGnkhFwiLatLW2wXfU j n8jbd4EbPLshH0KsDBOeOPueR eu5QIRjBVJ1jTX8cN7vTXTkRU dma3O7jDP5F6RpxiQcbm5pz7k s MPNaIJrmG00csYLoe4B6DQTen EW5LERugYjgUhSlqB35Pcf+PG MrjBmmx7VaOzdws4nli1okxUf 9 KeGuEPNufpZgfPimWHG3p0UlO e54B16wXUbbEVFmRNMzTXAvFT TzhEptpu8jiH2jAh3+PGNvbCB 3 hTO7hG3dPPGxUdX8MVsbS020M yFgcEOtVbqyx4uwr6xwxWi8Kf BmZNKcktFbpJhcBXM7d7DgWk1 8 Z85nOGwzIXVlRZXhQWQoTSZjv Ugkne5deK3qIz1+NJ8wb5wtpp 30zW18fBQ+ZDOvQRY6kCewPEd w RYWsxU8tXSprGmC1RPHtUrHee B54oGGcRUleQf5pdIzutTicML 3yWPXsbytwf460BtHiy2goBGW w eTKiPXpvAAE0P60lv7X9IGHwP BZuHZD6jNF6bG4spNxvrjoqaK WjtMbmijSzyHqxRLpiKQxlX21 6 IHRvcDsnPlBhdGllbnQgTmFtZ Hx9E8HcLki6OFHccHllPB8ztD QeUJcbRh8kbHwbhHugJY7dDNJ p hgeeg418KyIbh8wmKBVjtAUyB LayJKN5Q44lp4J0ADBqEFPzSP J6wPY0iL5hjHrfynykcUWupUl g gzUkiQxdJPymNYgaR224UWQvs SpcCbBtxlBgTKXcrDL1OD93OO 75tYCct6B9vUS0K2NcTACzkok t gggtnAP8GOWvAIClrZ60Dr7wn TbmQb1nEVJuFKI5FFEoiMSkQ5 ZhmF6bQqQbIEHsFUCjN3AbiFN t ZFvoP156LSlcQuK0QLGnyfTrG 1WiXKAuyOyyRcT4t0M9Ij0XK8 Q0WX09XK67vXEva7T8mWT7D8D h NNPbvvgbcjvhtQQ2BQRmLJUkl E71Za7jiObzJi7dZZCiVCR5GH VioEIbD2VstX3oYyKpPKXrLZS w U7FfhZEpKBzvA053ZWgiSeZ6P EJfihZvE5JiVFCgrCffKiX7z6 Z7Eb3HKUj2XE09TK82xTBhs6O 5 yEE2L0UzPNVnvyuaelyadVB2X BBrZDSueO65Rk8jtRhjGf1vUE FhOID6FTCtkDYdO1WcsZ7aJhU j LERuPVCcE6DcwIMuUErmS976F IdnHdW3IZGielNvO2QiXLUliJ igBmG3e2H7Fc6QHILtEZ80EDJ 5 eAB3JE86MK09P2WiIrlomEPhj +PHRhYmxlIHdpZHRoPScxMD AjFzKmhMbcAA4aNc0gBOVzHRE v aWaanMMuSyBkr5htZDRjZXucW O6irHrfU6QbnBX7OMAvd8l3Ic 01R04bG0WyvKM+YLNthCW3pDM 0 yM0dVnOkCgG6WTsxI274IyXep TMbZnbiu7nza4njiGg9UyO2EN WlqwSmvDktZJZ0h8GkNp56U84 s IHdpZHRoPSIxNSUiIHZhbGlnb v9maD2xSo7+WNNdrGV7iYP2sK 4vUxVzEzG8YKakX738EkUbcOE v Lkgyq9fbk8xrpIp1WaUdDEZdd xGavOygAYN9u4XdTy88J8KqrE ktx0YlYhh1kz58yRVpl7T5qEE 9 N2QqAYKkukxqqPZtiHdiHA6fY ZTghvmlEAPunP1jUMTfH0r4Uo RiGvY2GHzdV0PmlyO7LTLwdNT g OSxxTPG7R98ms1F8CBQfBSTuD YW9tNW4gP9kmUbacwwirTXulO hdnoBxbMbaMZbjOIhgV138IUZ v oJzmTZIhsK7wCBBnrWKpiIjtC U9sPCOehvuaZvEJQKXCECfeWE qWPBuZIORHET56ME29kQXss6D 5 kLM3Q9JqYMMnkvxphxjnfIP9Y YHpJTEqsF18qAOoXDemXo2gs7 A8x578VMBfAVDdlN26Xy6jnIu g UTYrxOXHjB6ujjobs9crbizpV tFvXRCnFUk8EMt8FGAewInaNg UiTRW8BdX7CUY4aUAzxO2qrZe n xvurhZ5yAua+ZMbiUghqQIb2N DwvdGQ+LUVlDSN9bLatNGvcOE OmyF5mKHUvR6i8LlPnGqW1ZVw u V8OrBKXkdiliAd65mI6oGwEeM mQ7DBgbY5QvnbC1AOQmoEYbTU alKUK7B98ch2S7MHFsLSBbHNK 7 oOZ8eN0ujMlopqqywEEzsQowe lGbtLpnTTalCUisT502BEZkhR qbJpdwDCaaGIMoOU28GR86cGH g x8Q2qZY3N5RnHDIqulrcauuux CV5JHTkJICyoQ17sAZiPGmfBg 0fz2Y5h485ZSHrUAHsuV56Ch7 u cJauIHJbnTYXpZ9hukgbv8cdn kpdUaIgNJBaXFp8YAu1LUCiiU xwVxIhTIF4JiC5LUO2kPJbmS0 h fKrdtwajrH2pQxq+RmVtYWxlP Q54RU10qMEjk1L4yXX9Y6XwWC DjeebzxdhesET9ULPmOJFaiJ7 7 yZHbCCvqJv9he1E5h936ZGSfI QBkgM64Uu9tkOysSGMyaCCQeF 4xnqclc8nrlzljAwCrDUQqYRc 0 DTi4ZNDvkEgjMiRaRWB0NpN8F JU2bRDimS0ubNzoshiqfP1oHj c+MbPkdTBvnO3wZC01NS19K2K y PjwvdGFibGU+PHRhYmxlIHdpZ ENaDWqhWQArYkEacJtuVL0pPx 5qZRBvVYJjcMebpLBmViQqg7t s NFNeWEtkTK5jlPpoR2LnyDJ3G RUkj1a7Rz39O00uM7DvdTD+PG DpaMF6wIM6dU1uTfLjQuI7BSm p Y567PsZceKQvJzexj2rgq2rps Zh2NpUcJOOzgkZfiCkmHDU8g8 SyGa72Z36qNMxmOWFpPKZrBEU i EAQqzIkyfh4tmH0tOr0+PGNvb AS7pUO8hR3cMpTmLqR7PWrsB2 85JqPwfIWxJckrX35rK0QkaAM + EGQwVpj4QBNggFejWL4lmZFjM YcuTn9eRXV3UgFeOyQkACpsI5 GjUMFiwlxwlgoioSC7LMPrPJV w kD45Xu8vzSweXj0dFMJgAFC9J FHspNKnH3KpjX8oElCgVDDhIH WnZ7BbfJSmMRxcB715GGvaCiU 7 WBXitzApT1XgIEDejLkiHuT9q 8K9Fx8BrJozyVWcYH8oVpQdTX v9R2FxEcb8DRGccIpbHQ8dkNC k KXskZh7hbCbrlRfsMQ6pZZYai enhz756BbAdj5vmQUEyfKTkEZ vyPET5I16zr9R9XAZbEOIaUTR 7 hVB6pK0dcAchlslasSCzwFivv tEzuNxjJBcqJRytV517IOZomW jtUsMFExr0K3JtXlw3YSWwrQy s ED3upPRlSYzzZw8wlWpwwIokF H3qKFXhyklrk447QpJrr6wbOL DvyNQjAYyeGNU2F63kl2T8OYE w WABlLRQ1wXV9gQ5naGmoybits GVmdDsgdmVydGljYWwtYWxpZ2 12BATwkHmjVs8BAsh5P8EdDgj 0 RCBpoSdkWL1exGUuIIitRf6by EogeGfyJU5mDHYmivqua723Nf Pax0fhYJHhkLSlLEemKYX4G66 s x2T8ABQeUVIjJCD1oDX0oR6fe GlnbjogbGVmdDsgdmVydGljYW mcRCddI477NDBjwCasVqTxzRH y OjwvdGQ+YV82wd45H3QaSqwsO sm0OVWuCTH4tNF0yT0lQYKeCB dys2R2hHI9V4JiwaQxje9se8d s YXBz (more content not included)... Normal [facility] *MRSA/MSSA DNA NASALon 12-14 *MRSA/MSSA DNA NASAL Clinical Report: (D ) Specimen: NASAL SWAB Collected: 12/14/2021 12:51 Status: Final Last Updated: 12/14/2021 21:26 MSSA DNA (Final) Negative MRSA DNA (Final) Negative Normal [facility] Comment on above: Performed By: #### 0 0071 #### [facility] [address] C REACTIVE PROTEINon 022 CRP [Mass/Vol] 2.5 mg/L Normal 0.0-7.0 [facility] Comment on above: Performed By: #### 3 1791 #### [facility] [address] CBC W/DIFFon 12-14-2021 ABS IMM GRANS 0.0 10*3/uL Normal 0.0-0.2 [facility] Comment on above: Performed By: #### 3 0728 #### [facility] [address] ABS NEUTROPHILS 4.1 10*3/uL Normal 1.6-7.6 [facility] Comment on above: Performed By: #### 3 0728 #### [facility] [address] [place] [address], [facility] Basophils (Bld) [#/Vol] 0.0 10*3/uL Normal 0.0-0.2 [facility] Comment on above: Performed By: #### 3 0728 #### [facility] [address] [place] [address], [facility] Basophils/100 WBC (Bld) 0.3 % Normal 0.0-1.0 [facility] Comment on above: Performed By: #### 3 0728 #### [facility] [address] [place] [address], [facility] Eosinophils (Bld) [#/Vol] 0.1 10*3/uL Normal 0.0-0.5 [facility] Comment on above: Performed By: #### 3 0728 #### [facility] [address] [facility] [place] [address], [facility] Eosinophils/100 WBC (Bld) 2.4 % Normal 0.0-6.0 [facility] Comment on above: Performed By: #### 3 0728 #### [facility] 3000 [facility]. [address] Erythrocyte distribution width (RBC) [Ratio] 12.6 % Normal 11.5-15.0 [facility] Comment on above: Performed By: #### 3 0728 #### [facility] 3000 [facility]. [address] Hematocrit (Bld) [Volume fraction] 43.0 % Normal 36.0-45.0 [facility] Comment on above: Performed By: #### 3 0728 #### [facility] 3000 [facility] [address] Hemoglobin (Bld) [Mass/Vol] 14.6 g/dL Normal 12.0-15.0 [facility] Comment on above: Performed By: #### 3 0728 #### [facility] 3000 [facility]. [address] IMMATURE GRANS 0.3 % Normal 0.0-1.0 [facility] Comment on above: Performed By: #### 3 0728 #### [facility] [address] [place] [address], [facility] Lymphocytes (Bld) [#/Vol] 1.1 10*3/uL Low 1.2-4.0 [facility] Comment on above: Performed By: #### 3 0728 #### [facility] [address] [place] [address], [facility] Lymphocytes/100 WBC (Bld) 19.5 % Low 20.0-45.0 [facility] Comment on above: Performed By: #### 3 0728 #### [facility] [address] [facility] [place] [address], [facility] MCH (RBC) [Entitic mass] 33.9 pg High 27.0-33.0 [facility] Comment on above: Performed By: #### 3 0728 #### [facility] [address] [facility] [place] [address], [facility] MCHC (RBC) [Mass/Vol] 34.0 g/dL Normal 32.0-35.0 [facility] Comment on above: Performed By: #### 3 0728 #### [facility] [address] [facility] [place] [address], [facility] MCV (RBC) [Entitic vol] 99.8 fL High 82.0-98.0 [facility] Comment on above: Performed By: #### 3 0728 #### [facility] [address] [facility] [place] [address], [facility] Monocytes (Bld) [#/Vol] 0.4 10*3/uL Normal 0.1-1.0 [facility] Comment on above: Performed By: #### 3 0728 #### [facility] [address] [facility] [address], [facility] MONOS 7.5 % Normal 5.0-12.0 [facility] Comment on above: Performed By: #### 3 0728 #### [facility] [address] [place] [address], [facility] Neutrophils/100 WBC (Bld) 70.0 % Normal 40.0-72.0 [facility] Comment on above: Performed By: #### 3 0728 #### [facility] [address] [place] [address], [facility] Nucleated RBC/100 WBC (Bld) [Ratio] 0 % Normal 0-0 [facility] Comment on above: Performed By: #### 3 0728 #### [facility] [address] [place] [id number], [facility] PLAT CNT 224 10*3/uL Normal 150-400 [facility] Comment on above: Performed By: #### 3 0728 #### [facility] [address] [place] [address], [facility] RBC (Bld) [#/Vol] 4.31 10*6/uL Normal 3.80-5.00 [facility] Comment on above: Performed By: #### 3 0728 #### [facility] [address] [facility] [place] [address], [facility] WBC (Bld) [#/Vol] 5.86 10*3/uL Normal 4.00-10.60 [facility] Comment on above: Performed By: #### 3 0728 #### [facility] [address] HEMOGLOBIN A1Con 12-14-2021 Glucose [Moles/Vol] 111 mmol/L Normal [facility] Comment on above: Performed By: #### 3 1791 #### [facility] [address] HbA1c (Bld) [Mass fraction] 5.5 % Normal 4.0-6.0 [facility] Comment on above: Performed By: #### 3 1791 #### [facility] [address] [place] [address], [facility] SEDIMENTATION RATEon 022 SED RATE 9 mm/hr Normal 0-20 [facility] Comment on above: Performed By: #### 3 0728 #### [facility] Office Visit (Cardiology)on 12-13-2021 Follow-up visit Diagnoses/Problems Assessed Essential hypertension (401.9) (I10) Patient Instructions Please bring all medicines, vitamins, and herbal supplements with you when you come to the office. Prescriptions will not be filled unless you are compliant with your follow up appointments or have a follow up appointment scheduled as per instruction of your physician. Refills should be requested at the time of your visit. REVIEWED PER Cesar SANO. Chief Complaint YANI GERARD is being seen for hypertension and BP Check. Patient is in the office for hypertension management. Since I added another 25 mg of losartan her blood pressure is under control. She has had no side effect of the titration Active Problems Problems Essential hypertension (401.9) (I10) Assessed By: Minerva James; Last Assessed: 13 Dec 2021 Current Meds Medication NameInstruction amLODIPine Besylate 10 MG Oral TabletTAKE 1 TABLET DAILY DIRECTED. Clopidogrel Bisulfate 75 MG Oral TabletTake 1 tablet daily Ezetimibe 10 MG Oral TabletTAKE 1 TABLET AT BEDTIME. Isosorbide Mononitrate ER 30 MG Oral Tablet Extended Release 24 HourTAKE 1 TABLET DAILY DIRECTED. Losartan Potassium 25 MG Oral TabletTAKE one TABLET DAILY IN THE EVENING. Losartan Potassium 50 MG Oral TabletTake one tablet daily in the morning Magnesium Oxide 400 MG Oral TabletTAKE 1 TABLET DAILY. Metoprolol Succinate ER 50 MG Oral Tablet Extended Release 24 HourTake 1 tablet daily Ranolazine ER 1000 MG Oral Tablet Extended Release 12 HourTAKE 1 TABLET EVERY 12 HOURS. Repatha SureClick 140 MG/ML Subcutaneous Solution Auto-injectorInject 140mg/1 ml every two weeks Patient did not bring medications list or bottles. Updated verbally with patient. Allergies Medication Sulfa Drugs Hives;; Recorded By: Anna Polk; 08/10/2021 2:57:17 PM atorvastatin Adverse Reaction; Myalgia; Recorded By: Berkley Silveira; 10/26/2021 6:41:57 PM Lipitor TABS Myalgia; Recorded By: Anna Polk; 08/10/2021 2:57:17 PM Statins Myalgia; Recorded By: Anna Polk; 08/10/2021 2:57:17 PM Vitals Vital Signs Recorded: 13Dec2021 02:13PMRecorded: 13Dec2021 02:10PM Fjgioyqk816, RUE, Zcdwnpb843, LUE, Sitting Vayckutnj95, RUE, Isrkpwh07, LUE, Sitting Heart Rate54, L Radial Pulse QualityRegular, L Radial Height5 ft 1.5 in Kbgdfg099 lb BMI Oafemakvuf61.18 kg/m2 BSA Calculated1.71 Tobacco Useb) No Fall Screeninga) No falls within the last year Signatures Electronically signed by : Sushma Chavez R.N.; Dec 13 2021 2:40PM EST (Author) Electronically signed by : Lico Siu MD; Dec 13 2021 5:47PM EST (Author) Normal [facility] Tobacco Screening.on 022 Fall risk assessment a) No falls within the last year ZetrOZStambaugh Socialspiel DO Work Phone: Heart Rate Regular [facility] Work Phone: Tobacco use status CPHS b) No ZetrOZStambaugh Socialspiel DO Work Phone: Laboratory - Chemistry and C hemistry - challengeon 12-09-2021 Cholesterol [Mass/Vol] 183\S\183 Normal 140-200 [facility] Work Phone: Comment on above: Chol less than 200 m g/dl low risk Chol 201-239 mg/dl borderline risk Chol 240 mg/dl and greater high risk Cholesterol in LDL [Mass/Vol] 88\S\88 Normal 0-100 [facility] DO Work Phone: Comment on above: LDL ATP III CLASSIFI CATION LDL less than 100 mg/dL Optimal LDL 100-129 mg/dL Near or above optimal LDL 130-159 mg/dL Borderline high LDL 160-189 mg/dL High LDL greater than 189 mg/dL Very high No Panel Informationon 12-09 62.0\S\62.0 Normal . [facility] DO Work Phone: 8.9\S\8.9 Normal 6.3-10.7 [facility]-Sandu suresh 250 DO Work Phone: 221\S\221 Normal 150-450 [facility] suresh 250 DO Work Phone: 13.2\S\13.2 Normal 11.9-15.3 [facility] suresh 250 DO Work Phone: 34.5\S\34.5 Normal 32.0-35.0 [facility] suresh 250 DO Work Phone: 34.7\S\34.7 above high threshold 24.7-34.3 [facility]u suresh 250 DO Work Phone: 2.5\S\2.5 Normal 1.8-7.7 [facility] suresh 250 DO Work Phone: 0.1\S\0.1 Normal 0.0-0.45 [facility]-Andreeu suresh 250 DO Work Phone: 0.8\S\0.[address] [facility]-Andreeu suresh 250 DO Work Phone: 2.2\S\2.[address] [facility]Sand[facility] suresh 250 DO Work Phone: 9.4\S\9.[address] [facility] suresh 250 DO Work Phone: [phone] 25.6\S\25.[address] [facility] suresh 250 DO Work Phone: 0.0\S\0.0 Normal 0.0-0.2 [facility]-Andreeu suresh 250 DO Work Phone: [phone] Comment on above: PERFORMED BY:[place] [address] [place] [place], [place] [id number] MEDICAL DIRECTORBELLE BONDS M.D. 0.4\S\0.4 Normal 0.0-0.8 [facility] [facility] suresh 250 DO Work Phone: [phone] 1.0\S\1.0 Normal 1.00-4.8 [facility]-VoyageByMeu suresh 250 DO Work Phone: [phone] 100.6\S\100.6 above high threshold 80-100 -[facility]-VoyageByMeu suresh 250 DO Work Phone: [phone] 40.9\S\40.9 Normal 34.0-46.4 [facility]-VoyageByMeu suresh 250 DO Work Phone: [phone] 14.1\S\14.1 Normal 11.8-15.4 [facility]-VoyageByMeu suresh 250 DO Work Phone: [phone] 4.06\S\4.06 Normal 3.60-5.00 [facility]Attero 250 DO Work Phone: [phone] 4.0\S\4.0 Normal 3.8-11.6 [facility] 250 DO Work Phone: [phone] 8.7\S\8.7 Normal 8.2-10.2 [facility]-Evomaily 250 DO Work Phone: [phone] 25.7\S\25.7 Normal 22.0-30.0 [facility] 250 DO Work Phone: [phone] 104\S\104 Normal 95-114 [facility]-VoyageByMeu suresh 250 DO Work Phone: [phone] 3.7\S\3.7 Normal 3.5-5.1 [facility]-VoyageByMeu suresh 250 DO Work Phone: [phone] 140\S\140 Normal 136-146 [facility]-VoyageByMeu suresh 250 DO Work Phone: [phone] > [address] [facility]-VoyageByMeu suresh 250 DO Work Phone: [phone] Comment on above: GFR estimated refere nce range: According to KDOQI guidelines, <60 ml/min/1.73m2 is sufficient to diagnose a patient with chronic kidney disease. 0.70\S\0.70 Normal 0.44-1.03 [facility] Stu prince 250 DO Work Phone: 16\S\16 Normal 9-23 [facility] Stu prince 250 DO Work Phone: 92\S\92 Normal 70-100 [facility] 250 DO Work Phone: Comment on above: Random Glucose Refer ence Range is dependent on time and content of last meal. Glucose of more than 200 mg/dL in a nonstressed, ambulatory subject supports the diagnosis of Diabetes Mellitus. ADA recommended reference range 13\S\13 Normal 10-42 [facility] Stu Soliz DO Work Phone: 14\S\14 Normal 10-60 [facility] suresh Soliz DO Work Phone: 3.2\S\3.2 Normal <5.0 [facility] Work Phone: Comment on above: PERFORMED BY:[place] [address] [address] [place], [place] [id number] MEDICAL DIRECTORBELLE BONDS M.D. 36\S\36 Normal [facility] Sol[facility] DO Work Phone: 183\S\183 above high threshold 35-149 [facility] Work Phone: Comment on above: TRIG ATP III CLASSIF ICATION TRIG less than 150 mg/dL Normal TRIG 150-199 mg/dL Borderline high TRIG 200-500 mg/dL High TRIG greater than 500 mg/dL Very high Standard traceable to the Center for Disease Conrtrol and Prevention (CDC) test method. 58\S\58 Normal 35-85 [facility] Stu Soliz DO Work Phone: Comment on above: HDL CHOL ATP-III CLA SSIFICATION Cardiovascular Risk HDL > or equal to 60 mg/dL LOW HDL < 40 mg/dL HIGH Office Visit (Cardiology)on 12-01-2021 Follow-up visit Diagnoses/Problems Assessed Arteriosclerosis of coronary artery (414.00) (I25.10) Aortic stenosis (424.1) (I35.0) Essential hypertension (401.9) (I10) Hyperlipidemia (272.4) (E78.5) Hypothyroidism (244.9) (E03.9) Pulmonary hypertension (416.8) (I27.20) Statin intolerance (995.27) (Z78.9) Status post coronary angioplasty (V45.82) (Z98.61) LAD February 2019 Overweight with body mass index (BMI) of 28 to 28.9 in adult (278.02,V85.24) (E66.3,Z68.28) Never a smoker Palpitation (785.1) (R00.2) Orders Arteriosclerosis of coronary artery, Essential hypertension Basic Metabolic Panel; Status:Active - Retrospective Authorization; Requested for:01Dec2021; Complete Blood Count; Status:Active - Retrospective Authorization; Requested for:[id number]; Arteriosclerosis of coronary artery, Hyperlipidemia ALT - Alanine Aminotransferase, Serum; Status:Active - Retrospective Authorization; Requested for:01Dec2021; AST; Status:Active - Retrospective Authorization; Requested for:01Dec2021; Lipid Panel; Status:Active - Retrospective Authorization; Requested for:[id number]; Essential hypertension Start: Losartan Potassium 25 MG Oral Tablet; TAKE one TABLET DAILY IN THE EVENING Start: Losartan Potassium 50 MG Oral Tablet; Take one tablet daily in the morning Overweight with body mass index (BMI) of 28 to 28.9 in adult Healthy Weight Tips; Status:Complete - Retrospective Authorization; Done: 01Dec2021 SocHx: Never a smoker Tobacco Use Screening; Status:Complete; Done: 01Dec2021 Follow up in [6 ] months Blood Pressure Follow Up In [2-3 weeks ] Patient Instructions By signing my name below, Anna Fernández Lpn, Scribe, attest that this documentation has been prepared under the direction and in the presence of Dr. Lico Siu MD. All medical record entries made by the Scribe were at my direction and personally dictated by me. I have reviewed the chart and agree that the record accurately reflects my personal performance of the history, physical exam, discussion and plan. Please bring all medicines, vitamins, and herbal supplements with you when you come to the office. Prescriptions will not be filled unless you are compliant with your follow up appointments or have a follow up appointment scheduled as per instruction of your physician. Refills should be requested at the time of your visit. Chief Complaint YANI GERARD is being seen for a 6 month follow-up of. Patient is in the office for follow-up for the problems noted below. Recently she had an event of tachycardia with a heart rate up to 150 bpm lasting for several hours and resolved spontaneously. She is now caring 30-day event monitor to capture arrhythmias with no recurrences. She is noted to be hypertensive in the office today. As well. The patient had also recent nuclear stress test which I reviewed with her and came back normal and reassurance is provided. She was encouraged to stay physically active and continue to follow the medical regimen she is on. She is highly motivated. Apart from hypertension and overweight her physical examination was normal. Assessment/recommendation s: 1?coronary artery disease status post angioplasty of the anterior descending artery with drug-eluting stent in February 2019. Repeat cardiac catheterization since that time found patent stent and subtotal occlusion of the small nondominant right coronary artery unchanged from previously which was felt to be best managed medically. Current medical therapy is effective and well-tolerated, nuclear stress test October 2021 was normal 2?hyperlipidemia, on Repatha which has been well-tolerated, last visit I added Zetia 10 mg daily to bring LDL below 70 no blood work has been done and now it is scheduled. She is statin intolerant 3?overweight. Encouraged weight control with diet and exercise and rehabilitation. 4?hypertension presently not under control, will increase losartan up to 75 mg daily and check her blood pressure in the near future 5?hypothyroidism on replacement therapy managed by PCP 6?statin intolerant on Repatha, And on Zetia 7?mild nonconsequential pulmonary hypertension based on echo March 2021, RVSP 41 mmHg. No specific therapy is needed 8?mild nonconsequential aortic stenosis, peak velocity echo March 2021 229 cm/s. Repeat study in 2 3 years will be needed 9?restless leg syndrome to be managed conservatively 10?intermittent tachycardia with a rate up to 150 bpm lasting for hours of unknown etiology. My fear is atrial fibrillation. She is currently now 30-day event monitor. Past Medical History Problems History of chest pain (V13.89) (Z87.898) Resolved Date: 01 Dec 2021 History of coronary atherosclerosis (V12.59) (Z86.79) Resolved Date: 01 Dec 2021 History of hypertension (V12.59) (Z86.79) Resolved Date: 01 Dec 2021 Current Meds Medication NameInstruction amLODIPine Besylate 10 MG Oral TabletTAKE 1 TABLET DAILY DIRECTED. Clopidogrel Bisulfate 75 MG Oral Tablet (more content not included)... Normal [employer] Tobacco Screening.on 022 Fall risk assessment a) No falls within the last year [facility]u suresh 250 DO Work Phone: Tobacco use status CP b) No [facility] suresh 250 DO Work Phone: HIP RIGHT 1 OR 2 VWS WITH PE LVISon 11-30-2021 HIP RIGHT 1 OR 2 VWS WITH PELVIS [facility] Department of Radiology [address] [place] [phone] Patient Name: YANI GERARD : 1940 Sex: F Age: Race: White Pt. Location: 84 Patient Status: O Ordered Date: 11/30/2021 9:55:00 AM Completed Date: 11/30/2021 09:53 AM Requesting Provider: GUERO MORSE Attending Provider: GUERO MORSE Report Copy To: Signs & Symptoms: T84.84XA Pain due to internal orthopedic prosth dev/grft, init I10 History: Comments: Evaluate Exam: HIP RIGHT 1 OR 2 VWS WITH PELVIS HIP RIGHT 1 OR 2 VWS WITH PELVIS 11/30/2021 9:54 AM CLINICAL INDICATIONS: T84.84XA Pain due to internal orthopedic prosth dev/grft, init I10 TECHNOLOGIST COMMENTS: ortho follow up. right hip replacement december 2020 QUESTION FOR THE RADIOLOGIST: Evaluate PROTOCOL: AP(PA) and Lateral views were obtained. COMPARISON: July 20, 2021 FINDINGS: Stable hip prosthesis hardware unchanged in appearance. Stable bilateral protrusio. IMPRESSION: No acute complication or interval change Electronically signed: Alison Mcdonald. Transcribed by: [email or web address], User Resident: Electronically Signed by: ALISON MCDONALD @ 11/30/2021 12:43 PM Normal [facility] Comment on above: Order Comment: Evalu ate [facility] CARDIAC STRESS/REST INJE CTIONon 11-24-[address] [facility] CARDIAC STRESS/REST INJECTION Patient Name: YANI GERARD STUDY: MYOCARDIAL PERFUSION STRESS TEST WITH LEXISCAN Performing facility: [facility], [address] [place] [address], [address], [address] Provider: Lico Siu MD, [facility] PCP: Dr. Kyle Amin Supervising provider: Karla Gordillo MD INDICATION: ASCVD Chest Pain; HISTORY: Gender: F; Age: 81 y/o ; Height: 157.48 cm; Weight: 68.6006748 kg. CAD; High Cholesterol; HTN; Chest Pain; Denies smoking. Cardiac catheterization on 2018. PTCA on 2018. COMPARISON: Previous nuclear testing completed [id number] at [facility]. ACCESSION NUMBER(S): [id number]; [id number]; [id number] ORDERING CLINICIAN: LICO SIU TECHNIQUE: ONE DAY protocol. Stress injection: Date:12-25-21, 33.9 mCi of Myoview IV 20 seconds after rapid injection of Lexiscan. Rest injection: Date: 12-25-21, 10.9 mCi of Myoview IV at rest. The patient had a rapid injection of 0.4 mg of Lexiscan IV over 10 seconds. Imaging was performed by gated tomographic technique. Reason for Lexiscan: dizziness/unsteady/fall risk STRESS TEST DATA: Resting heart rate was 53 BPM. Resting blood pressure was 134/70 mmHg. Peak blood pressure was 138/68 mmHg. Peak heart rate was 75 BPM. TEST TERMINATED DUE TO: Protocol completed FINDINGS: STRESS TEST RESULTS: Resting electrocardiogram revealed normal sinus rhythm without ST-T changes. There were none diagnostic ST-T changes. Rare PVCs were seen The patient did not have chest pains/symptoms during procedure. There was a normal recovery phase. IMAGING RESULTS: Image quality was good. Rest and stress tomographic images were reviewed and revealed normal perfusion without evidence of ischemia, myocardial infarction, or left ventricular dilatation with stress. Overall left ventricular systolic function appeared to be normal without regional wall motion abnormalities. Ejection fraction was 75%. TID is 1.04 and is normal. There was not evidence of attenuation artifact. IMPRESSION: Normal Lexiscan Myoview cardiac perfusion stress test. No evidence of ischemia or myocardial infarction by perfusion imaging. Normal left ventricular systolic function, ejection fraction 75%. No change from prior study. Electronically signed by: KARLA GORDILLO MD Normal [facility] No Panel Informationon 11-24 Normal -[facility] [address] DO Work Phone: Cardiovasc Arrhythmia Result son 11-15-2021 Cardiovasc Arrhythmia Results Reason For Visit Event Monitor: YANI is here for the application of a 30 day event monitor in office., Diagnosis: CP/Palps Ordering Physician: Dr. Lico Siu MD Enrollment sent to: [employer] Monitor number [id number] applied. Printed and placed on Dr. Lico Siu MD desk for dictation. Procedure Patient was monitored between November 15, 2021 and December 15, 2021 for 30 days. 6 rhythm strip were sent for review. This included the baseline. The baseline rhythm demonstrated marked sinus bradycardia with a heart rate of 38 bpm. Subsequent rhythm strips also demonstrated evidence of significant sinus bradycardia with PACs and PVCs and a heart rate between 35 bpm and 67 bpm. The longest pause noted was 3.1 seconds. The only reported symptomatic event was chest pain on 12/12/2021 the corresponding rhythm strip showed sinus bradycardia with a heart rate of 51 bpm Conclusion: Abnormal 30-day event monitor demonstrated episode of marked sinus bradycardia with a heart rate as low as 35 bpm with occasional junctional rhythm. At 38 bpm. Pauses as long as 3.1 seconds were noted but were not symptomatic. The patient's only symptomatic event of chest pain correlated with sinus bradycardia heart rate 51 bpm Future Appointments Date/TimeProviderSpecialt ySite 05/31/2022 10:40 Lico Arzate, [id number] [facility] [address] DO Signatures Electronically signed by : Lico Siu MD; Dec 22 2021 7:23PM EST (Author) Normal [employer] Coding Summary.on 11-05-2021 Coding Summary. CD:[id number] Gh0bW w+PGhlYWQ+EL2ITNFzF35ueDW ggG4CD5dWNA1AJYAKAVSDEA1Q PC0owYX4CCgiS5GnjwIu BvqdlPOuBE57GBm5EQB0lWsdA EyfbT1ufWMmB6q8XgVnSM99bM 12TOqsXVRoHdG0BvWjncfffVH y T2lnVpKbdZAkJbv+PHRhYmxlI HdpZHRoPScxMDAlJyBzdHlsZT 5yFx9yLUIiYCPczIlruWDvBkZ j g5lvGPGoZJrzQK0qxVzwX4Prq AE5OSIco2s9Dt75nGT+PHRkIH D2nPcxMHsrp870AsKxw4jbOTD 3 lLZlJJuiTSL6V97tt3W7TAWvY ZApXZR0jAK9vN5xyThmcisqP1 UxxINiLnU0EVI0fOIhmU5pzZk n fqtcnQ7bUhq+O14TON4VBOYIV R8LFpz0C4LzLhzjtSA+PC90YW AsGA25iVSswCLfm8tmyIk4GdC w RKAeBAA6dZvjCIkoo8GiJFPeC 30orGTfz4M2FXBtaCzpdPRiNi SfdBH3iZ2vRVkjscbjf7jwpwe n Eaftz5uedw32nB04S81fZHroL YWzPRB3AQJcIWXvfLbwlm6pkG 9wIi8+GMhhl1qko9fwvIo0CyG w UVOvvzZhaMiyZQJ3c3NeXl87C 6TyfYmoe1ZgEdd7ib43pHTsi7 V0jCM3ERfpCBRehQ3pELecSkI 6 GCMyYoMeqH94vLSpVIhhJa0ac YxexZcqRV6jKAUrasynPQBjkZ 4wJVWwwJJniQvzFL2hKHKrqde m h526MgGpECZ9VVQmlJEyD2Lko U7eJwBhLFQcKWVxI7OyxLZnDH tmD018LEysPqN3AZLukcStO4Q s QRKiiUztBeE0h5W0Zd6St0Fpk lauDUL8GZadAERgUfF8WlKoWq U5V1HrShq1BTRogSwyOZ8aW6N h ODUzmeylugpggVE6YLKcFUYtn M82jXFcOVbyPg6pk5Y3t101MQ JaZGLgjK02Ub6afBzxJHCjvBY U aU9qceror5qsucnnPpIrDEIsN Xq1CGe4HCIndBshLsVvKTX3Il G8PDW8kDEkoW9bqMkilqlqfA7 w Oyc+V42hlH2dVNJ3UOO2ujerC WKxchJmGK12TS23K5KjRkffqH FibGU+CFEwauAfbVgxNL9yZlI j t2boo6WnSRofC3RtAYPlDNgfW rl5WZXqGZU3dJA8nM8oQFFkNW dyo5N6gYX1T3AzfkUkbj1in1g s KQFzDGxqU97uhSDtn2D0CHUqm LI3NGRxjYayVdIxtN15Fzp+PG SayPrja5LdFoqdo4ecv7qdkAu 9 VxHbKIKhhfAjbVxsMJX5g4TxH e90J77mAKuuIKMdPXOfUPXxUE CuyQbuoy7hfE6tUw8+PGNvbCB 3 mXN7tY2xOMCzVeM2OXbmO549J nSszKZcYpqha8dpe7iglQj3Dy AiSLJgwkXdyXcxSUB7a1VeNf4 8 L23hJCtkZWDtORKeRWNaGGFod Uubsg3doT7kNh0+ZU3ba9pcro 02nF99tEX+GVIoENJ2fUzeBYl w PCWmzZ9wIUieLzS2PWMfBvXnn P88gPVpARbzEv0teNahoFsiGE 9jJNXcgdjof898LrAcw7kdQDJ w dXDqQQqvXOH4P53xh3X1EYAaH YNsINJ1rYJ3fZ9nnRbmictlyX BmcErneqXsrAtoVVxaJOnlQ89 6 IHRvcDsnPlBhdGllbnQgTmFtZ Qk6B6ItAeh3HKYiuKlyZO9raW XrCEtqJc7boGkwwCdmCI2sCQO p dknwy352IrWqa2neMYGytJRjZ RboALE9O83ba5M7TYFiXKGkAO T0fBA8tJ5beDrigdlosCEhaUl g bnPwdSdqQMyxROfbQ975LWBiy JmkCcFbfjNsAXYhlDN8HZ38LR 65fSUzl8O5gYV6N4XyKVMpfyg t ghqekEL9KUDtQRFxgQ96Sl5nu MxeId0pKJCdOTG8FAHycXEwL7 LkcO4oWgZqTSWoOVGfP1MxmYJ t JCoiH021MJcoRoM5YVLktiMdA 1WoFEWeqXgwFgB8x9J6Ey0XT7 P3KI97MV34kGJqz8O7nTX6T7U h MCUnpkbyesyiuUR8UYGrBFDax U18Og8qqZhfKg9bUYJsMWS1TD UzcEAuA9LwcZ6mJpJyVTYvODE w Z2YgaABnVXadO086HJidNcO7E HOanvMdF4AiFQMihYilStX4u5 L2Va8OSBd1HU03DM02qFLmy9J 5 jXN2C5PkEEDudgbfaxkkwDU1N TAlMRUiqT04Qg9yiNstZx6eNG WpRYG9CPVdwZTgS1GejD8tKyY j FSRoAFSgJ6YjdYZdZFnuN792M EryStH2PUJcljAqN3BbDSVhcH ijKaE9t0L1Rg1UCRHsPP06BFV 5 iQD4FJ81WQ65N5TiJtqzuPKkr +PHRhYmxlIHdpZHRoPScxMD NdPmWzeEgsJC0xDv1qNGPrPTW v fGuyeQMfCnGzq3weDSMgBIwwX N9koOprX7QhlST7XJYej3g3Wo 94C15pB3CscFB+JQOxeXP1kTZ 0 lU3aBkMqZxQ0JTpiS478LcRyr KJkIrzsu9dbi7ikiUb7RdL2AS JzaoZkuKxrUTF2k9QgHh00I20 s IHdpZHRoPSIxNSUiIHZhbGlnb h7qlZ2bOw7+VDBbsPM3dVB0aV 1rJhRaVbG2LQdoC280SjPeuIC v Tfpyl7aut5ytrZx1XoKpXCJuk gVjoCylVCM0y4YpYc04A5UpkD tgo6GvTsi5iy52tBGie8P5oCL 9 Q5NjWURzbuknwBSnzKuxOD1eE SZcoxopPGBtmN6mYVDcO0h2Fj HqDqJ6ETneH8ThccC8ZATbwAG g BPexVRQ8K63yd7T1LJZpGAEzR KT1eCG9iT1eiNwzajmwpADmwL ixtdMbpOexGMyjBXopY953OYJ v oIeiIVBczR9gACHbxPAmwOhrB I2wHXRyiyamWwJOEJRIAOjdFM eBGEvJGUXEEH26TB81rAKcm8T 5 yYM8K2WvPOZhcynnuunvyIW6H PDbIXUkeN67kQLkYVgwSx8tg5 J6c849IKLvUQOrpP37To5zpTp g KXNkgOSEzL5osmdog8qxqxatN fMsSVPwUTn1RHp2JDLtpEvoVs WpWOQ5NzF2COK7eAHivY5vqHm n iwbhsA1fYyk+SQmcWogfXZe2E DwvdGQ+YCNsVQS8eNoeIKmyWO PqvY6tTESlW6r4SiJmJiC0PQj u W5PmGQWzahkjXr86uU3cTyLcH zD2FVxhZ9LcudQ9UFOfcZDpOH opCQH3I13fc3G3HWZlVZRuNUY 7 iFD3hN8jkYhqiqbbkPMipOqcr xVxqKkdEXxoASkuW979UVCzzT auJftmTJmfOZKkBB64LR76yBR g h3W5cNT8A6XpGNHkjyfffuinw MB5MNJvEBPntF24zBUjPMarCo 8da5K0q160NMPeYQRmcD56We7 u bEdkKRWogYOTuZ3oerzow3udf kdhFzGgGKUiSRa4RAw1BLVrmG qnWvUgNCI9JsG0MFU8zCJinF5 h tWuvabmdlH7wJoo+RmVtYWxlP B34IP35sSUfn6N9bQG7A9LsRB YevwvmyoigjMM7TOShREIasA9 7 uRMyDPtsYz9es8E3f308ZZNrM GMdbF33Vs3dcUmeAJGgnWVNeC 7ekvoji1qrttfzVkGnRYMrVXk 0 IQq7EINbvFhlChAyDMN8NgU3A QC5zONgmZ3psVwaukgauH2fAu c+O1Z1kRZ7oHBppNwhmWV+PC9 0 mq88B7ZkCmzzKvi8KXEhRSI6d AJ4hP6xNFYjLShul9Y6rXR4H9 UtenJrig3mg8soXYOxHAvsA76 s qWQmc8D4ETYshUA7XQYkhTrrE yLrnF80Cvb+GCShqXhob0MbAu dtw0uqq5jaaOr2TpIbORWmgnA s pHxlYTJ3j3JlIs26N59rZYhpJ CZrTXMpQNSxUSDhsUoqsu2veC 9wIi8+BSMdsTE8bRY7pA2yIoS l ZbX6SMotY466MnMyhTFeCpkvn 2kjm9sqaTn5CgNeKYYwqrRgbU wvTMC5u8GeIl03E2AbeEbay4H w Sfz1mx08bMCme5G5iTY6X2IxS NOsiajcqVPpiBxrNM7fNXYlyw ubAJRqfD4hMEAxO7t8DdEvAyP 1 NQdsX7HbjxP5NVFvxTWeEQVpx ETHcW4ednjcu4tuglrpGzApEJ DkULt5FGn9DHNvlKijTcVgFCF 0 JeY5HEU2yZNdaW5wyXnyfmlpy G9wOyc+BEk4j4sjfMFsTH2hpJ F3OK25SB59pVLxe6V3rPN8I9P h OBKslrbssepdlLZ1NTDnGKGty W93Zw6bwHxsIu8cBILjZLV6MA HhmZBrF5TuxV4rNzUtKZLlOBA w B9NbvSVdLYaeL303YExeEkU5I MFgqcRvB1YwLRTugPhlOcH3v1 P3Ci4QYN51IB95MX83qLRuo7X 5 oZG8K7QjORGyqyitwvejxOV6H ATpFPHopP20Ik4daEsmFy3lQZ DrLYV5BOVhvFVvR1LdjC1oQfI j QTWbHAKwZ1KtcZSmOKsmP908U WfzXgT9VTWfdcUfF5NlFWLmxM cyJdY6l6X7Vv6LGu61GC95ZP0 8 aHXlc7P8vEW5J8GlGXHhekxuc efmsXC3HPCgTALxcU15Nx7mnE kiXj7tUUSbYWW1YBIolXExA3S v zZ3qZqEhTWWpUIPiC0HkeFMsU OdyS294EXyxMhZ0UFUotwOjM4 ErTGAzqXtlOxV4n8M7Lz0MUGn l tja1W0ViTdcfgFN+VH40ZLMvW T01zUGzoULgc7arjGn5XsTlUE FxSCF8mUatWQqes9TmKLEhB08 s bGFw (more content not included)... Normal [facility] Coding Summary.on 10-26-2021 Coding Summary. CD:[id number] Gh0bW w+PGhlYWQ+RN3BTDUkM38mhKC jyO9WH1qGYH9NMPBKKFZOZL5N AQ7knFE0TUrkZ8AuktWk QtjfdETrEN90RWf3AIB0rVolR KszpR6xwKRwR4j4OvUsRP02fS 50REokVYGuAgQ6BlNuzgchlGH y S3fbBkLlcSRmKeg+PHRhYmxlI HdpZHRoPScxMDAlJyBzdHlsZT 4qXl0dGOSyOSFnrUuaeXKhPsM j u3ekICPjYAlkDU6vaCgaZ0Wox QG8MTEdx6u4Dg48sHX+PHRkIH E5aAvdSFmzv922JvWce2ptOTR 3 nWNzBBinZJK9E65ug8J2GCKyG HOaAQR5wLU8oS8jvFlkjitdZ9 ZxvSVmOzL2QYX7oITiaN9ovCg n keghxC9uLxq+V50MBI3OXKJSO I3UWpt6X2BnNpthdQI+PC90YW ArKC19dTZjmBCbz8zosRb9KgS w AFGvQII2kJqhGOder7IcWPEvN 97ttYTwp4I8FHBluUxaaMDkLc LnaGN7jM8xHGuvuczhb7sxfwo n Bxqxe1ohtf31qK00M92kUMzvI NEsJCO1RMOiXSYwuJhfge4yiV 9wIi8+USvuk7fwy8revWo0RwA w WTLxnfLhhDuuPYZ4b6UuXh26I 9CqgOffq6ImLkz2sh39uWIsh7 U9bYA5KWjyIOUfuL1qSHoiQoR 6 BZHeOnBmgS36uEIfLElrHm5dj XvgiPsqVT8xBFRrxnrqBQZhxA 9jEDEdxXKbbRcmZG1sQSKnqto m o488PyEbVWC8JOZmmZUiR9Tgv N2bRnMnPBZjBVVzD4LfnHAcJH vgK992AUjkWdY0WIRcpgPiZ4D s WIUyyPzoDlQ3j8Z2Xu7Md3Uzi cpuTBK0LOdlIMHiTfG8QrNsFh Z4E8AhKcn6LGKgaOrnEZ0lZ5S h ZZKqkcpkealwyVQ1SMVoTJOay O83iFXsFKxtPl1eg5Z0z201AM VvEUJitX28Hi3jcXdyJRThiZF U iD6vfnqpd4onlkbbMvYyUNLbD Wk9TXi3PWOfrMkdWxZdFPW4Gc Q1VPK7zRUonV7ijMwltgvabN3 w Oyc+G31hwO6eBNE3GPB9xkmyA GDiubQfZB12MC10H0UfDsjwgZ FibGU+OUYvxgKgvXvlXB5wHwN j p5koq0DtBNodC1StPNKsJMztE as7EGXgVNK0hGV6vZ9aGWVrJX mav2F1bRE9B5LtpgZlnj1xm0h s TQYpTRebR24jzKOcz2G7XBEev RQ9GSAitXttBuRxtM60Zrr+PG XzyOjmw9NoEmxww1fyt9xphCm 9 AoFxMFEzivSlmTiwNHH9h1OqK q86Z06qKSpkRBDhLYYoABWfQJ EkdOtsxa4rlK9gJk1+PGNvbCB 3 vXG4sS6sXIHyNwH4VFwlO305X gRusPEfYnqei1vtv3xwhNe1Ci AhTRJlqaOtnFvpBLO3z3QfIn0 8 B24dDEpoGQZwUUYnQDYfKVBtb Wnalk7qsT3aRm7+DD3yr8bvcn 76gR80cAR+LTDaBRR9rJrlLWn w HRQjqC4vDNixWdB4FQHqBcGmz U15tLWfMLesPb6ujLijeVtsHY 8sJDWxyytbc440UiRoq2laYCI w bKNmFUmwPZH8B07gm0W0ZRXtS USoWMG3aOS1yG3keMjruznwmD FeeHqufkJiiAaxNZwiGKhaO22 6 IHRvcDsnPlBhdGllbnQgTmFtZ Wl2B1QeZse0SAXdxQztOA4gaB CgGBsjVw7ukZdutCpuFQ7lIRV p atfrf708YmXvt1eoQRBsfWTeQ OpiUPE0O03zv2J2MMNlNGXgCD I8pZT2xG6kjTozydqjfDKtoGh g jeUhrDjsJAnwYWvdI684NQQaz LweMnCvxvYkWPCtwOX4BW21AP 17yOXiw3H7yDS5S0FlGBGoswo t nnprbTH2ZFDkBHFkbR17Ia8ye HfnPr8lRSIvPZO6SVQhhPRxH1 XzeX4mNoHfXECjHAIuD6TogZL t ZMplR171GMapBaJ0YIUuluZdC 4UlIOBjaFriJdG9r8W3Fk4HY9 J3DK35RI74kJNam8D9nQO7W1I h HSOqhnrqiycayPX5ADIxQYFtd X60Ef2ceKixAk0oZNYkACN5YX SbvKUpI0HrsE6cAxMzJRVkCDV w D5RvdKWsAKxbK839ACdnImR8N IXhahTpF9BoZJRthBqgOuS0s0 D2Hu1HXMm7YH99SJ62hNJvv6Q 5 rYM1D4ElKGQfwnnzvuitcWY3F MKpCZXnsW51Pl4vvHiyAz6wEY RmZMT2WNExwMAnF2FmmG8aHdU j YNVjGBGdM5UrpAZqYSrlX066C RcwSoF0CKEhscFpF0HnBRTadZ vrIzO9p4J2Ai1INKSnKQ74EFS 5 tFZ7GJ26TZ17J2NrVosnbSJzs +PHRhYmxlIHdpZHRoPScxMD FuBcIspUdyIM2aLi7pBYOfBPL v wKsqvNWwEeJis6lkTXZwXMyrK O3hiDmeT8YxrGR8NHNjj9u1Rz 90A16cZ0BhhSS+VWHbsJU9bUB 0 iU4bZbRoKuV8TIotE043VvQry BLaOtpny2lkp6aedVp9PpM9LM VncqXnzNvoRZY8a4TgXn22M04 s IHdpZHRoPSIxNSUiIHZhbGlnb h0jsU8tZn2+ZQHwlJW5oAM3fI 4lVtIuCwX1GWmmS796MoLmgTD v Anhrt6itr5eyoBg9VcXwSWPgy eUtyJvbHQR8p8IrMy55Q5TnhX amx3KvBco0ov46oBRlo5A0bMY 9 F7PtLZStcomyxQIhdZiuZR8eC UCqhbwbNPSupD6lUUPbX3c1Kf EnZoI2NLocP6LvmsA7WKVneBG g MIaeZGO2P27ug2L8PQKaDKSjW QJ5sBY6nA3lkRtrsxjfaNVdrT jkwxVnvFncJOenFJhkL694PRE v xSviMYOjqZ6mXOYkjZWslTspW Y6xBVUxbjztAtNBSKGZXKjvCR yRJEfTKCQPCL15IO61qFXwu4G 5 vFH4R5NbVFBdynabxbeffII8V OZvHFZhwZ07qTYrRYilGh3qi4 T6e712FFDlDUOpkS89Dd5ecNg g UGQjwJORjE4nplknn8bqbvvmU eMsHDQxRBc1XWq6BWJuxBsgDw AsHUG7MeC7MVV4dMKbfL1emLm n duxujT0tTot+TSghRwszIZz7H DwvdGQ+UPMyYUB2iPnlKDxzYZ QbjZ0zFDPeD8x3JhTnNgL1RRb u K6EqTUQzpkcrFa89mR0sVrGxG lH4NBzmY0HxgnB9YJYpiCVlSV bcLIJ2P73fl1T7XQWhHZZmKQI 7 vPI7oZ2amLncthwdcKIwrAazm xAciQsfGJuzSYiaZ237VMPvyD qlWzjeRBiaVTDjTT80AQ71lLA g n6U5bNO7H2ZoDJBqbqjtzljti WW3IHAsIISueE57fWPlGBcnFj 5ln7V9x406JIFhJWGopQ66Nn6 u qBseFHVtpKNLtK0fdspbh6wwl sazMhFmKVSzESr0FRd4EAMjgV sgSlJvHLM2AtH8MTF8rNQyuA4 h fZruphtxoL4mSjx+RmVtYWxlP M57LD89zDEde6A0rUD9E4MoSW NcojcvxxhvfTV5FRSqBQTbpB5 7 kFZpSGqnBj6pq1I9a450BPQaJ QPswN44Ay5adHpjZZZzaPZYeL 4bmgkuf2kplgscIeCyQTXqCDs 0 BMa4PXOpmSkaVoIwFXK7KqI5O TO0uWEfxK2jnVcxciqhzH4qTv c+O3Q8kGF4xUKsdEfynTQ+PC9 0 zg06S1MeWdnhHnj3IZZxSDA6v UZ1bY7sKJBhVTzro4B2oQH7S7 TysdKqop7gg3olXASkJDteA77 s oDZud8Q4QSDwcGS0WULbzCzkK aFdxO82Yvu+APTliYkzu7TkSh udp3ymx0pelRb3WbNcEKBbwqC s nDpmHPS4p9FdNk61B33eHNjrL RNuRDAfQOWnAAHxiGkezg0fuK 9wIi8+RKZujZW6pDK8xH2oSwD l MsU3YTvaG627MuVxlERkFovas 5jec4rliSs3TwOoFQOncjUpfB gvRUC2v7OoBs61N4WcvTqpq8K w Jnz5jh59tYTnu1N8sJO8Y7IwZ SXqcgpveLFawNmwFI0zFHHyhl zgQSSvuZ6hHEPkC4e2PmLoKaG 1 RJxqO3GrugS0QZWfaAMyDDMxr ASTkP9orfuuu7vbytkdKfOfJR QmEPz5SJa5GOObvOxuPuJtPRI 0 KdR0CQJ8rGUtqR3mwPaxtivcg G9wOyc+WBs3t3aslJQiDV0nfH V9LH35YT21vJBqu9D2qYH6S7I h DANgaiwoyfekoOL4HBXkDOSlu B12Yd0eiXlpPy1nWVRqOQH5MD CelJPsT9GriX3qWlSlTVGpCVX w F8WsuLIgUSioZ875NYtuJrF9T QOlojTgY3JlGFEvtWhjUoZ8k4 R6Rr9PUO58XC27RU72yVYic4W 5 mTL2W2KnCOZomncbutualAB6Q BYoEVBiuE03Tr9cnQudIo1tKC OyAKD9JQWapNUxK3LdmF0iJdU j MCXaZKZsL1LlkXQbEDxdF466R ZqnMcT0JNKbulWeG6PqQGTrkO hoYpQ7b7R7Sh4AXm37NG15LL3 8 nOYeb6I0oVL4R4GqPQRlptibw gutaII8RCItEQJgfS49Vg3fiU wsUs9fKTHdGIQ0BSWvkWHzX2V v uN0aArLwKEXcNYVsE3KzyBMuE ZfcU039CCpzAeV2LIIbwcPqN3 QfPEQsfLsoOmM2i1V8Be4NAKg l lti0T1GjFwehhUV+VH37MQEwS T07fAIliGZxg6gpnUp8MmFmJC AoSAW8oPadFZnco6RnRJNyK26 s bGFw (more content not included)... Normal [facility] Complete Blood Count with Au to Diffon 10-26-2021 Basophils (Bld) [#/Vol] 0.02 10*3/uL Normal 0.00-0.20 [facility] Specialist Comment on above: Performed By: #### F ERR, FE Prof, CMP, CBCAD #### [facility] [address] [place], [place] [id number] Basophils/100 WBC (Bld) 0.3 % Normal [facility] Thermodynamics Professor Comment on above: Performed By: #### F ERR, FE Prof, CMP, CBCAD #### [facility] [address] [place], [place] [id number] Eosinophils (Bld) [#/Vol] 0.16 10*3/uL Normal 0.02-0.50 [facility] Thermodynamics Professor Comment on above: Performed By: #### F ERR, FE Prof, CMP, CBCAD #### [facility] [address] [place], [place] [id number] Eosinophils/100 WBC (Bld) 2.4 % Normal [facility] Thermodynamics Professor Comment on above: Performed By: #### F ERR, FE Prof, CMP, CBCAD #### [facility] [address] [place], [place] [id number] Erythrocyte distribution width (RBC) [Ratio] 13.0 % Normal 11.0-15.0 [facility] Thermodynamics Professor Comment on above: Performed By: #### F ERR, FE Prof, CMP, CBCAD #### [facility] [address] [place], [place] [id number] Hematocrit (Bld) [Volume fraction] 44.4 % Normal 35.0-47.0 [facility] Thermodynamics Professor Comment on above: Performed By: #### F ERR, FE Prof, CMP, CBCAD #### [facility] [address] [place], [place] [id number] Hemoglobin (Bld) [Mass/Vol] 14.6 g/dL Normal 11.6-15.5 [facility] Thermodynamics Professor Comment on above: Performed By: #### F ERR, FE Prof, CMP, CBCAD #### [facility] [address] [place], [place] [id number] Lymphocytes (Bld) [#/Vol] 1.1 10*3/uL Normal 0.9-3.9 [facility] Thermodynamics Professor Comment on above: Performed By: #### F ERR, FE Prof, CMP, CBCAD #### [facility] [address] [place], [place] [id number] Lymphocytes/100 WBC (Bld) 16.6 % Normal [facility] Specialist Comment on above: Performed By: #### F ERR, FE Prof, CMP, CBCAD #### [facility] [address] [place], [place] [id number] MCH (RBC) [Entitic mass] 33.7 pg High 27.0-33.0 [facility] Thermodynamics Professor Comment on above: Performed By: #### F ERR, FE Prof, CMP, CBCAD #### [facility] [address] [facility] [place] [id number] MCHC (RBC) [Mass/Vol] 32.9 g/dL Normal 32.0-36.0 [facility] Comment on above: Performed By: #### F ERR, FE Prof, CMP, CBCAD #### [facility] [address] [facility] [place] [place] [id number] MCV (RBC) [Entitic vol] 103 fL High 80-100 [facility] Specialist Comment on above: Performed By: #### F ERR, FE Prof, CMP, CBCAD #### [facility] [address] [facility] [id number] Monocytes (Bld) [#/Vol] 0.6 10*3/uL Normal 0.2-0.9 [facility] Comment on above: Performed By: #### F ERR, FE Prof, CMP, CBCAD #### [facility] [address] [facility] [place] [place] [phone] Monocytes/100 WBC (Bld) 9.0 % Normal [facility] Comment on above: Performed By: #### F ERR, FE Prof, CMP, CBCAD #### [facility] [address] [facility] [place] [place] [id number] Neutrophils (Bld) [#/Vol] 4.7 10*3/uL Normal 1.5-7.8 [facility] Comment on above: Performed By: #### F ERR, FE Prof, CMP, CBCAD #### [facility] [address] [facility] [place] [id number] Neutrophils/100 WBC (Bld) 71.2 % Normal [facility] Comment on above: Performed By: #### F ERR, FE Prof, CMP, CBCAD #### [facility] [address] [facility] [place] [id number] Platelet mean volume (Bld) [Entitic vol] 11.00 fL Normal 7.50-12.50 [facility] Specialist Comment on above: Performed By: #### F ERR, FE Prof, CMP, CBCAD #### [facility] [address] [facility] [place] [id number] Platelets (Bld) [#/Vol] 273 10*3/uL Normal 140-400 [facility] Specialist Comment on above: Performed By: #### F ERR, FE Prof, CMP, CBCAD #### [facility] [address] [place], [place] [id number] RBC (Bld) [#/Vol] 4.33 10*6/uL Normal 3.90-5.20 [facility] Specialist Comment on above: Performed By: #### F ERR, FE Prof, CMP, CBCAD #### [facility] [address] [place], [place] [id number] RDW-SD 48.8 fL Normal 37.0-50.0 [facility] Specialist Comment on above: Performed By: #### F ERR, FE Prof, CMP, CBCAD #### [facility] [address] [place], [place] [id number] WBC (Bld) [#/Vol] 6.6 10*3/uL Normal 3.8-11.0 [facility] Thermodynamics Professor Comment on above: Performed By: #### F ERR, FE Prof, CMP, CBCAD #### [facility] [address] [place], [place] [id number] Comprehensive Metabolic [facility] 10-26-2021 Albumin [Mass/Vol] 4.5 g/dL Normal 3.6-5.1 [facility] Thermodynamics Professor Comment on above: Performed By: #### F ERR, FE Prof, CMP, CBCAD #### [facility] [address] [place], [place] [id number] Albumin/Globulin [Mass ratio] 2.0 {ratio} Normal 1.0-2.5 [facility] Specialist Comment on above: Performed By: #### F ERR, FE Prof, CMP, CBCAD #### [facility] [address] [place], [place] [id number] ALP [Catalytic activity/Vol] 62 U/L Normal 35-119 [facility] Specialist Comment on above: Performed By: #### F ERR, FE Prof, CMP, CBCAD #### [facility] [address] [place], [place] [id number] ALT [Catalytic activity/Vol] 13 U/L Normal 6-33 [facility] Specialist Comment on above: Result Comment: 12/1 /2021 Female reference range changed. Performed By: #### F ERR, FE Prof, CMP, CBCAD #### [facility] [address] [place], [place] [id number] Anion gap [Moles/Vol] 19 mmol/L Normal 12-20 [facility] Comment on above: Result Comment: Effvel ctive 11/04/2019 reference range changed. Performed By: #### F ERR, FE Prof, CMP, CBCAD #### [facility] [address] [place], [place] [id number] AST [Catalytic activity/Vol] 14 U/L Normal 9-34 [facility] Comment on above: Performed By: #### F ERR, FE Prof, CMP, CBCAD #### [facility] [address] [place], [place] [id number] Bilirubin [Mass/Vol] 0.40 mg/dL Normal 0.30-1.20 [facility] Comment on above: Performed By: #### F ERR, FE Prof, CMP, CBCAD #### [facility] [address] [place], [place] [id number] BUN/CREA 25 Ratio High 6-22 [facility] Comment on above: Performed By: #### F ERR, FE Prof, CMP, CBCAD #### [facility] [address] [place], [place] [id number] Calcium [Mass/Vol] 10.1 mg/dL Normal 8.6-10.2 [facility] Comment on above: Performed By: #### F ERR, FE Prof, CMP, CBCAD #### [facility] [address] [place], [place] [id number] Chloride [Moles/Vol] 102 mmol/L Normal 98-107 [facility] Comment on above: Performed By: #### F ERR, FE Prof, CMP, CBCAD #### [facility] [address] [place], [place] [id number] CO2 [Moles/Vol] 27 mmol/L Normal 20-31 [facility] Comment on above: Performed By: #### F ERR, FE Prof, CMP, CBCAD #### [facility] [address] [place], [place] [id number] Creatinine [Mass/Vol] 0.7 mg/dL Normal 0.6-1.4 [facility] Specialist Comment on above: Performed By: #### F ERR, FE Prof, CMP, CBCAD #### [facility] [address] [place], [place] [id number] eGFRAA 106 mL/min/1.73m2 Normal >60 [facility] Specialist Comment on above: Performed By: #### F ERR, FE Prof, CMP, CBCAD #### [facility] [address] [place], [place] [id number] eGFRNAA 87 mL/min/1.73m2 Normal >60 [facility] Specialist Comment on above: Performed By: #### F ERR, FE Prof, CMP, CBCAD #### [facility] [address] [place], [place] [id number] Globulin (S) [Mass/Vol] 2.2 g/dL Normal 1.9-3.7 [facility] Specialist Comment on above: Performed By: #### F ERR, FE Prof, CMP, CBCAD #### [facility] [address] [place], [place] [id number] Glucose [Mass/Vol] 87 mg/dL Normal 65-99 [facility] Thermodynamics Professor Comment on above: Result Comment: For FASTING Glucose --- ADA reference ranges: Normal 65-99 mg/dl Prediabetes 100-125 Diabetes >/= 126 Performed By: #### F ERR, FE Prof, CMP, CBCAD #### [facility] [address] [place], [place] [id number] Potassium [Moles/Vol] 4.6 mmol/L Normal 3.5-5.5 [facility] Specialist Comment on above: Performed By: #### F ERR, FE Prof, CMP, CBCAD #### [facility] [address] [place], [place] [id number] Protein [Mass/Vol] 6.7 g/dL Normal 6.1-8.1 [facility] Thermodynamics Professor Comment on above: Performed By: #### F ERR, FE Prof, CMP, CBCAD #### [facility] [address] [place], [place] [id number] Sodium [Moles/Vol] 143 mmol/L Normal 135-146 [facility] Comment on above: Performed By: #### F ERR, FE Prof, CMP, CBCAD #### [facility] [address] [place], [place] [id number] Urea nitrogen [Mass/Vol] 17 mg/dL Normal 7-25 [facility] Specialist Comment on above: Performed By: #### F ERR, FE Prof, CMP, CBCAD #### [facility] [address] [place], [place] [id number] Ferritinon 10-26-2021 FERR 49.6 ng/mL Normal 15.0-150.0 [facility] Comment on above: Performed By: #### F ERR, FE Prof, CMP, CBCAD #### [facility] [address] [place], [place] [id number] Iron Profileon 10-26-2021 %FESAT 23 % Normal 11-50 [facility] Comment on above: Performed By: #### F ERR, FE Prof, CMP, CBCAD #### [facility] [address] [place], [place] [id number] FE 84 ug/dL Normal 40-190 [facility] Specialist Comment on above: Result Comment: Refe rence range change 09/15/2017. Prior reference range F 37-145 ug/dL, M 59-158 ug/dL. Performed By: #### F ERR, FE Prof, CMP, CBCAD #### [facility] [address] [place], [place] [id number] TIBC 362 ug/dL Normal 250-450 [facility] Specialist Comment on above: Performed By: #### F ERR, FE Prof, CMP, CBCAD #### [facility] [address] [place], [place] [id number] UIBC 278 ug/dL Normal 112-347 [facility] Specialist Comment on above: Performed By: #### F ERR, FE Prof, CMP, CBCAD #### [facility] [address] [place], [place] [id number] Microalbumin (with Creat)on 10-26-2021 mALB 1.9 mg/dL Normal [facility] Comment on above: Result Comment: mALB reference range not established. Performed By: #### m ALBC #### [facility] [address] [place], [place] [id number] mALB/Creat Ratio 9.4 MCG/MG Normal [facility] Thermodynamics Professor Comment on above: Result Comment: The ADA (Diabetes Care 26:S94-S98, 2003) defines abnormalities in Albumin excretion as follows: Category Result (MCG/MG Creatinine) Normal <30 Microalbuminuria 30-299 Clinical Albuminuria > or = 300 Performed By: #### m ALBC #### [facility] [address] [place], [place] [id number] UCREA 203 mg/dL Normal 28-217 [facility] Thermodynamics Professor Comment on above: Performed By: #### m ALBC #### [facility] [address] [place], [place] [id number] Q - URINALYSIS,COMPLETEon Appearance (U) CLOUDY Abnormal CLEAR [facility] Thermodynamics Professor Comment on above: Order Comment: [facility] performed at: [employer], [employer] [facility], [address] , [address] [place] [address], [address] [place] [address], Territory Sales Consultant: Dao Christensen MD [facility] Collection Date/Time: [facility] Results Received Date/Time: [facility] Reported Date/Time: Performed By: #### 3 4F #### [facility] [address] [place] [address] BACTERIA FEW Abnormal NONE SEEN [facility] Thermodynamics Professor Comment on above: Order Comment: [facility] performed at: [employer] [facility], [address] , [address] [place] [address], [address] [place] [address], Territory Sales Consultant: Dao Christensen MD [facility] Date/Time: [facility] Results Received Date/Time: [facility] Reported Date/Time: Performed By: #### 3 4F #### [facility] [address] [place] [address] Bilirubin Ql (U) Negative Normal NEGATIVE [facility] Thermodynamics Professor Comment on above: Order Comment: [facility] performed at: [employer], [employer] [facility], [address] [facility], [address] [place] [address], [address] [place] [address], Territory Sales Consultant: Dao Christensen MD [facility] Date/Time: [facility] Results Received Date/Time: [facility] Reported Date/Time: Result Comment: Andrew fied by repeat analysis. Performed By: #### 3 4F #### [facility] [address] [place] [address] CALCIUM OXALATE CRYSTALS MANY Abnormal NONE OR FEW [facility] Thermodynamics Professor Comment on above: Order Comment: [facility] performed at: [employer], [employer] [facility], [address] [facility], [address] [place] [address], [address] [place] [address], Territory Sales Consultant: Dao Christensen MD [facility] Date/Time: [facility] Results Received Date/Time: [facility] Reported Date/Time: Performed By: #### 3 4F #### [facility] [address] [place] [address] Color (U) DARK YELLOW Normal YELLOW [facility] Thermodynamics Professor Comment on above: Order Comment: [facility] performed at: [employer], [employer] [facility], [address] [facility], [address] [place] [address], [address] [place] [address], Territory Sales Consultant: Dao Christensen MD [facility] Date/Time: [facility] Results Received Date/Time: [facility] Reported Date/Time: Performed By: #### 3 4F #### [facility] Default [address] [place] [address] COMMENTS MODERATE MUCOUS THREADS Normal [facility] [place] [facility] Professor Comment on above: Order Comment: [facility] performed at: [employer], [employer] [facility], [address] [facility], [address] [place] [address], [address] [place] [address], Territory Sales Consultant: Dao Christensen MD [facility] Date/Time: [facility] Results Received Date/Time: [facility] Reported Date/Time: Performed By: #### 3 4F #### [facility] [address] [place] [address] Glucose Ql (U) Negative Normal NEGATIVE [facility] Thermodynamics Professor Comment on above: Order Comment: [facility] performed at: [facility], [employer] [facility], [address] [place] [address], [address] [place] [address], [address] [place] [address], Territory Sales Consultant: Dao Christensen MD [facility] Date/Time: [facility] Results Received Date/Time: [facility] Reported Date/Time: Performed By: #### 3 4F #### [facility] [address] [place] [address] HYALINE CAST 0-1 Abnormal NONE SEEN [facility] Thermodynamics Professor Comment on above: Order Comment: [facility] performed at: [facility], [employer] [facility], [address] [place] [address], [address] [place] [address], [address] [place] [address], Territory Sales Consultant: Dao Christensen MD [facility] Date/Time: [facility] Results Received Date/Time: [facility] Reported Date/Time: Performed By: #### 3 4F #### [facility] [address] [place] [address] Ketones Ql (U) Negative Normal NEGATIVE [facility] Thermodynamics Professor Comment on above: Order Comment: [facility] performed at: [facility], [employer] [facility], [address] [place] [address], [address] [place] [address], [address] [place] [address], Territory Sales Consultant: Dao Christensen MD [facility] Date/Time: [facility] Results Received Date/Time: [facility] Reported Date/Time: Performed By: #### 3 4F #### [facility] [address] [place] [address] Leukocyte esterase Test strip Ql (U) 1+ Abnormal NEGATIVE [facility] Thermodynamics Professor Comment on above: Order Comment: [facility] performed at: [facility], [employer] [facility], [address] [place] [address], [address] [place] [address], [address] [place] [address], Territory Sales Consultant: Dao Christensen MD [facility] Date/Time: [facility] Results Received Date/Time: [facility] Reported Date/Time: Performed By: #### 3 4F #### [facility] [address] [place] [address] Nitrite Ql (U) Negative Normal NEGATIVE [facility] Thermodynamics Professor Comment on above: Order Comment: [facility] performed at: [facility], [employer] [facility], [address] [place] [address], [address] [place] [address], [address] [place] [address], Territory Sales Consultant: Dao Christensen MD [facility] Date/Time: [facility] Results Received Date/Time: [facility] Reported Date/Time: Performed By: #### 3 4F #### [facility] [address] [place] [address] OCCULT BLOOD Negative Normal NEGATIVE [facility] Specialist Comment on above: Order Comment: [facility] performed at: [facility], [employer] [facility], [address] [place] [address], [address] [place] [address], [address] [place] [address], Territory Sales Consultant: Dao Christensen MD [facility] Date/Time: [facility] Results Received Date/Time: [facility] Reported Date/Time: Performed By: #### 3 4F #### [facility] [address] [place] [address] pH (U) 5.5 [pH] Normal 5.0-8.0 [facility] Thermodynamics Professor Comment on above: Order Comment: [facility] performed at: [facility], [employer] [facility], [address] [place] [address], [address] [place] [address], [address] [place] [address], Territory Sales Consultant: Dao Christensen MD [facility] Date/Time: [facility] Results Received Date/Time: [facility] Reported Date/Time: Performed By: #### 3 4F #### [facility] Default [address] [place] [address] Protein Ql (U) TRACE Abnormal NEGATIVE [facility] Thermodynamics Professor Comment on above: Order Comment: [facility] performed at: [employer], [employer] [facility], [address] [place] [address], [address] [place] [address], [address] [place] [address], Territory Sales Consultant: Dao Christensen MD [facility] Date/Time: [facility] Results Received Date/Time: [facility] Reported Date/Time: Performed By: #### 3 4F #### [facility] [address] [place] [address] RBC 0-2 Normal < OR = 2 [facility] Thermodynamics Professor Comment on above: Order Comment: [facility] performed at: [employer], [employer] [facility], [address] [place] [address], [address] [place] [address], [address] [place] [address], Territory Sales Consultant: Dao Christensen MD [facility] Date/Time: [facility] Results Received Date/Time: [facility] Reported Date/Time: Performed By: #### 3 4F #### [facility] [address] [place] [address] Specific gravity (U) [Rel density] 1.022 Normal 1.001-1.035 [facility] Thermodynamics Professor Comment on above: Order Comment: [facility] performed at: [employer], [employer] [facility], [address] [place] [address], [address] [place] [address], [address] [place] [address], Territory Sales Consultant: Dao Christensen MD [facility] Date/Time: [facility] Results Received Date/Time: [facility] Reported Date/Time: Performed By: #### 3 4F #### [facility] [address] [place] [address] SQUAMOUS EPITHELIAL CELLS 6-10 Abnormal < OR = 5 [facility] Thermodynamics Professor Comment on above: Order Comment: [facility] performed at: [employer], [employer] [facility], [address] [place] [address], [address] [place] [address], [address] [place] [address], Territory Sales Consultant: Dao Christensen MD [facility] Date/Time: [facility] Results Received Date/Time: [facility] Reported Date/Time: Performed By: #### 3 4F #### [facility] [address] [place] [address] WBC 6-10 Abnormal < OR = 5 [facility] Thermodynamics Professor Comment on above: Order Comment: [facility] performed at: [employer], [employer] [facility], [address], [address] [facility] [place], [place], [address], Territory Sales Consultant: Dao Christensen MD [facility] Date/Time: [facility] Results Received Date/Time: [facility] Reported Date/Time: Performed By: #### 3 4F #### [facility] Default [address] [place] [address] Consent for Treatmenton 09-30 Consent for Treatment [id number]:12 7 [facility] Insurance Correspondenceon 12-26-2020 Insurance Correspondence [id number]:1 27 [facility] Oncology Noteon 10-25-2021 Oncology Note Oncology Care Coordi nator Office Visit/Treatment Note Current Patient Status/Reason: Pt in for scheduled clinic visit, with family member. Dr English saw pt. and viewed labs, and explained same to pt. Treatment Plan: labs every 4 months. Follow-Up Appointment Info/Referrals: F/U in 1 year. Resources Offered: Pt voiced no questions or concerns to me when I asked. [facility] Comment on above: Result Comment: Elec tronically Signed By: Iris GUTIERREZ, Anna\.br\Date and Time Signed: 10/25/21 13:51 EST Oncology Progress Noteon Oncology Progress Note Patient: YANI GERARD Age: 81 years Sex: Female : 1940 Associated Diagnoses: None Author: Amador PORTILLO, Aria Crowder History of Present Illness Patient presents with a normal CBC. She is not on iron anymore she ran out. We will hold her iron and check her lab work every 4 months. I will see her in 1 year. Last saw me in May 2021. He had been on iron about 2 months up to that time with her hemoglobin normalized. EGD and colonoscopy were negative except for Schatzki's ring on EGD. She saw me in consultation April 05, 2021. She presented a week prior to this with anemia and iron deficiency. She started taking rskh-vun-vlqpeee oral twice a day and had good tolerance to this. Review of Systems Constitutional: Negative. Eye: Negative. Ear/Nose/Mouth/Throat: Negative. Respiratory: Negative. Cardiovascular: Negative. Gastrointestinal: Negative. Genitourinary: Negative. Hematology/Lymphatics: Negative. Endocrine: Negative. Immunologic: Negative. Musculoskeletal: Negative. Integumentary: Negative. Neurologic: Negative. Psychiatric: Negative. All other systems are negative Health Status Allergies: Allergic Reactions (Selected) Severity Not Documented Statins- Other. Sulfamethoxazole- No reactions were documented. Current medications: Home Medications (12) Active amlodipine 10 mg, Oral, Daily Fergon 27 mg, Oral, Daily isosorbide mononitrate 30 mg ER Tab 30 mg = 1 tab(s), Oral, qAM levothyroxine 75 mcg (0.075 mg) Tab 75 mcg = 1 tab(s), Oral, Daily losartan 25 mg Tab 25 mg = 1 tab(s), Oral, BID magnesium glycinate 200 mg oral tablet 200 mg = 1 tab(s), Oral, Daily Metoprolol succinate 50 mg ER Tablet 50 mg, Oral, Daily Plavix 75 mg Tab 75 mg = 1 tab(s), Oral, Daily potassium chloride 20 mEq ER Tab 20 mEq = 1 tab(s), Oral, BID pramipexole 0.5 mg 1 tab(s), Oral, TID ranolazine 1000 mg oral tablet, extended release 1,000 mg = 1 tab(s), Oral, BID Repatha SureClick 140 mg/mL subcutaneous solution 140 mg, SubCutaneous, q2wk , No qualifying data available Problem list: All Problems Hypertension / SNOMED CT [id number] / Confirmed Histories Past Medical History: Resolved Myocardial infarction ([id number]): Resolved. Comments: 01/18/2021 EDT 15:36 [facility] - Wendy Veliz PT 10/25/2020 01/18/2021 EDT 15:36 Wendy Cotton PT 3 total Hypertension ([id number]- [id number]): Resolved. Hypothyroidism (99655566): Resolved. Irregular heart beat (778711476): Resolved. Meniscus tear ([id number]): Resolved. Comments: 03/06/2015 EDT 14:53 BHARATI Guerin PT, Sonya Washington left knee Family History: Patient was adopted. Procedure history: Colonoscopy ([id number]) on 05/04/2021 at 80 Years. EGD (esophagogastroduodenosco py) gastric outlet reduction ([id number]) on 05/04/2021 at 80 Years. Hip replacement ([id number]) on 01/04/2021 at 80 Years. Comments: 01/19/2021 7:56 Wendy Cotton PT anterior approach left knee scope on 07/25/2014 at 74 Years. back surgery L4-5 laminectomy 07-10-15. Hand surgery service ([id number]). Hammer toe operation (089755). Social History Social & Psychosocial Habits Tobacco 04/15/2021 Tobacco Use: Never (less than 100 in l Smokeless tobacco use: Never . Physical Examination Vital Signs (last 24 hrs) Last Charted Temp Oral 36.5 DegC (OCT 25:) SBP H 148mmHg (OCT 25:) DBP 76 mmHg (OCT 25:) SpO2 96 % (OCT 25:) Weight 71.8 kg (OCT 25 13:00) Height 156.5 cm (OCT 25 13:00) General: Alert and oriented, No acute distress. Eye: Pupils are equal, round and reactive to light, Extraocular movements are intact, Normal conjunctiva. HENT: Normocephalic, Normal hearing. Neck: Supple, No jugular venous distention, No thyromegaly. Respiratory: Good air exchange. Cardiovascular: Normal rate, Good pulses equal in all extremities, Normal peripheral perfusion. Gastrointestinal: no guarding, no tenderness. Lymphatics: negative. Musculoskeletal Normal range of motion. Normal strength. Normal gait. Neurologic: Alert, Oriented, Normal sensory, Normal motor function, No focal deficits, Cranial Nerves II-XII are grossly intact. Cognition and Speech: Oriented, Speech clear and coherent, Functional cognition intact. Psychiatric: Cooperative, Appropriate mood & affect. Integumentary: Warm, Dry. Review / Management Results review: No qualifying data available . Impression and Plan Diagnosis Iron deficiency anemia (DOE03-KK D50.9, Working, Medical). She is off oral iron. We will check CBC and ferritin every 4 months and see me in 1 year.. Education and Follow-up: Discharge Planning: Aria English CBC. FERRITIN EVERY 4 MONTHS SEE ME IN ONE YEAR. Professional Services CC: DR KYLE AMIN Normal [facility] Auto Diffon 10-21-2021 Basophils/100 WBC (Bld) 0.7 % Normal 0.0-2.0 [facility] Comment on above: Order Comment: Order Added by Discern Expert. Performed By: #### 2 093630, 3859040, 3286405, 2867207 ####[facility] [address] [place] [address] Basophils/Leukocytes Auto (Bld) [Pure # fraction] 0.0 E9/L Normal 0.0-0.2 [facility] Comment on above: Order Comment: Order Added by Discern Expert. Performed By: #### 2 932868, 2671137, 7660538, 2762507 ####[facility] [address] [place] [address] Eosinophils/100 WBC (Bld) 1.3 % Normal 0.0-8.0 [facility] Comment on above: Order Comment: Order Added by Discern Expert. Performed By: #### 2 666570, 1828874, 8916716, 7557919 ####[facility] [address] [place] [address] Eosinophils/Leukocytes Auto (Bld) [Pure # fraction] 0.1 E9/L Normal 0.0-0.5 [facility] Comment on above: Order Comment: Order Added by Discern Expert. Performed By: #### 2 062305, 9552413, 8861786, 0776595 ####[address] [place] [address] Lymphocytes/100 WBC (Bld) 19.0 % Normal 14.0-50.0 [facility] Comment on above: Order Comment: Order Added by Discern Expert. Performed By: #### 2 274800, 6868156, 2699637, 3015410 ####[address] [place] [address] Lymphocytes/Leukocytes Auto (Bld) [Pure # fraction] 1.0 E9/L Normal 1.0-4.0 [facility] Comment on above: Order Comment: Order Added by Discern Expert. Performed By: #### 2 193372, 2666608, 3558981, 3979001 ####[address] [address] Monocytes/100 WBC (Bld) 8.1 % Normal 4.0-14.0 [facility] Comment on above: Order Comment: Order Added by Discern Expert. Performed By: #### 2 262454, 9095384, 8398812, 5946142 ####[address] [address] Monocytes/Leukocytes Auto (Bld) [Pure # fraction] 0.4 E9/L Normal 0.2-1.0 [facility] Comment on above: Order Comment: Order Added by Mateus Expert. Performed By: #### 2 932917, 6463507, 9289594, 0982946 ####[address] [address] Neutrophils/100 WBC (Bld) 70.9 % Normal 36.0-75.0 [facility] Comment on above: Order Comment: Order Added by Discern Expert. Performed By: #### 2 714166, 9932438, 2283463, 7247597 ####[address] [address] Neutrophils/Leukocytes Auto (Bld) [Pure # fraction] 3.8 E9/L Normal 2.0-7.5 [facility] Comment on above: Order Comment: Order Added by Discern Expert. Performed By: #### 2 365094, 2422091, 4413981, 2634260 ####[address] [place] [address] CBC w/ Auto Diffon Erythrocyte distribution width (RBC) [Ratio] 13.6 % Normal 10.9-14.2 [facility] Comment on above: Performed By: #### 2 774012, 7740008, 6524081, 5259861 ####[address] [place] [address] Hematocrit (Bld) [Volume fraction] 40.8 % Normal 34.0-46.0 [facility] Comment on above: Performed By: #### 2 059606, 0815971, 5206255, 7085629 ####[address] [place] [address] Hemoglobin (Bld) [Mass/Vol] 14.1 g/dL Normal 12.0-16.0 [facility] Comment on above: Performed By: #### 2 148696, 8791610, 8135673, 3314807 ####[address] [place] [address] MCH (RBC) [Entitic mass] 34.3 pg High 27.0-34.0 [facility] Comment on above: Performed By: #### 2 739710, 1527232, 2707225, 7151131 ####[address] [place] [address] MCHC (RBC) [Mass/Vol] 34.6 g/dL Normal 31.4-36.0 [facility] Comment on above: Performed By: #### 2 134222, 7799665, 9270054, 0635800 ####[address] [place] [address] MCV (RBC) [Entitic vol] 98.9 fL Normal 80.0-100.0 [facility] Comment on above: Performed By: #### 2 611717, 9755463, 4430313, 7469560 ####[facility] [address] [place] [address] Platelet mean volume (Bld) [Entitic vol] 9.1 fL Normal 6.4-10.8 [facility] Comment on above: Performed By: #### 2 860983, 9464754, 6285762, 6193921 ####[facility] [address] [place] [address] Platelets (Bld) [#/Vol] 245.0 E9/L Normal 150.0-500.0 [facility] Comment on above: Performed By: #### 2 026541, 0947375, 6948935, 5161967 ####[facility] [address] [place] [address] RBC (Bld) [#/Vol] 4.1 E12/L Low 4.3-5.9 [facility] Comment on above: Performed By: #### 2 937695, 0958234, 6607802, 0433963 ####[facility] [address] [place] [address] WBC corrected for nucl RBC Auto (Bld) [#/Vol] 5.4 E9/L Normal 4.0-11.0 [facility] Comment on above: Performed By: #### 2 357172, 5009421, 7044801, 0573073 ####[address] [address] Consent for Treatmenton 09-30 Consent for Treatment [id number]:12 7 Normal [facility] Ferritinon 10-21-2021 Ferritin [Mass/Vol] 33 ng/mL Normal 11-307 [facility] Comment on above: Result Comment: NORM ALS MEN <30 YRS 16-132 ng/mL MEN >30 YRS 8-338 ng/mL WOMEN (PREMEN) 6-104 ng/mL WOMEN (POSTMEN) 12-210 ng/mL Performed By: #### 2 085282, 6946819, 8934482, 5973035 ####[facility] [address] [place] [address] Ironon 10-21-2021 Iron [Mass/Vol] 85 microgram/dL Normal 35-153 [address] [facility] Comment on above: Performed By: #### 2 931180, 6519495, 7004004, 3547647 ####[facility] [address] [place] [address] HIP RIGHT 1 OR 2 VWS WITH PE LVISon 07-20-2021 HIP RIGHT 1 OR 2 VWS WITH PELVIS [facility] Department of Radiology [address] [place] [address] Patient Name: YANI GERARD : 1940 Sex: F Age: Race: White Pt. Location: Patient Status: D Ordered Date: 07/20/2021 2:20:00 PM Completed Date: 07/20/2021 02:19 PM Requesting Provider: GUERO MORSE Attending Provider: GUERO MORSE Report Copy To: Signs & Symptoms: Z47.1 Aftercare following joint replacement surgery I10 History: Martha Comments: Evaluate Exam: HIP RIGHT 1 OR 2 VWS WITH PELVIS HIP RIGHT 1 OR 2 VWS WITH PELVIS 07/20/2021 2:19 PM CLINICAL INDICATIONS: Z47.1 Aftercare following joint replacement surgery I10 TECHNOLOGIST COMMENTS: Pt stated follow up after hip surgery in December. QUESTION FOR THE RADIOLOGIST: Evaluate PROTOCOL: AP(PA) and Lateral views were obtained. COMPARISON: 04/13/2021 FINDINGS: No acute fractures. Right hip total arthroplasty with acetabular fixation screws in same position and without evidence of failure but one screw appears to extend beyond the cortex into the pelvic cavity similar to prior study. No soft tissue abnormalities. Degenerative changes of the lower lumbar spine. There is loss of joint space of the left hip with subchondral sclerosis and pincer lesion formation. Bilateral protrusio acetabuli; right more than left similar to prior studies IMPRESSION: * Right hip total arthroplasty with acetabular fixation screws in same position without evidence of hardware failure. * Degenerative change and loss of joint space with pincer lesion formation of the left hip. Approved by:Guzman Covarrubias07/21/2021 8:20 AM. I, Pradip Nichols,have reviewed the image(s) and agree with the findings in this report. Electronically signed: Pradip Nichols. Transcribed by: [email or web address], User Resident: GUZMAN SINGH Electronically Signed by: PRADIP NICHOLS @ 07/21/2021 11:44 AM I personally read this/these film(s) with this resident Normal [facility] Comment on above: Order Comment: Evalu ate HIP RIGHT 1 OR 2 VWS WITH PE LVISon 04-13-2021 HIP RIGHT 1 OR 2 VWS WITH PELVIS [facility] Department of Radiology [address] [place] [id number] Patient Name: YANI GERARD : 1940 Sex: F Age: Race: White Pt. Location: Patient Status: D Ordered Date: 04/13/2021 9:35:00 AM Completed Date: 04/13/2021 09:33 AM Requesting Provider: GUERO MORSE Attending Provider: GUERO MORSE Report Copy To: Signs & Symptoms: Z47.1 Aftercare following joint replacement surgery I10 History: Comments: Evaluate Exam: HIP RIGHT 1 OR 2 VWS WITH PELVIS HIP RIGHT 1 OR 2 VWS WITH PELVIS 04/13/2021 9:33 AM CLINICAL INDICATIONS: Z47.1 Aftercare following joint replacement surgery I10. Pain TECHNOLOGIST COMMENTS: right hip surgery 01/04/21 follow up PROTOCOL: AP(PA) and Lateral views were obtained. COMPARISON: 03/19/2021 IMPRESSION: Right total hip arthroplasty is again appreciated. Securing acetabular screws are appreciated and intact. Hardware appears unchanged in position. No periarticular fracture or healing fracture is noted. No acute complication. Bilateral acetabular protrusio with advanced degenerative changes of the left hip again noted Electronically signed: Alison Watson. Transcribed by: [email or web address], User Resident: Electronically Signed by: ALISON WATSON @ 04/14/2021 08:39 AM Normal [facility] Comment on above: Order Comment: Evalu ate HIP RIGHT 1 OR 2 VWS WITH PE LVISon 03-19-2021 HIP RIGHT 1 OR 2 VWS WITH PELVIS [facility] Department of Radiology [address] [place] [id number] Patient Name: YANI GERARD : 1940 Sex: F Age: Race: White Pt. Location: 84 Patient Status: Ordered Date: 03/19/2021 12:05:00 PM Completed Date: 03/19/2021 12:22 PM Requesting Provider: GUERO MORSE Attending Provider: Report Copy To: Signs & Symptoms: Z47.1 Aftercare following joint replacement surgery I10 History: [place] Comments: Evaluate Exam: HIP RIGHT 1 OR 2 VWS WITH PELVIS HIP RIGHT 1 OR 2 VWS WITH PELVIS 03/19/2021 12:22 PM CLINICAL INDICATIONS: Z47.1 Aftercare following joint replacement surgery I10 TECHNOLOGIST COMMENTS: Patient states mild inguinal area pain denies any known recent trauma Right JULIANNA x 01/04/2021 ortho follow up QUESTION FOR THE RADIOLOGIST: Evaluate PROTOCOL: AP(PA) and Lateral views were obtained. COMPARISON: January 2021. FINDINGS: Osteopenia. Pelvic tilt. Scoliosis convex to the left with degenerative disease at the L4-5 level and asymmetrical involvement of the L5-S1 level. Lateral displacement L4 on L5 stable. Advanced remodeling around the right total hip arthroplasty with a deepened acetabular fossa which is stable. Pubic symphysis DJD. Left hip DJD. IMPRESSION: Advanced degenerative changes with remodeling right total hip arthroplasty but no progressive abnormality noted. Chronic changes as described with osteopenia. Electronically signed: Kelly Sumner. Transcribed by: [email or web address], User Resident: Electronically Signed by: KELLY SUMNER @ 03/19/2021 03:18 PM Normal [facility] Comment on above: Order Comment: Evalu ate CBCon 10-29-2020 Erythrocyte distribution width (RBC) [Ratio] 13.6 % 12.4 - 15.4 % [place] Hematocrit (Bld) [Volume fraction] 40.3 % 36 - 48 % [place] Hemoglobin (Bld) [Mass/Vol] 13.6 g/dL 12 - 16 g/dL [place] MCH (RBC) [Entitic mass] 33.7 pg 26 - 34 pg [place] MCHC (RBC) [Mass/Vol] 33.8 g/dL 31 - 36 g/dL [place] MCV (RBC) [Entitic vol] 99.8 fL 80 - 100 fL [place] Platelet mean volume (Bld) [Entitic vol] 9.5 fL 5 - 10.5 fL [place] Platelets (Bld) [#/Vol] 214 10*3/uL 135 - 450 K/uL [facility], [place] RBC (Bld) [#/Vol] 4.04 10*6/uL [place] WBC (Bld) [#/Vol] 4.2 10*3/uL 4 - 11 K/uL [place] Performed at: [facility] [address] [place] [address] [place] EKG 12 Leadon 10-29-2020 Atrial Rate 58 BPM [place] Diagnosis Sinus bradycardia Poor data quality, interpretation may be adversely affectedOtherwise normal ECG suspectedWhen compared with ECG of 28-OCT-2020 07:06, (unconfirmed)No significant change was foundConfirmed by SAY SALGADO MD ([id number]) on 10/29/2020 5:05:33 PM [facility], [place] P [place] 78 degrees [facility], [place] P-R Interval 156 ms [place] Q-T Interval 480 ms [place] QRS Duration 86 ms [place] QTc Calculation (Bazett) 471 ms [place] R [place] 43 degrees [facility], [place] T [place] 56 degrees [facility], [place] Ventricular Rate 58 BPM [facility], [place] Atrial Rate 63 BPM [place] Diagnosis Normal sinus rhythm* Poor data quality, interpretation may be adversely affectedWhen compared with ECG of 27-OCT-2020 17:05, (unconfirmed)Sinus rhythm returnedVent. rate has increased BY 29 BPMConfirmed by SAY SALGADO MD ([id number]) on 10/29/2020 5:04:29 PM [facility] [place] 16 degrees [facility] [place] P-[place] Interval 146 ms [facility] [place] Q-T Interval 454 ms [facility] [place] QRS Duration 76 ms [facility] [place] QTc Calculation ([place]azett) 464 ms [facility] [place] R [place] 55 degrees [facility] [place] 64 degrees [facility] [place] Ventricular Rate 63 BPM [facility] [place] Atrial Rate 26 BPM [facility] [place] Diagnosis Poor data qualit y, interpretation may be adversely affectedprobably sinus bradycardia then junctionalconsistent with vagal episodeAbnormal ECGNo previous ECGs availableConfirmed by SAY SALGADO MD ([id number]) on 10/29/2020 5:03:01 PM [facility] [place] Q-T Interval 588 ms [facility] [place] QRS Duration 92 ms [facility] [place] QTc Calculation ([place]azett) 441 ms [facility] [place] 48 degrees [facility] [place] 70 degrees [facility] [place] Ventricular Rate 34 BPM [facility] [place] EKG 12 leadon 10-29-2020 Atrial Rate 57 BPM [facility] [place] Diagnosis Sinus bradycardia Poor data quality, interpretation may be adversely affectedOtherwise normal ECG likelyWhen compared with ECG of 27-OCT-2020 21:08, (unconfirmed)No significant change was foundConfirmed by SAY SALGADO MD ([id number]) on 10/29/2020 5:04:55 PM [facility] [place] 27 degrees [facility] [place] P-R Interval 174 ms [facility] [place] Q-T Inter[place] 498 ms [facility] [place] QRS Duration 86 ms [facility] [place] QTc Calculation ([place]azett) 484 ms [facility] [place] 49 degrees [facility] [place] 61 degrees [facility] [place] Ventricular Rate 57 BPM [facility] [place] Urine Reflex to Cultureon Bilirubin Urine Negative Negative [facility] [place] Blood, Urine Negative Negative [facility] [place] Clarity, UA Clear Clear [facility] [place] Color, UA YELLOW Straw/Yellow [place] Glucose, Ur Negative Negative mg/dL [place] Ketones Ql (U) Negative Negative mg/dL [place] Leukocyte esterase Test strip Ql (U) Negative Negative [place] Microscopic Examination Not Indicated [place] Nitrite, Urine Negative Negative [place] pH, UA 6.5 [place] Protein (U) [Mass/Vol] Negative Negat keegan mg/dL [place] Specific [place], UA 1.014 [place] Urine Reflex to Culture Not Indicated [place] Urine Type Cleancatch [place] Comment on above: Urine received in a container without preservatives. Urobilinogen, Urine 0.2 <2.0 E.U./dL [place] Performed at: [facility] [address] [place] [id number] [place] APTTon 10-28-2020 aPTT Coag (Bld) [Time] 122.4 s Critically high [place] Comment on above: Therapeutic range: 4 9.0 - 76.0 sec Effective 09-17-19 9:00am EST Please note reference ranges have changed for PTT Testing. Interpretation and review of laboratory results Abnormal [place] CALL Haji [id number] tel. [phone], unable to contact RN, will retry later unable to contact RN, will retry later, 10/28/2020 05:25, by GÓMEZ Performed at: [facility] [address] [place] [address] [place] Basic Metabolic Panel w/ Ref jodee to MGon 10-28-2020 Anion gap [Moles/Vol] 12 mmol/L [place] Calcium [Mass/Vol] 8.4 mg/dL 8.3 - 10. 6 mg/dL [place] Chloride [Moles/Vol] 106 mmol/L 99 - 11 0 mmol/L [place] CO2 [Moles/Vol] 21 mmol/L 21 - 32 mmol/L [place] Creatinine [Mass/Vol] 0.6 mg/dL 0.6 - 1.2 mg/dL [place] GFR >60 >60 [place] Comment on above: Chronic Kidney Disea se: less than 60 ml/min/1.73 sq.m. Kidney Failure: less than 15 ml/min/1.73 sq.m. Results valid for patients 18 years and older. GFR Non- >60 >60 [place] Comment on above: >60 mL/min/1.73m2 EG FR, calc. for ages 18 and older using the MDRD formula (not corrected for weight), is valid for stable renal function. Glucose [Mass/Vol] 138 mg/dL High 70 - 99 mg/dL [place] Potassium [Moles/Vol] 3.6 mmol/L 3.5 - 5.1 mmol/L [place] Sodium [Moles/Vol] 139 mmol/L 136 - 145 mmol/L [place] Urea nitrogen [Mass/Vol] 16 mg/dL 7 - 20 mg/dL [place] CBCon 10-28-2020 Erythrocyte distribution width (RBC) [Ratio] 13.6 % 12.4 - 15.4 % [place] Hematocrit (Bld) [Volume fraction] 36.6 % 36 - 48 % [place] Hemoglobin (Bld) [Mass/Vol] 12.1 g/dL 12 - 16 g/dL [place] Interpretation and review of laboratory results Abnormal [place] MCH (RBC) [Entitic mass] 33.4 pg 26 - 34 pg [place] MCHC (RBC) [Mass/Vol] 33.1 g/dL 31 - 36 g/dL [place] MCV (RBC) [Entitic vol] 101.0 fL High 80 - 100 fL [place] Platelet mean volume (Bld) [Entitic vol] 9.4 fL 5 - 10.5 fL [place] Platelets (Bld) [#/Vol] 209 10*3/uL 135 - 450 K/uL [place] RBC (Bld) [#/Vol] 3.63 10*6/uL Low [place] WBC (Bld) [#/Vol] 5.1 10*3/uL 4 - 11 K/uL [place] Performed at: [facility] [address] [place] [address] [place] Lipid panel - fastingon 10-01 Cholesterol [Mass/Vol] 159 mg/dL 0 - 1 99 mg/dL [place] Cholesterol in HDL [Mass/Vol] 61 mg/dL High 40 - 60 mg/dL [place] Cholesterol in LDL [Mass/Vol] 73 mg/dL <100 [place] Triglyceride [Mass/Vol] 126 mg/dL 0 - 150 mg/dL [place] VLDL Cholesterol Calculated 25 mg/dL Not Established [place] Cardiac Stress Test Nucle ar Imagingon 10-28-2020 Cardiac Perfusion Im aging Demographics Patient Name MOUSTAPHA LOMELI Date of Study 10/28/2020 Gender Female Patient Number [id number] Date of 1940 Visit Number [id number] Age 80 year(s) Accession Number [id number] Room Number 4120 Corporate ID [id number] [place] Enforcement Safety Officer Stevan Roche, CRIMINAL JUSTICE INSTRUCTOR Nurse Justina Miguel RN Interpreting [facility]. Physician Eze Perez MD Ordering Physician Eze Perez MD The procedure was explained in detail to the patient. Risks, complications and alternative treatments were reviewed. Written consent was obtained. Procedure Procedure Type: Nuclear Stress Test:NM MYOCARDIAL SPECT REST EXERCISE OR RX Study location: [facility] Nuclear Medicine Indications: Chest pain. Hospital Status: Inpatient. Height: 62 inches Weight: 155 pounds Risk Factors The patient risk factors include:prior PCI;treated hypertension and prior [place] . Conclusions Summary small size moderate severity fixed anterior wall defect consistent with artifact. NO evidence of ischemia Recommendation Aggressive medical therapy for coronary artery disease. Patient may be discharged. Stress Protocols Resting ECG NSR Resting HR:57 bpm Resting BP:129/66 mmHg Pre-stress physical exam: Complaint of mid back discomfort 3/10; no chest discomfort. Heart and lung sounds unremarkable. O2 saturation 92% on room air. Troponin T 0.02 x 3. To proceed with Lexiscan Myoview stress test. Adult Plus BP cuff used. Stress Protocol:Pharmacologic - Lexiscan's Peak HR:67 bpm HR/BP product:7772 Peak BP:116/56 mmHg Predicted HR: 140 bpm % of predicted HR: 48 Test duration: 1 min and 40 sec Reason for termination:Completed ECG Findings Normal response to lexiscan . Arrhythmias None Symptoms Lexiscan 0.4 mg IV given followed by brief shortness of breath, mild abdominal discomfort, and mild headache. No chest discomfort. Mid back pain unchanged from pretest at level 3/10. O2 saturation 97% on room air. Complications Procedure complication was none. Stress Interpretation Normal EKG response. Procedure Medications - Lexiscan I.V. 0.4 mg.10 sec Imaging Protocols - One Day Rest Stress Isotope:Myoview/Tetrofosm in Isotope: Myoview/Tetrofosmin Isotope dose:10.5 mCi Isotope dose:31.5 mCi Administration Route:I.V. Administration Route:I.V. Date:10/28/2020 00:00 Date:10/28/2020 00:00 Technique: Gated Perfusion Images Rest and Stress: Segments: 1 -Normal 2 -Fixed 3 -Reversible 4 -Partialy reversible 5 -Scar 6 -Defect + +------ ---+--------+----+------- --+---------+ !Segment !Perfusion!Severity!Wall! Artifact !Artreason! + +------ ---+--------+----+------- --+---------+ !APICAL - Anterior!Fixed ! ! ! ! ! + +------ ---+--------+----+------- --+---------+ Imaging Results Study artifacts 1) Breast attenuation Summed scores - Summed stress score: 3 - Summed rest score: 0 - Summed difference score: 3 Stress ejection Ejection fraction:73 % EDV :79 ml ESV :21 ml Stroke volume :58 ml LV mass :111 gr Medical History Additional Medical History Coronary stent x 2 [02/2019], paroxysmal atrial fibrillation with bradycardia [10/27/2020], thyroid disease. Signatures [facility] [place], [place] Es[place], Sw[place] Incoming Cardiovascular Orders From [facility] - 10/28/2020 4:18 PM EST Cardiac Perfusion Imaging Demographics Patient Name MOUSTAPHA LOMELI Date of Study 10/28/2020 Gender Female Patient Number [id number] Date of 1940 Visit Number [id number] Age 80 year(s) Accession Number [id number] Room Number 4120 Corporate ID [id number] [place] Enforcement Safety Officer Stevan Roche, [facility] Nurse Justina Miguel, MATT Interpreting [facility]. Physician Eze Perez MD Ordering Physician Eze Perez MD The procedure was explained in detail to the patient. Risks, complications and alternative treatments were reviewed. Written consent was obtained. Procedure Procedure Type: Nuclear Stress Test:NM MYOCARDIAL SPECT REST EXERCISE OR RX Study location: [facility] Nuclear Medicine Indications: Chest pain. Hospital Status: Inpatient. Height: 62 inches Weight: 155 pounds Risk Factors The patient risk factors include:prior PCI;treated hypertension and prior [place] . Conclusions Summary small size moderate severity fixed anterior wall defect consistent with artifact. NO evidence of ischemia Recommendation Aggressive medical therapy for coronary artery disease. Patient may be discharged. Stress Protocols Resting ECG NSR Resting HR:57 bpm Resting BP:129/66 mmHg Pre-stress physical exam: Complaint of mid back discomfort 3/10; no chest discomfort. Heart and lung sounds unremarkable. O2 saturation 92% on room air. Troponin T 0.02 x 3. To proceed with Lexiscan Myoview stress test. Adult Plus BP cuff used. Stress Protocol:Pharmacologic - Lexiscan's Peak HR:67 bpm HR/BP product:7772 Peak BP:116/56 mmHg Predicted HR: 140 bpm % of predicted HR: 48 Test duration: 1 min and 40 sec Reason for termination:Completed ECG Findings Normal response to lexiscan . Arrhythmias None Symptoms Lexiscan 0.4 mg IV given followed by brief shortness of breath, mild abdominal discomfort, and mild headache. No chest discomfort. Mid back pain unchanged from pretest at level 3/10. O2 saturation 97% on room air. Complications Procedure complication was none. Stress Interpretation Normal EKG response. Procedure Medications - Lexiscan I.V. 0.4 mg.10 sec Imaging Protocols - One Day Rest Stress Isotope:Myoview/Tetrofosm in Isotope: Myoview/Tetrofosmin Isotope dose:10.5 mCi Isotope dose:31.5 mCi Administration Route:I.V. Administration Route:I.V. Date:10/28/2020 00:00 Date:10/28/2020 00:00 Technique: Gated Perfusion Images Rest and Stress: Segments: 1 -Normal 2 -Fixed 3 -Reversible 4 -Partialy reversible 5 -Scar 6 -Defect + +------ ---+--------+----+------- --+---------+ !Segment !Perfusion!Severity!Wall! Artifact !Artreason! + +------ ---+--------+----+------- --+---------+ !APICAL - Anterior!Fixed ! ! ! ! ! + +------ ---+--------+----+------- --+---------+ Imaging Results Study artifacts 1) Breast attenuation Summed scores - Summed stress score: 3 - Summed rest score: 0 - Summed difference score: 3 Stress ejection Ejection fraction:73 % EDV :79 ml ESV :21 ml Stroke volume :58 ml LV mass :111 gr Medical History Additional Medical History Coronary stent x 2 [02/2019], paroxysmal atrial fibrillation with bradycardia [10/27/2020], thyroid disease. Signatures [place] Otheron 10-28-2020 Interpretation and review of laboratory results Abnormal [place] Performed at: [facility] [address] [place] [address] [place] Troponinon 10-28-2020 Interpretation and review of laboratory results Abnormal [place] Troponin I.cardiac [Mass/Vol] 0.02 ng/mL High <0.01 [place] Comment on above: Methodology by Piper Lawrence Performed at: [facility] [address] [place] [address] [place] Interpretation and review of laboratory results Abnormal [place] Troponin I.cardiac [Mass/Vol] 0.02 ng/mL High <0.01 [place] Comment on above: Methodology by Piper Lawrence Performed at: [facility] [address] [facility], [place] [address] [place] APTTon 10-27-2020 aPTT Coag (Bld) [Time] 28.1 s [place] Comment on above: Therapeutic range: 4 9.0 - 76.0 sec Effective 09-17-19 9:00am EST Please note reference ranges have changed for PTT Testing. Basic Metabolic Panel w/ Ref jodee to MGon 10-27-2020 Anion gap [Moles/Vol] 13 mmol/L [place] Calcium [Mass/Vol] 8.5 mg/dL 8.3 - 10. 6 mg/dL [place] Chloride [Moles/Vol] 101 mmol/L 99 - 11 0 mmol/L [place] CO2 [Moles/Vol] 22 mmol/L 21 - 32 mmol/L [place] Creatinine [Mass/Vol] 1 mg/dL 0.6 - 1.2 mg/dL [place] GFR >60 >60 [place] Comment on above: Chronic Kidney Disea se: less than 60 ml/min/1.73 sq.m. Kidney Failure: less than 15 ml/min/1.73 sq.m. Results valid for patients 18 years and older. GFR Non- 53 Abnormal >60 [place] Comment on above: >60 mL/min/1.73m2 EG FR, calc. for ages 18 and older using the MDRD formula (not corrected for weight), is valid for stable renal function. Glucose [Mass/Vol] 134 mg/dL High 70 - 99 mg/dL [place] Potassium [Moles/Vol] 4.1 mmol/L 3.5 - 5.1 mmol/L [place] Sodium [Moles/Vol] 136 mmol/L 136 - 145 mmol/L [place] Urea nitrogen [Mass/Vol] 20 mg/dL 7 - 20 mg/dL [place] Brain Natriuretic Peptideon 10-27-2020 Interpretation and review of laboratory results Abnormal [place] Natriuretic peptide B (Bld) [Mass/Vol] 963 pg/mL High 0 - 449 pg/mL [place] Comment on above: Methodology by NT-pr oBNP An age-independent cutoff point of 300 pg/ml has a 98% negative predictive value excluding acute heart failure. Values exceeding the age-related cutoff values (450 pg/mL if age<50, 900 if 50-75 and 1800 if >75) has 90% sensitivity and 84% specificity for diagnosing acute HF. In patients with renal compromise (eGFR<60) values greater than 1200pg/ml have a diagnostic sensitivity and specificity of 89% and 72% for acute HF. Performed at: [facility] [address] [place] [address] [place] CBC Auto Differentialon 09-30 Basophils (Bld) [#/Vol] 0.0 10*3/uL 0 - 0.2 K/uL [place] Basophils/100 WBC (Bld) 0.7 % [place] Eosinophils (Bld) [#/Vol] 0.2 10*3/uL 0 - 0.6 K/uL [place] Eosinophils/100 WBC (Bld) 2.8 % [place] Erythrocyte distribution width (RBC) [Ratio] 13.9 % 12.4 - 15.4 % [place] Hematocrit (Bld) [Volume fraction] 35.9 % Low 36 - 48 % [place] Hemoglobin (Bld) [Mass/Vol] 12.1 g/dL 12 - 16 g/dL [place] Interpretation and review of laboratory results Abnormal [place] Lymphocytes (Bld) [#/Vol] 1.9 10*3/uL 1 - 5.1 K/uL [place] Lymphocytes/100 WBC (Bld) 30.7 % [place] MCH (RBC) [Entitic mass] 33.8 pg 26 - 34 pg [place] MCHC (RBC) [Mass/Vol] 33.6 g/dL 31 - 36 g/dL [place] MCV (RBC) [Entitic vol] 100.8 fL High 80 - 100 fL [place] Monocytes (Bld) [#/Vol] 0.6 10*3/uL 0 - 1.3 K/uL [place] Monocytes/100 WBC (Bld) 9.8 % [place] Neutrophils Absolute 3.4 K/uL 1.7 - 7 .7 K/uL [place] Neutrophils/100 WBC (Bld) 56.0 % [place] Platelet mean volume (Bld) [Entitic vol] 9.1 fL 5 - 10.5 fL [place] Platelets (Bld) [#/Vol] 265 10*3/uL 135 - 450 K/uL [place] RBC (Bld) [#/Vol] 3.56 10*6/uL Low [place] WBC (Bld) [#/Vol] 6.0 10*3/uL 4 - 11 K/uL [place] Performed at: [facility] [address] [place] [address] [place] COVID-19on 10-27-2020 SARS-CoV-2, NAAT Not Detected Not Detected [place] Comment on above: Rapid NAAT: Negative results should be treated as presumptive and, if inconsistent with clinical signs and symptoms or necessary for patient management, should be tested with an alternative molecular assay. Negative results do not preclude SARS-CoV-2 infection and should not be used as the sole basis for patient management decisions. This test has been authorized by the FDA under an Emergency Use Authorization (EUA) for use by authorized laboratories. Fact sheet for Healthcare Providers: https://www.fda.gov/media/337185/download Fact sheet for Patients: https://www.fda.gov/media/676711/download METHODOLOGY: Isothermal Nucleic Acid Amplification Performed at: [facility] [address] [place] [address] [place] CHEST PULMONARY EMBOLISM W CONTRASTon 10-27-2020 No evidence of pulmo nary embolism or acute pulmonary abnormality. [place], [place] Incoming Radiology Results From [place] - 10/27/2020 7:12 PM EST EXAMINATION: CTA OF THE CHEST 10/27/2020 6:20 pm TECHNIQUE: CTA of the chest was performed after the administration of intravenous contrast. Multiplanar reformatted images are provided for review. MIP images are provided for review. Dose modulation, iterative reconstruction, and/or weight based adjustment of the mA/kV was utilized to reduce the radiation dose to as low as reasonably achievable. COMPARISON: None. HISTORY: ORDERING SYSTEM PROVIDED HISTORY: CP TECHNOLOGIST PROVIDED HISTORY: Reason for exam:->CP Reason for Exam: sob, cp Acuity: Acute Type of Exam: Initial Additional signs and symptoms: Shortness of Breath (chest pain, n/v. onset one hr ago. ctive emesis) FINDINGS: Pulmonary Arteries: Pulmonary arteries are adequately opacified for evaluation. No evidence of intraluminal filling defect to suggest pulmonary embolism. Main pulmonary artery is normal in caliber. Mediastinum: No evidence of mediastinal lymphadenopathy. The heart and pericardium demonstrate no acute abnormality. There is no acute abnormality of the thoracic aorta. Lungs/pleura: The lungs are without acute process. No focal consolidation or pulmonary edema. No evidence of pleural effusion or pneumothorax. Upper Abdomen: Limited images of the upper abdomen are unremarkable. Soft Tissues/Bones: No acute bone or soft tissue abnormality. IMPRESSION: No evidence of pulmonary embolism or acute pulmonary abnormality. [place] EXAMINATION: CTA OF THE CHEST 10/27/2020 6:20 pm TECHNIQUE: CTA of the chest was performed after the administration of intravenous contrast. Multiplanar reformatted images are provided for review. MIP images are provided for review. Dose modulation, iterative reconstruction, and/or weight based adjustment of the mA/kV was utilized to reduce the radiation dose to as low as reasonably achievable. COMPARISON: None. HISTORY: ORDERING SYSTEM PROVIDED HISTORY: CP TECHNOLOGIST PROVIDED HISTORY: Reason for exam:->CP Reason for Exam: sob, cp Acuity: Acute Type of Exam: Initial Additional signs and symptoms: Shortness of Breath (chest pain, n/v. onset one hr ago. ctive emesis) FINDINGS: Pulmonary Arteries: Pulmonary arteries are adequately opacified for evaluation. No evidence of intraluminal filling defect to suggest pulmonary embolism. Main pulmonary artery is normal in caliber. Mediastinum: No evidence of mediastinal lymphadenopathy. The heart and pericardium demonstrate no acute abnormality. There is no acute abnormality of the thoracic aorta. Lungs/pleura: The lungs are without acute process. No focal consolidation or pulmonary edema. No evidence of pleural effusion or pneumothorax. Upper Abdomen: Limited images of the upper abdomen are unremarkable. Soft Tissues/Bones: No acute bone or soft tissue abnormality. [place] HCG Qualitative, Serumon hCG Qual Negative Detects HCG level >10 MIU/mL [place] Performed at: [facility] [address] [place] [id number] [place] Otheron 10-27-2020 Performed at: [facility] [address] [place] [id number] [place] Interpretation and review of laboratory results Abnormal [place] Performed at: [facility] [place] [address] [place] Protime-INRon 10-27-2020 INR Coag (PPP) [Relative time] 0.89 {INR} [place] Comment on above: Effective 09/17/19 a t 09:00am EST Normal: 0.86 - 1.14 Therapeutic: 2.0 - 3.0 Pros. Valve: 2.5 - 3.5 AMI: 2.0 - 3.0 PT Coag (PPP) [Time] 10.3 s [place], [place] Comment on above: Effective 09-17-19 0 9:00am EST Please note reference ranges have changed for PT and INR Testing. Troponinon 10-27-2020 Interpretation and review of laboratory results Abnormal [place] Troponin I.cardiac [Mass/Vol] 0.02 ng/mL High <0.01 [place] Comment on above: Methodology by Piper Lawrence Performed at: [facility] [address] [place] [address] [place] Troponin I.cardiac [Mass/Vol] 0.02 ng/mL High <0.01 [place] Comment on above: Methodology by Tropo stefani T XR CHEST (2 VW)on 10-27-2020 Esvin, Swoh Incoming Radiology Results From [employer] - 10/27/2020 5:39 PM EST EXAMINATION: TWO XRAY VIEWS OF THE CHEST 10/27/2020 5:30 pm COMPARISON: None. HISTORY: ORDERING SYSTEM PROVIDED HISTORY: Chest Pain TECHNOLOGIST PROVIDED HISTORY: Reason for exam:->Chest Pain Reason for Exam: Chest Pain Acuity: Acute Type of Exam: Initial FINDINGS: On the lateral view there is silhouetting of the hemidiaphragms of bilaterally posteriorly. The lungs are otherwise clear. The mediastinum and cardiac silhouette are unremarkable. IMPRESSION: Posterior bibasilar airspace disease may represent atelectasis or pneumonia. [place] Posterior bibasilar airspace disease may represent atelectasis or pneumonia. [place] EXAMINATION: TWO XRA Y VIEWS OF THE CHEST 10/27/2020 5:30 pm COMPARISON: None. HISTORY: ORDERING SYSTEM PROVIDED HISTORY: Chest Pain TECHNOLOGIST PROVIDED HISTORY: Reason for exam:->Chest Pain Reason for Exam: Chest Pain Acuity: Acute Type of Exam: Initial FINDINGS: On the lateral view there is silhouetting of the hemidiaphragms of bilaterally posteriorly. The lungs are otherwise clear. The mediastinum and cardiac silhouette are unremarkable. [place] XR Pelvis and Hip - right AP and Lateral frogon 09-17-2020 IMPRESSION: No acute fracture is identified. 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 There is secondary advanced right hip osteoarthritis and mild left hip osteoarthritis. There is lower lumbar degenerative disc disease. Pigeon Fancier: JALEN Transcribe Date/Time: Sep 17 2020 3:58P Dictated by : KAMLA COREAS MD This examination was interpreted and the report reviewed and electronically signed by: KAMLA COREAS MD on Sep 17 2020 4:01PM EST DIVISION OF RADIOLOGY * * *Final Report* * * DATE OF EXAM: Sep 17 2020 3:53PM [id number] 5352 - XR HIP 3V PELV+ AP/LAT RT / PROCEDURE REASON: Pain * * * * Physician Interpretation * * * * EXAMINATION / TECHNIQUE: XR HIP 3V PELV+ AP/LAT RT HISTORY: rt hip pain chronic Pain COMPARISON: None. RESULT: See impression. DIVISION OF RADIOLOGY Provider, [facility] - 09/17/2020 * * *Final Report* * * DATE OF EXAM: Sep 17 2020 3:53PM [id number] [id number] - XR HIP 3V PELV+ AP/LAT RT / PROCEDURE REASON: Pain * * * * Physician Interpretation * * * * EXAMINATION / TECHNIQUE: XR HIP 3V PELV+ AP/LAT RT HISTORY: rt hip pain chronic Pain COMPARISON: None. RESULT: See impression. IMPRESSION IMPRESSION: No acute fracture is identified. 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 There is secondary advanced right hip osteoarthritis and mild left hip osteoarthritis. There is lower lumbar degenerative disc disease. Pigeon Fancier: PSCB Transcribe Date/Time: Sep 17 2020 3:58P Dictated by : KAMLA COREAS MD This examination was interpreted and the report reviewed and electronically signed by: KAMLA COREAS MD on Sep 17 2020 4:01PM EST [facility] Radiology Study observation (narrative) [facility] XR Pelvis and Hip - right AP and Lateral frogOrdered By: [facility] Provider on 09-17-2020 [facility] Vital Signs Date Time Vital Sign Value Performing Clinician Facility 11-11-2024 14:03-0500 Body height 154.9 cm Joel Wilkerson RENEWABLE ENERGY CONSULTANT Work Phone: [facility] 11-11-2024 14:03-0500 Body mass index (BMI) [Ratio] 29.29 kg/m2 Joel Wilkerson RENEWABLE ENERGY CONSULTANT Work Phone: [facility] 11-11-2024 14:03-0500 Body weight 70.31 kg Joel Wilkerson RENEWABLE ENERGY CONSULTANT Work Phone: [facility] 11-11-2024 14:03-0500 Diastolic blood pressure 62 mm[Hg] Joel Wilkerson RENEWABLE ENERGY CONSULTANT Work Phone: [facility] 11-11-2024 14:03-0500 Heart rate 67 /min Joel Risaliti RENEWABLE ENERGY CONSULTANT Work Phone: [facility] 11-11-2024 14:03-0500 SaO2% (BldA) [Mass fraction] 96 % Joel Risaliti RENEWABLE ENERGY CONSULTANT Work Phone: [facility] 11-11-2024 14:03-0500 Systolic blood pressure 128 mm[Hg] Joel Risaliti RENEWABLE ENERGY CONSULTANT Work Phone: [facility] 11-06-2024 10:42-0500 Body height 154.9 cm Hyacinth Apolinar RENEWABLE ENERGY CONSULTANT Work Phone: [facility] 11-06-2024 10:42-0500 Body mass index (BMI) [Ratio] 29.34 kg/m2 Hyacinth Apolinar RENEWABLE ENERGY CONSULTANT Work Phone: [facility] 11-06-2024 10:42-0500 Body weight 70.44 kg Hyacinth Apolinar RENEWABLE ENERGY CONSULTANT Work Phone: [facility] 11-06-2024 10:42-0500 Diastolic blood pressure 72 mm[Hg] Hyacinth Apolinar RENEWABLE ENERGY CONSULTANT Work Phone: [facility] 11-06-2024 10:42-0500 Heart rate 64 /min Hyacinth Apolinar RENEWABLE ENERGY CONSULTANT Work Phone: [facility] 11-06-2024 10:42-0500 SaO2% (BldA) [Mass fraction] 95 % Hyacinth Apolinar RENEWABLE ENERGY CONSULTANT Work Phone: [facility] 11-06-2024 10:42-0500 Systolic blood pressure 136 mm[Hg] Hyacinth Apolinar RENEWABLE ENERGY CONSULTANT Work Phone: [facility] 09-20-2024 10:27-0500 Body height 154.9 cm Beto Rocha PROGRAM ATTENDANT-BOAT CANVAS MAKER INSTALLER Work Phone: [facility] 09-20-2024 10:27-0500 Body mass index (BMI) [Ratio] 29.29 kg/m2 Beto Rocha PROGRAM ATTENDANT-BOAT CANVAS MAKER INSTALLER Work Phone: [facility] 09-20-2024 10:27-0500 Body weight 70.31 kg Beto Rocha PROGRAM ATTENDANT-BOAT CANVAS MAKER INSTALLER Work Phone: [facility] 09-20-2024 10:27-0500 Diastolic blood pressure 75 mm[Hg] Beto Rocha PROGRAM ATTENDANT-BOAT CANVAS MAKER INSTALLER Work Phone: [facility] 09-20-2024 10:27-0500 Heart rate 61 /min Beto Rocha PROGRAM ATTENDANT-BOAT CANVAS MAKER INSTALLER Work Phone: [facility] 09-20-2024 10:27-0500 Systolic blood pressure 162 mm[Hg] Beto Rocha PROGRAM ATTENDANT-BOAT CANVAS MAKER INSTALLER Work Phone: [facility] 09-02-2024 13:15-0500 Body height 154.9 cm Malvin Pinto MD Work Phone: [facility] 09-02-2024 13:15-0500 Body mass index (BMI) [Ratio] 27.59 kg/m2 Malvin Pinto MD Work Phone: [facility] 09-02-2024 13:15-0500 Body weight 66.22 kg Malvin Pinto MD Work Phone: [facility] 08-28-2024 14:40-0400 Body height 154.9 cm Joel Risaliti RENEWABLE ENERGY CONSULTANT Work Phone: [facility] 08-28-2024 14:40-0400 Body mass index (BMI) [Ratio] 27.59 kg/m2 Joel Risaliti RENEWABLE ENERGY CONSULTANT Work Phone: [facility] 08-28-2024 14:40-0400 Body weight 66.22 kg Joel Risaliti RENEWABLE ENERGY CONSULTANT Work Phone: [facility] 08-28-2024 14:40-0400 Diastolic blood pressure 64 mm[Hg] Joel Risaliti RENEWABLE ENERGY CONSULTANT Work Phone: [facility] 08-28-2024 14:40-0400 Heart rate 73 /min Joel Risaliti RENEWABLE ENERGY CONSULTANT Work Phone: [facility] 08-28-2024 14:40-0400 SaO2% (BldA) [Mass fraction] 95 % Joeldavid Tseti RENEWABLE ENERGY CONSULTANT Work Phone: [facility] 08-28-2024 14:40-0400 Systolic blood pressure 112 mm[Hg] Joel Mcfarlandaliti RENEWABLE ENERGY CONSULTANT Work Phone: [facility] 07-16-2024 15:32-0400 Body mass index (BMI) [Ratio] 31.18 kg/m2 Nadege Garnett RENEWABLE ENERGY CONSULTANT Work Phone: [facility] 07-16-2024 15:32-0400 Body temperature 98.71 [degF] Nadege Garnett RENEWABLE ENERGY CONSULTANT Work Phone: [facility] 07-16-2024 15:32-0400 Body weight 74.84 kg Nadege Garnett RENEWABLE ENERGY CONSULTANT Work Phone: [facility] 07-16-2024 15:32-0400 Diastolic blood pressure 68 mm[Hg] Nadege Garnett RENEWABLE ENERGY CONSULTANT Work Phone: [facility] 07-16-2024 15:32-0400 Heart rate 78 /min Nadege Garnett RENEWABLE ENERGY CONSULTANT Work Phone: [facility] 07-16-2024 15:32-0400 SaO2% (BldA) [Mass fraction] 98 % Nadege Garnett RENEWABLE ENERGY CONSULTANT Work Phone: [facility] 07-16-2024 15:32-0400 Systolic blood pressure 118 mm[Hg] Nadege Garnett RENEWABLE ENERGY CONSULTANT Work Phone: [facility] 06-30-2024 00:00-0400 Diastolic blood pressure 72 mm[Hg] MD Kyle Amin Work Phone: [facility] 06-30-2024 00:00-0400 Heart rate 77 /min MD Kyle Amin Work Phone: [facility] 06-30-2024 00:00-0400 Respiratory rate 16 /min MD Kyle Amin Work Phone: [facility] 06-30-2024 00:00-0400 SaO2% (BldA) [Mass fraction] 95 % MD Kyle Amin Work Phone: [facility] 06-30-2024 00:00-0400 Systolic blood pressure 144 mm[Hg] MD Kyle Amin Work Phone: [facility] 06-29-2024 20:16-0400 Body temperature 98.3 [degF] MD Kyle Amin Work Phone: [facility] 06-29-2024 20:11-0400 Body height 154.94 cm MD Kyle Amin Work Phone: [facility] 06-29-2024 20:11-0400 Body weight 72.9 kg MD Kyle Amin Work Phone: [facility] 06-18-2024 10:15-0400 Body height 154.9 cm John Weathers MD Work Phone: [facility] 06-18-2024 10:15-0400 Body mass index (BMI) [Ratio] 29.33 kg/m2 John Weathers MD Work Phone: [facility] 06-18-2024 10:15-0400 Body temperature 96.4 [degF] John Weathers MD Work Phone: [facility] 06-18-2024 10:15-0400 Body weight 70.4 kg John Weathers MD Work Phone: [facility] 06-18-2024 10:15-0400 Diastolic blood pressure 67 mm[Hg] John Weathers MD Work Phone: [facility] 06-18-2024 10:15-0400 Heart rate 59 /min John Weathers MD Work Phone: [facility] 06-18-2024 10:15-0400 SaO2% (BldA) [Mass fraction] 95 % John Weathers MD Work Phone: [facility] 06-18-2024 10:15-0400 Systolic blood pressure 172 mm[Hg] John Weathers MD Work Phone: [facility] 06-14-2024 10:02-0400 Body height 154.9 cm Beto Rocha PROGRAM ATTENDANT-BOAT CANVAS MAKER INSTALLER Work Phone: [facility] 06-14-2024 10:02-0400 Body mass index (BMI) [Ratio] 29.1 kg/m2 Beto Aj PROGRAM ATTENDANT-BOAT CANVAS MAKER INSTALLER Work Phone: [facility] 06-14-2024 10:02-0400 Body weight 69.85 kg Beto Aj PROGRAM ATTENDANT-BOAT CANVAS MAKER INSTALLER Work Phone: [facility] 06-12-2024 09:39-0400 Body height 154.9 cm Jayden Burks MD Work Phone: [facility] 06-12-2024 09:39-0400 Body mass index (BMI) [Ratio] 29.83 kg/m2 Jayden Burks MD Work Phone: [facility] 06-12-2024 09:39-0400 Body temperature 97.5 [degF] Jayden Burks MD Work Phone: [facility] 06-12-2024 09:39-0400 Body weight 71.6 kg Jayden Burks MD Work Phone: [facility] 06-12-2024 09:39-0400 Diastolic blood pressure 59 mm[Hg] Jayden Burks MD Work Phone: [facility] 06-12-2024 09:39-0400 SaO2% (BldA) [Mass fraction] 96 % Jayden Burks MD Work Phone: [facility] 06-12-2024 09:39-0400 Systolic blood pressure 153 mm[Hg] Jayden Burks MD Work Phone: [facility] 05-29-2024 11:09-0400 Body height 154.9 cm Fiona Harkins MD Work Phone: [facility] 05-29-2024 11:09-0400 Body mass index (BMI) [Ratio] 31.08 kg/m2 Fiona Harkins MD Work Phone: [facility] 05-29-2024 11:09-0400 Body weight 74.6 kg Fiona Harkins MD Work Phone: [facility] 05-29-2024 11:09-0400 Diastolic blood pressure 69 mm[Hg] Fiona Harkins MD Work Phone: [facility] 05-29-2024 11:09-0400 Heart rate 72 /min Fiona Harkins MD Work Phone: [facility] 05-29-2024 11:09-0400 Systolic blood pressure 156 mm[Hg] Fiona Harkins MD Work Phone: [facility] 05-23-2024 08:11-0400 Body height 154.9 cm Elton Pham MD Work Phone: [facility] 05-23-2024 08:11-0400 Body mass index (BMI) [Ratio] 30.23 kg/m2 Elton Pham MD Work Phone: [facility] 05-23-2024 08:11-0400 Body weight 72.58 kg Elton Pham MD Work Phone: [facility] 05-17-2024 11:02-0400 Body height 154.9 cm Megan RAMOSC Work Phone: [facility] 05-17-2024 11:02-0400 Body mass index (BMI) [Ratio] 30.8 kg/m2 Megan EPSTEIN-C Work Phone: [facility] 05-17-2024 11:02-0400 Body weight 73.94 kg Megan EPSTEIN-C Work Phone: [facility] 05-17-2024 11:02-0400 Respiratory rate 12 /min Megan EPSTEIN-C Work Phone: [facility] 04-08-2024 11:33-0400 Body height 154.9 cm Radha Lalak PROGRAM ATTENDANT.BOAT CANVAS MAKER INSTALLER Work Phone: [facility] 04-08-2024 11:33-0400 Body mass index (BMI) [Ratio] 30.83 kg/m2 Radha Lalak PROGRAM ATTENDANT.BOAT CANVAS MAKER INSTALLER Work Phone: [facility] 04-08-2024 11:33-0400 Body weight 74 kg Radha Lalak PROGRAM ATTENDANT.BOAT CANVAS MAKER INSTALLER Work Phone: [facility] 04-08-2024 11:33-0400 Diastolic blood pressure 73 mm[Hg] Radha Lalak PROGRAM ATTENDANT.BOAT CANVAS MAKER INSTALLER Work Phone: [facility] 04-08-2024 11:33-0400 Heart rate 67 /min Radha Lalak PROGRAM ATTENDANT.BOAT CANVAS MAKER INSTALLER Work Phone: [facility] 04-08-2024 11:33-0400 Systolic blood pressure 121 mm[Hg] Radha Lalak PROGRAM ATTENDANT.BOAT CANVAS MAKER INSTALLER Work Phone: [facility] 02-26-2024 10:49-0400 Body height 154.9 cm Jayden Burks MD Work Phone: [facility] 02-26-2024 10:49-0400 Body mass index (BMI) [Ratio] 30.8 kg/m2 Jayden Burks MD Work Phone: [facility] 02-26-2024 10:49-0400 Body weight 73.94 kg Jayden Burks MD Work Phone: [facility] 02-26-2024 10:49-0400 Diastolic blood pressure 74 mm[Hg] Jayden Burks MD Work Phone: [facility] 02-26-2024 10:49-0400 Heart rate 64 /min Jayden Burks MD Work Phone: [facility] 02-26-2024 10:49-0400 Systolic blood pressure 149 mm[Hg] Jayden Burks MD Work Phone: [facility] 02-12-2024 11:20-0400 Body height 154.9 cm Radha Lalak PROGRAM ATTENDANT.BOAT CANVAS MAKER INSTALLER Work Phone: [facility] 02-12-2024 11:20-0400 Body weight 73.94 kg Radha Lalak PROGRAM ATTENDANT.BOAT CANVAS MAKER INSTALLER Work Phone: [facility] 02-12-2024 11:20-0400 Diastolic blood pressure 68 mm[Hg] Radha Lalak PROGRAM ATTENDANT.BOAT CANVAS MAKER INSTALLER Work Phone: [facility] 02-12-2024 11:20-0400 Heart rate 58 /min Radha Lalak PROGRAM ATTENDANT.BOAT CANVAS MAKER INSTALLER Work Phone: [facility] 02-12-2024 11:20-0400 Systolic blood pressure 128 mm[Hg] Radha Lalak PROGRAM ATTENDANT.BOAT CANVAS MAKER INSTALLER Work Phone: [facility] 01-30-2024 10:22-0400 Body height 154.9 cm Nimco Dior DO Work Phone: [facility] 01-30-2024 10:22-0400 Body weight 70.31 kg Nimco Dior DO Work Phone: [facility] 01-30-2024 10:22-0400 Diastolic blood pressure 110 mm[Hg] Nimco Dior DO Work Phone: [facility] 01-30-2024 10:22-0400 Heart rate 60 /min Nimco Dior DO Work Phone: [facility] 01-30-2024 10:22-0400 SaO2% (BldA) [Mass fraction] 94 % Nimco Dior DO Work Phone: [facility] 01-30-2024 10:22-0400 Systolic blood pressure 143 mm[Hg] Nimco Dior DO Work Phone: [facility] 01-18-2024 15:00-0400 Diastolic blood pressure 58 mm[Hg] Alison Klein PT Work Phone: [facility] 01-18-2024 15:00-0400 Heart rate 54 /min Alison Klein PT Work Phone: [facility] 01-18-2024 15:00-0400 SaO2% (BldA) [Mass fraction] 96 % Alison Klein PT Work Phone: [facility] 01-18-2024 15:00-0400 Systolic blood pressure 122 mm[Hg] Alison Alisa PT Work Phone: [facility] 01-09-2024 12:47-0400 Diastolic blood pressure 59 mm[Hg] Nimco Gostkoidaliaki DO Work Phone: [facility] 01-09-2024 12:47-0400 Heart rate 55 /min Nimco Gostkowski DO Work Phone: [facility] 01-09-2024 12:47-0400 SaO2% (BldA) [Mass fraction] 96 % Nimco Gostkoidaliaki DO Work Phone: [facility] 01-09-2024 12:47-0400 Systolic blood pressure 119 mm[Hg] Nimco Gostkoidaliaki DO Work Phone: [facility] 12-12-2023 14:41-0500 Body height 154.9 cm Jayden Burks MD Work Phone: [facility] 12-12-2023 14:41-0500 Body temperature 98.4 [degF] Jayden Burks MD Work Phone: [facility] 12-12-2023 14:41-0500 Body weight 70.31 kg Jayden Burks MD Work Phone: [facility] 12-12-2023 14:41-0500 Diastolic blood pressure 56 mm[Hg] Jayden Burks MD Work Phone: [facility] 12-12-2023 14:41-0500 Heart rate 62 /min Jayden Burks MD Work Phone: [facility] 12-12-2023 14:41-0500 SaO2% (BldA) [Mass fraction] 97 % Jayden Burks MD Work Phone: [facility] 12-12-2023 14:41-0500 Systolic blood pressure 129 mm[Hg] Jayden Burks MD Work Phone: [facility] 12-08-2023 17:00-0500 Diastolic blood pressure 84 mm[Hg] MD Kyle Amin Work Phone: [facility] 12-08-2023 17:00-0500 Heart rate 84 /min MD Kyle Amin Work Phone: [facility] 12-08-2023 17:00-0500 Respiratory rate 20 /min MD Kyle Amin Work Phone: [facility] 12-08-2023 17:00-0500 SaO2% (BldA) [Mass fraction] 100 % MD Kyle Amin Work Phone: [facility] 12-08-2023 17:00-0500 Systolic blood pressure 146 mm[Hg] MD Kyle Amin Work Phone: [facility] 12-08-2023 15:07-0500 Body height 154.94 cm MD Kyle Amin Work Phone: [facility] 12-08-2023 15:07-0500 Body temperature 97.4 [degF] MD Kyle Amin Work Phone: [facility] 12-08-2023 15:07-0500 Body weight 68.94 kg MD Kyle Amin Work Phone: [facility] 12-04-2023 12:00-0500 Body temperature 98 [degF] MD Kyle Amin Work Phone: [facility] 12-04-2023 12:00-0500 Diastolic blood pressure 80 mm[Hg] MD Kyle Amin Work Phone: [facility] 12-04-2023 12:00-0500 Heart rate 52 /min MD Kyle Amin Work Phone: [facility] 12-04-2023 12:00-0500 Respiratory rate 16 /min MD Kyle Amin Work Phone: [facility] 12-04-2023 12:00-0500 SaO2% (BldA) [Mass fraction] 94 % MD Kyle Amin Work Phone: [facility] 12-04-2023 12:00-0500 Systolic blood pressure 146 mm[Hg] MD Kyle Amin Work Phone: [facility] 12-04-2023 04:16-0500 Body weight 72.7 kg MD Kyle Amin Work Phone: [facility] 12-02-2023 12:28-0500 Inhaled oxygen flow rate 1 L/min MD Kyle Amin Work Phone: [facility] 12-01-2023 15:44-0500 Body height 154.94 cm MD Kyle Amin Work Phone: [facility] 11-30-2023 13:30-0500 Diastolic blood pressure 62 mm[Hg] MD Kyle Amin Work Phone: [facility] 11-30-2023 13:30-0500 Heart rate 54 /min MD Kyle Amin Work Phone: [facility] 11-30-2023 13:30-0500 Inhaled oxygen flow rate 1.5 L/min MD Kyle Amin Work Phone: [facility] 11-30-2023 13:30-0500 Respiratory rate 20 /min MD Kyle Amin Work Phone: [facility] 11-30-2023 13:30-0500 SaO2% (BldA) [Mass fraction] 98 % MD Kyle Amin Work Phone: [facility] 11-30-2023 13:30-0500 Systolic blood pressure 120 mm[Hg] MD Kyle Amin Work Phone: [facility] 11-30-2023 10:51-0500 Body height 154.94 cm MD Kyle Amin Work Phone: [facility] 11-30-2023 10:51-0500 Body temperature 97.9 [degF] MD Kyle Amin Work Phone: [facility] 11-30-2023 10:51-0500 Body weight 72.7 kg MD Kyle Amin Work Phone: [facility] 11-16-2023 11:11-0500 Diastolic blood pressure 63 mm[Hg] MD Kyle Amin Work Phone: [facility] 11-16-2023 11:11-0500 Heart rate 51 /min MD Kyle Amin Work Phone: [facility] 11-16-2023 11:11-0500 Respiratory rate 16 /min MD Kyle Amin Work Phone: [facility] 11-16-2023 11:11-0500 SaO2% (BldA) [Mass fraction] 92 % MD Kyle Amin Work Phone: [facility] 11-16-2023 11:11-0500 Systolic blood pressure 103 mm[Hg] MD Kyle Amin Work Phone: [facility] 11-16-2023 08:00-0500 Body temperature 97.7 [degF] MD Kyle Amin Work Phone: [facility] 11-16-2023 06:00-0500 Body weight 71.3 kg MD Kyle Amin Work Phone: [facility] 11-15-2023 12:30-0500 Body height 156.21 cm MD Kyle Amin Work Phone: [facility] 11-15-2023 12:30-0500 Body temperature 97.7 [degF] MD Kyle Amin Work Phone: [facility] 11-15-2023 12:30-0500 Body weight 71.5 kg MD Kyle Amin Work Phone: [facility] 11-15-2023 12:30-0500 Diastolic blood pressure 60 mm[Hg] MD Kyle Amin Work Phone: [facility] 11-15-2023 12:30-0500 Heart rate 63 /min MD Kyle Amin Work Phone: [facility] 11-15-2023 12:30-0500 Respiratory rate 20 /min MD Kyle Amin Work Phone: [facility] 11-15-2023 12:30-0500 Systolic blood pressure 130 mm[Hg] MD Kyle Amin Work Phone: [facility] 11-15-2023 11:45-0500 Inhaled oxygen flow rate 1 L/min MD Kyle Amin Work Phone: [facility] 10-20-2023 17:25-0500 Body temperature 97.9 [degF] MD Kyle Amin Work Phone: [facility] 10-20-2023 17:25-0500 Diastolic blood pressure 65 mm[Hg] MD Kyle Amin Work Phone: [facility] 10-20-2023 17:25-0500 Heart rate 55 /min MD Kyle Amin Work Phone: [facility] 10-20-2023 17:25-0500 Respiratory rate 16 /min MD Kyle Amin Work Phone: [facility] 10-20-2023 17:25-0500 SaO2% (BldA) [Mass fraction] 93 % MD Kyle Amin Work Phone: [facility] 10-20-2023 17:25-0500 Systolic blood pressure 125 mm[Hg] MD Kyle Amin Work Phone: [facility] 10-20-2023 11:00-0500 Body height 157.48 cm MD Kyle Amin Work Phone: [facility] 10-20-2023 08:05-0500 Inhaled oxygen flow rate 2 L/min MD Kyle Amin Work Phone: [facility] 10-20-2023 06:12-0500 Body weight 73.6 kg MD Kyle Amin Work Phone: [facility] 10-19-2023 15:31-0500 Diastolic blood pressure 62 mm[Hg] MD Kyle Amin Work Phone: [facility] 10-19-2023 15:31-0500 Heart rate 54 /min MD Kyle Amin Work Phone: [facility] 10-19-2023 15:31-0500 Inhaled oxygen flow rate 1 L/min MD Kyle Amin Work Phone: [facility] 10-19-2023 15:31-0500 Respiratory rate 18 /min MD Kyle Amin Work Phone: [facility] 10-19-2023 15:31-0500 SaO2% (BldA) [Mass fraction] 95 % MD Kyle Amin Work Phone: [facility] 10-19-2023 15:31-0500 Systolic blood pressure 128 mm[Hg] MD Kyle Amin Work Phone: [facility] 10-19-2023 11:04-0500 Body height 157.48 cm MD Kyle Amin Work Phone: [facility] 10-19-2023 11:04-0500 Body weight 78.2 kg MD Kyle Amin Work Phone: [facility] 10-19-2023 10:58-0500 Body temperature 97.1 [degF] MD Kyle Amin Work Phone: [facility] 06-12-2023 14:45-0400 Body height 157.5 cm Fiona Harkins MD Work Phone: [facility] 06-12-2023 14:45-0400 Body weight 72.58 kg Fiona Harkins MD Work Phone: [facility] 06-12-2023 14:45-0400 Diastolic blood pressure 53 mm[Hg] Fiona Harkins MD Work Phone: [facility] 06-12-2023 14:45-0400 Heart rate 59 /min Fiona Harkins MD Work Phone: [facility] 06-12-2023 14:45-0400 Systolic blood pressure 114 mm[Hg] Fiona Harkins MD Work Phone: [facility] 04-18-2023 15:48-0400 Body height 157.5 cm Jayden Burks MD Work Phone: [facility] 04-18-2023 15:48-0400 Body weight 73.03 kg Jayden Burks MD Work Phone: [facility] 04-18-2023 15:48-0400 Diastolic blood pressure 62 mm[Hg] Jayden Burks MD Work Phone: [facility] 04-18-2023 15:48-0400 Heart rate 63 /min Jayden Burks MD Work Phone: [facility] 04-18-2023 15:48-0400 Systolic blood pressure 137 mm[Hg] Jayden Burks MD Work Phone: [facility] 12-15-2022 11:13-0500 Body height 157.5 cm Fiona Harkins MD Work Phone: [facility] 12-15-2022 11:13-0500 Body weight 74.39 kg Fiona Harkins MD Work Phone: [facility] 12-15-2022 11:13-0500 Diastolic blood pressure 68 mm[Hg] Fiona Harkins MD Work Phone: [facility] 12-15-2022 11:13-0500 Heart rate 63 /min Fiona Harkins MD Work Phone: [facility] 12-15-2022 11:13-0500 SaO2% (BldA) [Mass fraction] 96 % Fiona Harkins MD Work Phone: [facility] 12-15-2022 11:13-0500 Systolic blood pressure 133 mm[Hg] Fiona Harkins MD Work Phone: [facility] 05-20-2022 10:12-0400 Diastolic blood pressure 64 mm[Hg] Research Work Phone: [facility] 05-20-2022 10:12-0400 Heart rate 55 /min Research Work Phone: [facility] 05-20-2022 10:12-0400 Systolic blood pressure 134 mm[Hg] Research Work Phone: [facility] 05-20-2022 10:05-0400 Body weight 69.4 kg Research Work Phone: [facility] 05-20-2022 09:20-0400 Body height 157.5 cm Fiona Harkins MD Work Phone: [facility] 05-20-2022 09:20-0400 Body weight 69.4 kg Fiona Harkins MD Work Phone: [facility] 05-20-2022 09:20-0400 Diastolic blood pressure 58 mm[Hg] Fiona Harkins MD Work Phone: [facility] 05-20-2022 09:20-0400 Heart rate 67 /min Fiona Harkins MD Work Phone: [facility] 05-20-2022 09:20-0400 Systolic blood pressure 138 mm[Hg] Fiona Harkins MD Work Phone: [facility] 04-11-2022 12:08-0400 Body height 154.9 cm Jayden Burks MD Work Phone: [facility] 04-11-2022 12:08-0400 Body temperature 96.3 [degF] Jayden Burks MD Work Phone: [facility] 04-11-2022 12:08-0400 Body weight 66.68 kg Jayden Burks MD Work Phone: [facility] 04-11-2022 12:08-0400 Diastolic blood pressure 118 mm[Hg] Jayden Burks MD Work Phone: [facility] 04-11-2022 12:08-0400 Heart rate 63 /min Jayden Burks MD Work Phone: [facility] 04-11-2022 12:08-0400 SaO2% (BldA) [Mass fraction] 97 % Jayden Burks MD Work Phone: [facility] 04-11-2022 12:08-0400 Systolic blood pressure 149 mm[Hg] Jayden Burks MD Work Phone: [facility] 12-13-2021 14:13-0500 Diastolic blood pressure 62 mm[Hg] Kyle Amin Work Phone: [facility] DO Work Phone: 12-13-2021 14:13-0500 Systolic blood pressure 120 mm[Hg] Kyle Amin Work Phone: [facility] DO Work Phone: 12-13-2021 14:10-0500 Body height 156.21 cm Kyle Rozina Amin Work Phone: [facility] DO Work Phone: 12-13-2021 14:10-0500 Body mass index (BMI) [Ratio] 29.18 kg/m2 Kyle Amin Work Phone: [facility] DO Work Phone: 12-13-2021 14:10-0500 Body surface area Derived from formula 1.71 m2 Kyle Amin Work Phone: [facility] DO Work Phone: 12-13-2021 14:10-0500 Body weight 71.22 kg Kyle Amin Work Phone: [facility] DO Work Phone: 12-13-2021 14:10-0500 Diastolic blood pressure 64 mm[Hg] Kyle Amin Work Phone: [facility] DO Work Phone: 12-13-2021 14:10-0500 Heart rate 54 /min Kyle Amin Work Phone: [facility] DO Work Phone: 12-13-2021 14:10-0500 Systolic blood pressure 126 mm[Hg] Kyle Amin Work Phone: [facility] DO Work Phone: 12-01-2021 10:31-0500 Diastolic blood pressure 80 mm[Hg] Kyle Amin Work Phone: [facility] DO Work Phone: 12-01-2021 10:31-0500 Systolic blood pressure 152 mm[Hg] Kyle Amin Work Phone: [facility] DO Work Phone: 12-01-2021 10:01-0500 Body height 156.21 cm Kyle Amin Work Phone: [facility] DO Work Phone: 12-01-2021 10:01-0500 Body mass index (BMI) [Ratio] 28.81 kg/m2 Kyle Amin Work Phone: [facility] DO Work Phone: 12-01-2021 10:01-0500 Body surface area Derived from formula 1.71 m2 Kyle Amin Work Phone: [facility] DO Work Phone: 12-01-2021 10:01-0500 Body weight 70.31 kg Kyle Amin Work Phone: [facility] DO Work Phone: 12-01-2021 10:01-0500 Diastolic blood pressure 70 mm[Hg] Kyle Amin Work Phone: [facility] DO Work Phone: 12-01-2021 10:01-0500 Heart rate 52 /min Kyle Amin Work Phone: [facility] DO Work Phone: 12-01-2021 10:01-0500 Systolic blood pressure 145 mm[Hg] Kyle Amin Work Phone: [facility] DO Work Phone: 11-24-2021 12:00-0500 75 1 Kyle Amin Work Phone: [facility] DO Work Phone: Comment on above: [id number] 10-29-2020 15:59-0500 BP Diastolic 71 mm[Hg] [facility] [employer] [place] 10-29-2020 15:59-0500 BP Systolic 131 mm[Hg] [facility] [employer] [place], [place] 10-29-2020 15:59-0500 Pulse (Heart Rate) 59 /min [facility] [place] 10-29-2020 10:00-0500 Body Temperature 97.5 [degF] [facility] [employer] [place], [place] 10-29-2020 10:00-0500 Pulse Oximetry 96 % [facility] [employer] [place] 10-29-2020 10:00-0500 Respiratory Rate 18 /min [facility] [employer] [place] 10-29-2020 06:52-0500 BMI (Body Mass Index) 27.82 kg/m2 [facility] [place] 10-29-2020 06:52-0500 Body weight 69 kg [facility] [employer] [place], [place] 10-27-2020 16:57-0500 Height 157.5 cm [facility] [employer] [place] Encounters Encounter Date Encounter Type Care Provider Facility Start: 12-03-2024 End: 12-04-2024 Telephone encounter Fiona Harkins MD Work Phone: Cardiology Comment on above: Patient Question Start: 11-12-2024 End: 11-12-2024 Emergency department patient visit [facility] Facility:[facility] Start: 11-11-2024 End: 11-11-2024 ambulatory JOEL R RISALITI Not Available Start: 11-11-2024 End: 11-11-2024 Office outpatient visit 25 minutes Joel R Risaliti RENEWABLE ENERGY CONSULTANT Work Phone: [facility] Comment on above: Rash and nonspecific skin eruption (Primary Dx); Degeneration of intervertebral disc of lumbar region with discogenic back pain Start: 11-06-2024 End: 11-06-2024 Office outpatient visit 15 minutes Hyacinth Barker RENEWABLE ENERGY CONSULTANT Work Phone: [facility] Comment on above: Rash and nonspecific skin eruption (Primary Dx) Start: 11-06-2024 End: 11-06-2024 ambulatory [facility] Not Available Start: 10-19-2024 End: 10-22-2024 Refill Fiona Harkins MD Work Phone: Cardiology Comment on above: Refill Request Start: 09-20-2024 End: 09-20-2024 Office outpatient visit 25 minutes Beto Rocha APRN-BOAT CANVAS MAKER INSTALLER Work Phone: [facility] Comment on above: Lumbar facet arthrop athy (Primary Dx); S/P kyphoplasty; Spinal stenosis of lumbar region with neurogenic claudication Start: 09-20-2024 ambulatory BETO ROCHA [facility] Start: 09-19-[address] [facility] Start: 09-18-2024 End: 09-18-2024 ambulatory MALVIN PINTO Not Available Start: 09-02-2024 End: 09-02-2024 Telephone encounter Lisandra Guerin MD Work Phone: [facility] Comment on above: Care Navigation Start: 09-02-2024 End: 09-02-2024 Office outpatient visit 15 minutes Malvin Pinto MD Work Phone: [facility] Comment on above: Herniated lumbar int ervertebral disc (Primary Dx); S/P kyphoplasty; Lumbosacral disc herniation Start: 09-02-2024 End: 09-02-2024 [facility] Start: 08-28-2024 End: 08-28-2024 Office outpatient visit 25 minutes Joel Wilkerson NP Work Phone: [facility] Comment on above: Essential hypertensi on (CMS/HCC) (Primary Dx); Pure hypercholesterolemia (CMS/HCC); Coronary artery disease involving bad river band coronary artery of bad river band heart without angina pectoris (CMS/HCC); Paroxysmal supraventricular tachycardia (CMS/HCC); Pulmonary hypertension (CMS/HCC); Aortic stenosis, moderate; Acquired hypothyroidism (CMS/HCC); Gastroesophageal reflux disease without esophagitis; RLS (restless legs syndrome); Primary osteoarthritis involving multiple joints; Anemia, unspecified type; OAB (overactive bladder); Age-related osteoporosis without current pathological fracture (CMS/HCC); History of TIA (transient ischemic attack); Vitamin D deficiency; Encounter for screening mammogram for malignant neoplasm of breast; Medicare annual wellness visit, subsequent; ACP (advance care planning) Start: 08-28-2024 End: 08-28-2024 Patient encounter procedure Joel Wilkerson NP Work Phone: [facility] Start: 08-28-2024 End: 08-28-2024 ambulatory JOEL WILKERSON Not Available Start: 07-23-2024 End: 07-23-[address] [facility] Start: 07-22-2024 End: 07-22-2024 ambulatory [facility] Facility:[facility] Start: 07-22-2024 End: 07-22-2024 Patient encounter procedure Renata Sandoval MD Work Phone: Otolaryngology Comment on above: Bilateral impacted c erumen (Primary Dx) Start: 07-16-2024 End: 07-16-2024 ambulatory NADEGE GARNETT Not Available Start: 07-16-2024 End: 07-16-2024 Office outpatient visit 25 minutes Nadege Garnett RENEWABLE ENERGY CONSULTANT Work Phone: [facility] Comment on above: Dysuria (Primary Dx) Start: 07-09-2024 End: 07-09-2024 ambulatory SEVERIANO RIVERA [facility] Start: 06-29-2024 End: 06-30-2024 Emergency department patient visit MD Kyle Amin Work Phone: [facility] Work Phone: Start: 2024 End: 2024 Refill Fiona Harkins MD Work Phone: Cardiology Comment on above: Refill Request Start: 06-25-2024 End: 06-25-2024 ambulatory BETO ROCHA [facility] Start: 06-24-2024 End: 06-24-2024 Refill Anisha Barajas LPN [facility] Comment on above: Acute midline low ba ck pain without sciatica Start: 06-21-2024 End: 06-21-2024 Documentation procedure Lisandra Guerin MD Work Phone: [facility] Start: 06-21-2024 End: 06-21-2024 Telephone [facility] Comment on above: Precert for Kyphopla sty Start: 06-20-2024 End: 06-20-2024 Telephone encounter Shae Little [facility] Start: 06-18-2024 End: 06-18-2024 Telephone encounter John Weathers MD Work Phone: Neurology Comment on above: Insurance Authorizat ion; Appointment resutls/referral Start: 06-18-2024 End: 06-18-2024 Patient encounter procedure John Weathers MD Work Phone: Neurosurgery Comment on above: Chronic bilateral lo w back pain with right-sided sciatica (Primary Dx) Compression fracture of T12 vertebra, initial encounter ([facility]) (Primary Dx); Compression fracture of L3 vertebra, initial encounter ([facility]-H[facility]); Age-related osteoporosis with current pathological fracture, vertebra(e), initial encounter for fracture ([facility]) Start: 06-18-2024 End: 06-18-2024 ambulatory [facility] Facility:[facility] Start: 06-14-2024 End: 06-14-[address] [facility] Start: 06-14-2024 End: 06-14-2024 Office outpatient visit 15 minutes Beto Rocha PROGRAM ATTENDANT-BOAT CANVAS MAKER INSTALLER Work Phone: [facility] Comment on above: Spinal stenosis of l umbar region with neurogenic claudication (Primary Dx); Scoliosis of lumbar spine, unspecified scoliosis type; Radiculopathy, lumbar region; Chronic midline low back pain with bilateral sciatica Start: 06-14-2024 End: 06-14-2024 ambulatory [facility] Comment on above: Chronic midline low back pain with bilateral sciatica (Primary Dx); Scoliosis of lumbar spine, unspecified scoliosis type; Spinal stenosis of lumbar region with neurogenic claudication; Radiculopathy, lumbar region; Lumbar pain Start: 06-12-2024 ambulatory [facility] Start: 06-12-2024 End: 06-12-2024 Telephone encounter [facility] Start: 06-12-2024 End: 06-12-2024 Patient encounter procedure Jayden Burks MD Work Phone: Neurology Comment on above: Chronic right-sided low back pain without sciatica (Primary Dx) Start: 06-12-2024 End: 06-12-2024 ambulatory JAYDEN BURKS Facility:[facility] Start: 06-11-2024 End: 06-12-2024 ambulatory [facility] Start: 06-11-2024 End: 06-11-2024 Telephone encounter [facility] L[facility] Start: 06-11-2024 End: 06-11-2024 ambulatory [facility] Comment on above: Lumbar pain (Primary Dx) Start: 06-07-2024 ambulatory Renata zendejas MD Work Phone: Otolaryngology Start: 06-07-2024 Patient encounter procedure Sa rossi Sandoval MD Work Phone: Otolaryngology Comment on above: An earlier appointme nt if possible Start: 05-31-2024 Telephone encounter Usama Weathers MD Work Phone: Neurosurgery Start: 05-29-2024 End: 05-29-2024 Emergency department patient visit [facility] Facility:[facility] Start: 05-29-2024 End: 05-29-2024 ambulatory [facility] Facility:[facility] Start: 05-29-2024 End: 05-29-2024 Patient encounter procedure Fiona Harkins MD Work Phone: Cardiology Comment on above: Obesity, Class I, BM I 30-34.9 (Primary Dx); Pulmonary hypertension (HCC); Preop cardiovascular exam; Coronary artery disease involving bad river band coronary artery of bad river band heart without angina pectoris Start: 05-29-2024 End: 05-29-2024 Patient encounter status Fiona Harkins MD Work Phone: [facility] Start: 05-25-2024 ambulatory Elton Neal Work Phone: [facility] Comment on above: Back Pain subsequent to appt. And injection. Start: 05-23-2024 End: 05-23-2024 Patient encounter procedure Elton Pham MD Work Phone: [facility] Comment on above: Closed compression f racture of L3 lumbar vertebra, initial encounter ([facility]) (Primary Dx); Iliotibial band syndrome of right side; Degenerative scoliosis in adult patient; Lumbar spondylosis; Lumbar radiculopathy Start: 05-21-2024 Telephone encounter Megan Fonseca PA-C Work Phone: [facility] Start: 05-17-2024 End: 05-17-2024 Subsequent hospital visit by physician [facility] (1.5t[facility] Comment on above: Other fracture of un specified lumbar vertebra, initial encounter for closed fracture (HCC) [S32.008A] Start: 05-17-2024 Telephone encounter Megan Fonseca PA-C Work Phone: [facility] Comment on above: Insurance Authorizat ion Start: 05-17-2024 End: 05-17-2024 ambulatory [facility] Facility:[facility] Start: 05-17-2024 End: 05-17-2024 Patient encounter procedure Megan Kirby PA-C Work Phone: [facility] Comment on above: Other fracture of un specified lumbar vertebra, initial encounter for closed fracture (HCC) (Primary Dx); Chronic bilateral low back pain without sciatica Start: 05-15-2024 End: 05-15-2024 ambulatory JOEL WILKERSON Not Available Start: 05-10-2024 End: 05-10-2024 ambulatory [facility] Facility:[facility] Start: 05-10-2024 End: 05-10-2024 Patient encounter procedure Francisco Arce PA-C Work Phone: Orthopaedics Comment on above: Pain due to total hi p replacement, initial encounter (HCC) (HCC) (Primary Dx); Chronic right-sided low back pain, unspecified whether sciatica present Start: 04-30-2024 End: 04-30-2024 Emergency department patient visit [facility] Facility:[facility] Start: 04-30-2024 ambulatory Radha perez RN NURSE VENDOR RELATIONSHIP MANAGER Start: 04-30-2024 Patient encounter procedure Cathryn Sheriff RN NURSE VENDOR RELATIONSHIP MANAGER Comment on above: Referral Request Start: 04-29-2024 Telephone encounter Jayden proctor MD Work Phone: Neurology Comment on above: Patient Question; Ap pointment Start: 04-18-2024 End: 04-18-2024 Orders Only Fran Rachel PA-C Work Phone: [facility] Comment on above: Pain (Primary Dx) 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 (Primary Dx); Pain in right hip Pain [R52] Start: 04-17-2024 End: 04-17-2024 ambulatory Beena Gallardo PT Work Phone: Physical Therapy Comment on above: Dizziness (Primary D x); Balance problem; Vertigo Start: 04-11-2024 Telephone encounter Fiona Harkins MD Work Phone: Cardiology Start: 04-08-2024 End: 04-08-2024 ambulatory [facility] Facility:[facility] Start: 04-08-2024 End: 04-08-2024 Patient encounter procedure Radha Zaragoza APRN.BOAT CANVAS MAKER INSTALLER Work Phone: Cardiology Comment on above: Bladder problem (Rebeca nikolas Dx); Coronary artery disease involving bad river band coronary artery of bad river band heart without angina pectoris; Primary hypertension; Other hyperlipidemia; Atherosclerosis of aorta (HCC) Start: 04-02-2024 Refill Fiona herbert MD Work Phone: Cardiology Comment on above: Refill Request Start: 04-02-2024 Refill Fiona herbert MD Work Phone: Cardiology Comment on above: Refill Request Start: 03-29-2024 Telephone encounter Radha Zaragoza APRN.BOAT CANVAS MAKER INSTALLER Work Phone: Cardiology Start: 03-28-2024 End: 03-28-2024 [facility] Facility:[facility] Start: 03-28-2024 End: 03-28-2024 ambulatory Beena Seese PT Work Phone: Physical Therapy Comment on above: Dizziness (Primary D x); Balance problem; Benign paroxysmal positional vertigo of left ear Start: 03-18-2024 Telephone encounter Jayden proctor MD Work Phone: Neurology Comment on above: Orders Start: 03-15-2024 End: 03-15-2024 ambulatory Beena Seese PT Work Phone: Physical Therapy Comment on above: Balance problem (Rebeca nikolas Dx); Vertigo; Benign paroxysmal positional vertigo of left ear Start: 03-11-2024 Orders Only Radha cervantes APRN.BOAT CANVAS MAKER INSTALLER Work Phone: Cardiology Comment on above: Hypokalemia (Primary Dx) Start: 03-07-2024 End: 03-07-2024 Subsequent hospital visit by physician [facility] Comment on above: SOB (shortness of br eath) [R06.02] Start: 03-07-2024 End: 03-07-2024 ambulatory [facility] Facility:[facility] Start: 03-04-2024 Telephone encounter Radha Zaragoza APRN.BOAT CANVAS MAKER INSTALLER Work Phone: Cardiology Start: 03-03-2024 End: 03-03-2024 ambulatory YRN STEPHEN Not Available Start: 03-01-2024 End: 03-01-2024 Patient encounter procedure Stress Lab [facility] Work Phone: Cardiology Comment on above: Coronary artery dise ase involving bad river band coronary artery of bad river band heart without angina pectoris (Primary Dx) Start: 03-01-2024 End: 03-01-2024 ambulatory [facility] [facility] Facility:[facility] Start: 03-01-2024 End: 03-01-2024 ambulatory RADHA ZARAGOZA Facility:[facility] Start: 03-01-2024 End: 03-01-2024 Patient encounter procedure Nuclear Study [facility] Work Phone: Cardiology Comment on above: Encounter for screen ing for cardiovascular disorders Start: 02-29-2024 End: 02-29-2024 OT/PT/Speech Visit Nikolas Soto PT [facility] Comment on above: Tremor, unspecified (Primary Dx); Functional movement disorder Start: 02-27-2024 Telephone encounter Radha Zaragoza APRN.BOAT CANVAS MAKER INSTALLER Work Phone: Cardiology Comment on above: Results Start: 02-26-2024 End: 02-26-2024 Patient encounter procedure Jayden Burks MD Work Phone: Neurology Comment on above: Functional movement disorder (Primary Dx); Vertigo Start: 02-26-2024 End: 02-26-2024 ambulatory JAYDEN BURKS Facility:[facility] Start: 02-26-2024 End: 02-26-2024 ambulatory [facility] Facility:[facility] Start: 02-20-2024 End: 02-20-2024 ambulatory KYLE AMIN Not Available Start: 02-19-2024 End: 02-19-2024 ambulatory [facility] Facility:[facility] Start: 02-19-2024 End: 02-19-2024 Patient encounter procedure Arleth Carias PhD Work Phone: [facility] Comment on above: 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); Functional movement disorder Start: 02-12-2024 End: 02-12-2024 ambulatory RADHA BRIDGESTAMRA Facility:[facility] Start: 02-12-2024 End: 02-12-2024 Patient encounter procedure Radha Guerrero Zbigniew PROGRAM ATTENDANT.BOAT CANVAS MAKER INSTALLER Work Phone: Cardiology Comment on above: Paroxysmal supravent ricular tachycardia (HCC) (Primary Dx); Encounter for screening for cardiovascular disorders; Leg swelling; SOB (shortness of breath); Coronary artery disease involving bad river band coronary artery of bad river band heart without angina pectoris; Primary hypertension; Other hyperlipidemia; Pulmonary hypertension (HCC); Atherosclerosis of aorta (HCC) Start: 02-08-2024 Telephone encounter Fiona Harkins MD Work Phone: Cardiology Start: 02-07-2024 End: 02-07-2024 OT/PT/Speech Visit Nikolas Soto PT [facility] Comment on above: Tremor, unspecified (Primary Dx); Functional movement disorder Start: 02-02-2024 End: 02-02-2024 Refill Fiona Harkins MD Work Phone: Cardiology Comment on above: Refill Request Tremor, unspecified (Primary Dx); Functional movement disorder Start: 01-30-2024 End: 01-30-2024 ambulatory [facility] Facility:[facility] Start: 01-30-2024 End: 01-30-2024 Office outpatient visit 15 minutes Nimco Dior DO Work Phone: [facility] Comment on above: Functional movement disorder (Primary Dx) Start: 01-24-2024 End: 01-24-2024 ambulatory [facility] Facility:[facility] Start: 01-18-2024 End: 01-18-2024 OT/PT/Speech Visit Alison Klein PT [facility] Comment on above: Tremor, unspecified; Functional movement disorder Start: 01-09-2024 End: 01-09-2024 ambulatory IMAD NAJM Facility:[facility] Start: 01-09-2024 End: 01-09-2024 Office outpatient new 30 minutes Nimco Lawrence Barby DO Work Phone: [facility] Comment on above: Functional movement disorder (Primary Dx); Tremor, unspecified Start: 01-03-2024 End: 01-03-2024 ambulatory KYLE OWENS [facility] Facility:[facility] Start: 01-02-2024 End: 01-02-2024 ambulatory JAYDEN BURKS Facility:[facility] Start: 12-31-2023 Telephone encounter Fiona Harkins MD Work Phone: Cardiology Comment on above: Results Start: 12-30-2023 End: 12-31-2023 Evaluation and management of inpatient IMAD NAJM Facility:[facility] Start: 12-29-2023 Refill Fiona herbert MD Work Phone: Cardiology Comment on above: Refill Request (Losa rtan) Start: 12-19-2023 Refill Fiona herbert MD Work Phone: Cardiology Comment on above: Refill Request (Repa julianna) Start: 12-13-2023 Chart abstracting Jayden tran MD Work Phone: Neurology Start: 12-12-2023 End: 12-12-2023 Refill Fiona Harkins MD Work Phone: Cardiology Comment on above: Refill Request Tremor (Primary Dx); Alteration of consciousness; Speech disturbance, unspecified type Start: 12-10-2023 Clinisync Result Encounter Gen katelyn External Data Provider [facility] External Department Unsolicited Start: 12-10-2023 Clinisync Result Encounter Gen katelyn External Data Provider [facility] External Department Unsolicited Start: 12-09-2023 End: 12-11-2023 ambulatory Steven Pedersen MD Work Phone: Neurosurgery Comment on above: Stroke-like symptoms (Primary Dx) Start: 12-09-2023 Clinisync Result Encounter Gen katelyn External Data Provider [facility] External Department Unsolicited Start: 12-09-2023 Clinisync Result Encounter Gen katelyn External Data Provider [facility] External Department Unsolicited Start: 12-09-2023 Telemedicine consult ation with patient Steven Slava PORTILLO Work Phone: [facility] Start: 12-08-2023 End: 12-08-2023 Emergency department patient visit MD Kyle Amin Work Phone: [facility] Work Phone: Start: 12-08-2023 ambulatory Fiona herbert MD Work Phone: Cardiology Comment on above: Hector Gerard Start: 12-01-2023 ambulatory Agustín Ornelas MD Work Phone: [facility] Center Comment on above: Hector 11/30/23 episode Start: 11-30-2023 Telephone encounter Agustín Ornelas MD Work Phone: Endovascular Center Comment on above: Patient Update (Sara ent's states patient is at [facility] with the same symptoms ) Start: 11-30-2023 Non-patient / Non-visit MD Td Amin Work Phone: [facility] Work Phone: Start: 11-30-2023 End: 12-04-2023 Evaluation and management of inpatient MD Kyle Amin Work Phone: [facility] Work Phone: Start: 11-27-2023 End: 11-27-2023 ambulatory JAYDEN BURKS Facility:[facility] Start: 11-22-2023 End: 11-22-2023 ambulatory KYLE AMIN Not Available Start: 11-15-2023 End: 11-16-2023 Evaluation and management of inpatient MD Kyle Amin Work Phone: [facility] Work Phone: Start: 11-15-2023 End: 11-16-2023 observation encounter MD Kyle Amin Work Phone: [facility] Work Phone: Start: 11-15-2023 End: 11-16-2023 ambulatory Aaron J Rod Facility:[facility] Start: 10-19-2023 End: 10-20-2023 ambulatory Eze Franks Facility:[facility] Start: 10-19-2023 End: 10-20-2023 Evaluation and management of inpatient MD Kyle Amin Work Phone: [facility] Work Phone: Start: 10-19-2023 End: 10-19-2023 Emergency department patient visit [facility] Start: 10-18-2023 Telephone encounter Jayden proctor MD Work Phone: Neurology Comment on above: [facility] Start: 09-12-2023 Refill Fiona herbert MD Work Phone: Cardiology Start: 06-20-2023 Telephone encounter Diane hagan MD Work Phone: Cardiology Comment on above: Patient Update Start: 06-12-2023 End: 06-12-2023 Patient encounter procedure Fiona Harkins MD Work Phone: Cardiology Comment on above: Coronary artery dise ase involving bad river band heart with angina pectoris, unspecified vessel or lesion type (HCC) (Primary Dx) Start: 04-25-2023 Telephone encounter Jayden proctor MD Work Phone: Neurology Comment on above: Orders Start: 04-18-2023 End: 04-18-2023 Patient encounter procedure Jayden Burks MD Work Phone: Neurology Comment on above: Memory loss (Primary Dx); Diplopia Start: 03-31-2023 End: 03-31-2023 ambulatory MD Kyle Amin Work Phone: [facility] Work Phone: Start: 03-31-2023 End: 03-31-2023 Patient encounter procedure MD Kyle Amin Work Phone: [facility] Work Phone: Start: 02-07-2023 Refill Fiona herbert MD Work Phone: Cardiology Comment on above: Refill Request Start: 01-02-2023 Telephone encounter Fiona Harkins MD Work Phone: Cardiology Comment on above: Results Start: 12-15-2022 End: 12-15-2022 Patient encounter procedure Fiona Harkins MD Work Phone: Cardiology Comment on above: Coronary artery dise ase involving bad river band heart with angina pectoris, unspecified vessel or lesion type (HCC) (Primary Dx); Edema leg; SOB (shortness of breath) Start: 12-05-2022 Telephone encounter Ren gutierrez MD Work Phone: Ophthalmology Comment on above: Patient Update Start: 10-14-2022 Refill Fiona herbert MD Work Phone: Cardiology Comment on above: Refill Request Start: 10-11-2022 Refill Aurora Noel APRN.CNP Work Phone: Cardiology Comment on above: Refill Request Start: 09-05-2022 Telephone encounter Jayden proctor MD Work Phone: Neurology Comment on above: Patient Question Start: 08-08-2022 End: 08-09-2022 ambulatory [facility] Start: 08-08-2022 End: 08-08-2022 [facility] Start: 07-11-2022 End: 07-11-2022 Patient encounter procedure Renata aSndoval MD Work Phone: Otolaryngology Comment on above: Hearing loss of both ears due to cerumen impaction (Primary Dx) Start: 06-29-2022 End: 09-29-2022 ambulatory HENRRYHILLARY LUQUE Facility:[facility] Start: 06-20-2022 End: 06-21-2022 Patient encounter procedure Research Nurse Card [facility] [place] Work Phone: Preventive Cardiology Comment on above: Research study pativel nt (Primary Dx) Start: 06-20-2022 End: 06-21-2022 Patient entered into trial Research Nurse [facility] Work Phone: Preventive Cardiology Start: 06-17-2022 Telephone encounter Jayden proctor MD Work Phone: Neurology Comment on above: Results - Mri Start: 05-31-2022 Telephone encounter Fiona Harkins MD Work Phone: Cardiology Comment on above: Results Start: 05-30-2022 End: 05-30-2022 Patient encounter procedure Nuclear Study [place] Work Phone: Cardiology Comment on above: Clear Outcomes Study , PI: Eva Fischer MD; 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, unspecified vessel or lesion type (HCC) Start: 05-30-2022 End: 05-30-2022 Patient entered into trial Nuclear [facility] Work Phone: Cardiology Start: 05-20-2022 Telephone encounter Jayden proctor MD Work Phone: Neurology Comment on above: test results Start: 05-20-2022 End: 05-20-2022 Nursing evaluation of patient and report Research Nurse Card [facility] Work Phone: Cardiology Comment on above: Clear Outcomes Study , PI: Eva Fischer MD (Primary Dx) Start: 05-20-2022 End: 05-20-2022 Patient encounter procedure Fiona Harkins MD Work Phone: Cardiology Comment on above: Clear Outcomes Study , PI: Eva Fischer MD (Primary Dx); 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, unspecified vessel or lesion type (HCC) Start: 05-20-2022 End: 05-20-2022 Patient entered into trial Fiona Harkins MD Work Phone: Cardiology Start: 04-11-2022 End: 04-11-2022 Patient encounter procedure Jayden Burks MD Work Phone: Neurology Comment on above: Diplopia (Primary Dx ) Start: 03-19-2022 End: 03-19-2022 Emergency department patient visit Noa Perkins Facility:[facility] Start: 03-19-2022 End: 03-19-2022 Emergency department patient visit KYLE AMIN [facility] Start: 02-18-2022 End: 06-30-2022 ambulatory GUERO MORSE Facility:[facility] Start: 02-15-2022 End: 02-17-2022 Pre-admission assessment GUEROABDOULAYE MORSE [facility] Start: 02-01-2022 Rx Renewal Kyle Amin Work Phone: [facility] 250 DO Work Phone: Start: 01-18-2022 End: 01-24-2022 ambulatory GUERO MORSE Facility:[facility] Start: 01-10-2022 End: 01-13-2022 Evaluation and management of inpatient GUERO MORSE Facility:[facility] Start: 12-13-2021 Office outpatient vi sit 10 minutes Kyle Amin Work Phone: [facility] 250 DO Work Phone: Start: 11-24-2021 Chart Update Kyle Amin Work Phone: [facility] 600 DO Work Phone: Start: 11-16-2021 AUDIT Kyle Amin Work Phone: [facility] [address] [place] Work Phone: Start: 11-15-2021 Patient encounter procedure Ro pb Amin Work Phone: [facility] 250 DO Work Phone: Start: 10-28-2021 Patient encounter procedure Carey pb Amin Work Phone: [facility] [address] [place] Work Phone: Start: 10-25-2021 End: 10-26-2021 ambulatory Aria English Facility:[facility] Start: 10-21-2021 End: 10-22-2021 ambulatory Aria English Facility:[facility] Start: 08-30-2021 Rx Renewal Kyle Amin Work Phone: [facility] 600 DO Work Phone: Start: 08-11-2021 Rx Renewal Kyle Amin Work Phone: [facility] 250 DO Work Phone: Start: 08-10-2021 Rx Renewal Kyle Amin Work Phone: [facility] 250 DO Work Phone: Start: 10-27-2020 End: 10-29-2020 Evaluation and management of inpatient Lawanda Berry Work Phone: [facility] S[facility] Comment on above: NSTEMI (non-ST eleva dorian myocardial infarction) (HCC) (Primary Dx); Acute hypotension; Paroxysmal atrial fibrillation (HCC) Start: 09-17-2020 End: 09-17-2020 Subsequent hospital visit by physician Abigail Garcia 1 Work Phone: Radiology Comment on above: Pain [R52] Start: 10-04-2018 Patient entered into trial Pet margarette Burks MD Work Phone: [facility] Start: 06-28-2017 Ambulatory SAY DAWKINS Facilit y:H1 Start: 05-27-2015 Patient encounter status Jayden Burks MD Work Phone: [facility] Work Phone: Procedures Date Procedure Procedure Detail Performing Clinician Start: 11-12-2024 Antibody screen GASDANY NEMR Comment on above: Order Comment: Specimen Type: BLOOD SPEC IMENOrdering Facility: [facility] Address: [address] [place] [address] Performed By: #### T SCR ####BAY BLOOD BANKCLIA [id number] [place] [address] [place] Start: 07-16-2024 URINARY TRACT INFECTION (HTRX) Fiona Arango DO Work Phone: Start: 07-16-2024 Urnls dip stick/tablet rgnt auto w/o microscopy Fiona Arango DO Work Phone: Start: 06-14-2024 Follow-up visit Follow-up BETO ROCHA Start: 05-23-2024 Us compl joint r-t w/image documentation Elton Pham MD Work Phone: Start: 04-18-2024 Radex hip unilateral with pelvis 2-3 views Fran Rachel PA-C Work Phone: Start: 02-12-2024 Ecg routine ecg w/least 12 lds i&r only Radha Zaragoza PROGRAM ATTENDANT.BOAT CANVAS MAKER INSTALLER Work Phone: Start: 12-10-2023 [facility] CBC PNL BLD AUTO Generic External Data Provider Start: 12-09-2023 [facility] TSH SERPL-ACNC Generic External Data Provider Start: 12-08-2023 CT of head without contrast MD Kyle hummel Work Phone: Start: 12-08-2023 Plain chest X-ray MD Kyle Amin Work Phone: Start: 11-30-2023 CT angiography of head MD Kyle Amin Work Phone: Start: 11-30-2023 CT angiography of neck vessels MD Kyle Amin Work Phone: Start: 11-30-2023 CT of head without contrast MD Kyle hummel Work Phone: Start: 11-15-2023 Plain chest X-ray MD Kyle Amin Work Phone: Start: 11-15-2023 CT angiography of head MD Kyle Amin Work Phone: Start: 11-15-2023 CT angiography of neck vessels MD Kyle Amin Work Phone: Start: 11-15-2023 CT of head without contrast MD Kyle hummel Work Phone: Start: 10-20-2023 MRI of head MD Kyle Amin Work Phone: Start: 10-19-2023 Urine culture MD Kyle Amin Work Phone: Start: 10-19-2023 CT angiography of head MD Kyle Amin Work Phone: Start: 10-19-2023 CT angiography of neck vessels MD Kyle Amin Work Phone: Start: 10-19-2023 CT of head without contrast MD Kyle hummel Work Phone: Start: 10-19-2023 Plain chest X-ray MD Kyle Amin Work Phone: Start: 03-31-2023 Plain X-ray of right hip MD Kyle Amin Work Phone: Start: 05-30-2022 Myocardial spect multiple studies Deanna Harkins MD Work Phone: Start: 01-08-2022 Antibody screen GUERO MORSE Comment on above: Order Comment: 2 units Performed By: #### 3 [id number] #### [address] Start: 05-04-2021 Colonoscopy GUERO MORSE Start: 05-04-2021 Esophagogastroduodenoscopy gastric outlet reduction GUERO MORSE Start: 01-04-2021 Prosthetic arthroplasty of the hip [place] MORSE Comment on above: anterior approach Start: 10-29-2020 Urnls dip stick/tablet rgnt auto w/o microscopy Lawanda Berry Work Phone: Start: 10-29-2020 Blood count complete automated Claudia Lee Work Phone: Start: 10-28-2020 Ecg routine ecg w/least 12 lds w/i&r Lawanda Berry Work Phone: Start: 10-28-2020 Myocardial spect multiple studies Eze Perez Work Phone: Start: 10-28-2020 BASIC METABOLIC PANEL W/ REFLEX TO MG FOR LOW K Yesy S Puthoff Work Phone: Start: 10-28-2020 Blood count complete automated Yesy S Puthoff Work Phone: Start: 10-28-2020 Lipid panel Yesy S Puthoff Work Phone: Start: 10-28-2020 Ecg routine ecg w/least 12 lds w/i&r Yesy S Puthoff Work Phone: Start: 10-28-2020 Assay of troponin quantitative Yesy S Puthoff Work Phone: Start: 10-28-2020 Thromboplastin time partial plasma/whole blood Claudia Lee Work Phone: Start: 10-27-2020 Assay of troponin quantitative Yesy S Puthoff Work Phone: Start: 10-27-2020 Assay of troponin quantitative Yesy S Puthoff Work Phone: Start: 10-27-2020 Ecg routine ecg w/least 12 lds w/i&r Yesy S Puthoff Work Phone: Start: 10-27-2020 COVID-19 Claudia Lee Work Phone: Start: 10-27-2020 Ct thorax w/contrast material Libertad Rosas Work Phone: Start: 10-27-2020 Radiologic exam chest 2 views Libertad Rosas Work Phone: Start: 10-27-2020 Assay of troponin quantitative Libertad Susana s Ralph Work Phone: Start: 10-27-2020 BASIC METABOLIC PANEL W/ REFLEX TO MG FOR LOW K Libertad Jalen Ralph Work Phone: Start: 10-27-2020 Blood count complete auto&auto difrntl wbc Libertad Rosas Work Phone: Start: 10-27-2020 Gonadotropin chorionic qualitative Libertad Rosas Work Phone: Start: 10-27-2020 Natriuretic peptide Claudia Lee Work Phone: Start: 10-27-2020 Prothrombin time Claudia Castilloiwether Work Phone: Start: 10-27-2020 Thromboplastin time partial plasma/whole blood Claudia Castilloiwether Work Phone: Start: 10-27-2020 Ecg routine ecg w/least 12 lds w/i&r Libertad Rosas Work Phone: Start: 09-17-2020 Radex hip unilateral with pelvis 2-3 views Sorin Lima MD Work Phone: Start: 07-25-2014 left knee scope GUERO JENA Angioplasty of blood vessel Kyle Amin Work Phone: back surgery L4-5 la minectomy 07-10-15 GUERO JENA Cardiac catheterization Eugene Amin Work Phone: Hammer toe operation GUERO JENA Hand surgery service (qualifier value) GUERO MORSE Hysterectomy Kyle Amin Work Phone: Operative procedure on hand Kyle Amin Work Phone: Operative procedure on knee Kyle Amin Work Phone: Procedure on back Kyle gonzalez Work Phone: Prosthetic arthroplasty of the hip Kyle Amin Work Phone: Total colonoscopy Kyle gonzalez Work Phone: Plan of Treatment Date Care Activity Detail Author Start: 11-12-2027 Diabetes Screening Diabetes Screening [facility] Start: 05-29-2027 Diabetes Screening Diabetes Screening [facility] Start: 04-30-2027 Diabetes Screening Diabetes Screening [facility] Start: 03-28-2027 Diabetes Screening Diabetes Screening [facility] Start: 03-07-2027 Diabetes Screening Diabetes Screening [facility] Start: 02-25-2027 Diabetes Screening Diabetes Screening [facility] Start: 12-29-2026 Diabetes Screening Diabetes Screening [facility] Start: 12-11-2026 Diabetes Screening Diabetes Screening [facility] Start: 12-09-2026 Diabetes Screening Diabetes Screening [facility] Start: 06-14-2026 DIABETES SCREEN DIABETES SCREEN [facility] Start: 06-14-2026 Diabetes Screening Diabetes Screening [facility] Start: 09-20-2025 Tobacco Screening Tobacco Screening [facility] Start: 09-02-2025 Adult BMI Screening Adult BMI Screening [facility] Start: 09-02-2025 Tobacco Screening Tobacco Screening [facility] Start: 08-28-2025 Medicare Annual Wellness (AWV) Medicare Annual Wellness (AWV) [facility] Start: 06-14-2025 Adult BMI Screening Adult BMI Screening [facility] Start: 06-14-2025 Tobacco Screening Tobacco Screening [facility] Start: 06-11-2025 Adult BMI Screening Adult BMI Screening [facility] Start: 06-11-2025 Tobacco Screening Tobacco Screening [facility] Start: 03-03-2025 End: 03-03-2025 Patient encounter procedure 03/03/2025 3:30 PM EDT Office Visit [facility] [address] [place] [address] Joel Wilkerson, RENEWABLE ENERGY CONSULTANT [address] [place] [address] [facility] Start: 02-26-2025 End: 08-28-2025 25-hydroxyvitamin D3 [Mass/volume] in Serum or Plasma Vitamin D 25 hydroxy Total Lab Routine Vitamin D deficiency Expected: 02/26/2025 (Approximate), Expires: 08/28/2025 [facility] Comment on above: Expected: 02/26/2025 (Approximate), Expi res: 08/28/2025 Start: 02-26-2025 End: 08-28-2025 CBC W Auto Differential panel - Blood CBC and differential Lab Routine Anemia, unspecified type Expected: 02/26/2025, Expires: 08/28/2025 [facility] Comment on above: Expected: 02/26/2025, Expires: Start: 02-26-2025 End: 08-28-2025 Comprehensive metabolic 2000 panel - Serum or Plasma Comprehensive metabolic panel Lab Routine Essential hypertension ([facility]/HCC) Expected: 02/26/2025, Expires: 08/28/2025 [facility] Comment on above: Expected: 02/26/2025, Expires: Start: 02-26-2025 End: 08-28-2025 Lipid 1996 panel - Serum or Plasma Lipid panel Lab Routine Pure hypercholesterolemia ([facility]/HCC) Expected: 02/26/2025, Expires: 08/28/2025 [facility] Comment on above: Expected: 02/26/2025, Expires: Start: 02-26-2025 End: 08-28-2025 Microalbumin/Creatinine panel in random Urine Microalbumin / creatinine urine ratio Lab Routine Essential hypertension ([facility]/HCC) Expected: 02/26/2025, Expires: 08/28/2025 [facility] Comment on above: Expected: 02/26/2025, Expires: Start: 02-26-2025 End: 08-28-2025 Thyrotropin [Units/volume] in Serum or Plasma TSH Lab Routine Acquired hypothyroidism ([facility]) Expected: 02/26/2025, Expires: 08/28/2025 [facility] Comment on above: Expected: 02/26/2025, Expires: Start: 02-26-2025 End: 08-28-2025 Urinalysis complete panel - Urine Urinalysis with microscopic Lab Routine Essential hypertension ([facility]/HCC) Expected: 02/26/2025, Expires: 08/28/2025 [facility] Comment on above: Expected: 02/26/2025, Expires: Start: 01-01-2025 Influenza vaccination Influenza Vaccine (#1) [facility] Comment on above: Postponed from 06/30/2024 (Patient Refus ed) Start: 12-18-2024 End: 12-18-2024 Patient encounter procedure 12/18/2024 11:15 AM EST Office Visit Cardiology [address] [place] [address] Fiona [place] [address] 6 months follow up Cardiology Comment on above: 6 months follow up Start: 12-09-2024 Hepatitis B surface antibody level LDL Cholesterol [facility] Start: 10-30-2024 Advance Directive Discussion Advance Directive Discussion [facility] Start: 10-23-2024 Influenza vaccination Influenza Vaccine (#1) [facility] Comment on above: Postponed from 06/30/2024 (Patient Refus ed) Start: 09-02-2024 End: 09-02-2025 MR Thoracic spine WO contrast MR thoracic spine without contrast Imaging Routine Herniated lumbar intervertebral disc Expected: 09/02/2024, Expires: 09/02/2025 [facility] Work Phone: Comment on above: Expected: 09/02/2024, Expires: Start: 08-28-2024 End: 08-28-2024 Patient encounter procedure 08/28/2024 2:30 PM EDT Office Visit [facility] [address] [place] [id number] Joel Wilkerson, RENEWABLE ENERGY CONSULTANT [address] [place] [address] [facility] Start: 08-28-2024 End: 11-28-2024 DBT Breast - bilateral screening Bilateral screening mammogram with tomosynthesis Imaging Routine Encounter for screening mammogram for malignant neoplasm of breast Expected: 08/28/2024 (Approximate), Expires: 11/28/2024 [facility] Comment on above: Expected: 08/28/2024 (Approximate), Expi res: 11/28/2024 Start: 08-28-2024 End: 11-28-2024 DXA Skeletal system Views for bone density DEXA bone density Imaging Routine Age-related osteoporosis without current pathological fracture (CMS/HCC) Expected: 08/28/2024 (Approximate), Expires: 11/28/2024 [facility] Work Phone: Comment on above: Expected: 08/28/2024 (Approximate), Expi res: 11/28/2024 Start: 08-21-2024 End: 08-21-2024 Patient encounter procedure 08/21/2024 9:40 AM EDT Office Visit Neurology [address] [place] [address] [place] [address] [place] [address] follow up in 3 mos Neurology Comment on above: follow up in 3 mos Start: 08-17-2024 Medicare Annual Wellness (AWV) Medicare Annual Wellness (AWV) [facility] Start: 08-12-2024 End: 08-12-2024 Patient encounter procedure 08/12/2024 1:30 PM EDT Office Visit Orthopaedics [address] [place] [address] Francisco Arce PA-C [address] [place] [address] right hip 3 month follow up Orthopaedics Comment on above: right hip 3 month follow up Start: 07-22-2024 End: 07-22-2024 Patient encounter procedure 07/22/2024 8:00 AM EDT Office Visit Otolaryngology [address] [address] Renata Sandoval MD [address] [place] [address] Ears feel plugged Otolaryngology Comment on above: Ears feel plugged Start: 07-11-2024 End: 07-11-2024 Patient encounter procedure [facility] Start: 07-08-2024 End: 07-08-2024 Patient encounter procedure 07/08/2024 9:00 AM EDT Office Visit [facility] [address] [place] [address] Injection Type: [facility] Comment on above: Injection Type: Start: 06-30-2024 Covid-19 Vaccine () Covid-19 Vaccine () [facility] Start: 06-30-2024 Influenza vaccination [facility] Start: 06-29-2024 CT angiography of thorax CT angio chest PE protocol [facility] Start: 06-29-2024 CT Chest [facility] Start: 06-29-2024 Plain chest X-ray XR chest 1V portable [facility] Start: 06-29-2024 XR Chest Single view [facility] Start: 06-29-2024 Bacteria identified in Urine by Culture [facility] Start: 06-25-2024 End: 06-25-2024 Patient encounter procedure 06/25/2024 9:00 AM EDT Appointment [facility] Interventional Radiology [address] [place] [id number] [facility] Interventional Radiology Start: 06-18-2024 End: 06-18-2025 RF Guidance for kyphoplasty of Lumbar spine IR kyphoplasty lumbar with guidance Imaging Routine Compression fracture of T12 vertebra, initial encounter ([facility]) Compression fracture of L3 vertebra, initial encounter ([facility]) Age-related osteoporosis with current pathological fracture, vertebra(e), initial encounter for fracture ([facility]) Expected: 06/18/2024, Expires: 06/18/2025 [facility] Work Phone: Comment on above: Expected: 06/18/2024, Expires: Start: 06-18-2024 End: 06-18-2024 [facility] encounter procedure [facility] Comment on above: Iliotibial band syndrome of right side-o k per Dr. Pham Mild compression fra ctures and looks like subacute Start: 06-14-2024 End: 06-14-2025 MR Lumbar spine WO contrast MR lumbar spine without contrast Imaging STAT Chronic midline low back pain with bilateral sciatica Scoliosis of lumbar spine, unspecified scoliosis type Spinal stenosis of lumbar region with neurogenic claudication Radiculopathy, lumbar region Lumbar pain Expected: 06/14/2024, Expires: 06/14/2025 [facility] Work Phone: Comment on above: Expected: 06/14/2024, Expires: Start: 06-14-2024 End: 06-14-2024 Patient encounter procedure [facility] Start: 06-12-2024 End: 06-12-2024 Patient encounter procedure Neurology Comment on above: Follow up Start: 06-11-2024 End: 06-11-2025 XR Lumbar spine Views AP W right bending and W left bending [facility] Work Phone: Comment on above: Expected: 06/11/2024, Expires: Start: 06-11-2024 Subsequent hospital visit by physician 06/11/2024 11:20 AM EDT Hospital Encounter [facility] [address] [place] [address] Lumbar pain; Chronic midline low back pain with bilateral sciatica; Lumbar Scoliosis [facility] Comment on above: Lumbar pain; Chronic midline low back pain with bilateral sciatica; Lumbar Scoliosis Start: 05-29-2024 End: 05-29-2024 Patient encounter procedure 05/29/2024 11:30 AM EDT Office Visit Cardiology [address] [place], [place] [id number] [place] [address] [place], [place] [id number] 6 months Cardiology Comment on above: 6 months Start: 05-23-2024 End: 05-23-2024 Patient encounter procedure [facility] Comment on above: chronic low back pain chronic low back george n Per Start: 05-17-2024 End: 05-17-2024 Patient encounter procedure 05/17/2024 11:00 AM EDT Office Visit [facility] [address] [place] [address] Megan Kirby PA-C [address] [place] [address] back pain [facility] Comment on above: back pain Start: 05-13-2024 End: 05-13-2024 Patient encounter procedure Neurology Comment on above: Follow up Reason for visit: Vi varun issued Start: 05-10-2024 End: 05-10-2024 Patient encounter procedure 05/10/2024 2:00 PM EDT Office Visit Orthopaedics [address] [place] [address] Francisco Arce PA-C [address] [place] [address] Right Hip pain, Orthopaedics Comment on above: Right Hip pain, Start: 05-07-2024 End: 05-07-2024 ambulatory 05/07/2024 1:00 PM EDT OT/PT/Speech Visit Physical Therapy [address] [place] [address] Beena Gallardo, PT [address] [place] [address] [facility]ST[facility]ULAR VERTIGO Physical Therapy Comment on above: [facility]STIBULAR VERTIGO Start: 04-28-2024 Influenza vaccination Influenza Vaccine (#1) [facility] Comment on above: Postponed from 06/30/2023 (Patient Refus ed) Start: 04-18-2024 End: 04-18-2024 Patient encounter procedure Radiology Comment on above: Right hip Right Hip pain, Start: 04-17-2024 End: 04-17-2024 ambulatory 04/17/2024 10:15 AM EDT OT/PT/Speech Visit Physical Therapy [address] [place] [address] Beena Gallardo, PT [address] [place] [address] R25.1 (ICD-10-CM) - Tremor, unspecified Physical Therapy Comment on above: R25.1 (ICD-10-CM) - Tremor, unspecified Start: 04-08-2024 End: 04-08-2024 Patient encounter procedure 04/08/2024 11:30 AM EDT Office Visit Cardiology [address] [place], [place] [id number] Radha Zaragoza, PROGRAM ATTENDANT.BOAT CANVAS MAKER INSTALLER [address] [place], [place] [id number] hospital follow up Cardiology Comment on above: hospital follow up Start: 03-28-2024 End: 03-28-2024 ambulatory 03/28/2024 9:45 AM EDT Results Only formerly [facility] [address] [place] [address] Labs formerly [facility] Comment on above: Labs Start: 03-28-2024 End: 03-28-2024 Follow-up encounter 03/28/2024 8:15 AM EDT OT/PT/Speech Visit Physical Therapy [address] [facility] [place] [address] Beena Gallardo, PT [address] [place] [address] 2 week Follow up (around 03/29/24) Physical Therapy Comment on above: 2 week Follow up (around 03/29/24) Start: 03-25-2024 End: 06-24-2024 Basic metabolic 2000 panel - Serum or Plasma BASIC METABOLIC PANEL Lab Routine Hypokalemia Expected: 03/25/2024 (Approximate), Expires: 06/24/2024 [facility] Work Phone: Comment on above: Expected: 03/25/2024 (Approximate), Expi res: 06/24/2024 Start: 03-18-2024 End: 03-18-2024 Nursing evaluation of patient and report 03/18/2024 2:30 PM EDT Nurse Visit Cardiology [address] [place], [place] [id number] , Nurse Card [place] [address] [place], [place] [id number] follow-up cxr, lab work, CHF check. See phone encounter Cardiology Comment on above: follow-up cxr, lab work, CHF check. See phone encounter Start: 03-15-2024 End: 03-15-2024 ambulatory 03/15/2024 12:00 PM EDT OT/PT/Speech Visit Physical Therapy [address] [facility] [place] [address] Beena Gallardo, PT [address] [place] [address] Diagnosis Physical Therapy Comment on above: Diagnosis Start: 03-12-2024 End: 03-12-2024 Patient encounter procedure 03/12/2024 2:00 PM EDT Office Visit Neurology [address] [place] [address] [place] [address] [place] [address] Follow Up Neurology Comment on above: Follow Up Start: 03-04-2024 End: 03-04-2024 ambulatory Physical Therapy Comment on above: I diagnoses AUTH OK Start: 03-01-2024 End: 03-01-2024 Patient encounter procedure 03/01/2024 2:30 PM EDT Office Visit Cardiology [address] [place] [address] Chrissy stress test Cardiology Comment on above: Chrissy stress test Start: 03-01-2024 End: 03-01-2024 Patient encounter procedure 03/01/2024 12:30 PM EDT Office Visit Cardiology [address] [place] [address] Chrissy stress test Cardiology Comment on above: Chrissy stress test Start: 02-29-2024 End: 02-29-2024 Patient encounter procedure 02/29/2024 8:00 AM EDT OT/PT/Speech Visit [facility] Physical Therapy [address] [place] [address] Nikolas Soto PT FND [facility] Physical Therapy Comment on above: FND Start: 02-26-2024 End: 05-27-2024 Basic metabolic 2000 panel - Serum or Plasma BASIC METABOLIC PANEL Lab Routine Paroxysmal supraventricular tachycardia (HCC) Expected: 02/26/2024 (Approximate), Expires: 05/27/2024 [facility] Work Phone: Comment on above: Expected: 02/26/2024 (Approximate), Expi res: 05/27/2024 Start: 02-20-2024 End: 02-20-2024 Patient encounter procedure 02/20/2024 1:30 PM EDT Office Visit [facility] [address] [place] [address] Kyle Amin MD [address] [place] [address] [facility] Start: 12-12-2023 End: 12-12-2023 Patient encounter procedure 12/12/2023 3:00 PM EST Office Visit [facility] [address] [place] [id number] Kyle Amin MD [address] [place] [address] [facility] Start: 12-08-2023 Bacteria identified in Urine by Culture [facility] Start: 12-04-2023 [facility] Start: 11-30-2023 Referral to neurologist [facility] Start: 11-30-2023 Hospital admission [facility] Start: 11-30-2023 [facility] Start: 11-16-2023 [facility] Start: 11-15-2023 Physical therapy procedure [facility] Start: 11-15-2023 Referral to occupational therapist [facility] Start: 11-15-2023 Hospital admission [facility] Start: 11-15-2023 Referral to speech and language therapy service [facility] Start: 11-15-2023 [facility] Start: 10-30-2023 Advance Directive Discussion Advance Directive Discussion [facility] Start: 10-30-2023 Behavioral Health Screening Behavioral Health Screening [facility] Start: 10-30-2023 Depression Assessment Depression Assessment [facility] Start: 10-20-2023 Lipid panel [facility] Start: 10-20-2023 End: 10-20-2023 [facility] Start: 10-19-2023 Hospital admission [facility] Start: 10-19-2023 MRI of head MR head/brain wo con [facility] Start: 10-19-2023 Physical therapy procedure [facility] Start: 10-19-2023 Referral to neurologist [facility] Start: 10-19-2023 Referral to occupational therapist [facility] Start: 10-19-2023 Referral to speech and language therapy service [facility] Start: 10-19-2023 [facility] Start: 10-19-2023 Bacteria identified in Urine by Culture [facility] Start: 10-19-2023 Urine culture Urine Culture [facility] Start: 06-30-2023 Covid-19 Vaccine () Covid-19 Vaccine () [facility] Start: 06-30-2023 Influenza vaccination [facility] Start: 04-26-2023 End: 06-26-2023 Methylmalonate [Moles/volume] in Serum or Plasma METHYLMALONIC ACID Lab Routine Low vitamin B12 level Expected: 04/26/2023, Expires: 06/26/2023 [facility] Work Phone: Comment on above: Expected: 04/26/2023, Expires: 3 Start: 04-18-2023 End: 06-18-2023 C reactive protein [Mass/volume] in Serum or Plasma C-REACTIVE PROTEIN (CRP) Lab Routine Memory loss Expected: 04/18/2023, Expires: 06/18/2023 [facility] Work Phone: Comment on above: Expected: 04/18/2023, Expires: 3 Start: 04-18-2023 End: 06-18-2023 Cobalamin (Vitamin B12) [Mass/volume] in Serum or Plasma VITAMIN B12 BLOOD Lab Routine Memory loss Expected: 04/18/2023, Expires: 06/18/2023 [facility] Work Phone: Comment on above: Expected: 04/18/2023, Expires: 3 Start: 04-18-2023 End: 06-18-2023 Erythrocyte sedimentation rate SED RATE WESTERGREN Lab Routine Memory loss Expected: 04/18/2023, Expires: 06/18/2023 [facility] Work Phone: Comment on above: Expected: 04/18/2023, Expires: 3 Start: 04-18-2023 End: 06-18-2023 Folate [Mass/volume] in Serum or Plasma FOLATE SERUM Lab Routine Memory loss Expected: 04/18/2023, Expires: 06/18/2023 [facility] Work Phone: Comment on above: Expected: 04/18/2023, Expires: 3 Start: 04-18-2023 End: 06-18-2023 Thyrotropin [Units/volume] in Serum or Plasma TSH BLD Lab Routine Memory loss Expected: 04/18/2023, Expires: 06/18/2023 [facility] Work Phone: Comment on above: Expected: 04/18/2023, Expires: 3 Start: 10-30-2022 ADVANCE DIRECTIVE DISCUSSION ADVANCE DIRECTIVE DISCUSSION [facility] Start: 10-30-2022 DEPRESSION ASSESSMENT DEPRESSION ASSESSMENT [facility] Start: 06-30-2022 Influenza vaccination [facility] Start: 05-31-2022 FUV, Provider: Lico Siu, Status: Broderick, Time: 10:40 AM FUV, Provider: Lico Siu, Status: Broderick, Time: 10:[address] [facility] 250 DO Work Phone: Start: 04-11-2022 End: 06-11-2022 ACETYLCHO R MOD AB [facility] Work Phone: Comment on above: Expected: 04/11/2022, Expires: 2 Start: 04-11-2022 End: 06-11-2022 ACETYLCHOLINE REC BINDING AB [facility] Work Phone: Comment on above: Expected: 04/11/2022, Expires: 2 Start: 04-11-2022 End: 06-11-2022 ACETYLCHOLINE REC BLOCKING AB [facility] Work Phone: Comment on above: Expected: 04/11/2022, Expires: 2 Start: 12-12-2021 COVID-19 VACCINE (4 - Booster for Pfizer series) COVID-19 VACCINE (4 - Booster for Pfizer series) [facility] Start: 12-01-2021 FUV, Provider: Lico Siu, Status: Pen, Time: 10:00 AM FUV, Provider: Lico Siu, Status: Pen, Time: 10:00 AM [facility] 250 DO Work Phone: Start: 11-24-2021 STRESS NUC, Provider: [place] SHOOKI NUCLEAR 01,[id number], Status: Pen, Time: 12:00 PM STRESS NUC, Provider: [place] HHVI NUCLEAR 01,[id number], Status: Pen, Time: 12:00 PM [facility] Work Phone: Start: 10-30-2021 ADVANCE DIRECTIVE DISCUSSION ADVANCE DIRECTIVE DISCUSSION [facility] Start: 10-30-2021 DEPRESSION ASSESSMENT DEPRESSION ASSESSMENT [facility] Start: 10-28-2021 Creatinine measurement Creatinine monitoring [place], [place] Start: 10-28-2021 Hepatitis B surface antibody level LDL Cholesterol [facility] Start: 10-28-2021 Potassium monitoring Potassium monitoring [place], [place] Start: 10-06-2021 COVID-19 VACCINE (4 - Booster for Pfizer series) COVID-19 VACCINE (4 - Booster for Pfizer series) [facility] Start: 10-06-2021 COVID-19 VACCINE (4 - Pfizer series) COVID-19 VACCINE (4 - Pfizer series) [facility] Start: 10-28-2020 Annual Wellness Visit (AWV) Annual Wellness Visit (AWV) [place], [place] Start: 06-30-2020 Influenza vaccination Flu vaccine (#1) [place] Start: 08-09-2015 DIABETES SCREEN DIABETES SCREEN [facility] Start: 2015 RSV Vaccine (1 - 1-dose 75+ series) RSV Vaccine (1 - 1-dose 75+ series) [facility] Start: 01-22-2015 Administration of varicella zoster vaccine Zoster (Shingles) Vaccine (2 of 3) [facility] Start: 01-22-2015 Shingrix Vaccine (2 of 3) Shingrix Vaccine (2 of 3) [facility] Start: 03-13-2013 Hepatitis B surface antibody level LDL CHOLESTEROL [facility] Start: 2005 BONE DENSITY BONE DENSITY [facility] Start: 2005 Bone Density Screening Bone Density Screening [facility] Start: 2005 Fall Risk Screening Fall Risk Screening [facility] Start: 2005 Pneumococcal 65+ years Vaccine (1 of 1 - PPSV23) Pneumococcal 65+ years Vaccine (1 of 1 - PPSV23) [place] Start: 2005 PNEUMOCOCCAL: 65+ (1 - PCV) PNEUMOCOCCAL: 65+ (1 - PCV) [facility] Start: 2005 Screening for osteoporosis Bone Density Screening [facility] Start: 2000 RSV Vaccine (1 - 1-dose 60+ series) RSV Vaccine (1 - 1-dose 60+ series) [facility] Start: 1995 Screening for osteoporosis DEXA (modify frequency per FRAX score) [place], [place] Start: 1990 Shingles Vaccine (1 of 2) Shingles Vaccine (1 of 2) [place] Start: 1990 SHINGRIX VACCINE (1 of 2) SHINGRIX VACCINE (1 of 2) [facility] Start: 1959 DTaP,Tdap and Td Vaccines (1 - Tdap) DTaP,Tdap and Td Vaccines (1 - Tdap) [facility] Start: 1959 DTaP/Tdap/Td vaccine (1 - Tdap) DTaP/Tdap/Td vaccine (1 - Tdap) [place] Start: 1959 Urine microalbumin profile [facility] Start: 1958 Adult BMI Follow Up Plan Adult BMI Follow Up Plan [facility] Start: 1958 Anxiety Screening Anxiety Screening [facility] Start: 1958 Depression Screening Depression Screening [facility] Start: 1952 Depression Screening Depression Screening [facility] Start: 1940 Medicare Annual Wellness (AWV) Medicare Annual Wellness (AWV) [facility] Start: 1940 Medicare Annual Wellness Visit Medicare Annual Wellness Visit [facility] End: 10-29-2020 Basic metabolic 2000 panel Basic Metabolic Panel Lab Timed One Time for 1 Occurrences starting 10/29/2020 until 10/29/2020 [place] Comment on above: One Time for 1 Occurrences starting 10/01 until 10/29/2020 CBC CBC Lab Routine Every Other Day until discontinued starting 10/29/2020, 1 completed [email or web address] Comment on above: Every Other Day until discontinued start ing 10/29/2020, 1 completed End: 07-18-2025 DXA Skeletal system.axial Views for bone density DXA-AXIAL SKELETON Radiology Routine Chronic bilateral low back pain with right-sided sciatica 1 Occurrences starting 06/18/2024 until 07/18/2025 [facility] Work Phone: Comment on above: 1 Occurrences starting 06/18/2024 until 07/18/2025 ECG COMPLETE ECG COMPLETE ECG 02/12/2024 11:25 AM EDT [facility] End: 12-15-2023 Echocardiography ECHO Cardiology Routine 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, unspecified vessel or lesion type (HCC) Edema leg SOB (shortness of breath) 1 Occurrences starting 12/15/2022 until 12/15/2023 [facility] Work Phone: Comment on above: 1 Occurrences starting 12/15/2022 until 12/15/2023 End: 12-12-2024 EEG MONITORING ADULT EMU (24 HOUR WITH VIDEO) EEG MONITORING ADULT EMU (24 HOUR WITH VIDEO) NEUROLOGY Routine Tremor Speech disturbance, unspecified type 1 Occurrences starting 12/12/2023 until 12/12/2024 [facility] Work Phone: Comment on above: 1 Occurrences starting 12/12/2023 until 12/12/2024 EKG 12 lead EKG 12 lead ECG Routine As Needed until discontinued starting 10/27/2020 [email or web address] Comment on above: As Needed until discontinued starting End: 12-13-2024 EPIL EEG LEAD PLACEMENT EPIL EEG LEAD PLACEMENT NEUROLOGY Routine Tremor Speech disturbance, unspecified type 1 Occurrences starting 12/13/2023 until 12/13/2024 [facility] Work Phone: Comment on above: 1 Occurrences starting 12/13/2023 until 12/13/2024 EPIL VEEG ADMIT TO EMU/PMU EPIL VEEG ADMIT TO EMU/PMU NEUROLOGY Routine Tremor Speech disturbance, unspecified type Ordered: 12/13/2023 [facility] Work Phone: Comment on above: Ordered: 12/13/2023 End: 10-29-2020 Magnesium [Mass/Vol] Magnesium Lab Timed One Time for 1 Occurrences starting 10/29/2020 until 10/29/2020 [facility] [place], [place] Comment on above: One Time for 1 Occurrences starting 10/01 until 10/29/2020 End: 06-16-2025 MR Lumbar spine WO contrast MRI LUMBAR SPINE WO IVCON Radiology Routine Other fracture of unspecified lumbar vertebra, initial encounter for closed fracture (HCC) 1 Occurrences starting 05/17/2024 until 06/16/2025 [facility] Work Phone: Comment on above: 1 Occurrences starting 05/17/2024 until 06/16/2025 MR Lumbar spine WO contrast MRI LUMBAR SPINE WO IVCON Radiology Routine Other fracture of unspecified lumbar vertebra, initial encounter for closed fracture (HCC) 05/17/2024 4:09 PM EDT [facility] End: 06-23-2023 Mri brain brain stem w/o contrast material MRI BRAIN WO IVCON Radiology Routine Diplopia 1 Occurrences starting 05/24/2022 until 06/23/2023 [facility] Work Phone: Comment on above: 1 Occurrences starting 05/24/2022 until 06/23/2023 End: 06-19-2023 NM CARDIAC PERF STRESS/PHARM NM CARDIAC PERF STRESS/PHARM Radiology Routine Clear Outcomes Study, PI: Eva Fischer MD 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, unspecified vessel or lesion type ([facility]) 1 Occurrences starting 05/20/2022 until 06/19/2023 [facility] Work Phone: Comment on above: 1 Occurrences starting 05/20/2022 until 06/19/2023 NM CARDIAC PERF STRESS/PHARM NM CARDIAC PERF STRESS/PHARM Radiology Routine Clear Outcomes Study, PI: Eva Fischer MD 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, unspecified vessel or lesion type (HCC) Edema leg SOB (shortness of breath) 12/15/2022 1:44 PM EST [facility] Work Phone: XR Chest PA and Lateral XR CHEST 2V FRONTAL/LAT Radiology Routine SOB (shortness of breath) 03/07/2024 2:29 PM EDT [facility] Work Phone: End: 05-18-2025 XR Pelvis and Hip - right AP and Lateral frog XR HIP GENERAL 3V PELV/AP/LAT RIGHT Radiology Routine Pain 1 Occurrences starting 04/18/2024 until 05/18/2025 [facility] Work Phone: Comment on above: 1 Occurrences starting 04/18/2024 until 05/18/2025 [facility] Immunizations Immunization Date Immunization Notes Care Provider aWde coats 08-11-2021 Pfizer-BioNTech COVI D-19 Vacc 30 MCG/0.3ML Intramuscular Suspension Kyle Amin Work Phone: [place] [address] DO Work Phone: 12-12-2020 Pfizer-BioNTech COVI D-19 Vacc 30 MCG/0.3ML Intramuscular Suspension Kyle Amin Work Phone: [facility] 250 DO Work Phone: 11-21-2020 Pfizer-BioNTech COVI D-19 Vacc 30 MCG/0.3ML Intramuscular Suspension Kyle Amin Work Phone: [place] [address] DO Work Phone: 10-30-2016 pneumococcal polysaccharide vaccine, 23 valent Kyle Amin Work Phone: [place] [address] [place] Work Phone: 10-10-2016 pneumococcal conjuga te vaccine, 13 valent Kyle Amin Work Phone: [facility] 09-29-2016 pneumococcal conjuga te vaccine, 13 valent Kyle Amin Work Phone: [place] [address] DO Work Phone: 11-27-2014 zoster vaccine, live Kyle Amin Work Phone: [place] [address] DO Work Phone: 11-27-2014 zoster vaccine, unspecified formulation Lisandra Guerin MD Work Phone: [employer] 10-30-2013 zoster vaccine, live Kyle Amin Work Phone: [facility] 250 DO Work Phone: Payers Date Payer Category Payer Medicare [id number] 2023 Medicaid [employer] MEDICARE A DVANTAGE [id number] 2023 Self-pay [id number] 2021 Medicare [employer] MEDICARE A ETNA MEDICARE PPO [id number] 2021-Present [phone] [address] [place] [address] O [id number] 2021 Medicare HMO [employer] MEDICARE [id number] 2021 Private Health Insurance [id number] 2015 Medicare [id number] 2015 Medicare [id number] 1959 Self-pay [id number] 1940 Unknown [id number] 2.16.840.1.238585.3.579.2. 647 1940 Unknown [id number] 2.16.840.1.861689.3.579.2. 647 1940 Unknown [id number] 2.16.840.1.196607.3.579.2. 727 1940 Unknown [id number] 2.16.840.1.471961.3.579.2. 727 1940 Unknown [id number] 2.16.840.1.034755.3.579.2. 727 1940 Unknown [id number] 2.16.840.1.429080.3.579.2. 727 1940 Unknown [id number] 2.16.840.1.326862.3.579.2. 727 1940 Unknown [id number] 2.16.840.1.426409.3.579.2. 1286 1940 Unknown [id number] 2.16.840.1.504633.3.579.2. 1286 1940 Unknown [id number] 2.16.840.1.436268.3.579.2. 1286 1940 Unknown [id number] 2.16.840.1.004958.3.579.2. 1286 1940 Unknown [id number] 2.16.840.1.686264.3.579.2. 1286 1940 Unknown [id number] 2.16.840.1.283420.3.579.2. 1286 1940 Unknown [id number] 2.16.840.1.511447.3.579.2. 1286 0 Unknown [id number] 2.16840.1.269643.3.579.2. 128 1940 Unknown [id number] 2.16840.1.543931.3.579.2. 128 1940 Unknown [id number] 2.16.840.1.610815.3.579.2. 128 1940 Unknown [id number] 2.16840.1.419932.3.579.2. 128 1940 Unknown [id number] 2.16840.1.039702.3.579.2. 128 1940 Unknown [id number] 2.16840.1.382918.3.579.2. 128 1940 Unknown [id number] 2.840.1.025413.3.579.2. 1285 1940 Unknown [id number] 2.840.1.108873.3.579.2. 128 1940 Unknown [id number] 2.840.1.908488.3.579.2. 128 1940 Unknown [id number] 2.840.1.656338.3.579.2. 128 1940 Unknown [id number] 2.840.1.838158.3.579.2. 125 1940 Unknown [id number] 2.16840.1.251277.3.579.2. 1259 1940 Unknown [id number] 125 1940 Unknown [id number]. 1259 1940 Unknown [id number]. 125 1940 Unknown [id number]. 1259 1940 Unknown [id number]. 1259 1940 Unknown [id number]. 1259 1940 Unknown [id number] [id number]. 1259 Unknown Unknown [id number]. 531 Unknown [id number]. 531 Unknown [id number]. 531 Unknown [id number]. 531 Unknown [id number]. 531 Social History Date Type Detail Facility Start: 10-28-2020 End: 06-11-2024 Tobacco smoking status NHIS Never smoker [place] Start: 10-28-2020 End: 06-11-2024 Tobacco use and exposure Never used [place] Start: 10-28-2020 Alcohol intake Lifetime non-d twyla (finding) [place] Start: 10-27-2020 History SDOH Alcohol Frequency 1 [place] Start: 1940 Sex Assigned At Not on file M [place] Start: 08-18-2020 End: 07-11-2022 Exposure to SARS-CoV-2 (event) Not sure [place] Start: 06-12-2023 End: 06-14-2024 Social alcohol use Social alcohol use [facility] Tobacco smoking status Never [facility] Start: 06-12-2023 End: 06-14-2024 Sex Assigned At Female [facility] Start: 04-11-2022 End: 07-22-2024 Alcohol intake Current drinker of alcohol (finding) [facility] Start: 09-24-2018 History SDOH Alcohol Comment wine occas [facility] Start: 1940 Sex Assigned At Female F [facility] How often to you hav e a drink containing alcohol? Monthly or less [facility] How many standard drinks containing alcohol do you have on a typical day? 1 or 2 [facility] How often do you hav e 6 or more drinks on 1 occasion? Never [facility] Start: 08-16-2023 Alcohol Comment Caffeine: Herb al Tea, coffee; on occassion [facility] Start: 10-31-2023 Gender identity Identifies as female gender (finding) [facility] Has the [employer], oil, or water company threatened to shut off services in your home in past 12Mo No [facility] (I/We) worried jessenia pfeiffer (my/our) food would run out before (I/we) got money to buy more. Never true [facility] Start: 10-19-2023 Sex Female (finding) [facility] Medical Equipment Procedure Code Equipment Code Equipment Origin al Text Equipment Identifier Dates CL CLOSURE DEVIC E EXOSEAL 6F FDA Start: 03-28-2019 CL STENT KYLEIGH 3.0 X 12 FDA Start: 03-28-2019 CL STENT KYLEIGH 3.0 X 18 FDA Start: 03-28-2019 CL CLOSURE DEVIC E EXOSEAL 6F FDA Start: 03-28-2019 CL STENT KYLEIGH 3.0 X 12 FDA Start: 03-28-2019 CL STENT KYLEIGH 3.0 X 18 FDA Start: 03-28-2019 CL CLOSURE DEVIC E EXOSEAL 6F FDA Start: 03-28-2019 CL STENT KYLEIGH 3.0 X 12 FDA Start: 03-28-2019 CL STENT KYLEIGH 3.0 X 18 FDA Start: 03-28-2019 CL CLOSURE DEVIC E EXOSEAL 6F FDA Start: 03-28-2019 CL STENT KYLEIGH 3.0 X 12 FDA Start: 03-28-2019 CL STENT KYLEIGH 3.0 X 18 FDA Start: 03-28-2019 CL CLOSURE DEVIC E EXOSEAL 6F FDA Start: 03-28-2019 CL STENT KYLEIGH 3.0 X 12 FDA Start: 03-28-2019 CL STENT KYLEIGH 3.0 X 18 FDA Start: 03-28-2019 CL CLOSURE DEVIC E EXOSEAL 6F FDA Start: 03-28-2019 CL STENT KYLEIGH 3.0 X 12 FDA Start: 03-28-2019 CL STENT KYLEIGH 3.0 X 18 FDA Start: 03-28-2019 CL CLOSURE DEVIC E EXOSEAL 6F FDA Start: 03-28-2019 CL STENT KYLEIGH 3.0 X 12 FDA Start: 03-28-2019 CL STENT KYLEIGH 3.0 X 18 FDA Start: 03-28-2019 CL CLOSURE DEVIC E EXOSEAL 6F FDA Start: 03-28-2019 CL STENT KYLEIGH 3.0 X 12 FDA Start: 03-28-2019 CL STENT KYLEIGH 3.0 X 18 FDA Start: 03-28-2019 CL CLOSURE DEVIC E EXOSEAL 6F FDA Start: 03-28-2019 CL STENT KYLEIGH 3.0 X 12 FDA Start: 03-28-2019 CL STENT KYLEIGH 3.0 X 18 FDA Start: 03-28-2019 CL CLOSURE DEVIC E EXOSEAL 6F FDA Start: 03-28-2019 CL STENT KYLEIGH 3.0 X 12 FDA Start: 03-28-2019 CL STENT KYLEIGH 3.0 X 18 FDA Start: 03-28-2019 [employer] [id number] Start: 06-25-2024 [employer] [id number] Start: 06-25-2024 [employer] 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 Hv [id number] Start: 07-23-2024 Goals Date Patient Goal Desired Activity /State Functional Status Date Assessment Result Facility 11-16-2023 Functional status Patient at Baseline [facility] Work Phone: 11-15-2023 Functional status Patient is Pro gressing Toward Baseline [facility] Work Phone: 10-19-2023 Functional status Patient Not at Baseline [facility] Work Phone: Mental Status Date Assessment Result Facility 11-16-2023 Cognitive function Cognitive Sta tus Patient at Baseline [facility] Work Phone: 11-15-2023 Cognitive function Cognitive Sta tus Patient at Baseline [facility] Work Phone: 10-19-2023 Cognitive function Cognitive Sta tus Patient at Baseline [facility] Work Phone: Clinical Notes 03-21-2019 to 12-03-2024 Telephone Encounter - Fiona Harkins MD - 12/03/2024 2:58 PM ESTTelephone Encounter - Fiona Harkins MD - 12/03/2024 2:58 PM Cely Wilkerson NP - 11/11/2024 2:00 PM EST Note Date & Type Note Facility 12-03-2024 Telephone encounter Note The enlarged heart is from the muscle being thick from your narrowed aortic valve . This is expected for this condition. I reviewed recent echo and nuclear stress test and no further testing needed. BP control and regular followup Fiona Harkins MD [facility] 12-03-2024 Miscellaneous Notes The enlarged heart is from the muscle being thick from your narrowed aortic valve . This is expected for this condition. I reviewed recent echo and nuclear stress test and no further testing needed. BP control and regular followup Fiona Harkins MD Patient calling states that while she was in [place] there was an xray done and had an incidental finding of an enlarged heart. Asking for further explanation of this as well to see if Dr Harkins would like to do any further testing? Please advise. Aracelis Cage documented in this encounter [facility] 12-03-2024 Telephone encounter Note Patient calling states that while she was in [place] there was an xray done and had an incidental finding of an enlarged heart. Asking for further explanation of this as well to see if Dr Harkins would like to do any further testing? Please advise. Aracelis Cage [facility] 11-11-2024 History of Present illness Narrative Images from the original note were not included. Yani Gerard is a 84 y.o. female presents with chief complaint of Rash (Pt was seen in the office 11/06/2024, prescribed Clobetasol. Bilateral leg rash continues but she feels is improving. She denies itching or pain. ) HPI: History of Present Illness The patient presents for evaluation of a rash on her legs. She reports an improvement in the condition of her legs following the application of a prescribed cream. She was informed that the rash might be a reaction to a lotion she had been using for an extended period for skin aging. Despite applying the same lotion to her arms, no similar reaction was observed. The rash is not associated with itching or pain but is characterized by dryness due to the absence of any topical treatment. She has not introduced any new medications, supplements, or powders into her regimen. She received a test injection for her back on 11/05/2023, which provided relief for approximately 2 hours. The onset of the rash coincided with the timing of this injection. She recalls that her ankles were red during her visit to [place] on 11/05/2023. She reports no presence of the rash on her back. She has not consulted with Dr. Perry in the past year. I have reviewed and reconciled the history and medication list with the patient today. HISTORIES: PAST MEDICAL HISTORY: Past Medical History: Diagnosis Date Age related osteoporosis, unspecified pathological fracture presence (CMS/HCC) CAD (coronary artery disease) (CMS/HCC) Diverticulitis Essential hypertension (CMS/HCC) GERD (gastroesophageal reflux disease) High blood cholesterol level (CMS/HCC) Hypercholesterolemia (CMS/HCC) Hypertension (CMS/HCC) Hypothyroid (CMS/HCC) Hypothyroidism (CMS/HCC) Melanoma (CMS/HCC) Paroxysmal supraventricular tachycardia (CMS/HCC) Post menopausal syndrome RLS (restless legs syndrome) Solitary pulmonary nodule 03/30/2023 Vitamin D deficiency SURGICAL HISTORY: Past Surgical History: Procedure Laterality Date BACK SURGERY 2014 CARDIAC CATHETERIZATION 2018 COLONOSCOPY COLONOSCOPY 05/04/2021 CORONARY ANGIOPLASTY 02/2019 PTCA with stent x [address] ANGIO HEAD 12/09/2023 CT ANGIO HEAD 12/09/2023 CT ANGIOGRAM NECK 12/09/2023 CT ANGIOGRAM NECK 12/09/2023 IR KYPHOPLASTY THORACIC 07/23/2024 IR KYPHOPLASTY THORACIC 07/23/2024 KNEE ARTHROSCOPY W/ MENISCAL REPAIR Left 2013 MOHS SURGERY Left 12/01/2022 DE CORRECTION HAMMERTOE Bilateral 2012 DE RHYTIDECTOMY CHEEK CHIN & NECK 2009 REVISION TOTAL HIP ARTHROPLASTY SKIN CANCER EXCISION TOTAL HIP ARTHROPLASTY Right 01/05/2021 TOTAL VAGINAL HYSTERECTOMY 1964 TVH Ant repair SOCIAL HISTORY: Social History Tobacco Use Smoking status: Never Smokeless tobacco: Never Vaping Use Vaping status: Never Used Substance Use Topics Alcohol use: Yes Alcohol/week: 2.0 standard drinks of alcohol Types: 2 Glasses of wine per week Comment: Caffeine: Herbal Tea, coffee; on occassion Drug use: Never Depression: Not at risk (08/28/2024) PHQ-2 PHQ-2 Score: 0 FAMILY HISTORY: Family History Adopted: Yes Problem Relation Name Age of Onset Stomach cancer Mother Heart disease Mother Other (suicide) Father Breast cancer Sister Stomach cancer Maternal Grandmother Hypertension Other Coronary artery disease Other Cancer Other Multiple myeloma Neg Hx Ovarian cancer Neg Hx Colon cancer Neg Hx MEDICATIONS: Current Outpatient Medications Medication Instructions amLODIPine (NORVASC) 10 mg, Daily ascorbic acid (VITAMIN C) 500 mg, 2 times daily ASPIRIN 81 PO 1 tablet, Daily biotin 5 MG capsule 1 capsule, Daily calcium carbonate 1500 (600 Ca) MG tablet 1 tablet, Daily clobetasol propionate (Temovate) 0.05 % emollient cream Topical, 2 times daily cyanocobalamin (VITAMIN B-12) 1,000 mcg, Daily diclofenac sodium 4 g, 4 times daily ezetimibe (ZETIA) 10 mg, Daily Pnrmotbqvch-Eufdbyfen-Pcjovi (Trelegy Ellipta) 100-62.5-25 MCG/ACT aerosol powder 1 puff, Daily PRN furosemide (LASIX) 40 mg, Oral, Daily ibuprofen 400 mg, 4 times daily isosorbide mononitrate ER (IMDUR) 30 mg, Daily levETIRAcetam (KEPPRA) 500 mg, 2 times daily levothyroxine (SYNTHROID) 50 mcg, Oral, Daily before breakfast losartan (COZAAR) 50 mg, 2 times daily magnesium oxide (MAG-OX) 400 mg, Oral, Daily methocarbamol (ROBAXIN) 750 mg, Oral, 2 times daily metoprolol succinate XL (TOPROL-XL) 25 mg, Daily omeprazole (PRILOSEC) 40 mg, Oral, Daily before breakfast ondansetron (ZOFRAN) 4 mg, Oral, Every 8 hours PRN oxybutynin XL (Ditropan-XL) 5 MG 24 hr tablet TAKE 1 TABLET DAILY potassium chloride CR (Klor-Con) 10 MEQ ER tablet 10 mEq, Oral, Daily pramipexole (MIRAPEX) 0.5 mg, Oral, 2 times daily Prolia 60 mg, Every 6 months ranolazine (RANEXA) 1,000 mg, 2 times daily Repatha 140 mg, Every 14 days trospium (Sanctura XR) 60 MG 24 hour capsule TAKE 1 CAPSULE BY MOUTH EVERY DAY AT BEDTIME ALLERGIES: Allergies Allergen Reactions Ezetimibe Other Other reaction(s): Myalgia Severe muscle pain fingers and legs, discontinued after 5 doses Severe muscle pain fingers and legs, discontinued after 5 doses Gabapentin Nausea Only, Other and GI intolerance Other reaction(s): nausea Pramipexole GI intolerance Other reaction(s): nausea/dizziness, blurry vision Ropinirole Hcl GI intolerance Other Reaction(s): nausea/dizziness, blurry vision Statins Other Other reaction(s): intolerance Other reaction(s): Other: See Comments Sulfa Antibiotics PHYSICAL EXAM: Visit Vitals BP 128/62 (BP Location: Left arm, Patient Position: Sitting) Pulse 67 Ht 5' 1 Wt 155 lb SpO2 96% BMI 29.29 kg/m Smoking Status Never BSA 1.74 m BP Readings from Last 3 Encounters: 11/11/24 128/62 11/06/24 136/72 08/28/24 112/64 Wt Readings from Last 3 Encounters: 11/11/24 155 lb 11/06/24 155 lb 4.8 oz 08/28/24 146 lb Physical Exam HENT: Mouth/Throat: Mouth: Mucous membranes are moist. Skin: General: Skin is warm and dry. Findings: Rash (bilateral lower legs) present. Neurological: Mental Status: She is alert and oriented to person, place, and time. Psychiatric: Mood and Affect: Mood normal. Thought Content: Thought content normal. Results ASSESSMENT AND PLAN: Assessment & Plan 1. Rash and nonspecific skin eruption (Primary) The etiology of the rash remains uncertain, with no new medications or supplements identified as potential causes. She thought maybe this lotion she was using for aging skin could have contributed. She was using this on her arms and legs and the rash was only on the legs. The rash does not itch or hurt and has shown some improvement. Of note it did worsen after her visit with Stevan CARROLL but then improved. Since she is not itching I will not prescribe steroids. I recommended using Aquaphor daily. She does not have swelling in her legs so this does not appear to be a venous stasis rash. A referral to dermatology will be initiated for further evaluation and management. - Ambulatory referral to Dermatology; Future 2. Degeneration of intervertebral disc of lumbar region with discogenic back pain She had injection the day before the rash occurred. She did not have a rash anywhere else besides her legs. She reports only 2 hours of relief from injection and this was done to consider an ablation. documented in this encounter [facility] 11-06-2024 History of Present illness Narrative Images from the original note were not included. Yani Gerard is a 84 y.o. female presents with chief complaint of Rash (Patient is here today with complaints of rash on bilateral lower extremities that began 3 days ago. ) HPI: HPI History of Present Illness Pt. Here for bilateral lower leg rash that started a few days ago. She did get new boots and has noticed since then that her legs have a red rash, but not itchy. She is washing her clothes in oxy clean. She uses Urdu Spring soap. She hasn't tried any OTC meds or ointments. I have reviewed and reconciled the history and medication list with the patient today. HISTORIES: PAST MEDICAL HISTORY: Past Medical History: Diagnosis Date Age related osteoporosis, unspecified pathological fracture presence (CMS/HCC) CAD (coronary artery disease) (CMS/HCC) Diverticulitis Essential hypertension (CMS/HCC) GERD (gastroesophageal reflux disease) High blood cholesterol level (CMS/HCC) Hypercholesterolemia (CMS/HCC) Hypertension (CMS/HCC) Hypothyroid (CMS/HCC) Hypothyroidism (CMS/HCC) Melanoma (CMS/HCC) Paroxysmal supraventricular tachycardia (CMS/HCC) Post menopausal syndrome RLS (restless legs syndrome) Solitary pulmonary nodule 03/30/2023 Vitamin D deficiency SURGICAL HISTORY: Past Surgical History: Procedure Laterality Date BACK SURGERY 2015 CARDIAC CATHETERIZATION 2018 COLONOSCOPY COLONOSCOPY 05/04/2021 CORONARY ANGIOPLASTY 02/2019 PTCA with stent x [address] ANGIO HEAD 12/09/2023 CT ANGIO HEAD 12/09/2023 CT ANGIOGRAM NECK 12/09/2023 CT ANGIOGRAM NECK 12/09/2023 IR KYPHOPLASTY THORACIC 07/23/2024 IR KYPHOPLASTY THORACIC 07/23/2024 KNEE ARTHROSCOPY W/ MENISCAL REPAIR Left 2014 MOHS SURGERY Left 12/01/2022 DE CORRECTION HAMMERTOE Bilateral 2012 DE RHYTIDECTOMY CHEEK CHIN & NECK 2009 REVISION TOTAL HIP ARTHROPLASTY SKIN CANCER EXCISION TOTAL HIP ARTHROPLASTY Right 01/05/2021 TOTAL VAGINAL HYSTERECTOMY 1964 TVH Ant repair SOCIAL HISTORY: Social History Tobacco Use Smoking status: Never Smokeless tobacco: Never Vaping Use Vaping status: Never Used Substance Use Topics Alcohol use: Yes Alcohol/week: 2.0 standard drinks of alcohol Types: 2 Glasses of wine per week Comment: Caffeine: Herbal Tea, coffee; on occassion Drug use: Never Depression: Not at risk (08/28/2024) PHQ-2 PHQ-2 Score: 0 FAMILY HISTORY: Family History Adopted: Yes Problem Relation Name Age of Onset Stomach cancer Mother Heart disease Mother Other (suicide) Father Breast cancer Sister Stomach cancer Maternal Grandmother Hypertension Other Coronary artery disease Other Cancer Other Multiple myeloma Neg Hx Ovarian cancer Neg Hx Colon cancer Neg Hx MEDICATIONS: Current Outpatient Medications Medication Instructions amLODIPine (NORVASC) 10 mg, Daily ascorbic acid (VITAMIN C) 500 mg, 2 times daily ASPIRIN 81 PO 1 tablet, Daily biotin 5 MG capsule 1 capsule, Daily calcium carbonate 1500 (600 Ca) MG tablet 1 tablet, Daily cyanocobalamin (VITAMIN B-12) 1,000 mcg, Daily diclofenac sodium 4 g, 4 times daily ezetimibe (ZETIA) 10 mg, Daily Mgyutpxfcen-Qptgmeczr-Fuxmju (Trelegy Ellipta) 100-62.5-25 MCG/ACT aerosol powder 1 puff, Daily PRN furosemide (LASIX) 40 mg, Oral, Daily ibuprofen 400 mg, 4 times daily isosorbide mononitrate ER (IMDUR) 30 mg, Daily levETIRAcetam (KEPPRA) 500 mg, 2 times daily levothyroxine (SYNTHROID) 50 mcg, Oral, Daily before breakfast losartan (COZAAR) 50 mg, 2 times daily magnesium oxide (MAG-OX) 400 mg, Oral, Daily methocarbamol (ROBAXIN) 750 mg, Oral, 2 times daily metoprolol succinate XL (TOPROL-XL) 25 mg, Daily omeprazole (PRILOSEC) 40 mg, Oral, Daily before breakfast ondansetron (ZOFRAN) 4 mg, Oral, Every 8 hours PRN oxybutynin XL (Ditropan-XL) 5 MG 24 hr tablet TAKE 1 TABLET DAILY potassium chloride CR (Klor-Con) 10 MEQ ER tablet 10 mEq, Oral, Daily pramipexole (MIRAPEX) 0.5 mg, Oral, 2 times daily Prolia 60 mg, Every 6 months ranolazine (RANEXA) 1,000 mg, 2 times daily Repatha 140 mg, Every 14 days trospium (Sanctura XR) 60 MG 24 hour capsule TAKE 1 CAPSULE BY MOUTH EVERY DAY AT BEDTIME ALLERGIES: Allergies Allergen Reactions Ezetimibe Other Other reaction(s): Myalgia Severe muscle pain fingers and legs, discontinued after 5 doses Severe muscle pain fingers and legs, discontinued after 5 doses Gabapentin Nausea Only, Other and GI intolerance Other reaction(s): nausea Pramipexole GI intolerance Other reaction(s): nausea/dizziness, blurry vision Ropinirole Hcl GI intolerance Other Reaction(s): nausea/dizziness, blurry vision Statins Other Other reaction(s): intolerance Other reaction(s): Other: See Comments Sulfa Antibiotics PHYSICAL EXAM: Visit Vitals BP 136/72 Pulse 64 Ht 5' 1 Wt 155 lb 4.8 oz SpO2 95% BMI 29.34 kg/m Smoking Status Never BSA 1.74 m BP Readings from Last 3 Encounters: 11/06/24 136/72 08/28/24 112/64 07/16/24 118/68 Wt Readings from Last 3 Encounters: 11/06/24 155 lb 4.8 oz 08/28/24 146 lb 07/16/24 165 lb Physical Exam Constitutional: Appearance: Normal appearance. She is not ill-appearing. Skin: General: Skin is warm and dry. Neurological: Mental Status: She is oriented to person, place, and time. Psychiatric: Mood and Affect: Mood normal. Thought Content: Thought content normal. Judgment: Judgment normal. Results ASSESSMENT AND PLAN: Assessment & Plan 1. Rash and nonspecific skin eruption (Primary) -Avoid perfumed soaps, laundry detergents & fabric softeners. No perfumes. Use Dove for sensitive skin, no dryer sheets, use ALL, CHEER or TIDE free and clear laundry detergents and Free and clear fabric softeners. Use a lotion that is paraban free and dermatogist tested that is perfume free such as Eucerin, Cetaphil, Lubriderm, etc. - clobetasol propionate (Temovate) 0.05 % emollient cream; Apply topically 2 (two) times a day Dispense: 30 g; Refill: 0 -will call in 2 weeks re: rash, if not improved, will need DERM referral for biopsy. documented in this encounter [facility] 10-21-2024 Telephone encounter Note Patient has been identified by name and date of : Yes Pharmacy electronically sent a request for the following prescription(s) If there are any questions regarding this prescription request, call at home at: [phone] (home) [phone] (work) [phone] (cell) RX INSTRUCTIONS: Patient aware RX will be sent to pharmacy. No need to notify patient. Date of last office visit: 05/29/2024 Date of last [facility] visit: Visit date not found Date of future office visit: 12/18/2024 Requested Prescriptions Pending Prescriptions Disp Refills isosorbide mononitrate ER (IMDUR) 30 mg 24 hr tablet [Pharmacy Med Name: isosorbide mononitrate ER 30 mg tablet,extended release 24 hr] 90 tablet 3 Sig: TAKE 1 TABLET BY MOUTH EVERY DAY Prescriptions are usually addressed within 24-48 business hours. If patient states they cannot wait 24-48 business hours, please document details. Last 2 Encounter Wt Readings: Date: Wt: 06/18/2024 70.4 kg (155 lb 3.3 oz) 06/12/2024 71.6 kg (157 lb 13.6 oz) Last 2 Encounter BP Readings: Date: BP: 06/18/2024 172/67 06/12/2024 153/59 CMP: Glucose 112 05/29/2024 BUN 15 05/29/2024 Creatinine 0.66 05/29/2024 Sodium 138 05/29/2024 Potassium 4.0 05/29/2024 Chloride 99 05/29/2024 CO2 28 05/29/2024 Protein, Total 6.6 05/29/2024 Albumin 4.1 05/29/2024 Calcium 9.0 05/29/2024 Alkaline Phosphatase 132 05/29/2024 Bilirubin, Total 0.2 05/29/2024 AST 11 05/29/2024 ALT 14 05/29/2024 Cholesterol, Total (mg/dL) Date Value 12/09/2023 155 03/13/2012 290 05/14/2009 318 HDL Cholesterol (mg/dL) Date Value 12/09/2023 58 03/13/2012 54 05/14/2009 54 LDL Cholesterol (mg/dL) Date Value 12/09/2023 50 LDL Calculated (mg/dL) Date Value 03/13/2012 186 05/14/2009 210 Triglyceride (mg/dL) Date Value 12/09/2023 235 03/13/2012 251 05/14/2009 268 Deandre Santos MA [facility] 10-21-2024 Miscellaneous Notes Patient has been identified by name and date of : Yes Pharmacy electronically sent a request for the following prescription(s) If there are any questions regarding this prescription request, call at home at: [phone] (home) [phone] (work) [phone] (cell) RX INSTRUCTIONS: Patient aware RX will be sent to pharmacy. No need to notify patient. Date of last office visit: 05/29/2024 Date of last [facility] visit: Visit date not found Date of future office visit: 12/18/2024 Requested Prescriptions Pending Prescriptions Disp Refills isosorbide mononitrate ER (IMDUR) 30 mg 24 hr tablet [Pharmacy Med Name: isosorbide mononitrate ER 30 mg tablet,extended release 24 hr] 90 tablet 3 Sig: TAKE 1 TABLET BY MOUTH EVERY DAY Prescriptions are usually addressed within 24-48 business hours. If patient states they cannot wait 24-48 business hours, please document details. Last 2 Encounter Wt Readings: Date: Wt: 06/18/2024 70.4 kg (155 lb 3.3 oz) 06/12/2024 71.6 kg (157 lb 13.6 oz) Last 2 Encounter BP Readings: Date: BP: 06/18/2024 172/67 06/12/2024 153/59 CMP: Glucose 112 05/29/2024 BUN 15 05/29/2024 Creatinine 0.66 05/29/2024 Sodium 138 05/29/2024 Potassium 4.0 05/29/2024 Chloride 99 05/29/2024 CO2 28 05/29/2024 Protein, Total 6.6 05/29/2024 Albumin 4.1 05/29/2024 Calcium 9.0 05/29/2024 Alkaline Phosphatase 132 05/29/2024 Bilirubin, Total 0.2 05/29/2024 AST 11 05/29/2024 ALT 14 05/29/2024 Cholesterol, Total (mg/dL) Date Value 12/09/2023 155 03/13/2012 290 05/14/2009 318 HDL Cholesterol (mg/dL) Date Value 12/09/2023 58 03/13/2012 54 05/14/2009 54 LDL Cholesterol (mg/dL) Date Value 12/09/2023 50 LDL Calculated (mg/dL) Date Value 03/13/2012 186 05/14/2009 210 Triglyceride (mg/dL) Date Value 12/09/2023 235 03/13/2012 251 05/14/2009 268 Deandre Santos MA documented in this encounter [facility] 09-20-2024 History of Present illness Narrative Images from the original note were not included. [facility] [address] [place] [address], [address] [place] [address] * CHART NOTE ? 09/19/2024 Patient: Yani Gerard 1940 [id number] Physician: Beto Rocha, [employer]PLAINT Follow up, thoracic and lumbar. HISTORY OF PRESENT ILLNESS 84 yo female presents to the clinic for a follow up visit to review a recent thoracic MRI. Today, Yani reports she has a constant pain in the bilateral low back, slightly above the belt line that is increased with standing and walking, and alleviated by sitting. She denies radicular symptoms and weakness. She advises she uses a walker at times to ambulate. She also admits to urinary urgency. Denies loss of physical therapist center manager strength, saddle anesthesia, bowel dysfunction, weakness, numbness or tingling, radicular symptoms, and loss of balance. ALLERGIES Allergies Allergen Reactions Uwzkhwq-Yet-Jwj Reductase Inhibitors Sulfa (Sulfonamide Antibiotics) MEDICATIONS Current Outpatient Medications: acetaminophen (TYLENOL EXTRA STRENGTH) 500 mg tablet, Take 2 tablets (1,000 mg total) by mouth., Disp: , Rfl: amLODIPine (NORVASC) 10 mg tablet, Take 1 tablet (10 mg total) by mouth. (Patient not taking: Reported on 09/02/2024), Disp: , Rfl: ascorbic acid, vitamin C, (VITAMIN C) 100 MG tablet, Take 1 tablet (100 mg total) by mouth in the morning., Disp: , Rfl: aspirin 81 mg, Take 1 tablet (81 mg total) by mouth., Disp: , Rfl: benzonatate (TESSALON PERLES) 100 mg capsule, Take 1 capsule (100 mg total) by mouth 3 (three) times a day as needed., Disp: , Rfl: biotin 1 mg capsule, Take by mouth., Disp: , Rfl: calcium citrate (CALCITRATE) 200 mg (950 mg) tablet, Take 3 tablets (600 mg total) by mouth., Disp: , Rfl: cefDINIR (OMNICEF) 300 mg capsule, Take 1 capsule (300 mg total) by mouth., Disp: , Rfl: CEPHalexin (KEFLEX) 500 mg capsule, TAKE 1 CAPSULE BY MOUTH TWICE DAILY FOR 7 (SEVEN) DAYS (Patient not taking: Reported on 09/02/2024), Disp: , Rfl: cholecalciferol, vitamin D3, (VITAMIN D3) 5,000 units capsule, Take 1 capsule (5,000 Units total) by mouth., Disp: , Rfl: ciprofloxacin HCl (CIPRO) 250 mg tablet, , Disp: , Rfl: clonazePAM (KlonoPIN) 0.5 mg tablet, Take 1 tablet (0.5 mg total) by mouth once daily at bedtime., Disp: , Rfl: clopidogreL (PLAVIX) 75 mg tablet, Take 1 tablet (75 mg total) by mouth., Disp: , Rfl: cyanocobalamin 1000 MCG tablet, Take 1 tablet (1,000 mcg total) by mouth in the morning., Disp: , Rfl: cyclobenzaprine (FLEXERIL) 5 mg tablet, Take 1 tablet (5 mg total) by mouth 3 (three) times a day as needed., Disp: , Rfl: diclofenac sodium (VOLTAREN) 1 % gel, Apply 4 g topically in the morning and 4 g at noon and 4 g in the evening and 4 g before bedtime., Disp: , Rfl: DOCOSAHEXAENOIC ACID ORAL, Take by mouth., Disp: , Rfl: evolocumab (REPATHA SURECLICK) 140 mg/mL pen injector, INJECT 140mg EVERY 2 (TWO) weeks, Disp: , Rfl: ezetimibe (ZETIA) 10 mg tablet, Take 1 tablet (10 mg total) by mouth., Disp: , Rfl: furosemide (LASIX) 40 mg tablet, Take 1 tablet (40 mg total) by mouth 2 (two) times a day., Disp: , Rfl: ibuprofen (ADVIL,MOTRIN) 200 mg tablet, Take 2 tablets (400 mg total) by mouth in the morning and 2 tablets (400 mg total) at noon and 2 tablets (400 mg total) in the evening and 2 tablets (400 mg total) before bedtime., Disp: , Rfl: ibuprofen (MOTRIN) 800 mg tablet, Take 1 tablet (800 mg total) by mouth every 6 (six) hours as needed., Disp: , Rfl: isosorbide mononitrate (IMDUR) 30 mg 24 hr tablet, Take 1 tablet (30 mg total) by mouth., Disp: , Rfl: levETIRAcetam (KEPPRA) 500 mg tablet, Twice daily (Patient not taking: Reported on 09/02/2024), Disp: , Rfl: losartan (COZAAR) 25 mg tablet, Take 1 tablet (25 mg total) by mouth., Disp: , Rfl: magnesium 200 mg tablet, Take 400 mg by mouth in the morning., Disp: , Rfl: magnesium aspart,citrate,oxide 400 mg magnesium capsule, 1 (one) time each day at the same time., Disp: , Rfl: magnesium oxide (MAGOX) 400 mg tablet, Take 1 tablet (400 mg total) by mouth., Disp: , Rfl: mecobalamin, vitamin B12, 1,000 mcg tablet,chewable, Daily, Disp: , Rfl: meloxicam (MOBIC) 7.5 mg tablet, TAKE 1 TABLET BY MOUTH EVERY DAY for 14 days, Disp: , Rfl: methocarbamoL (ROBAXIN) 750 mg tablet, Take 1 tablet (750 mg total) by mouth every 6 (six) hours as needed., Disp: , Rfl: methylPREDNISolone (MEDROL, SARA,) 4 mg tablet, follow package directions, Disp: 21 tablet, Rfl: 0 metoprolol succinate XL (TOPROL XL) 25 mg 24 hr tablet, Take 2 tablets (50 mg total) by mouth., Disp: , Rfl: nitrofurantoin, macrocrystal-monohydrate, (MACROBID) 100 mg capsule, Apply 1 capsule (100 mg total) to the mouth or throat., Disp: , Rfl: nitroglycerin (NITROSTAT) 0.4 MG SL tablet, See administration instructions., Disp: , Rfl: omeprazole (PriLOSEC) 40 mg capsule, TAKE 1 CAPSULE BY MOUTH ONCE DAILY 30 MINUTES before morning meal, Disp: , Rfl: ondansetron (ZOFRAN) 4 mg tablet, TAKE 2 TABLETS BY MOUTH TWICE DAILY as directed for 14 days, Disp: , Rfl: ondansetron ODT (ZOFRAN ODT) 4 mg disintegrating tablet, Dissolve 1 tablet (4 mg total) on tongue 3 (three) times a day as needed., Disp: , Rfl: oxyCODONE (ROXICODONE) 5 mg immediate release tablet, TAKE 1 TABLET BY MOUTH EVERY 4 HOURS NEEDED FOR SEVERE PAIN, Disp: , Rfl: phenazopyridine (PYRIDIUM) 100 mg tablet, TAKE 1 TABLET AFTER MEALS BY MOUTH THREE TIMES DAILY (Patient not taking: Reported on 09/02/2024), Disp: , Rfl: polyethylene glycol (GLYCOLAX) 17 gram/dose powder, polyethylene glycol 3350 17 gram oral powder packet mix and TAKE 1 PACKET EVERY DAY FOR 14 DAYS, Disp: , Rfl: polyethylene glycol-electrolytes (NULYTELY) 420 gram solution, See Admin Instructions. (Patient not taking: Reported on 09/02/2024), Disp: , Rfl: potassium chloride (K-TAB,KLOR-CON) 10 MEQ CR tablet, Take 1 tablet (10 mEq total) by mouth in the morning., Disp: , Rfl: potassium chloride (KLOR-CON M 20) 20 MEQ CR tablet, Take 1 tablet (20 mEq total) by mouth in the morning., Disp: , Rfl: pramipexole (MIRAPEX) 0.5 mg tablet, Take 1 tablet (0.5 mg total) by mouth., Disp: , Rfl: ranolazine (RANEXA) 1,000 mg 12 hr tablet, Take 1 tablet (1,000 mg total) by mouth., Disp: , Rfl: SYNTHROID 50 mcg tablet, , Disp: , Rfl: triamcinolone (KENALOG) 0.1 % cream, APPLY TO THE AFFECTED AREA(S) TWICE DAILY NEEDED (Patient not taking: Reported on 09/02/2024), Disp: , Rfl: trospium (SANCTURA XR) 60 mg capsule,extended release 24hr, TAKE 1 CAPSULE BY MOUTH EVERY DAY AT BEDTIME (Patient not taking: Reported on 09/02/2024), Disp: , Rfl: VITAL SIGNS There were no vitals taken for this visit. PHYSICAL EXAMINATION Alert Oriented No percussion tenderness along spine Absent Lhermitte's Absent Spurling ROM of the neck is normal No weakness No pathological reflexes No atrophy No fasciculations Sensation to light touch is normal in aguiar dermatomes Gait is within normal limits JOHNNY is negative SLR is negative MRI / IMAGES Thoracic MRI without contrast 09/19/24 Kyphoplasty at T10,11, and 12. Minimal disc bulging without significant stenosis. IMPRESSION / PLAN 84 yo female presents to the clinic for a follow up visit to review a recent thoracic MRI. Today, Yani reports she has a constant pain in the bilateral low back, slightly above the belt line that is increased with standing and walking, and alleviated by sitting. She is not a surgical candidate at this time, and is not interested in surgery. Exhausting conservative treatment is recommended. Will refer to Pain Management for evaluation and treatment; possible lumbar MBB/RFA. Patient to follow up as needed. Electronically Signed By: Beto Rocha CNP This note was created with the assistance of a speech recognition program with the goal of generating a timely record of the patient encounter. Inadvertent computerized cyber security systems engineer errors related to syntax, spelling, homophones, and/or inaudibility may be present. ELLIS Tan 09/20/24 1134 documented in this encounter [facility] 09-02-2024 Miscellaneous Notes Spoke with Ines, He was asking about where patient can get the MRI that was ordered by Dr. Pinto. It is easier for them to get it done in [place]. Advised they could have it done outside of [facility] if they choose, but would need to be sure that the imaging was given to Dr. Guerin. This could be by electronically sending or having the imaging placed on a disc that would be brought into the office. Patient went to [place] by mistake and was seen by Dr. Pinto so they did not have to drive across town. Patient would like to go over results with Dr. Guerin or Beto Rocha. Advised to call after MRI is scheduled to get an appt with Dr. Guerin or Beto. KMP documented in this encounter [facility] 09-02-2024 Telephone encounter Note Spoke with Ines, He was asking about where patient can get the MRI that was ordered by Dr. Pinto. It is easier for them to get it done in [place]. Advised they could have it done outside of [facility] if they choose, but would need to be sure that the imaging was given to Dr. Guerin. This could be by electronically sending or having the imaging placed on a disc that would be brought into the office. Patient went to [place] by mistake and was seen by Dr. Pinto so they did not have to drive across town. Patient would like to go over results with Dr. Guerin or Beto Rocha. Advised to call after MRI is scheduled to get an appt with Dr. Guerin or Beto. KMP [facility] 09-02-2024 History of Present illness Narrative Images from the original note were not included. [facility] [address] [place] [address], [address] [place] [address] * CHART NOTE ? 09/02/2024 Patient: Yani Gerard 1940 [id number] Physician: Malvin Pinto MD, FAANS SUMMARY New onset of lower back pain radiating across the abdomen s/p T11 Kyphoplasty and L2-3 epidural steroid injection. The patient has a history of a T12-L3 Kyphoplasty and has been receiving Prolia injections for her osteoporosis. She does have multiple levels of the disc herniation at L4-5 and L5-S1 in the lower lumbar spine. PLAN The patient was advised to complete an MRI of the lumbar as well as thoracic spine and I will call her with the results. HISTORY OF PRESENT ILLNESS Mrs. Yani Gerard, 84 year old female, presents today for an office visit as an established patient after having kyphoplasty of T11. Today, the patient reports low back pain radiating across the abdomen since her most recent procedure. When the patient stands for more than 5 minutes aggravates the patients symptoms. The patient has been taking CBD gummies, muscle relaxers, and recently she began taking Motrin and Tylenol for her pain. She has not followed with pain management in the past, but recently received L2-3 epidural steroid injections. The patient has been receiving Prolia injections every 6-months for her osteoporosis. ALLERGIES Allergies Allergen Reactions Nnwvaal-Xjd-Paf Reductase Inhibitors Sulfa (Sulfonamide Antibiotics) MEDICATIONS Current Outpatient Medications: acetaminophen (TYLENOL EXTRA STRENGTH) 500 mg tablet, Take 2 tablets (1,000 mg total) by mouth., Disp: , Rfl: amLODIPine (NORVASC) 10 mg tablet, Take 1 tablet (10 mg total) by mouth. (Patient not taking: Reported on 06/11/2024), Disp: , Rfl: ascorbic acid, vitamin C, (VITAMIN C) 100 MG tablet, Take 1 tablet (100 mg total) by mouth in the morning., Disp: , Rfl: aspirin 81 mg, Take 1 tablet (81 mg total) by mouth., Disp: , Rfl: benzonatate (TESSALON PERLES) 100 mg capsule, Take 1 capsule (100 mg total) by mouth 3 (three) times a day as needed., Disp: , Rfl: biotin 1 mg capsule, Take by mouth., Disp: , Rfl: calcium citrate (CALCITRATE) 200 mg (950 mg) tablet, Take 3 tablets (600 mg total) by mouth., Disp: , Rfl: cefDINIR (OMNICEF) 300 mg capsule, Take 1 capsule (300 mg total) by mouth., Disp: , Rfl: CEPHalexin (KEFLEX) 500 mg capsule, TAKE 1 CAPSULE BY MOUTH TWICE DAILY FOR 7 (SEVEN) DAYS, Disp: , Rfl: cholecalciferol, vitamin D3, (VITAMIN D3) 5,000 units capsule, Take 1 capsule (5,000 Units total) by mouth., Disp: , Rfl: ciprofloxacin HCl (CIPRO) 250 mg tablet, , Disp: , Rfl: clonazePAM (KlonoPIN) 0.5 mg tablet, Take 1 tablet (0.5 mg total) by mouth once daily at bedtime., Disp: , Rfl: clopidogreL (PLAVIX) 75 mg tablet, Take 1 tablet (75 mg total) by mouth., Disp: , Rfl: cyanocobalamin 1000 MCG tablet, Take 1 tablet (1,000 mcg total) by mouth in the morning., Disp: , Rfl: cyclobenzaprine (FLEXERIL) 5 mg tablet, Take 1 tablet (5 mg total) by mouth 3 (three) times a day as needed., Disp: , Rfl: diclofenac sodium (VOLTAREN) 1 % gel, Apply 4 g topically in the morning and 4 g at noon and 4 g in the evening and 4 g before bedtime., Disp: , Rfl: DOCOSAHEXAENOIC ACID ORAL, Take by mouth., Disp: , Rfl: evolocumab (REPATHA SURECLICK) 140 mg/mL pen injector, INJECT 140mg EVERY 2 (TWO) weeks, Disp: , Rfl: ezetimibe (ZETIA) 10 mg tablet, Take 1 tablet (10 mg total) by mouth., Disp: , Rfl: furosemide (LASIX) 40 mg tablet, Take 1 tablet (40 mg total) by mouth 2 (two) times a day., Disp: , Rfl: ibuprofen (ADVIL,MOTRIN) 200 mg tablet, Take 2 tablets (400 mg total) by mouth in the morning and 2 tablets (400 mg total) at noon and 2 tablets (400 mg total) in the evening and 2 tablets (400 mg total) before bedtime., Disp: , Rfl: ibuprofen (MOTRIN) 800 mg tablet, Take 1 tablet (800 mg total) by mouth every 6 (six) hours as needed., Disp: , Rfl: isosorbide mononitrate (IMDUR) 30 mg 24 hr tablet, Take 1 tablet (30 mg total) by mouth., Disp: , Rfl: levETIRAcetam (KEPPRA) 500 mg tablet, Twice daily, Disp: , Rfl: losartan (COZAAR) 25 mg tablet, Take 1 tablet (25 mg total) by mouth., Disp: , Rfl: magnesium 200 mg tablet, Take 400 mg by mouth in the morning., Disp: , Rfl: magnesium aspart,citrate,oxide 400 mg magnesium capsule, 1 (one) time each day at the same time., Disp: , Rfl: magnesium oxide (MAGOX) 400 mg tablet, Take 1 tablet (400 mg total) by mouth., Disp: , Rfl: mecobalamin, vitamin B12, 1,000 mcg tablet,chewable, Daily, Disp: , Rfl: meloxicam (MOBIC) 7.5 mg tablet, TAKE 1 TABLET BY MOUTH EVERY DAY for 14 days, Disp: , Rfl: methocarbamoL (ROBAXIN) 750 mg tablet, Take 1 tablet (750 mg total) by mouth every 6 (six) hours as needed., Disp: , Rfl: methylPREDNISolone (MEDROL, SARA,) 4 mg tablet, follow package directions, Disp: 21 tablet, Rfl: 0 metoprolol succinate XL (TOPROL XL) 25 mg 24 hr tablet, Take 2 tablets (50 mg total) by mouth., Disp: , Rfl: nitrofurantoin, macrocrystal-monohydrate, (MACROBID) 100 mg capsule, Apply 1 capsule (100 mg total) to the mouth or throat., Disp: , Rfl: nitroglycerin (NITROSTAT) 0.4 MG SL tablet, See administration instructions., Disp: , Rfl: omeprazole (PriLOSEC) 40 mg capsule, TAKE 1 CAPSULE BY MOUTH ONCE DAILY 30 MINUTES before morning meal, Disp: , Rfl: ondansetron (ZOFRAN) 4 mg tablet, TAKE 2 TABLETS BY MOUTH TWICE DAILY as directed for 14 days, Disp: , Rfl: ondansetron ODT (ZOFRAN ODT) 4 mg disintegrating tablet, Dissolve 1 tablet (4 mg total) on tongue 3 (three) times a day as needed., Disp: , Rfl: oxyCODONE (ROXICODONE) 5 mg immediate release tablet, TAKE 1 TABLET BY MOUTH EVERY 4 HOURS NEEDED FOR SEVERE PAIN, Disp: , Rfl: phenazopyridine (PYRIDIUM) 100 mg tablet, TAKE 1 TABLET AFTER MEALS BY MOUTH THREE TIMES DAILY, Disp: , Rfl: polyethylene glycol (GLYCOLAX) 17 gram/dose powder, polyethylene glycol 3350 17 gram oral powder packet mix and TAKE 1 PACKET EVERY DAY FOR 14 DAYS, Disp: , Rfl: polyethylene glycol-electrolytes (NULYTELY) 420 gram solution, See Admin Instructions., Disp: , Rfl: potassium chloride (K-TAB,KLOR-CON) 10 MEQ CR tablet, Take 1 tablet (10 mEq total) by mouth in the morning., Disp: , Rfl: potassium chloride (KLOR-CON M 20) 20 MEQ CR tablet, Take 1 tablet (20 mEq total) by mouth in the morning., Disp: , Rfl: pramipexole (MIRAPEX) 0.5 mg tablet, Take 1 tablet (0.5 mg total) by mouth., Disp: , Rfl: ranolazine (RANEXA) 1,000 mg 12 hr tablet, Take 1 tablet (1,000 mg total) by mouth., Disp: , Rfl: SYNTHROID 50 mcg tablet, , Disp: , Rfl: triamcinolone (KENALOG) 0.1 % cream, APPLY TO THE AFFECTED AREA(S) TWICE DAILY NEEDED, Disp: , Rfl: trospium (SANCTURA XR) 60 mg capsule,extended release 24hr, TAKE 1 CAPSULE BY MOUTH EVERY DAY AT BEDTIME, Disp: , Rfl: VITAL SIGNS There were no vitals taken for this visit. PHYSICAL EXAMINATION GENERAL: Well developed, well nourished, in no acute distress. OPHTHALMOLOGIC: Pupils equal, round, reactive to light and accomodation, sclera non-icteric. Fundi were not examined. HEAD: Normocephalic, atraumatic. SKIN: Warm and dry, no suspicious lesions. EXTREMITIES: No clubbing, cyanosis, or edema. MUSCULOSKELETAL: There is no atrophy, no fasciculations. No pain with internal/external hip rotation. BACK: No tenderness to palpation of the lumbar spine, ROM of the lumbar spine is limited. NEUROLOGIC: The patient is alert and oriented to person, place, and time. Speech and language function is normal. Memory seems to be intact. Concentration and alertness are appropriate. General fund of knowledge is within normal limits. Cranial nerves II-XII are intact. Gait was not tested. Posture is normal. Strength is 5/5 in the lower extremities, moving all extremities freely. Sensations are intact. Reflexes are 2+ and symmetrical to ankle and knee jerk. Cerebellar functions are done well. MRI / IMAGES XR lumbar spine completed on 07/09/2024 shows a compression fracture at L3 with a prior history of a left L4-5 Microdiscectomy and T12-L3 Kyphoplasty. Additionally, there is a right-sided disc herniation at L4-5 and left-sided disc herniation at L5-S1. There is evidence of a prior left L5-S1 Laminotomy. Electronically Signed By: Malvin Pinto MD, FAAMANUELITO This note was created with the assistance of a speech recognition program with the goal of generating a timely record of the patient encounter. Inadvertent computerized cyber security systems engineer errors related to syntax, spelling, homophones, and/or inaudibility may be present. Scribe Statement: Scribed for and in the presence of Dr. Malvin Pinto MD, FAANS by Eze Ortega. documented in this encounter [facility] 09-02-2024 Instructions Eze Ortega - 09/02/2024 1:30 PM EST The patient was advised to complete an MRI of the lumbar spine and I will call her with the results. documented in this encounter [facility] 08-28-2024 History of Present illness Narrative Images from the original note were not included. Yani Gerard is a 84 y.o. female presents with chief complaint of 6 Month Follow-up, Medicare Annual Wellness Visit Subsequent, and post-op (Kyphoplasty 07/23) HPI: History of Present Illness The patient presents for a routine checkup. She is due for a bone density test and a mammogram. She has undergone extensive blood work. She has a history of chickenpox from her childhood. She has not received the influenza vaccine. She denies experiencing any chest pain. She reports mild shortness of breath, which she attributes to her back condition. She has regular bowel movements and consumes a significant amount of water daily. I have reviewed and reconciled the history and medication list with the patient today. CURRENT PCP/CARE TEAM: Patient Care Team: Kyle Amin MD as PCP - General (Internal Medicine) Kyle Amin MD as PCP - [facility] Dr Harkins (Cardiology) Dr Adelso Houston (Ophthalmology) Loraine Perry MD as Referring Physician (Dermatology) Cristóbal Cornell MD (General Surgery) Lisandra Guerin MD as Referring Physician (Neurosurgery) Jayden Burks MD as Referring Physician (Neurology) Over the past 2 weeks, how often have you been bothered by any of the following problems? Little interest or pleasure in doing things: Not at all Feeling down, depressed, or hopeless: Not at all Patient Health Questionnaire-2 Score: 0 Toribio Fall Risk History of Falling, Immediate or Within 3 Months: No Health Risk Assessment Form Do you need help eating, bathing, using the toilet, dressing, or getting around your home?: No Can you prepare your own meals?: Yes Can you do your own housework without help?: Yes Can you shop for groceries or clothes without help?: Yes Do you exercise for about 20 minutes 3 or more days a week?: Yes How confident are you that you can control and manage most of your health problems?: Very confident Can you mange your money, credit cards and accounts, pay bills and taxes?: Yes Vision Screening: Yes, patient sees regular network technology instructor/director child abuse therapy Cognitive Screening Self Assessment: No overt cognitive deficiency is apparent by direct observation Three Word Registration: Pythian, Watch, Yolanda Clock Drawing: Normal Clock - 2 Three Word Recall: All 3 words correct - 3 Total Score (0-5 Points): 5 HISTORIES: PAST MEDICAL HISTORY: Past Medical History: Diagnosis Date Age related osteoporosis, unspecified pathological fracture presence (CMS/HCC) CAD (coronary artery disease) (CMS/HCC) Diverticulitis Essential hypertension (CMS/HCC) GERD (gastroesophageal reflux disease) High blood cholesterol level (CMS/HCC) Hypercholesterolemia (CMS/HCC) Hypertension (CMS/HCC) Hypothyroid (CMS/HCC) Hypothyroidism (CMS/HCC) Melanoma (CMS/HCC) Paroxysmal supraventricular tachycardia (CMS/HCC) Post menopausal syndrome RLS (restless legs syndrome) Solitary pulmonary nodule 03/30/2023 Vitamin D deficiency SURGICAL HISTORY: Past Surgical History: Procedure Laterality Date BACK SURGERY 2014 CARDIAC CATHETERIZATION 2018 COLONOSCOPY COLONOSCOPY 05/04/2021 CORONARY ANGIOPLASTY 02/2019 PTCA with stent x [address] ANGIO HEAD 12/09/2023 CT ANGIO HEAD 12/09/2023 CT ANGIOGRAM NECK 12/09/2023 CT ANGIOGRAM NECK 12/09/2023 IR KYPHOPLASTY THORACIC 07/23/2024 IR KYPHOPLASTY THORACIC 07/23/2024 KNEE ARTHROSCOPY W/ MENISCAL REPAIR Left 2014 MOHS SURGERY Left 12/01/2022 DE CORRECTION HAMMERTOE Bilateral 2012 DE RHYTIDECTOMY CHEEK CHIN & NECK 2009 REVISION TOTAL HIP ARTHROPLASTY SKIN CANCER EXCISION TOTAL HIP ARTHROPLASTY Right 01/05/2021 TOTAL VAGINAL HYSTERECTOMY 1964 TVH Ant repair SOCIAL HISTORY: Social History Tobacco Use Smoking status: Never Smokeless tobacco: Never Vaping Use Vaping status: Never Used Substance Use Topics Alcohol use: Yes Alcohol/week: 2.0 standard drinks of alcohol Types: 2 Glasses of wine per week Comment: Caffeine: Herbal Tea, coffee; on occassion Drug use: Never Depression: Not at risk (08/28/2024) PHQ-2 PHQ-2 Score: 0 FAMILY HISTORY: Family History Adopted: Yes Problem Relation Name Age of Onset Stomach cancer Mother Heart disease Mother Other (suicide) Father Breast cancer Sister Stomach cancer Maternal Grandmother Hypertension Other Coronary artery disease Other Cancer Other Multiple myeloma Neg Hx Ovarian cancer Neg Hx Colon cancer Neg Hx MEDICATIONS: Current Outpatient Medications Medication Instructions amLODIPine (NORVASC) 10 mg, Daily ascorbic acid (VITAMIN C) 500 mg, 2 times daily ASPIRIN 81 PO 1 tablet, Daily biotin 5 MG capsule 1 capsule, Daily calcium carbonate 1500 (600 Ca) MG tablet 1 tablet, Daily cyanocobalamin (VITAMIN B-12) 1,000 mcg, Daily diclofenac sodium 4 g, 4 times daily ezetimibe (ZETIA) 10 mg, Daily Mtbkbkhyhsf-Dhngwfnxe-Tvrskj (Trelegy Ellipta) 100-62.5-25 MCG/ACT aerosol powder 1 puff, Daily PRN furosemide (LASIX) 40 mg, Oral, Daily ibuprofen 400 mg, 4 times daily isosorbide mononitrate ER (IMDUR) 30 mg, Daily levETIRAcetam (KEPPRA) 500 mg, Oral, 2 times daily levothyroxine (SYNTHROID) 50 mcg, Oral, Daily before breakfast losartan (COZAAR) 50 mg, 2 times daily magnesium oxide (MAG-OX) 400 mg, Oral, Daily methocarbamol (ROBAXIN) 750 mg, Oral, 2 times daily metoprolol succinate XL (TOPROL-XL) 25 mg, Daily omeprazole (PRILOSEC) 40 mg, Oral, Daily before breakfast ondansetron (ZOFRAN) 4 mg, Oral, Every 8 hours PRN oxybutynin XL (Ditropan-XL) 5 MG 24 hr tablet TAKE 1 TABLET DAILY potassium chloride CR (Klor-Con) 10 MEQ ER tablet 10 mEq, Oral, Daily pramipexole (MIRAPEX) 0.5 mg, Oral, Nightly Prolia 60 mg, Every 6 months ranolazine (RANEXA) 1,000 mg, 2 times daily Repatha 140 mg, Every 14 days trospium (Sanctura XR) 60 MG 24 hour capsule TAKE 1 CAPSULE BY MOUTH EVERY DAY AT BEDTIME ALLERGIES: Allergies Allergen Reactions Ezetimibe Other Other reaction(s): Myalgia Severe muscle pain fingers and legs, discontinued after 5 doses Severe muscle pain fingers and legs, discontinued after 5 doses Gabapentin Nausea Only, Other and GI intolerance Other reaction(s): nausea Pramipexole GI intolerance Other reaction(s): nausea/dizziness, blurry vision Ropinirole Hcl GI intolerance Other Reaction(s): nausea/dizziness, blurry vision Statins Other Other reaction(s): intolerance Other reaction(s): Other: See Comments Sulfa Antibiotics PHYSICAL EXAM: Visit Vitals BP 112/64 Pulse 73 Ht 5' 1 Wt 146 lb SpO2 95% BMI 27.59 kg/m Smoking Status Never BSA 1.69 m BP Readings from Last 3 Encounters: 08/28/24 112/64 07/16/24 118/68 05/15/24 140/78 Wt Readings from Last 3 Encounters: 08/28/24 146 lb 07/16/24 165 lb 03/03/24 166 lb Physical Exam HENT: Right Ear: Tympanic membrane and external ear normal. Left Ear: Tympanic membrane and external ear normal. Mouth/Throat: Mouth: Mucous membranes are moist. Neck: Thyroid: No thyroid mass or thyromegaly. Vascular: No carotid bruit. Cardiovascular: Rate and Rhythm: Normal rate and regular rhythm. Heart sounds: No murmur heard. No friction rub. No gallop. Pulmonary: Effort: Pulmonary effort is normal. Breath sounds: Normal breath sounds. Abdominal: General: Bowel sounds are normal. Palpations: Abdomen is soft. Tenderness: There is no abdominal tenderness. Musculoskeletal: Right lower leg: No edema. Left lower leg: No edema. Lymphadenopathy: Cervical: No cervical adenopathy. Skin: General: Skin is warm and dry. Neurological: Mental Status: She is alert and oriented to person, place, and time. Psychiatric: Thought Content: Thought content normal. Results Laboratory Studies Liver enzyme levels: one high, one low, one normal. Blood sugar: 112. Kidney function: normal. Sodium and potassium levels: normal. ASSESSMENT AND PLAN: Assessment & Plan 1. Essential hypertension (CMS/HCC) (Primary) Doing well. Blood pressures have been good. Continue lifestyle modifications. Continue current medication. Call if any problems or if home blood pressures rising. - Microalbumin / creatinine urine ratio; Future - Urinalysis with microscopic; Future - Comprehensive metabolic panel; Future - Microalbumin / creatinine urine ratio - Urinalysis with microscopic - Comprehensive metabolic panel 2. Pure hypercholesterolemia (CMS/HCC) Continue current medication, eat a healthy diet, and exercise regularly. - Lipid panel; Future - Lipid panel 3. Coronary artery disease involving [place] coronary artery of [place] heart without angina pectoris (CMS/HCC) Doing well. Denies any anginal symptoms. Continue aggressive risk factor modification. Continue current medications. Call if any problems. 4. Paroxysmal supraventricular tachycardia (CMS/HCC) Heart rate is controlled. The patient reports no symptoms. There have been no signs of any bleeding. Will continue current medication regimen. Call if any problems. 5. Pulmonary hypertension ([facility]/HCC) ECHO 11/2023 RVSP stable. She follows with Cardiology. 6. Aortic stenosis, moderate Last ECHO 11/2023 showed mild aortic stenosis. Continue to monitor. 7. Acquired hypothyroidism (CMS/HCC) Stable. Continue to monitor. - TSH; Future - TSH 8. Gastroesophageal reflux disease without esophagitis Stable. Continue current regimen. 9. RLS (restless legs syndrome) Stable. She has increased dosage and needs refill. - pramipexole (Mirapex) 0.5 MG tablet; Take 1 tablet (0.5 mg) by mouth in the morning and 1 tablet (0.5 mg) before bedtime. Dispense: 60 tablet; Refill: 5 10. Primary osteoarthritis involving multiple joints Stable. Continue current regimen. - methocarbamol (Robaxin) 750 MG tablet; Take 1 tablet (750 mg) by mouth in the morning and 1 tablet (750 mg) before bedtime. Dispense: 60 tablet; Refill: 5 11. Anemia, unspecified type Stable. Continue to monitor. - CBC and differential; Future - CBC and differential 12. OAB (overactive bladder) Stable. Continue current regimen. 13. Age-related osteoporosis without current pathological fracture ([facility]) DEXA due. Will order. - DEXA bone density; Future 14. History of TIA (transient ischemic attack) Stable. Continue to monitor. 15. Vitamin D deficiency Continue to monitor. - Vitamin D 25 hydroxy Total; Future - Vitamin D 25 hydroxy Total 16. Encounter for screening mammogram for malignant neoplasm of breast - Bilateral screening mammogram with tomosynthesis; Future 17. Medicare annual wellness visit, subsequent Patient here for annual Medicare Wellness visit with Candice Wilkerson NP. Demographics were updated. Self-assessment was completed. Past medical, family, and social history were updated. The medication list, including supplements being taken, was updated. A list of other current medical providers was established/updated. Time was spent discussing health maintenance issues, ordering proper testing, and a schedule was provided regarding recommended screening. We discussed safety issues and fall risk. Depression screening was completed and addressed. Fall screening was completed and addressed. Cognitive function was assessed by direct observation and assessment of ability to perform ADL's and IADL's was done. The current BMI was provided and will continue to be monitored at routine office visits as well. Major risk factors for chronic disease including family history were discussed and a list was provided with the care plan. Colonoscopy 03/2021 2 tubular adenoma removed. Repeat recommended in 03/2026. 18. ACP (advance care planning) We also discussed Advanced Directives and code status. Pt does not have LW/POA. Pt wishes to be a FULL code. Dr. Amin was present in the office at the time of visit today and is supervising patient care. I am following Dr. Amin's established plan of care for the above issues. documented in this encounter [facility] 07-22-2024 Note HNO ID: [id number] Author: RENATA SANDOVAL MD Service: ? Author Type: Physician Type: Progress Notes Filed: 07/22/2024 16:58 Note Text: 84 year old female presents with the following concerns and complaints: ear blockage HPI Hx of cerumen trouble ACTIVE PROBLEM LIST Actinic Keratosis Other Specified Disease of Sebaceous Glands Htn (Hypertension) Hyperlipidemia Statin Myopathy Preoperative Cardiovascular Examination Cad (Coronary Artery Disease) Abnormality of Gait Clear Outcomes Study, PI: Eva Fischer MD Divergence Insufficiency Paroxysmal Supraventricular Tachycardia (Hcc) Unstable Angina (Hcc) Acquired Hypothyroidism Transient Ischemic Attack Left Hemiparesis (Hcc) Interstitial Lung Disease (Hcc) Pulmonary Hypertension (Hcc) Status Post Coronary Angioplasty Stenosis of Both Vertebral Arteries Stuttering Left Arm Weakness Tremor, Unspecified Bradycardia Atherosclerosis of Aorta (Hcc) Obesity, Class I, Bmi 30-34.9 Exam Ears: etelvina cerumen impaction .....cleaned ; otherwise ears wnl Assessment and Plan Cerumen imaction PROCEDURE:Removal of Impacted cerumen. Ear(s) cleaned using the operating microscope/magnification with right angle hook requiring physician expertise.etelvina Sandoval MD [facility] 07-22-2024 History of Present illness Narrative 84 year old female presents with the following concerns and complaints: ear blockage HPI Hx of cerumen trouble ACTIVE PROBLEM LIST Actinic Keratosis Other Specified Disease of Sebaceous Glands Htn (Hypertension) Hyperlipidemia Statin Myopathy Preoperative Cardiovascular Examination Cad (Coronary Artery Disease) Abnormality of Gait Clear Outcomes Study, PI: Eva Fischer MD Divergence Insufficiency Paroxysmal Supraventricular Tachycardia (Hcc) Unstable Angina (Hcc) Acquired Hypothyroidism Transient Ischemic Attack Left Hemiparesis (Hcc) Interstitial Lung Disease (Hcc) Pulmonary Hypertension (Hcc) Status Post Coronary Angioplasty Stenosis of Both Vertebral Arteries Stuttering Left Arm Weakness Tremor, Unspecified Bradycardia Atherosclerosis of Aorta (Hcc) Obesity, Class I, Bmi 30-34.9 Exam Ears: etelvina cerumen impaction .....cleaned ; otherwise ears wnl Assessment and Plan Cerumen imaction PROCEDURE:Removal of Impacted cerumen. Ear(s) cleaned using the operating microscope/magnification with right angle hook requiring physician expertise.etelvina Renata Sandoval MD Tobacco Use: Never Was smoking cessation packet given? N/A - Patient is a non-smoker or quit >1 year ago. Was a referral initiated?N/A Patient is a non-smoker documented in this encounter [facility] 07-22-2024 Note HNO ID: [id number] Author: HUEY LOPEZ MA Service: ? Author Type: Auto Cleaner Type: Progress Notes Filed: 07/22/2024 16:58 Note Text: Tobacco Use: Never Was smoking cessation packet given? N/A - Patient is a non-smoker or quit >1 year ago. Was a referral initiated?N/A Patient is a non-smoker [facility] 07-16-2024 History of Present illness Narrative HPI: Historian of HPI: patient Hector Gerard is a 84 y.o. female who presents today to the Urgent Care with the following complaints and denials which have been present for 3 week(s). Pt states she had back surgery about 3 weeks ago. Pt states she had a UTI at the time of surgery, and thinks it never went away. Pt denies any vomiting, diarrhea, fever, and chills. C/O Denies Symptom Comments [x] [] Dysuria Burning sensation [] [x] hematuria [x] [] Urinary frequency [] [x] Urinary incontinence [x] [] Urinary urgency [] [x] Genital itching [] [x] Genital discharge [x] [] Back pain Bilateral back pain [] [x] Abd pain Additional Comments: pt has not taken any OTC medications ROS: A complete system ROS was performed and negative aside from the pertinent positives noted in the HPI and PE. Visit Vitals BP 118/68 (BP Location: Left arm, Patient Position: Sitting, BP Cuff Size: Large adult) Pulse 78 Temp 98.7 F Wt 165 lb SpO2 98% BMI 31.18 kg/m Smoking Status Never BSA 1.79 m Physical Exam Vitals reviewed. Constitutional: General: She is not in acute distress. Appearance: Normal appearance. HENT: Head: Normocephalic. Nose: Nose normal. Mouth/Throat: Mouth: Mucous membranes are moist. Pharynx: Oropharynx is clear. Eyes: Extraocular Movements: Extraocular movements intact. Conjunctiva/sclera: Conjunctivae normal. Pupils: Pupils are equal, round, and reactive to light. Cardiovascular: Rate and Rhythm: Normal rate and regular rhythm. Pulses: Normal pulses. Heart sounds: Normal heart sounds. Pulmonary: Effort: Pulmonary effort is normal. No respiratory distress. Breath sounds: No wheezing, rhonchi or rales. Musculoskeletal: General: Normal range of motion. Cervical back: Normal range of motion and neck supple. Skin: General: Skin is warm and dry. Findings: No rash. Neurological: General: No focal deficit present. Mental Status: She is alert and oriented to person, place, and time. Psychiatric: Mood and Affect: Mood normal. IH Testing: An In-House UA has been obtianed: Collected by clean catch REFERENCE RANGE Leukocytes: Negative Nitrite: Negative Protein: Negative PH: 6.0 Blood: Negative Specific Coleman: 1.005 Ketone: Negative Glucose: Negative Neg Neg Neg - Trace mg/dl 5.0-8.0 Neg 1.005-1.030 Neg Neg 1. Dysuria Presents today for evaluation of possible UTI. She reports recent back surgery that needs re-done because there is a new fracture so she is unsure if her symptoms are urinary related or due to her ongoing back issues. She has history of T-11 compression fracture for which she reports, They put cement in and then on x ray they found another fracture . She reports she will be going back in for surgery on Monday . She wants to be sure she does not have a UTI prior to OR. Urinalysis obtained in urgent care and negative for acute UTI. She was made aware of this. Will send urine for culture and hold off on treating with ATB until final report. She expressed an understanding of this. - URINALYSIS ANALYZER TEST - URINARY TRACT INFECTION (HTRX) documented in this encounter [facility] 2024 Telephone encounter Note Pharmacy escripts requesting the following refill: Requested Prescriptions Pending Prescriptions Disp Refills losartan (COZAAR) 25 mg tablet [Pharmacy Med Name: losartan 25 mg tablet] 360 tablet 3 Sig: take 2 tablets by mouth twice daily Please review and advise. Nikolas Waters MA [facility] 2024 Miscellaneous Notes Pharmacy escripts requesting the following refill: Requested Prescriptions Pending Prescriptions Disp Refills losartan (COZAAR) 25 mg tablet [Pharmacy Med Name: losartan 25 mg tablet] 360 tablet 3 Sig: take 2 tablets by mouth twice daily Please review and advise. Nikolas Waters MA documented in this encounter [facility] 06-24-2024 Telephone encounter Note is requesting a refill on Oxycodone to [facility] in [place]. She is scheduled for surgery on her back tomorrow at 8am [facility] 06-24-2024 Miscellaneous Notes is requesting a refill on Oxycodone to [facility] in [place]. She is scheduled for surgery on her back tomorrow at 8am documented in this encounter [facility] 06-21-2024 Miscellaneous Notes Nikolas from [facility] contacted the office to ask assistance in locating information in the patient's chart for insurance requirements. I assisted Nikolas with information that may be pertinent and where to find it in the chart. Nikolas stated she is working on the prior authorization for [facility] Kyphoplasty, currently it is scheduled for Monday06/25/24 however it is not approved at this time. They would recommend postponing until auth is obtained. I let Nikolas know the patient is in a lot of pain, at this time it isn't going to be rescheduled but I would let our Account [employer] Michelle Guerrero know so that she may contact the patient if needed. documented in this encounter [facility] 06-21-2024 Telephone encounter Note Nikolas from [facility] contacted the office to ask assistance in locating information in the patient's chart for insurance requirements. I assisted Nikolas with information that may be pertinent and where to find it in the chart. Nikolas stated she is working on the prior authorization for [facility]ani's Kyphoplasty, currently it is scheduled for Monday06/25/24 however it is not approved at this time. They would recommend postponing until auth is obtained. I let Nikolas know the patient is in a lot of pain, at this time it isn't going to be rescheduled but I would let our Account [employer] Michelle Guerrero know so that she may contact the patient if needed. [facility] 06-21-2024 History of Present illness Narrative Received call from patient's wanting to move up appointment to be seen prior to kyphoplasty scheduled for 06/25/24. Spoke with Shannon and Dr Guerin, add on appointment not approved, would have had to be same day add on as kypho. Dr Guerin stated he would call patient to answer questions. If wants office visit prior he will need to reschedule kyphoplasty to follow 07/11 office visit. Transferred patient's to hazard mitigation officer Michelle. documented in this encounter [facility] 06-20-2024 Miscellaneous Notes Spoke to Yani and her about the kyphoplasty recommedation and they just want to have one more discussion with Dr Guerin because he had said some things in the room that left them a little uneasy about a kyphoplasty and before she under goes it they need some reassurance from dr Guerin. Do you think he will do a video visit with them? patient has kyphoplasty scheduled for 07/25/2024 with IR but they are still wanting to speak to Dr Guerin in person, video or by cell. Per Beto Rocha : Can you send a message to the schedulers and ask them to schedule her? 06/20/24 sent message to pharmacy manager to make appt. 06/20/2024 is michelle here? this needs to be brought to her. documented in this encounter [facility] 06-20-2024 Telephone encounter Note Spoke to Yani and her about the kyphoplasty recommedation and they just want to have one more discussion with Dr Guerin because he had said some things in the room that left them a little uneasy about a kyphoplasty and before she under goes it they need some reassurance from dr Guerin. Do you think he will do a video visit with them? patient has kyphoplasty scheduled for 07/25/2024 with IR but they are still wanting to speak to Dr Guerin in person, video or by cell. Per Beto Rocha : Can you send a message to the schedulers and ask them to schedule her? 06/20/24 sent message to pharmacy manager to make appt. 06/20/2024 is michelle here? this needs to be brought to her. [facility] 06-18-2024 Miscellaneous Notes ELLIS Tan 06/18/2024 2:59 PM EDT Back to Top Could someone please call her and let her know I placed a referral to IR for kyphoplasty per Dr. Guerin's recommendation? Call to Yani and informed of IR Referral and number provided to IR. She verbalizes understanding. documented in this encounter [facility] 06-18-2024 Telephone encounter Note ELLIS Tan 06/18/2024 2:59 PM EDT Back to Top Could someone please call her and let her know I placed a referral to IR for kyphoplasty per Dr. Guerin's recommendation? [facility] 06-18-2024 Telephone encounter Note Call to Yani and informed of IR Referral and number provided to IR. She verbalizes understanding. [facility] 06-18-2024 Telephone encounter Note [employer] phoned to follow up with earlier call for authorization for Pt. Pt Sp has phoned [employer] to follow due to Pt Pain level. [employer] indicates this needs to be called in as urgent request to [employer]. [employer] [phone] [facility] 06-18-2024 Miscellaneous Notes [employer] phoned to follow up with earlier call for authorization for Pt. Pt Sp has phoned [employer] to follow due to Pt Pain level. [employer] indicates this needs to be called in as urgent request to [employer]. [employer] [phone] February, from [employer], called regarding prior authorization for the spine epidural injection. She says the patient is in a lot of pain, and we can call [employer] directly with an urgent request. Per February, we should call [employer] at , let them know it is an urgent request due to the patient being in a lot of pain. [facility] is also requesting that once we speak with [employer], that we call the patient with an update. documented in this encounter [facility] 06-18-2024 Telephone encounter Note February, from [employer], called regarding prior authorization for the spine epidural injection. She says the patient is in a lot of pain, and we can call [employer] directly with an urgent request. Per February, we should call [employer] at , let them know it is an urgent request due to the patient being in a lot of pain. [facility] is also requesting that once we speak with [employer], that we call the patient with an update. [facility] 06-18-2024 Note HNO ID: [id number] Author: JOHN WEATHERS MD Service: ? Author Type: Physician Type: Progress Notes Filed: 06/18/2024 13:07 Note Text: SPINE SURGERY NEW PATIENT This is an in-person visit. PCP: Kyle Amin MD REFERRING PROVIDER: MD Melinda SUBJECTIVE CHIEF COMPLAINT: Lower back pain Right leg pain Walking difficulty HISTORY OF PRESENT ILLNESS: Yani Gerard is a 83 year old female presenting with family Yani Gerard is a pleasant 83-year-old female is here in spine surgical with a history of lower back pain. Pain started few months ago without any history of injury or fall. Pain is mostly localized to lower back. Pain is constant, aggravated by standing, walking for short distance. Pain is not significantly improved with the sitting or lying down. She is sleeping in a recliner chair. Unable to sleep on a regular bed. Occasionally pain is radiating to right lower extremity. Occasionally noticing urgency incontinence of urine. No left leg pain. Denies leg numbness. Denies weakness. Denies bowel incontinence. Evaluated by multiple medical team recently: Kofi CAMPBELL 2023- MRI lumbar spine and trial of lyrica Dr. Jayden Burks in Neurology for poor balance-refer her for vestibular physical therapy. history of relatively stereotyped episodic alteration of behavior and movement. Prolonged video EEG monitoring has failed to demonstrate a definite cerebral electrographic correlate to this phenomenon -Dr Henriquez- Consult placed to Functional Movement Disorders multidisciplinary clinic continue PT and follow with psychology when able Dr Agustín Ornelas 2023 for Intracranial atherosclerotic disease and transient neurologic symptoms ; -September 2023 she experienced sudden onset left leg shaking, slurred speech and difficulty expressing herself; an2023, her symptoms happened again, although in a milder form, and lasted only about 6-7 hours. Continue dual antiplatelet therapy for 3 months, then consider Plavix monotherapy long-term afterwards. Aggressive medical management of underlying vascular risk factors. -Right JULIANNA revision by Dr Morse in [facility] 12/2021, 12/2020 -Left Heart Catheterization by Dr Allen 05/2023 Tried Medrol Dosepak without much pain relief. On record 25 mg 3 times a day, oxycodone IR every 4 hours, diclofenac gel, Robaxin 4 times a day. All medications helps only minimal pain. Received right trochanteric bursa injection without any pain relief. Known history of osteoporosis, on Prolia for at least 2 years. Last BMD done in 2020. BMD done on 2022 however she not completed it. Underwent left L4 and 5 laminectomy in 2009 at the [facility]. PRECIPITATING EVENT: None DURATION OF SYMPTOMS: Greater Than 6 Weeks PAIN EVALUATION 06/18/2024 1004 Pain Level: 8 Pain Location: Back-Lower Description: Pressure Ulcer/Injury;Throbbing Duration Units: Unknown Frequency: Continuous Pain Radiation: Lower back pain occasionally radiating to right lower extremity Aggravating Factors: Constant, aggravated by standing, walking Alleviating Factors: Medications Pain Ratio: Pain in the back is greater than in the leg DERMATOMAL DISTRIBUTION: Not applicable AMBULATORY STATUS: Impaired Home Distances ANTIPLATELET OR ANTICOAGULATION STATUS: Aspirin PREVIOUS CONSERVATIVE TREATMENTS: Oxycodone IR Voltaren gel Robaxin Tylenol Medrol Dosepak Retrocardiac bursa injection without much pain relief PREVIOUS SPINAL SURGERY: SURGERY #1: Left L4-5, L5-S1 decompression 2009 ACTIVE PROBLEM LIST Actinic Keratosis Other Specified Disease of Sebaceous Glands Htn (Hypertension) Hyperlipidemia Statin Myopathy Preoperative Cardiovascular Examination Cad (Coronary Artery Disease) Abnormality of Gait Clear Outcomes Study, PI: Eva Fischer MD Divergence Insufficiency Paroxysmal Supraventricular Tachycardia (Hcc) Unstable Angina (Hcc) Acquired Hypothyroidism Transient Ischemic Attack Left Hemiparesis (Hcc) Interstitial Lung Disease (Hcc) Pulmonary Hypertension (Hcc) Status Post Coronary Angioplasty Stenosis of Both Vertebral Arteries Stuttering Left Arm Weakness Tremor, Unspecified Bradycardia Atherosclerosis of Aorta (Hcc) Obesity, Class I, Bmi 30-34.9 PAST MEDICAL HISTORY No date: Arthritis No date: Atrial fibrillation ([facility]) Comment: pafib short lived suspected per apple watch strip, Biotel in place 10/03/2018: Benign paroxysmal positional vertigo of right ear 03/28/2019: CAD (coronary artery disease) Comment: LAD proximal stent , RCA nondominant bifurcating severe disease small medical rx No date: Cancer (HCC) 09/24/2018: Dizziness No date: HTN (hypertension) No date: Hypertension 03/21/2019: Lumbar back pain with radiculopathy affecting left lower extremity No date: Pulmonary HTN (HCC) No date: TIA (transient ischemic attack) Comment: left leg motion movement and s (more content not included)... [facility] 06-18-2024 History of Present illness Narrative SPINE SURGERY NEW PATIENT This is an in-person visit. PCP: Kyle Amin MD REFERRING PROVIDER: MD Melinda SUBJECTIVE CHIEF COMPLAINT: Lower back pain Right leg pain Walking difficulty HISTORY OF PRESENT ILLNESS: Yani Gerard is a 83 year old female presenting with family Yani Gerard is a pleasant 83-year-old female is here in spine surgical with a history of lower back pain. Pain started few months ago without any history of injury or fall. Pain is mostly localized to lower back. Pain is constant, aggravated by standing, walking for short distance. Pain is not significantly improved with the sitting or lying down. She is sleeping in a recliner chair. Unable to sleep on a regular bed. Occasionally pain is radiating to right lower extremity. Occasionally noticing urgency incontinence of urine. No left leg pain. Denies leg numbness. Denies weakness. Denies bowel incontinence. Evaluated by multiple medical team recently: Kofi CAMPBELL 2023- MRI lumbar spine and trial of lyrica Dr. Jaydne Burks in Neurology for poor balance-refer her for vestibular physical therapy. history of relatively stereotyped episodic alteration of behavior and movement. Prolonged video EEG monitoring has failed to demonstrate a definite cerebral electrographic correlate to this phenomenon -Dr Henriquez- Consult placed to Functional Movement Disorders multidisciplinary clinic continue PT and follow with psychology when able Dr Agustín Ornelas 2023 for Intracranial atherosclerotic disease and transient neurologic symptoms ; -September 2023 she experienced sudden onset left leg shaking, slurred speech and difficulty expressing herself; an2023, her symptoms happened again, although in a milder form, and lasted only about 6-7 hours. Continue dual antiplatelet therapy for 3 months, then consider Plavix monotherapy long-term afterwards. Aggressive medical management of underlying vascular risk factors. -Right JULIANNA revision by Dr Morse in [facility] 12/2021, 12/2020 -Left Heart Catheterization by Dr Allen 05/2023 Tried Medrol Dosepak without much pain relief. On record 25 mg 3 times a day, oxycodone IR every 4 hours, diclofenac gel, Robaxin 4 times a day. All medications helps only minimal pain. Received right trochanteric bursa injection without any pain relief. Known history of osteoporosis, on Prolia for at least 2 years. Last BMD done in 2020. BMD done on 2022 however she not completed it. Underwent left L4 and 5 laminectomy in 2009 at the [facility]. PRECIPITATING EVENT: None DURATION OF SYMPTOMS: Greater Than 6 Weeks PAIN EVALUATION 06/18/2024 1004 Pain Level: 8 Pain Location: Back-Lower Description: Pressure Ulcer/Injury;Throbbing Duration Units: Unknown Frequency: Continuous Pain Radiation: Lower back pain occasionally radiating to right lower extremity Aggravating Factors: Constant, aggravated by standing, walking Alleviating Factors: Medications Pain Ratio: Pain in the back is greater than in the leg DERMATOMAL DISTRIBUTION: Not applicable AMBULATORY STATUS: Impaired Home Distances ANTIPLATELET OR ANTICOAGULATION STATUS: Aspirin PREVIOUS CONSERVATIVE TREATMENTS: Oxycodone IR Voltaren gel Robaxin Tylenol Medrol Dosepak Retrocardiac bursa injection without much pain relief PREVIOUS SPINAL SURGERY: SURGERY #1: Left L4-5, L5-S1 decompression 2009 ACTIVE PROBLEM LIST Actinic Keratosis Other Specified Disease of Sebaceous Glands Htn (Hypertension) Hyperlipidemia Statin Myopathy Preoperative Cardiovascular Examination Cad (Coronary Artery Disease) Abnormality of Gait Clear Outcomes Study, PI: Eva Fischer MD Divergence Insufficiency Paroxysmal Supraventricular Tachycardia (Hcc) Unstable Angina (Hcc) Acquired Hypothyroidism Transient Ischemic Attack Left Hemiparesis (Hcc) Interstitial Lung Disease (Hcc) Pulmonary Hypertension (Hcc) Status Post Coronary Angioplasty Stenosis of Both Vertebral Arteries Stuttering Left Arm Weakness Tremor, Unspecified Bradycardia Atherosclerosis of Aorta (Hcc) Obesity, Class I, Bmi 30-34.9 PAST MEDICAL HISTORY No date: Arthritis No date: Atrial fibrillation ([facility]) Comment: pafib short lived suspected per apple watch strip, Biotel in place 10/03/2018: Benign paroxysmal positional vertigo of right ear 03/28/2019: CAD (coronary artery disease) Comment: LAD proximal stent , RCA nondominant bifurcating severe disease small medical rx No date: Cancer (HCC) 09/24/2018: Dizziness No date: HTN (hypertension) No date: Hypertension 03/21/2019: Lumbar back pain with radiculopathy affecting left lower extremity No date: Pulmonary HTN (HCC) No date: TIA (transient ischemic attack) Comment: left leg motion movement and slurred speech PAST SURGICAL HISTORY 03/28/2019: CC CORONARY STENT Comment: LAD prox stent , RCA nondominant bifurcating severe disease small medical rx , [facility] -No restenosis in stent lad mild disease 06/14/23 No date: POST-CATARACT LASER SURGERY; Bilateral 2016: REMV CATARACT EXTRACAP,INSERT LENS; Bilateral No date: REVISE TOTAL HIP REPLACEMENT; Right No date: TOTAL HIP REPLACEMENT; Right FAMILY HISTORY Problem Relation Age of Onset Heart Mother heart attack Hypertension Mother Cancer Mother stomach Cancer Sister breast non smoker half sister Heart Maternal Grandmother heart attack Diabetes No Family History Cataract No Family History Glaucoma No Family History Macular Degen No Family History Social History Tobacco Use Smoking status: Never Smokeless tobacco: Never Vaping Use Vaping status: Never Used Substance Use Topics Alcohol use: Yes Comment: wine occas Drug use: No ALLERGIES Allergen Reactions Ropinirole Other: See Comments Other reaction(s): nausea/dizziness, blurry vision Xknmftl-Itw-Wew Red* Other: See Comments Sulfa (Sulfonamide * Rash MEDICATIONS: methylPREDNISolone (MEDROL DOSE-PACK) 4 mg Dose-Pack follow package directions omeprazole (PRILOSEC) 40 mg capsule TAKE 1 CAPSULE BY MOUTH ONCE DAILY 30 MINUTES before morning meal ondansetron (ZOFRAN) 4 mg tablet TAKE 2 TABLETS BY MOUTH TWICE DAILY as directed for 14 days oxybutynin XL (DITROPAN XL) 5 mg 24 hr tablet 5 mg. benzonatate (TESSALON PERLE) 100 mg capsule Take 100 mg by mouth. oxyCODONE IR (ROXICODONE) 5 mg immediate release tablet Take 5 mg by mouth every 4 hours as needed. ibuprofen (MOTRIN ORAL) Take by mouth. furosemide (LASIX) 40 mg tablet Take 1 tablet by mouth two times a day. pregabalin (LYRICA) 25 mg capsule Take 1 capsule by mouth two times a day for 90 days. diclofenac (VOLTAREN ARTHRITIS PAIN) 1 % topical gel Apply 4 g to affected area four times daily. methocarbamol (ROBAXIN) 750 mg tablet Take 1 tablet by mouth four times a day as needed. ranolazine SR (RANEXA) 1,000 mg tab ER 12 hr Take 1 tablet by mouth two times a day. potassium chloride ER (KLOR-CON) 20 mEq tablet Take 1 tablet by mouth once daily. evolocumab (REPATHA SURECLICK) 140 mg/mL pen injector Inject 140 mg subcutaneously as directed. Inject 1 pen subcu every 2 wks metoprolol succinate ER (TOPROL XL) 50 mg 24 hr tablet Take 0.5 tablet by mouth once daily. losartan (COZAAR) 25 mg tablet Take 2 tablets by mouth two times a day. levothyroxine (SYNTHROID) 50 mcg tablet Take 1 tablet by mouth daily at 6:00 am. Patient should start on December 12, 2023. INV VITAMIN D3 5000 UNITS CAPSULE (IRB [id number]) Take 5,000 Units by mouth once daily. For Investigational Drug Use Only. PI: Stevan Lozoya, PhD. Take one capsule by mouth daily for 3 months prior to surgery and 3 months after surgery. cyanocobalamin (VITAMIN B-12) 1,000 mcg tab Take 1,000 mcg by mouth once daily. biotin 1 mg cap Take by mouth. omega 6-fao-wct-fish oil 1,000 mg (250 mg-750 mg)/5 mL liqd Take by mouth. Magnesium 200 mg tab Take 2 tablets by mouth once daily. aspirin 81 mg chewable tablet Aspirin Active 81 MG PO Daily March 27, 2019 11:00pm isosorbide mononitrate ER (IMDUR) 30 mg 24 hr tablet Take 1 tablet by mouth once daily. ezetimibe (ZETIA) 10 mg tablet Take 1 tablet by mouth once daily. (Patient taking differently: Take 10 mg by mouth daily at bedtime.) nitroglycerin sublingual (NITROQUICK) 0.3 mg SL tablet Dissolve 1 tablet under the tongue every 5 minutes as needed for chest pain. sryfsoulvnl-ftdrclssa-miuwxmhk (TRELEGY ELLIPTA) 100-62.5-25 mcg inhalation powder Inhale 1 Puff as instructed as needed. cholecalciferol, vitamin D3, (VITAMIN D3 ORAL) Take by mouth. Ascorbic Acid (VITAMIN C) 100 mg tablet Take 100 mg by mouth once daily. acetaminophen 650 mg CR tablet Take 650 mg by mouth every 8 hours as needed. pramipexole (MIRAPEX) 0.5 mg tablet Take 0.25 mg by mouth two times a day. REVIEW OF SYSTEMS: PAIN ASSESSMENT: See HPI. GENERAL: Denies fever, chills malaise and weight loss. HEENT: No recent change in vision or hearing. CARDIOVASCULAR: Denies chest pain, history of A-fib, valvular disease, or pacemaker/ICD. RESPIRATORY: Denies SOB, sputum production, and hemoptysis. GI: Denies GI ulcers, inflammatory disease, or liver disease. : Denies change in frequency or urgency, kidney disease, and burning with urination. MUSCULOSKELETAL: Negative for joint pain or swelling, back pain or muscle pain. SKIN: Denies rash or itching. PSYCHOLOGICAL: Denies uncontrolled depression or anxiety. NEURO: Denies CVA, seizures, headaches. ENDOCRINE: Denies diabetes, thyroid disease. HEMATOLOGY/LYMPHOLOGY: Denies cancer, bleeding or clotting disorders, anemia,and DVT's. ALLERGIC/IMMUNOLOGICAL: Denies risks for infection, or recent MRSA infections. Patient Entered Questionnaires PROMIS Score Percentiles 02/29/2024 03/28/2024 Physical Health Physical Function Percentile 31 21* 12/04/2020 10/18/2023 02/29/2024 PROMIS Global Health Scale Physical Health Percentile 22* 78 41 Mental Health Percentile 53 73 34 Percentiles provide an indication of how the patient's score ranks in relation to the general population. Higher percentile rankings indicate better function/quality of life. 50th percentile is the average of the general population and indicates half of respondents had a worse score. Depression Screenin07/16/2020 12/04/2020 PHQ-9 Score 0 0 07/16/2020 12/04/2020 PHQ-9 Self-harm Question Question 9 Not at all Not at all PHQ-9 Self-Harm (Item 9) response options: 0 Not at all 1 Several days 2 More than half the days 3 Nearly every day PHQ-9 Levels: 0-4 No to mild depression 5-9 Mild depression 10-14 Moderate depression 15-19 Moderately severe depression 20-27 Severe depression OBJECTIVE: PHYSICAL EXAM BP 172/67 Pulse (!) 59 Temp (!) 35.8 C (96.4 F) Ht 154.9 cm (5' 1 ) Wt 70.4 kg (155 lb 3.3 oz) SpO2 95% BMI 29.33 kg/m GENERAL APPEARANCE: Well nourished, well developed, and no apparent distress. NEURO PSYCH: Patient oriented to person, place, and time. Mood pleasant. Benign affect. CARDIOVASCULAR: Palpable pulses. No edema noted. No varicosities. SKIN: Head, neck, trunk, and extremities dry, intact and without lesions. LYMPHATICS: No palpable nodes in cervical or axillae areas. Groin exam deferred. MUSCULOSKELETAL VISUAL INSPECTION CERVICAL: WNL THORACIC: WNL LUMBAR: Lumbar scar is healthy PALPATION: SPINOUS PROCESS: No pain. PARASPINALS: No pain. MUSCLE BULK: Normal and symmetrical in the upper & lower extremities. MUSCLE TONE: Normal. MOTOR: 5/5 in all muscle groups. SENSORY: Normal sensory exam GAIT: Antalgic. REFLEXES: +2 to bilateral U/L extremities. PROPRIOCEPTION: Normal. LONG TRACT SIGNS: No clonus. No Hoffmans. STRAIGHT LEG TEST: Ipsilateral: Negative. Contralateral: Negative. L'HERMITTES SIGN: Not tested. SPURLING'S TEST: Not tested. NEURO TESTS: Cranial Nerves: Normal mood and affect. CNII-XII grossly intact. DATA REVIEW [facility] records independently reviewed Images independently reviewed with the patient STUDY: MR LUMBAR SPINE WO CONT HISTORY: Chronic midline low back pain with bilateral sciatica; Scoliosis of lumbar spine, unspecified scoliosis type; Spinal stenosis of lumbar region with neurogenic claudication; Radiculopathy, lumbar region; Lumbar pain TECHNIQUE: * Routine multiplanar multisequence MR imaging of the lumbar spine was performed without intravenous contrast. FINDINGS: Comparison is made to 05/17/2024. Levoconvex curvature of the lumbar spine. Mild lateral listhesis of L4 on L5. Nonacute height loss at the T12, L1, L2 and L3 endplates with some STIR hyperintense signal changes may reflect subacute fractures. Chronic superior endplate fractures of T12, L1, L2, with biconcave endplate fracture at L3. No evidence of acute fracture or traumatic malalignment. Moderate to severe degenerative spondylosis with intervertebral disc space narrowing most significant at L4-L5 and there is degenerative endplate changes and significant intervertebral disc space narrowing as well as disc herniation. Conus medullaris terminates at the level of L2. No distal cord signal abnormality. Cauda equina nerve roots are broadly unremarkable by technique. T12-L1: Mild diffuse disc bulge, mild facet arthropathy without significant spinal canal or neuroforaminal narrowing. L1-L2: Kycn-lk-ckzdoiua diffuse disc bulge, facet arthropathy with ymro-zv-xfxcxvhx right neuroforaminal narrowing. No significant spinal canal narrowing. L2-L3: Mild diffuse disc bulge, mild facet arthropathy with mild right neuroforaminal narrowing. L3-L4: Mild diffuse disc bulge, mild ligamentum flavum hypertrophy and facet arthropathy, dorsal epidural lipomatosis, results in mild spinal canal narrowing with mild bilateral neuroforaminal narrowing. L4-L5: Moderate diffuse disc bulge, mild facet arthropathy with suggestion of left hemilaminectomy changes. No significant spinal canal narrowing. Moderate left greater than right neuroforaminal narrowing. L5-S1: Mild diffuse disc bulge, left hemilaminectomy changes without significant spinal canal narrowing. Severe left and no significant right neuroforaminal narrowing. Diverticulosis without diverticulitis. IMPRESSION: * Subacute endplate fractures at T12-L3, new or progressed since 05/17/2024. No significant retropulsion. * Apparent left hemilaminectomy changes at L4-L5 and L5-S1. * Significant left neuroforaminal narrowing at left L5-S1 and to a lesser extent L4-L5. * Scoliosis and degenerative spondylosis as described. DATE OF EXAM: Apr 30 2024 5:23PM [facility] 0481 - CT LUMBAR SPINE W RECON DATA -NB / PROCEDURE REASON: Lumbar radiculopathy, cancer or infection suspected * * * * Physician Interpretation * * * * EXAMINATION: CT LUMBAR SPINE W RECON DATA -NB CLINICAL HISTORY: Lumbar radiculopathy, cancer or infection suspected TECHNIQUE: Spiral, high resolution axial unenhanced images were obtained from the thoracolumbar junction to the sacrum with sagittal and coronal planar reconstructions. MQ: [id number] CT Radiation dose: Integrated Dose-Length Product (DLP) for this visit = 291 mGy*cm. CT Dose Reduction Employed: Automated exposure control(AEC) and iterative recon COMPARISON: None. RESULT: Counting reference: Lumbosacral junction. For the purposes of this report, L4-5 is considered the level of the iliac crest and assume there are 5 lumbar-type vertebrae. Anatomic variant: None. Boat Hoist Operator Helper (topogram) images: Right hip arthroplasty. Alignment: Levoscoliosis is present centered at L3-L4 with approximately 1 cm degenerative left lateral listhesis of L4 on L5 Bone marrow /fracture: No evidence of a lytic or blastic process in the visualized spine. Diffuse osteopenia. Age-indeterminate but favored chronic fracture of the L3 vertebral body with approximately 25% right anterolateral height loss and no osseous retropulsion. Chronic postsurgical changes of L4-L5 and L5-S1 decompressive laminectomy. Paraspinal soft tissues: The paraspinal soft tissues planes are maintained. Lower thoracic spine: The visualized lower thoracic bony canal and foramina are patent. Canal and foramina: No evidence of high-grade degenerative canal stenosis. Likely left lateral recess stenosis at L5-S1 due to a disc protrusion with vacuum disc phenomenon and associated crowding of the descending left S1 nerve roots. Degenerative foraminal stenosis is most pronounced and advanced on the left at L5-S1. Degenerative disc disease is most pronounced and advanced at L4-L5, accentuated by levoscoliosis and left lateral listhesis of L4 on L5. Sacrum and iliac wings: Degenerative changes of the bilateral sacroiliac joints. Additional comments: Calcific atherosclerosis of the abdominal aorta and major branch vessels. Mosaic attenuation pattern of the lung bases compatible with small airways disease and air-trapping. Colonic diverticulosis. Marked asymmetric atrophy of the right iliopsoas. ASSESSMENT/PLAN Yani Gerard is a pleasant 83-year-old female is here in spine surgical with a history of lower back pain. Pain started few months ago without any history of injury or fall. Pain is mostly localized to lower back. Pain is constant, aggravated by standing, walking for short distance. Pain is not significantly improved with the sitting or lying down. She is sleeping in a recliner chair. Unable to sleep on a regular bed. Occasionally pain is radiating to right lower extremity. Occasionally noticing urgency incontinence of urine. No left leg pain. Denies leg numbness. Denies weakness. Denies bowel incontinence. Evaluated by multiple medical team recently: Kofi CAMPBELL 2023- MRI lumbar spine and trial of lyrica Dr. Jayden Burks in Neurology for poor balance-refer her for vestibular physical therapy. history of relatively stereotyped episodic alteration of behavior and movement. Prolonged video EEG monitoring has failed to demonstrate a definite cerebral electrographic correlate to this phenomenon -Dr Henriquez- Consult placed to Functional Movement Disorders multidisciplinary clinic continue PT and follow with psychology when able Dr Agustín Ornelas 2023 for Intracranial atherosclerotic disease and transient neurologic symptoms ; -September 2023 she experienced sudden onset left leg shaking, slurred speech and difficulty expressing herself; an2023, her symptoms happened again, although in a milder form, and lasted only about 6-7 hours. Continue dual antiplatelet therapy for 3 months, then consider Plavix monotherapy long-term afterwards. Aggressive medical management of underlying vascular risk factors. -Right JULIANNA revision by Dr Morse in [facility] 12/2021, 12/2020 -Left Heart Catheterization by Dr Allen 05/2023 Tried Medrol Dosepak without much pain relief. On record 25 mg 3 times a day, oxycodone IR every 4 hours, diclofenac gel, Robaxin 4 times a day. All medications helps only minimal pain. Received right trochanteric bursa injection without any pain relief. Known history of osteoporosis, on Prolia for at least 2 years. Last BMD done in 2020. BMD done on 2022 however she not completed it. Underwent left L4 and 5 laminectomy in 2009 at the [facility]. Neurological examination showed antalgic gait, on wheelchair. No focal motor weakness. No spine tenderness. Lumbar scar is healthy. MRI lumbar spine showed subacute endplate fracture at the T12-L3 level. Left hemilaminectomy changes at L4-5, L5-S1 level. Left neural foraminal narrowing at L5-S1 and L4-5 level. Mild right L4-5 foraminal stenosis. Degenerative scoliosis. No significant canal stenosis. Discussed clinical, imaging finding. Showed images and explained detail. Some of her pain is related to foraminal stenosis more than compression fracture. Look like compression fracture is subacute to chronic in nature. Considering no spine tenderness, I do not think she require cement augmentation for subacute compression fracture. Discussed treatment option for lower back and right leg pain which includes continue conservative treatment with back exercise, physical therapy, pain medication, right L4-5, L5-S1 transferral epidural injection. Recommended right L4-5, L5-S1 transferral epidural injection. Epidural injection consult placed. Recommended to continue pain medication, muscle relaxers at this time. BMD ordered. Follow-up in spine surgery clinic at 4 weeks after completion of injection. The majority of the visit was spent counseling and/or coordinating care for the patient. The patient was counseled regarding lower back pain, leg pain, walking difficulty, chronic pain, lumbar spondylosis, lumbar foraminal stenosis, compression fracture, osteoporosis, osteoporosis management, PMD, Lyrica, pain medications, epidural injection. Total face to face time was 45 minutes. SIGNATURE: John Weathers MD PATIENT NAME: Yani Gerard DATE: June 18, 2024 TIME: 10:51 AM PAGER: documented in this encounter [facility] 06-14-2024 History of Present illness Narrative Images from the original note were not included. [facility] [address] [place] [address], [address] [place] [address] * CHART NOTE ? 06/14/2024 Patient: Yani Gerard 1940 [id number] Physician: Beto Rocha CNP CHIEF COMPLAINT Follow up, lumbar. HISTORY OF PRESENT ILLNESS 83 yo female presents for a follow up visit regarding midline low back pain. Yani reports a constant pain across the low back with mild intermittent pain in the right lateral thigh. The pain is exacerbated by standing and alleviated by sitting in her Lazy Boy chair, and by taking ES tylenol, oxycodone and robaxin. Denies loss of physical therapist center manager strength, saddle anesthesia, urinary or bowel dysfunction, weakness, numbness or tingling, radicular symptoms, and loss of balance. ALLERGIES Allergies Allergen Reactions Tqfidoy-Ghu-Vds Reductase Inhibitors Sulfa (Sulfonamide Antibiotics) MEDICATIONS Current Outpatient Medications: acetaminophen (TYLENOL EXTRA STRENGTH) 500 mg tablet, Take 2 tablets (1,000 mg total) by mouth., Disp: , Rfl: amLODIPine (NORVASC) 10 mg tablet, Take 1 tablet (10 mg total) by mouth. (Patient not taking: Reported on 06/11/2024), Disp: , Rfl: ascorbic acid, vitamin C, (VITAMIN C) 100 MG tablet, Take 1 tablet (100 mg total) by mouth in the morning., Disp: , Rfl: aspirin 81 mg, Take 1 tablet (81 mg total) by mouth., Disp: , Rfl: benzonatate (TESSALON PERLES) 100 mg capsule, Take 1 capsule (100 mg total) by mouth 3 (three) times a day as needed., Disp: , Rfl: biotin 1 mg capsule, Take by mouth., Disp: , Rfl: calcium citrate (CALCITRATE) 200 mg (950 mg) tablet, Take 3 tablets (600 mg total) by mouth., Disp: , Rfl: cefDINIR (OMNICEF) 300 mg capsule, Take 1 capsule (300 mg total) by mouth., Disp: , Rfl: CEPHalexin (KEFLEX) 500 mg capsule, TAKE 1 CAPSULE BY MOUTH TWICE DAILY FOR 7 (SEVEN) DAYS, Disp: , Rfl: cholecalciferol, vitamin D3, (VITAMIN D3) 5,000 units capsule, Take 1 capsule (5,000 Units total) by mouth., Disp: , Rfl: ciprofloxacin HCl (CIPRO) 250 mg tablet, , Disp: , Rfl: clonazePAM (KlonoPIN) 0.5 mg tablet, Take 1 tablet (0.5 mg total) by mouth once daily at bedtime., Disp: , Rfl: clopidogreL (PLAVIX) 75 mg tablet, Take 1 tablet (75 mg total) by mouth., Disp: , Rfl: cyanocobalamin 1000 MCG tablet, Take 1 tablet (1,000 mcg total) by mouth in the morning., Disp: , Rfl: cyclobenzaprine (FLEXERIL) 5 mg tablet, Take 1 tablet (5 mg total) by mouth 3 (three) times a day as needed., Disp: , Rfl: diclofenac sodium (VOLTAREN) 1 % gel, Apply 4 g topically in the morning and 4 g at noon and 4 g in the evening and 4 g before bedtime., Disp: , Rfl: DOCOSAHEXAENOIC ACID ORAL, Take by mouth., Disp: , Rfl: evolocumab (REPATHA SURECLICK) 140 mg/mL pen injector, INJECT 140mg EVERY 2 (TWO) weeks, Disp: , Rfl: ezetimibe (ZETIA) 10 mg tablet, Take 1 tablet (10 mg total) by mouth., Disp: , Rfl: furosemide (LASIX) 40 mg tablet, Take 1 tablet (40 mg total) by mouth 2 (two) times a day., Disp: , Rfl: ibuprofen (ADVIL,MOTRIN) 200 mg tablet, Take 2 tablets (400 mg total) by mouth in the morning and 2 tablets (400 mg total) at noon and 2 tablets (400 mg total) in the evening and 2 tablets (400 mg total) before bedtime., Disp: , Rfl: ibuprofen (MOTRIN) 800 mg tablet, Take 1 tablet (800 mg total) by mouth every 6 (six) hours as needed., Disp: , Rfl: isosorbide mononitrate (IMDUR) 30 mg 24 hr tablet, Take 1 tablet (30 mg total) by mouth., Disp: , Rfl: levETIRAcetam (KEPPRA) 500 mg tablet, Twice daily, Disp: , Rfl: losartan (COZAAR) 25 mg tablet, Take 1 tablet (25 mg total) by mouth., Disp: , Rfl: magnesium 200 mg tablet, Take 400 mg by mouth in the morning., Disp: , Rfl: magnesium aspart,citrate,oxide 400 mg magnesium capsule, 1 (one) time each day at the same time., Disp: , Rfl: magnesium oxide (MAGOX) 400 mg tablet, Take 1 tablet (400 mg total) by mouth., Disp: , Rfl: mecobalamin, vitamin B12, 1,000 mcg tablet,chewable, Daily, Disp: , Rfl: meloxicam (MOBIC) 7.5 mg tablet, TAKE 1 TABLET BY MOUTH EVERY DAY for 14 days, Disp: , Rfl: methocarbamoL (ROBAXIN) 750 mg tablet, Take 1 tablet (750 mg total) by mouth every 6 (six) hours as needed., Disp: , Rfl: metoprolol succinate XL (TOPROL XL) 25 mg 24 hr tablet, Take 2 tablets (50 mg total) by mouth., Disp: , Rfl: nitrofurantoin, macrocrystal-monohydrate, (MACROBID) 100 mg capsule, Apply 1 capsule (100 mg total) to the mouth or throat., Disp: , Rfl: nitroglycerin (NITROSTAT) 0.4 MG SL tablet, See administration instructions., Disp: , Rfl: omeprazole (PriLOSEC) 40 mg capsule, TAKE 1 CAPSULE BY MOUTH ONCE DAILY 30 MINUTES before morning meal, Disp: , Rfl: ondansetron (ZOFRAN) 4 mg tablet, TAKE 2 TABLETS BY MOUTH TWICE DAILY as directed for 14 days, Disp: , Rfl: ondansetron ODT (ZOFRAN ODT) 4 mg disintegrating tablet, Dissolve 1 tablet (4 mg total) on tongue 3 (three) times a day as needed., Disp: , Rfl: oxyCODONE (ROXICODONE) 5 mg immediate release tablet, TAKE 1 TABLET BY MOUTH EVERY 4 HOURS NEEDED FOR SEVERE PAIN, Disp: , Rfl: phenazopyridine (PYRIDIUM) 100 mg tablet, TAKE 1 TABLET AFTER MEALS BY MOUTH THREE TIMES DAILY, Disp: , Rfl: polyethylene glycol (GLYCOLAX) 17 gram/dose powder, polyethylene glycol 3350 17 gram oral powder packet mix and TAKE 1 PACKET EVERY DAY FOR 14 DAYS, Disp: , Rfl: polyethylene glycol-electrolytes (NULYTELY) 420 gram solution, See Admin Instructions., Disp: , Rfl: potassium chloride (K-TAB,KLOR-CON) 10 MEQ CR tablet, Take 1 tablet (10 mEq total) by mouth in the morning., Disp: , Rfl: potassium chloride (KLOR-CON M 20) 20 MEQ CR tablet, Take 1 tablet (20 mEq total) by mouth in the morning., Disp: , Rfl: pramipexole (MIRAPEX) 0.5 mg tablet, Take 1 tablet (0.5 mg total) by mouth., Disp: , Rfl: pregabalin (LYRICA) 25 mg capsule, Take 1 capsule (25 mg total) by mouth in the morning and 1 capsule (25 mg total) before bedtime., Disp: , Rfl: ranolazine (RANEXA) 1,000 mg 12 hr tablet, Take 1 tablet (1,000 mg total) by mouth., Disp: , Rfl: SYNTHROID 50 mcg tablet, , Disp: , Rfl: triamcinolone (KENALOG) 0.1 % cream, APPLY TO THE AFFECTED AREA(S) TWICE DAILY NEEDED, Disp: , Rfl: trospium (SANCTURA XR) 60 mg capsule,extended release 24hr, TAKE 1 CAPSULE BY MOUTH EVERY DAY AT BEDTIME, Disp: , Rfl: VITAL SIGNS There were no vitals taken for this visit. PHYSICAL EXAMINATION Alert Oriented No percussion tenderness along spine ROM of the low back is decreased 4/5 bilateral quadriceps weakness No pathological reflexes No atrophy No fasciculations Sensation to light touch is decreased in the right lateral thigh Gait is antalgic JOHNNY is negative SLR is negative MRI / IMAGES Scoliosis x-rays 06/11/24 Narrative & Impression History: Chronic midline low back pain with bilateral sciatica; Scoliosis of lumbar spine, unspecified scoliosis type XR SPINE SCOLIOSIS 2 OR 3 VWS Comparison: none Impression: * Moderate left convex curvature T12-L4 measuring 22.1 degrees. * Moderate compression fracture at the lower thoracic spine approximately T11 and T12 level which appear new compared to MRI from May 17. Compression fracture at L3 is unchanged. IMPRESSION / PLAN 83 yo female presents for a follow up visit regarding midline low back pain. Yani reports a constant pain across the low back with mild intermittent pain in the right lateral thigh. The pain is exacerbated by standing and alleviated by sitting in her Lazy Boy chair, and by taking ES tylenol, oxycodone and robaxin. Will obtain new lumbar MRI per Dr. Guerin, Neurosurgeon request. Previous lumbar MRI from 05/17/24 is poor quality. New MRI needed STAT for possible surgical planning. Patient to follow up with Dr. Guerin once MRI is completed. Electronically Signed By: Beto Rocha CNP This note was created with the assistance of a speech recognition program with the goal of generating a timely record of the patient encounter. Inadvertent computerized cyber security systems engineer errors related to syntax, spelling, homophones, and/or inaudibility may be present. ELLIS Tan 06/14/24 1213 documented in this encounter [facility] 06-14-2024 Instructions Latasha Tidwell CMA - 06/14/2024 10:15 AM EDT Patient was seen today by Joshua Patient will follow up after MRI KK documented in this encounter [facility] 06-12-2024 Miscellaneous Notes My in scheduling was able to get patient in with Bertha Rocha on 06/14/2024 sks Patient's was also directed to contact her PCP for help with pain control in the meantime,.Martin Alvarez documented in this encounter [facility] 06-12-2024 Telephone encounter Note My in scheduling was able to get patient in with Bertha Rocha on 06/14/2024 sks Patient's was also directed to contact her PCP for help with pain control in the meantime,.Martin Alvarez [facility] 06-12-2024 Miscellaneous Notes Patient's called back today in hopes to get a sooner appointment with Dr Guerin to have his 's scoliosis xray reviewed and for a treatment plan. Patient is in a lot of pain. Reached out to My in scheduling to see if she had any options for a sooner appt. uvaldo documented in this encounter [facility] 06-12-2024 Telephone encounter Note Patient's called back today in hopes to get a sooner appointment with Dr Guerin to have his 's scoliosis xray reviewed and for a treatment plan. Patient is in a lot of pain. Reached out to My in scheduling to see if she had any options for a sooner appt. sks [facility] 06-12-2024 Note HNO ID: [id number] Author: JAYDEN BURKS MD Service: ? 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 Of more concern is chronic right-sided low back pain which has been problematic for about the last 2 months. This evolved in the absence of any antecedent or otherwise associated strain, sprain or trauma. Initially this was localized to the groin but subsequently shifted to the right side of the low back. This may radiate into the right buttock and perhaps the proximal right thigh. She is found lying supine in a recliner comfortable. For some reason sleeping in a bed is quite problematic and with weightbearing there may be some transient improvement before worsening of the symptoms. Concern has been raised with regard to the possibility of a recent vertebral fracture. Today on examination she is awake, alert, pleasant, cooperative and coherent. Cranial Nerves: II-visual mario full III IV -extraocular movements normal VII-muscles of facial expression normal in power bilaterally. Motor System: The tendon reflexes are symmetric. Strength in the deltoids, biceps, triceps, wrist extensors, finger extensors, interossei, iliopsoas, quadriceps, hamstrings, anterior tibialis and toe extensors is well-preserved. Other Observations: A bit of tenderness may be present in the right sided lumbar paraspinal musculature. In summary, her main problem currently is chronic pain as previously delineated. I have encouraged her not to initiate any invasive treatments. A follow-up visit has been scheduled. 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 Of more concern is chronic right-sided low back pain which has been problematic for about the last 2 months. This evolved in the absence of any antecedent or otherwise associated strain, sprain or trauma. Initially this was localized to the groin but subsequently shifted to the right side of the low back. This may radiate into the right buttock and perhaps the proximal right thigh. She is found lying supine in a recliner comfortable. For some reason sleeping in a bed is quite problematic and with weightbearing there may be some transient improvement before worsening of the symptoms. Concern has been raised with regard to the possibility of a recent vertebral fracture. Today on examination she is awake, alert, pleasant, cooperative and coherent. Cranial Nerves: II-visual mario full III IV -extraocular movements normal VII-muscles of facial expression normal in power bilaterally. Motor System: The tendon reflexes are symmetric. Strength in the deltoids, biceps, triceps, wrist extensors, finger extensors, interossei, iliopsoas, quadriceps, hamstrings, anterior tibialis and toe extensors is well-preserved. Other Observations: A bit of tenderness may be present in the right sided lumbar paraspinal musculature. In summary, her main problem currently is chronic pain as previously delineated. I have encouraged her not to initiate any invasive treatments. A follow-up visit has been scheduled. documented in this encounter [facility] 06-11-2024 Miscellaneous Notes Patients calls and leaves a message. 1. Frederic Lomeli's appointment was at 11:30 and was not seen until 13:30. 2.Xray that was ordered at today's visit was done. 3.Yani's medications were not addressed and what is she to do with intense pain she is having. The voicemail message was forward to the hazard mitigation officer. documented in this encounter [facility] 06-11-2024 Telephone encounter Note Patients calls and leaves a message. 1. Frederic Lomeli's appointment was at 11:30 and was not seen until 13:30. 2.Xray that was ordered at today's visit was done. 3.Yani's medications were not addressed and what is she to do with intense pain she is having. The voicemail message was forward to the hazard mitigation officer. [facility] 05-31-2024 Telephone encounter Note Received referral from dr Pham to see pt CAROL [facility] 05-31-2024 Miscellaneous Notes Received referral from dr Pham to see pt CAROL documented in this encounter [facility] 05-29-2024 Note HNO ID: [id number] Author: FIONA HARKINS MD Service: ? Author Type: Physician Type: Progress Notes Filed: 05/29/2024 11:36 Note Text: [facility] Department of Cardiovascular Medicine [facility] OUTPATIENT VISIT DATE May 29, 2024 OUTPATIENT VISIT TYPE Established Patient PRIMARY CARE PHYSICIAN: Kyle Sifuentes [address] [place] [id number] REFERRING PHYSICIAN: Kyle Sifuentes [address] [place] [phone] CHIEF COMPLAINT: Followup HISTORY OF PRESENT ILLNESS: Ms. Gerard is a 83 year old female who presents today with cor stenting and afib short lived with no recurrence. She has had severe right lower back pain, crippling seen in [place] awaiting possible back surgery . . She denies chest pain, shortness of breath, orthopnea, cough, edema, palpitations, PND, lightheadedness or syncope. PROBLEM LIST: Specialty Problems Cardiology Problems HTN (hypertension) Hyperlipidemia CAD (coronary artery disease) Pulmonary hypertension (HCC) Paroxysmal supraventricular tachycardia (HCC) Unstable angina (HCC) Transient ischemic attack Bradycardia Atherosclerosis of aorta (HCC) PAST MEDICAL HISTORY No date: Arthritis No date: Atrial fibrillation (HCC) Comment: pafib short lived suspected per apple watch strip, Biotel in place 10/03/2018: Benign paroxysmal positional vertigo of right ear 03/28/2019: CAD (coronary artery disease) Comment: LAD proximal stent , RCA nondominant bifurcating severe disease small medical rx No date: Cancer (HCC) 09/24/2018: Dizziness No date: HTN (hypertension) No date: Hypertension 03/21/2019: Lumbar back pain with radiculopathy affecting left lower extremity No date: Pulmonary HTN ([facility]) No date: TIA (transient ischemic attack) Comment: left leg motion movement and slurred speech PAST SURGICAL HISTORY 03/28/2019: CC CORONARY STENT Comment: LAD prox stent , RCA nondominant bifurcating severe disease small medical rx , [facility] -No restenosis in stent lad mild disease 06/14/23 No date: POST-CATARACT LASER SURGERY; Bilateral 2016: REMV CATARACT EXTRACAP,INSERT LENS; Bilateral No date: REVISE TOTAL HIP REPLACEMENT; Right No date: TOTAL HIP REPLACEMENT; Right SOCIAL HISTORY Social History Tobacco Use Smoking status: Never Smokeless tobacco: Never Vaping Use Vaping Use: Never used Substance Use Topics Alcohol use: Yes Comment: wine occas Drug use: No FAMILY HISTORY Problem Relation Age of Onset Heart Mother heart attack Hypertension Mother Cancer Mother stomach Cancer Sister breast non smoker half sister Heart Maternal Grandmother heart attack Diabetes No Family History Cataract No Family History Glaucoma No Family History Macular Degen No Family History ALLERGIES: ALLERGIES Allergen Reactions Ropinirole Other: See Comments Other reaction(s): nausea/dizziness, blurry vision Leqwvap-Pif-Oio Red* Other: See Comments Sulfa (Sulfonamide * Rash MEDICATIONS: oxyCODONE IR (ROXICODONE) 5 mg immediate release tablet Take 5 mg by mouth every 4 hours as needed. ibuprofen (MOTRIN ORAL) Take by mouth. diclofenac (VOLTAREN ARTHRITIS PAIN) 1 % topical gel Apply 4 g to affected area four times daily. methocarbamol (ROBAXIN) 750 mg tablet Take 1 tablet by mouth four times a day as needed. ranolazine SR (RANEXA) 1,000 mg tab ER 12 hr Take 1 tablet by mouth two times a day. potassium chloride ER (KLOR-CON) 20 mEq tablet Take 1 tablet by mouth once daily. evolocumab (REPATHA SURECLICK) 140 mg/mL pen injector Inject 140 mg subcutaneously as directed. Inject 1 pen subcu every 2 wks metoprolol succinate ER (TOPROL XL) 50 mg 24 hr tablet Take 0.5 tablet by mouth once daily. losartan (COZAAR) 25 mg tablet Take 2 tablets by mouth two times a day. levothyroxine (SYNTHROID) 50 mcg tablet Take 1 tablet by mouth daily at 6:00 am. Patient should start on December 12, 2023. INV VITAMIN D3 5000 UNITS CAPSULE (IRB 19-1548) Take 5,000 Units by mouth once daily. For Investigational Drug Use Only. PI: Stevan Lozoya, PhD. Take one capsule by mouth daily for 3 months prior to surgery and 3 months after surgery. cyanocobalamin (VITAMIN B-12) 1,000 mcg tab Take 1,000 mcg by mouth once daily. biotin 1 mg cap Take by mouth. omega 2-cod-jli-fish oil 1,000 mg (250 mg-750 mg)/5 mL liqd Take by mouth. Magnesium 200 mg tab Take 2 tablets by mouth once daily. aspirin 81 mg chewable tablet Aspirin Active 81 MG PO Daily March 27, 2019 11:00pm isosorbide mononitrate ER (IMDUR) 30 mg 24 hr tablet Take 1 tablet by mouth once daily. ezetimibe (ZETIA) 10 mg tablet Take 1 tablet by mouth once daily. (Patient taking differently: Take 10 mg by mouth daily at bedtime.) nitroglycerin sublingual (NITROQUICK) 0.3 mg SL tablet Dissolve 1 tablet under t (more content not included)... [facility] 05-29-2024 History of Present illness Narrative Images from the original note were not included. [facility] Department of Cardiovascular Medicine [facility] OUTPATIENT VISIT DATE May 29, 2024 OUTPATIENT VISIT TYPE Established Patient PRIMARY CARE PHYSICIAN: Kyle Amin [address] [facility] [address] [place] [address] REFERRING PHYSICIAN: Kyle Amin [address] [facility] [id number] CHIEF COMPLAINT: Followup HISTORY OF PRESENT ILLNESS: Ms. Gerard is a 83 year old female who presents today with cor stenting and afib short lived with no recurrence. She has had severe right lower back pain, crippling seen in [place] awaiting possible back surgery . . She denies chest pain, shortness of breath, orthopnea, cough, edema, palpitations, PND, lightheadedness or syncope. PROBLEM LIST: Specialty Problems Cardiology Problems HTN (hypertension) Hyperlipidemia CAD (coronary artery disease) Pulmonary hypertension (HCC) Paroxysmal supraventricular tachycardia (HCC) Unstable angina (HCC) Transient ischemic attack Bradycardia Atherosclerosis of aorta (HCC) PAST MEDICAL HISTORY No date: Arthritis No date: Atrial fibrillation (HCC) Comment: pafib short lived suspected per apple watch strip, Biotel in place 10/03/2018: Benign paroxysmal positional vertigo of right ear 03/28/2019: CAD (coronary artery disease) Comment: LAD proximal stent , RCA nondominant bifurcating severe disease small medical rx No date: Cancer (HCC) 09/24/2018: Dizziness No date: HTN (hypertension) No date: Hypertension 03/21/2019: Lumbar back pain with radiculopathy affecting left lower extremity No date: Pulmonary HTN (HCC) No date: TIA (transient ischemic attack) Comment: left leg motion movement and slurred speech PAST SURGICAL HISTORY 03/28/2019: CC CORONARY STENT Comment: LAD prox stent , RCA nondominant bifurcating severe disease small medical rx , [facility] -No restenosis in stent lad mild disease 06/14/23 No date: POST-CATARACT LASER SURGERY; Bilateral 2016: REMV CATARACT EXTRACAP,INSERT LENS; Bilateral No date: REVISE TOTAL HIP REPLACEMENT; Right No date: TOTAL HIP REPLACEMENT; Right SOCIAL HISTORY Social History Tobacco Use Smoking status: Never Smokeless tobacco: Never Vaping Use Vaping Use: Never used Substance Use Topics Alcohol use: Yes Comment: wine occas Drug use: No FAMILY HISTORY Problem Relation Age of Onset Heart Mother heart attack Hypertension Mother Cancer Mother stomach Cancer Sister breast non smoker half sister Heart Maternal Grandmother heart attack Diabetes No Family History Cataract No Family History Glaucoma No Family History Macular Degen No Family History ALLERGIES: ALLERGIES Allergen Reactions Ropinirole Other: See Comments Other reaction(s): nausea/dizziness, blurry vision Gbormbe-Hbe-Mnr Red* Other: See Comments Sulfa (Sulfonamide * Rash MEDICATIONS: oxyCODONE IR (ROXICODONE) 5 mg immediate release tablet Take 5 mg by mouth every 4 hours as needed. ibuprofen (MOTRIN ORAL) Take by mouth. diclofenac (VOLTAREN ARTHRITIS PAIN) 1 % topical gel Apply 4 g to affected area four times daily. methocarbamol (ROBAXIN) 750 mg tablet Take 1 tablet by mouth four times a day as needed. ranolazine SR (RANEXA) 1,000 mg tab ER 12 hr Take 1 tablet by mouth two times a day. potassium chloride ER (KLOR-CON) 20 mEq tablet Take 1 tablet by mouth once daily. evolocumab (REPATHA SURECLICK) 140 mg/mL pen injector Inject 140 mg subcutaneously as directed. Inject 1 pen subcu every 2 wks metoprolol succinate ER (TOPROL XL) 50 mg 24 hr tablet Take 0.5 tablet by mouth once daily. losartan (COZAAR) 25 mg tablet Take 2 tablets by mouth two times a day. levothyroxine (SYNTHROID) 50 mcg tablet Take 1 tablet by mouth daily at 6:00 am. Patient should start on December 12, 2023. INV VITAMIN D3 5000 UNITS CAPSULE (IRB [id number]) Take 5,000 Units by mouth once daily. For Investigational Drug Use Only. PI: Stevan Lozoya, PhD. Take one capsule by mouth daily for 3 months prior to surgery and 3 months after surgery. cyanocobalamin (VITAMIN B-12) 1,000 mcg tab Take 1,000 mcg by mouth once daily. biotin 1 mg cap Take by mouth. omega 6-doi-csx-fish oil 1,000 mg (250 mg-750 mg)/5 mL liqd Take by mouth. Magnesium 200 mg tab Take 2 tablets by mouth once daily. aspirin 81 mg chewable tablet Aspirin Active 81 MG PO Daily March 27, 2019 11:00pm isosorbide mononitrate ER (IMDUR) 30 mg 24 hr tablet Take 1 tablet by mouth once daily. ezetimibe (ZETIA) 10 mg tablet Take 1 tablet by mouth once daily. (Patient taking differently: Take 10 mg by mouth daily at bedtime.) nitroglycerin sublingual (NITROQUICK) 0.3 mg SL tablet Dissolve 1 tablet under the tongue every 5 minutes as needed for chest pain. rhrjbetexbm-sleiwjuff-xclczhmq (TRELEGY ELLIPTA) 100-62.5-25 mcg inhalation powder Inhale 1 Puff as instructed as needed. cholecalciferol, vitamin D3, (VITAMIN D3 ORAL) Take by mouth. Ascorbic Acid (VITAMIN C) 100 mg tablet Take 100 mg by mouth once daily. acetaminophen 650 mg CR tablet Take 650 mg by mouth every 8 hours as needed. pramipexole (MIRAPEX) 0.5 mg tablet Take 0.25 mg by mouth two times a day. furosemide (LASIX) 40 mg tablet Take 1 tablet by mouth two times a day. pregabalin (LYRICA) 25 mg capsule Take 1 capsule by mouth two times a day for 90 days. REVIEW OF SYSTEMS: GENERAL: Negative for: Weight loss or gain, Fever or Chills, Weakness and Sleep difficulties. HEENT: Negative for: Headache, Impaired Vision, Glasses, Hearing Impairment, Ringing in Ears, Nosebleeds, Poor dental care, Bleeding Gums, Dentures NECK: Negative for: Swelling, Pain, Stiffness RESPIRATORY: Negative for: Cough, Blood in Sputum, Shortness of breath, Wheezing, Apnea GASTROINTESTINAL: Negative for: Trouble swallowing, Heartburn, Change in bowel habits, Blood in stool, Dark black stools MUSCULOSKELETAL: Negative for: Muscle or joint pain, Stiffness , Joint swelling NEUROLOGIC/PSYCHIATRIC: Negative for: Weakness, Paralysis, Numbness, Tingling, Tremor, Nervousness, Depressed mood, Memory loss SKIN: Negative for: Rashes, Itching HEMATOLOGICAL/LYMPHATIC: Negative for: Easy bruising , Easy bleeding ENDOCRINE: Negative for: Heat or cold intolerance, Excessive sweating, Frequent urination, Frequent thirst I personally interviewed, confirmed and edited the above information if obtained by others. PHYSICAL EXAMINATION: BP 156/69 Pulse 72 Ht 154.9 cm (5' 1 ) Wt 74.6 kg (164 lb 7.4 oz) BMI 31.08 kg/m General: Well appearing, in no acute distress. Skin: No clubbing, no cyanosis. Neck: No jugular venous distention, no carotid bruits, carotids have a normal upstroke, no palpable thyromegaly. Lungs: Clear to auscultation bilaterally, no wheezing or rhonchi. Heart: Regular rhythm, PMI not displaced, S1, S2 normal, no S3, no S4, no heaves, no rub and 3/6 systolic murmur. Abdomen: Soft, nontender, bowel sounds normal, no palpable organomegaly, no bruits. Extremities: No peripheral edema . Neuro: Oriented to person, place and time, alert, cooperative, gait coordinated. CARDIOVASCULAR MEDICINE TESTING: No Cardiovascular testing perfomed today. I have personally reviewed the PATIENT: Name: MRS. YANI GERARD Age: 83 years Gender: F CONCLUSIONS: 1. SPECT Perfusion Study: Normal. 2. There is no scintigraphic evidence for inducible ischemia. 3. No evidence of scarred myocardium. 4. Left ventricle is normal in size. The left ventricle systolic function is normal. 5. Right ventricle is normal in size. The right ventricle systolic function is normal. 6. This is a low risk scan. Gated Stress FBP LVEF % 69 . ONCLUSIONS: - Exam indication: Shortness of Breath - The left ventricle is normal in size. There is mild concentric left ventricular hypertrophy. Left ventricular systolic function is normal. EF = 65 5% (2D biplane) Indeterminate left ventricular diastolic dysfunction due to severe mitral annular calcification. - The right ventricle is normal in size. Right ventricular systolic function is normal. - The left atrial cavity is moderately dilated. Mild to moderate is seen - The patient has not had a prior CC echocardiographic exam for comparison. ESSION: Ms. Gerard is a 83 year old female with cor stenting , no chest pain / angina with normal recent nuclear stress test . Patient is optimized and at an acceptable risk for back surgery and may proceed from the cardiac standpoint recognizing she remain on the aspirin 81mg as LAD proximal stent as well as RCA stent. . PLAN AND RECOMMENDATIONS: (Z01.810) Preop cardiovascular exam Comment: Patient is optimized and at an acceptable risk for back surgery and may proceed from the cardiac standpoint recognizing she remain on the aspirin 81mg as LAD proximal stent as well as RCA stent. CONTACT INFORMATION: MD Kyle Neff and [facility] Department of Cardiovascular Medicine [facility] [address] [place] [address] [address] [place] [address] documented in this encounter [facility] 05-23-2024 Procedure note UNIVERSAL PROTOCOL / SAFETY CHECKLIST Procedure to be Performed: bilateral greater trochanteric bursa injection with Ultrasound guidance Sign In: A Moment of CARE was completed. Personnel directly involved with the procedure wore the appropriate PPE (Personal Protective Equipment). Patient/Surrogate Stated/Verified: PATIENT VERIFIED(optional for EMERGENT procedures): Patient name, Date of , Relevant allergies, and The intended procedure Time Out Communication: Intended patient and procedure match the source documents. Consent documented and matches the intended procedure. Sign Out: SIGN OUT (optional for EMERGENT procedures): No specimen collected. Elton Pham MD PROCEDURE NOTE: After verbal and written informed consent was obtained where patient indicated understanding of risks, benefits, and alternatives, the patient was placed in the lateral decubitus position. All relevant information was verified in timeout. After skin application of Ethyl chloride, a 22-gauge, 3.5 inch spinal needle was advanced lateral to medial over the bilaterally greater trochanter. At no time did patient complain of paresthesia during needle placement. After negative aspiration for blood, a mixture of 0.25% Marcaine 4cc and Kenalog 40mg was injected into the bilaterally trochanteric bursa. The needle was withdrawn and bandage(s) applied. The patient tolerated the procedure well and there was no evidence of procedural complications. The patient was able to ambulate upon discharge to home and was provided with home-going instructions including the use of ice. This was done with use of live Ultrasound guidance. Still had pain with lumbar flexion Elton Pham MD [facility] 05-23-2024 Procedure note UNIVERSAL PROTOCOL / SAFETY CHECKLIST Procedure to be Performed: bilateral greater trochanteric bursa injection with Ultrasound guidance Sign In: A Moment of CARE was completed. Personnel directly involved with the procedure wore the appropriate PPE (Personal Protective Equipment). Patient/Surrogate Stated/Verified: PATIENT VERIFIED(optional for EMERGENT procedures): Patient name, Date of , Relevant allergies, and The intended procedure Time Out Communication: Intended patient and procedure match the source documents. Consent documented and matches the intended procedure. Sign Out: SIGN OUT (optional for EMERGENT procedures): No specimen collected. Elton Pham MD PROCEDURE NOTE: After verbal and written informed consent was obtained where patient indicated understanding of risks, benefits, and alternatives, the patient was placed in the lateral decubitus position. All relevant information was verified in timeout. After skin application of Ethyl chloride, a 22-gauge, 3.5 inch spinal needle was advanced lateral to medial over the bilaterally greater trochanter. At no time did patient complain of paresthesia during needle placement. After negative aspiration for blood, a mixture of 0.25% Marcaine 4cc and Kenalog 40mg was injected into the bilaterally trochanteric bursa. The needle was withdrawn and bandage(s) applied. The patient tolerated the procedure well and there was no evidence of procedural complications. The patient was able to ambulate upon discharge to home and was provided with home-going instructions including the use of ice. This was done with use of live Ultrasound guidance. Still had pain with lumbar flexion Elton Pham MD [facility] documented in this encounter [facility] 05-23-2024 History of Present illness Narrative Pt has been identified by name and birthdate: Yes Allergies reviewed: Yes Medication - prescribed and OTC reviewed and updated: Yes Latex allergy: no. Have you had a recent problem with pain? Yes LOCATION: Lower back pain PAIN SCALE: 7 on a scale of 0-10 PAIN CHARACTER: aching and radiating DURATION: (How long have you had the pain?) 3 weeks FREQUENCY: (How often does the pain occur?) occurs constantly AGGRAVATING FACTORS: standing, walking, and lying ALLEVIATING FACTORS: sitting and application of heat Medications: See medication reconciliation list in [facility] MEDICATIONS: Oxycodone 5mg, tylenol 1300 mg, Robaxin How is your appetite?: normal Do you feel safe in the home? Yes Do you have concerns about falling or have you fallen in the past year? No Do you have difficulty performing or completing routine daily living activities? No Wiliam Pena Outpatient Consult Dr. Jayden Burks Today's Date: 05/23/2024 CC: LBP and RIGHT LEG PAIN Yani Gerard is a 83 year old White female who presents with h/o CAD s/p stent with pain in the lumbar spine with radiation into the right lower limb to lateral thigh Patient reports no numbness or tingling.. The onset of symptoms has been gradual and present for 3 week(s). Patient states the pain is constant and describes the pain as sharp. On a scale of 0-10, the pain today is 6. At worst, the pain is 9. Over a 24-hour period of time, the pain is worst when performing certain activities. The patient states the pain is exacerbated by walking 5-10 minutes, prolonged static positions (> 20 min) of:, standing >sitting. Pain is reduced by heat., Motrin, Tylenol, Robaxin, Oxycodone. 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 Treated for UTI. Vestibular PT at [place] 2017 for abnormality of gait, poor balance PT at 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 The patient has previously been on the following pain medications- Lyrica, oxycodone, tylenol, and robaxin . RESPONSE TO CONSERVATIVE THERAPY: No help. Previous workup: Spine MRI. Treating Physicians: Kofi CAMPBELL 2023- MRI lumbar spine and trial of lyrica Dr. Jayden Burks in Neurology for poor balance-refer her for vestibular physical therapy. history of relatively stereotyped episodic alteration of behavior and movement. Prolonged video EEG monitoring has failed to demonstrate a definite cerebral electrographic correlate to this phenomenon -Dr Henriquez- Consult placed to Functional Movement Disorders multidisciplinary clinic continue PT and follow with psychology when able Dr Agustín Ornelas 2023 for Intracranial atherosclerotic disease and transient neurologic symptoms ; -September 2023 she experienced sudden onset left leg shaking, slurred speech and difficulty expressing herself; an2023, her symptoms happened again, although in a milder form, and lasted only about 6-7 hours. Continue dual antiplatelet therapy for 3 months, then consider Plavix monotherapy long-term afterwards. Aggressive medical management of underlying vascular risk factors. -Right JULIANNA revision by Dr Morse in [facility] 12/2021, 12/2020 -Left Heart Catheterization by Dr Allen 05/2023 Prior Spinal Surgery: Left L4 and L5 laminectomy 2009 at [facility] Patient denies bowel/bladder incontinence, denies fever, denies night pain, denies unintentional weight loss, denies clumsiness of hands, feet, or dropping things. Denies any constitutional or myelopathic symptomatology. Assist Devices: cane. Pain distribution ratio: 80 % spine / 20 % limb. Valsalva sign is negative. Grocery cart sign is negative. Dermatomal distribution: L3 and L4 Gait imbalance: yes Bowel / Bladder incontinence: yes, urge Smoker: No Hours Consecutive Sleep: 2 hrs. Precipitating event: None Litigation: no ROS: Other than listed in HPI or PMHX below the patient denies any complaint of the following: night pain, joint swelling, myalgias, cough, fainting, vision or language changes, shortness of breath, chest pain, nausea, vomiting or diarrhea, rash, dysuria, seizures, excessive sweating, or bleeding problems. ALLERGIES: Ropinirole, Imllfdt-Oxk-Bow Reductase Inhibitors, and Sulfa (Sulfonamide Antibiotics) MEDICATIONS: Current Outpatient Medications Medication Sig pregabalin (LYRICA) 25 mg capsule Take 1 capsule by mouth two times a day for 90 days. diclofenac (VOLTAREN ARTHRITIS PAIN) 1 % topical gel Apply 4 g to affected area four times daily. methocarbamol (ROBAXIN) 750 mg tablet Take 1 tablet by mouth four times a day as needed. ranolazine SR (RANEXA) 1,000 mg tab ER 12 hr Take 1 tablet by mouth two times a day. potassium chloride ER (KLOR-CON) 20 mEq tablet Take 1 tablet by mouth once daily. furosemide (LASIX) 40 mg tablet Take 1 tablet by mouth two times a day. evolocumab (REPATHA SURECLICK) 140 mg/mL pen injector Inject 140 mg subcutaneously as directed. Inject 1 pen subcu every 2 wks metoprolol succinate ER (TOPROL XL) 50 mg 24 hr tablet Take 0.5 tablet by mouth once daily. losartan (COZAAR) 25 mg tablet Take 2 tablets by mouth two times a day. levothyroxine (SYNTHROID) 50 mcg tablet Take 1 tablet by mouth daily at 6:00 am. Patient should start on December 12, 2023. INV VITAMIN D3 5000 UNITS CAPSULE (IRB 19-1548) Take 5,000 Units by mouth once daily. For Investigational Drug Use Only. PI: Stevan Lozoya, PhD. Take one capsule by mouth daily for 3 months prior to surgery and 3 months after surgery. cyanocobalamin (VITAMIN B-12) 1,000 mcg tab Take 1,000 mcg by mouth once daily. biotin 1 mg cap Take by mouth. omega 8-ryy-lvr-fish oil 1,000 mg (250 mg-750 mg)/5 mL liqd Take by mouth. Magnesium 200 mg tab Take 2 tablets by mouth once daily. aspirin 81 mg chewable tablet Aspirin Active 81 MG PO Daily March 27, 2019 11:00pm isosorbide mononitrate ER (IMDUR) 30 mg 24 hr tablet Take 1 tablet by mouth once daily. ezetimibe (ZETIA) 10 mg tablet Take 1 tablet by mouth once daily. (Patient taking differently: Take 10 mg by mouth daily at bedtime.) nitroglycerin sublingual (NITROQUICK) 0.3 mg SL tablet Dissolve 1 tablet under the tongue every 5 minutes as needed for chest pain. kapadganwzd-dbophkugl-jfbnwfhp (TRELEGY ELLIPTA) 100-62.5-25 mcg inhalation powder Inhale 1 Puff as instructed as needed. cholecalciferol, vitamin D3, (VITAMIN D3 ORAL) Take by mouth. Ascorbic Acid (VITAMIN C) 100 mg tablet Take 100 mg by mouth once daily. acetaminophen 650 mg CR tablet Take 650 mg by mouth every 8 hours as needed. pramipexole (MIRAPEX) 0.5 mg tablet Take 0.25 mg by mouth two times a day. No current facility-administered medications for this visit. PAST MEDICAL HISTORY Diagnosis Date Arthritis Atrial fibrillation (HCC) pafib short lived suspected per [employer] watch strip, Biotel in place Benign paroxysmal positional vertigo of right ear 10/03/2018 CAD (coronary artery disease) 03/28/2019 LAD proximal stent , RCA nondominant bifurcating severe disease small medical rx Cancer (HCC) Dizziness 09/24/2018 HTN (hypertension) Hypertension Lumbar back pain with radiculopathy affecting left lower extremity 03/21/2019 Pulmonary HTN (HCC) TIA (transient ischemic attack) left leg motion movement and slurred speech PAST SURGICAL HISTORY Procedure Laterality Date CC CORONARY STENT 03/28/2019 LAD prox stent , RCA nondominant bifurcating severe disease small medical rx , [facility] -No restenosis in stent lad mild disease 06/14/23 POST-CATARACT LASER SURGERY Bilateral REMV CATARACT EXTRACAP,INSERT LENS Bilateral 2016 REVISE TOTAL HIP REPLACEMENT Right TOTAL HIP REPLACEMENT Right Social History Tobacco Use Smoking status: Never Smokeless tobacco: Never Vaping Use Vaping Use: Never used Substance Use Topics Alcohol use: Yes Comment: wine occas Drug use: No FAMILY HISTORY Problem Relation Age of Onset Heart Mother heart attack Hypertension Mother Cancer Mother stomach Cancer Sister breast non smoker half sister Heart Maternal Grandmother heart attack Diabetes No Family History Cataract No Family History Glaucoma No Family History Macular Degen No Family History I have confirmed and edited as necessary Past Medical, Past Surgical, Family, Social History and ROS as obtained by others. PHYSICAL EXAM Vital Signs: There were no vitals taken for this visit. GENERAL Appearance: Patient is Well nourished, well developed, with no apparent distress NEURO/Psych: Patient oriented to person, place, and time, mood pleasant, benign affect. HEART: Regular rate. LUNGS: chest expansion symmetrical. ABDOMINAL: Abdomen soft, non-tender, non-distended. SKIN: Head, neck, trunk, and extremities dry, intact and without lesions VASCULAR: Palpable pulses, no edema, cyanosis, ulcerations POSTURE: Normal Intact Spinal Curves VISUAL INSPECTION: Cervical: WNL Thoracic: WNL Lumbar: WNL Muscle Bulk: Normal and symmetrical in the upper & lower extremities. PALPATION: Spinous Process: No Pain, no pain with percussion Paraspinals: No Pain Tender Points: No MUSCLE TONE: normal GAIT: non-antalgic heel-to toe Toe Walking: Function Strength WNL . Heel Walking: Function Strength WNL . Tandem Walk: Intact. FUNCTIONAL TESTING: Bipedal Yup-xt-Aolec: Function Strength WNL . CERVICAL ROM: Flexion: Full ROM without pain Extension: Full ROM without pain Rotation Right: Full ROM without pain Rotation Left : Full ROM without pain Side-Flexion Right: Full ROM without pain Side-Flexion Left: Full ROM without pain SHOULDER: ROM: within normal limits w/o pain, LUMBAR: Flexion: Limited ROM <50% with end-range pain Extension: Full ROM without pain Right Lateral Bending: Full ROM without pain Left Lateral Bending: Full ROM without pain Oblique Extension: within normal limits w/o end-range pain EXTENSION TEST:negative SLR:negative, bilaterally. HIP/PELVIS: PSIS(SI): No Pain Left and No Pain Right FABERS: negative Gaenslen's Maneuver: negative Thigh Thrust negative Rogers's negative Stinchfield: negative Trochanteric Bursa Tenderness: positive on Right Concetta's Test (IT-Band Pathology): positive on Right HIP ROM: within normal limits w/o pain, bilaterally KNEE: no swelling, erythema SENSATION: Pin Prick & Soft Touch - normal, differentiation of sharp and light touch bilateral upper and lower limb dermatomes. REFLEXES Biceps, Triceps, Brachioradialis: 2+ Normal intact and symmetric Knee: 2+ Normal intact and symmetric Ankle: 2+ Normal intact and symmetric Long Tract Signs: Clonus negative bilateral ankles Ledezma's: negative Inverted Radial Reflex: is not present bilaterally STRENGTH Right Deltoid: 5. Left Deltoid: 5 Right Biceps: 5. Left Biceps: 5 Right Triceps: 5. Left Triceps: 5 Right Wrist Extension: 5. Left Wrist Extension: 5 Right UE Pronation: 5. Left UE Pronation: 5 Right Interossei: 5. Left Interossei: 5 Right Psoas: 5. Left Psoas: 5 Right Gluteus: 5. Left Gluteus: 5 Right Quadriceps: 5. Left Quadriceps: 5 Right DF: 5. Left DF: 5 Right EHL: 5. Left EHL: 5 Right Soleus: 5. Left Soleus: 5 Rocio's: Superficial non-anatomic tenderness: no Overreaction: no Pain on simulated maneuvers: no Straight Leg Raise test discrepancy: no Give-way weakness: no Non-dermatomal sensory loss: no DATA REVIEW: [facility] checked and validated. All prescriptions have been APPROPRIATELY filled. No suspicious activity was identified. 05/23/2024 by Elton Pham MD Oxycodone Hcl (Ir) 5 Mg Tablet #42 on 05/15/[address] [facility] Oxycodone Hcl (Ir) 5 Mg Tablet #9 on 04/30/2024 by Blanca Reyes Tramadol Hcl 50 Mg Tablet #45 on 06/09/2023 by Kyle Amin MD Personally Reviewed MRI lumbosacral on 05/17/2024 with L3 endplate deformity with edematous signal intensity changes consistent with subacute phase of fracture. Disc protrusion to right at L4-5 and to left at L5-S1. Moderate bilateral L4 and severe left L5 foraminal narrowing. Status post left L4 and L5 laminectomy defect Personally Reviewed CT lumbosacral on 04/18/2024 with left lateral listheis of L4 on L5 . Moderate left L4 and severe left L5 foraminal narrowing. Personally Reviewed Plain films lumbosacral on 03/31/2024 with degenerative scoliosis Personally Reviewed Plain films hip/pelvis on 04/18/2024 compared to 09/17/2020 with interval Right JULIANNA CTA Neck 12/09/2023, 10/12/2023 Bone Density 05/07/2021 The above imaging studies were personally reviewed with the patient. 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 OK to wear back brace for short periods when active 3) Pharmacological Management: Oxycodone per PCP 4) Spine/Surgical Interventions: hold on vertebral augmentation 5) Follow -up: 1 month(s) at [place] 6) Future treatment considerations: spine surgery. Updated bone density. Metabolic bone Greater than 45 min spent with >50% Counseling and Coordinating care, discussing/demonstrating relevant risks and benefits of spinal procedure planned and alternatives available and discussing Hurt/Harm differentiation. Patient agrees that benefits outweigh the risks. Patient instructed about medications and side effects, as well as worsening neurological symptoms and instructed to seek urgent care should these arise. Elton Pham MD [facility] The patient was seen at the request of Dr. Jayden Burks for consultation regarding problem and diagnosis delineated above. Additionally, the findings & recommendations will be communicated back to the referring physician via [employer] and/or shared electronic medical record when possible. CC: Dr. Jayden Burks Imaging Ordered: None Medical Decision Making: Problems: Moderate: 2+ stable chronic illnesses and New problem with uncertain prognosis Data: Unique source(s) for external note(s) reviewed: 3+ Unique test result(s) reviewed: 3+ Independent interpretation of test from other physician/QHCP Discussed management or test w/ external physician/QHCP/source Risk: Moderate: Drug management Medical Decision Making Level: 4 - Moderate I spent a total of 55 minutes on the date of the service which included preparing to see the patient, [id number] patient care, completing clinical documentation, obtaining and/or reviewing separately obtained history, performing a medically appropriate examination, counseling and educating the patient/family/caregiver, ordering medications, tests, or procedures, communicating with other HCPs (not separately reported), independently interpreting results (not separately reported), communicating results to the patient/family/caregiver, and care coordination (not separately reported). documented in this encounter [facility] 05-21-2024 Telephone encounter Note Images from the original note were not included. [facility]: 05/17/24 w/ MM NOV: 05/23/24 w/ Adina Lee Plan at [facility]: CT with L3 compression fx. Will check MRI, if acute we may consider referral for vertebroplasty. Will trial lyrica as well. MRI LUMBAR SPINE WO IVCON completed 05/17/24 Message Received: Today Megan Kirby PA-C Gapa, Meenakshi, RN MRI did show acute compression fracture. If they would like I can refer them to a surgeon as discussed at her visit. Called pt and left vm. Also sent msg. Awaiting reply. Yanni Love, MSN, RN [place] May 21, 2024 9:53 AM [facility] 05-21-2024 Miscellaneous Notes Images from the original note were not included. [facility]: 05/17/24 w/ MM NOV: 05/23/24 w/ Adina Lee Plan at [facility]: CT with L3 compression fx. Will check MRI, if acute we may consider referral for vertebroplasty. Will trial lyrica as well. MRI LUMBAR SPINE WO JO completed 05/17/24 Message Received: Today Megan Kirby PA-C Gapa, Meenakshi, RN MRI did show acute compression fracture. If they would like I can refer them to a surgeon as discussed at her visit. Called pt and left vm. Also sent msg. Awaiting reply. Yanni Love, MSN, RN [place] May 21, 2024 9:53 AM documented in this encounter [facility] 05-20-2024 Telephone encounter Note Noted and appreciated. Jayden Burks MD [facility] 05-20-2024 Miscellaneous Notes Noted and appreciated. Jayden Burks MD Spoke with patient with spouse also on the phone. States the following: - they had recent appointment with spine PA and were not satisfied. They have another appointment with spine med on 05/23. - currently pain continues at 10/10. - states has been ordered Oxydodone every 4 hours; tylenol 650 mg along with the Oxycodone; Methylcarbamol every 6 hours. - states that she is having such a difficult time with the pain and not sure what to do MRI Lumbar spine completed on 05/17 and per chart is now in process. Informed patient and spouse that given the above information that she should be seen in the ED for evaluation. States that they will think about it but wanted to be aware. Routed to provider for review. Patient's spouse Ines called today stating his mom is having severe lumbar pain, she is in agony and he doesn't know what to do. They would like to get guidance from Dr Burks stating he knows Hector very well. Her pain is the worst when she tries to lie down, she has to sleep in a chair. She has been to the ED, and on Monday saw Megan Kirby in Spine, he states they did not have a good experience. He prescribed Lyrica, but it made her very ill. They also drove an hour to [place] for an MRI on Monday, so they could get in carol. Per spouse, Hector is living on Tylenol, which doesn't help much. Please call Ines to advise at [phone] I spoke to patient advised of consult to spine medicine. Patient states that her pain is so severe, she does not know if she can wait for an appointment and may just go to an ER. She is aware our schedulers will contact her for appointment with spine medicine. Lm for to call office back. Dr. Burks has placed a consult for spine medicine. Patient's Ines called back today stating last night was the night from hell for Yani. She was crying from pain and could barely move . Per , her pain is in the lower spine. Please call patient to advise, he really wants to speak with someone today. . Noted and appreciated. Order filed. Jayden Burks MD Forwarded to provider. Pt Sp phoned regarding Pt back pain. Pt having extreme back pain in lower back. Pt having extreme difficulty standing, moving. Asking for sooner appt. Please call and advise. Pt phone # [phone] documented in this encounter [facility] 05-20-2024 Telephone encounter Note Spoke with patient with spouse also on the phone. States the following: - they had recent appointment with spine PA and were not satisfied. They have another appointment with spine med on 05/23. - currently pain continues at 10/. - states has been ordered Oxydodone every 4 hours; tylenol 650 mg along with the Oxycodone; Methylcarbamol every 6 hours. - states that she is having such a difficult time with the pain and not sure what to do MRI Lumbar spine completed on 05/17 and per chart is now in process. Informed patient and spouse that given the above information that she should be seen in the ED for evaluation. States that they will think about it but wanted to be aware. Routed to provider for review. [facility] 05-20-2024 Telephone encounter Note Patient's spouse Ines called today stating his mom is having severe lumbar pain, she is in agony and he doesn't know what to do. They would like to get guidance from Dr Burks stating he knows Hector very well. Her pain is the worst when she tries to lie down, she has to sleep in a chair. She has been to the ED, and on Monday saw Megan Kirby in Spine, he states they did not have a good experience. He prescribed Lyrica, but it made her very ill. They also drove an hour to [place] for an MRI on Monday, so they could get in carol. Per spouse, Hector is living on Tylenol, which doesn't help much. Please call Ines kirk gonsalves at [phone] [facility] 05-17-2024 Miscellaneous Notes Radiology Service Progress Note PATIENT NAME: Yani Gerard DATE OF SERVICE: May 17, 2024 TIME: 3:49 PM PATIENT IDENTITY VERIFICATION COMPLETED USING TWO (2) IDENTIFIERS: Name and Date of confirmed by patient verbally. FALL SCREENING: Has the patient had 2 falls in the last year or 1 fall with injury or currently using an Ambulatory Assistive Device (Walker, Cane, Wheelchair, Crutches, etc.)? No PATIENT GENDER DATA: Female. status: : No status: NO. PATIENT RELEVANT IMPLANT DATA REVIEWED: Yes PATIENT PRESENTS WITH AN IMPLANTABLE OR ATTACHED MD SENIOR RESEARCH SCIENTIST: No RADIOLOGY DEPARTMENT: MR; Exam(s) Completed: Spine: Lumbar spine PERIPHERAL IV DATA: Not applicable SIGNED BY: Mariya Lynch/Sue Nunez Imaging May 17, 2024 3:49 PM documented in this encounter [facility] 05-17-2024 Progress note Formatting of t his note might be different from the original. Radiology Service Progress Note PATIENT NAME: Yani Gerard DATE OF SERVICE: May 17, 2024 TIME: 3:49 PM PATIENT IDENTITY VERIFICATION COMPLETED USING TWO (2) IDENTIFIERS: Name and Date of confirmed by patient verbally. FALL SCREENING: Has the patient had 2 falls in the last year or 1 fall with injury or currently using an Ambulatory Assistive Device (Walker, Cane, Wheelchair, Crutches, etc.)? No PATIENT GENDER DATA: Female. status: : No status: NO. PATIENT RELEVANT IMPLANT DATA REVIEWED: Yes PATIENT PRESENTS WITH AN IMPLANTABLE OR ATTACHED MD SENIOR RESEARCH SCIENTIST: No RADIOLOGY DEPARTMENT: MR; Exam(s) Completed: Spine: Lumbar spine PERIPHERAL IV DATA: Not applicable SIGNED BY: Mariya Lynch/Sue Nunez Imaging May 17, 2024 3:49 PM [facility] 05-17-2024 Telephone encounter Note [facility]: 05/17/24 w/ MM NOV: not yet scheduled Plan at [facility]: CT with L3 compression fx. Will check MRI, if acute we may consider referral for vertebroplasty. Will trial lyrica as well. MRI LUMBAR SPINE WO IVCON scheduled for 05/31/24 CONSULT TO [facility] Per referral #[id number], MRI L Spine is showing as authorized. RN confirmed with MRI scheduling team. Fin Services # if needed is [phone]. Pt and updated via and msg. SAVITA Alonzo, RN [place] May 17, 2024 12:46 PM [facility] 05-17-2024 Miscellaneous Notes [facility]: 05/17/24 w/ MM NOV: not yet scheduled Plan at [facility]: CT with L3 compression fx. Will check MRI, if acute we may consider referral for vertebroplasty. Will trial lyrica as well. MRI LUMBAR SPINE WO IVCON scheduled for 05/31/24 CONSULT TO [facility] Per referral #[id number], MRI L Spine is showing as authorized. RN confirmed with MRI scheduling team. Fin Services # if needed is [phone]. Pt and updated via and msg. SAVITA Alonzo, RN [place] May 17, 2024 12:46 PM Negrita Mcdowell from [facility] called today regarding prior authorization for MRI. Because patient is in so much pain, [facility] is requesting that Dr. Kirby's office try to expedite the prior authorization so that the patient can have her MRI sooner than 05/31/24. To expedite the prior authorization Provider Services can be reached at [phone]. Patient's would like to be called back at [phone]. documented in this encounter [facility] 05-17-2024 Telephone encounter Note Negrita Mcdowell from [facility] called today regarding prior authorization for MRI. Because patient is in so much pain, [facility] is requesting that Dr. Kirby's office try to expedite the prior authorization so that the patient can have her MRI sooner than 05/31/24. To expedite the prior authorization Provider Services can be reached at [phone]. Patient's would like to be called back at [phone]. [facility] 05-17-2024 Note HNO ID: [id number] Author: MEGAN KIRYB PA-C Service: ? Author Type: Physician Linoleum Layer Helper Type: Progress Notes Filed: 05/17/2024 11:36 Note Text: Spine Care Path Low Back Pain - Acute (0 - 6 weeks) Initial Exam SUBJECTIVE HISTORY OF PRESENT ILLNESS: Yani Gerard is a 83 year old female who presents with a chief complaint of low back pain and is seen in consultation requested by Dr. Jayden Burks for an opinion regarding low back. My final recommendations will be communicated back to the requesting physician by way of shared medical record or letter via US mail. Patient is here with low back pain for about 3 weeks without any known injury. Pain will radiate to the anterolateral right leg. Pain is more in the lower back than the leg itself. She feels the pain is constant, worse with movement. Sitting makes the pain worse. Currently on oxicodone, tylenol, and robaxin. No loss of bowel or bladder function. States she does have osteoporosis. Other Issues Addressed at the Visit Today: None. Precipitating Event: None PAIN EVALUATION 05/17/2024 1101 Pain Level: 8 Pain Location: Back-Lower Duration Amount of Time: 6 Duration Units: Weeks Frequency: Continuous YELLOW AND BLUE FLAGS No-Neg Attitude; Back Pain is Disabling No-Avoiding Activity (for Fear of Pain) No-Depression or Anxiety Disorders No-Social Problems No-Substance Use Disorder No-Job Dissatisfaction No-Financial Disincentives Patient Entered Questionnaires PROMIS Score Percentiles 02/29/2024 03/28/2024 Physical Health Physical Function Percentile 31 21* 12/04/2020 10/18/2023 02/29/2024 PROMIS Global Health Scale Physical Health Percentile 22* 78 41 Mental Health Percentile 53 73 34 Percentiles provide an indication of how the patient's score ranks in relation to the general population. Higher percentile rankings indicate better function/quality of life. 50th percentile is the average of the general population and indicates half of respondents had a worse score. Depression Screenin07/16/2020 12/04/2020 PHQ-9 Score 0 0 07/16/2020 12/04/2020 PHQ-9 Self-harm Question Question 9 Not at all Not at all PHQ-9 Self-Harm (Item 9) response options: 0 Not at all 1 Several days 2 More than half the days 3 Nearly every day PHQ-9 Levels: 0-4 No - mild depression 5-9 Mild depression 10-14 Moderate depression 15-19 Moderately severe depression 20-27 Severe depression ACTIVE PROBLEM LIST Actinic Keratosis Other Specified Disease of Sebaceous Glands Htn (Hypertension) Hyperlipidemia Statin Myopathy Preoperative Cardiovascular Examination Cad (Coronary Artery Disease) Abnormality of Gait Clear Outcomes Study, PI: Eva Fischer MD Divergence Insufficiency Paroxysmal Supraventricular Tachycardia (Hcc) Unstable Angina (Hcc) Acquired Hypothyroidism Transient Ischemic Attack Left Hemiparesis (Hcc) Interstitial Lung Disease (Hcc) Pulmonary Hypertension (Hcc) Status Post Coronary Angioplasty Stenosis of Both Vertebral Arteries Stuttering Left Arm Weakness Tremor, Unspecified Bradycardia Atherosclerosis of Aorta (Hcc) PAST MEDICAL HISTORY Diagnosis Date Arthritis Atrial fibrillation (HCC) pafib short lived suspected per apple watch strip, Biotel in place Benign paroxysmal positional vertigo of right ear 10/03/2018 CAD (coronary artery disease) 03/28/2019 LAD proximal stent , RCA nondominant bifurcating severe disease small medical rx Cancer (HCC) Dizziness 09/24/2018 HTN (hypertension) Hypertension Lumbar back pain with radiculopathy affecting left lower extremity 03/21/2019 Pulmonary HTN (HCC) TIA (transient ischemic attack) left leg motion movement and slurred speech PAST SURGICAL HISTORY Procedure Laterality Date CC CORONARY STENT 03/28/2019 LAD prox stent , RCA nondominant bifurcating severe disease small medical rx , [facility] -No restenosis in stent lad mild disease 06/14/23 POST-CATARACT LASER SURGERY Bilateral REMV CATARACT EXTRACAP,INSERT LENS Bilateral 2015 [facility] TOTAL HIP REPLACEMENT Right TOTAL HIP REPLACEMENT Right Social History Tobacco Use Smoking status: Never Smokeless tobacco: Never Vaping Use Vaping Use: Never used Substance Use Topics Alcohol use: Yes Comment: wine occas Drug use: No FAMILY HISTORY Problem Relation Age of Onset Heart Mother heart attack Hypertension Mother Cancer Mother stomach Cancer Sister breast non smoker half sister Heart Maternal Grandmother heart attack Diabetes No Family History Cataract No Family History Glaucoma No Family History Macular Degen No Family History ALLERGIES Allergen Reactions Ropinirole Other: See Comments Other reaction(s): nausea/dizziness, blurry vision Cpnseab-Pnx-Lvx Red* Other: See Comments Sulfa (Sulfonamide * Rash CURRENT MEDICATIONS: diclofenac (VOLTAREN ARTHRITIS PAIN) 1 % topical gel Apply 4 g to affected (more content not included)... [facility] 05-17-2024 History of Present illness Narrative Spine Care Path Low Back Pain - Acute (0 - 6 weeks) Initial Exam SUBJECTIVE HISTORY OF PRESENT ILLNESS: Yani Gerard is a 83 year old female who presents with a chief complaint of low back pain and is seen in consultation requested by Dr. Jayden Burks for an opinion regarding low back. My final recommendations will be communicated back to the requesting physician by way of shared medical record or letter via [place] mail. Patient is here with low back pain for about 3 weeks without any known injury. Pain will radiate to the anterolateral right leg. Pain is more in the lower back than the leg itself. She feels the pain is constant, worse with movement. Sitting makes the pain worse. Currently on oxicodone, tylenol, and robaxin. No loss of bowel or bladder function. States she does have osteoporosis. Other Issues Addressed at the Visit Today: None. Precipitating Event: None PAIN EVALUATION 05/17/2024 1101 Pain Level: 8 Pain Location: Back-Lower Duration Amount of Time: 6 Duration Units: Weeks Frequency: Continuous YELLOW & BLUE FLAGS No-Neg Attitude; Back Pain is Disabling No-Avoiding Activity (for Fear of Pain) No-Depression or Anxiety Disorders No-Social Problems No-Substance Use Disorder No-Job Dissatisfaction No-Financial Disincentives Patient Entered Questionnaires PROMIS Score Percentiles 02/29/2024 03/28/2024 Physical Health Physical Function Percentile 31 21* 12/04/2020 10/18/2023 02/29/2024 PROMIS Global Health Scale Physical Health Percentile 22* 78 41 Mental Health Percentile 53 73 34 Percentiles provide an indication of how the patient's score ranks in relation to the general population. Higher percentile rankings indicate better function/quality of life. 50th percentile is the average of the general population and indicates half of respondents had a worse score. Depression Screenin07/16/2020 12/04/2020 PHQ-9 Score 0 0 07/16/2020 12/04/2020 PHQ-9 Self-harm Question Question 9 Not at all Not at all PHQ-9 Self-Harm (Item 9) response options: 0 Not at all 1 Several days 2 More than half the days 3 Nearly every day PHQ-9 Levels: 0-4 No - mild depression 5-9 Mild depression 10-14 Moderate depression 15-19 Moderately severe depression 20-27 Severe depression ACTIVE PROBLEM LIST Actinic Keratosis Other Specified Disease of Sebaceous Glands Htn (Hypertension) Hyperlipidemia Statin Myopathy Preoperative Cardiovascular Examination Cad (Coronary Artery Disease) Abnormality of Gait Clear Outcomes Study, PI: Eva Fischer MD Divergence Insufficiency Paroxysmal Supraventricular Tachycardia (Hcc) Unstable Angina (Hcc) Acquired Hypothyroidism Transient Ischemic Attack Left Hemiparesis (Hcc) Interstitial Lung Disease (Hcc) Pulmonary Hypertension (Hcc) Status Post Coronary Angioplasty Stenosis of Both Vertebral Arteries Stuttering Left Arm Weakness Tremor, Unspecified Bradycardia Atherosclerosis of Aorta (Hcc) PAST MEDICAL HISTORY Diagnosis Date Arthritis Atrial fibrillation (HCC) pafib short lived suspected per apple watch strip, Biotel in place Benign paroxysmal positional vertigo of right ear 10/03/2018 CAD (coronary artery disease) 03/28/2019 LAD proximal stent , RCA nondominant bifurcating severe disease small medical rx Cancer (HCC) Dizziness 09/24/2018 HTN (hypertension) Hypertension Lumbar back pain with radiculopathy affecting left lower extremity 03/21/2019 Pulmonary HTN (HCC) TIA (transient ischemic attack) left leg motion movement and slurred speech PAST SURGICAL HISTORY Procedure Laterality Date CC CORONARY STENT 03/28/2019 LAD prox stent , RCA nondominant bifurcating severe disease small medical rx , [facility] -No restenosis in stent lad mild disease 06/14/23 POST-CATARACT LASER SURGERY Bilateral REMV CATARACT EXTRACAP,INSERT LENS Bilateral 2016 [facility] TOTAL HIP REPLACEMENT Right TOTAL HIP REPLACEMENT Right Social History Tobacco Use Smoking status: Never Smokeless tobacco: Never Vaping Use Vaping Use: Never used Substance Use Topics Alcohol use: Yes Comment: wine occas Drug use: No FAMILY HISTORY Problem Relation Age of Onset Heart Mother heart attack Hypertension Mother Cancer Mother stomach Cancer Sister breast non smoker half sister Heart Maternal Grandmother heart attack Diabetes No Family History Cataract No Family History Glaucoma No Family History Macular Degen No Family History ALLERGIES Allergen Reactions Ropinirole Other: See Comments Other reaction(s): nausea/dizziness, blurry vision Lyvpggy-Gvj-Ehe Red* Other: See Comments Sulfa (Sulfonamide * Rash CURRENT MEDICATIONS: diclofenac (VOLTAREN ARTHRITIS PAIN) 1 % topical gel Apply 4 g to affected area four times daily. methocarbamol (ROBAXIN) 750 mg tablet Take 1 tablet by mouth four times a day as needed. ranolazine SR (RANEXA) 1,000 mg tab ER 12 hr Take 1 tablet by mouth two times a day. potassium chloride ER (KLOR-CON) 20 mEq tablet Take 1 tablet by mouth once daily. furosemide (LASIX) 40 mg tablet Take 1 tablet by mouth two times a day. evolocumab (REPATHA SURECLICK) 140 mg/mL pen injector Inject 140 mg subcutaneously as directed. Inject 1 pen subcu every 2 wks metoprolol succinate ER (TOPROL XL) 50 mg 24 hr tablet Take 0.5 tablet by mouth once daily. losartan (COZAAR) 25 mg tablet Take 2 tablets by mouth two times a day. levothyroxine (SYNTHROID) 50 mcg tablet Take 1 tablet by mouth daily at 6:00 am. Patient should start on December 12, 2023. INV VITAMIN D3 5000 UNITS CAPSULE (IRB [id number]) Take 5,000 Units by mouth once daily. For Investigational Drug Use Only. PI: Stevan Lozoya, PhD. Take one capsule by mouth daily for 3 months prior to surgery and 3 months after surgery. cyanocobalamin (VITAMIN B-12) 1,000 mcg tab Take 1,000 mcg by mouth once daily. biotin 1 mg cap Take by mouth. omega 7-qfs-now-fish oil 1,000 mg (250 mg-750 mg)/5 mL liqd Take by mouth. Magnesium 200 mg tab Take 2 tablets by mouth once daily. aspirin 81 mg chewable tablet Aspirin Active 81 MG PO Daily March 27, 2019 11:00pm isosorbide mononitrate ER (IMDUR) 30 mg 24 hr tablet Take 1 tablet by mouth once daily. ezetimibe (ZETIA) 10 mg tablet Take 1 tablet by mouth once daily. (Patient taking differently: Take 10 mg by mouth daily at bedtime.) nitroglycerin sublingual (NITROQUICK) 0.3 mg SL tablet Dissolve 1 tablet under the tongue every 5 minutes as needed for chest pain. hkswdaglphf-mnrevugdo-ysnokxro (TRELEGY ELLIPTA) 100-62.5-25 mcg inhalation powder Inhale 1 Puff as instructed as needed. cholecalciferol, vitamin D3, (VITAMIN D3 ORAL) Take by mouth. Ascorbic Acid (VITAMIN C) 100 mg tablet Take 100 mg by mouth once daily. acetaminophen 650 mg CR tablet Take 650 mg by mouth every 8 hours as needed. pramipexole (MIRAPEX) 0.5 mg tablet Take 0.25 mg by mouth two times a day. REVIEW OF SYSTEMS: Review of Systems Constitutional: Negative Eyes: Negative Hent: Negative Cardiovascular: Negative Respiratory: Negative GI: Negative : Negative Endocrine: Negative Musculoskeletal Positive for Back Pain and Muscle Pain Integumentary: Negative Heme/Lymph Positive for Swelling of Arm or Leg Allergy/Immunologic: Negative Neurologic: Negative Psychiatric: Negative Patient's Review of Systems has been reviewed with the patient and updated as appropriate. OBJECTIVE: PHYSICAL EXAM There were no vitals taken for this visit. GENERAL APPEARANCE: Well appearing, well-hydrated, well nourished and alert SKIN: Head, neck, trunk, and extremities dry, intact and without lesions HEART: Regular rate and rhythym, Murmur negative LUNGS: even and non-labored breathing, normal chest excursion LYMPHATICS: No palpable lymphadenopathy in the neck, axilla, or groin NEURO/PSYCH: oriented to time, place, and person, speech normal, mental status intact GAIT: antalgic gait POSTURE: Posture and spinal curves are normal PALPATION: paraspinal tenderness; lumbar MUSCULOSKELETAL: Extended Low Back & Leg Exam Lumbar Range of Motion Flexion N/A Extension Restricted RIGHT LEFT Lateral Bending Limited Limited Oblique Extension Decreased Decreased Leg Raise Straight Leg Raise Negative Negative Contralateral Straight Leg Raise Negative Negative DTRs Knee Normal Normal Ankle Normal Normal Medial Hamstring Normal Normal Babinski normal normal Strength of Lower Extremities Extensor Hallux Longus 5/5 5/5 Ankle Dorsiflexion 5/5 5/5 Ankle Plantarflexion 5/5 5/5 Knee Extension 5/5 5/5 Rocio's Exam: Deferred Hip Range of Motion RIGHT LEFT Flexion Normal Normal Extension Normal Normal Abduction Normal Normal Adduction Normal Normal Internal Rotation Normal Normal External Rotation Normal Normal Hip Exam RIGHT LEFT JOHNNY Exam Normal Normal Trochanteric Bursa Tenderness Normal Normal Gaenslen's Maneuver Normal Normal Concetta's Test (IT-Band Pathology) Normal Normal NEUROSENSORY: Differentiation of sharp and light touch; Within Normal Limits Neuro Tests: None Data Review: [facility] records independently reviewed Imaging and outside records independently reviewed Images independently reviewed with the patient RESULT: Counting reference: Lumbosacral junction. For the purposes of this report, L4-5 is considered the level of the iliac crest and assume there are 5 lumbar-type vertebrae. Anatomic variant: None. Boat Hoist Operator Helper (topogram) images: Right hip arthroplasty. Alignment: Levoscoliosis is present centered at L3-L4 with approximately 1 cm degenerative left lateral listhesis of L4 on L5 Bone marrow /fracture: No evidence of a lytic or blastic process in the visualized spine. Diffuse osteopenia. Age-indeterminate but favored chronic fracture of the L3 vertebral body with approximately 25% right anterolateral height loss and no osseous retropulsion. Chronic postsurgical changes of L4-L5 and L5-S1 decompressive laminectomy. Paraspinal soft tissues: The paraspinal soft tissues planes are maintained. Lower thoracic spine: The visualized lower thoracic bony canal and foramina are patent. Canal and foramina: No evidence of high-grade degenerative canal stenosis. Likely left lateral recess stenosis at L5-S1 due to a disc protrusion with vacuum disc phenomenon and associated crowding of the descending left S1 nerve roots. Degenerative foraminal stenosis is most pronounced and advanced on the left at L5-S1. Degenerative disc disease is most pronounced and advanced at L4-L5, accentuated by levoscoliosis and left lateral listhesis of L4 on L5. Sacrum and iliac wings: Degenerative changes of the bilateral sacroiliac joints. Additional comments: Calcific atherosclerosis of the abdominal aorta and major branch vessels. Mosaic attenuation pattern of the lung bases compatible with small airways disease and air-trapping. Colonic diverticulosis. Marked asymmetric atrophy of the right iliopsoas. ASSESSMENT/PLAN (S32.008A) Other fracture of unspecified lumbar vertebra, initial encounter for closed fracture (HCC) (primary encounter diagnosis) Comment: CT with L3 compression fx. Will check MRI, if acute we may consider referral for vertebroplasty. Will trial lyrica as well. Plan: MRI LUMBAR SPINE WO IVCON (M54.50, G89.29) Chronic bilateral low back pain without sciatica Comment: Plan: CONSULT TO [facility] Imaging Ordered: None SIGNATURE: Megan Kirby PA-C PATIENT NAME: Yani Gerard DATE: May 17, 2024 TIME: 10:50 AM documented in this encounter [facility] 05-10-2024 Instructions Francisco Arce PA-C - 05/10/2024 7:14 PM EDT Continue with consult to [facility]. Take Robaxin in the evening for added relief. Use this medication sparingly throughout the day due to increased fatigue. Utilize topical Voltaren Gel to affected areas. You may use this up to 4 times a day, as needed. Follow up as needed as related to the right hip joint. documented in this encounter [facility] 05-10-2024 Note HNO ID: [id number] Author: FRANCISCO ARCE PA-C Service: ? Author Type: Physician Linoleum Layer Helper Type: Progress Notes Filed: 05/10/2024 19:36 Note Text: CONSULT ORTHOPAEDIC: HIP PRIMARY CARE PHYSICIAN: Kyle Amin MD REFERRING PROVIDER: No referring provider defined for this encounter. ASSESSMENT AND PLAN Impression: History of Right Total Hip Replacement, Revision; Right-Sided Low Back Pain Patient is an 83-year-old female with a notable history of CAD, pulmonary hypertension, atrial fibrillation on long-term aspirin and recently discontinued Plavix, and a right total hip arthroplasty at [facility] in 2020 with revision in 2021 reporting to the office today for evaluation of right hip pain. Patient shares that her right hip has been bothersome for the past 2 weeks, notably located to the posterior aspect of the hip. Patient shares that she reported [facility] and was evaluated for right hip pain on 04/18, CRP obtained and was negative. Radiographs revealed an intact right total hip arthroplasty without evidence of loosening or acute abnormality. No fractures appreciated. Patient then reported to the emergency department on 04/30 for evaluation of low back pain. CT lumbar spine and flank obtained, age indeterminant fracture of the L3 vertebral body appreciated as well as multiple levels of degenerative changes. Patient shares that over the course of the past 2 weeks, the pain has migrated from the right hip region to the lower back, notably located to the L3-S1 region. Patient shares that the pain is severe, worsened with lying flat on her back and direct pressure. Patient also notes pain with ambulation. Patient has been taking Tylenol and Motrin for pain relief. Patient denies a specific injury to onset this pain. On exam of the right hip joint, range of motion is unobstructed and nonpainful. Negative JOHNNY/FADIR, negative SLR, negative Stinchfield. On exam of the lower back, patient is point tender to palpation to the L3 spinous process. Painful to palpation to the L3-S1 paraspinal muscles. Pain increased with flexion and lateral flexion of the lumbar spine. Patient denies any saddle anesthesia or incontinence. Patient has a consult visit with a spine provider next week, counseled to continue with this appointment. Patient to take prescribed Robaxin, notably in the evening time, for added relief. Patient to utilize topical Voltaren gel for added relief. Patient to otherwise maintain on her current pain regimen until her spine visit. Patient to follow-up with me as needed as related to her right hip joint. Diagnoses: (T84.84XA, Z96.649) Pain due to total hip replacement, initial encounter ([facility] ([facility]) (primary encounter diagnosis) (M54.50, G89.29) Chronic right-sided low back pain, unspecified whether sciatica present The patient has been ordered: Office Visit on 05/10/24 diclofenac (VOLTAREN ARTHRITIS PAIN) 1 % topical gel methocarbamol (ROBAXIN) 750 mg tablet No orders placed today. CONSULTS: Patient does not require consults for optimization at this time. Total Joint Arthroplasty: Risk Calculator Yani Gerard has a 25.84% chance of NOT returning home at discharge for a Primary total Hip replacement. Yani's estimated Length of Stay is 2 days (Inpatient candidate). Yani's 30 day chance of readmission is 2.61%. Readmission Probability 2.61 % (within 30 days following surgery) Estimated LOS 2 days Discharge Disposition Probability D/C to Home 74.16 % D/C to SNF 25.84 % These calculations are based on the following factors: - 83 years of age - sex is not male - BMI of 30.8 kg/m2 - NarxCare score of 170 - 3 hospitalizations in the last 12 months - no history of heart disease - no history of diabetes - no history of COPD - no history of anemia - preoperative ambulation: independent community distances - 2 step(s) to enter home - bed location is on the first floor - bath location is on the first floor - caregiver is consistent - home is not more than 150 miles away - PROMIS-10 Mental Health T score 41-49 - Marital status: Risk Factors for Total Knee Arthroplasty (TKA) Major Risk Factors Obesity Moderate Risk High: BMI > 40 Moderate: BMI 30-40 Normal: BMI < 30 Diabetes normal High: A1C > 8 Moderate: A1C 7-8 Normal: A1C < 7 Hx of DVT / PE normal High: dx of DVT / PE Normal: no dx of DVT / PE Smoking normal High: Current smoker Normal: Non smoker Narcotics Use Moderate Risk High:NarxCare >=300 Moderate: 100-299 Normal: 0-99 Depression Unknown Risk High: PHQ-9 >14 Moderate: PHQ-9 5-14 Normal: PHQ-9 < 5 Area Deprivation Index (ADRIAN) Unknown Risk High: ADRIAN Score > 75 Moderate: ADRIAN 50-75 Normal: ADRIAN < 50 Obesity: weight management recommended BMI Readings from Last 3 Encounters: 04/30/24 : 30.80 kg/m? 04/08/24 : 30.83 kg/m? 02/26/24 : 30.80 kg/m? Area Deprivation Ind (more content not included)... [facility] 05-10-2024 History of Present illness Narrative Images from the original note were not included. CONSULT ORTHOPAEDIC: HIP PRIMARY CARE PHYSICIAN: Kyle Amin MD REFERRING PROVIDER: No referring provider defined for this encounter. ASSESSMENT & PLAN Impression: History of Right Total Hip Replacement, Revision; Right-Sided Low Back Pain Patient is an 83-year-old female with a notable history of CAD, pulmonary hypertension, atrial fibrillation on long-term aspirin and recently discontinued Plavix, and a right total hip arthroplasty at [facility] in 2020 with revision in 2021 reporting to the office today for evaluation of right hip pain. Patient shares that her right hip has been bothersome for the past 2 weeks, notably located to the posterior aspect of the hip. Patient shares that she reported to [facility] and was evaluated for right hip pain on 04/18, CRP obtained and was negative. Radiographs revealed an intact right total hip arthroplasty without evidence of loosening or acute abnormality. No fractures appreciated. Patient then reported to the emergency department on 04/30 for evaluation of low back pain. CT lumbar spine and flank obtained, age indeterminant fracture of the L3 vertebral body appreciated as well as multiple levels of degenerative changes. Patient shares that over the course of the past 2 weeks, the pain has migrated from the right hip region to the lower back, notably located to the L3-S1 region. Patient shares that the pain is severe, worsened with lying flat on her back and direct pressure. Patient also notes pain with ambulation. Patient has been taking Tylenol and Motrin for pain relief. Patient denies a specific injury to onset this pain. On exam of the right hip joint, range of motion is unobstructed and nonpainful. Negative JOHNNY/FADIR, negative SLR, negative Stinchfield. On exam of the lower back, patient is point tender to palpation to the L3 spinous process. Painful to palpation to the L3-S1 paraspinal muscles. Pain increased with flexion and lateral flexion of the lumbar spine. Patient denies any saddle anesthesia or incontinence. Patient has a consult visit with a spine provider next week, counseled to continue with this appointment. Patient to take prescribed Robaxin, notably in the evening time, for added relief. Patient to utilize topical Voltaren gel for added relief. Patient to otherwise maintain on her current pain regimen until her spine visit. Patient to follow-up with me as needed as related to her right hip joint. Diagnoses: (T84.84XA, Z96.649) Pain due to total hip replacement, initial encounter (HCC) ([facility]) (primary encounter diagnosis) (M54.50, G89.29) Chronic right-sided low back pain, unspecified whether sciatica present The patient has been ordered: Office Visit on 05/10/24 diclofenac (VOLTAREN ARTHRITIS PAIN) 1 % topical gel methocarbamol (ROBAXIN) 750 mg tablet No orders placed today. CONSULTS: Patient does not require consults for optimization at this time. Total Joint Arthroplasty: Risk Calculator Yani Gerard has a 25.84% chance of NOT returning home at discharge for a Primary total Hip replacement. Yani's estimated Length of Stay is 2 days (Inpatient candidate). Yani's 30 day chance of readmission is 2.61%. Readmission Probability 2.61 % (within 30 days following surgery) Estimated LOS 2 days Discharge Disposition Probability D/C to Home 74.16 % D/C to SNF 25.84 % These calculations are based on the following factors: - 83 years of age - sex is not male - BMI of 30.8 kg/m2 - NarxCare score of 170 - 3 hospitalizations in the last 12 months - no history of heart disease - no history of diabetes - no history of COPD - no history of anemia - preoperative ambulation: independent community distances - 2 step(s) to enter home - bed location is on the first floor - bath location is on the first floor - caregiver is consistent - home is not more than 150 miles away - PROMIS-10 Mental Health T score 41-49 - Marital status: Risk Factors for Total Knee Arthroplasty (TKA) Major Risk Factors Obesity Moderate Risk High: BMI > 40 Moderate: BMI 30-40 Normal: BMI < 30 Diabetes normal High: A1C > 8 Moderate: A1C 7-8 Normal: A1C < 7 Hx of DVT / PE normal High: dx of DVT / PE Normal: no dx of DVT / PE Smoking normal High: Current smoker Normal: Non smoker Narcotics Use Moderate Risk High:NarxCare >=300 Moderate: 100-299 Normal: 0-99 Depression Unknown Risk High: PHQ-9 >14 Moderate: PHQ-9 5-14 Normal: PHQ-9 < 5 Area Deprivation Index (ADRIAN) Unknown Risk High: ADRIAN Score > 75 Moderate: ADRIAN 50-75 Normal: ADRIAN < 50 Obesity: weight management recommended BMI Readings from Last 3 Encounters: 04/30/24 : 30.80 kg/m 04/08/24 : 30.83 kg/m 02/26/24 : 30.80 kg/m Area Deprivation Index (ADRIAN) 04/11/2022 04/18/2023 ADRIAN Score National Score 54 58 Patient Health Questionnaire (PHQ-9) 07/16/2020 12/04/2020 PHQ-9 PHQ-2 Score 0 0 PHQ-9 Score 0 0 (0-4) minimal depression, (5-9) mild depression, (10-14) moderate depression, (15-19) moderately severe depression, (20-27) severe depression Bone Density Risk Screen Yani Gerard is at risk for bone loss and has not had a bone densitometry scan in the last 2 years (date of last scan: 05/07/2021). Recommend a bone densitometry scan and if indicated on the bone density results, a consult to a bone health specialist (Rheumatology, Endocrinology, or Women's Health) for bone assessment. Risk Factors: Use of Furosemide History of falls Prednisone or use of systemic steroids Additional Risk Factors NarxCare score NARX Narcotics: 170 (05/10/2024 1:59 PM) ACTIVE PROBLEM LIST Actinic Keratosis Other Specified Disease of Sebaceous Glands Htn (Hypertension) Hyperlipidemia Statin Myopathy Preoperative Cardiovascular Examination Cad (Coronary Artery Disease) Abnormality of Gait Clear Outcomes Study, PI: Eva Fischer MD Divergence Insufficiency Paroxysmal Supraventricular Tachycardia (Hcc) Unstable Angina (Hcc) Acquired Hypothyroidism Transient Ischemic Attack Left Hemiparesis (Hcc) Interstitial Lung Disease (Hcc) Pulmonary Hypertension (Hcc) Status Post Coronary Angioplasty Stenosis of Both Vertebral Arteries Stuttering Left Arm Weakness Tremor, Unspecified Bradycardia Atherosclerosis of Aorta (Hcc) SUBJECTIVE CHIEF COMPLAINT: Hip Pain HPI: Yani Gerard is a 83 year old patient with the presenting complaint of New and Pain of the Right Hip. Yani Gerard has had progressive problems with the hip(s) constantly over the past 3 week(s) interfering with activities which include walking 2 blocks, rising from a sitting position, getting in and out of a car, and sleeping . The problem began limiting activities 1-4 weeks ago. Yani reports a current pain level of 9 (Hip-Right). She describes the pain as Sharp. The pain is Continuous . Interventions tried include Medication. FALL RISK: Yani is not currently at risk for falls. PROMIS Physical Function Score 02/29/2024 03/28/2024 PROMIS CAT Physical Function T-Score 45 (within normal limits) 42 (mild dysfunction) Percentile 31 21* FUNCTIONAL STATUS: Climb a flight of stairs or walk up a hill (5.50 METs) PREVIOUS TREATMENTS: Current Anti-Inflammatory medications: diclofenac sodium Past anti-inflammatory medications (not necessarily for this reason for visit): diclofenac sodium, ibuprofen, ketorolac tromethamine, meloxicam, prednisone Medical: OTC NSAIDS for 3 Months or Greater (Ibuprofen), Tylenol, topical Lidocaine patches Physical Therapy: Activities Modified and PT Three Months or Greater 1-2 times per week REVIEW OF SYSTEMS: PAIN ASSESSMENT: See HPI. MUSCULOSKELETAL: See HPI. 12/30/2023 Malnutrition Screening Tool (MST) Lost Weight Recently Without Trying? If Yes, Amount of Weight Loss(lbs) 0:No Eating Poorly Because of a Decreased Appetite 0:No Weight Loss Score (Calculated) 0 Appetite Score (Calculated) 0 Total MST Score (Calculated) 0 PAST MEDICAL HISTORY Diagnosis Date Arthritis Atrial fibrillation (HCC) pafib short lived suspected per apple watch strip, Biotel in place Benign paroxysmal positional vertigo of right ear 10/03/2018 CAD (coronary artery disease) 03/28/2019 LAD proximal stent , RCA nondominant bifurcating severe disease small medical rx Cancer (HCC) Dizziness 09/24/2018 HTN (hypertension) Hypertension Lumbar back pain with radiculopathy affecting left lower extremity 03/21/2019 Pulmonary HTN (HCC) TIA (transient ischemic attack) left leg motion movement and slurred speech PAST SURGICAL HISTORY Procedure Laterality Date CC CORONARY STENT 03/28/2019 LAD prox stent , RCA nondominant bifurcating severe disease small medical rx , [facility] -No restenosis in stent lad mild disease 06/14/23 POST-CATARACT LASER SURGERY Bilateral REMV CATARACT EXTRACAP,INSERT LENS Bilateral 2015 REVISE TOTAL HIP REPLACEMENT Right TOTAL HIP REPLACEMENT Right FAMILY HISTORY Problem Relation Age of Onset Heart Mother heart attack Hypertension Mother Cancer Mother stomach Cancer Sister breast non smoker half sister Heart Maternal Grandmother heart attack Diabetes No Family History Cataract No Family History Glaucoma No Family History Macular Degen No Family History Social History Tobacco Use Smoking status: Never Smokeless tobacco: Never Vaping Use Vaping Use: Never used Substance Use Topics Alcohol use: Yes Comment: wine occas Drug use: No ALLERGIES: Ropinirole, Fuvpinp-Jlr-Zym Reductase Inhibitors, and Sulfa (Sulfonamide Antibiotics) MEDICATIONS: diclofenac (VOLTAREN ARTHRITIS PAIN) 1 % topical gel Apply 4 g to affected area four times daily. methocarbamol (ROBAXIN) 750 mg tablet Take 1 tablet by mouth four times a day as needed. ranolazine SR (RANEXA) 1,000 mg tab ER 12 hr Take 1 tablet by mouth two times a day. potassium chloride ER (KLOR-CON) 20 mEq tablet Take 1 tablet by mouth once daily. furosemide (LASIX) 40 mg tablet Take 1 tablet by mouth two times a day. evolocumab (REPATHA SURECLICK) 140 mg/mL pen injector Inject 140 mg subcutaneously as directed. Inject 1 pen subcu every 2 wks metoprolol succinate ER (TOPROL XL) 50 mg 24 hr tablet Take 0.5 tablet by mouth once daily. losartan (COZAAR) 25 mg tablet Take 2 tablets by mouth two times a day. levothyroxine (SYNTHROID) 50 mcg tablet Take 1 tablet by mouth daily at 6:00 am. Patient should start on December 12, 2023. INV VITAMIN D3 5000 UNITS CAPSULE (IRB [id number]) Take 5,000 Units by mouth once daily. For Investigational Drug Use Only. PI: Stevan Lozoya, PhD. Take one capsule by mouth daily for 3 months prior to surgery and 3 months after surgery. cyanocobalamin (VITAMIN B-12) 1,000 mcg tab Take 1,000 mcg by mouth once daily. biotin 1 mg cap Take by mouth. omega 0-wqz-phf-fish oil 1,000 mg (250 mg-750 mg)/5 mL liqd Take by mouth. Magnesium 200 mg tab Take 2 tablets by mouth once daily. aspirin 81 mg chewable tablet Aspirin Active 81 MG PO Daily March 27, 2019 11:00pm isosorbide mononitrate ER (IMDUR) 30 mg 24 hr tablet Take 1 tablet by mouth once daily. ezetimibe (ZETIA) 10 mg tablet Take 1 tablet by mouth once daily. (Patient taking differently: Take 10 mg by mouth daily at bedtime.) nitroglycerin sublingual (NITROQUICK) 0.3 mg SL tablet Dissolve 1 tablet under the tongue every 5 minutes as needed for chest pain. agmgojygsib-sjysfnguz-chkzcewk (TRELEGY ELLIPTA) 100-62.5-25 mcg inhalation powder Inhale 1 Puff as instructed as needed. cholecalciferol, vitamin D3, (VITAMIN D3 ORAL) Take by mouth. Ascorbic Acid (VITAMIN C) 100 mg tablet Take 100 mg by mouth once daily. acetaminophen 650 mg CR tablet Take 650 mg by mouth every 8 hours as needed. pramipexole (MIRAPEX) 0.5 mg tablet Take 0.25 mg by mouth two times a day. OBJECTIVE PHYSICAL EXAM There were no vitals taken for this visit. All other systems deferred. GENERAL: Appears healthy, well-nourished, no deformities. HABITUS: Normal GAIT: Antalgic to the right HIP EXAM: Right: ROM: Extension: Normal Flexion: 110 degrees Internal Rotation: 30 degrees External Rotation: 30 degrees Abduction: 40 degrees Adduction: 30 degrees Strength: Abduction 5/5 and Flexion 5/5 Palpation: L3 spinous process; L3-S1 paraspinal muscles Negative JOHNNY/FADIR, technically difficult as patient is unable to lay flat on exam table Log roll: non-painful. Straight leg raise: Negative, negative Stinchfield; technically difficult as patient is unable to lay flat on exam table Neurovascular Status: Sensation Intact and Moves foot and ankle up & down Low Back: Pain to palpation at the L3 spinous process; L3-S1 paraspinal muscles Pain increased with flexion and lateral flexion of the lumbar spine DATA: She was last seen in orthopaedic clinic for her hip/pelvis on 04/18/2024 with Fran Rachel. Most recent hip imaging was completed on 04/18/2024 (XR HIP GENERAL 3V PELV/AP/LAT RIGHT) . Diagnostic tests reviewed for today's visit: Most recent labs Right hip X-Ray: Post op xray: Implants are well fixed. There is no evidence of loosening. The following conditions were addressed during the office visit today: Pain due to total hip arthroplasty Low back pain SIGNATURE: Francisco Arce PA-C PATIENT NAME: Yani Gerard DATE: May 10, 2024 TIME: 2:08 PM documented in this encounter [facility] 04-30-2024 Note HNO ID: [id number] Author: CRISTY SUMMERS RT(R) Service: ? Author Type: Technologist Type: Progress Notes Filed: 04/30/2024 17:21 Note Text: Radiology Service Progress Note PATIENT NAME: Yani Gerard DATE OF SERVICE: April 30, 2024 TIME: 5:21 PM PATIENT IDENTITY VERIFICATION COMPLETED USING TWO (2) IDENTIFIERS: Name and Date of confirmed by patient verbally and Name and Date of confirmed by identification band. FALL SCREENING: Has the patient had 2 falls in the last year or 1 fall with injury or currently using an Ambulatory Assistive Device (Walker, Cane, Wheelchair, Crutches, etc.)? Emergency Room Patient: Screened in ED PATIENT GENDER DATA: Female. status: : No status: NO. PATIENT RELEVANT IMPLANT DATA REVIEWED: Not Applicable PATIENT PRESENTS WITH AN IMPLANTABLE OR ATTACHED MD SENIOR RESEARCH SCIENTIST: No RADIOLOGY DEPARTMENT: CT; Exam(s) Completed: Abdomen/Pelvis and Spine PERIPHERAL IV DATA: Not applicable SIGNED BY: RT Jennifer(R) April 30, 2024 5:21 PM [facility] 04-30-2024 Note HNO ID: [id number] Author: RADHA DOYLE RT(R) Service: Radiology Author Type: Technologist Type: Progress Notes Filed: 04/30/2024 13:38 Note Text: Radiology Service Progress Note PATIENT NAME: Yani Gerard DATE OF SERVICE: April 30, 2024 TIME: 1:37 PM PATIENT IDENTITY VERIFICATION COMPLETED USING TWO (2) IDENTIFIERS: Name and Date of confirmed by patient verbally. FALL SCREENING: Has the patient had 2 falls in the last year or 1 fall with injury or currently using an Ambulatory Assistive Device (Walker, Cane, Wheelchair, Crutches, etc.)? Emergency Room Patient: Screened in ED PATIENT GENDER DATA: Female. status: : No status: NO. PATIENT RELEVANT IMPLANT DATA REVIEWED: Not Applicable PATIENT PRESENTS WITH AN IMPLANTABLE OR ATTACHED MD SENIOR RESEARCH SCIENTIST: No RADIOLOGY DEPARTMENT: General X-ray: Exam(s) Completed: Spine X-Ray(s): Lumbar AP / LAT / L5-S1 PERIPHERAL IV DATA: Not applicable SIGNED BY: RT Alma Rosa(R) April 30, 2024 1:37 PM [facility] 04-30-2024 Telephone encounter Note I spoke to patient advised of consult to spine medicine. Patient states that her pain is so severe, she does not know if she can wait for an appointment and may just go to an ER. She is aware our schedulers will contact her for appointment with spine medicine. [facility] Work Phone: 04-30-2024 Telephone encounter Note Ines calling for physician referral for . She is not with him. She has tremendous back pain. Made him aware [facility] has spine specialists. Offered to [address] to patient for triage but declined. She does not have her phone. Advised to call back when with patient for triage and assistance and explained triage. He disconnected while NOC closing was given. He did not hear all of it. NOC closing GO TO THE EMERGENCY ROOM OR CALL 911 IF: * You develop any new symptoms * Your condition worsens * You are concerned or anxious about your condition for any other reason. If you have any questions, you can call Nurse aviation metalsmith back. [facility] 04-30-2024 Miscellaneous Notes Ines calling for physician referral for . She is not with him. She has tremendous back pain. Made him aware [facility] has spine specialists. Offered to [address] to patient for triage but declined. She does not have her phone. Advised to call back when with patient for triage and assistance and explained triage. He disconnected while NOC closing was given. He did not hear all of it. NOC closing GO TO THE EMERGENCY ROOM OR CALL 911 IF: * You develop any new symptoms * Your condition worsens * You are concerned or anxious about your condition for any other reason. If you have any questions, you can call Nurse aviation metalsmith back. documented in this encounter [facility] 04-30-2024 Telephone encounter Note Lm for to call office back. Dr. Burks has placed a consult for spine medicine. [facility] 04-30-2024 Telephone encounter Note Patient's Ines called back today stating last night was the night from hell for Yani. She was crying from pain and could barely move . Per , her pain is in the lower spine. Please call patient to advise, he really wants to speak with someone today. . [facility] 04-29-2024 Telephone encounter Note Noted and appreciated. Order filed. Jayden Burks MD [facility] 04-29-2024 Telephone encounter Note Forwarded to provider. [facility] 04-29-2024 Telephone encounter Note Pt Sp phoned regarding Pt back pain. Pt having extreme back pain in lower back. Pt having extreme difficulty standing, moving. Asking for sooner appt. Please call and advise. Pt phone # [phone] [facility] 04-18-2024 Instructions Fran Rachel PA-C - 04/18/2024 5:12 PM EDT Gentle range of motion and stretching as tolerated. Rest and relax as much as possible for next 5 to 7 days. Take Mobic as prescribed, once a day, take with food. You can also take Tylenol 500-1000 mg 2-3 times a day as needed for pain, take with food. Recommended to apply ice to affected area for 20 minutes, as often as every hour. Ice should not be applied directly to skin. Apply heat for 10 to 15 minutes as often as every hour. Heat before activity and for stiffness, cold for after activity and for achy pain. documented in this encounter [facility] 04-18-2024 Note HNO ID: [id number] Author: FRAN RACHEL PA-C Service: ? Author Type: Physician Linoleum Layer Helper Type: Progress Notes Filed: 04/18/2024 17:26 Note Text: [facility] CHIEF COMPLAINT(CC): Right hip pain HISTORY OF PRESENT ILLNESS (HPI): PAIN EVALUATION 04/18/2024 1621 Pain Level: 7 Pain Location: Hip-Right Description: Sore;Sharp;Dull Duration Amount of Time: 2 Duration Units: Weeks Frequency: Intermittent Intervention/Comfort measure: Reposition;Relaxation 83-year-old female with 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 She denies injury, fever, chills, popping, catching, numbness or tingling. She states the pain is exacerbated with standing and relieved while at rest. Has taken Advil for symptom control with minimal relief. REVIEW OF SYMPTOMS (ROS): Constitutional: Any recent fevers? No Cardiovascular: Any chest pain? No Respiratory: Any shortness or breath? No Gastrointestinal: Any abdominal discomfort? No Integumentary: Any recent skin changes or rashes? No Neurologic: Any numbness or tingling? See Above Endocrine: Any diagnosis of diabetes? No Hematologic: Any recent bleeding episodes? No MEDICAL HISTORY: PAST MEDICAL HISTORY Diagnosis Date Arthritis Atrial fibrillation (HCC) pafib short lived suspected per [employer] watch strip, Biotel in place Benign paroxysmal positional vertigo of right ear 10/03/2018 CAD (coronary artery disease) 03/28/2019 LAD proximal stent , RCA nondominant bifurcating severe disease small medical rx Cancer (HCC) Dizziness 09/24/2018 HTN (hypertension) Hypertension Lumbar back pain with radiculopathy affecting left lower extremity 03/21/2019 Pulmonary HTN (HCC) TIA (transient ischemic attack) left leg motion movement and slurred speech PHYSICAL EXAMINATION: Patient's vitals and nursing notes were reviewed. Vitals: There were no vitals taken for this visit. Skin: Skin color, texture, turgor normal, no suspicious rashes or lesions noted Psychiatric: mood and affect are appropriate, patient is oriented to time, place and person General Appearance: Well appearing, alert, in no acute distress, well-hydrated, and well nourished Cardiovascular: pedal pulses and radial pulses normal, no signs of upper or lower extremity edema Respiratory: no respiratory distress, no audible wheezing, no labored breathing, symmetric thoracic excursion Neurologic: bilateral deep tendon reflexes are normal and symmetric with no pathologic reflexes, sensation is grossly intact Lymphatic: no lymph node enlargement noted in the examined area Musculoskeletal Examination: ROM: full range of motion noted Muscle Strength: PSOAS (L2,3): 5/5 Gluteus (L5,S1,2): 5/5 Quadriceps (L3,4): 5/5 Adductor: 5/5 Gluteal: 5/5 Neurologic: Sensation: L2-S1 symmetrically normal, Heel walk: normal Toe walk: normal Special Tests: Straight Leg Raise (SLR): negative bilaterally JOHNNY Test: positive on the right FADIR Test::positive on the right Log Roll: negative bilaterally IMAGING: Final results and radiologist's interpretation, available in the [facility] health record. Images were reviewed with the patient/family members in the office today. My personal interpretation of the performed imaging is no acute abnormality. ASSESSMENT: Pain in right hip Chronic hip pain after total replacement of right hip joint (primary encounter diagnosis) PLAN: Upon review of the patient's x-rays her implant appears stable. However, on exam she does have positive JOHNNY and FADIR eliciting pain in the groin region. I have ordered a C-reactive protein to help further delineate underlying pathology. She reports she is no longer on Plavix, so we will do a short course of Mobic x 14 days to help with pain and inflammation. Discussed the risk and benefits of general NSAIDs, as well as side effect profile, and will begin trial of Mobic. We will continue to monitor the need for further usage, and/or need for discontinuation. Patient will be scheduled for a right total joint replacement provider for further evaluation and treatment. Detailed instructions were reviewed with the patient and all questions were answered in detail. Patient voiced understanding and compliance with the above plan. We discussed emergent need to return to the express care or go to the emergency department. We discussed red flags associated with this condition and emergent treatment if they present. Fran Rachel PA-C [facility] 04-18-2024 History of Present illness Narrative Images from the original note were not included. [facility] CHIEF COMPLAINT(CC): Right hip pain HISTORY OF PRESENT ILLNESS (HPI): PAIN EVALUATION 04/18/2024 1621 Pain Level: 7 Pain Location: Hip-Right Description: Sore;Sharp;Dull Duration Amount of Time: 2 Duration Units: Weeks Frequency: Intermittent Intervention/Comfort measure: Reposition;Relaxation 83-year-old female with 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 She denies injury, fever, chills, popping, catching, numbness or tingling. She states the pain is exacerbated with standing and relieved while at rest. Has taken Advil for symptom control with minimal relief. REVIEW OF SYMPTOMS (ROS): Constitutional: Any recent fevers? No Cardiovascular: Any chest pain? No Respiratory: Any shortness or breath? No Gastrointestinal: Any abdominal discomfort? No Integumentary: Any recent skin changes or rashes? No Neurologic: Any numbness or tingling? See Above Endocrine: Any diagnosis of diabetes? No Hematologic: Any recent bleeding episodes? No MEDICAL HISTORY: PAST MEDICAL HISTORY Diagnosis Date Arthritis Atrial fibrillation (HCC) pafib short lived suspected per apple watch strip, Biotel in place Benign paroxysmal positional vertigo of right ear 10/03/2018 CAD (coronary artery disease) 03/28/2019 LAD proximal stent , RCA nondominant bifurcating severe disease small medical rx Cancer (HCC) Dizziness 09/24/2018 HTN (hypertension) Hypertension Lumbar back pain with radiculopathy affecting left lower extremity 03/21/2019 Pulmonary HTN (HCC) TIA (transient ischemic attack) left leg motion movement and slurred speech PHYSICAL EXAMINATION: Patient's vitals and nursing notes were reviewed. Vitals: There were no vitals taken for this visit. Skin: Skin color, texture, turgor normal, no suspicious rashes or lesions noted Psychiatric: mood and affect are appropriate, patient is oriented to time, place and person General Appearance: Well appearing, alert, in no acute distress, well-hydrated, and well nourished Cardiovascular: pedal pulses and radial pulses normal, no signs of upper or lower extremity edema Respiratory: no respiratory distress, no audible wheezing, no labored breathing, symmetric thoracic excursion Neurologic: bilateral deep tendon reflexes are normal and symmetric with no pathologic reflexes, sensation is grossly intact Lymphatic: no lymph node enlargement noted in the examined area Musculoskeletal Examination: ROM: full range of motion noted Muscle Strength: PSOAS (L2,3): 5/5 Gluteus (L5,S1,2): 5/5 Quadriceps (L3,4): 5/5 Adductor: 5/5 Gluteal: 5/5 Neurologic: Sensation: L2-S1 symmetrically normal, Heel walk: normal Toe walk: normal Special Tests: Straight Leg Raise (SLR): negative bilaterally JOHNNY Test: positive on the right FADIR Test::positive on the right Log Roll: negative bilaterally IMAGING: Final results and radiologist's interpretation, available in the [facility] health record. Images were reviewed with the patient/family members in the office today. My personal interpretation of the performed imaging is no acute abnormality. ASSESSMENT: Pain in right hip Chronic hip pain after total replacement of right hip joint (primary encounter diagnosis) PLAN: Upon review of the patient's x-rays her implant appears stable. However, on exam she does have positive JOHNNY and FADIR eliciting pain in the groin region. I have ordered a C-reactive protein to help further delineate underlying pathology. She reports she is no longer on Plavix, so we will do a short course of Mobic x 14 days to help with pain and inflammation. Discussed the risk and benefits of general NSAIDs, as well as side effect profile, and will begin trial of Mobic. We will continue to monitor the need for further usage, and/or need for discontinuation. Patient will be scheduled for a right total joint replacement provider for further evaluation and treatment. Detailed instructions were reviewed with the patient and all questions were answered in detail. Patient voiced understanding and compliance with the above plan. We discussed emergent need to return to the express care or go to the emergency department. We discussed red flags associated with this condition and emergent treatment if they present. Fran Rachel PA-C documented in this encounter [facility] 04-18-2024 History of Present illness Narrative Radiology Service Progress Note PATIENT NAME: Yani Gerard DATE OF SERVICE: April 18, 2024 TIME: 4:13 PM PATIENT IDENTITY VERIFICATION COMPLETED USING TWO (2) IDENTIFIERS: Name and Date of confirmed by patient verbally. FALL SCREENING: Has the patient had 2 falls in the last year or 1 fall with injury or currently using an Ambulatory Assistive Device (Walker, Cane, Wheelchair, Crutches, etc.)? No PATIENT GENDER DATA: Female. status: : No status: NO. PATIENT RELEVANT IMPLANT DATA REVIEWED: Not Applicable PATIENT PRESENTS WITH AN IMPLANTABLE OR ATTACHED MD SENIOR RESEARCH SCIENTIST: No RADIOLOGY DEPARTMENT: General X-ray: Exam(s) Completed: Pelvis X-Ray: Pelvis with Hip Right PERIPHERAL IV DATA: Not applicable SIGNED BY: RT Niko(Cesar) April 18, 2024 4:13 PM documented in this encounter [facility] 04-18-2024 Note HNO ID: [id number] Author: ALISON BENITO RT(R) Service: Radiology Author Type: Technologist Type: Progress Notes Filed: 04/18/2024 16:16 Note Text: Radiology Service Progress Note PATIENT NAME: Yani Gerard DATE OF SERVICE: April 18, 2024 TIME: 4:13 PM PATIENT IDENTITY VERIFICATION COMPLETED USING TWO (2) IDENTIFIERS: Name and Date of confirmed by patient verbally. FALL SCREENING: Has the patient had 2 falls in the last year or 1 fall with injury or currently using an Ambulatory Assistive Device (Walker, Cane, Wheelchair, Crutches, etc.)? No PATIENT GENDER DATA: Female. status: : No status: NO. PATIENT RELEVANT IMPLANT DATA REVIEWED: Not Applicable PATIENT PRESENTS WITH AN IMPLANTABLE OR ATTACHED MD SENIOR RESEARCH SCIENTIST: No RADIOLOGY DEPARTMENT: General X-ray: Exam(s) Completed: Pelvis X-Ray: Pelvis with Hip Right PERIPHERAL IV DATA: Not applicable SIGNED BY: RT Niko(Cesar) April 18, 2024 4:13 PM [facility] 04-17-2024 Note HNO ID: [id number] Author: BEENA GALLARDO PT Service: ? Author Type: Physical Therapist Type: Progress Notes Filed: 04/17/2024 12:04 Note Text: Episode Visit Count: 3 Therapist That Will Accept/Oversee The Plan Of Care: Beena Gallardo Start of Care Date: 03/15/24 Onset Date: 09/29/23 Plan of Care Certification Date: 03/15/24 Next Certification Due Date: 05/10/24 Patient Identified by Name and Date of : Yes REHABILITATION AND SPORTS THERAPY PHYSICAL THERAPY TREATMENT NOTE ASSESSMENT: Yani Gerard tolerated the session with increased symptoms and imbalance and R hip pain. She demonstrated difficulty with feeling off balance. VNG and vestibular testing does not produce sx, nystagmus patterns are not consistent with peripheral vestibular dysfunction (VOR WNL and asymptomatic, positional testing with mild non-paroxysmal nystagmus and asymptomatic, nystagmus enhanced with fixation vs. Without fixation as typical with peripheral dysfunction. Additionally, ragged SP but no dizziness. Recommend assessment of R hip to ensure no pathology (given h/o complications) If hip ok and pain gone- may return for balance therapy. If imbalance sx remain and hip improved- recommend VTB given abnormalities noted today not consistent with BPPV/UVH. The patient will continue to benefit from ongoing skilled physical therapy to progress toward set goals. PLAN FOR NEXT VISIT: If sx continue- advise VTB. SUBJECTIVE: Reports started feeling off again about a week after last appointment. Off described as wobbly with her balance. Also describes dizziness as off balance as well. Denies any new/different LUNA, neck pain. Describes back pain started at same time it is R sided posterolateral hip painthat radiates around to her groin. This is most severe with sit to stand and improves as she is walking. Thinking this may be playing a role. This is same side she had THR and then a revision. Very complicated hx with this. Did have lasix increase around the time and dosage was reduced by 20mg which she reported felt better. About 1.5 wks ago. Reports she has re-started her prior exercises, is having some dizziness and nausea with them, and no changes. Is doing them 2x/day. Pain: Pain Pain Level: 8 Pain Location: (R groin into the lateral hip) Description: (Deep sharp pain) Frequency: Continuous, With movement (sit to stand worse) Post Treatment Pain Post Treatment Pain Level: No Change OBJECTIVE MEASURES WITH LEVEL OF FUNCTION: Oculomotor Testing Fixation Present Ocular ROM: WNL Spontaneous Nystagmus: No nystagmus Gaze Evoked Nystagmus: Present Right Gaze : Right beat Left Gaze : Left beat Horizontal: Ragged, Saccadic interuption Vertical: Ragged, Saccadic interuption Diagonal: Ragged, Saccadic interuption Horizontal: Slow, Overshoots Vertical: Slow, Overshoots Oblique: Slow, Overshoots Head Thrusts: Negative VOR cancelation: Negative (No sx, but intermittent R and L beating noted t/o.) VOR to slow head movements: Negative X1 Viewing - Horizontal: 30s 120bpm asymptomatic X1 Viewing - Vertical: 30s 120bpm asymptomatic Oculomotor Testing Fixation Removed Spontaneous Nystagmus: No nystagmus Gaze Evoked Nystagmus: Present Center Gaze : No nystagmus Right Gaze : Right beat Left Gaze : Left beat Up Gaze : No nystagmus Down Gaze : No nystagmus Head Shake: Negative Positional Testing Right [place]pike: Left beat, Asymptomatic, Greater than 60 seconds, Comments Right Han[place]-Halpike Comments: DOES NOT ABOLISH WITH FIXATION Left [place]pike: Right beat, Greater than 60 seconds, Asymptomatic, Comments Left [place] Comments: DOES NOT ABOLISH WITH FIXATION Supine Head Center Testing: No nystagmus, Asymptomatic Right Ear Down: Asymptomatic, Comments Right Ear Down Comments: ?able intermittent LBN- difficulty d/t searching behaviors. No nystagmus with return to center. Left Ear Down: Right beat, Asymptomatic, Greater than 60 seconds, Comments Left Ear Down Comments: Very small amplitude, slow speed. Suspect not clinically relevant. Non-paroxysmal. No nystagmus or sx with return to center. [place] Test: (No nystagmus or sx) Lean Test: (No nystagmus or sx) Null Point Test : (No null point identifiable) Positional Test Comments: Presently- nystagmus patterns are not suggestive of active BPPV. Pt is asymptomatic t/o positional testing, mild dizziness with retur upright from sidelying, intermittently and not one side consistently. She does have nystagmus enhanced with gaze in direction of nystagmus in lying, but denies sx when this is present. At this time- suspect balance struggles more likely related to hip pain as LOB frequently occurs with stance on RLE. Additionally, VOR and head position changes are not triggering at fast speeds. Gait Gait Observation: antalgia, frequent veering/LOB with wb'ing on RLE and turns when RLE planted. TREATMENT: Neuromuscular Re (more content not included)... [facility] 04-17-2024 History of Present illness Narrative Episode Visit Count: 3 Therapist That Will Accept/Oversee The Plan Of Care: Beena Gallardo Start of Care Date: 03/15/24 Onset Date: 09/29/23 Plan of Care Certification Date: 03/15/24 Next Certification Due Date: 05/10/24 Patient Identified by Name and Date of : Yes REHABILITATION AND SPORTS THERAPY PHYSICAL THERAPY TREATMENT NOTE ASSESSMENT: Yani Gerard tolerated the session with increased symptoms and imbalance and R hip pain. She demonstrated difficulty with feeling off balance. VNG and vestibular testing does not produce sx, nystagmus patterns are not consistent with peripheral vestibular dysfunction (VOR WNL and asymptomatic, positional testing with mild non-paroxysmal nystagmus and asymptomatic, nystagmus enhanced with fixation vs. Without fixation as typical with peripheral dysfunction. Additionally, ragged SP but no dizziness. Recommend assessment of R hip to ensure no pathology (given h/o complications) If hip ok and pain gone- may return for balance therapy. If imbalance sx remain and hip improved- recommend VTB given abnormalities noted today not consistent with BPPV/UVH. The patient will continue to benefit from ongoing skilled physical therapy to progress toward set goals. PLAN FOR NEXT VISIT: If sx continue- advise VTB. SUBJECTIVE: Reports started feeling off again about a week after last appointment. Off described as wobbly with her balance. Also describes dizziness as off balance as well. Denies any new/different LUNA, neck pain. Describes back pain started at same time it is R sided posterolateral hip painthat radiates around to her groin. This is most severe with sit to stand and improves as she is walking. Thinking this may be playing a role. This is same side she had THR and then a revision. Very complicated hx with this. Did have lasix increase around the time and dosage was reduced by 20mg which she reported felt better. About 1.5 wks ago. Reports she has re-started her prior exercises, is having some dizziness and nausea with them, and no changes. Is doing them 2x/day. Pain: Pain Pain Level: 8 Pain Location: (R groin into the lateral hip) Description: (Deep sharp pain) Frequency: Continuous, With movement (sit to stand worse) Post Treatment Pain Post Treatment Pain Level: No Change OBJECTIVE MEASURES WITH LEVEL OF FUNCTION: Oculomotor Testing Fixation Present Ocular ROM: WNL Spontaneous Nystagmus: No nystagmus Gaze Evoked Nystagmus: Present Right Gaze : Right beat Left Gaze : Left beat Horizontal: Ragged, Saccadic interuption Vertical: Ragged, Saccadic interuption Diagonal: Ragged, Saccadic interuption Horizontal: Slow, Overshoots Vertical: Slow, Overshoots Oblique: Slow, Overshoots Head Thrusts: Negative VOR cancelation: Negative (No sx, but intermittent R and L beating noted t/o.) VOR to slow head movements: Negative X1 Viewing - Horizontal: 30s 120bpm asymptomatic X1 Viewing - Vertical: 30s 120bpm asymptomatic Oculomotor Testing Fixation Removed Spontaneous Nystagmus: No nystagmus Gaze Evoked Nystagmus: Present Center Gaze : No nystagmus Right Gaze : Right beat Left Gaze : Left beat Up Gaze : No nystagmus Down Gaze : No nystagmus Head Shake: Negative Positional Testing Right [place]pike: Left beat, Asymptomatic, Greater than 60 seconds, Comments Right Hanh-Halpike Comments: DOES NOT ABOLISH WITH FIXATION Left [place]pike: Right beat, Greater than 60 seconds, Asymptomatic, Comments Left Hanh-Halpike Comments: DOES NOT ABOLISH WITH FIXATION Supine Head Center Testing: No nystagmus, Asymptomatic Right Ear Down: Asymptomatic, Comments Right Ear Down Comments: ?able intermittent LBN- difficulty d/t searching behaviors. No nystagmus with return to center. Left Ear Down: Right beat, Asymptomatic, Greater than 60 seconds, Comments Left Ear Down Comments: Very small amplitude, slow speed. Suspect not clinically relevant. Non-paroxysmal. No nystagmus or sx with return to center. [place] Test: (No nystagmus or sx) Lean Test: (No nystagmus or sx) Null Point Test : (No null point identifiable) Positional Test Comments: Presently- nystagmus patterns are not suggestive of active BPPV. Pt is asymptomatic t/o positional testing, mild dizziness with retur upright from sidelying, intermittently and not one side consistently. She does have nystagmus enhanced with gaze in direction of nystagmus in lying, but denies sx when this is present. At this time- suspect balance struggles more likely related to hip pain as LOB frequently occurs with stance on RLE. Additionally, VOR and head position changes are not triggering at fast speeds. Gait Gait Observation: antalgia, frequent veering/LOB with wb'ing on RLE and turns when RLE planted. TREATMENT: Neuromuscular Re-Education: 1: Positional Testing as noted above. Repeated x2 for thoroughness and with/without VNG to assess for response to fixation. Sx less with fixation removed. Nystagmus more noted with fixation present. 2: This does not fit pattern of peripheral vestibular dysfunction- additionally- no dizziness/sx provoked with quick head position changes, VOR or VOR Cancellation. 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 Repeat 2-3 cycles 2-3x daily for HEP. Today- no sx with 2 cycles. Skilled Intervention: Patient education as noted. Self-Fpc Management: 1: Recommendation and education re: LOB in RLE wb'ing may indicate her hip pain is a source of her imbalance recently. Unsure role of nausea? as this is intermittent and provoked with walking, but not positional testing. 2: Given pt's significant h/o R hip complications- recommend she see ortho and r/o pathology with that prior to initiating balance programming which could stress her joint if abnormality present. Skilled Intervention: Reviewed patient specific diagnosis in relation to activities of daily living/home management. Home Exercise Program Assigned: 1: gt with head turns hz 20'; vt 20' near support surface for safety 1-2 minutes 1-2x daily 2: Romberg EC in corner 30s focusing on balance responses before reaching out. 2-3 reps 1-2x daily 3: Modified [place] Daroffs 2-3 cycles 2-3x daily until asymptomatic t/o. Assess for changes to sx in this time functionally. Billing Neuromuscular Re-Education Treatment Minutes: 51 Self-Care/Home Management Treatment Minutes: 10 Skilled Treatment Time Minutes (timed and untimed codes): 61 Total Session Time (minutes): 61 Session Start Time : 1016 Session Stop Time : 1117 Beena Gallardo, PT documented in this encounter [facility] 04-12-2024 Telephone encounter Note Images from the original note were not included. [facility] 04-12-2024 Miscellaneous Notes Images from the original note were not included. Patient has not felt good for over a week. Feels like she's not herself She thinks the 40mg of lasix twice a day is too much, she's has dry mouth and overall not feeling well. She would like to go back to the 40mg a day which was doubled recently (03/05) due to weight gain, SOB, and BLE swelling. When she saw Radha- she felt okay, thought she had a bug. Was concerned that she was taking too much losartan, which isn't mentioned in her note. She takes 50mg BID prescribed by her PCP - asked her to speak to him if we are unable to get back to her. 121/76 BP (with 50mg losartan & other medications discussed in note) - Continue furosemide 40 mg BID, metoprolol succinate 25 mg daily, plavix 75 mg daily, asa 81 mg daily, isosorbide mononitrate 30 mg daily, Repatha 140mg q 2 weeks, zetia 10 mg daily, ranolazine 1000 mg BID. - Can trial discontinuing amlodipine. Monitor BP at home. - Schedule with Dr. Harkins Patient states she is not feeling well and wants to check how much of the Losartan and Lasix she should be taking. Call her @ [phone] - ok to leave a message. documented in this encounter [facility] 04-11-2024 Telephone encounter Note Patient has not felt good for over a week. Feels like she's not herself She thinks the 40mg of lasix twice a day is too much, she's has dry mouth and overall not feeling well. She would like to go back to the 40mg a day which was doubled recently (03/05) due to weight gain, SOB, and BLE swelling. When she saw Radha- she felt okay, thought she had a bug. Was concerned that she was taking too much losartan, which isn't mentioned in her note. She takes 50mg BID prescribed by her PCP - asked her to speak to him if we are unable to get back to her. 121/76 BP (with 50mg losartan & other medications discussed in note) [facility] 04-11-2024 Telephone encounter Note - Continue furosemide 40 mg BID, metoprolol succinate 25 mg daily, plavix 75 mg daily, asa 81 mg daily, isosorbide mononitrate 30 mg daily, Repatha 140mg q 2 weeks, zetia 10 mg daily, ranolazine 1000 mg BID. - Can trial discontinuing amlodipine. Monitor BP at home. - Schedule with Dr. Harkins [facility] 04-11-2024 Telephone encounter Note Patient states she is not feeling well and wants to check how much of the Losartan and Lasix she should be taking. Call her @ [phone] - ok to leave a message. 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 - See Dr. Harkins as scheduled. documented in this encounter [facility] 04-08-2024 History of Present illness Narrative Images from the original note were not included. [facility] Department of Cardiovascular Medicine SECTION OF CLINICAL CARDIOLOGY OUTPATIENT VISIT DATE April 08, 2024 OUTPATIENT VISIT TYPE ESTABLISHED PRIMARY CARE PHYSICIAN: Kyle Amin [address] [place] [address] REFERRING PHYSICIAN: No referring provider defined for this encounter. CHIEF COMPLAINT: Follow Up HISTORY OF PRESENT ILLNESS: Ms. Gerard is a 83 year old female who presents today for a cardiovascular medicine follow-up visit. PMHx of PMHx of TIA, vertebral artery stenosis, CAD s/p ELIS- LAD ([facility] 05/2023 showed no ISR, non obstructive 50% LAD stenosis, 80% stenosis in non dominant RCA), HTN, HLD. [facility] 02/12/24 at which time she was started on furosemide daily for leg swelling. This has been increased now to 40 mg BID. Follow up labs showed stable renal function. Recent stress test was normal. The leg swelling has improved. Patient denies chest pain, shortness of breath, cough, wheezing, swelling, orthopnea, pnd, lightheadedness or syncope. She denies chest pain, shortness of breath, orthopnea, cough, edema, palpitations, PND, lightheadedness or syncope. PAST MEDICAL HISTORY Diagnosis Date Arthritis Atrial fibrillation (HCC) pafib short lived suspected per apple watch strip, Biotel in place Benign paroxysmal positional vertigo of right ear 10/03/2018 CAD (coronary artery disease) 03/28/2019 LAD proximal stent , RCA nondominant bifurcating severe disease small medical rx Cancer (HCC) Dizziness 09/24/2018 HTN (hypertension) Hypertension Lumbar back pain with radiculopathy affecting left lower extremity 03/21/2019 Pulmonary HTN (HCC) TIA (transient ischemic attack) left leg motion movement and slurred speech PAST SURGICAL HISTORY Procedure Laterality Date CC CORONARY STENT 03/28/2019 LAD prox stent , RCA nondominant bifurcating severe disease small medical rx , [facility] -No restenosis in stent lad mild disease 06/14/23 POST-CATARACT LASER SURGERY Bilateral REMV CATARACT EXTRACAP,INSERT LENS Bilateral 2015 [facility] TOTAL HIP REPLACEMENT Right TOTAL HIP REPLACEMENT Right SOCIAL HISTORY Social History Tobacco Use Smoking status: Never Smokeless tobacco: Never Vaping Use Vaping Use: Never used Substance Use Topics Alcohol use: Yes Comment: wine occas Drug use: No FAMILY HISTORY Problem Relation Age of Onset Heart Mother heart attack Hypertension Mother Cancer Mother stomach Cancer Sister breast non smoker half sister Heart Maternal Grandmother heart attack Diabetes No Family History Cataract No Family History Glaucoma No Family History Macular Degen No Family History ALLERGIES: ALLERGIES Allergen Reactions Ropinirole Other: See Comments Other reaction(s): nausea/dizziness, blurry vision [id number] Red* Other: See Comments Sulfa (Sulfonamide * Rash MEDICATIONS: amLODIPine (NORVASC) 10 mg tablet take 1 tablet by mouth every day ranolazine SR (RANEXA) 1,000 mg tab ER 12 hr Take 1 tablet by mouth two times a day. potassium chloride ER (KLOR-CON) 20 mEq tablet Take 1 tablet by mouth once daily. furosemide (LASIX) 40 mg tablet Take 1 tablet by mouth two times a day. evolocumab (REPATHA SURECLICK) 140 mg/mL pen injector Inject 140 mg subcutaneously as directed. Inject 1 pen subcu every 2 wks metoprolol succinate ER (TOPROL XL) 50 mg 24 hr tablet Take 0.5 tablet by mouth once daily. losartan (COZAAR) 25 mg tablet Take 2 tablets by mouth two times a day. levothyroxine (SYNTHROID) 50 mcg tablet Take 1 tablet by mouth daily at 6:00 am. Patient should start on December 12, 2023. INV VITAMIN D3 5000 UNITS CAPSULE (IRB [id number]) Take 5,000 Units by mouth once daily. For Investigational Drug Use Only. PI: Stevan Lozoya, PhD. Take one capsule by mouth daily for 3 months prior to surgery and 3 months after surgery. cyanocobalamin (VITAMIN B-12) 1,000 mcg tab Take 1,000 mcg by mouth once daily. biotin 1 mg cap Take by mouth. omega 2-ibj-cuo-fish oil 1,000 mg (250 mg-750 mg)/5 mL liqd Take by mouth. Magnesium 200 mg tab Take 2 tablets by mouth once daily. aspirin 81 mg chewable tablet Aspirin Active 81 MG PO Daily March 27, 2019 11:00pm isosorbide mononitrate ER (IMDUR) 30 mg 24 hr tablet Take 1 tablet by mouth once daily. ezetimibe (ZETIA) 10 mg tablet Take 1 tablet by mouth once daily. (Patient taking differently: Take 10 mg by mouth daily at bedtime.) nitroglycerin sublingual (NITROQUICK) 0.3 mg SL tablet Dissolve 1 tablet under the tongue every 5 minutes as needed for chest pain. ibmnjeoobbf-rwgrratgw-sprbanmj (TRELEGY ELLIPTA) 100-62.5-25 mcg inhalation powder Inhale 1 Puff as instructed as needed. cholecalciferol, vitamin D3, (VITAMIN D3 ORAL) Take by mouth. Ascorbic Acid (VITAMIN C) 100 mg tablet Take 100 mg by mouth once daily. acetaminophen 650 mg CR tablet Take 650 mg by mouth every 8 hours as needed. pramipexole (MIRAPEX) 0.5 mg tablet Take 0.25 mg by mouth two times a day. clopidogrel (PLAVIX) 75 mg tablet Take 75 mg by mouth once daily. (Patient not taking: Reported on 04/08/2024) REVIEW OF SYSTEMS: GENERAL: Negative for: Weight loss or gain, Fever or Chills, Weakness and Sleep difficulties. HEENT: Negative for: Headache, Impaired Vision, Glasses, Hearing Impairment, Ringing in Ears, Nosebleeds, Poor Dental Care, Bleeding Gums and Dentures. NECK: Negative for: Swelling, Pain, Stiffness RESPIRATORY: See HPI GASTROINTESTINAL: Negative for: Trouble swallowing, Heartburn, Change in bowel habits, Blood in stool, Dark black stools MUSCULOSKELETAL: Negtive for: Muscle or joint pain, stiffness, Joint swelling NEUROLOGIC/PSYCHIATRIC: Negative for: Weakness, Paralysis, Numbness, Tingling, Tremor, Nervousness or anxiety, Depressed mood, Memory loss SKIN: Negative for: Rash, Itching HEMATOLOGICAL/LYMPHATIC: Negative for: Easy bruising, Easy bleeding ENDOCRINE: Negative for: Heat or Cold Intolerance, Excessive Sweating, Frequent Urination, Frequent Thirst PHYSICAL EXAMINATION: BP 121/73 Pulse 67 Ht 154.9 cm (5' 1 ) Wt 74 kg (163 lb 2.3 oz) BMI 30.83 kg/m General: Well appearing, in no acute distress, speaking in complete sentences. Skin: No clubbing, no cyanosis. Eyes: Non-icteric sclerae Oropharynx: Teeth in good repair. Neck: No jugular venous distention, no carotid bruits, carotids have a normal upstroke, no palpable thyromegaly. Lungs: Clear to auscultation bilaterally, no wheezing or rhonchi. Heart: Regular rhythm, PMI not displaced, S1, S2 normal, no S3, no S4, no heaves, no rub and no murmur. Abdomen: Soft, nontender, bowel sounds normal, no palpable organomegaly, no bruits. Extremities: No peripheral edema . Grade 2/4 distal pulses bilaterally. Neuro: Oriented to person, place and time, alert, cooperative, gait coordinated. CARDIOVASCULAR MEDICINE TESTING: No Cardiovascular testing perfomed today. Last ECHO Result Conclusion ECHO WITH AGITATED SALINE CONTRAST Collected: 12/11/2023 11:15 AM (Final result) Impression: CONCLUSIONS: - Technically difficult exam due to body habitus. - Exam indication: TIA - The left ventricle is normal in size. Left ventricular systolic function is normal. EF = 70 5% (2D biplane) Grade II left ventricular diastolic dysfunction. - The right ventricle is normal in size. Right ventricular systolic function is normal. - The left atrial cavity is moderately dilated. - Exam was compared with the prior echocardiographic exam performed on 12-29-2022. Comparable findings. * * * Final * * * Stress test 03/01/24: CONCLUSIONS: 1. SPECT Perfusion Study: Normal. 2. There is no scintigraphic evidence for inducible ischemia. 3. No evidence of scarred myocardium. 4. Left ventricle is normal in size. The left ventricle systolic function is normal. 5. Right ventricle is normal in size. The right ventricle systolic function is normal. 6. This is a low risk scan. Gated Stress FBP LVEF % 69 Zio monitor Enrollment dates: 11/21/2023 - 12/20/2023 : Tracings and data reviewed. No atrial fibrillation No ventricular tachycardia No pauses Normal event recorder No significant arhythmia detected.. Fiona Harkins MD [facility] 06/14/23: CORONARY ANGIOGRAPHY: LEFT MAIN TRUNK: No Stenosis LEFT ANTERIOR DESCENDING: Less Than 40% Stenosis Location: Mid and Stent Present with No Stenosis Location: Proximal LEFT CIRCUMFLEX: No Stenosis RAMUS INTERMEDIUS: No Stenosis DOMINANT: YES POSTERIOR DESCENDING: No Stenosis RIGHT CORONARY: 80% Stenosis Location: Mid DOMINANT: NO LV GRAM: LVEF: Normal ( 55% or Greater) WALL MOTION: Normal MITRAL VALVE REGURGITATION: Not Assessed HEMODYNAMICS: LVEDP: 10 LV - AORTA: No Gradient There were no tests performed for review. IMPRESSION: Ms. Gerard is a 83 year old female who presents today for a cardiovascular medicine follow-up visit. PMHx of PMHx of TIA, vertebral artery stenosis, CAD s/p ELIS- LAD ([facility] 05/2023 showed no ISR, non obstructive 50% LAD stenosis, 80% stenosis in non dominant RCA), HTN, HLD. - Blood pressure is well controlled. Patient asking if she can reduce medications at all. - she has no anginal symptoms - Swelling has improved with addition of lasix. - Renal function is stable. PLAN AND RECOMMENDATIONS: - Continue furosemide 40 mg BID, metoprolol succinate 25 mg daily, plavix 75 mg daily, asa 81 mg daily, isosorbide mononitrate 30 mg daily, Repatha 140mg q 2 weeks, zetia 10 mg daily, ranolazine 1000 mg BID. - Can trial discontinuing amlodipine. Monitor BP at home. - Schedule with Dr. Harkins. CONTACT INFORMATION: Radha Zaragoza APRN.CNP Cardiology [id number] [facility] [address] [facility] [address] Dept: [phone] Dept documented in this encounter [facility] 04-08-2024 Note HNO ID: [id number] Author: RADHA ZARAGOZA APRN.CNP Service: ? Author Type: Nurse Practitioner Type: Progress Notes Filed: 04/08/2024 13:08 Note Text: Heart[facility] V[facility] Department of Cardiovascular Medicine SECTION OF CLINICAL CARDIOLOGY OUTPATIENT VISIT DATE April 08, 2024 OUTPATIENT VISIT TYPE ESTABLISHED PRIMARY CARE PHYSICIAN: Kyle Amin [address] [place] [id number] REFERRING PHYSICIAN: No referring provider defined for this encounter. CHIEF COMPLAINT: Follow Up HISTORY OF PRESENT ILLNESS: Ms. Gerard is a 83 year old female who presents today for a cardiovascular medicine follow-up visit. PMHx of PMHx of TIA, vertebral artery stenosis, CAD s/p ELIS- LAD ([facility] 05/2023 showed no ISR, non obstructive 50% LAD stenosis, 80% stenosis in non dominant RCA), HTN, HLD. [facility] 02/12/24 at which time she was started on furosemide daily for leg swelling. This has been increased now to 40 mg BID. Follow up labs showed stable renal function. Recent stress test was normal. The leg swelling has improved. Patient denies chest pain, shortness of breath, cough, wheezing, swelling, orthopnea, pnd, lightheadedness or syncope. She denies chest pain, shortness of breath, orthopnea, cough, edema, palpitations, PND, lightheadedness or syncope. PAST MEDICAL HISTORY Diagnosis Date Arthritis Atrial fibrillation (HCC) pafib short lived suspected per apple watch strip, Biotel in place Benign paroxysmal positional vertigo of right ear 10/03/2018 CAD (coronary artery disease) 03/28/2019 LAD proximal stent , RCA nondominant bifurcating severe disease small medical rx Cancer (HCC) Dizziness 09/24/2018 HTN (hypertension) Hypertension Lumbar back pain with radiculopathy affecting left lower extremity 03/21/2019 Pulmonary HTN (HCC) TIA (transient ischemic attack) left leg motion movement and slurred speech PAST SURGICAL HISTORY Procedure Laterality Date CC CORONARY STENT 03/28/2019 LAD prox stent , RCA nondominant bifurcating severe disease small medical rx , [facility] -No restenosis in stent lad mild disease 06/14/23 POST-CATARACT LASER SURGERY Bilateral REMV CATARACT EXTRACAP,INSERT LENS Bilateral 2015 REVISE TOTAL HIP REPLACEMENT Right TOTAL HIP REPLACEMENT Right SOCIAL HISTORY Social History Tobacco Use Smoking status: Never Smokeless tobacco: Never Vaping Use Vaping Use: Never used Substance Use Topics Alcohol use: Yes Comment: wine occas Drug use: No FAMILY HISTORY Problem Relation Age of Onset Heart Mother heart attack Hypertension Mother Cancer Mother stomach Cancer Sister breast non smoker half sister Heart Maternal Grandmother heart attack Diabetes No Family History Cataract No Family History Glaucoma No Family History Macular Degen No Family History ALLERGIES: ALLERGIES Allergen Reactions Ropinirole Other: See Comments Other reaction(s): nausea/dizziness, blurry vision Lbfzmmu-Bwh-Rjl Red* Other: See Comments Sulfa (Sulfonamide * Rash MEDICATIONS: amLODIPine (NORVASC) 10 mg tablet take 1 tablet by mouth every day ranolazine SR (RANEXA) 1,000 mg tab ER 12 hr Take 1 tablet by mouth two times a day. potassium chloride ER (KLOR-CON) 20 mEq tablet Take 1 tablet by mouth once daily. furosemide (LASIX) 40 mg tablet Take 1 tablet by mouth two times a day. evolocumab (REPATHA SURECLICK) 140 mg/mL pen injector Inject 140 mg subcutaneously as directed. Inject 1 pen subcu every 2 wks metoprolol succinate ER (TOPROL XL) 50 mg 24 hr tablet Take 0.5 tablet by mouth once daily. losartan (COZAAR) 25 mg tablet Take 2 tablets by mouth two times a day. levothyroxine (SYNTHROID) 50 mcg tablet Take 1 tablet by mouth daily at 6:00 am. Patient should start on December 12, 2023. INV VITAMIN D3 5000 UNITS CAPSULE (IRB 19-1548) Take 5,000 Units by mouth once daily. For Investigational Drug Use Only. PI: Stevan Lozoya, PhD. Take one capsule by mouth daily for 3 months prior to surgery and 3 months after surgery. cyanocobalamin (VITAMIN B-12) 1,000 mcg tab Take 1,000 mcg by mouth once daily. biotin 1 mg cap Take by mouth. omega 3-vsk-qcw-fish oil 1,000 mg (250 mg-750 mg)/5 mL liqd Take by mouth. Magnesium 200 mg tab Take 2 tablets by mouth once daily. aspirin 81 mg chewable tablet Aspirin Active 81 MG PO Daily March 27, 2019 11:00pm isosorbide mononitrate ER (IMDUR) 30 mg 24 hr tablet Take 1 tablet by mouth once daily. ezetimibe (ZETIA) 10 mg tablet Take 1 tablet by mouth once daily. (Patient taking differently: Take 10 mg by mouth daily at bedtime.) nitroglycerin sublingual (NITROQUICK) 0.3 mg SL tablet Dissolve 1 tablet under the tongue every 5 minutes as needed for chest pain. ltimpseffqt-idydxmggy-smcemlnq (TRELEGY ELLIPTA) 100-62.5-25 mcg inhalation powder Inhale 1 Puff as instructed as neede (more content not included)... [facility] 04-02-2024 Telephone encounter Note Patient called requesting the following refill: Requested Prescriptions Pending Prescriptions Disp Refills ranolazine SR (RANEXA) 1,000 mg tab ER 12 hr 180 tablet 3 Sig: Take 1 tablet by mouth two times a day. Please review and advise. Nikolas Waters MA [facility] 04-02-2024 Miscellaneous Notes Patient called requesting the following refill: Requested Prescriptions Pending Prescriptions Disp Refills ranolazine SR (RANEXA) 1,000 mg tab ER 12 hr 180 tablet 3 Sig: Take 1 tablet by mouth two times a day. Please review and advise. Nikolas Waters MA documented in this encounter [facility] 04-02-2024 Telephone encounter Note Pharmacy escripts requesting the following refill: Requested Prescriptions Pending Prescriptions Disp Refills amLODIPine (NORVASC) 10 mg tablet [Pharmacy Med Name: amlodipine 10 mg tablet] 90 tablet 3 Sig: take 1 tablet by mouth every day Please review and advise. Nikolas Waters MA [facility] 04-02-2024 Miscellaneous Notes Pharmacy escripts requesting the following refill: Requested Prescriptions Pending Prescriptions Disp Refills amLODIPine (NORVASC) 10 mg tablet [Pharmacy Med Name: amlodipine 10 mg tablet] 90 tablet 3 Sig: take 1 tablet by mouth every day Please review and advise. Nikolas Waters MA documented in this encounter [facility] 03-29-2024 Telephone encounter Note Images from the original note were not included. [facility] 03-29-2024 Miscellaneous Notes Images from the original note were not included. documented in this encounter [facility] 03-28-2024 Note HNO ID: [id number] Author: BEENA GALLARDO, POP Service: ? Author Type: Physical Therapist Type: Progress Notes Filed: 03/28/2024 09:22 Note Text: Episode Visit Count: 2 Therapist That Will Accept/Oversee The Plan Of Care: Beena Gallardo Start of Care Date: 03/15/24 Onset Date: 09/29/23 Plan of Care Certification Date: 03/15/24 Next Certification Due Date: 05/10/24 Patient Identified by Name and Date of : Yes REHABILITATION AND SPORTS THERAPY PHYSICAL THERAPY TREATMENT NOTE ASSESSMENT: Yani Gerard tolerated the session with no issues. She demonstrated improvements in BPPV and dizziness. Reports a mild off sensation when walking, particularly at overnight for bathroom. Denies issues with bending or daytime walking, denies dizziness. Balance assessments today showing reduced falls risk per score; but does have some challenge with walking and turning head horizontally, and eyes closed balance. HEP updated. The patient will continue to benefit from ongoing skilled physical therapy to progress toward set goals. PLAN FOR NEXT VISIT: Repeat balance assessments and sx. SUBJECTIVE: Reports she isn't feeling as off when she walks. R ear has been plugged for a week or 2. Feels very plugged, hearing self talk. Going to go see To have cleaned out. Equilibrium feeling better, close to back to herself. Bending over to pick things up feeling better, uses wider ERIN also. Pain: Pain Pain Level: 0 Post Treatment Pain Post Treatment Pain Level: No Change OBJECTIVE MEASURES WITH LEVEL OF FUNCTION: Oculomotor Testing Fixation Present Head Thrusts: Negative VOR to slow head movements: Negative Oculomotor Testing Fixation Removed Spontaneous Nystagmus: No nystagmus Gaze Evoked Nystagmus: Not present Positional Testing Right [place]-Hallpike: Left beat, Asymptomatic, Greater than 60 seconds, Non-paroxysmal Left [place]-Hallpike: Right beat, Asymptomatic, Greater than 60 seconds, Non-paroxysmal Supine Head Center Testing: No nystagmus, Asymptomatic Right Ear Down: Left beat, Asymptomatic, Non-paroxysmal Right Ear Down Comments: No off feelings, nystagmus is slow and does not speed up/slow down as it did prior. Left Ear Down: Right beat, Asymptomatic, Greater than 60 seconds, Comments Left Ear Down Comments: Nystagmus again is non-parodyzmal, slow, asymptomatic does not speed up/slow down [place] Test: (no nystagmus) Lean Test: (No nystagmus) Null Point Test : (No Null Point Identified today) Positional Test Comments: Suspect Cupulolithiasis has either cleared or habituated as pt is asymptomatic and no further paroxysmal nystagmus noted, also unable to localize with BLT, Null Point; Or with speed of nystagmus as both sides are even, slow and no speed changes. Gait Gait Observation: No LOB noted with straight path ambulation; occasionally reaches for wall with turning TREATMENT: Neuromuscular Re-Education: 1: Positional Testing as above Pt assisted through each position of SCC testing manually and with verbal directions, eye movements assessed by PT throughout. 2: Educated pt on findings- appears she has habituated. Suspect remaining nystagmus may be pts baseline given prior VNG and no sx today. 3: Balance assessments as above 4: Gt with head turns hz every 3-4 steps change, mild slowing in gait but no LOB. Reports feeling off but self corrects without LOB or hand support. 20' x2 5: gt with head turns vertical with changes every 3-4 steps, 20'; no off feelings but does slow slightly during transitions. No LOB. x2 6: Romberg EC 20-30s with cues for attending to LE's (foot/ankle) min sway with occasional reaching for LT support. Advised for home complete in corner for safety and try to avoid reaching as first balance correction. 7: May hold Gufoni (asymptomatic currently) recommend re-start if sx return. Skilled Intervention: Skilled judgment used to assess appropriate program for balance and coordination activity. Patient education as noted. Home Exercise Program Assigned: 1: gt with head turns hz 20'; vt 20' near support surface for safety 1-2 minutes 1-2x daily 2: Romberg EC in corner 30s focusing on balance responses before reaching out. 2-3 reps 1-2x daily 3: Rozina Rose PRN-- if dizzy feelings return. Billing Neuromuscular Re-Education Treatment Minutes: 51 Skilled Treatment Time Minutes (timed and untimed codes): 51 Total Session Time (minutes): 51 Session Start Time : 818 Session Stop Time : 909 Beena Gallardo, PT [facility] 03-28-2024 History of Present illness Narrative Episode Visit Count: 2 Therapist That Will Accept/Oversee The Plan Of Care: Beena Gallardo Start of Care Date: 03/15/24 Onset Date: 09/29/23 Plan of Care Certification Date: 03/15/24 Next Certification Due Date: 05/10/24 Patient Identified by Name and Date of : Yes REHABILITATION AND SPORTS THERAPY PHYSICAL THERAPY TREATMENT NOTE ASSESSMENT: Yani Montes Cindakhloe tolerated the session with no issues. She demonstrated improvements in BPPV and dizziness. Reports a mild off sensation when walking, particularly at overnight for bathroom. Denies issues with bending or daytime walking, denies dizziness. Balance assessments today showing reduced falls risk per score; but does have some challenge with walking and turning head horizontally, and eyes closed balance. HEP updated. The patient will continue to benefit from ongoing skilled physical therapy to progress toward set goals. PLAN FOR NEXT VISIT: Repeat balance assessments and sx. SUBJECTIVE: Reports she isn't feeling as off when she walks. R ear has been plugged for a week or 2. Feels very plugged, hearing self talk. Going to go see Dr. Harris have cleaned out. Equilibrium feeling better, close to back to herself. Bending over to pick things up feeling better, uses wider ERIN also. Pain: Pain Pain Level: 0 Post Treatment Pain Post Treatment Pain Level: No Change OBJECTIVE MEASURES WITH LEVEL OF FUNCTION: Oculomotor Testing Fixation Present Head Thrusts: Negative VOR to slow head movements: Negative Oculomotor Testing Fixation Removed Spontaneous Nystagmus: No nystagmus Gaze Evoked Nystagmus: Not present Positional Testing Right [place]-Hallpike: Left beat, Asymptomatic, Greater than 60 seconds, Non-paroxysmal Left [place]-Hallpike: Right beat, Asymptomatic, Greater than 60 seconds, Non-paroxysmal Supine Head Center Testing: No nystagmus, Asymptomatic Right Ear Down: Left beat, Asymptomatic, Non-paroxysmal Right Ear Down Comments: No off feelings, nystagmus is slow and does not speed up/slow down as it did prior. Left Ear Down: Right beat, Asymptomatic, Greater than 60 seconds, Comments Left Ear Down Comments: Nystagmus again is non-parodyzmal, slow, asymptomatic does not speed up/slow down [place] Test: (no nystagmus) Lean Test: (No nystagmus) Null Point Test : (No Null Point Identified today) Positional Test Comments: Suspect Cupulolithiasis has either cleared or habituated as pt is asymptomatic and no further paroxysmal nystagmus noted, also unable to localize with BLT, Null Point; Or with speed of nystagmus as both sides are even, slow and no speed changes. Gait Gait Observation: No LOB noted with straight path ambulation; occasionally reaches for wall with turning TREATMENT: Neuromuscular Re-Education: 1: Positional Testing as above Pt assisted through each position of SCC testing manually and with verbal directions, eye movements assessed by PT throughout. 2: Educated pt on findings- appears she has habituated. Suspect remaining nystagmus may be pts baseline given prior VNG and no sx today. 3: Balance assessments as above 4: Gt with head turns hz every 3-4 steps change, mild slowing in gait but no LOB. Reports feeling off but self corrects without LOB or hand support. 20' x2 5: gt with head turns vertical with changes every 3-4 steps, 20'; no off feelings but does slow slightly during transitions. No LOB. x2 6: Romberg EC 20-30s with cues for attending to LE's (foot/ankle) min sway with occasional reaching for LT support. Advised for home complete in corner for safety and try to avoid reaching as first balance correction. 7: May hold Gufoni (asymptomatic currently) recommend re-start if sx return. Skilled Intervention: Skilled judgment used to assess appropriate program for balance and coordination activity. Patient education as noted. Home Exercise Program Assigned: 1: gt with head turns hz 20'; vt 20' near support surface for safety 1-2 minutes 1-2x daily 2: Romberg EC in corner 30s focusing on balance responses before reaching out. 2-3 reps 1-2x daily 3: L Gufoni PRN-- if dizzy feelings return. Billing Neuromuscular Re-Education Treatment Minutes: 51 Skilled Treatment Time Minutes (timed and untimed codes): 51 Total Session Time (minutes): 51 Session Start Time : 818 Session Stop Time : 909 Beena Gallardo PT documented in this encounter [facility] 03-19-2024 Telephone encounter Note POC faxed to [facility] rehab. Fax confirmation received. [facility] Work Phone: 03-19-2024 Miscellaneous Notes POC faxed to [facility] rehab. Fax confirmation received. [facility] Physical Therapy plan of care scanned to [facility] for completion and signature. documented in this encounter [facility] 03-18-2024 Telephone encounter Note [facility] Physical Therapy plan of care scanned to [facility] for completion and signature. [facility] 03-15-2024 Note HNO ID: [id number] Author: BEENA GALLARDO PT Service: ? Author Type: Physical Therapist Type: Progress Notes Filed: 03/15/2024 16:30 Note Text: Episode Visit Count: 1 Therapist That Will Accept/Oversee The Plan Of Care: Beena Gallardo Start of Care Date: 03/15/24 Onset Date: 09/29/23 Plan of Care Certification Date: 03/15/24 Next Certification Due Date: 05/10/24 Patient Identified by Name and Date of : Yes REHABILITATION AND SPORTS THERAPY PHYSICAL THERAPY RE-EVALUATION PLAN OF CARE: Assessment: Yani Gerard presents with chief complaint of imbalance upon rising from bed and bending over that interferes with Comments walking (overnight) getting up from chair, bending over with ADL and work. She presents with impairments in ADL's, balance, gait, independence in exercise, patient reported outcome measures, stress management, and symptom management. PROMIS? (Patient-Reported Outcomes Measurement Information System) scores were reviewed and identified as within normal limits. Prognosis for therapy is Fair due to: clinical presentation, multiple co- morbidities, advanced age, chronic nature of impairments . Examination today most consistent with L HZ Cupulolithiasis, treatment in home and HEP initiated. Will benefit from balance assessments at next appointment. She will benefit from skilled therapy services to meet the goals established for this plan of care as noted below. 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 Further assessments of balance and response to treatment warranted. Goals for Episode of Care: created on 03/15/24 through 05/10/24 Patient will have negative positional testing for BPPV. Patient/family member will be independent in performing self PRT. Patient will verbalize the understanding of the diagnosis BPPV, how to recognize symptoms and what to do if they return. Patient will be independent with home exercise program and progression. Patient will return to prior level of function with all activities of daily living with trace reports of dizziness. Patient Goals: improve balance and off sensation. Planned Interventions, Frequency, and Duration: Current Frequency: 1x/week Duration: 8 weeks Total Number of Visits Planned: 8 Planned Treatment Interventions: Therapeutic exercise (54214), Neuromuscular re-education (58937), Manual therapy (45371), Therapeutic activities (58954), Self-long term management (29001), Gait Training (70333), Patient/Family/Caregiver Education, Canalith Repositioning Maneuvers (83289) PLAN FOR NEXT VISIT: Repeat VNG, treat as appropriate. Consider habituation exercises Patient demonstrates good understanding of plan of care and treatment. The above goals and plan of care were discussed and agreed upon by patient/family. SUBJECTIVE: Since extended hospitalizations with extensive workups and unable to find anything. Since then feeling very off balance. Concern it is the FND vs. BPPV. Underwent PT for that; Psychology- no issues ID and d/c. Been 6 weeks since episode. Was using a cane, but felt like getting worse using the cane. Holding cane hand would shake no matter which side the cane was on. Feeling better without cane. Sx can be off and on. Sitting and going to stand up she will feel kind of off. Stands for a bit. Getting up to go to bathroom at night feels pretty off. Finds herself stumbling/veering. A little off with sitting up OOB. Bending over to pick things up can be a little off as well. Onset: September of 2023 Triggers: change in position Concurrent Neck symptoms: slight- a little bothering- turning far a little sore. Concurrent LUNA symptoms: no Concurrent Ear/Hearing symptoms: denies Concurrent Jaw Symptoms: denies Imbalance: present Motion Sensitivity: no issues. Falls no History of Concussion: Fall 2022- blowing leaves, tripped on rock and hit head on gazebo. 3-4 weeks to recover. (Dizzy, LUNA, nausea) Brainstem Red Flags Diplopia Yes- Going on 2 yrs- when looking R everything is double; looking left- better. Glasses with prism. R did not improve. When really tired things will be double in the morning. Unsure why. Dysarthria no Dysphagia no Drop Attack no Dizziness yes LH no spinning Nausea no Nystagmus no Numbness no Ataxia of Gait at times if getting up overnight. 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 Relevant Medical History Left Hemiparesis Tremor FND/FMD (tremor) HTN HLD CAD Paroxysmal SVT Unstable Angina Pulmonary HTN Bradycardia Atherosclerosis of Aorta Interstitial Lung Disease Divergence Insufficiency Statin Myopathy L Arm Weakness Abnormality of Gait TIA Stenosis of both vertebral arteries S/p Coronary angioplasty Relevant Medical Testing 12/10/23: MRI Brain: No acute process per radiology report 12/09/23: CT/CTA Head, Neck, Brain: unremarkable except Moderate vertebral artery stenosis bilaterally. Per Radiology report I (more content not included)... [facility] 03-15-2024 History of Present illness Narrative Episode Visit Count: 1 Therapist That Will Accept/Oversee The Plan Of Care: Beena Gallardo Start of Care Date: 03/15/24 Onset Date: 09/29/23 Plan of Care Certification Date: 03/15/24 Next Certification Due Date: 05/10/24 Patient Identified by Name and Date of : Yes REHABILITATION AND SPORTS THERAPY PHYSICAL THERAPY RE-EVALUATION PLAN OF CARE: Assessment: Yani Gerard presents with chief complaint of imbalance upon rising from bed and bending over that interferes with Comments walking (overnight) getting up from chair, bending over with ADL and work. She presents with impairments in ADL's, balance, gait, independence in exercise, patient reported outcome measures, stress management, and symptom management. PROMIS (Patient-Reported Outcomes Measurement Information System) scores were reviewed and identified as within normal limits. Prognosis for therapy is Fair due to: clinical presentation, multiple co- morbidities, advanced age, chronic nature of impairments . Examination today most consistent with L HZ Cupulolithiasis, treatment in home and HEP initiated. Will benefit from balance assessments at next appointment. She will benefit from skilled therapy services to meet the goals established for this plan of care as noted below. 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 Further assessments of balance and response to treatment warranted. Goals for Episode of Care: created on 03/15/24 through 05/10/24 Patient will have negative positional testing for BPPV. Patient/family member will be independent in performing self PRT. Patient will verbalize the understanding of the diagnosis BPPV, how to recognize symptoms and what to do if they return. Patient will be independent with home exercise program and progression. Patient will return to prior level of function with all activities of daily living with trace reports of dizziness. Patient Goals: improve balance and off sensation. Planned Interventions, Frequency, and Duration: Current Frequency: 1x/week Duration: 8 weeks Total Number of Visits Planned: 8 Planned Treatment Interventions: Therapeutic exercise (43328), Neuromuscular re-education (26957), Manual therapy (69024), Therapeutic activities (48442), Self-long term management (94423), Gait Training (27481), Patient/Family/Caregiver Education, Canalith Repositioning Maneuvers (01902) PLAN FOR NEXT VISIT: Repeat VNG, treat as appropriate. Consider habituation exercises Patient demonstrates good understanding of plan of care and treatment. The above goals and plan of care were discussed and agreed upon by patient/family. SUBJECTIVE: Since extended hospitalizations with extensive workups and unable to find anything. Since then feeling very off balance. Concern it is the FND vs. BPPV. Underwent PT for that; Psychology- no issues ID and d/c. Been 6 weeks since episode. Was using a cane, but felt like getting worse using the cane. Holding cane hand would shake no matter which side the cane was on. Feeling better without cane. Sx can be off and on. Sitting and going to stand up she will feel kind of off. Stands for a bit. Getting up to go to bathroom at night feels pretty off. Finds herself stumbling/veering. A little off with sitting up OOB. Bending over to pick things up can be a little off as well. Onset: September of 2023 Triggers: change in position Concurrent Neck symptoms: slight- a little bothering- turning far a little sore. Concurrent LUNA symptoms: no Concurrent Ear/Hearing symptoms: denies Concurrent Jaw Symptoms: denies Imbalance: present Motion Sensitivity: no issues. Falls no History of Concussion: Fall 2022- blowing leaves, tripped on rock and hit head on gazebo. 3-4 weeks to recover. (Dizzy, LUNA, nausea) Brainstem Red Flags Diplopia Yes- Going on 2 yrs- when looking R everything is double; looking left- better. Glasses with prism. R did not improve. When really tired things will be double in the morning. Unsure why. Dysarthria no Dysphagia no Drop Attack no Dizziness yes LH no spinning Nausea no Nystagmus no Numbness no Ataxia of Gait at times if getting up overnight. 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 Relevant Medical History Left Hemiparesis Tremor FND/FMD (tremor) HTN HLD CAD Paroxysmal SVT Unstable Angina Pulmonary HTN Bradycardia Atherosclerosis of Aorta Interstitial Lung Disease Divergence Insufficiency Statin Myopathy L Arm Weakness Abnormality of Gait TIA Stenosis of both vertebral arteries S/p Coronary angioplasty Relevant Medical Testing 12/10/23: MRI Brain: No acute process per radiology report 12/09/23: CT/CTA Head, Neck, Brain: unremarkable except Moderate vertebral artery stenosis bilaterally. Per Radiology report Imbalance, feeling off Patient Goals: improve balance and off sensation. 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 5 points is clinically meaningfully difference Percentiles provide an indication of how the patient's score ranks in relation to the general population. Higher percentile rankings indicate better function/quality of life. 50th percentile is the average of the general population and indicates half of respondents had a worse score. OBJECTIVE MEASURES WITH LEVEL OF FUNCTION: Oculomotor Testing Fixation Present Ocular ROM: WNL Spontaneous Nystagmus: No nystagmus Smooth pursuit: Horizontal, Vertical and Diagonal all WNL Saccadic eye movements: Horizontal, vertical and oblique all WNL. Head Thrusts: Negative Oculomotor Testing Fixation Removed Spontaneous Nystagmus: No nystagmus Gaze Evoked Nystagmus: Not present Positional Testing Right [place]-Hallpike: Left beat, Asymptomatic, Greater than 60 seconds, Paroxysmal Left [place]-Hallpike: Right beat, Asymptomatic, Greater than 60 seconds, Paroxysmal Supine Head Center Testing: Left beat, Asymptomatic, Paroxysmal, Greater than 60 seconds Right Ear Down: Left beat, Greater than 60 seconds, Symptomatic, Paroxysmal, Comments Right Ear Down Comments: A little off in this position. Left Ear Down: Right beat, Asymptomatic, Greater than 60 seconds, Comments Left Ear Down Comments: Nystagmus much faster and more intense here. [place] Test: Right beat Lean Test: Left beat Null Point Test : Positive left Positional Test Comments: Most consistent with L HC CUpulolithiasis. Pt has h/o this as well. Gait Gait Observation: En bloc, guarded with turns. Mild unsteadiness intermittently Education: Education Learning Preferences: Demonstration, Explanation, Performance, Printed Materials Barriers: None Learning/educational needs: Safety, Home exercise program, Plan of Care, Changes in Plan of Care, Posture Education Provided: Yes, see treatment interventions for education provided Education Provided To: Patient Education Mode/Type: Demonstration, Explanation/Discussion, Literature/Printed Materials, Performance, Teach Back Response to Education/Teach Back: States/Identifies, Return Demonstration, Requires Review/Additional Education TREATMENT: PT Treatment Interventions: Canalith Repositioning Re-evaluation: Performed due to the following change of patient status: Referral for specialty vestibular assessment. Self-Fpc Management: 1: Vestibular Education Pt/family education on inner ear anatomy, objective findings, and physiology as well as pathologies that effect this area. Educated on POC. Discussed PT role in testing and addressing. Provided written instructions re: BPPV- RENNY and CPG FAQ 2: BPPV Education for L HZ Cupulolithiasis using 3D Vestibular model Skilled Intervention: Reviewed patient specific diagnosis in relation to activities of daily living/home management. Canalith Repositionin: L CuRM x1 noting ageotropic horizontal nystagmus t/o treatment today, is paroxysmal. 2: L Gufoni x1 with education for home (L Sidelying>Nose up x 2-3 min) Skilled Intervention: Professional judgment was used to determine specific treatment interventions based on assessment of symptoms. Physically assisted patient through each step of repositioning. Verbal and tactile cues provided to patient to assist in moving between each position of maneuver in correct sequence. Patient education including handouts provided regarding self repostitioning techniques to be performed at home. Home Exercise Program Assigned: 1: L Bjfoni 2 reps 2-3x daily until f/u. Billing * Re-Evaluation : 1 Unit Self-Care/Home Management Treatment Minutes: 25 * Canalith Repositionin unit Skilled Treatment Time Minutes (timed and untimed codes): 43 Total Session Time (minutes): 43 Session Start Time : 1217 Session Stop Time : 1300 Beena Gallardo PT documented in this encounter [facility] 03-11-2024 Telephone encounter Note Images from the original note were not included. Radha Zaragoza APRN.[employer]AT CANVAS MAKER INSTALLER P Card [facility] [employer] Please call and let her know that her potassium is a little low. I have sent a script for potassium supplement. She should have labs repeated in 2 weeks. Her CXR did not show any overt signs of heart failure. ?possible bronchitis. She should also discuss with her PCP. [facility] 03-11-2024 Miscellaneous Notes Images from the original note were not included. Radha Zaragoza APRN.BOAT CANVAS MAKER INSTALLER P Card [facility] Please call and let her know that her potassium is a little low. I have sent a script for potassium supplement. She should have labs repeated in 2 weeks. Her CXR did not show any overt signs of heart failure. ?possible bronchitis. She should also discuss with her PCP. documented in this encounter [facility] 03-07-2024 History of Present illness Narrative Radiology Service Progress Note PATIENT NAME: Yani Gerard DATE OF SERVICE: March 07, 2024 TIME: 2:27 PM PATIENT IDENTITY VERIFICATION COMPLETED USING TWO (2) IDENTIFIERS: Name and Date of confirmed by patient verbally and Name and Date of confirmed by identification band. FALL SCREENING: Has the patient had 2 falls in the last year or 1 fall with injury or currently using an Ambulatory Assistive Device (Walker, Cane, Wheelchair, Crutches, etc.)? No PATIENT GENDER DATA: Female. status: : No status: N/A PATIENT RELEVANT IMPLANT DATA REVIEWED: Not Applicable PATIENT PRESENTS WITH AN IMPLANTABLE OR ATTACHED MD SENIOR RESEARCH SCIENTIST: No RADIOLOGY DEPARTMENT: General X-ray: Exam(s) Completed: Chest X-Ray PERIPHERAL IV DATA: Not applicable SIGNED BY: RT Savannah(Cesar) March 07, 2024 2:27 PM documented in this encounter [facility] 03-07-2024 Note HNO ID: [id number] Author: MARIANA DUMONT RT(Cesar) Service: ? Author Type: Technologist Type: Progress Notes Filed: 03/07/2024 14:29 Note Text: Radiology Service Progress Note PATIENT NAME: Yani Gerard DATE OF SERVICE: March 07, 2024 TIME: 2:27 PM PATIENT IDENTITY VERIFICATION COMPLETED USING TWO (2) IDENTIFIERS: Name and Date of confirmed by patient verbally and Name and Date of confirmed by identification band. FALL SCREENING: Has the patient had 2 falls in the last year or 1 fall with injury or currently using an Ambulatory Assistive Device (Walker, Cane, Wheelchair, Crutches, etc.)? No PATIENT GENDER DATA: Female. status: : No status: N/A PATIENT RELEVANT IMPLANT DATA REVIEWED: Not Applicable PATIENT PRESENTS WITH AN IMPLANTABLE OR ATTACHED MD SENIOR RESEARCH SCIENTIST: No RADIOLOGY DEPARTMENT: General X-ray: Exam(s) Completed: Chest X-Ray PERIPHERAL IV DATA: Not applicable SIGNED BY: RT Savannah(R) March 07, 2024 2:27 PM [facility] 03-04-2024 Note Addended by: RADHA ZARAGOZA on: 03/04/2024 04:42 PM Modules accepted: Orders [facility] 03-04-2024 Miscellaneous Notes Addended by: RADHA ZARAGOZA on: 03/04/2024 04:42 PM Modules accepted: Orders Patient's called back regarding concerns of leg swelling and shortness of breath. Voiced concerns that Hector is already following the below recommendations and has not seen any improvement. States she has considerable leg swelling and shortness of breath with activity. This has been worsening for the past 6 weeks. Endorses 7-8 lb weight gain. Typically very active and having difficulty climbing a flight of stairs without stopping to sit and catch her breath at the top of the stairs. Pt and are grateful that stress test is normal but would like answers as to why she is feeling the way she is feeling. Advised that message would be sent to Dr. Harkins and Radha Zaragoza CNP regarding next steps. Advised that should symptoms worsen or not resolve with rest that patient should evaluated in the emergency department. Verbalizes understanding. I called pt to advise information below. Pt said her PCP increased the lasix dose from 20 mg daily to 40mg daily to help with BLE edema. Pt education given for compression stockings, elevate legs at rest, low sodium diet, and ambulation. Pt confirmed understanding, and no further questions. Images from the original note were not included. Radha Zaragoza APRN.BOAT CANVAS MAKER INSTALLER P Card [facility] [place], Please advise her that her stress test was normal and low risk. Continue medications. Thanks, Radha Zaragoza APRN.BOAT CANVAS MAKER INSTALLER documented in this encounter [facility] 03-04-2024 Telephone encounter Note Patient's called back regarding concerns of leg swelling and shortness of breath. Voiced concerns that Hector is already following the below recommendations and has not seen any improvement. States she has considerable leg swelling and shortness of breath with activity. This has been worsening for the past 6 weeks. Endorses 7-8 lb weight gain. Typically very active and having difficulty climbing a flight of stairs without stopping to sit and catch her breath at the top of the stairs. Pt and are grateful that stress test is normal but would like answers as to why she is feeling the way she is feeling. Advised that message would be sent to Dr. Harkins and Radha Zaragoza CNP regarding next steps. Advised that should symptoms worsen or not resolve with rest that patient should evaluated in the emergency department. Verbalizes understanding. [facility] 03-04-2024 Telephone encounter Note I called pt to advise information below. Pt said her PCP increased the lasix dose from 20 mg daily to 40mg daily to help with BLE edema. Pt education given for compression stockings, elevate legs at rest, low sodium diet, and ambulation. Pt confirmed understanding, and no further questions. [facility] 03-04-2024 Telephone encounter Note Images from the original note were not included. Radha Zaragoza APRN.BOAT CANVAS MAKER INSTALLER P Card [facility] [place], Please advise her that her stress test was normal and low risk. Continue medications. Thanks, Radha Zaragoza APRN.BOAT CANVAS MAKER INSTALLER [facility] 03-01-2024 Note HNO ID: [id number] Author: NONA KEARNS RT(R) Service: ? Author Type: Technologist Type: Progress Notes Filed: 03/01/2024 13:57 Note Text: RADIOLOGY SERVICE PROGRESS NOTE SERVICE DATE: 03/01/2024 SERVICE TIME: 12:34 PM PATIENT IDENTITY VERIFICATION COMPLETED USING TWO (2) STANDARD IDENTIFIERS: Name and Date of confirmed by patient verbally FALL SCREENING: Has the patient had 2 falls in the last year or 1 fall with injury or currently using an Ambulatory Assistive Device (Walker, Cane, Wheelchair, Crutches, etc.)? No PATIENT GENDER DATA: .female : No ALLERGIES: Reviewed and unchanged MEDICATIONS REVIEWED: Yes PATIENT RELEVANT IMPLANT DATA REVIEWED: Not Applicable IV SITE: Ambulatory: A peripheral IV was started in the Right antecubital site with a Angio cath: 22 gauge. POST EXAM PIV STATUS: Discontinued PROCEDURE TYPE: ND Stress: 13.5mCi [id number]-[id number] was administered IV for Rest Imaging at 1230 by RT Ventura(R). 36 mCi [id number] was administered IV for Stress Imaging at 1320 by RT Ventura(R). PATIENT DISCHARGED TO: Ambulatory patient, left ND department area. A Diagnostic radioactive procedure has taken place, with no further precautions necessary other than routine body substance precautions. More information regarding radiation safety can be found using this link: [email or web address] 20Diagnostic%20Nuclear%20Medicine% 20Procedures.[email or web address] SIGNATURE: RT Ventura(R) PATIENT NAME: Yani Gerard DATE: March 01, 2024 TIME: 12:34 PM PAGER/CONTACT #: [facility] 03-01-2024 History of Present illness Narrative RADIOLOGY SERVICE PROGRESS NOTE SERVICE DATE: 03/01/2024 SERVICE TIME: 12:34 PM PATIENT IDENTITY VERIFICATION COMPLETED USING TWO (2) STANDARD IDENTIFIERS: Name and Date of confirmed by patient verbally FALL SCREENING: Has the patient had 2 falls in the last year or 1 fall with injury or currently using an Ambulatory Assistive Device (Walker, Cane, Wheelchair, Crutches, etc.)? No PATIENT GENDER DATA: .female : No ALLERGIES: Reviewed and unchanged MEDICATIONS REVIEWED: Yes PATIENT RELEVANT IMPLANT DATA REVIEWED: Not Applicable IV SITE: Ambulatory: A peripheral IV was started in the Right antecubital site with a Angio cath: 22 gauge. POST EXAM PIV STATUS: Discontinued PROCEDURE TYPE: NM Stress: 13.5mCi [id number]-[id number] was administered IV for Rest Imaging at 1230 by RT Ventura(R). 36 mCi Kn61c-Saqmlwc was administered IV for Stress Imaging at 1320 by RT Ventura(R). PATIENT DISCHARGED TO: Ambulatory patient, left [place] department area. A Diagnostic radioactive procedure has taken place, with no further precautions necessary other than routine body substance precautions. More information regarding radiation safety can be found using this link: [email or web address] %[email or web address] SIGNATURE: RT Ventura(R) PATIENT NAME: Yani Gerard DATE: March 01, 2024 TIME: 12:34 PM PAGER/CONTACT #: documented in this encounter [facility] 02-29-2024 Note HNO ID: [id number] Author: NIKOLAS SOTO PT Service: ? Author Type: Physical Therapist Type: Progress Notes Filed: 08/14/2024 11:11 Note Text: 08/14/2024 [facility] REHABILITATION AND SPORTS THERAPY PHYSICAL THERAPY DISCONTINUANCE OF CARE Plan of Care Period: Start of Care Date: 03/15/24 Last Visit Date: 02/29/2024 Therapy Program: The following is a summary of the interventions provided for this episode of care; Neuromuscular re-education Assessment: The following is the goal status: Goals for Episode of Care: created on 01/18/24 through 03/14/24 Updated 02/29/24 Patient will be able to tolerate functional activities for up to 2-4 hours without increased symptoms . Status: GOAL MET Patient will ambulate 1,000 feet without assistive device independently . Status; GOAL MET, patient no longer using cane outside or during therapy sessions Patient demonstrates independent and proper use of assistive device to allow for improved walking quality and safety therefore reducing the risk of falls. Status: GOAL MET, no longer using an assistive device Improve score on Timed Up and Go to <12 sec to decrease risk of falls . Status: GOAL MET Improve score on Timed Up and Go COG (TUG COG) to < 10% difference from Timed Up and Go. Status: PROGRESSING Improve score on Timed Up and Go Manual to < 10% difference from Timed Up and Go. Status: GOAL MET Patient will independently demonstrate 3-4 diverted attention techniques for symptom management. Status: GOAL MET Patient Goals: Find out what to do to manage symptoms. VESTIBULAR GOALS: Goals for Episode of Care: created on 03/15/24 through 05/10/24 Patient will have negative positional testing for BPPV. Patient/family member will be independent in performing self PRT. Patient will verbalize the understanding of the diagnosis BPPV, how to recognize symptoms and what to do if they return. Patient will be independent with home exercise program and progression. Patient will return to prior level of function with all activities of daily living with trace reports of dizziness. Patient Goals: improve balance and off sensation. Based on the most recent progress report, patient was progressing as expected toward functional goals based on home exercise program compliance and appointment compliance. Reason for Discontinuation of Care: Patient has not returned to therapy or scheduled additional follow-up appointments. Nikolas Soto, PT Episode Visit Count: 5 Therapist That Will Accept/Oversee The Plan Of Care: Alison Klein PT Start of Care Date: 01/18/24 Onset Date: 10/14/23 Plan of Care Certification Date: 01/18/24 Next Certification Due Date: 03/14/24 REHABILITATION AND SPORTS THERAPY PHYSICAL THERAPY PROGRESS REPORT PLAN OF CARE UPDATE: Assessment: Yani Gerard demonstrates significant improvement in symptom management . She has progressed toward goals. Patient continues to present with impairments in balance, flexibility, gait, independence in exercise, overall function, and symptom management that interfere with walking, physical activities . Current prognosis is Good due to: current objective clinical presentation, good support system/ coping skills . Patient with significant improvements in symptom management since initiation of PT. At this time, patient has been symptom free for 3 weeks and last time episode occurred it was significantly shorter then previous episodes. Patient has met or progressed towards goals and feels ready for discharge from PT. Educated patient that chart will stay open for ~3 months prior to formal discharge and to return in said period if symptoms return. Patient demonstrated understanding. She will benefit from continued skilled therapy services to meet the updated goals for this plan of care as noted below. Goals for Episode of Care: created on 01/18/24 through 03/14/24 Updated 02/29/24 Patient will be able to tolerate functional activities for up to 2-4 hours without increased symptoms . Status: GOAL MET Patient will ambulate 1,000 feet without assistive device independently . Status; GOAL MET, patient no longer using cane outside or during therapy sessions Patient demonstrates independent and proper use of assistive device to allow for improved walking quality and safety therefore reducing the risk of falls. Status: GOAL MET, no longer using an assistive device Improve score on Timed Up and Go to <12 sec to decrease risk of falls . Status: GOAL MET Improve score on Timed Up and Go COG (TUG COG) to < 10% difference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 encounter [facility] 02-12-2024 Instructions Radha Zaragoza APRN.CHERIE - 02/12/2024 11:46 AM EDT - Stress Test - Start lasix 20 mg daily - Check labs in 2 weeks. documented in this encounter [facility] 02-12-2024 History of Present illness Narrative Images from the original note were not included. [facility] Department of Cardiovascular Medicine SECTION OF CLINICAL CARDIOLOGY OUTPATIENT VISIT DATE February 12, 2024 OUTPATIENT VISIT TYPE ESTABLISHED PRIMARY CARE PHYSICIAN: Kyle Amin [address] [place] [address] REFERRING PHYSICIAN: No referring provider defined for this encounter. CHIEF COMPLAINT: Follow up, leg swelling HISTORY OF PRESENT ILLNESS: Ms. Gerard is a 83 year old female who presents today for a cardiovascular medicine follow-up visit. PMHx of TIA, vertebral artery stenosis, CAD s/p ELIS- LAD ([facility] 05/2023 showed no ISR, non obstructive 50% LAD stenosis, 80% stenosis in non dominant RCA), HTN, HLD. BRYANT with Dr. Harkins 11/21/23. She has been experiencing increased leg swelling and exertional shortness of breath over the last several months. Patient denies chest pain, cough, wheezing, orthopnea, pnd, lightheadedness or syncope. 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 PAST MEDICAL HISTORY Diagnosis Date Arthritis Atrial fibrillation (HCC) pafib short lived suspected per apple watch strip, Biotel in place Benign paroxysmal positional vertigo of right ear 10/03/2018 CAD (coronary artery disease) 03/28/2019 LAD proximal stent , RCA nondominant bifurcating severe disease small medical rx Cancer (HCC) Dizziness 09/24/2018 HTN (hypertension) Hypertension Lumbar back pain with radiculopathy affecting left lower extremity 03/21/2019 Pulmonary HTN (HCC) TIA (transient ischemic attack) left leg motion movement and slurred speech PAST SURGICAL HISTORY Procedure Laterality Date CC CORONARY STENT 03/28/2019 LAD prox stent , RCA nondominant bifurcating severe disease small medical rx , [facility] -No restenosis in stent lad mild disease 06/14/23 POST-CATARACT LASER SURGERY Bilateral REMV CATARACT EXTRACAP,INSERT LENS Bilateral 2015 [facility] TOTAL HIP REPLACEMENT Right TOTAL HIP REPLACEMENT Right SOCIAL HISTORY Social History Tobacco Use Smoking status: Never Smokeless tobacco: Never Vaping Use Vaping Use: Never used Substance Use Topics Alcohol use: Yes Comment: wine occas Drug use: No FAMILY HISTORY Problem Relation Age of Onset Heart Mother heart attack Hypertension Mother Cancer Mother stomach Cancer Sister breast non smoker half sister Heart Maternal Grandmother heart attack Diabetes No Family History Cataract No Family History Glaucoma No Family History Macular Degen No Family History ALLERGIES: ALLERGIES Allergen Reactions Ropinirole Other: See Comments Other reaction(s): nausea/dizziness, blurry vision Jcoeugn-Izy-Yin Red* Other: See Comments Sulfa (Sulfonamide * Rash MEDICATIONS: evolocumab (REPATHA SURECLICK) 140 mg/mL pen injector^Inject 140 mg subcutaneously as directed. Inject 1 pen subcu every 2 wks^Disp: 6 Each^Rfl: 3 metoprolol succinate ER (TOPROL XL) 50 mg 24 hr tablet^Take 0.5 tablet by mouth once daily.^Disp: 90 tablet^Rfl: 3 losartan (COZAAR) 25 mg tablet^Take 2 tablets by mouth two times a day.^Disp: 180 tablet^Rfl: 3 levothyroxine (SYNTHROID) 50 mcg tablet^Take 1 tablet by mouth daily at 6:00 am. Patient should start on December 12, 2023.^Disp: 30 tablet^Rfl: 0 INV VITAMIN D3 5000 UNITS CAPSULE (IRB [id number])^Take 5,000 Units by mouth once daily. For Investigational Drug Use Only. PI: Stevan Lozoya, PhD. Take one capsule by mouth daily for 3 months prior to surgery and 3 months after surgery.^Disp: ^Rfl: cyanocobalamin (VITAMIN B-12) 1,000 mcg tab^Take 1,000 mcg by mouth once daily.^Disp: ^Rfl: biotin 1 mg cap^Take by mouth.^Disp: ^Rfl: omega 0-jqh-ubd-fish oil 1,000 mg (250 mg-750 mg)/5 mL liqd^Take by mouth.^Disp: ^Rfl: Magnesium 200 mg tab^Take 2 tablets by mouth once daily.^Disp: 180 tablet^Rfl: 3 aspirin 81 mg chewable tablet^Aspirin Active 81 MG PO Daily March 27, 2019 11:00pm^Disp: ^Rfl: amLODIPine (NORVASC) 10 mg tablet^Take 1 tablet by mouth once daily.^Disp: 90 tablet^Rfl: 3 isosorbide mononitrate ER (IMDUR) 30 mg 24 hr tablet^Take 1 tablet by mouth once daily.^Disp: 90 tablet^Rfl: 3 ezetimibe (ZETIA) 10 mg tablet^Take 1 tablet by mouth once daily.^Disp: 90 tablet^Rfl: 3 (Patient taking differently: Take 10 mg by mouth daily at bedtime.) ranolazine SR (RANEXA) 1,000 mg tab ER 12 hr^Take 1 tablet by mouth twice daily.^Disp: 180 tablet^Rfl: 3 nitroglycerin sublingual (NITROQUICK) 0.3 mg SL tablet^Dissolve 1 tablet under the tongue every 5 minutes as needed for chest pain.^Disp: 25 tablet^Rfl: 3 cholecalciferol, vitamin D3, (VITAMIN D3 ORAL)^Take by mouth.^Disp: ^Rfl: Ascorbic Acid (VITAMIN C) 100 mg tablet^Take 100 mg by mouth once daily.^Disp: ^Rfl: acetaminophen 650 mg CR tablet^Take 650 mg by mouth every 8 hours as needed.^Disp: ^Rfl: pramipexole (MIRAPEX) 0.5 mg tablet^Take 0.25 mg by mouth two times a day.^Disp: ^Rfl: clopidogrel (PLAVIX) 75 mg tablet^Take 75 mg by mouth once daily.^Disp: ^Rfl: (Patient not taking: Reported on 02/12/2024) zcyllywcdiu-qsgncuier-lweozyaq (TRELEGY ELLIPTA) 100-62.5-25 mcg inhalation powder^Inhale 1 Puff as instructed as needed.^Disp: ^Rfl: (Patient not taking: Reported on 02/12/2024) REVIEW OF SYSTEMS: GENERAL: Negative for: Weight loss or gain, Fever or Chills, Weakness and Sleep difficulties. HEENT: Negative for: Headache, Impaired Vision, Glasses, Hearing Impairment, Ringing in Ears, Nosebleeds, Poor Dental Care, Bleeding Gums and Dentures. NECK: Negative for: Swelling, Pain, Stiffness RESPIRATORY: See HPI GASTROINTESTINAL: Negative for: Trouble swallowing, Heartburn, Change in bowel habits, Blood in stool, Dark black stools MUSCULOSKELETAL: Negtive for: Muscle or joint pain, stiffness, Joint swelling NEUROLOGIC/PSYCHIATRIC: Negative for: Weakness, Paralysis, Numbness, Tingling, Tremor, Nervousness or anxiety, Depressed mood, Memory loss SKIN: Negative for: Rash, Itching HEMATOLOGICAL/LYMPHATIC: Negative for: Easy bruising, Easy bleeding ENDOCRINE: Negative for: Heat or Cold Intolerance, Excessive Sweating, Frequent Urination, Frequent Thirst PHYSICAL EXAMINATION: BP 128/68 Pulse (!) 58 Ht 154.9 cm (5' 1 ) Wt 73.9 kg (163 lb) BMI 30.80 kg/m General: Well appearing, in no acute distress, speaking in complete sentences. Skin: No clubbing, no cyanosis. Eyes: Non-icteric sclerae Oropharynx: Teeth in good repair. Neck: No jugular venous distention, no carotid bruits, carotids have a normal upstroke, no palpable thyromegaly. Lungs: Clear to auscultation bilaterally, no wheezing or rhonchi. Heart: Regular rhythm, PMI not displaced, S1, S2 normal, no S3, no S4, no heaves, no rub and no murmur. Abdomen: Soft, nontender, bowel sounds normal, no palpable organomegaly, no bruits. Extremities: No peripheral edema . Grade 2/4 distal pulses bilaterally. Neuro: Oriented to person, place and time, alert, cooperative, gait coordinated. CARDIOVASCULAR MEDICINE TESTING: Electrocardiogram: Last ECHO Result Conclusion ECHO WITH AGITATED SALINE CONTRAST Collected: 12/11/2023 11:15 AM (Final result) Impression: CONCLUSIONS: - Technically difficult exam due to body habitus. - Exam indication: TIA - The left ventricle is normal in size. Left ventricular systolic function is normal. EF = 70 5% (2D biplane) Grade II left ventricular diastolic dysfunction. - The right ventricle is normal in size. Right ventricular systolic function is normal. - The left atrial cavity is moderately dilated. - Exam was compared with the prior echocardiographic exam performed on 12-29-2022. Comparable findings. * * * Final * * * Zio monitor Enrollment dates: 11/21/2023 - 12/20/2023 : Tracings and data reviewed. No atrial fibrillation No ventricular tachycardia No pauses Normal event recorder No significant arhythmia detected.. Fiona Harkins MD [facility] 06/14/23: CORONARY ANGIOGRAPHY: LEFT MAIN TRUNK: No Stenosis LEFT ANTERIOR DESCENDING: Less Than 40% Stenosis Location: Mid and Stent Present with No Stenosis Location: Proximal LEFT CIRCUMFLEX: No Stenosis RAMUS INTERMEDIUS: No Stenosis DOMINANT: YES POSTERIOR DESCENDING: No Stenosis RIGHT CORONARY: 80% Stenosis Location: Mid DOMINANT: NO LV GRAM: LVEF: Normal ( 55% or Greater) WALL MOTION: Normal MITRAL VALVE REGURGITATION: Not Assessed HEMODYNAMICS: LVEDP: 10 LV - AORTA: No Gradient I have personally reviewed the Electrocardiogram and Laboratory Testing. IMPRESSION: Ms. Gerard is a 83 year old female who presents today for a cardiovascular medicine follow-up visit. PMHx of TIA, vertebral artery stenosis, CAD s/p ELIS- LAD ([facility] 05/2023 showed no ISR, non obstructive 50% LAD stenosis, 80% stenosis in non dominant RCA), HTN, HLD. Here for follow up, experiencing increased leg swelling and STANLEY. Echo from 11/2023 shows preserved LVEF, grade II LVDD, LA dilation. Zio monitor done in October shows no significant arrhythmia. Blood pressure is well controlled. EKG shows sinus bradycardia 58 bpm. Similar to previous tracings. Discussed importance of reducing sodium in the diet. PLAN AND RECOMMENDATIONS: - Furosemide 20 mg daily - Check labs in 2 week. - Pharm stress test. - Continue metoprolol succinate 25 mg daily, plavix 75 mg daily, asa 81 mg daily, isosorbide mononitrate 30 mg daily, Repatha 140mg q 2 weeks, zetia 10 mg daily, ranolazine 1000 mg BID, amlodipine 10 mg daily. CONTACT INFORMATION: Radha Zaragoza APRN.[employer] Cardiology [id number] [facility] [address] [facility] [address] Dept: [phone] Dept documented in this encounter [facility] 02-12-2024 Note HNO ID: [id number] Author: RADHA ZARAGOZA APRN.CHERIE Service: ? Author Type: Nurse Practitioner Type: Progress Notes Filed: 02/12/2024 13:47 Note Text: [facility] Vascular [facility] Thor[facility] Department of Cardiovascular Medicine SECTION OF CLINICAL CARDIOLOGY OUTPATIENT VISIT DATE February 12, 2024 OUTPATIENT VISIT TYPE ESTABLISHED PRIMARY CARE PHYSICIAN: Kyle Amin [address] [facility] [address] [place] [address] REFERRING PHYSICIAN: No referring provider defined for this encounter. CHIEF COMPLAINT: Follow up, leg swelling HISTORY OF PRESENT ILLNESS: Ms. Gerard is a 83 year old female who presents today for a cardiovascular medicine follow-up visit. PMHx of TIA, vertebral artery stenosis, CAD s/p ELIS- LAD ([facility] 05/2023 showed no ISR, non obstructive 50% LAD stenosis, 80% stenosis in non dominant RCA), HTN, HLD. BRYANT with Dr. Harkins 11/21/23. She has been experiencing increased leg swelling and exertional shortness of breath over the last several months. Patient denies chest pain, cough, wheezing, orthopnea, pnd, lightheadedness or syncope. Still able to run her BANDB. PAST MEDICAL HISTORY Diagnosis Date Arthritis Atrial fibrillation (HCC) pafib short lived suspected per apple watch strip, Biotel in place Benign paroxysmal positional vertigo of right ear 10/03/2018 CAD (coronary artery disease) 03/28/2019 LAD proximal stent , RCA nondominant bifurcating severe disease small medical rx Cancer (HCC) Dizziness 09/24/2018 HTN (hypertension) Hypertension Lumbar back pain with radiculopathy affecting left lower extremity 03/21/2019 Pulmonary HTN (HCC) TIA (transient ischemic attack) left leg motion movement and slurred speech PAST SURGICAL HISTORY Procedure Laterality Date CC CORONARY STENT 03/28/2019 LAD prox stent , RCA nondominant bifurcating severe disease small medical rx , [facility] -No restenosis in stent lad mild disease 06/14/23 POST-CATARACT LASER SURGERY Bilateral REMV CATARACT EXTRACAP,INSERT LENS Bilateral 2015 [facility] TOTAL HIP REPLACEMENT Right TOTAL HIP REPLACEMENT Right SOCIAL HISTORY Social History Tobacco Use Smoking status: Never Smokeless tobacco: Never Vaping Use Vaping Use: Never used Substance Use Topics Alcohol use: Yes Comment: wine occas Drug use: No FAMILY HISTORY Problem Relation Age of Onset Heart Mother heart attack Hypertension Mother Cancer Mother stomach Cancer Sister breast non smoker half sister Heart Maternal Grandmother heart attack Diabetes No Family History Cataract No Family History Glaucoma No Family History Macular Degen No Family History ALLERGIES: ALLERGIES Allergen Reactions Ropinirole Other: See Comments Other reaction(s): nausea/dizziness, blurry vision Bcupted-Upv-Bva Red* Other: See Comments Sulfa (Sulfonamide * Rash MEDICATIONS: evolocumab (ALONA DEJESUS) 140 mg/mL pen injectorInject 140 mg subcutaneously as directed. Inject 1 pen subcu every 2 wksDisp: 6 EachRfl: 3 metoprolol succinate ER (TOPROL XL) 50 mg 24 hr tabletTake 0.5 tablet by mouth once daily.Disp: 90 tabletRfl: 3 losartan (COZAAR) 25 mg tabletTake 2 tablets by mouth two times a day.Disp: 180 tabletRfl: 3 levothyroxine (SYNTHROID) 50 mcg tabletTake 1 tablet by mouth daily at 6:00 am. Patient should start on December 12, 2023.Disp: 30 tabletRfl: 0 INV VITAMIN D3 5000 UNITS CAPSULE (IRB [id number])Take 5,000 Units by mouth once daily. For Investigational Drug Use Only. PI: Stevan Lozoya, PhD. Take one capsule by mouth daily for 3 months prior to surgery and 3 months after surgery.Disp: Rfl: cyanocobalamin (VITAMIN B-12) 1,000 mcg tabTake 1,000 mcg by mouth once daily.Disp: Rfl: biotin 1 mg capTake by mouth.Disp: Rfl: omega 1-cro-diz-fish oil 1,000 mg (250 mg-750 mg)/5 mL liqdTake by mouth.Disp: Rfl: Magnesium 200 mg tabTake 2 tablets by mouth once daily.Disp: 180 tabletRfl: 3 aspirin 81 mg chewable tabletAspirin Active 81 MG PO Daily March 27, 2019 11:00pmDisp: Rfl: amLODIPine (NORVASC) 10 mg tabletTake 1 tablet by mouth once daily.Disp: 90 tabletRfl: 3 isosorbide mononitrate ER (IMDUR) 30 mg 24 hr tabletTake 1 tablet by mouth once daily.Disp: 90 tabletRfl: 3 ezetimibe (ZETIA) 10 mg tabletTake 1 tablet by mouth once daily.Disp: 90 tabletRfl: 3 (Patient taking differently: Take 10 mg by mouth daily at bedtime.) ranolazine SR (RANEXA) 1,000 mg tab ER 12 hrTake 1 tablet by mouth twice daily.Disp: 180 tabletRfl: 3 nitroglycerin sublingual (NITROQUICK) 0.3 mg SL tabletDissolve 1 tablet under the tongue every 5 minutes as needed for chest pain.Disp: 25 tabletRfl: 3 cholecalciferol, vitamin D3, (VITAMIN D3 ORAL)Take by mouth.Disp: Rfl: Ascorbic Acid (VITAMIN C) 100 mg tabletTake 100 mg by mouth once daily.Disp: Rfl: acetaminophen 650 mg CR tabletTake 650 mg by mouth every 8 hours as (more content not included)... [facility] 02-08-2024 Miscellaneous Notes Called and spoke to patient's regarding message below. States for the past 1-2 weeks pt's ankles and legs have been swollen. She is wearing compression stockings and elevating as much as possible. States patient weighs herself daily but he is unsure if she has gained any weight. Notices wheezing when she breathes but does not seem much worse than baseline. Appointment scheduled for 02/11 at 11:30 with Radha Zaragoza CNP. Advised that should symptoms worsen, pt should be evaluated in the ER. Verbalizes understanding. Appreciative for phone call. Images from the original note were not included. Greg Pineda MD You; Avw Card Nurse Case Manager 23 minutes ago (3:02 PM) Does not seem from Dr Beaver's note that she was being treated for fluid overload/CHF May be she does not need it For now okay to be off Patient calling for refill on her furosemide. She is out of medication and leaving town today at 3:00 pm. Upon review of chart, medication was discontinued during 12/09 hospitalization with no clear reason why. Encounter will be forwarded to covering provider for review. documented in this encounter [facility] 02-08-2024 Miscellaneous Notes Pt called in to ask about compression stockings for upcoming trip, d/t slight edema in legs and feet. I gave pt education on low sodium diet, walking when possible, and compression stockings. Pt confirmed understanding, no further questions. documented in this encounter [facility] 02-07-2024 Note HNO ID: [id number] Author: NIKOLAS SOTO PT Service: ? Author Type: Physical Therapist Type: Progress Notes Filed: 02/07/2024 15:45 Note Text: Episode Visit Count: 4 Therapist That Will Accept/Oversee The Plan Of Care: Alison Klein PT Start of Care Date: 01/18/24 Onset Date: 10/14/23 Plan of Care Certification Date: 01/18/24 Next Certification Due Date: 03/14/24 REHABILITATION AND SPORTS THERAPY PHYSICAL THERAPY TREATMENT NOTE ASSESSMENT: Yani Gerard tolerated the session with increased symptoms and no issues. She demonstrated good tolerance to education on DIRECTOR OF D[employer]ITAL MARKETING regulation activities at this session. Patient willing to try all strategies at home and has been independent in home use of strategies. Next visit last scheduled PT visit. Patient likely ready for discharge. The patient will continue to benefit from ongoing skilled physical therapy to progress toward set goals. PLAN FOR NEXT VISIT: Neuromuscular re-education for diverted attention training, relaxation/meditation techniques. SUBJECTIVE: Patient reports she is on day 5 with no tremors or symptoms! Patient reports that she feels good about what wsa discussed last session. Patient is starting therapy on the of this month/ Patient reports that she has not gotten as much aerobic exercise in due to being very busy with guests over the weekend due to the eciplse. Pain: Pain Pain Level: 0 Post Treatment Pain Post Treatment Pain Level: No Change OBJECTIVE MEASURES WITH LEVEL OF FUNCTION: Posture / Alignment Posture: Forward head, Rounded shoulders Gait Gait: Independent Gait Distance (feet): 100 Gait Observation: WNL TREATMENT: Neuromuscular Re-Education: 1: FMD education: assistant infant teacher analogy for understanding role of PT and independence in exercises for home improvements 2: DIRECTOR OF D[employer] MARKETING education: sympathetic vs. parasympathetic NS. Education using analogy to explain differences between symapthetic and parasympathetic 3: DIRECT[employer] D[employer] MARKETING regulation activities. Discussion as followed: 4: -Performance of diaphragmatic breathing, inhale 2, exhale 4 5: -Chair yoga: did not complete in session, discussion on performance at home 6: -Aerobic exercise daily program 7: -5,4, 3, 2, 1 sensory meditation 8: -prayer as meditation 9: Used the anaology of a cup, with symptoms being cup overflow. DIRECT[employer] MARK[employer] regulation activities assist in draining up 10: POC education: set up next visit as last scheduled PT visit Skilled Intervention: Skilled judgment used to assess appropriate program for balance and coordination activity. Patient education as noted. Billing Neuromuscular Re-Education Treatment Minutes: 42 Skilled Treatment Time Minutes (timed and untimed codes): 42 Total Session Time (minutes): 42 Session Start Time : 1448 Session Stop Time : 1530 Nikolas Soto PT [facility] 02-07-2024 History of Present illness Narrative Episode Visit Count: 4 Therapist That Will Accept/Oversee The Plan Of Care: Alison Klein PT Start of Care Date: 01/18/24 Onset Date: 10/14/23 Plan of Care Certification Date: 01/18/24 Next Certification Due Date: 03/14/24 REHABILITATION AND SPORTS THERAPY PHYSICAL THERAPY TREATMENT NOTE ASSESSMENT: Yani Gerard tolerated the session with increased symptoms and no issues. She demonstrated good tolerance to education on [employer] regulation activities at this session. Patient willing to try all strategies at home and has been independent in home use of strategies. Next visit last scheduled PT visit. Patient likely ready for discharge. The patient will continue to benefit from ongoing skilled physical therapy to progress toward set goals. PLAN FOR NEXT VISIT: Neuromuscular re-education for diverted attention training, relaxation/meditation techniques. SUBJECTIVE: Patient reports she is on day 5 with no tremors or symptoms! Patient reports that she feels good about what ivory discussed last session. Patient is starting therapy on the of this month/ Patient reports that she has not gotten as much aerobic exercise in due to being very busy with guests over the weekend due to the eciplse. Pain: Pain Pain Level: 0 Post Treatment Pain Post Treatment Pain Level: No Change OBJECTIVE MEASURES WITH LEVEL OF FUNCTION: Posture / Alignment Posture: Forward head, Rounded shoulders Gait Gait: Independent Gait Distance (feet): 100 Gait Observation: WNL TREATMENT: Neuromuscular Re-Education: 1: FMD education: assistant infant teacher analogy for understanding role of PT and independence in exercises for home improvements 2: DIRECTOR OF D[employer] MARKETING education: sympathetic vs. parasympathetic NS. Education using analogy to explain differences between symapthetic and parasympathetic 3: DIRECT[employer] MARKETING regulation activities. Discussion as followed: 4: -Performance of diaphragmatic breathing, inhale 2, exhale 4 5: -Chair yoga: did not complete in session, discussion on performance at home 6: -Aerobic exercise daily program 7: -5,4, 3, 2, 1 sensory meditation 8: -prayer as meditation 9: Used the anaology of a cup, with symptoms being cup overflow. DIRECTOR OF [employer] MARKETING regulation activities assist in draining up 10: POC education: set up next visit as last scheduled PT visit Skilled Intervention: Skilled judgment used to assess appropriate program for balance and coordination activity. Patient education as noted. Billing Neuromuscular Re-Education Treatment Minutes: 42 Skilled Treatment Time Minutes (timed and untimed codes): 42 Total Session Time (minutes): 42 Session Start Time : 1448 Session Stop Time : 1530 Nikolas Soto PT documented in this encounter [facility] 02-02-2024 Note HNO ID: [id number] Author: NIKOLAS SOTO PT Service: ? Author Type: Physical Therapist Type: Progress Notes Filed: 02/02/2024 13:16 Note Text: Episode Visit Count: 3 Therapist That Will Accept/Oversee The Plan Of Care: Alison Klein PT Start of Care Date: 01/18/24 Onset Date: 10/14/23 Plan of Care Certification Date: 01/18/24 Next Certification Due Date: 03/14/24 REHABILITATION AND SPORTS THERAPY PHYSICAL THERAPY TREATMENT NOTE ASSESSMENT: Yani Gerard tolerated the session with increased symptoms and no issues. She demonstrated good tolerance to activities performed in session today. Patient benefited from L/R discrimination with increased difficulty discriminating R UE more then the L UE with images. Increased focus on nervous system regulation activities performed this session as well as education with patient and about nervous system regulation. Follow up recommended next session. The patient will continue to benefit from ongoing skilled physical therapy to progress toward set goals. PLAN FOR NEXT VISIT: Neuromuscular re-education for diverted attention training, relaxation/meditation techniques. SUBJECTIVE: Patient reports that she had 1 episode since last visit. Patient reports that she got up to go to the bathroom and her right hand started shaking. She reports it lasted for about 3.5 hours. She reports that she did attempt some of the strategies and reports that she feels as though they did help. Patient reports another episode lasting about an hour . She manipulated balls in her hand and it seemed to help. PAtient reports she was excited that she went 10 days without symptoms. Pain: Pain Pain Level: 0 Post Treatment Pain Post Treatment Pain Level: No Change OBJECTIVE MEASURES WITH LEVEL OF FUNCTION: Posture / Alignment Posture: Forward head, Rounded shoulders Gait Gait: Independent Gait Distance (feet): 100 Gait Observation: WNL Functional Performance Test Results 9 Hole Peg Test Right (seconds): 23.9 9 Hole Peg Test Left (seconds): 24.2 TREATMENT: Neuromuscular Re-Education: 1: L/R Discrimination: 2: -Round 1: basic 70% R, 70% L, increased time for R 3: -Round 2: Vanilla 40% right, 45% L 4: -Round 3: 70% each, increased time for R 5: Nervous system regulation education: how dysregularion in the nervous system can contribute to FMD symptoms 6: *aerobic exercise program for NS regulation x 15 minutes, 4x/week 7: Proprioception education: how weighting can assist with increased proprioceptive inputs which can in turn assist with nervous symstem regulation 8: -Weighted shoulder weights to increase proprioceptive inputs: good tolerance 9: 9 Hole Peg test: noted in chart 10: Education on benefits of psychology and psychology follow up for FMD Skilled Intervention: Skilled judgment used to assess appropriate program for balance and coordination activity. Patient education as noted. Billing Skilled Treatment Time Minutes (timed and untimed codes): 40 Total Session Time (minutes): 40 Session Start Time : 1202 Session Stop Time : 1242 Nikolas Soto PT [facility] 02-02-2024 History of Present illness Narrative Episode Visit Count: 3 Therapist That Will Accept/Oversee The Plan Of Care: Alison Klein PT Start of Care Date: 01/18/24 Onset Date: 10/14/23 Plan of Care Certification Date: 01/18/24 Next Certification Due Date: 03/14/24 REHABILITATION AND SPORTS THERAPY PHYSICAL THERAPY TREATMENT NOTE ASSESSMENT: Yani Gerard tolerated the session with increased symptoms and no issues. She demonstrated good tolerance to activities performed in session today. Patient benefited from L/R discrimination with increased difficulty discriminating R UE more then the L UE with images. Increased focus on nervous system regulation activities performed this session as well as education with patient and about nervous system regulation. Follow up recommended next session. The patient will continue to benefit from ongoing skilled physical therapy to progress toward set goals. PLAN FOR NEXT VISIT: Neuromuscular re-education for diverted attention training, relaxation/meditation techniques. SUBJECTIVE: Patient reports that she had 1 episode since last visit. Patient reports that she got up to go to the bathroom and her right hand started shaking. She reports it lasted for about 3.5 hours. She reports that she did attempt some of the strategies and reports that she feels as though they did help. Patient reports another episode lasting about an hour . She manipulated balls in her hand and it seemed to help. PAtient reports she was excited that she went 10 days without symptoms. Pain: Pain Pain Level: 0 Post Treatment Pain Post Treatment Pain Level: No Change OBJECTIVE MEASURES WITH LEVEL OF FUNCTION: Posture / Alignment Posture: Forward head, Rounded shoulders Gait Gait: Independent Gait Distance (feet): 100 Gait Observation: WNL Functional Performance Test Results 9 Hole Peg Test Right (seconds): 23.9 9 Hole Peg Test Left (seconds): 24.2 TREATMENT: Neuromuscular Re-Education: 1: L/R Discrimination: 2: -Round 1: basic 70% R, 70% L, increased time for R 3: -Round 2: Vanilla 40% right, 45% L 4: -Round 3: 70% each, increased time for R 5: Nervous system regulation education: how dysregularion in the nervous system can contribute to FMD symptoms 6: *aerobic exercise program for NS regulation x 15 minutes, 4x/week 7: Proprioception education: how weighting can assist with increased proprioceptive inputs which can in turn assist with nervous symstem regulation 8: -Weighted shoulder weights to increase proprioceptive inputs: good tolerance 9: 9 Hole Peg test: noted in chart 10: Education on benefits of psychology and psychology follow up for FMD Skilled Intervention: Skilled judgment used to assess appropriate program for balance and coordination activity. Patient education as noted. Billing Skilled Treatment Time Minutes (timed and untimed codes): 40 Total Session Time (minutes): 40 Session Start Time : 1202 Session Stop Time : 1242 Nikolas Soto PT documented in this encounter [facility] 01-30-2024 Instructions Nimco Dior, - 01/30/2024 10:35 AM EDT FND Treatment Strategies: The following is a start. We may also discover other strategies in therapy that work for you which aren't listed here. Upper/Lower Extremity Shaking/Tremors Try the following strategies to manage your symptoms: - Tapping: finger tapping or tapping one or both of your feet - Alternate/competing movement - Match the movement with your unaffected arm. - Once matched, try speeding the movements up, then gradually slowing down movements of both arms until you are still. - Change positions - Manipulate small objects in your other hand: Coins, buttons, stress ball, etc. - Use relaxation/meditation techniques - Grounding: close your eyes or focus on an object. -Concentrate on tactile cues (i.e. how firm your back, hips/thighs, feet feel on the floor, or how your toes feel in your shoes). - Deep breathing - Relaxation/meditation apps - Music - Add a cognitive task: - Counting: forward or backward by 5 s, 10 , 3 s - Naming similar things (i.e. states starting with same letter) - Recite familiar lists (i.e. months of the year - forward or backward, ABC s) Below are some resources that will be beneficial for better understanding FND and learning to manage your symptoms. Websites:? - https://www.neurosymptoms.org/? - Website was developed by a neurologist who is a leader in the field of FND.? - https://fndhope.org/? - Website was developed by a woman who had FND.? Because she didn't have many resources, she developed this for others.? ? - MyFND Angelika - Free angelika where patients can track and monitor their symptoms, review strategies for symptom management, and find resources and education on FND. - Insight Timer - Free angelika with various meditation and mindfulness programs documented in this encounter [facility] 01-30-2024 Note HNO ID: [id number] Author: NIMCO DIOR DO Service: ? Author Type: Physician Type: Progress Notes Filed: 01/30/2024 10:50 Note Text: [facility] - FOLLOW UP EVALUATION Jayden Burks [id number] [place] [address] Kyle Amin MD [address] [facility] [id number] Yani Gerard is a 83 year old right-handed female with a history of functional movement disorder. She is seen with her . Interval History Since Last Visit: She has had two PT sessions. She will not see psychology until March She went 10-days without movements - it lasted 3.5 hours which is on the shorter end of her typical events (3.5-12 hours). She is still not sure what triggers the events. She woke up to these events this time. The events seem to start with right hand movements. No falls nor injuries. 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 She needs to use a cane The patient denies any recent illness or infections. The patient denies any hospitalization since the last office visit. The patient denies any changes to their medical history or new diagnoses. The patient denies any surgery/procedure since their last visit. The patient denies any headache, chest pain, palpitations, shortness of breath or abdominal pain. The patient denies any seizures, numbness/tingling, lightheadedness or vertiginous symptoms. The patient denies any recent suicidal ideation or attempts to harm themselves or others. The patient denies any new pain. Movement Disorders Medications Schedule: NONE Allergies: ALLERGIES Allergen Reactions Ropinirole Other: See Comments Other reaction(s): nausea/dizziness, blurry vision Rejgacu-Ape-Pvu Red* Other: See Comments Sulfa (Sulfonamide * Rash Current Medications: Current Outpatient Medications Medication Sig metoprolol succinate ER (TOPROL XL) 50 mg 24 hr tablet Take 0.5 tablet by mouth once daily. losartan (COZAAR) 25 mg tablet Take 2 tablets by mouth two times a day. evolocumab (REPATHA SURECLICK) 140 mg/mL pen injector Inject 140 mg subcutaneously as directed. Inject 1 pen subcu every 2 wks INV VITAMIN D3 5000 UNITS CAPSULE (IRB [id number]) Take 5,000 Units by mouth once daily. For Investigational Drug Use Only. PI: Stevan Lozoya, PhD. Take one capsule by mouth daily for 3 months prior to surgery and 3 months after surgery. cyanocobalamin (VITAMIN B-12) 1,000 mcg tab Take 1,000 mcg by mouth once daily. biotin 1 mg cap Take by mouth. omega 8-lfu-reh-fish oil 1,000 mg (250 mg-750 mg)/5 mL liqd Take by mouth. clopidogrel (PLAVIX) 75 mg tablet Take 75 mg by mouth once daily. Magnesium 200 mg tab Take 2 tablets by mouth once daily. aspirin 81 mg chewable tablet Aspirin Active 81 MG PO Daily March 27, 2019 11:00pm amLODIPine (NORVASC) 10 mg tablet Take 1 tablet by mouth once daily. isosorbide mononitrate ER (IMDUR) 30 mg 24 hr tablet Take 1 tablet by mouth once daily. ezetimibe (ZETIA) 10 mg tablet Take 1 tablet by mouth once daily. (Patient taking differently: Take 10 mg by mouth daily at bedtime.) ranolazine SR (RANEXA) 1,000 mg tab ER 12 hr Take 1 tablet by mouth twice daily. nitroglycerin sublingual (NITROQUICK) 0.3 mg SL tablet Dissolve 1 tablet under the tongue every 5 minutes as needed for chest pain. tfzltxwlcjz-tfhmyehob-chdeoomi (TRELEGY ELLIPTA) 100-62.5-25 mcg inhalation powder Inhale 1 Puff as instructed as needed. cholecalciferol, vitamin D3, (VITAMIN D3 ORAL) Take by mouth. Ascorbic Acid (VITAMIN C) 100 mg tablet Take 100 mg by mouth once daily. acetaminophen 650 mg CR tablet Take 650 mg by mouth every 8 hours as needed. pramipexole (MIRAPEX) 0.5 mg tablet Take 0.25 mg by mouth two times a day. levothyroxine (SYNTHROID) 50 mcg tablet Take 1 tablet by mouth daily at 6:00 am. Patient should start on December 12, 2023. Current Facility-Administered Medications Medication Dose Route Frequency perflutren lipid microspheres 1.3 mL in NaCl (PF) 0.9% 10 mL injection (DEFINITY) INTRAVENOUS DIRECTED PRN sodium chloride 0.9 % (flush) 10 mL (BD POSIFLUSH) 10 mL INTRAVENOUS DIRECTED PRN Objective: Vital Signs: BP 143/110 (BP Site: Right Arm, BP Position: Sitting, BP Cuff Size: Regular Adult) Pulse 60 Ht 154.9 cm (5' 1 ) Wt 70.3 kg (155 lb) SpO2 94% BMI 29.29 kg/m? General Medical Examination: General Description of Patient: Well appearing, comfortable Head:normocephalic, atraumatic Neck:No bruits, full range of movement, supple Cardiac: Regular rate and rhythm Extremities: No leg edema, pulses intact, no rash or venous stasis changes. Neurological Exam Mental Status Awake and alert. Recent and remote memory are intact. Speech is normal. Language is fluent with no aphasia. Attention and concentration are normal. Fund of knowledge is appropriate for level of education. Cranial Nerves CN II to XII reported as normal . Motor No fasciculations prese (more content not included)... [facility] 01-30-2024 History of Present illness Narrative [facility] - FOLLOW UP EVALUATION Jayden Burks [id number] [place] [address] Kyle Amin MD [address] [facility] [address] Yani Gerrad is a 83 year old right-handed female with a history of functional movement disorder. She is seen with her . Interval History Since Last Visit: She has had two PT sessions. She will not see psychology until March She went 10-days without movements - it lasted 3.5 hours which is on the shorter end of her typical events (3.5-12 hours). She is still not sure what triggers the events. She woke up to these events this time. The events seem to start with right hand movements. No falls nor injuries. 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 She needs to use a cane The patient denies any recent illness or infections. The patient denies any hospitalization since the last office visit. The patient denies any changes to their medical history or new diagnoses. The patient denies any surgery/procedure since their last visit. The patient denies any headache, chest pain, palpitations, shortness of breath or abdominal pain. The patient denies any seizures, numbness/tingling, lightheadedness or vertiginous symptoms. The patient denies any recent suicidal ideation or attempts to harm themselves or others. The patient denies any new pain. Movement Disorders Medications Schedule: NONE Allergies: ALLERGIES Allergen Reactions Ropinirole Other: See Comments Other reaction(s): nausea/dizziness, blurry vision Rqnavay-Ysg-Nmh Red* Other: See Comments Sulfa (Sulfonamide * Rash Current Medications: Current Outpatient Medications Medication Sig metoprolol succinate ER (TOPROL XL) 50 mg 24 hr tablet Take 0.5 tablet by mouth once daily. losartan (COZAAR) 25 mg tablet Take 2 tablets by mouth two times a day. evolocumab (REPATHJyoti DEJESUS) 140 mg/mL pen injector Inject 140 mg subcutaneously as directed. Inject 1 pen subcu every 2 wks INV VITAMIN D3 5000 UNITS CAPSULE (IRB [id number]) Take 5,000 Units by mouth once daily. For Investigational Drug Use Only. PI: Stevan Lozoya, PhD. Take one capsule by mouth daily for 3 months prior to surgery and 3 months after surgery. cyanocobalamin (VITAMIN B-12) 1,000 mcg tab Take 1,000 mcg by mouth once daily. biotin 1 mg cap Take by mouth. omega 4-aid-mmk-fish oil 1,000 mg (250 mg-750 mg)/5 mL liqd Take by mouth. clopidogrel (PLAVIX) 75 mg tablet Take 75 mg by mouth once daily. Magnesium 200 mg tab Take 2 tablets by mouth once daily. aspirin 81 mg chewable tablet Aspirin Active 81 MG PO Daily March 27, 2019 11:00pm amLODIPine (NORVASC) 10 mg tablet Take 1 tablet by mouth once daily. isosorbide mononitrate ER (IMDUR) 30 mg 24 hr tablet Take 1 tablet by mouth once daily. ezetimibe (ZETIA) 10 mg tablet Take 1 tablet by mouth once daily. (Patient taking differently: Take 10 mg by mouth daily at bedtime.) ranolazine SR (RANEXA) 1,000 mg tab ER 12 hr Take 1 tablet by mouth twice daily. nitroglycerin sublingual (NITROQUICK) 0.3 mg SL tablet Dissolve 1 tablet under the tongue every 5 minutes as needed for chest pain. ycvqjilseaw-ywbrmctjk-ovkdmred (TRELEGY ELLIPTA) 100-62.5-25 mcg inhalation powder Inhale 1 Puff as instructed as needed. cholecalciferol, vitamin D3, (VITAMIN D3 ORAL) Take by mouth. Ascorbic Acid (VITAMIN C) 100 mg tablet Take 100 mg by mouth once daily. acetaminophen 650 mg CR tablet Take 650 mg by mouth every 8 hours as needed. pramipexole (MIRAPEX) 0.5 mg tablet Take 0.25 mg by mouth two times a day. levothyroxine (SYNTHROID) 50 mcg tablet Take 1 tablet by mouth daily at 6:00 am. Patient should start on December 12, 2023. Current Facility-Administered Medications Medication Dose Route Frequency perflutren lipid microspheres 1.3 mL in NaCl (PF) 0.9% 10 mL injection (DEFINITY) INTRAVENOUS DIRECTED PRN sodium chloride 0.9 % (flush) 10 mL (BD POSIFLUSH) 10 mL INTRAVENOUS DIRECTED PRN Objective: Vital Signs: BP 143/110 (BP Site: Right Arm, BP Position: Sitting, BP Cuff Size: Regular Adult) Pulse 60 Ht 154.9 cm (5' 1 ) Wt 70.3 kg (155 lb) SpO2 94% BMI 29.29 kg/m General Medical Examination: General Description of Patient: Well appearing, comfortable Head:normocephalic, atraumatic Neck:No bruits, full range of movement, supple Cardiac: Regular rate and rhythm Extremities: No leg edema, pulses intact, no rash or venous stasis changes. Neurological Exam Mental Status Awake and alert. Recent and remote memory are intact. Speech is normal. Language is fluent with no aphasia. Attention and concentration are normal. Fund of knowledge is appropriate for level of education. Cranial Nerves CN II to XII reported as normal . Motor No fasciculations present. Strength is 5/5 throughout all four extremities. No focal weakness appreciated on examination. Sensory There is no evidence for a stocking-glove gradient in bilateral extremities. Dual simultaneous stimulation is intact. Reflexes Right Left Brachioradialis 2+ 2+ Biceps 2+ 2+ Triceps 2+ 2+ Patellar 2+ 2+ Right pathological reflexes: Giorgio's absent. Left pathological reflexes: Giorgio's absent. Coordination Right: Bbkuve-bv-fckh normal. Rapid alternating movement normal.Left: Eqrcwd-wq-hcet normal. Rapid alternating movement normal. Gait Casual gait: Normal stance. Reduced stride length. Normal gait. Reduced right arm swing. Reduced left arm swing. The patient did not require assistive devices to ambulate. Movement Disorders There is no rest tremor. The patient has no action tremor. The patient has no postural tremor. The patient does not have a vocal or lingual tremor. An orthostatic tremor is not noted bilaterally. There is no rigidity on examination. There is no bradykinesia on examination. There is no reptilian stare. Hypophonia was not present. Assessment and Plan: Ms. 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 Medical decision making was high complexity due to patient's, multiple symptoms, advancing disease The total time spent on the patient care was 20 minutes with greater than 50% of the time spent on counseling regarding preparing to see the patient, vlun-te-wfou patient care, completing clinical documentation, obtaining and/or reviewing separately obtained history, performing a medically appropriate examination, counseling and educating the patient/family/caregiver, ordering medications, tests, or procedures, and communicating results to the patient/family/caregiver. I tried to answer all of the patient's questions and concerns during this visit. Nimco Dior DO Senior Staff Neurologist - [facility] documented in this encounter [facility] 01-24-2024 Note HNO ID: [id number] Author: NIKOLAS SOTO PT Service: ? Author Type: Physical Therapist Type: Progress Notes Filed: 01/24/2024 13:50 Note Text: Episode Visit Count: 2 Therapist That Will Accept/Oversee The Plan Of Care: Alison Klein PT Start of Care Date: 01/18/24 Onset Date: 10/14/23 Plan of Care Certification Date: 01/18/24 Next Certification Due Date: 03/14/24 Patient Identified by Name and Date of : Yes REHABILITATION AND SPORTS THERAPY PHYSICAL THERAPY TREATMENT NOTE ASSESSMENT: Yani Gerard tolerated the session with increased symptoms and no issues. She demonstrated good tolerance to education performed this session. Patient without symptoms this session and has not had any symptoms in 5 days. Education on diverted attention techniques to trial at home. Further follow up recommended. The patient will continue to benefit from ongoing skilled physical therapy to progress toward set goals. PLAN FOR NEXT VISIT: Neuromuscular re-education for diverted attention training, relaxation/meditation techniques. SUBJECTIVE: Patient reports that she is feeling pretty good. Patient reports that she is on day with no problems. Patient reports normally her mouth gets dry, she gets nauseated and hands start shaking. She reports she was being worked up for TIa/seizures, but then diagnosed with FMD. Pain: Pain Pain Level: 0 OBJECTIVE MEASURES WITH LEVEL OF FUNCTION: Posture / Alignment Posture: Forward head, Rounded shoulders Vitals Pulse: (!) 59 SpO2: 98 % TREATMENT: Neuromuscular Re-Education: 1: FMD education: etiology, symptomology and treatmetn 2: Discussion on use of Diverted Attention strategies and their purpose. Use of the traffic jam analogy for how and why diverted attention strategies work 3: Aerobic exercise: education on benefits of aerobic exercise for symptom management. recommended aerobic exercise program at home x 10 minutes per day 4: Hiking training analogy for FMD and neuroplasticity in order to increase patient understanding of diagnosis 5: Diverted attention training as followed: includes motor, sensory and cognitive tasking 6: -Sensory cueing: hand on thigh 7: -Motor: finger opposition, tapping patterns 8: -cogntive: name and animal for every letter of the alphabet 9: DIRECTOR [employer]ING education: sympathetic vs. parasympathetic NS and regulation 10: *diaphragmatic breathing inhale 2, exhale 4 Skilled Intervention: Skilled judgment used to assess appropriate program for balance and coordination activity. Patient education as noted. Billing Neuromuscular Re-Education Treatment Minutes: 45 Skilled Treatment Time Minutes (timed and untimed codes): 45 Total Session Time (minutes): 45 Session Start Time : 1249 Session Stop Time : 1334 Nikolas Soto PT [facility] 01-18-2024 Note HNO ID: [id number] Author: ALISON KLEIN, PT Service: ? Author Type: Physical Therapist Type: Progress Notes Filed: 01/23/2024 00:01 Note Text: Episode Visit Count: 1 Therapist That Will Accept/Oversee The Plan Of Care: Alison Klein PT Start of Care Date: 01/18/24 Onset Date: 10/14/23 Plan of Care Certification Date: 01/18/24 Next Certification Due Date: 03/14/24 Patient Identified by Name and Date of : Yes REHABILITATION AND SPORTS THERAPY PHYSICAL THERAPY EVALUATION PLAN OF CARE: Assessment: Yani Gerard presents with chief complaint of her mouth getting dry, nausea, head pressure (goes away after an hour), hands start shaking, and sometimes left leg will jump and then start shaking. Duration of most attacks seem to be between 5-8 hours. These interferes with walking, physical activities . She presents with impairments in balance, independence in exercise, overall function, stress management, symptom management, and functional performance testing indicates mild imbalance with fall risk. Patient did not complete the PROMIS? (Patient Reported Outcome Measures Information System). Prognosis for therapy is Fair due to: clinical presentation, multiple co- morbidities . Recommend PT for diverted attention training and relaxation/meditation training. She will benefit from skilled therapy services to meet the goals established for this plan of care as noted below. Goals for Episode of Care: created on 01/18/24 through 03/14/24 Patient will be able to tolerate functional activities for up to 2-4 hours without increased symptoms . Patient will ambulate 1,000 feet without assistive device independently . Patient demonstrates independent and proper use of assistive device to allow for improved walking quality and safety therefore reducing the risk of falls. Improve score on Timed Up and Go to <12 sec to decrease risk of falls . Improve score on Timed Up and Go COG (TUG COG) to < 10% difference from Timed Up and Go. Improve score on Timed Up and Go Manual to < 10% difference from Timed Up and Go. Patient will independently demonstrate 3-4 diverted attention techniques for symptom management. Patient Goals: Find out what to do to manage symptoms. Planned Interventions, Frequency, and Duration: Current Frequency: 1x/week Duration: 8 weeks Total Number of Visits Planned: 8 Planned Treatment Interventions: Therapeutic exercise (07490), Neuromuscular re-education (11934), Therapeutic activities (34803), Self-long term management (94361), Gait Training (07622), Patient/Family/Caregiver Education PLAN FOR NEXT VISIT: Neuromuscular re-education for diverted attention training, relaxation/meditation techniques. Patient demonstrates good understanding of plan of care and treatment. The above goals and plan of care were discussed and agreed upon by patient/family. SUBJECTIVE: FND Symptom onset and progression: Traveling, felt a little shaky. When getting out of the car, left leg shook so bad she couldn't walk. Had to be helped into the house. Hands started to shake and she started stuttering. Went to ER; thought to have a TIA and was admitted. Symptoms improved in about 24 hours. A week later the same thing happened and she went to [facility] and was admitted. This has happened 4 times. Typical recovery is hours. 5th time: went to [facility] and was admitted for possible seizures. List of current symptoms: Intermittent. Mouth gets dry, nausea, head pressure (goes away after an hour), hands start shaking, and sometimes left leg will jump and then start shaking. Duration of most attacks seem to be between 5-8 hours. May happen upon waking (in AM or even during the night). Triggers: Unknown at this time. Relieving factors: Sit and be still. May lie down. - When grandkids cuddle with her. Patient Goals: Find out what to do to manage symptoms. Functional Limitations: walking, physical activities Prior Level of Function: Independent without limitations Relevant History Past Relevant Medical Conditions: Cancer, Hypertension, Thyroid Disease, Falls Intake Information: Prescription present Previous Treatment: (Medical work up. No therapy.) Falls Interview: Fall with injury in the last year (tripped and sustained a concussion without LOC.) Falls Intervention: Falls Specific Functional Performance Tests Pain: Pain Pain Level: 0 Post Treatment Pain Post Treatment Pain Level: No Change PROMIS Scales T-scores: mean of general population = 50. 5 points is clinically meaningfully difference Percentiles provide an indication of how the patient's score ranks in relation to the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 CONTACT #: [phone] History of Past illness Narrative* Problem Noted Date Diagnosed Date Resolved Date Nonintractable episodic headache 12/10/2023 12/11/2023 Stroke-like symptoms 12/09/2023 12/09/2023 024 Lumbar back pain with radicu lopathy affecting left lower extremity 03/21/2019 05/20/2021 Benign paroxysmal positional vertigo of right ear 10/03/2018 05/20/2021 Dizziness 09/24/2018 05/20/2021 documented as of this encounter (statuses as of 12/12/2023) [facility]-2024 History of Past illness Narrative* Problem Noted Date Diagnosed Date Resolved Date Nonintractable episodic headache 12/10/2023 12/11/2023 Stroke-like symptoms 12/09/2023 12/09/2023 024 Lumbar back pain with radicu lopathy affecting left lower extremity 03/21/2019 05/20/2021 Benign paroxysmal positional vertigo of right ear 10/03/2018 05/20/2021 Dizziness 09/24/2018 05/20/2021 documented as of this encounter (statuses as of 12/12/2023) [facility] History of Past illness Narrative* Problem Noted Date Diagnosed Date Resolved Date Nonintractable episodic headache 12/10/2023 12/11/2023 Stroke-like symptoms 12/09/2023 12/09/2023 024 Lumbar back pain with radicu lopathy affecting left lower extremity 03/21/2019 05/20/2021 Benign paroxysmal positional vertigo of right ear 10/03/2018 05/20/2021 Dizziness 09/24/2018 05/20/2021 documented as of this encounter (statuses as of 12/12/2023) [facility] History of Past illness Narrative* Problem Noted Date Diagnosed Date Resolved Date Nonintractable episodic headache 12/10/2023 12/11/2023 Stroke-like symptoms 12/09/2023 12/09/2023 024 Lumbar back pain with radicu lopathy affecting left lower extremity 03/21/2019 05/20/2021 Benign paroxysmal positional vertigo of right ear 10/03/2018 05/20/2021 Dizziness 09/24/2018 05/20/2021 documented as of this encounter (statuses as of 12/13/2023) [facility] History of Past illness Narrative* Problem Noted Date Diagnosed Date Resolved Date Nonintractable episodic headache 12/10/2023 12/11/2023 Stroke-like symptoms 12/09/2023 12/09/2023 024 Lumbar back pain with radicu lopathy affecting left lower extremity 03/21/2019 05/20/2021 Benign paroxysmal positional vertigo of right ear 10/03/2018 05/20/2021 Dizziness 09/24/2018 05/20/2021 documented as of this encounter (statuses as of 12/19/2023) [facility] History of Past illness Narrative* Problem Noted Date Diagnosed Date Resolved Date Nonintractable episodic headache 12/10/2023 12/11/2023 Stroke-like symptoms 12/09/2023 12/09/2023 024 Lumbar back pain with radicu lopathy affecting left lower extremity 03/21/2019 05/20/2021 Benign paroxysmal positional vertigo of right ear 10/03/2018 05/20/2021 Dizziness 09/24/2018 05/20/2021 documented as of this encounter (statuses as of 12/29/2023) [facility]-10[facility]2024 NoteHNO ID: [id number] Author: ATUL ROSENBAUM PA-C Service: General Internal Medicine Author Type: Physician Linoleum Layer Helper Type: Plan of Care Filed: 12/09/2023 16:22 Note Text: ADMISSION PLAN OF CARE NOTE SERVICE DATE: 12/09/2023 SERVICE TIME: 2:30PM CHIEF COMPLAINT: Stroke-like symptoms. HPI: This is a 83 year old female with a PMH of coronary disease status post PCI in 02/2019, hyperlipidemia, hypertension, TIA who presents with stroke-like symptoms. , daughter and son at bedside. Patient reports headache, nausea (resolved), double vision, LLE weakness, LUE tremors, and stuttering speech since 1:15PM today. Denies diaphoresis, blurred vision, facial droop. She was seen by [facility] ED yesterday due to having a similar event - started on Levetiracetam 500 mg BID for ?seizure and Macrobid for UTI. Family states this is the 6th episode since 2022. Patient also endorses chills, shortness of breath, and diarrhea. Denies fever, nasal congestion, rhinorrhea, sore throat, chest pain, palpitation, wheezing, abdominal pain, vomiting. Patient was placed on a 30-day Holter on 11/30/2023. Established with Dr. Burks, Neurology; Dr. Ornelas, Endocvascular Neurology; and Dr. Harkins, Cardiology outpatient. ED Course: -Labs: CBC, PTT WNL. CMP WNL except for Na 135. INR <0.9. High sensitivity troponin 48. -CT brain attack: No acute intracranial abnormality. -CTA head/neck: No evidence of acute intracranial hemorrhage. No hemodynamically significant stenosis of the extracranial carotid arteries. Moderate stenosis at the origin of the bilateral cervical vertebral arteries. -EKG: NSR without acute changes. -Interventions: None. DEZ Gerard. Reviewed past medical history, family history, social history, medications and allergies. FOCUSED PHYSICAL EXAM: BP 142/66 Pulse 63 Temp 97.3 Resp 16 Ht 5' 1 (1.55m) Wt 160 lb 15 oz (73.0kg) SpO2 94% BMI 30.42 kg/(m2). GENERAL: No acute distress. Alert and cooperative. + Frail appearance. SKIN: Skin color and turgor grossly normal. No rashes or lesions observed. HEAD: Normocephalic, atraumatic. EYES: No anicteric sclera. PERRLA. EOMs intact. NECK: No JVD observed. No LAD. Supple. LUNGS: Normal respiratory effort. Lungs clear to auscultation. No wheezing, rhonchi or rales. No accessory muscle use. CARDIAC: Normal S1 and S2. No murmurs, rubs or gallops. ABDOMEN: Abdomen soft, non-distended, and non-tender. Normal BS. EXTREMITIES: Extremities normal. No gross deformities. No unilateral edema or clinical signs of DVT. NEURO: Alert AND oriented x 3 (oriented to name, , date and location). Face symmetric (CN VII intact). + Mild-mod slurred speech. + BUE tremors noted. + LUE and LLE drift noted. + LUE and LLE strength decreased. Point to point intact. PULSES: 2+ DP and radial bilaterally. ASSESSMENT/PLAN Active Problems: Patient Active Hospital Problem List: 1. Stroke-like symptoms 2. Stenosis of both vertebral arteries POA: Yes This is a 83 year old female with a PMH of coronary disease status post PCI in 02/2019, hyperlipidemia, hypertension, TIA who presents with stroke-like symptoms. NIH score of 4 in the ED. Afebrile, mild HTN, 97% on RA. AANDOx3, slurred speech, BUE tremors, LUE and LLE weakness noted on exam. Labs unremarkable. CT brain attack: No acute intracranial abnormality. CTA head/neck: No evidence of acute intracranial hemorrhage. No hemodynamically significant stenosis of the extracranial carotid arteries. Moderate stenosis at the origin of the bilateral cervical vertebral arteries. Plan: -Telemetry. -Neurochecks q4h x 24h. -Permissive HTN for 24h, do not treat unless BP unless >220/110 mmHg. Hold antihypertensives for 24 hours. -Lipid panel, HgbA1c, TSH ordered; follow-up results. If HgbA1c elevated, consult DM education. -Continue ELECTRICAL LINE SPLICER Levetiracetam 50 mg BID, Clopidogrel 75 mg daily, ASA 81 mg daily. -NPO pending speech and swallow. -Fall, aspiration, seizure precautions. -Stroke care path and education. -MRI brain without contrast ordered; follow-up results. -TTE with bubble study to look for intracardiac shunt. -PT/OT evaluation. -Speech evaluation. -BEM EEG ordered; follow-up results. -Neurology consulted; awaiting recommendations. 3. UTI -Diagnosed with UTI and discharged on Macrobid yesterday. Plan: -UA and urine culture ordered; follow-up results. -Continue Macrobid. 4. Chronic conditions -Hypothyroidism: Continue ELECTRICAL LINE SPLICER Levothyroxine 50 mcg daily. HANDP to follow by attending. I spent a total of >50 minutes on the date of the service which included preparing to see the patient, sjqf-na-sjvk patient care, completing clinical documentation, obtaining and/or reviewing separately obtained history, performing a medically appropriate examination, counseling and educating the patient/family/caregiver, ordering medications, tests, or proc (more content not included)...[facility]'[id number] NoteHNO ID: [id number] Author: STEVEN PEDERSEN MD Service: ? Author Type: Physician Type: Progress Notes Filed: 12/09/2023 14:28 Note Text: TELESTROKE DOCUMENTATION Name: Yani Gerard : 1940 Referring Site: [place] Referring Provider: Dr Root Last Known Well (Date/Time): 12/09/23 1240 Neurologist Callback (Date/Time): 12/09/23 1340 Chief Complaint: Tremulousness in all extremities; stuttering speech; generalized weakness HPI: 83 year old female,83-year-old female--history of hypertension hyperlipidemia coronary artery disease-----has had stereotypical spells lasting up to 24 hours of tremulousness in her extremities and stuttering speech difficulty walking----the first episode was in October 14, 2023 --- evaluations in the past with MRI brain in September 2023-despite symptoms lasting for hours did not show any acute infarcts; CTA was notable for atherosclerotic changes within the basilar artery. Has been seen by Dr. uBrks and Dr. ornelas (neurologist ; endovascular neurologist) --has been advised to continue aspirin and Plavix with optimal risk factor management per atherosclerosis. No prior history of seizures BP: 143/66 NIHSS Telestroke Type - Patient location (ED or Inpatient): ED - Video Neurologist Performed Total Score: 1 Arrival Date Telestroke Site: 12/09/23 NIHSS Performed Date: 12/09/23 NIHSS Performed Time: 1400 LOC: 0 LOC Questions: 0 (Stuttering speech but able to be oriented to place person and time) LOC Commands: 0 Best Gaze: 0 (No gaze palsy) Visual: 0 Facial Palsy: 0 Motor Left Arm: 0 (Tremulousness on bilateral upper extremities) Motor Right Arm: 0 Motor Left Le Motor Right Le Limb Ataxia: 1 (Related to tremulousness) Sensory: 0 Best Language: 0 Dysarthria: 0 (Stuttering speech) Extinction and Inattention: 0 Labs Glucose: [address] Imaging reviewed, NO acute infarct/hemorrhage seen CTA Reviewed, Other (Specify) CTA Imaging Reviewed (Specify): Basilar artery atherosclerosis-- similar to imaging in Sep 2023-- moderate to severe proximal basilar and distal left V4 segment stenoses. The right vertebral artery is widely patent. Summary Stroke diagnosis uncertain - the risks of IV Thrombolysis outweigh the benefits of treatment repeat MRI brain ; EEG monitoring -- neurology eval ; assess for Stressors ; no microhemoorhages or acute infarct on MRI brain in 09/2024 . Continue ASA 81 mg daily Plavix 75 mg daily ; neurology ar FV to follow Potential Candidate for Endovascular Therapy: No - Negative for evidence of large vessel occlusion Disposition/Billing (Physician is not in the same physical location as the patient) The patient will remain at the referring institution for further evaluation and management I personally completed this evaluation as a staff physician: Yes Video: Minutes spent directly evaluating the patient via teleconferencing, reviewing pertinent diagnostic data, and coordinating care : 45 Video: Case complexity: Complex More than 50 percent of the encounter was spent on coordinating care of the patient during a telestroke. Thank you for contacting the [facility]. I appreciate the opportunity for allowing me to participate in Yani Gerard's care. Please feel free to contact me and/or the [facility] at any time if you have any further questions or need additional assistance. Steven Pedersen MD December 09, 2023 2:27 [facility]02-10-2024 History of Present illness Narrative* Steven Pedersen MD - 12/09/2023 2:27 PM EST TELESTROKE DOCUMENTATION Name: Yani Gerard : 1940 Referring Site: [place] Referring Provider: Dr Root Last Known Well (Date/Time): 12/09/23 1240 Neurologist Callback (Date/Time): 12/09/23 1340 Chief Complaint: Tremulousness in all extremities; stuttering speech; generalized weakness HPI: 83 year old female,83-year-old female--history of hypertension hyperlipidemia coronary artery disease-----has had stereotypical spells lasting up to 24 hours of tremulousness in her extremities and stuttering speech difficulty walking----the first episode was in October 14, 2023 --- evaluations in the past with MRI brain in September 2023-despite symptoms lasting for hours did not show any acute infarcts; CTA was notable for atherosclerotic changes within the basilar artery. Has been seen by Dr. Burks and Dr. ornelas (neurologist ; endovascular neurologist) --has been advised to continue aspirin and Plavix with optimal risk factor management per atherosclerosis. No prior history of seizures BP: 143/66 NIHSS Telestroke Type - Patient location (ED or Inpatient): ED - Video Neurologist Performed Total Score: 1 Arrival Date Telestroke Site: 12/09/23 NIHSS Performed Date: 12/09/23 NIHSS Performed Time: 1400 LOC: 0 LOC Questions: 0 (Stuttering speech but able to be oriented to place person and time) LOC Commands: 0 Best Gaze: 0 (No gaze palsy) Visual: 0 Facial Palsy: 0 Motor Left Arm: 0 (Tremulousness on bilateral upper extremities) Motor Right Arm: 0 Motor Left Le Motor Right Le Limb Ataxia: 1 (Related to tremulousness) Sensory: 0 Best Language: 0 Dysarthria: 0 (Stuttering speech) Extinction and Inattention: 0 Labs Glucose: [address] Imaging reviewed, NO acute infarct/hemorrhage seen CTA Reviewed, Other (Specify) CTA Imaging Reviewed (Specify): Basilar artery atherosclerosis-- similar to imaging in Sep 2023-- moderate to severe proximal basilar and distal left V4 segment stenoses. The right vertebral artery is widely patent. Summary Stroke diagnosis uncertain - the risks of IV Thrombolysis outweigh the benefits of treatment repeat MRI brain ; EEG monitoring -- neurology eval ; assess for Stressors ; no microhemoorhages oracute infarct on MRI brain in 09/2024 . Continue ASA 81 mg daily Plavix 75 mg daily ; neurology ar FV to follow Potential Candidate for Endovascular Therapy: No - Negative for evidence of large vessel occlusion Disposition/Billing (Physician is not in the same physical location as the patient) The patient will remain at the referring institution for further evaluation and management I personally completed this evaluation as a staff physician: Yes Video: Minutes spent directly evaluating the patient via teleconferencing, reviewing pertinent diagnostic data, and coordinating care : 45 Video: Case complexity: Complex More than 50 percent of the encounter was spent on coordinating care of the patient during a telestroke. Thank you for contacting the [facility]. I appreciate the opportunity for allowing me to participate in Yani Gerard's care. Please feel free to contact me and/or the [facility] at any time if you have any further questions or need additional assistance. Steven Pedersen MD December 09, 2023 2:27 PM documented in [facility] encounterWay[facility]02-[facility]24 Miscellaneous Notes* Telephone Encounter - Ras Owens RN - 11/30/2023 12:[address] Ornelas made aware via EMR * Telephone Encounter - Akash Jo Kanika - 11/30/2023 10:51 AM EST CV PHONE Name of caller : Mr. Gerard Relationship to patient : Spouse If not self Will need patient permission to release results or disclose health information with called documented in . Patient identified by Name and Date of . ( Yani Gerard, 1940). Yes Number to return call [phone] Reason for Call: Patient Update: Patient's wanted you to know patient was transported to [facility] in the ER with the same symptoms she saw Dr. Ornelas for. Patient had an episode. Thank you calling [facility] [place]. You will receive a return call within 48hours ( or 2 business days if close to the weekend). If you feel that this is an urgent issue and needs immediate attention, it is recommended that you contact your primary care provider office or proceed to your nearest Urgent Care Center of Emergency Room ED for evaluation/treatment. documented in this encounterWayne [facility]01-[facility]24 NoteHNO ID: [id number] Author: AGUSTÍN ORNELAS MD Service: ? Author Type: Physician Type: Progress Notes Filed: 11/27/2023 12:35 Note Text: [facility] Initial Outpatient Visit Yani Gerard [facility]#: [id number] Date of Service: 11/27/2023 Primary Care Provider: Kyle Amin MD [address] [facility] [address] The patient was referred by Jayden Burks MD for opinion regarding intracranial stenosis. I will provide a written report of my findings to the referring through letter, e communication, or epic. OUTPATIENT CONSULTATION Chief complaint: Intracranial stenosis History of present illness: Mrs. 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 The patient does not have a history of strokes or TIAs, but in mid September 2023 she experienced sudden onset left leg shaking, slurred speech and difficulty expressing herself. This lasted for about 24 hours. She also noted that both of her hands were shaking at times and she was stuttering in her speech. About a week later, she had a similar spell and she was switched from baby aspirin that she had been taking for years, to aspirin 325 mg/day. A few weeks later, in the second half of October 2023, her symptoms happened again, although in a milder form, and lasted only about 6-7 hours. Her left leg shaking at this time was already better after an hour. At this time, daily Plavix was added to her medication regimen. She has not had any recurrent symptoms since then. Her events have not been associated with low blood sugar, but her blood pressure was not routinely checked at the time of her events to detect hypotension. The patient has a history of cardiac stenting and heart attack. She used to be on Plavix, but it was discontinued about a year or 2 ago due to bruising. As of note, the patient developed diplopia on the right lateral gaze, and brain MRI showed no underlying lesion. Her vision was corrected with glasses. She walks with a cane at baseline. Hypertension Y Coronary Artery Disease Y Diabetes NA Obesity NA Dyslipidemia NA Tobacco Use (Please Update Smoking History) NA Stroke NA Intracranial Aneurysm NA Past Medical History: ACTIVE PROBLEM LIST Actinic Keratosis Other Specified Disease of Sebaceous Glands Htn (Hypertension) Hyperlipidemia Statin Myopathy Preoperative Cardiovascular Examination Cad (Coronary Artery Disease) Abnormality of Gait Clear Outcomes Study, PI: Eva Fischer MD Divergence Insufficiency Paroxysmal Supraventricular Tachycardia Unstable Angina (Hcc) PAST SURGICAL HISTORY Procedure Laterality Date CC CORONARY STENT 03/28/2019 LAD prox stent , RCA nondominant bifurcating severe disease small medical rx , [facility] -No restenosis in stent lad mild disease 06/14/23 POST-CATARACT LASER SURGERY Bilateral REMV CATARACT EXTRACAP,INSERT LENS Bilateral 2016 REVISE TOTAL HIP REPLACEMENT Right TOTAL HIP REPLACEMENT Right Allergies: Zetia [Ezetimibe], Gabapentin, Pramipexole, Ropinirole, Mwqowqj-Zsm-Gct Reductase Inhibitors, and Sulfa (Sulfonamide Antibiotics) Medications: Current Outpatient Medications Medication Sig clopidogrel (PLAVIX) 75 mg tablet Take 75 mg by mouth once daily. Magnesium 200 mg tab Take 2 tablets by mouth once daily. aspirin 81 mg chewable tablet Aspirin Active 81 MG PO Daily March 27, 2019 11:00pm evolocumab (REPATHA SYRINGE) 140 mg/mL Inject 140 mg subcutaneously every 2 weeks. evolocumab (REPATHA SURECLICK) 140 mg/mL pen injector Inject 140 mg subcutaneously as directed. Inject 1 pen subcu every 2 wks amLODIPine (NORVASC) 10 mg tablet Take 1 tablet by mouth once daily. isosorbide mononitrate ER (IMDUR) 30 mg 24 hr tablet Take 1 tablet by mouth once daily. metoprolol succinate ER (TOPROL XL) 50 mg 24 hr tablet Take 1 tablet by mouth once daily. ezetimibe (ZETIA) 10 mg tablet Take 1 tablet by mouth once daily. ranolazine SR (RANEXA) 1,000 mg tab ER 12 hr Take 1 tablet by mouth twice daily. nitroglycerin sublingual (NITROQUICK) 0.3 mg SL tablet Dissolve 1 tablet under the tongue every 5 minutes as needed for chest pain. olfvbjhhpjp-hthkgfpoc-ffndaqmb (TRELEGY ELLIPTA) 100-62.5-25 mcg inhalation powder Inhale 1 Puff as instructed. furosemide (LASIX) 20 mg tablet Take 1 tablet by mouth once daily. losartan (COZAAR) 25 mg tablet Take 2 tablets by mouth twice daily. cholecalciferol, vitamin D3, (VITAMIN D3 ORAL) Take by mouth. Ascorbic Acid (VITAMIN C) 100 mg tablet Take 100 mg by mouth once daily. acetaminophen 650 mg CR tablet Take 650 mg by mouth every 8 hours as needed. ibuprofen (MOTRIN) 800 mg tablet Take 800 mg by mouth every 6 hours as needed. pramipexole (MIRAPEX) 0.5 mg tablet Take 0.5 mg by mouth once daily. levothyroxine (SYNTHROID) 75 mcg tablet Take 1 tablet by mouth once daily. asp (more content not included)...[facility]'[id number] NoteHNO ID: [id number] Author: ?, ?, ? Service: ? Author Type: ? Type: Progress Notes Filed: 11/27/2023 12:35 Note Text:[facility]'[id number] History and physical note Author Aaron Rod [facility] November 15, 2023 4:57pm Note Date/Time November 15, 2023 2 :08pm [facility] [address] [place] [address] Hospitalist H&P Signed Patient: Yani Gerard MR#: [id number] : 1940 Acct:[id number] Age/Sex: 83 / F Adm Date: 4 Loc: Room: [address] [place] [address] Type: ADM INOo Attending Dr: Aaron Rod DO Copies to: Fran Georges DO, RES MD Aaron Juarez DO~ HPI DATE OF EXAMINATION: 11/15/23 CHIEF COMPLAINT: Slurred speech HISTORY OF PRESENT ILLNESS: Ms. Gerard is an 83-year-old female with a relevant past medical history of cerebellar CVA currently on full dose aspirin only, CAD, essential hypertension,dyslipidemia, history of WA, and hypothyroidism who presented to [facility] ED on 11/15/2023 via EMS due to slurred speech. Patient states she went to sleep earlier that night, and woke up unable to find specificwords. She might of had a little bit of facial drooping, but this was minimal. Getting further history from the patient's children in the room, she was unable to find specific words and had some Broca's aphasia. This was the only neurologic deficit that was changed that they were describing this morning. Last known well was about 2100 on 11/14/23. By the time they got to the emergency department, her speech was improving. Denies fever/chills, chest pain,shortness of breath, abd pain, N/V/D. In the emergency department, vital signs were unremarkable. Lab work was obtained and was largely unrevealing. EKG was obtained and demonstrated normal sinus rhythm without any evidence of acute ischemic or S-T changes. It did showsome nonspecific T wave abnormalities and some of the lateral leads, which was present on previous EKG. Imaging was obtained with a chest x-ray that was negative for acute pathology. CT of the head and CTA of the head/neck were alsoobtained that did not demonstrate any evidence of acute intracranial pathology. Patient will subsequently be admitted for further evaluation and management of TIA. Review of Systems Review of Systems All other systems reviewed & are negative unless noted below or in HPI Review of systems: Unless otherwise stated in the report or unable to obtain because of the patient's clinical or mental status as evidenced by the medical record, the patient's positive and negative responses for review of systems for constitutional, eyes, ENT, cardiovascular, respiratory, gastrointestinal, neurological, genitourinary, musculoskeletal and skin as well as related systemsto the presenting problem are either as stated in the HPI or were not pertinent or were negative for the systems and/or complaints related to the presenting medical problem. [facility] Medical History (Updated 11/15/23 @ 12:49 by Azar Wyatt DO) History of revision of total replacement of right hip joint CAD (coronary artery disease) Restless leg syndrome Heart attack Dyspnea Back pain Hypothyroidism Hypertension Hypercholesteremia Surgical History History of coronary angioplasty with insertion of stent 2 stents Hx of cardiac catheterization History of lumbar surgery History of hand surgery L. hand tendon repair for 5th finger History of hysterectomy Family History Father Suicide Grandparent Heart disease Mother Atrial fibrillation Grandparent Atrial fibrillation Daughter Irregular heart beat Son High cholesterol Social History Smoking Status: Never smoker Substance Use Type: None Substance Abuse Comment: occasional glass of wine Meds Medications and Allergies Allergies Sulfa (Sulfonamide Antibiotics) Allergy (Severe, Verified 10/19/23 11:20) Hives Cufxrjz-GKT-DyV Reductase Inhibitor [Oodadrs-Ppx-Ogb Reductase Inhibitor] Adverse Reaction (Severe, Verified 10/19/23 11:20) Joint pain/immobility Home Medications levothyroxine 50 mcg tablet (Synthroid) 50 mcg PO DAILY 03/28/19 [History Confirmed 11/15/23] magnesium oxide 400 mg (241.3 mg magnesium) tablet 400 mg PO DAILY 03/28/19 [History Confirmed 11/15/23] metoprolol succinate 50 mg tablet,extended release 24 hr 25 mg PO Q12H 03/28/19 [History Confirmed 11/15/23] evolocumab 140 mg/mL subcutaneous pen injector 140 mg subcut Q2W High cholesterol 09/17/19 [History Confirmed 11/15/23] pramipexole 0.5 mg tablet 0.25 mg PO BID Restless legs 09/17/19 [History Confirmed 11/15/23] isosorbide mononitrate 30 mg tablet,extended release 24 hr 30 mg PO DAILY 30 days #30 tabs 09/19/19 [Rx Confirmed 11/15/23] ranolazine 1,000 mg tablet,extended release,12 hr (Ranexa) 1,000 mg PO BID 30 days #60 tabs 09/19/19 [Rx Confirmed 11/15/23] aspirin 325 mg tablet 325 mg PO DAILY 30 days #30 tabs 10/20/23 [Rx Confirmed 11/15/23] cholecalciferol (vitamin D3) 125 mcg (5,000 unit) capsule 5,000 unit PO QDAY 11/15/23 [History Confirmed 11/15/23] ezetimibe 10 mg tablet (Zetia) 10 mg PO DAILY 11/15/23 [History Confirmed 11/15/23] losartan 50 mg tablet 50 mg PO BID 11/15/23 [History Confirmed 11/15/23] mecobalamin (vitamin B12) 1,000 mcg chewable tablet 1,000 mcg PO DAILY 11/15/23 [History Confirmed 11/15/23] Exam Physical Exam Vital Signs: Temp Pulse Resp BP 97.7 F 63 20 130/60 11/15/23 12:30 11/15/23 12:30 11/15/23 12:30 11/15/23 12:30 Narrative: GEN: Pleasant, cooperative, no acute distress. NECK: Supple. Trachea is midline. No adenopathy. LUNGS: CTAB. No wheezes or rhonchi CV: RRR. S1 and S2 present. No murmurs, rubs, or gallops. : No flank tenderness ABD: Soft. Non tender. Non distended. Bowel sounds present. EXT: Moves all extremities. No pitting edema in LE bilaterally. No calf muscle tenderness. NEURO: A+Ox3. A little stuttering her speech. Cranial nerves II through XII intact bilaterally. She does have bilateral upper and lower extremity tremors that are present at baseline and worsen with intention. Positive dndb-ya-xmdw test bilaterally. The patient's gait is ataxic SKIN: Dry. Intact. No rashes or lesions. PSYCH: Appropriate mood and affect for situation Results Lab Results Labs: Laboratory Last Values Corrected WBC 5.6 X10E3/uL (3.8-11.6) 11/15/23 08:30 RBC 4.29 X10E6/uL (3.60-5.00) 11/15/23 08:30 Hgb 14.5 g/dL (11.8-15.4) 11/15/23 08:30 Hct 42.2 % (34.0-46.4) 11/15/23 08:30 MCV 98.3 fl (80-100) 11/15/23 08:30 MCH 33.9 pg (24.7-34.3) 11/15/23 08:30 MCHC 34.5 g/dL (32.0-35.0) 11/15/23 08:30 RDW 13.3 % (11.9-15.3) 11/15/23 08:30 Plt Count 238 x10E3/uL (150-450) 11/15/23 08:30 MPV 9.4 fl (6.3-10.7) 11/15/23 08:30 PT 11.7 Seconds (9.0-12.9) 11/15/23 08:30 INR 1.0 11/15/23 08:30 APTT 33.8 Seconds (25.1-36.5) 11/15/23 08:30 PHA Creatinine Clear N/A 11/15/23 08:30 Sodium 138 mmol/L (136-145) 11/15/23 08:30 Potassium 4.3 mmol/L (3.5-5.1) 11/15/23 08:30 Chloride 101 mmol/L (98-107) 11/15/23 08:30 Carbon Dioxide 29.5 mmol/L (21.0-31.0) 11/15/23 08:30 Anion Gap 11.8 mEq/L (6.0-15.0) 11/15/23 08:30 BUN 17 mg/dL (7-25) 11/15/23 08:30 Creatinine 0.77 mg/dL (0.60-1.20) 11/15/23 08:30 Est GFR (CKD-EPI) > 60.0 mL/Min 11/15/23 08:30 Glucose 115 mg/dL (70-100) H 11/15/23 08:30 Calcium 9.1 mg/dL (8.6-10.3) 11/15/23 08:30 Total Bilirubin 0.5 mg/dl (0.3-1.0) 11/15/23 08:30 AST 16 U/L (13-39) 11/15/23 08:30 ALT 19 U/L (7-52) 11/15/23 08:30 Alkaline Phosphatase 48 U/L (34-104) 11/15/23 08:30 Troponin I High Sens 5.7 pg/mL (0.0-15.0) 11/15/23 08:30 Total Protein 6.7 gm/dL (6.4-8.9) 11/15/23 08:30 Albumin 4.3 gm/dL (3.5-5.7) 11/15/23 08:30 Globulin 2.4 gm/dL 11/15/23 08:30 Albumin/Globulin Ratio 1.8 11/15/23 08:30 Assessment & Plan Assessment/Plan (1) Brain TIA: (2) Hypertension: (3) Hypercholesteremia: (4) Abnormal rate of speech: Plan TIA History of cerebellar infarcts * CT/CTA head +neck in the ER was negative for signs of hemorrhage. Patient not given tPA (requirement not met) * EKG demonstrated normal sinus rhythm without evidence of acute ischemic changes * On telemetry * Aspiration precautions * Lipid profile and A1c done on previous admission 10/20/2023. A1c 5.6. Currently on Repatha and Zetia. Will continue these * TTE from 10/19/2023 was essentially unremarkable aside from some mild left atrial dilatation * Continue aspirin p.o. 325 mg daily as well as other home medications * PT/OT/ST * The patient does have multiple appointments set up at [facility] facility with cerebellar neurologist as this has been an ongoing problem. This is the patient's second TIA and she has already had 1 stroke all within the last 30 days. Chronic medical conditions Coronary artery disease Dyslipidemia Essential hypertension Hypothyroidism History of WA Diet: N.p.o. DVT PPX: SCDs Code Status: Full Code I personally saw this patient on the day of the encounter, reviewed the history,performed the aguiar elements of the exam, formulated the plan of care and confirmed the Resident's assessment and plan. I agree with the above, patient does have an appointment with neurologist in [facility] as mentioned above, family told me today that they reached out and her primary neurologist is actually attempting to move the appointment up sooner. At the plan my evaluation the few hours after the residents, her speech had almost completely normalized there is no further start stuttering, her neuroexam was almost entirely benign other than a slight sensory deficit on the left lateral thigh though the patient states this is not anything new. She has no unilateral weakness and her cranial nerves are all intact. I did talk to the patient that depth about starting Plavix therapy though apprehensive due to her seeing another neurologist, this point in time though I am going to start patient on Plavix and decrease her dose of aspirin to standard 81 mg. I did instruct them that if her neurologist at [facility] would like a different medication regimen that I recommend they follow his advice as he is more familiar with the patient. They vocalized understanding and were appreciative of the conversationand full disclosure. At this point in time the patient will not have MRI as it is unlikely to have a change in management, plan to observe her overnight for any worsening of her neurological symptoms and if she continues to improve overnight we will plan for discharge in the morning with instructions to follow-up at [facility] as planned. Patient and her family was agreeable with this plan. - Aaron Rod, IP vs OBS Justification Based on differential dx, clinical care plan, and risk of adverse events, if untreated, in my clinical judgement this patient requires an acute care setting as: OBSERVATION because of an expectation of an under 2 midnight stay. Estimated length of stay (# of days): 1 Documented By: Fran Georges DO, ISSA 11/15/23 1 354 Signed By: <Electronically signed by DO ISSA Georges> 11/15/23 1408 <Electronically signed by Aaron Rod DO> 11/15/23 0047 [facility] Work Phone: 1(184) 217-693712-22-2023 Consult note Author Eze Franks [facility] October 20, 2023 3:55pm Note Date/Time October 20, 2023 11:25am [facility] [address] [place] [address] Neurology Consult Note Signed Patient: Yani Gerard MR#: [id number] : 1940 Acct:[id number] Age/Sex: 83 / F Adm Date: 3 Loc: Room: [address] [place] [address] Type: ADM IN Attending Dr: Yuni Lundberg MD Copies to: DO Yuni Edouard MD Robert L Hill, MD~ HPI Consult Date: 10/20/23 Register Repairer: Aaron Hackett Review of Systems Review of Systems All other systems reviewed & are negative unless noted below or in HPI [facility] Medical History (Updated 10/19/23 @ 14:44 by Yuni Lundberg MD) Back pain CAD (coronary artery disease) Dyspnea Heart attack History of revision of total replacement of right hip joint Hypercholesteremia Hypertension Hypothyroidism Restless leg syndrome Surgical History History of coronary angioplasty with insertion of stent 2 stents History of hand surgery L. hand tendon repair for 5th finger History of hysterectomy History of lumbar surgery Hx of cardiac catheterization Family History Father Suicide Grandparent Heart disease Mother Atrial fibrillation Grandparent Atrial fibrillation Daughter Irregular heart beat Son High cholesterol Social History Smoking Status: Never smoker Substance Use Type: Alcohol Substance Abuse Comment: occasional glass of wine Meds Medications and Allergies Allergies Sulfa (Sulfonamide Antibiotics) Allergy (Severe, Verified 12/21/23 11:20) Hives Xunmqwo-FGV-YpQ Reductase Inhibitor [Fpqmqeu-Rfs-Mwx Reductase Inhibitor] Adverse Reaction (Severe, Verified 10/19/23 11:20) Joint pain/immobility Home Medications amlodipine 10 mg tablet 10 mg PO DAILY 03/28/19 [History Confirmed 10/19/23] aspirin 81 mg chewable tablet 81 mg PO DAILY 03/28/19 [History Confirmed 10/19/23] levothyroxine 50 mcg tablet (Synthroid) 50 mcg PO DAILY 03/28/19 [History Confirmed 10/19/23] losartan 25 mg tablet 25 mg PO BID 03/28/19 [History Confirmed 10/19/23] magnesium oxide 400 mg (241.3 mg magnesium) tablet 400 mg PO DAILY 03/28/19 [History Confirmed 10/19/23] metoprolol succinate 50 mg tablet,extended release 24 hr 50 mg PO DAILY 03/28/19[History Confirmed 10/19/23] nitroglycerin 0.4 mg sublingual tablet 0.4 mg sublingual Q5MIN.X3 PRN Chest Pain03/28/19 [History Confirmed 10/19/23] evolocumab 140 mg/mL subcutaneous pen injector 140 mg subcut Q2W High cholesterol 09/17/19 [History Confirmed 10/19/23] pramipexole 0.5 mg tablet 0.25 mg PO BID Restless legs 09/17/19 [History Confirmed 10/19/23] isosorbide mononitrate 30 mg tablet,extended release 24 hr 30 mg PO DAILY 30 days #30 tabs 09/19/19 [Rx Confirmed 10/19/23] ranolazine 1,000 mg tablet,extended release,12 hr (Ranexa) 1,000 mg PO BID 30 days #60 tabs 09/19/19 [Rx Confirmed 10/19/23] Exam Physical Exam Vital Signs: Temp Pulse Resp BP Pulse Ox O2 Del Method O2 Flow Rate 97.6 F 59 L 20 128/77 95 Nasal Cannula 2 10/20/23 07:44 10/20/23 07:44 10/20/23 07:44 10/20/23 07:44 10/20/23 07:44 10/20/23 08:05 10/20/23 08:05 Results Laboratory Findings 10/19/23 11:04 10/19/23 11:46 Lab Results: Hemoglobin A1c 5.4 % (4.3-5.6) 10/20/23 04:46 Diagnostic Findings Imaging/Impressions: ITS Impressions Chest X-Ray 10/19/23 11:03 IMPRESSION: Similar cardiomegaly and interstitial prominence. No new findings. Impression dictated by: Richard Haji M.D.10/19/2023 11:37 AM Dictation Location: [facility] 10/19/23 11:03 IMPRESSION: No acute findings. Preliminary 11:15 AM 10/19/2023 Impression dictated by: Richard Haji M.D.10/19/2023 11:35 AM Dictation Location: [facility] Head CTA 10/19/23 11:04 IMPRESSION: No occlusion, critical stenosis or dissection of the extracranial orintracranial circulation. Calcified plaquing of carotid bifurcations with 50% stenosis of the origin of the left internal carotid artery and less than 50% stenosis of the right internal carotid artery. Atherosclerosis of carotid siphons. Impression dictated by: Richard Haji M.D.10/19/2023 11:35 AM Dictation Location: [facility] Assessment/Plan (1) Left-sided weakness: Plan Reason for consult: CVA HPI: Patient is an 83-year-old female the past medical history of CAD, HTN, HLD, BPPV, hypothyroidism treated with Synthroid, and TIA one week ago seen at [facility] in [facility]. Following the TIA, dose of aspirin was increased to 162 mg and patient was discharged home. Patient presented to [facility] ER yesterday with complaint of abnormal speech, left-sided weakness, and shaking that started yesterday morning. Patient had an NIH stroke scale of 4 and the telestroke team recommended no acute intervention. Workup in the ER included a head CT with no acute findings and a head/neck CTA with no occlusion or critical stenosis identified. Upon encounter today, patient was resting comfortably in her chair at bedside accompanied by her son. Patient states she is tired but overall back to baseline. 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 Patient also reports she had some extremity shaking including both armsand would not have been able to leaf size picker a cup at that time with her right hand although she is right-hand dominant. Patient states this episode was almost identical to the one she had 1 week ago where she was diagnosed with a TIA. Reports both of these episodes have taken close to 24 hours to completely resolve. States the speech changes have been the last to resolve. Patient also states she had a diffuse pressure-like headache and that this quickly improved with oxygen in the emergency room. It appears her oxygen saturation dipped to 91% and then quickly jumped to 97% with 1 L oxygen via nasal cannula. Patient denies any home oxygen use and states that she does not have any underlying respiratory problems. Patient was not wearing oxygen duringencounter today. Patient also endorses double vision but states that this is a chronic problem for her and has been going on for years. Patient also states that within the past few months she has had about 3 falls athome. Patient states she is not losing consciousness during these falls but it is not known why this is occurring. Denies history of seizures. Patient's home medication does include aspirin 162 mg daily as well as Repatha 140 mg every 2 weeks. Patient states she has been on Repatha for at least a year. Patient is intolerant to statins. Patient denies any history of smoking. Examination: No focal neurological abnormalities. Sitting upright in chair in no apparent distress. Pupils equal and reactive to light. EOMI with no nystagmus. Palate elevation bilateral and symmetric. Smile symmetric with no facial droop. Hearing normal. Speech fluent and nondysarthric. Shoulder shrug symmetric. Sensation to touch, vibration, and pinprick diffusely intact. Proprioceptive testing normal including [id number]-jdjh and Romberg. Strength 5/5 in upper and lower extremities bilaterally. Brisk biceps and patellar reflexes bilaterally. Data review: -Brain MRI from 10/20/2023 is reviewed. Official read pending -Head CT from 10/19/2023 is nonacute -Head/neck CTA from 10/19/2023 shows no occlusions or critical stenosis of the extracranial or intracranial circulation. No vertebral dissection or occlusion identified. -A1c: 5.4 Lipid panel: Cholesterol 138, triglycerides 89, LDL 52, HDL 68 Most recent glucose: 111 Assessment: 83-year-old female with recent TIA and multiple risk factors for stroke presenting with left-sided weakness, changes in speech, and shakiness. Patient back to baseline during evaluation today with no concerning findings on physicalexam. No acute findings on head CT or head/neck CTA on ER admission. Plan: 1. Increase home aspirin from 162 mg to 325 mg 2. Continue home dose of Repatha 3. TTE ordered 4. Routine EEG Attestation Statement I endorse the portions of this note created by Aaron Hackett. I also saw andexamined the patient. Yani is here for evaluation of a second prolonged episode essentially identical to an episode she had last week that was evaluated in [place], [place]. Each episode has started with a feeling of tremulousness and nausea, the tremulousness continues on, and she gets some limb weakness as well, especially in the left extremities, and her speech becomes slurred and she has some stuttering. Each of these 2 episodes has seemed to spontaneously remit after approximately 24 hours total. The unilateral (left) predominance of symptoms has led to 2 different stroke workups now. Again now she has a MRI that is without any acute findings (there were some remote lacunar infarcts in the periventricular white matter). She left the hospital in [facility] with a diagnosis of TIA. I would not know how to localize her constellation of symptoms to any specific brain area to say this could represent recurrent TIA. Given the stereotyped nature to her symptoms during these episodes, we considered seizure, although that also seems very unlikely, and her routine EEG is completely unremarkable. Given that one of thecomponents of dysfunction here is a stuttering or stammering of her speech, and along with the other atypical symptoms, a functional symptom disorder episode could be a consideration, though it is also unclear why this is all of the sudden issue. I am having her take aspirin 325 mg rather than the 162 mg daily she was placed on last week (prior to that she had been on 81 mg daily at home). She is on a PCSK9 inhibitor. No other inpatient recommendations at this time. I suggested she purchase a cheap glucometer and carry around a wrist blood pressure cuff with her, so that if she gets another event where she feels tremulous and nauseated she can check her initial blood pressure and serum glucose. There is no real reason for her to be hypoglycemic. Okay for discharge from my standpoint. Documented By: Eze Franks DO 10/20/23 1023 Signed By: <Electronically signed by Eze Golden, DO> 10/20/23 155 [facility] Work Phone: 1(284) 442-486512-22-2023 Progress note Author Yuni Lundberg [facility] October 20, 2023 12:06pm Note Date/Time October 20, 2023 12:06pm [facility] [address] [place] [address] Hospitalist Progress Note Signed Patient: Yani Gerard MR#: [id number] : 1940 Acct:[id number] Age/Sex: 83 / F Adm Date: 3 Loc: 4N Room: [address] [place] [address] Type: ADM IN Attending Dr: Yuni Lundberg MD Copies to: ~ Date of Service: 10/20/2023 Subjective Subjective Narrative: Patient examined sitting on chair with no overnight event. Speech has improved and almost back to baseline. She denies further weakness in left extremities. Patient mentioned having similar episode when she get headache and then become jittery and yesterday she noticed that oxygen did help to improve her symptoms. She did have an episode of TIA a week ago. Exam Physical Exam Vital Signs: Temp Pulse Resp BP Pulse Ox O2 Del Method O2 Flow Rate 97.3 F L 49 L 20 151/80 H 94 L Room Air 2 10/20/23 11:35 10/20/23 11:35 10/20/23 11:35 10/20/23 11:35 10/20/23 11:35 10/20/23 11:35 10/20/23 08:05 Const General: cooperative Orientation: alert, awake and oriented x3 Resp Effort & Inspection: normal respiratory effort and able to speak in complete sentences Auscultation: no rales, no rhonchi and no wheezes Cardio Rate: regular rate Rhythm: regular rhythm Heart Sounds: S1 normal and S2 normal GI Palpation: soft, not firm, no guarding and nontender Neuro General: patient alert, patient awake, patient oriented x3, moves all extremities, no focal motor deficits and CN's II-XI intact bilaterally Cognition: normal cognition Speech: speech normal Motor: muscle tone normal throughout, strength 5/5 throughout and no pronator drift Sensory Exam: no sensory deficits noted Coordination: kxaoaq-bp-evmn test normal Extrem General: no clubbing, cyanosis or edema and no calf tenderness Objective Lab Results 10/19/23 11:04 10/19/23 11:46 Microbiology Results Microbiology 10/19/23 13:08 Urine - Clean-Voided Midstream Urine Culture - Preliminary 25,000 colonies/ml mixed bacterial skin contaminants including mixed gram negative bacilli - 1 Day Meds Allergies and Active Meds Allergies Sulfa (Sulfonamide Antibiotics) Allergy (Severe, Verified 10/19/23 11:20) Hives Asbykfg-QDS-SjL Reductase Inhibitor [Tvenlsg-Wim-Fnc Reductase Inhibitor] Adverse Reaction (Severe, Verified 10/19/23 11:20) Joint pain/immobility Active Meds: Active Medications Generic Name Dose Route Start Last Admin Trade Name Freq PRN Reason Stop Dose Admin Acetaminophen 650 mg 10/19/23 14:48 Acetaminophen 325 Mg Tablet PO 10/18/24 14:47 Q6HR PRN Pain Scale 1 - 3 or fever Aspirin 81 mg 10/20/23 09:00 10/20/23 09:38 Aspirin 81 Mg Tab.Chew PO 10/19/24 08:59 81 mg DAILY TRESA Administration Enoxaparin Sodium 40 mg 10/20/23 10:00 10/20/23 09:37 Enoxaparin 40 Mg/0.4 Ml Syringe SUBCUT 10/19/24 09:59 40 mg DAILY@10 TRESA Administration Isosorbide Mononitrate 30 mg 10/20/23 09:00 10/20/23 09:38 Isosorbide Mononitrate 24hr Er 30 Mg Tab.Er.24h PO 10/19/24 08:59 30 mg DAILY TRESA Administration Levothyroxine Sodium 50 mcg 10/20/23 06:30 10/20/23 06:05 Levothyroxine 50 Mcg Tablet PO 10/19/24 06:29 50 mcg DAILY@0630 TRESA Administration Magnesium Oxide 400 mg 10/20/23 09:00 10/20/23 09:38 Magnesium Oxide 400 Mg Tablet PO 10/19/24 08:59 400 mg DAILY TRESA Administration Metoprolol Succinate 50 mg 10/20/23 09:00 10/20/23 09:38 Metoprolol Succinate 50 Mg Tab.Er.24h PO 10/19/24 08:59 50 mg DAILY TRESA Administration Nitroglycerin 0.4 mg 10/19/23 14:50 Nitroglycerin 0.4 Mg Tab.Subl SUBLINGUAL 10/18/24 14:49 Q5MIN.X3 PRN Chest Pain Pramipexole Dihydrochloride 0.25 mg 10/19/23 21:00 10/20/23 09:38 Pramipexole 0.25 Mg Tablet PO 10/18/24 20:59 0.25 mg BID TRESA Administration Ranolazine 1,000 mg 10/19/23 21:00 10/20/23 09:38 Ranolazine 500 Mg Tab.Er.12h PO 10/18/24 20:59 1,000 mg BID TRESA Administration Sodium Chloride 0 ml 10/19/23 11:06 10/19/23 11:44 Sodium Chloride 0.9 % 10 Ml Syringe IV-PUSH 10/18/24 11:05 20 ml PRN PRN Administration Flush A&P - Hospitalist Assessment/Plan (1) Abnormal rate of speech: (2) Left-sided weakness: (3) ASHD (arteriosclerotic heart disease): (4) Hypertension: (5) Hypercholesteremia: Plan Patient has been admitted due to concern for recurrence of her symptoms. Yesterday she was complaining of headache and was noted to be ataxic/jittery in both upper extremities which has resolved. She was also stuttering yesterday with normal speech today. She did mention that oxygen was helping with her symptoms yesterday. Patient was admitted to [facility] in [facility] and underwent stroke workup and was diagnosed with TIA. Apparently she wastold that she has 80% blockage of vertebral artery but not seen in CTA head and neck obtained yesterday. Allergy has been consulted given recurrence of her symptoms and was given loading dose of Plavix as she is already on aspirin. Pending MRI and further stroke workup. A1c level 5.4 with LDL 52. Continue levothyroxine, isosorbide mononitrate, ranolazine and metoprolol. Patient is not able to tolerate statin and currently on PCSK9 inhibitor Injections. Documented By: Yuni Lundberg MD 10/20/23 1203 Signed By: <Electronically signed by Yuni Lundberg MD> 10/20/23 5103 [facility] Work Phone: 1(167) 683-408112-21-2023 History and physical note Author Yuni Lundberg [facility] October 19, 2023 2:47pm Note Date/Time October 19, 2023 2:38pm [facility] [address] [place] [address] Hospitalist H&P Signed Patient: Yani Gerard MR#: [id number] : 1940 Acct:[id number] Age/Sex: 83 / F Adm Date: 3 Loc: ER Room: Type: [facility] ER Attending Dr: Copies to: Kem Hammond, MD Kyle Nguyen MD~ HPI DATE OF EXAMINATION: 10/19/23 CHIEF COMPLAINT: Abnormal speech with left-sided weakness. HISTORY OF PRESENT ILLNESS: Patient is an 83-year-old female with past medical history of coronary disease status post PCI to LAD in 03/17, hyperlipidemia and hypertension. She presented to ER with complaint of abnormal speech and left-sided weakness that started earlier today. She mentioned having similar symptoms a week ago and was admitted to [facility] in [place] where she stayed for a day and underwent stroke workup. Dose of aspirin was increased to 1 6 2 mg and was discharged home. She has been doing well until this morning when she woke up early around 4 AM due to difficulty sleeping. Around 1015am she started noticinghaving left-sided weakness with stuttering of speech feeling weak and shaking. In the emergency room stroke alert was called with NIH stroke scale of 4. Case was discussed with telestroke team in [place] by ER physician and no acute intervention or thrombolytic recommended. CTA head and neck did not show critical stenosis and noted to have 50% stenosis of left internal carotid arteryand less than 50% of right internal carotid artery. 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 On examination she was lying flat comfortably but noted to have stuttering of speech and ataxia both upper extremities more on theleft. Patient has noticed her weakness has improved on the left upper and lowerextremities. Review of Systems Review of Systems All other systems reviewed & are negative unless noted below or in HPI [facility] Medical History (Updated 10/19/23 @ 14:44 by Yuni Lundberg MD) Back pain CAD (coronary artery disease) Dyspnea Heart attack History of revision of total replacement of right hip joint Hypercholesteremia Hypertension Hypothyroidism Restless leg syndrome Surgical History History of coronary angioplasty with insertion of stent 2 stents History of hand surgery L. hand tendon repair for 5th finger History of hysterectomy History of lumbar surgery Hx of cardiac catheterization Family History Father Suicide Grandparent Heart disease Mother Atrial fibrillation Grandparent Atrial fibrillation Daughter Irregular heart beat Son High cholesterol Social History Smoking Status: Never smoker Substance Use Type: None Meds Medications and Allergies Allergies Sulfa (Sulfonamide Antibiotics) Allergy (Severe, Verified 10/19/23 11:20) Hives Oawpmwz-RAJ-IwL Reductase Inhibitor [Yiekwqa-Ikl-Hul Reductase Inhibitor] Adverse Reaction (Severe, Verified 10/19/23 11:20) Joint pain/immobility Home Medications amlodipine 10 mg tablet 10 mg PO DAILY 03/28/19 [History Confirmed 10/19/23] aspirin 81 mg chewable tablet 81 mg PO DAILY 03/28/19 [History Confirmed 10/19/23] levothyroxine 50 mcg tablet (Synthroid) 50 mcg PO DAILY 03/28/19 [History Confirmed 10/19/23] losartan 25 mg tablet 25 mg PO BID 03/28/19 [History Confirmed 10/19/23] magnesium oxide 400 mg (241.3 mg magnesium) tablet 400 mg PO DAILY 03/28/19 [History Confirmed 10/19/23] metoprolol succinate 50 mg tablet,extended release 24 hr 50 mg PO DAILY 03/28/19[History Confirmed 10/19/23] nitroglycerin 0.4 mg sublingual tablet 0.4 mg sublingual Q5MIN.X3 PRN Chest Pain03/28/19 [History Confirmed 10/19/23] evolocumab 140 mg/mL subcutaneous pen injector 140 mg subcut Q2W High cholesterol 09/17/19 [History Confirmed 10/19/23] pramipexole 0.5 mg tablet 0.25 mg PO BID Restless legs 09/17/19 [History Confirmed 10/19/23] isosorbide mononitrate 30 mg tablet,extended release 24 hr 30 mg PO DAILY 30 days #30 tabs 09/19/19 [Rx Confirmed 10/19/23] ranolazine 1,000 mg tablet,extended release,12 hr (Ranexa) 1,000 mg PO BID 30 days #60 tabs 09/19/19 [Rx Confirmed 10/19/23] Exam Physical Exam Vital Signs: Temp Pulse Resp BP Pulse Ox O2 Del Method O2 Flow Rate 97.1 F L 63 16 142/65 H 97 Nasal Cannula 1 10/19/23 10:58 10/19/23 13:15 10/19/23 12:55 10/19/23 12:55 10/19/23 12:55 10/19/23 12:55 10/19/23 12:55 Const General: cooperative Orientation: alert, awake and oriented x3 HEENT Head: normal to inspection, no palpable skull fracture, normocephalic and atraumatic Eyes Pupils: PERRL EOM: EOM intact bilaterally and No nystagmus Neck Neck: normal visual inspection and full ROM Resp Effort & Inspection: normal respiratory effort and able to speak in complete sentences Auscultation: no rales, no rhonchi and no wheezes Cardio Rate: regular rate Rhythm: regular rhythm Heart Sounds: S1 normal and S2 normal GI Palpation: soft, not firm, no guarding and nontender Neuro General: patient alert, patient awake and patient oriented x3 Other: No facial asymmetry or dysarthria. Noted to have stuttering of speech intermittently. Ataxia bilaterally in upper extremities with more on left. Motor strength 5 out of 5 in both upper extremities and lower extremities. Sensation intact normal visual acuity. Extrem General: no clubbing, cyanosis or edema and no calf tenderness Results Lab Results Labs: Laboratory Last Values Corrected WBC 5.2 X10E3/uL (3.8-11.6) 10/19/23 11:04 Uncorrected WBC Count 5.2 x10E3/uL (3.8-11.6) 10/19/23 11:04 RBC 4.10 X10E6/uL (3.60-5.00) 10/19/23 11:04 Hgb 13.9 g/dL (11.8-15.4) 10/19/23 11:04 Hct 40.8 % (34.0-46.4) 10/19/23 11:04 MCV 99.5 fl (80-100) 10/19/23 11:04 MCH 33.9 pg (24.7-34.3) 10/19/23 11:04 MCHC 34.1 g/dL (32.0-35.0) 10/19/23 11:04 RDW 13.6 % (11.9-15.3) 10/19/23 11:04 Plt Count 258 x10E3/uL (150-450) 10/19/23 11:04 MPV 8.9 fl (6.3-10.7) 10/19/23 11:04 Neut % (Auto) 62.7 % (.) 10/19/23 11:04 Lymph % (Auto) 25.2 % (.) 10/19/23 11:04 Calvert % (Auto) 9.4 % (.) 10/19/23 11:04 Eos % (Auto) 1.5 % (.) 10/19/23 11:04 Baso % (Auto) 1.2 % (.) 10/19/23 11:04 Nucleat RBC Rel Count 0.1 /100 WBC (0-0.5) 10/19/23 11:04 Neut # (Auto) 3.3 x10E3/uL (1.8-7.7) 10/19/23 11:04 Lymph # (Auto) 1.3 x10E3/uL (1.00-4.8) 10/19/23 11:04 Calvert # (Auto) 0.5 x10E3/uL (0.0-0.8) 10/19/23 11:04 Eos # (Auto) 0.1 x10E3/uL (0.0-0.45) 10/19/23 11:04 Baso # (Auto) 0.1 x10E3/uL (0.0-0.2) 10/19/23 11:04 Monocyte Dist Width 18.50 % (0.00-20.00) 10/19/23 11:04 PT 10.7 Seconds (9.0-12.9) 10/19/23 11:04 INR 0.9 10/19/23 11:04 APTT 33.1 Seconds (25.1-36.5) 10/19/23 11:04 PHA Creatinine Clear 51.60 10/19/23 11:04 Sodium 136 mmol/L (136-145) 10/19/23 11:04 Potassium 4.5 mmol/L (3.5-5.1) 10/19/23 11:46 Chloride 101 mmol/L (98-107) 10/19/23 11:04 Carbon Dioxide 27.5 mmol/L (21.0-31.0) 10/19/23 11:04 Anion Gap TNP 10/19/23 11:04 BUN 20 mg/dL (7-25) 10/19/23 11:04 Creatinine 0.65 mg/dL (0.60-1.20) 10/19/23 11:04 Est GFR (CKD-EPI) > 60.0 mL/Min 10/19/23 11:04 Glucose 111 mg/dL (70-100) H 10/19/23 11:04 POC Glucose 103 mg/dl 10/19/23 11:06 Calcium 9.3 mg/dL (8.6-10.3) 10/19/23 11:04 Total Bilirubin 0.4 mg/dl (0.3-1.0) 10/19/23 11:04 Direct Bilirubin 0.10 mg/dL (0.03-0.18) 10/19/23 11:04 Indirect Bilirubin 0.3 mg/dL 10/19/23 11:04 AST 20 U/L (13-39) 10/19/23 11:04 ALT 24 U/L (7-52) 10/19/23 11:04 Alkaline Phosphatase 52 U/L (34-104) 10/19/23 11:04 Total Creatine Kinase 71 U/L (30-223) 10/19/23 11:04 Troponin I High Sens 6.3 pg/mL (0.0-15.0) 10/19/23 11:04 B-Natriuretic Peptide 97.0 pg/mL (5-100) 10/19/23 11:04 Total Protein 7.2 gm/dL (6.4-8.9) 10/19/23 11:04 Albumin 4.6 gm/dL (3.5-5.7) 10/19/23 11:04 Globulin 2.6 gm/dL 10/19/23 11:04 Albumin/Globulin Ratio 1.8 10/19/23 11:04 Urine Color Yellow (Yellow) 10/19/23 13:08 Urine Appearance Clear (Clear) 10/19/23 13:08 Urine pH 8.0 (5.0-9.0) 10/19/23 13:08 Ur Specific Coleman 1.045 (1.001-1.030) H 10/19/23 13:08 Urine Protein Negative mg/dL (Negative) 10/19/23 13:08 Urine Glucose (UA) Normal mg/dL (Normal) 10/19/23 13:08 Urine Ketones Negative (Negative) 10/19/23 13:08 Urine Occult Blood Negative (Negative) 10/19/23 13:08 Urine Nitrite Negative (Negative) 10/19/23 13:08 Urine Bilirubin Negative (Negative) 10/19/23 13:08 Urine Urobilinogen Normal mg/dL (Normal) 10/19/23 13:08 Ur Leukocyte Esterase 2+ (Negative) H 10/19/23 13:08 Urine RBC 0-1 /HPF (0-4) 10/19/23 13:08 Urine WBC 5-9 /HPF (0-4) H 10/19/23 13:08 Ur Squamous Epith Cells None seen /HPF (0-2) 10/19/23 13:08 Urine Bacteria None seen (None Seen) 10/19/23 13:08 Hyaline Casts None seen /LPF (0-8) 10/19/23 13:08 Assessment & Plan Assessment/Plan (1) Abnormal rate of speech: (2) Left-sided weakness: (3) ASHD (arteriosclerotic heart disease): (4) Hypertension: (5) Hypercholesteremia: Plan Patient with recent TIA presented to ER with abnormal speech and left-sided weakness. Given her recurrent symptoms concerning for CVA and she will be admitted for further stroke workup. She does have multiple risk factors holdingcoronary disease and hyperlipidemia. She has been intolerant to statin and currently on PCSK9 inhibitor. Will obtain stroke workup including echocardiogram, MRI brain, A1c and lipid profile. Add Plavix to aspirin and consult neurology. Continue metoprolol, levothyroxine and hold amlodipine to prevent drop in blood pressure. DVT prophylaxis. Consult PT/OT/ST. IP vs OBS Justification Based on differential dx, clinical care plan, and risk of adverse events, if untreated, in my clinical judgement this patient requires an acute care setting as: INPATIENT because of an expectation of an over 2 midnight stay. Estimated length of stay (# of days): 3 Documented By: Yuni Lundberg MD 10/19/23 1437 Signed By: <Electronically signed by Yuni Lundberg MD> 10/19/23 1447 [facility] Work Phone: 1(369) 604-484212-20-2023 Miscellaneous Notes* Telephone Encounter - Jayden Burks MD - 10/18/2023 4:06 PM EST Noted and appreciated. Jayden Burks MD * Telephone Encounter - Flaquita Tomlinson RN - 10/18/2023 11:51 AM EST Forwarded to provider. * Telephone Encounter - Dakota Rachel - 10/18/2023 11:23 AM EST Received out side medical records, scan in patient chart for review. * Telephone Encounter - Vonnie Bauer - 10/18/2023 9:57 AM EST Per patient's request, fax sent to medical records from [facility] faxed #[phone], sent as CAROL as the appointment is tomorrow. Confirmation received. documented in this encounterWayne Hospital11-14-2023 Miscellaneous Notes* Telephone Encounter - Leila Jordan MA - 09/12/2023 2:40 PM EST Patient phones requesting refills as follows: Requested Prescriptions Pending Prescriptions Disp Refills amLODIPine (NORVASC) 10 mg tablet 90 tablet 3 Sig: Take 1 tablet by mouth once daily. isosorbide mononitrate ER (IMDUR) 30 mg 24 hr tablet 90 tablet 3 Sig: Take 1 tablet by mouth once daily. metoprolol succinate ER (TOPROL XL) 50 mg 24 hr tablet 90 tablet 3 Sig: Take 1 tablet by mouth once daily. ezetimibe (ZETIA) 10 mg tablet 90 tablet 3 Sig: Take 1 tablet by mouth once daily. Please review and advise. Leila Jordan MA documented in this encounterWayne Hospital08-22-2023 Miscellaneous Notes* Telephone Encounter - Joel Garcia RN - 06/20/2023 8:20 AM EDT Patient called. Had C with Dr Allen 06/14. Has been having right arm pain, from RRA site up to shoulder consistently for the past week. Patient states she can't sleep from the pain. She hasn't triedicing it (will now) Patient states that when she props it up on a pillow it feels better, but its so painful that it wakes her at night if she lays on it and then stays up from the pain. It is not a soreness, but a definitive pain that has been uncomfortable. Will forward to Dr Allen for next steps. documented in this encounterWayne Hospital08-14-2023 History of Present illness Narrative* Fiona Harkins MD - 06/12/2023 3:41 PM EDT Images from the original note were not included. Heart [facility] V[facility] Department of Cardiovascular Medicine [facility] OUTPATIENT VISIT DATE June 12, 2023 OUTPATIENT VISIT TYPE Established Patient PRIMARY CARE PHYSICIAN: Kyle Amin [address] [place] [address] REFERRING PHYSICIAN: Kyle Amin [address] [facility] [address] CHIEF COMPLAINT: Small heart attack in [place] HISTORY OF PRESENT ILLNESS: Ms. Gerard is a 82 year old female who presents today with prior LAD stent and RCA disease, and Troponin T of 0.6 after having chest pain/ back pain lasting 6 min in [place]. She layed in bed with no recurrence. She felt tired for one day and that's it. She is up and down 16 steps in her [employer] and Breakfast where she lives and works and very busy. She uses can a cane for right hip pain from L5 disc issue. The discomfort was similar to her LAD stent with associated jaw , back and chest discomfort though no arm pain this time. She denies orthopnea, cough, edema, palpitations, PND, lightheadedness or syncope. PROBLEM LIST: Specialty Problems Cardiology Problems HTN (hypertension) Hyperlipidemia CAD (coronary artery disease) Paroxysmal supraventricular tachycardia (HCC) PAST MEDICAL HISTORY Diagnosis Date Benign paroxysmal positional vertigo of right ear 10/03/2018 CAD (coronary artery disease) 03/28/2019 LAD proximal stent , RCA nondominant bifurcating severe disease small medical rx Dizziness 09/24/2018 HTN (hypertension) Hypertension Lumbar back pain with radiculopathy affecting left lower extremity 03/21/2019 Pulmonary HTN (HCC) PAST SURGICAL HISTORY Procedure Laterality Date CC CORONARY STENT 03/28/2019 LAD prox stent , RCA nondominant bifurcating severe disease small medical rx , [facility] POST-CATARACT LASER SURGERY Bilateral REMV CATARACT EXTRACAP,INSERT LENS Bilateral 2016 REVISE TOTAL HIP REPLACEMENT Right TOTAL HIP REPLACEMENT Right SOCIAL HISTORY Social History Tobacco Use Smoking status: Never Smokeless tobacco: Never Vaping Use Vaping Use: Never used Substance Use Topics Alcohol use: Yes Comment: wine occas Drug use: No FAMILY HISTORY Problem Relation Age of Onset Heart Mother heart attack Hypertension Mother Cancer Mother stomach Cancer Sister breast non smoker half sister Heart Maternal Grandmother heart attack Diabetes No Family History Cataract No Family History Glaucoma No Family History Macular Degen No Family History ALLERGIES: ALLERGIES Allergen Reactions Zetia [Ezetimibe] Myalgia Severe muscle pain fingers and legs, discontinued after 5 doses Gabapentin Other: See Comments Other reaction(s): nausea Pramipexole Other: See Comments Other reaction(s): nausea/dizziness, blurry vision Ropinirole Other: See Comments Other reaction(s): nausea/dizziness, blurry vision Cebtfqy-Gnj-Eoz Red* Other: See Comments Sulfa (Sulfonamide * Rash MEDICATIONS: ranolazine SR (RANEXA) 1,000 mg tab ER 12 hr^Take 1 tablet by mouth twice daily.^Disp: 180 tablet^Rfl: 3 nitroglycerin sublingual (NITROQUICK) 0.3 mg SL tablet^Dissolve 1 tablet under the tongue every 5 minutes as needed for chest pain.^Disp: 25 tablet^Rfl: 3 ojifquhrmhv-wyhxiihec-tzxttaxb (TRELEGY ELLIPTA) 100-62.5-25 mcg inhalation powder^Inhale 1 Puff asinstructed.^Disp: ^Rfl: furosemide (LASIX) 20 mg tablet^Take 1 tablet by mouth once daily.^Disp: 60 tablet^Rfl: evolocumab (REPATHA SURECLICK) 140 mg/mL pen injector^Inject 140 mg subcutaneously as directed. Inject 1 pen subcu every 2 wks^Disp: 6 Each^Rfl: 3 amLODIPine (NORVASC) 10 mg tablet^Take 1 tablet by mouth once daily.^Disp: 90 tablet^Rfl: 3 isosorbide mononitrate ER (IMDUR) 30 mg 24 hr tablet^Take 1 tablet by mouth once daily.^Disp: 90 tablet^Rfl: 3 losartan (COZAAR) 25 mg tablet^Take 2 tablets by mouth twice daily.^Disp: 180 tablet^Rfl: 3 Magnesium 200 mg tab^Take 2 tablets by mouth once daily.^Disp: 180 tablet^Rfl: 3 ezetimibe (ZETIA) 10 mg tablet^Take 1 tablet by mouth once daily.^Disp: 90 tablet^Rfl: 3 aspirin 325 mg cap^Take 81 mg by mouth once daily.^Disp: ^Rfl: cholecalciferol, vitamin D3, (VITAMIN D3 ORAL)^Take by mouth.^Disp: ^Rfl: Ascorbic Acid (VITAMIN C) 100 mg tablet^Take 100 mg by mouth once daily.^Disp: ^Rfl: acetaminophen 650 mg CR tablet^Take 650 mg by mouth every 8 hours as needed.^Disp: ^Rfl: ibuprofen (MOTRIN) 800 mg tablet^Take 800 mg by mouth every 6 hours as needed.^Disp: ^Rfl: pramipexole (MIRAPEX) 0.5 mg tablet^Take 0.5 mg by mouth once daily.^Disp: ^Rfl: metoprolol succinate ER (TOPROL XL) 50 mg 24 hr tablet^Take 1 tablet by mouth once daily.^Disp: 90 tablet^Rfl: 3 (Patient taking differently: Take 25 mg by mouth once daily. Taking 25 mg daily) levothyroxine (SYNTHROID) 75 mcg tablet^Take 1 tablet by mouth once daily.^Disp: 90 tablet^Rfl: 4 (Patient taking differently: Take 50 mcg by mouth once daily.) REVIEW OF SYSTEMS: GENERAL: Negative for: Weight loss or gain, Fever or Chills, Weakness and Sleep difficulties. HEENT: Negative for: Headache, Impaired Vision, Glasses, Hearing Impairment, Ringing in Ears, Nosebleeds, Poor dental care, Bleeding Gums, Dentures NECK: Negative for: Swelling, Pain, Stiffness RESPIRATORY: Negative for: Cough, Blood in Sputum, Shortness of breath, Wheezing, Apnea GASTROINTESTINAL: Negative for: Trouble swallowing, Heartburn, Change in bowel habits, Blood in stool, Dark black stools MUSCULOSKELETAL: Negative for: Muscle or joint pain, Stiffness , Joint swelling NEUROLOGIC/PSYCHIATRIC: Negative for: Weakness, Paralysis, Numbness, Tingling, Tremor, Nervousness,Depressed mood, Memory loss SKIN: Negative for: Rashes, Itching HEMATOLOGICAL/LYMPHATIC: Negative for: Easy bruising , Easy bleeding ENDOCRINE: Negative for: Heat or cold intolerance, Excessive sweating, Frequent urination, Frequentthirst I personally interviewed, confirmed and edited the above information if obtained by others. PHYSICAL EXAMINATION: BP 114/53 Pulse (!) 59 Ht 157.5 cm (5' 2 ) Wt 72.6 kg (160 lb) BMI 29.26 kg/m General: Well appearing, in no acute distress. Skin: No clubbing, no cyanosis. Neck: No jugular venous distention, no carotid bruits, carotids have a normal upstroke, no palpablethyromegaly. Lungs: Clear to auscultation bilaterally, no wheezing or rhonchi. Heart: Regular rhythm, PMI not displaced, S1, S2 normal, no S3, no S4, no heaves, no rub and no murmur. Abdomen: Soft, nontender, bowel sounds normal, no palpable organomegaly, no bruits. Extremities: No peripheral edema . Neuro: Oriented to person, place and time, alert, cooperative, gait coordinated. CARDIOVASCULAR MEDICINE TESTING: IMPRESSION: Ms. Gerard is a 82 year old female with recurrent angina episode in bed with elevated troponin nowpain free, with similar symptoms as her prior 2019 LAD stent with significant nondominant RCA disease. Cardiac catheterization / possible angioplasty and stent reviewed with the patient. Reviewed risk benefit of procedure including stroke, dye allergy, bleeding, and even very low risk of . Option of not performing this procedure also reviewed. Patient understands and is agreeable. . PLAN AND RECOMMENDATIONS: (I25.119) 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, unspecified vessel or lesion type (HCC) (primary encounter diagnosis) Comment: recurrent , at rest 2 weeks ago Plan: for cath possible PCI CONTACT INFORMATION: MD Kyle Neff and Melony [facility] Department of Cardiovascular Medicine Heart and Vascular [facility] [id number] [place] [address] [address] [place] [address] documented in this encounterWayne Hospital07-03-2023 Miscellaneous Notes* Telephone Encounter - Flaquita Tomlinson - 05/01/2023 10:30 AM EDT Lab order faxed to [facility] at number below provided by patient. Patient notified. * Telephone Encounter - Suresh Hartman - 05/01/2023 10:21 AM EDT Fax number [phone]. Phone number is [phone]. Does she need to do anything prior to getting labs drawn? Patient can be reached at [phone] * Telephone Encounter - Flaquita Tomlinson - 05/01/2023 10:10 AM EDT Patient notified of message below. She is to call office back with fax number to send lab order to. * Telephone Encounter - Flaquita Tomlinson - 04/28/2023 10:27 AM EDT LM for to call office back for message below. * Telephone Encounter - Jayden Burks MD - 04/26/2023 6:05 PM EDT She has a low normal B12 level and we will order a methylmalonic acid lest she have occult B12 deficiency. Jayden Burks MD Methylmalonic acid level ordered and filed. Jayden Burks MD * Telephone Encounter - Chrystal Gómez RN - 04/26/2023 12:09 PM EDT Labs available in scanned documents for review. Routed to provider * Telephone Encounter - Chrystal Gómez RN - 04/25/2023 5:02 PM EDT Awaiting to view outside labs in scanned documents. * Telephone Encounter - Vonnie Jo - 04/25/2023 2:01 PM EDT Received outside labs from [facility], in [facility] for review. documented in this encounterWayne Hospital06-20-2023 History of Present illness Narrative* Jayden Burks MD - 04/18/2023 4:33 PM EDT She is seen in follow-up today because of diplopia which in fact persists essentially unchanged. The results of the acetylcholine receptor autoantibodies were unremarkable. She is a bit concerned about occasional difficulty finding words which ultimately come to her with persistence. This problem does not significantly interfere with her day-to-day functioning. Today on examination she is awake, alert, pleasant, cooperative and coherent. Cranial Nerves: II-visual mario full III IV -extraocular movements normal VII-muscles of facial expression normal in power bilaterally Motor System: The tendon reflexes are symmetric. In summary, overall she is clinically stable. I suspect her cognitive difficulties are reflective of a retrievable problem which commonly occurs with normal aging. Certainly there is insufficient data to support the diagnosis of dementia at this time. As a precaution we have ordered laboratory studies to consist of a sedimentation rate, C-reactive protein, TSH, B-12 and folate and she is to contact us for the results. A follow-up visit has been scheduled. documented in this encounterWayne Hospital04-11-2023 Miscellaneous Notes* Telephone Encounter - Deandre Valerio Ma - 02/07/2023 10:06 AM EDT Patient phones requesting refills as follows: Requested Prescriptions Signed Prescriptions Disp Refills furosemide (LASIX) 20 mg tablet 60 tablet Sig: Take 1 tablet by mouth once daily. Authorizing Provider: FIONA HARKINS Ordering User: DEANDRE VALERIO MA Please review and advise. Deandre Valerio Ma documented in this encounterWayne [facility] Miscellaneous Notes* Telephone Encounter - Fiona Harkins MD - 01/02/2023 5:43 PM EST Echo of heart shows heart squeezes normally, mild to moderate narrowing of the aortic valve , not felt to need any treatment, cont rx, would repeat echo in 1 year Fiona Harkins MD documented in this [facility]03-06-2023 Miscellaneous Notes* Telephone Encounter - Gus Pro RN - 01/02/2023 4:42 PM EST Spoke to patient in regards to echo results from 12/29/22. Pt will continue with her current treatment plan. No further questions at this time. * Telephone Encounter - Fiona Harkins MD - 01/02/2023 3:58 PM EST Echo of heart shows heart squeezes normally, mild to moderate narrowing of the aortic valve not felt to require any treament, would repeat echo in 1 year, cont rx Fiona Harkins MD * Telephone Encounter - Gus Pro RN - 01/02/2023 3:31 PM EST Pt requesting results of her echo done 12/29/22. Please advise if anything needs addressed. No previous echo. * Telephone Encounter - Beto Spivey - 01/02/2023 3:24 PM EST Patient would like to get the results of her echo that was done on 12/29/22. Please call her cell phone. Please review. Beto Spivey documented [facility] this [facility] History of Present illness Narrative* Fiona Harkins MD - 12/15/2022 11:18 AM EST Images from the original note were not included. [facility] Department of Cardiovascular Medicine [facility] OUTPATIENT VISIT DATE December 15, 2022 OUTPATIENT VISIT TYPE Established Patient PRIMARY CARE PHYSICIAN: Kyle Amin [address] [facility] [address] [place] [address] REFERRING PHYSICIAN: No referring provider defined for this encounter. CHIEF COMPLAINT: Leg swelling HISTORY OF PRESENT ILLNESS: Ms. Gerard is a 82 year old female who presents today with old stents- new leg edema over the past2 weeks driving back from [place] over 2days. Lasix has helped for the 5 days that she took it. Shegained 16 lbs in 4 months and feels short of breath . She has a dry cough . She some pain in the right leg. She denies chest pain, orthopnea, palpitations, PND, lightheadedness or syncope. PROBLEM LIST: Specialty Problems Cardiology Problems HTN (hypertension) Hyperlipidemia CAD (coronary artery disease) PAST MEDICAL HISTORY Diagnosis Date Benign paroxysmal positional vertigo of right ear 10/03/2018 CAD (coronary artery disease) 03/28/2019 LAD proximal stent , RCA nondominant bifurcating severe disease small medical rx Dizziness 09/24/2018 Hypertension Lumbar back pain with radiculopathy affecting left lower extremity 03/21/2019 PAST SURGICAL HISTORY Procedure Laterality Date CC CORONARY STENT 03/28/2019 LAD prox stent , RCA nondominant bifurcating severe disease small medical rx , [facility] POST-CATARACT LASER SURGERY Bilateral REMV CATARACT EXTRACAP,INSERT LENS Bilateral 2015 REVISE TOTAL HIP REPLACEMENT Right TOTAL HIP REPLACEMENT Right SOCIAL HISTORY Social History Tobacco Use Smoking status: Never Smokeless tobacco: Never Vaping Use Vaping Use: Never used Substance Use Topics Alcohol use: Yes Comment: wine occas Drug use: No FAMILY HISTORY Problem Relation Age of Onset Heart Mother heart attack Hypertension Mother Cancer Mother stomach Cancer Sister breast non smoker half sister Heart Maternal Grandmother heart attack Diabetes No Family History Cataract No Family History Glaucoma No Family History Macular Degen No Family History ALLERGIES: ALLERGIES Allergen Reactions Zetia [Ezetimibe] Myalgia Severe muscle pain fingers and legs, discontinued after 5 doses Gabapentin Other: See Comments Other reaction(s): nausea Pramipexole Other: See Comments Other reaction(s): nausea/dizziness, blurry vision Ropinirole Other: See Comments Other reaction(s): nausea/dizziness, blurry vision Jaeqksl-Ela-Yeo Red* Other: See Comments Sulfa (Sulfonamide * Rash MEDICATIONS: evolocumab (REPATHA SURECLICK) 140 mg/mL pen injector Inject 140 mg subcutaneously as directed. Inject 1 pen subcu every 2 wks amLODIPine (NORVASC) 10 mg tablet Take 1 tablet by mouth once daily. isosorbide mononitrate ER (IMDUR) 30 mg 24 hr tablet Take 1 tablet by mouth once daily. losartan (COZAAR) 25 mg tablet Take 2 tablets by mouth twice daily. Magnesium 200 mg tab Take 2 tablets by mouth once daily. ezetimibe (ZETIA) 10 mg tablet Take 1 tablet by mouth once daily. aspirin 325 mg cap Take 81 mg by mouth once daily. cholecalciferol, vitamin D3, (VITAMIN D3 ORAL) Take by mouth. Ascorbic Acid (VITAMIN C) 100 mg tablet Take 100 mg by mouth once daily. acetaminophen 650 mg CR tablet Take 650 mg by mouth every 8 hours as needed. ibuprofen (MOTRIN) 800 mg tablet Take 800 mg by mouth every 6 hours as needed. pramipexole (MIRAPEX) 0.5 mg tablet Take 0.5 mg by mouth once daily. ranolazine SR (RANEXA) 1,000 mg tab ER 12 hr Take 1 tablet by mouth twice daily. levothyroxine (SYNTHROID) 75 mcg tablet Take 1 tablet by mouth once daily. (Patient taking differently: Take 50 mcg by mouth once daily.) metoprolol succinate ER (TOPROL XL) 50 mg 24 hr tablet Take 1 tablet by mouth once daily. (Patient taking differently: Take 25 mg by mouth once daily. Taking 25 mg daily) REVIEW OF SYSTEMS: GENERAL: Negative for: Weight loss or gain, Fever or Chills, Weakness and Sleep difficulties. HEENT: Negative for: Headache, Impaired Vision, Glasses, Hearing Impairment, Ringing in Ears, Nosebleeds, Poor dental care, Bleeding Gums, Dentures NECK: Negative for: Swelling, Pain, Stiffness RESPIRATORY: Negative for: Cough, Blood in Sputum, Shortness of breath, Wheezing, Apnea GASTROINTESTINAL: Negative for: Trouble swallowing, Heartburn, Change in bowel habits, Blood in stool, Dark black stools MUSCULOSKELETAL: Negative for: Muscle or joint pain, Stiffness , Joint swelling NEUROLOGIC/PSYCHIATRIC: Negative for: Weakness, Paralysis, Numbness, Tingling, Tremor, Nervousness,Depressed mood, Memory loss SKIN: Negative for: Rashes, Itching HEMATOLOGICAL/LYMPHATIC: Negative for: Easy bruising , Easy bleeding ENDOCRINE: Negative for: Heat or cold intolerance, Excessive sweating, Frequent urination, Frequentthirst I personally interviewed, confirmed and edited the above information if obtained by others. PHYSICAL EXAMINATION: BP 133/68 Pulse 63 Ht 157.5 cm (5' 2 ) Wt 74.4 kg (164 lb) SpO2 96% BMI 30.00 kg/m General: Well appearing, in no acute distress. Skin: No clubbing, no cyanosis. Eyes: Extra ocular movements intact Oropharynx: Teeth in good repair. Neck: No jugular venous distention, no carotid bruits, carotids have a normal upstroke, no palpablethyromegaly. Lungs: Clear to auscultation bilaterally, no wheezing or rhonchi. Heart: Regular rhythm, PMI not displaced, S1, S2 normal, no S3, no S4, no heaves, no rub and no murmur. Abdomen: Soft, nontender, bowel sounds normal, no palpable organomegaly, no bruits. Extremities: 1+ leg peripheral edema right > left with mild erythema Neuro: Oriented to person, place and time, alert, cooperative, gait coordinated. CARDIOVASCULAR MEDICINE TESTING: No Cardiovascular testing perfomed today. I have personally reviewed the PATIENT: Name: MRS. YANI GERARD Age: 81 years Gender: F CONCLUSIONS: 1. SPECT Perfusion Study: Normal. 2. There is no scintigraphic evidence for inducible ischemia. 3. No evidence of scarred myocardium. 4. Left ventricle is small. The left ventricle systolic function is normal. 5. Right ventricle is normal in size. The right ventricle systolic function is normal. 6. This is a low risk scan. Gated Stress FBP LVEF % 67 IMPRESSION: Ms. Gerard is a 82 year old female with leg edema and shortness of breath , wt gain suggestive of diastolic heart failure recent onset. Possible DVT as did drive from [place]. Will resume lasix 20mgdaily, obtain echo and lower extremity venous duplex . 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 Possible DVT as did drive from [place]. Will resume lasix 20mg daily, obtain echo and lower extremity venous duplex . -knee high compression stocking (R06.02) SOB (shortness of breath) Plan: uggestive of diastolic heart failure recent onset. Possible DVT as did drive from [place]. Will resume lasix 20mg daily, obtain echo and lower extremity venous duplex . CONTACT INFORMATION: MD Kyle Neff and Melony [facility] Department of Cardiovascular Medicine Heart [facility] [address] [place] [address] [address] [place] [address] documented in this encounterWayne Hospital02-06-2023 Miscellaneous Notes* Telephone Encounter - Katie Paz - 12/05/2022 3:35 PM EST LV: 10/11/22 FV: None Patient would like you to know that glasses aren't working. What should her next steps be? Ren Marcano MD filed at 10/11/2022 4:50 PM Status: Signed Reviewed Epic, chart, labs, imaging studies. Mild divergence insufficiency with narrow horizontal fusional range. Reviewed MRI images. Microvascaular diease. No evidence for cause of diplopia. As right gaze is her most difficult for fusion she prefers the prism 2 KARMA right eye rather than in the left lens. Rewrote prism Rx 2. Presbyopia. Rx given for single vision lens readers. No prism I have confirmed and edited as necessary the relevant ophthalmic history, ROS, and the neuro exam findings as obtained by others. I have seen and examined Yani Montes Moustapha. I have discussed the case and the management of this patient's care with the Resident/Fellow, if applicable. I also have reviewed and agree with the assessment and plan as stated above and agree withall of its relevant components.The nature of the patient's eye disease, its relationship to systemic health, and its prognosis have been explained to the patient/family. The treatment options/risks/benefits have been discussed. Questions answered. Ren Maracno MD documented in this encounterWayne Hospital12-16-2022 Miscellaneous Notes* Telephone Encounter - Beto Spivey - 10/14/2022 3:13 PM EST Patient phones requesting refills as follows: Requested Prescriptions Pending Prescriptions Disp Refills evolocumab (REPATHA SURECLICK) 140 mg/mL pen injector 6 Each 3 Sig: Inject 140 mg subcutaneously as directed. Inject 1 pen subcu every 2 wks Please review and advise. Beto Spivey documented in this encounterWayne Hospital12-13-2022 Miscellaneous Notes* Telephone Encounter - Amarilys eRsendez Ma - 10/11/2022 11:45 AM EST Patient phones requesting refills as follows: Requested Prescriptions Pending Prescriptions Disp Refills amLODIPine (NORVASC) 10 mg tablet 90 tablet 3 Sig: Take 1 tablet by mouth once daily. isosorbide mononitrate ER (IMDUR) 30 mg 24 hr tablet 90 tablet 3 Sig: Take 1 tablet by mouth once daily. losartan (COZAAR) 25 mg tablet 180 tablet 3 Sig: Take 2 tablets by mouth twice daily. Magnesium 200 mg tab 180 tablet 3 Sig: Take 2 tablets by mouth once daily. ezetimibe (ZETIA) 10 mg tablet 90 tablet 3 Sig: Take 1 tablet by mouth once daily. Please review and advise. Amarilys Resendez Ma documented in this encounterWayne Hospital11-07-2022 Miscellaneous Notes* Telephone Encounter - Jonna Bonds Pss - 09/05/2022 11:04 AM EST Patient called stating she saw Dr Burks in 2020 for Vertigo and because the crystals in her ear had . Per patient he sent her to do a procedure/therapy which helped for a year. However,she is now having bad vertigo again and she thinks the crystals have again. She wants to know if he can order the procedure/therapy again. Please call patient at [phone] documented in this [facility]10-10-2022 NoteOrthopaedic Surgery Outpatient Visit Note Encounter Date: 08/08/2022 Patient: Yani Gerard 1940 PCP No primary care provider on file. CC: Chief Complaint Patient presents with Right Hip - Follow-up HPI: Yani Gerard is a 82 y.o. female here for a follow up on the right hip that was revised on 01/10/[address] Morse. Patient reports continued progression in PT but as of recent has had some issues with stairs in her aquatic PT. She is afebrile and the shoe lift has made a big difference for her walking. She is afebrile and ambulation with no assistive devices. Past Medical History: Past Medical History: Diagnosis Date High cholesterol Hypertension Past Surgical History: Procedure Laterality Date BACK SURGERY Medications: Current Outpatient Medications: acetaminophen (Tylenol) 500 mg tablet, Pain Relief Extra Strength 500 mg tablet TAKE 2 TABLETS BY MOUTH THREE TIMES DAILY, Disp: , Rfl: amLODIPine (Norvasc) 10 mg tablet, Take 1 tablet by mouth in the morning., Disp: , Rfl: aspirin 81 mg capsule, 1 (one) time each day at the same time., Disp: , Rfl: calcium citrate (Calcitrate) 200 mg (950 mg) tablet, calcium citrate 200 mg (950 mg) tablet TAKE THREE TABLETS BY MOUTH TWICE DAILY, Disp: , Rfl: cholecalciferol (Vitamin D-3) 125 MCG (5000 UT) capsule, cholecalciferol (vitamin D3) 125 mcg (5,000 unit) capsule TAKE ONE Capsule BY MOUTH EVERY DAY, Disp: , Rfl: clonazePAM (KlonoPIN) 0.5 mg tablet, clonazepam 0.5 mg tablet TAKE 1 TABLET BY MOUTH ONCE DAILY AT BEDTIME, Disp: , Rfl: evolocumab (Repatha SureClick) 140 mg/mL pen injector, Repatha SureClick 140 mg/mL subcutaneous pen injector INJECT 140mg EVERY 2 (TWO) weeks, Disp: , Rfl: ezetimibe (Zetia) 10 mg tablet, ezetimibe 10 mg tablet TAKE 1 TABLET BY MOUTH EVERY DAY, Disp: , Rfl: ibuprofen 800 mg tablet, Take 800 mg by mouth every 6 (six) hours if needed for mild pain (1-3 pain score)., Disp: , Rfl: isosorbide mononitrate ER (Imdur) 30 mg 24 hr tablet, Take 1 tablet by mouth in the morning., Disp: , Rfl: levothyroxine (Synthroid, Levoxyl) 50 mcg tablet, Synthroid 50 mcg tablet, Disp: , Rfl: losartan (Cozaar) 50 mg tablet, losartan 50 mg tablet, Disp: , Rfl: magnesium oxide (Mag-Ox) 400 mg (241.3 mg magnesium) tablet, magnesium oxide 400 mg (241.3 mg magnesium) tablet TAKE 1 TABLET BY MOUTH EVERY DAY, Disp: , Rfl: metoprolol succinate XL (Toprol-XL) 25 mg 24 hr tablet, metoprolol succinate ER 25 mg tablet,extended release 24 hr, Disp: , Rfl: nitroglycerin (Nitrostat) 0.4 mg SL tablet, See administration instructions., Disp: , Rfl: pramipexole (Mirapex) 0.5 mg tablet, pramipexole 0.5 mg tablet TAKE 1 TABLET AT BEDTIME, Disp: , Rfl: ranolazine (Ranexa) 1,000 mg 12 hr tablet, Take 1 tablet by mouth every 12 (twelve) hours., Disp: , Rfl: ascorbic acid (Vitamin C) 500 mg tablet, every 12 (twelve) hours., Disp: , Rfl: cefdinir (Omnicef) 300 mg capsule, cefdinir 300 mg capsule TAKE 1 CAPSULE BY MOUTH EVERY 12 HOURS, Disp: , Rfl: ciprofloxacin (Cipro) 250 mg tablet, ciprofloxacin 250 mg tablet, Disp: , Rfl: clopidogrel (Plavix) 75 mg tablet, clopidogrel 75 mg tablet TAKE 1 TABLET BY MOUTH EVERY DAY, Disp: , Rfl: cyclobenzaprine (Flexeril) 5 mg tablet, cyclobenzaprine 5 mg tablet TAKE ONE TABLET BY MOUTH THREE TIMES DAILY NEEDED, Disp: , Rfl: losartan (Cozaar) 25 mg tablet, losartan 25 mg tablet TAKE 1 TABLET BY MOUTH TWICE DAILY, Disp: , Rfl: magnesium oxide,aspartate,citr 400 mg magnesium capsule, 1 (one) time each day at the same time., Disp: , Rfl: nitrofurantoin, macrocrystal-monohydrate, (Macrobid) 100 mg capsule, nitrofurantoin monohydrate/macrocrystals 100 mg capsule TAKE 1 CAPSULE BY MOUTH TWICE DAILY for 7 days, Disp: , Rfl: omeprazole (PriLOSEC) [address] capsule, omeprazole 40 mg capsule,delayed release TAKE 1 CAPSULE BY MOUTH ONCE DAILY 30 MINUTES before morning meal, Disp: , Rfl: ondansetron ODT (Zofran-ODT) 4 mg disintegrating tablet, ondansetron 4 mg disintegrating tablet TAKE ONE Tablet BY MOUTH THREE TIMES DAILY NEEDED, Disp: , Rfl: oxybutynin XL (Ditropan-XL) 5 mg 24 hr tablet, oxybutynin chloride ER 5 mg tablet,extended release 24 hr TAKE 1 TABLET BY MOUTH DAILY, Disp: , Rfl: phenazopyridine (Pyridium) 100 mg tablet, phenazopyridine 100 mg tablet TAKE 1 TABLET AFTER MEALS BY MOUTH THREE TIMES DAILY, Disp: , Rfl: phenazopyridine (Pyridium) 200 mg tablet, phenazopyridine 200 mg tablet TAKE 1 TABLET BY MOUTH THREE TIMES DAILY after meals, Disp: , Rfl: polyethylene glycol (Glycolax) 17 gram/dose powder, polyethylene glycol 3350 17 gram oral powder packet mix and TAKE 1 PACKET EVERY DAY FOR 14 DAYS, Disp: , Rfl: polyethylene glycol-electrolytes (Nulytely) 420 gram solution, peg-electrolyte solution 420 gram oral solution USE DIRECTED, Disp: , Rfl: potassium chloride CR (K-Tab) 20 mEq ER tablet, Take 20 mEq by mouth., Disp: , Rfl: triamcinolone (Kenalog (more content not included)...[facility]09-12-2022 History of Present illness Narrative* Renata Sandoval MD - 07/11/2022 9:32 AM EDT Patient with history of repeated cerumen impactions. Has hearing loss. Exam-cerumen impaction bilateral PROCEDURE:Removal of Impacted cerumen. Ear(s) cleaned using the operating microscope/magnification with ear curette requiring physician expertise.etelvina Renata Sandoval MD documented in this encounterWayne Hospital09-12-2022 Nurse Note* Huey Lopez Ma - 07/11/2022 8:04 AM EDT Tobacco Use: Never Was smoking cessation packet given? N/A - Patient is a non-smoker or quit >1 year ago. Was a referral initiated?N/A Patient is a non-smoker documented in this encounterWayne Hospital08-22-2022 Miscellaneous Notes* Telephone Encounter - Jayden Burks MD - 06/20/2022 6:29 PM EDT The MRI scan of the brain is unremarkable and fails to demonstrate an etiology for the intermittentdouble vision. Jayden Burks MD * Telephone Encounter - Donna Neville RN - 06/20/2022 2:39 PM EDT I have already forwarded this message to the provider, but it has only been an hour and I have not received feedback yet. I will call her once Dr. Burks reviews the MRI. * Telephone Encounter - Jonna Driver - 06/20/2022 2:34 PM EDT Patient called again for MRI results. She is still concerned about her double vision, and wants to figure out the cause. Please give here a call at [phone] * Telephone Encounter - Suresh Hartman - 06/17/2022 2:33 PM EDT Patient called today to find out the results of her MRI. States that she is very concerned. Ph.[phone]. documented in this encounterWayne Hospital08-22-2022 History of Present illness Narrative* Nikolas Alas - 06/20/2022 6:09 PM EDT [id number] Eva Fischer Coordinator Nikolas Alas RN Post EOS Phone Visit I spoke with the patient and she reports no change in health or medications; intermittent angina and hip pain remain ongooing. I thanked her again for her participation in the study. documented in this encounterWayne Hospital08-02-2022 Miscellaneous Notes* Telephone Encounter - Fiona Harkins MD - 05/31/2022 4:15 PM EDT Nuclear stress test of heart is normal. cont rx Fiona Harkins MD documented in this encounterWayne Hospital08-01-2022 History of Present illness Narrative* RT Ventura(R) - 05/30/2022 1:02 PM EDT RADIOLOGY SERVICE PROGRESS NOTE SERVICE DATE: 05/30/2022 SERVICE TIME: 1:02 PM PATIENT IDENTITY VERIFICATION COMPLETED USING TWO (2) STANDARD IDENTIFIERS: Name and Date of confirmed by patient verbally FALL SCREENING: Has the patient had 2 falls in the last year or 1 fall with injury or currently using an Ambulatory Assistive Device (Walker, Cane, Wheelchair, Crutches, etc.)? No PATIENT GENDER DATA: .female : No ALLERGIES: Reviewed and unchanged MEDICATIONS REVIEWED: Yes PATIENT RELEVANT IMPLANT DATA REVIEWED: Not Applicable IV SITE: Ambulatory: A peripheral IV was started in the Right antecubital site with a Angio cath: 22 gauge. POST EXAM PIV STATUS: Discontinued PROCEDURE TYPE: NM Stress: 12.5mCi [id number] was administered IV for Rest Imaging at 1300 by RT Ventura(R). 30.4 mCi [id number] was administered IV for Stress Imaging at 1400 by RT Ventura(R). PATIENT DISCHARGED TO: Ambulatory patient, left [place] department area. A Diagnostic radioactive procedure has taken place, with no further precautions necessary other than routine body substance precautions. More information regarding radiation safety can be found usingthis link: [email or web address] SIGNATURE: RT Ventura(R) PATIENT NAME: Yani Gerard DATE: May 30, 2022 TIME: 1:02 PM PAGER/CONTACT #: documented in this encounterWayne Hospital07-27-2022 Miscellaneous Notes* Telephone Encounter - Chrystal Gómez RN - 05/25/2022 9:27 AM EDT Spoke with patient and informed that per Dr. Burks, labs are ok and that he is recommending MRI of the Brain as the next step. She verbalized understanding and phone number provided for scheduling. * Telephone Encounter - Jayden Burks MD - 05/24/2022 5:39 PM EDT Order filed. Jayden Burks MD * Telephone Encounter - Chrystal Gómez RN - 05/24/2022 9:27 AM EDT Order for MRI Brain placed, pended and routed for review/filing. * Telephone Encounter - Jayden Burks MD - 05/23/2022 6:25 PM EDT Laboratory results are OK. Would recommend MRI Brain. Jayden Burks MD * Telephone Encounter - Flaquita Tomlinson - 05/20/2022 11:00 AM EDT Results for HECTOR GERARD ( ) as of 05/20/2022 10:58 Ref. Range 04/11/2022 12:51 Acetylcholine Recept/Blocking, Qual Latest Ref Range: Negative Negative Acetylcholine Recept/Blocking Latest Ref Range: <21 % Inhibition <13 Acetylcholine Recept/Binding, Qual Latest Ref Range: Negative Negative Acetylcholine Recept/Binding Latest Ref Range: <0.21 nmol/L <0.02 Acetylcholine Recept/Modulating Latest Ref Range: <=45 % 0 * Telephone Encounter - Meka Moran - 05/20/2022 9:17 AM EDT Patient at [phone] is requesting a call back RE: lab results and what is the next step? documented in this encounterWayne Hospital07-22-2022 History of Present illness Narrative* Nikolas Alas - 05/20/2022 9:37 AM EDT [facility] [id number] Eva Fischer Coordinator Nikolas Alas RN End of Study visit I met with the patient for the Clear outcomes study. All study related procedures completed per protocol. Reviewed Medical and Cardiac History, Surgical history, and medications Yes Has the patient had any changes in her health since the last study visit? no Intermittent angina continues: treated with Repatha, related to vigorous activity, resolves either spontaneously or with 1-2 NTG. Pre-existing left hip pain continued; 01/10/22 right hip replacement revision performed at outside hospital; pain improved but not resolved. ANY problems or history of bleeding?No Reviewed current medications and allergiesYes Vital signs obtained BP right Method used: automatic Wt obtained after voiding.YES Physical completed YES 12 lead ECG after resting supine for 10 minutes YES Fasting Labs drawn at 10:30 urinalysis YES 10:40 Is subject fasting for 10 hours or greater YES Medication compliance: N/A, discontinued study medication after PCI [id number]. Patient contact information reaffirmed and updated. YES Coordinator contact information provided to the patient.YES Education provided: YES see patient instructions. Materials dispensed: YES - newsletters #21, 22 & 23, cooler Final Phone follow up scheduled. documented in this encounterWayne Hospital07-22-2022 History of Present illness Narrative* Fiona Harkins MD - 05/20/2022 9:31 AM EDT Images from the original note were not included. [facility] Department of Cardiovascular Medicine [facility] OUTPATIENT VISIT DATE May 20, 2022 OUTPATIENT VISIT TYPE Established Patient PRIMARY CARE PHYSICIAN: Kyle Amin [address] [place] [address] REFERRING PHYSICIAN: Kyle Amin [address] [facility] [id number] CHIEF COMPLAINT: followup cad HISTORY OF PRESENT ILLNESS: Ms. Gerard is a 81 year old female who presents today with 2019 LAD stent and severe non dominant RCA stenosis being managed medically. She has rare chest heaviness, last episode 5 weeks ago, some associated nausea with low heart rate and low BP then. She ruled for [place] then at [facility]. She has shortness of breath with exertion climbing 13 steps which has gotten worse over the past 6 months. She had hip revision surgery that she claims was exteremly painful over the right hip. She denies orthopnea, cough, edema, palpitations, PND, lightheadedness or syncope. PROBLEM LIST: Specialty Problems Cardiology Problems HTN (hypertension) Hyperlipidemia CAD (coronary artery disease) PAST MEDICAL HISTORY Diagnosis Date Benign paroxysmal positional vertigo of right ear 10/03/2018 CAD (coronary artery disease) 03/28/2019 LAD proximal stent , RCA nondominant bifurcating severe disease small medical rx Dizziness 09/24/2018 Hypertension Lumbar back pain with radiculopathy affecting left lower extremity 03/21/2019 PAST SURGICAL HISTORY Procedure Laterality Date CC CORONARY STENT 03/28/2019 LAD prox stent , RCA nondominant bifurcating severe disease small medical rx , [facility] SOCIAL HISTORY Social History Tobacco Use Smoking status: Never Smoker Smokeless tobacco: Never Used Substance Use Topics Alcohol use: Yes Comment: wine occas Drug use: No No family history on file. ALLERGIES: ALLERGIES Allergen Reactions Zetia [Ezetimibe] Myalgia Severe muscle pain fingers and legs, discontinued after 5 doses [id number]-[id number] Red* Other: See Comments Sulfa (Sulfonamide * Rash MEDICATIONS: ezetimibe (ZETIA) 10 mg tablet Take 10 mg by mouth once daily. meloxicam (MOBIC) 15 mg tablet Take 1 tablet by mouth once daily. pramipexole (MIRAPEX) 0.5 mg tablet Take 0.5 mg by mouth once daily. evolocumab (REPATHA SURECLICK) 140 mg/mL pnij Inject 1 Pen subcutaneously as directed. Inject 1 pensubcu every 2 wks isosorbide mononitrate ER (IMDUR) 30 mg 24 hr tablet Take 30 mg by mouth once daily. ranolazine SR (RANEXA) 1,000 mg tab ER 12 hr Take 1 tablet by mouth twice daily. hydrALAZINE (APRESOLINE) 25 mg tablet Take 25 mg by mouth twice daily. clopidogrel bisulfate (PLAVIX ORAL) Take 75 mg by mouth once daily. metoprolol succinate ER (TOPROL XL) 50 mg 24 hr tablet Take 1 tablet by mouth once daily. losartan (COZAAR) 25 mg tablet Take 25 mg by mouth twice daily. Magnesium 200 mg tab Take 400 mg by mouth once daily. POTASSIUM (POTASSIMIN ORAL) Take 20 mEq by mouth. levothyroxine (SYNTHROID) 75 mcg tablet Take 1 tablet by mouth once daily. amLODIPine (NORVASC) 10 mg tablet Take 1 tablet by mouth once daily. REVIEW OF SYSTEMS: GENERAL: Negative for: Weight loss or gain, Fever or Chills, Weakness and Sleep difficulties. HEENT: Negative for: Headache, Impaired Vision, Glasses, Hearing Impairment, Ringing in Ears, Nosebleeds, Poor dental care, Bleeding Gums, Dentures NECK: Negative for: Swelling, Pain, Stiffness RESPIRATORY: Negative for: Cough, Blood in Sputum, Shortness of breath, Wheezing, Apnea GASTROINTESTINAL: Negative for: Trouble swallowing, Heartburn, Change in bowel habits, Blood in stool, Dark black stools MUSCULOSKELETAL: Negative for: Muscle or joint pain, Stiffness , Joint swelling NEUROLOGIC/PSYCHIATRIC: Negative for: Weakness, Paralysis, Numbness, Tingling, Tremor, Nervousness,Depressed mood, Memory loss SKIN: Negative for: Rashes, Itching HEMATOLOGICAL/LYMPHATIC: Negative for: Easy bruising , Easy bleeding ENDOCRINE: Negative for: Heat or cold intolerance, Excessive sweating, Frequent urination, Frequentthirst I personally interviewed, confirmed and edited the above information if obtained by others. PHYSICAL EXAMINATION: BP 138/58 Pulse 67 Ht 157.5 cm (5' 2 ) Wt 69.4 kg (153 lb) BMI 27.98 kg/m General: Well appearing, in no acute distress. Skin: No clubbing, no cyanosis. Eyes: Extra ocular movements intact Oropharynx: Teeth in good repair. Neck: No jugular venous distention, no carotid bruits, carotids have a normal upstroke, no palpablethyromegaly. Lungs: Clear to auscultation bilaterally, no wheezing or rhonchi. Heart: Regular rhythm, PMI not displaced, S1, S2 normal, no S3, no S4, no heaves, no rub and no murmur. Abdomen: Soft, nontender, bowel sounds normal, no palpable organomegaly, no bruits. Extremities: No peripheral edema . Neuro: Oriented to person, place and time, alert, cooperative, gait coordinated. CARDIOVASCULAR MEDICINE TESTING: Electrocardiogram: Sinus bradycardai I have personally reviewed the Electrocardiogram. IMPRESSION: Ms. Gerard is a 81 year old female with atypical chest pain and shortness of breath with exertion,2019 LAD stent and severe non dominant RCA stenosis being managed medically. Possible angina equivalent vs pulmonary process. CT lung as per PCP . Will obtain lexiscan nuclear stress test as unable to walk on treadmill due to hip surgery . 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 She states that for the last few to several months on a persistent basis she notices primarily horizontal diplopia to right lateral gaze and more recently in the neutral position. This does not fluctuate or occur at a particular time of day. There has been no ptosis and she denies any other associated symptoms. She reports that she saw an network technology instructor and no ocular pathology to explain the symptoms was forthcoming. Today on examination she is awake, alert, pleasant, cooperative and coherent. Cranial Nerves: II visual mario full III IV extraocular movements normal VII muscles of facial expression normal in power bilaterally Motor System: The tendon reflexes are symmetric. Other Observations: Sustained superior gaze from the neutral position for one minute failed to result in any diplopia or ptosis. Likewise sustained lateral gaze to her right for one minute failed to elicit any double vision. In summary, the exact etiology of her difficulty is uncertain. After further consideration we will refer her for acetylcholine receptor autoantibodies. She is to contact us for the results and follow-up will be on an as-needed basis. documented in this encounterWayne [facility]03-16-[facility]22 NoteMR#: [id number] [facility] Pt. Name: Yani Gerard Admitted: 01/10/2022 Discharged: Date of : 1940 Physician: Guero Morse M.D. DISCHARGE SUMMARY DISCHARGE SUMMARY ADMITTING DIAGNOSIS: Right total hip arthroplasty loosening. PROCEDURE: Right total hip arthroplasty revision. CONSULTATIONS: Cardiology HOSPITAL COURSE: Operative course was unremarkable. Patient was taken to the recovery room and then the floor. Perioperative antibiotics were administered. Deep venous thrombosis prophylaxis was instituted. The patient remained neurovascularly intact distally throughout their hospital course. Dressing was changed and incision was clean, dry, and intact. Patient was discharged in stable condition after being cleared by physical/occupational therapy and was afebrile at the time. During her stat she reported chest pressure along with head and neck pressure. Troponins and EKG ordered and unremarkable. Cardiology consulted. DISCHARGE PLAN: 1. Weight bearing as tolerated 2. Pain control 3. DVT PPx 4. Postop Abx Reviewed By: Fidel Mayfield MD 01/12/2022 11:17 A Electronically Signed by: Guero Morse M.D. 01/15/2022 07:42 P Guero Morse M.D. I have reviewed this discharge summary and confirmed the resident's documentation. Please note that there may be additional documentation from me. Date Dict: 01/12/2022/11:15 Jyoti/Fidel Mayfield MD Date Trans: 01/12/2022 11:15 Jyoti/ [id number] cc: Kyle Amin M.D. [address] [place], [place] [id number] History of Past illness Narrative* Problem Noted Date Resolved Date Lumbar back pain with radicu lopathy affecting left lower extremity 03/21/2019 05/20/2021 Benign paroxysmal positional vertigo of right ea r 10/03/2018 05/20/2021 Dizziness 09/24/2018 05/20/2021 documented as of this encounter (statuses as of 04/11/2022) [facility] of [facility] Narrative* Problem Noted Date Resolved Date Lumbar back pain with radicu lopathy affecting left lower extremity 03/21/2019 05/20/2021 Benign paroxysmal positional vertigo of right ea r 10/03/2018 05/20/2021 Dizziness 09/24/2018 05/20/2021 documented as of this encounter (statuses as of 05/20/2022) [facility] Narrative* Problem Noted Date Resolved Date Lumbar back pain with radicu lopathy affecting left lower extremity 03/21/2019 05/20/2021 Benign paroxysmal positional vertigo of right ea r 10/03/2018 05/20/2021 Dizziness 09/24/2018 05/20/2021 documented as of this encounter (statuses as of 05/20/2022) [facility] Narrative* Problem Noted Date Resolved Date Lumbar back pain with radicu lopathy affecting left lower extremity 03/21/2019 05/20/2021 Benign paroxysmal positional vertigo of right ea r 10/03/2018 05/20/2021 Dizziness 09/24/2018 05/20/2021 documented as of this encounter (statuses as of 05/25/2022) [facility] Narrative* Problem Noted Date Resolved Date Lumbar back pain with radicu lopathy affecting left lower extremity 03/21/2019 05/20/2021 Benign paroxysmal positional vertigo of right ea r 10/03/2018 05/20/2021 Dizziness 09/24/2018 05/20/2021 documented as of this encounter (statuses as of 05/30/2022) [facility] Narrative* Problem Noted Date Resolved Date Lumbar back pain with radicu lopathy affecting left lower extremity 03/21/2019 05/20/2021 Benign paroxysmal positional vertigo of right ea r 10/03/2018 05/20/2021 Dizziness 09/24/2018 05/20/2021 documented as of this encounter (statuses as of 06/01/2022) [facility] Narrative* Problem Noted Date Resolved Date Lumbar back pain with radicu lopathy affecting left lower extremity 03/21/2019 05/20/2021 Benign paroxysmal positional vertigo of right ea r 10/03/2018 05/20/2021 Dizziness 09/24/2018 05/20/2021 documented as of this encounter (statuses as of 06/20/2022) [facility] Narrative* Problem Noted Date Resolved Date Lumbar back pain with radicu lopathy affecting left lower extremity 03/21/2019 05/20/2021 Benign paroxysmal positional vertigo of right ea r 10/03/2018 05/20/2021 Dizziness 09/24/2018 05/20/2021 documented as of this encounter (statuses as of 07/11/2022) [facility] Narrative* Problem Noted Date Resolved Date Lumbar back pain with radicu lopathy affecting left lower extremity 03/21/2019 05/20/2021 Benign paroxysmal positional vertigo of right ea r 10/03/2018 05/20/2021 Dizziness 09/24/2018 05/20/2021 documented as of this encounter (statuses as of 09/07/2022) [facility] Narrative* Problem Noted Date Resolved Date Lumbar back pain with radicu lopathy affecting left lower extremity 03/21/2019 05/20/2021 Benign paroxysmal positional vertigo of right ea r 10/03/2018 05/20/2021 Dizziness 09/24/2018 05/20/2021 documented as of this encounter (statuses as of 10/12/2022) [facility]* Problem Noted Date Resolved Date Lumbar back pain with radicu lopathy affecting left lower extremity 03/21/2019 05/20/2021 Benign paroxysmal positional vertigo of right ea r 10/03/2018 05/20/2021 Dizziness 09/24/2018 05/20/2021 documented as of this encounter (statuses as of 10/12/2022) [facility]* Problem Noted Date Resolved Date Lumbar back pain with radicu lopathy affecting left lower extremity 03/21/2019 05/20/2021 Benign paroxysmal positional vertigo of right ea r 10/03/2018 05/20/2021 Dizziness 09/24/2018 05/20/2021 documented as of this encounter (statuses as of 10/14/2022) [facility]* Problem Noted Date Resolved Date Lumbar back pain with radicu lopathy affecting left lower extremity 03/21/2019 05/20/2021 Benign paroxysmal positional vertigo of right ea r 10/03/2018 05/20/2021 Dizziness 09/24/2018 05/20/2021 documented as of this encounter (statuses as of 12/14/2022) [facility]* Problem Noted Date Resolved Date Lumbar back pain with radicu lopathy affecting left lower extremity 03/21/2019 05/20/2021 Benign paroxysmal positional vertigo of right ea r 10/03/2018 05/20/2021 Dizziness 09/24/2018 05/20/2021 documented as of this encounter (statuses as of 12/15/2022) [facility]* Problem Noted Date Resolved Date Lumbar back pain with radicu lopathy affecting left lower extremity 03/21/2019 05/20/2021 Benign paroxysmal positional vertigo of right ea r 10/03/2018 05/20/2021 Dizziness 09/24/2018 05/20/2021 documented as of this encounter (statuses as of 01/03/2023) [facility]* Problem Noted Date Resolved Date Lumbar back pain with radicu lopathy affecting left lower extremity 03/21/2019 05/20/2021 Benign paroxysmal positional vertigo of right ea r 10/03/2018 05/20/2021 Dizziness 09/24/2018 05/20/2021 documented as of this encounter (statuses as of 02/07/2023) [facility]* Problem Noted Date Resolved Date Lumbar back pain with radicu lopathy affecting left lower extremity 03/21/2019 05/20/2021 Benign paroxysmal positional vertigo of right ea r 10/03/2018 05/20/2021 Dizziness 09/24/2018 05/20/2021 documented as of this encounter (statuses as of 04/19/2023) [facility]* Problem Noted Date Resolved Date Lumbar back pain with radicu lopathy affecting left lower extremity 03/21/2019 05/20/2021 Benign paroxysmal positional vertigo of right ea r 10/03/2018 05/20/2021 Dizziness 09/24/2018 05/20/2021 documented as of this encounter (statuses as of 05/01/2023) [facility]* Problem Noted Date Diagnosed Date Resolved Date Lumbar back pain with radicu lopathy affecting left lower extremity 03/21/2019 05/20/2021 Benign paroxysmal positional vertigo of right ear 10/03/2018 05/20/2021 Dizziness 09/24/2018 05/20/2021 documented as of this encounter (statuses as of 06/13/2023) [facility]* Problem Noted Date Diagnosed Date Resolved Date Lumbar back pain with radicu lopathy affecting left lower extremity 03/21/2019 05/20/2021 Benign paroxysmal positional vertigo of right ear 10/03/2018 05/20/2021 Dizziness 09/24/2018 05/20/2021 documented as of this encounter (statuses as of 06/20/2023) [facility]* Problem Noted Date Diagnosed Date Resolved Date Lumbar back pain with radicu lopathy affecting left lower extremity 03/21/2019 05/20/2021 Benign paroxysmal positional vertigo of right ear 10/03/2018 05/20/2021 Dizziness 09/24/2018 05/20/2021 documented as of this encounter (statuses as of 09/13/2023) [facility]* Problem Noted Date Diagnosed Date Resolved Date Lumbar back pain with radicu lopathy affecting left lower extremity 03/21/2019 05/20/2021 Benign paroxysmal positional vertigo of right ear 10/03/2018 05/20/2021 Dizziness 09/24/2018 05/20/2021 documented as of this encounter (statuses as of 10/20/2023) [facility]* Problem Noted Date Diagnosed Date Resolved Date Lumbar back pain with radicu lopathy affecting left lower extremity 03/21/2019 05/20/2021 Benign paroxysmal positional vertigo of right ear 10/03/2018 05/20/2021 Dizziness 09/24/2018 05/20/2021 documented as of this encounter (statuses as of 11/30/2023) [facility]* Problem Noted Date Diagnosed Date Resolved Date Lumbar back pain with radicu lopathy affecting left lower extremity 03/21/2019 05/20/2021 Benign paroxysmal positional vertigo of right ear 10/03/2018 05/20/2021 Dizziness 09/24/2018 05/20/2021 documented as of this encounter (statuses as of 12/02/2023) [facility]* Problem Noted Date Diagnosed Date Resolved Date Lumbar back pain with radicu lopathy affecting left lower extremity 03/21/2019 05/20/2021 Benign paroxysmal positional vertigo of right ear 10/03/2018 05/20/2021 Dizziness 09/24/2018 05/20/2021 documented as of this encounter (statuses as of 12/09/2023) [facility] Future Appointments Appointment Date:02/18/2022 08:45:00 AM Scheduled Provider: Location:[facility] Physical Tx Appointment Type:PT Eval (FT) Future Scheduled Tests Laboratory* CBC w/ Auto Diff 02/23/22 * CBC w/ Auto Diff 06/25/22 * CBC w/ Auto Diff 10/25/22 * Ferritin 02/23/22 * Ferritin 06/25/22 * 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, unspecified vessel or lesion type (HCC) [facility]* Diagnosis Clear Outcomes Study, PI: Eva Fischer MD- Primary [facility]* Diagnosis Clear Outcomes Study, PI: Eva Fischer MD 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, unspecified vessel or lesion type (HCC) [facility] Diagnosis Hearing loss of both ears due to cerumen impaction- Primary [facility]* Diagnosis Vertigo- Primary Dizziness and giddiness [facility]* Diagnosis Research study patient- Primary [facility]* Diagnosis 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, unspecified vessel or lesion type (HCC)- Primary Edema leg Edema SOB (shortness of breath) Shortness of breath [facility]No assessment information [facility] Work Phone: Evaluation note* Diagnosis Memory loss- Primary Diplopia [facility]* Diagnosis Low vitamin B12 level- Primary Other B-complex deficiencies [facility]* Diagnosis 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, unspecified vessel or lesion type (HCC)- Primary Unstable angina (HCC) Intermediate coronary syndrome [facility]* Diagnosis Onset Date Resolution Status Abnormal rate of speech acut e ASHD (arteriosclerotic heart disease) acute Hypercholesteremia acute Hypertension acute Left-sided weakness acute Stroke-like symptoms acute [facility] Work Phone: Evaluation note* Diagnosis Onset Date Resolution Status Abnormal rate of speech acut e ASHD (arteriosclerotic heart disease) acute Hypercholesteremia acute Hypertension acute Left-sided weakness acute Stroke-like symptoms acute Abnormal rate of speech acut e Brain TIA acute Hypercholesteremia acute Hypertension acute [facility] Work Phone: Evaluation note* Diagnosis Onset Date Resolution Status ASHD (arteriosclerotic heart disease) acute Left-sided weakness acute Stroke-like symptoms acute Abnormal rate of speech reso lved Brain TIA acute Abnormal rate of speech reso lved [facility] Work Phone: Evaluation note* Diagnosis Onset Date Resolution Status ASHD (arteriosclerotic heart disease) acute Hypercholesteremia acute Hypertension acute Left-sided weakness acute Stroke-like symptoms acute Abnormal rate of speech reso lved Brain TIA acute Hypercholesteremia acute Hypertension acute Abnormal rate of speech reso lved Brain TIA acute Hypercholesteremia acute Hypertension acute Stented coronary artery acut e Stroke acute Stroke-like symptoms acute [facility] Work Phone: Evaluation note* Diagnosis Stroke-like symptoms- Primary Other symptoms involving nervous and musculoskeletal systems [facility]* Diagnosis Tremor- Primary Abnormal involuntary movements Alteration of consciousness Other alteration of consciousness Speech disturbance, unspecified type [facility]* Diagnosis Tremor- Primary Abnormal involuntary movements Speech disturbance, unspecified type [facility]* Diagnosis Tremor, unspecified 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 [facility]* Diagnosis 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 Tremor, unspecified [facility]* Diagnosis 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 [facility]* Diagnosis Tremor, unspecified- Primary 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 [facility]* Diagnosis Paroxysmal supraventricular tachycardia (HCC)- Primary Paroxysmal supraventricular tachycardia Encounter for screening for cardiovascular disorders Screening for other and unspecified cardiovascular conditions Leg swelling Swelling of limb SOB (shortness of breath) Shortness of breath Coronary artery disease involving bad river [place] coronary artery of bad river band heart without angina pectoris Primary hypertension Unspecified essential hypertension Other hyperlipidemia Pulmonary hypertension (HCC) Other chronic pulmonary heart diseases Atherosclerosis of aorta (HCC) Atherosclerosis of aorta [facility]* Diagnosis 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 Vertigo Dizziness and giddiness [facility]* Diagnosis Tremor, unspecified- Primary 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 [facility] Diagnosis Encounter for screening for cardiovascular disorders Screening for other and unspecified cardiovascular conditions [facility]* Diagnosis SOB (shortness of breath)- Primary Shortness of breath [facility]* Diagnosis Coronary artery disease involving bad [place] coronary artery of bad [place] heart without angina pectoris- Primary [facility] Diagnosis SOB (shortness of breath) Shortness of breath [facility]* Diagnosis 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 [facility] Diagnosis Hypokalemia- Primary Hypopotassemia documented [facility]* Diagnosis Balance problem- Primary Other symptoms involving nervous and musculoskeletal systems Vertigo Dizziness and giddiness Benign paroxysmal positional vertigo of left ear documented [facility]* Diagnosis Dizziness- Primary Dizziness and giddiness Balance problem Other symptoms involving nervous and musculoskeletal systems Benign paroxysmal positional vertigo of left ear documented [facility]* Diagnosis Bladder problem- Primary Unspecified disorder of bladder Coronary artery disease involving bad river band coronary artery of bad river band heart without angina pectoris Primary hypertension Unspecified essential hypertension Other hyperlipidemia Atherosclerosis of aorta (HCC) Atherosclerosis of aorta [facility]* Diagnosis Dizziness- Primary Dizziness and giddiness Balance problem Other symptoms involving nervous and musculoskeletal systems Vertigo Dizziness and giddiness [facility]* Diagnosis Pain- Primary Generalized pain [facility]* Diagnosis Chronic hip pain after total replacement of right hip joint- Primary Pain in right hip Pain in joint, pelvic region and thigh [facility]* Diagnosis Pain Generalized pain [facility]* Diagnosis Pain due to total hip replacement, initial encounter ([facility]) ([facility])- Primary Chronic right-sided low back pain, unspecified whether sciatica present documented in this encounter [facility] note* Diagnosis Other fracture of unspecified lumbar vertebra, initial encounter for closed fracture ([facility])- Primary Chronic bilateral low back pain without sciatica [facility]* Diagnosis Other fracture of unspecified lumbar vertebra, initial encounter for closed fracture ([facility]) [facility] Diagnosis Chronic bilateral low back pain without sciatica- Primary [facility]* Diagnosis Closed compression fracture of L3 lumbar vertebra, initial encounter ([facility])- Primary Iliotibial band syndrome of right side Other disorder of muscle, ligament, and fascia Degenerative scoliosis in adult patient Lumbar spondylosis Lumbosacral spondylosis without myelopathy Lumbar radiculopathy Thoracic or lumbosacral neuritis or radiculitis, unspecified [facility]* Diagnosis Obesity, Class I, BMI 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- Primary Obesity, unspecified Pulmonary hypertension ([facility]) Other chronic pulmonary heart diseases Preop cardiovascular exam Pre-operative cardiovascular examination Coronary artery disease involving bad river band coronary artery of bad river band heart without angina pectoris [facility]* Diagnosis Chronic right-sided low back pain without sciatica- Primary [facility]* Diagnosis Chronic bilateral low back pain with right-sided sciatica- Primary [facility] Diagnosis Bilateral impacted cerumen- Primary Impacted cerumen [facility] Diagnosis Tremor, unspecified- Primary 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 [facility] Diagnosis Pain Generalized pain [facility]* Diagnosis Essential hypertension ([facility]/HCC)- Primary Unspecified essential hypertension Pure hypercholesterolemia (CMS/HCC) Pure hypercholesterolemia Coronary artery disease involving bad river band coronary artery of bad river band heart without angina pectoris (CMS/HCC) Paroxysmal supraventricular tachycardia (CMS/HCC) Paroxysmal supraventricular tachycardia Pulmonary hypertension (CMS/HCC) Other chronic pulmonary heart diseases Aortic stenosis, moderate Acquired hypothyroidism (CMS/HCC) Unspecified hypothyroidism Gastroesophageal reflux disease without esophagitis Esophageal reflux RLS (restless legs syndrome) Restless legs syndrome (RLS) Primary osteoarthritis involving multiple joints Anemia, unspecified type OAB (overactive bladder) Age-related osteoporosis without current pathological fracture (CMS/HCC) History of TIA (transient ischemic attack) Vitamin D deficiency Encounter for screening mammogram for malignant neoplasm of breast Medicare annual wellness visit, subsequent ACP (advance care planning) Other specified counseling documented in this encounter [facility]* Diagnosis Herniated lumbar intervertebral disc- Primary Displacement of lumbar intervertebral disc without myelopathy S/P kyphoplasty Lumbosacral disc herniation documented in this encounter [facility]* Diagnosis Lumbar facet arthropathy- Primary Spondylosis of unspecified site without mention of myelopathy S/P kyphoplasty Spinal stenosis of lumbar region with neurogenic claudication documented in this encounter [facility]* Diagnosis Acute midline low back pain without sciatica documented in this encounter [facility]* Diagnosis Dysuria- Primary documented in this encounter [facility]* Diagnosis Rash and nonspecific skin eruption- Primary Rash and other nonspecific skin eruption documented in this encounter [facility]* Diagnosis Rash and nonspecific skin eruption- Primary Rash and other nonspecific skin eruption Degeneration of intervertebral disc of lumbar region with discogenic back pain documented in this encounter [facility]* Diagnosis Lumbar pain- Primary Lumbago Lumbar pain Lumbago Chronic midline low back pain with bilateral sciatica Lumbar Scoliosis documented in this encounter [facility]* Diagnosis Chronic midline low back pain with bilateral sciatica- Primary Scoliosis of lumbar spine, unspecified scoliosis type Spinal stenosis of lumbar region with neurogenic claudication Radiculopathy, lumbar region Thoracic or lumbosacral neuritis or radiculitis, unspecified Lumbar pain Lumbago documented in this encounter [facility]* Diagnosis Spinal stenosis of lumbar region with neurogenic claudication- Primary Scoliosis of lumbar spine, unspecified scoliosis type Radiculopathy, lumbar region Thoracic or lumbosacral neuritis or radiculitis, unspecified Chronic midline low back pain with bilateral sciatica [facility]* Diagnosis Compression fracture of T12 vertebra, initial encounter ([facility])- Primary Compression fracture of L3 vertebra, initial encounter ([facility]) Age-related osteoporosis with current pathological fracture, vertebra(e), initial encounter for fracture ([facility]) documented in this encounter [facility] note Author Yuni Lundberg [facility] October 19, 2023 2:47pm Note Date/Time October 19, 2023 2:38pm [facility] [address] [place] [address] Hospitalist H&P Signed Patient: Yani Gerard MR#: [id number] : 1940 Acct:[id number] Age/Sex: 83 / F Adm Date: 3 Loc: ER Room: Type: [facility] ER Attending Dr: Copies to: DO Yuni Coffey MD Robert L Hill, MD~ HPI DATE OF EXAMINATION: 10/19/23 CHIEF COMPLAINT: Abnormal speech with left-sided weakness. HISTORY OF PRESENT ILLNESS: Patient is an 83-year-old female with past medical history of coronary disease status post PCI to LAD in 03/17, hyperlipidemia and hypertension. She presented to ER with complaint of abnormal speech and left-sided weakness that started earlier today. She mentioned having similar symptoms a week ago and was admitted to [facility] in [place] where she stayed for a day and underwent stroke workup. Dose of aspirin was increased to 1 6 2 mg and was discharged home. She has been doing well until this morning when she woke up early around 4 AM due to difficulty sleeping. Around 1015am she started noticinghaving left-sided weakness with stuttering of speech feeling weak and shaking. In the emergency room stroke alert was called with NIH stroke scale of 4. Case was discussed with telestroke team in [place] by ER physician and no acute intervention or thrombolytic recommended. CTA head and neck did not show critical stenosis and noted to have 50% stenosis of left internal carotid arteryand less than 50% of right internal carotid artery. 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 On examination she was lying flat comfortably but noted to have stuttering of speech and ataxia both upper extremities more on theleft. Patient has noticed her weakness has improved on the left upper and lowerextremities. Review of Systems Review of Systems All other systems reviewed & are negative unless noted below or in HPI [facility] Medical History (Updated 10/19/23 @ 14:44 by Yuni Lundberg MD) Back pain CAD (coronary artery disease) Dyspnea Heart attack History of revision of total replacement of right hip joint Hypercholesteremia Hypertension Hypothyroidism Restless leg syndrome Surgical History History of coronary angioplasty with insertion of stent 2 stents History of hand surgery L. hand tendon repair for 5th finger History of hysterectomy History of lumbar surgery Hx of cardiac catheterization Family History Father Suicide Grandparent Heart disease Mother Atrial fibrillation Grandparent Atrial fibrillation Daughter Irregular heart beat Son High cholesterol Social History Smoking Status: Never smoker Substance Use Type: None Meds Medications and Allergies Allergies Sulfa (Sulfonamide Antibiotics) Allergy (Severe, Verified 10/19/23 11:20) Hives Pofbpyd-BGJ-SfI Reductase Inhibitor [Rosrzcw-Udf-Hyh Reductase Inhibitor] Adverse Reaction (Severe, Verified 10/19/23 11:20) Joint pain/immobility Home Medications amlodipine 10 mg tablet 10 mg PO DAILY 03/28/19 [History Confirmed 10/19/23] aspirin 81 mg chewable tablet 81 mg PO DAILY 03/28/19 [History Confirmed 10/19/23] levothyroxine 50 mcg tablet (Synthroid) 50 mcg PO DAILY 03/28/19 [History Confirmed 10/19/23] losartan 25 mg tablet 25 mg PO BID 03/28/19 [History Confirmed 10/19/23] magnesium oxide 400 mg (241.3 mg magnesium) tablet 400 mg PO DAILY 03/28/19 [History Confirmed 10/19/23] metoprolol succinate 50 mg tablet,extended release 24 hr 50 mg PO DAILY 03/28/19[History Confirmed 10/19/23] nitroglycerin 0.4 mg sublingual tablet 0.4 mg sublingual Q5MIN.X3 PRN Chest Pain03/28/19 [History Confirmed 10/19/23] evolocumab 140 mg/mL subcutaneous pen injector 140 mg subcut Q2W High cholesterol 09/17/19 [History Confirmed 10/19/23] pramipexole 0.5 mg tablet 0.25 mg PO BID Restless legs 09/17/19 [History Confirmed 10/19/23] isosorbide mononitrate 30 mg tablet,extended release 24 hr 30 mg PO DAILY 30 days #30 tabs 09/19/19 [Rx Confirmed 10/19/23] ranolazine 1,000 mg tablet,extended release,12 hr (Ranexa) 1,000 mg PO BID 30 days #60 tabs 09/19/19 [Rx Confirmed 10/19/23] Exam Physical Exam Vital Signs: Temp Pulse Resp BP Pulse Ox O2 Del Method O2 Flow Rate 97.1 F L 63 16 142/65 H 97 Nasal Cannula 1 10/19/23 10:58 10/19/23 13:15 10/19/23 12:55 10/19/23 12:55 10/19/23 12:55 10/19/23 12:55 10/19/23 12:55 Const General: cooperative Orientation: alert, awake and oriented x3 HEENT Head: normal to inspection, no palpable skull fracture, normocephalic and atraumatic Eyes Pupils: PERRL EOM: EOM intact bilaterally and No nystagmus Neck Neck: normal visual inspection and full ROM Resp Effort & Inspection: normal respiratory effort and able to speak in complete sentences Auscultation: no rales, no rhonchi and no wheezes Cardio Rate: regular rate Rhythm: regular rhythm Heart Sounds: S1 normal and S2 normal GI Palpation: soft, not firm, no guarding and nontender Neuro General: patient alert, patient awake and patient oriented x3 Other: No facial asymmetry or dysarthria. Noted to have stuttering of speech intermittently. Ataxia bilaterally in upper extremities with more on left. Motor strength 5 out of 5 in both upper extremities and lower extremities. Sensation intact normal visual acuity. Extrem General: no clubbing, cyanosis or edema and no calf tenderness Results Lab Results Labs: Laboratory Last Values Corrected WBC 5.2 X10E3/uL (3.8-11.6) 10/19/23 11:04 Uncorrected WBC Count 5.2 x10E3/uL (3.8-11.6) 12/21/23 11:04 RBC 4.10 X10E6/uL (3.60-5.00) 10/19/23 11:04 Hgb 13.9 g/dL (11.8-15.4) 10/19/23 11:04 Hct 40.8 % (34.0-46.4) 10/19/23 11:04 MCV 99.5 fl (80-100) 10/19/23 11:04 MCH 33.9 pg (24.7-34.3) 10/19/23 11:04 MCHC 34.1 g/dL (32.0-35.0) 10/19/23 11:04 RDW 13.6 % (11.9-15.3) 10/19/23 11:04 Plt Count 258 x10E3/uL (150-450) 10/19/23 11:04 MPV 8.9 fl (6.3-10.7) 10/19/23 11:04 Neut % (Auto) 62.7 % (.) 10/19/23 11:04 Lymph % (Auto) 25.2 % (.) 10/19/23 11:04 Calvert % (Auto) 9.4 % (.) 10/19/23 11:04 Eos % (Auto) 1.5 % (.) 10/19/23 11:04 Baso % (Auto) 1.2 % (.) 10/19/23 11:04 Nucleat RBC Rel Count 0.1 /100 WBC (0-0.5) 10/19/23 11:04 Neut # (Auto) 3.3 x10E3/uL (1.8-7.7) 10/19/23 11:04 Lymph # (Auto) 1.3 x10E3/uL (1.00-4.8) 10/19/23 11:04 [place]vert # (Auto) 0.5 x10E3/uL (0.0-0.8) 10/19/23 11:04 Eos # (Auto) 0.1 x10E3/uL (0.0-0.45) 10/19/23 11:04 Baso # (Auto) 0.1 x10E3/uL (0.0-0.2) 10/19/23 11:04 Monocyte Dist Width 18.50 % (0.00-20.00) 10/19/23 11:04 PT 10.7 Seconds (9.0-12.9) 10/19/23 11:04 INR 0.9 10/19/23 11:04 APTT 33.1 Seconds (25.1-36.5) 10/19/23 11:04 PHA Creatinine Clear 51.60 10/19/23 11:04 Sodium 136 mmol/L (136-145) 10/19/23 11:04 Potassium 4.5 mmol/L (3.5-5.1) 10/19/23 11:46 Chloride 101 mmol/L (98-107) 10/19/23 11:04 Carbon Dioxide 27.5 mmol/L (21.0-31.0) 10/19/23 11:04 Anion Gap TNP 10/19/23 11:04 BUN 20 mg/dL (7-25) 10/19/23 11:04 Creatinine 0.65 mg/dL (0.60-1.20) 10/19/23 11:04 Est GFR (CKD-EPI) > 60.0 mL/Min 10/19/23 11:04 Glucose 111 mg/dL (70-100) H 10/19/23 11:04 POC Glucose 103 mg/dl 10/19/23 11:06 Calcium 9.3 mg/dL (8.6-10.3) 10/19/23 11:04 Total Bilirubin 0.4 mg/dl (0.3-1.0) 10/19/23 11:04 Direct Bilirubin 0.10 mg/dL (0.03-0.18) 10/19/23 11:04 Indirect Bilirubin 0.3 mg/dL 10/19/23 11:04 AST 20 U/L (13-39) 10/19/23 11:04 ALT 24 U/L (7-52) 10/19/23 11:04 Alkaline Phosphatase 52 U/L (34-104) 10/19/23 11:04 Total Creatine Kinase 71 U/L (30-223) 10/19/23 11:04 Troponin I High Sens 6.3 pg/mL (0.0-15.0) 10/19/23 11:04 B-Natriuretic Peptide 97.0 pg/mL (5-100) 10/19/23 11:04 Total Protein 7.2 gm/dL (6.4-8.9) 10/19/23 11:04 Albumin 4.6 gm/dL (3.5-5.7) 10/19/23 11:04 Globulin 2.6 gm/dL 10/19/23 11:04 Albumin/Globulin Ratio 1.8 10/19/23 11:04 Urine Color Yellow (Yellow) 10/19/23 13:08 Urine Appearance Clear (Clear) 10/19/23 13:08 Urine pH 8.0 (5.0-9.0) 10/19/23 13:08 Ur Specific Coleman 1.045 (1.001-1.030) H 10/19/23 13:08 Urine Protein Negative mg/dL (Negative) 10/19/23 13:08 Urine Glucose (UA) Normal mg/dL (Normal) 10/19/23 13:08 Urine Ketones Negative (Negative) 10/19/23 13:08 Urine Occult Blood Negative (Negative) 10/19/23 13:08 Urine Nitrite Negative (Negative) 10/19/23 13:08 Urine Bilirubin Negative (Negative) 10/19/23 13:08 Urine Urobilinogen Normal mg/dL (Normal) 10/19/23 13:08 Ur Leukocyte Esterase 2+ (Negative) H 10/19/23 13:08 Urine RBC 0-1 /HPF (0-4) 10/19/23 13:08 Urine WBC 5-9 /HPF (0-4) H 10/19/23 13:08 Ur Squamous Epith Cells None seen /HPF (0-2) 10/19/23 13:08 Urine Bacteria None seen (None Seen) 10/19/23 13:08 Hyaline Casts None seen /LPF (0-8) 10/19/23 13:08 Assessment & Plan Assessment/Plan (1) Abnormal rate of speech: (2) Left-sided weakness: (3) ASHD (arteriosclerotic heart disease): (4) Hypertension: (5) Hypercholesteremia: Plan Patient with recent TIA presented to ER with abnormal speech and left-sided weakness. Given her recurrent symptoms concerning for CVA and she will be admitted for further stroke workup. She does have multiple risk factors holdingcoronary disease and hyperlipidemia. She has been intolerant to statin and currently on PCSK9 inhibitor. Will obtain stroke workup including echocardiogram, MRI brain, A1c and lipid profile. Add Plavix to aspirin and consult neurology. Continue metoprolol, levothyroxine and hold amlodipine to prevent drop in blood pressure. DVT prophylaxis. Consult PT/OT/ST. IP vs OBS Justification Based on differential dx, clinical care plan, and risk of adverse events, if untreated, in my clinical judgement this patient requires an acute care setting as: INPATIENT because of an expectation of an over 2 midnight stay. Estimated length of stay (# of days): 3 Documented By: Yuni Lundberg MD 10/19/23 1437 Signed By: <Electronically signed by Yuni Lundberg MD> 10/19/23 1447 [facility] Work Phone: Hospital course Narrative No data available for this section [facility] No data available for this section [facility] Discharge instructionsAmbulatory Orders* PT/OT/SP OutPatient Referral Time Frame: 1 Day, Location: Determined By Patient [facility] Work Phone: Hospital Discharge instructionsAmbulatory Orders* PT/OT/SP OutPatient Referral Time Frame: 1 Day, Location: Determined By Patient Additional Instructions Follow-up with your Neurologist in [place] after discharge.[facility] Work Phone: Hospital Discharge instructions Additional Instructions AVOID unsupervised activities that might pose danger with sudden loss of consciousness, including bathing, swimming alone, working at heights, and operating heavy machinery. The bathtub is the most common site of seizure-induced drowning, you should be taking showers instead of baths. No carrying little kids. NO driving until [facility] Work Phone: Hospital Discharge instructions Additional Instructions Continue current meds Follow-up Dr. Amin [facility] Work Phone: Hospital Discharge instructions Additional Instructions Your heart tests were normal here. There was no evidence of a heart attack. We also checked for a blood clot with the CAT scan and there was no evidence of this. You do have a urinary tract infection and we gave you some antibiotics here, and antibiotics will be prescribed. We talked about staying in the hospital for observation given your chest pain and history of heart disease with prior stents. You decided to go home. I do want you to be careful and to get checked out if you continue to have chest pain. Please do follow-up with your doctor. [facility] Work Phone: InstructionsNot on filedocumented in this encounter [facility] this [facility] filedocumented in this encounter [facility] filed[facility] in this encounter [facility] on filedocumented in this encounter [facility] on filedocumented in this encounter [facility] filedocumented in this encounter [facility] on filedocumented in this [facility] (narrative)* Diagnostic Procedure Only (Routine) - Authorized Specialty Diagnoses / Procedures Referred By Juan lawrence Referred To Contact MOLECULAR & FUNCTIONAL IMAGING Diagnoses Research subject 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, unspecified vessel or lesion type (HCC) Procedures NM CARDIAC PERF STRESS/PHARM MYOCARDIAL SPECT [place] [address] [place] [id number] [facility] [address] [place] [address] Referral ID Status Reason Start Date Expiration Date Visits Requested Visits Authorized [id number] Authorized Auto-Generat ed Referral 05/20/2022 06/19/2023 1 1 [facility] for referral (narrative)* Outpatient Procedure (Routine) - Authorized Specialty Diagnoses / Procedures Referred By Juan lawrence Referred To Contact [facility] Diagnoses 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, unspecified vessel or lesion type (HCC) Edema leg SOB (shortness of breath) Procedures ECHO ECHO TTHRC R-T 2D W/WOM-MODE COMPL SPEC&[place] [address] [place] [address] [facility] [address] [place] [id number] Referral ID Status Reason Start Date Expiration Date Visits Requested Visits Authorized [id number] Authorized Auto-Generat ed Referral 12/15/2022 12/15/2023 1 1 * Outpatient Procedure (Routine) - Closed Specialty Diagnoses / Procedures Referred By Contac t Referred To Contact [facility] [place] Diagnoses 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, unspecified vessel or lesion type (HCC) Edema leg SOB (shortness of breath) Procedures US LEG VEIN DVT ETELVINA VAS LAB DUP-SCAN XTR VEINS COMPLETE [place] [address] [place] [address] [address] Referral ID Status Reason Start Date Expiration Date V isits Requested Visits Authorized [id number] Closed Auto-Generate d Referral 12/15/2022 12/15/2023 1 1 [facility] for referral (narrative)* Outpatient Procedure (Routine) - Pending Review Specialty Diagnoses / Procedures Referred By Contac t Referred To Contact [facility] [place] Diagnoses Tremor Speech disturbance, unspecified type Procedures EPIL EEG LEAD PLACEMENT EEG EXTENDED MONITORING 61-119 MINUTES ELECTROENCEPHALOGRAM REC COMA/SLEEP ONLY Rena Max APRN.CNP [address] [place] [address] [place] [id number] Referral ID Status Reason Start Date Expiration Date Visits Requested Visits Authorized [id number] Pending Review Auto-Generat ed Referral 12/13/2023 12/13/2024 1 1 [facility] for referral (narrative)* Diagnostic Procedure Only (Routine) - Authorized Specialty Diagnoses / Procedures Referred By Contac t Referred To Contact MOLECULAR [facility] FUNCTIONAL IMAGING Diagnoses Encounter for screening for cardiovascular disorders Procedures NM CARDIAC PERF STRESS/PHARM MYOCARDIAL SPECT MULTIPLE STUDIES Radha Zaragoza APRN.[employer] [address] [place] [address] Molecular [facility] Functional [facility] [address] [place] [address] Referral ID Status Reason Start Date Expiration Date Visits Requested Visits Authorized [id number] Authorized Auto-Generat ed Referral 02/12/2024 03/13/2025 1 1 * Outpatient Procedure (Routine) - Pending Review Specialty Diagnoses / Procedures [facility] Diagnoses Paroxysmal supraventricular tachycardia (HCC) Procedures ECG COMPLETE ECG ROUTINE ECG W/LEAST 12 LDS W/I&R Radha Zaragoza APRN.BOAT CANVAS MAKER INSTALLER [address] [place] [address] [facility] [place] [address] [place] [address] Referral ID Status Reason Start Date Expiration Date Visits Requested Visits Authorized [id number] Pending Review Auto-Generat ed Referral 02/12/2024 02/11/2025 1 1 [facility] for referral (narrative)* Diagnostic Procedure Only (Routine) - Authorized Specialty Diagnoses / Procedures [facility] Referred To Contact XR IMAGING Diagnoses Pain Procedures XR HIP GENERAL 3V PELV/AP/LAT RIGHT RADEX HIP UNILATERAL WITH PELVIS 2-3 VIEWS Fran Rachel PA-C [address] [place] [address] [place] [address] Referral ID Status Reason Start Date Expiration Date Visits Requested Visits Authorized [id number] Authorized Auto-Generat ed Referral 04/18/2024 05/18/2025 1 1 [facility] for referral (narrative)* Diagnostic Procedure Only (Routine) - Closed Specialty Diagnoses / Procedures Referred By Contac t Referred To Contact XR IMAGING Diagnoses Pain Procedures XR HIP GENERAL 3V PELV/AP/LAT RIGHT RADEX HIP UNILATERAL WITH PELVIS 2-3 VIEWS Fran Rachel PA-C [address] [place] [address] [place] [address] Referral ID Status Reason Start Date Expiration Date V isits Requested Visits Authorized [id number] Closed Auto-Generate d Referral 04/18/2024 05/18/2025 1 1 [facility] for referral (narrative)* Diagnostic Procedure Only (Routine) - New Request Specialty Diagnoses / Procedures Referred By Contac t Referred To Contact XR IMAGING Diagnoses Chronic bilateral low back pain with right-sided sciatica Procedures [place] [address] [facility] [place] [address] [place] [address] Referral ID Status Reason Start Date Expiration Date Visits Requested Visits Authorized [id number] New Request Auto-Generat ed Referral 06/18/2024 07/18/2025 1 1 [facility] for visit Narrative* Diagnostic Procedure Only (Routine) - Closed Specialty Diagnoses / Procedures Referred By Contac t Referred To Contact MOLECULAR & FUNCTIONAL IMAGING Diagnoses Encounter for screening for cardiovascular disorders Procedures NM CARDIAC PERF STRESS/PHARM MYOCARDIAL SPECT MULTIPLE STUDIES Radha Zaragoza, PROGRAM ATTENDANT.BOAT CANVAS MAKER INSTALLER [address] [place] [address] [facility] [address] [place] [address] Referral ID Status Reason Start Date Expiration Date V isits Requested Visits Authorized [id number] Closed Auto-Generate d Referral 02/12/2024 03/13/2025 1 1 [facility] Summary Purpose Family History Unknown Family Member Name Dates Details Family history of arterioscl erotic cardiovascular disease: Mother(V17.49, Z82.49) Status:Active Unknown family medical histo ry: Father Status:Active Unknown Family Member Name Dates Details Family history of arterioscl erotic cardiovascular disease: Mother(V17.49, Z82.49) Status:Active Unknown family medical histo ry: Father Status:Active Unknown Family Member Name Dates Details Unknown family medical histo ry: Father Status:Active Family history of arterioscl erotic cardiovascular disease: Mother(V17.49, Z82.49) Status:Active Unknown Family Member Name Dates Details Family history of arterioscl erotic cardiovascular disease: Mother(V17.49, Z82.49) Status:Active Unknown family medical histo ry: Father Status:Active Unknown Family Member Name Dates Details Family history of arterioscl erotic cardiovascular disease: Mother(V17.49, Z82.49) Status:Active Unknown family medical histo ry: Father Status:Active Unknown Family Member Name Dates Details Family history of arterioscl erotic cardiovascular disease: Mother(V17.49, Z82.49) Status:Active Unknown family medical histo ry: Father Status:Active Unknown Family Member Name Dates Details Family history of arterioscl erotic cardiovascular disease: Mother(V17.49, Z82.49) Status:Active Unknown family medical histo ry: Father Status:Active Unknown Family Member Name Dates Details Unknown family medical histo ry: Father Status:Active Family history of arterioscl erotic cardiovascular disease: Mother(V17.49, Z82.49) Status:Active Unknown Family Member Name Dates Details Family history of arterioscl erotic cardiovascular disease: Mother(V17.49, Z82.49) Status:Active Unknown family medical histo ry: Father Status:Active Relationship Condition Age at Onset Recorded Date/T maryan father Suicide Unknown grandparent Heart disease Unknown Not Specified Atrial fibrillation Unknown grandparent Atrial fibrillation Unknown daughter Irregular heart rhythm Unknown natural son High blood cholesterol Unknown Relationship Condition Age at Onset Recorded Date/T maryan father Suicide Unknown grandparent Heart disease Unknown Not Specified Atrial fibrillation Unknown grandparent Atrial fibrillation Unknown daughter Irregular heart rhythm Unknown natural son High blood cholesterol Unknown father Unknown Not Specified Unknown sister Unknown Relationship Condition Age at Onset Recorded Date/T maryan father Suicide Unknown grandparent Heart disease Unknown mother Atrial fibrillation Unknown grandparent Atrial fibrillation Unknown daughter Irregular heart rhythm Unknown son High blood cholesterol Unknown father Unknown mother Unknown sister Unknown Advance Directives Latest Code Status on File Code Status Date Activated Date Inactivated Comments Full Code 10/27/2020 10:36 PM Advance Directive Response Recorded Date/ Time Advance Directives Yes August 4:45pm Documents on File Type Date Recorded 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 Advance Directive(s) 06/14/2023 10:04 AM Advance Directive Response Recorded Date/ Time Advance Directives Yes August 3:45pm Documents on File Type Date Recorded 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 anation Advance Directive(s) 06/14/2023 10:04 AM Hospital Course * Lawanda Berry MD - 10/29/2020 5:43 PM EST Hospital Medicine Discharge Summary Patient ID: Yani Gerard Patient's PCP: Kyle Amin Admit Date: 10/27/2020 Discharge Date: 10/29/2020 Admitting Physician: Lawanda Berry MD Discharge Physician: Lawanda Berry MD Discharge Diagnoses: Active Hospital Problems Diagnosis Chest pain [R07.9] The patient was seen and examined on day of discharge and this discharge summary is in conjunction with any daily progress note from day of discharge. Hospital Course: Yani Gerard is 80 y.o. w/ PMH HTN, CAD s/p stents who was admitted with chest and back pain associated with fatigue, nausea, and dyspnea Patient lives in [facility], PCP is in [place] and payroll examiner is in [place]. Patient on her daughter came down to visit one of the [employer] players which is a friend of the family. And on their way home they stopped it home goods, around 3:30 PM. She suddenly developed pain between his shoulder blades, sweating, nausea, shortness of breath and severefatigue while walking into home goods. She subsequently took 2 nitroglycerin and became extremely weak with headache. She was noted to be hypotensive in the ED which improved with IVF. Troponins were detectable but flat trend at 0.02. Her stress test was negative. Per Cardiology chest pain may be due to non-dominalnt RCA disease noted in patients prior cardiac CATH, which is treated medically. Heincreased her Imdur to 60 mg. BB/ANKUSH-I dose was decreased, and norvasc discontinued due to hypotension during admission. Recommend f/u with PCP for further HTN management as medications may need to be adjusted after discharge. Of note patient had a weak feeling in her legs, headache, and nausea. Possible SE of lexiscan vs increase Imdur. Symptoms improved, patient ambulating well and is stable for discharge home with follow up with her PCP. Physical Exam Performed: BP 131/71 Pulse 59 Temp 97.5 F (36.4 C) (Oral) Resp 18 Ht 5' 2 (1.575 m) Wt 152 lb 1.9 oz (69 kg) SpO2 96% BMI 27.82 kg/m General appearance: No apparent distress, alert and cooperative. HEENT: Conjunctivae/corneas clear. Neck supple with full ROM. Respiratory: Normal respiratory effort. Clear to auscultation, bilaterally without Rales/Wheezes/Rhonchi. Cardiovascular: Regular rate and rhythm, normal S1/S2, no murmurs Abdomen: Soft, non-tender, non-distended with normal bowel sounds. Musculoskeletal: No edema bilaterally. Neurologic: grossly non-focal. Psychiatric: Alert and oriented, normal insight Capillary Refill: Brisk,< 3 seconds Peripheral Pulses: +2 palpable, equal bilaterally Labs: For convenience and continuity at follow-up the following most recent labs are provided: CBC: Lab Results Component Value Date WBC 4.2 10/29/2020 HGB 13.6 10/29/2020 HCT 40.3 10/29/2020 PLT 214 10/29/2020 Renal: Lab Results Component Value Date NA 139 10/28/2020 K 3.6 10/28/2020 CL 106 10/28/2020 CO2 21 10/28/2020 BUN 16 10/28/2020 CREATININE 0.6 10/28/2020 CALCIUM 8.4 10/28/2020 Significant Diagnostic Studies Radiology: NM Cardiac Stress Test Nuclear Imaging Final Result CT CHEST PULMONARY EMBOLISM W CONTRAST Final Result No evidence of pulmonary embolism or acute pulmonary abnormality. XR CHEST (2 VW) Final Result Posterior bibasilar airspace disease may represent atelectasis or pneumonia. Consults: IP CONSULT TO HOSPITALIST IP CONSULT TO CARDIOLOGY Disposition: home Condition at Discharge: Stable Code Status: Full Code Activity: activity as tolerated Diet: cardiac diet Discharge Medications: Current Discharge Medication List Details losartan (COZAAR) 25 MG tablet Take 1 tablet by mouth 2 times daily Qty: 60 tablet, Refills: 0 metoprolol succinate (TOPROL XL) 25 MG extended release tablet Take 2 tablets by mouth daily Qty: 60 tablet, Refills: 0 isosorbide mononitrate (IMDUR) 60 MG extended release tablet Take 1 tablet by mouth daily Qty: 30 tablet, Refills: 0 Details Evolocumab (REPATHA) 140 MG/ML SOSY Inject 140 mg into the skin every 14 days magnesium oxide (MAG-OX) 400 MG tablet Take 400 mg by mouth daily clopidogrel (PLAVIX) 75 MG tablet Take 75 mg by mouth daily pramipexole (MIRAPEX) 0.5 MG tablet Take 0.5 mg by mouth nightly ranolazine (RANEXA) 500 MG extended release tablet Take 1,000 mg by mouth 2 times daily levothyroxine (SYNTHROID) 50 MCG tablet Take 50 mcg by mouth Daily Time Spent on discharge is more than 30 minutes in the examination, evaluation, counseling and review of medications and discharge plan. Signed: Lawanda Berry MD 10/29/2020 Thank you Kyle Amin for the opportunity to be involved in this patient's care. If you have any questions or concerns please feel free to contact me documented in this encounter Discharge Instructions * Discharge Instr - BILL* Nelly Castle RN - 10/28/2020 11:19 AM EST Continuity of Care Form Patient Name: Yani Gerard : 1940 Admit date: 10/27/2020 Discharge date: Code Status Order: Full Code Advance Directives: Advance Care Flowsheet Documentation Date/Time Healthcare Directive Type of Healthcare Directive Copy in Chart Healthcare Agent Appointed Healthcare Agent's Name Healthcare Agent's Phone Number 10/27/20 [phone] No, patient does not have an advance directive for healthcare treatment -- -- -- -- -- Admitting Physician: Darron Sena DO PCP: Kyle Amni Discharging Nurse: Discharging Hospital Unit/Room#: A8K-7335/4120-01 Discharging Unit Phone Number: Emergency Contact: Extended Emergency Contact Information Primary Emergency Contact: Ines Gerard Winona Relation: Spouse Preferred language: Sudanese Secondary Emergency Contact: Kesha Sanderson Relation: Child Preferred language: Sudanese Past Surgical History: Past Surgical History: Procedure Laterality Date CORONARY ANGIOPLASTY WITH STENT PLACEMENT HAND SURGERY left hand/arm HYSTERECTOMY Immunization History: There is no immunization history on file for this patient. Active Problems: Patient Active Problem List Diagnosis Code NSTEMI (non-ST elevated myocardial infarction) ([facility]) I21.4 Isolation/Infection: Isolation No Isolation Patient Infection Status Infection Onset Added Last Indicated Last Indicated By Review Planned Expiration Resolved Resolved By None active Resolved COVID-19 Rule Out 10/27/20 10/27/20 10/27/20 COVID-19 (Ordered) 10/27/20 Rule- Out Test Resulted Nurse Assessment: Last Vital Signs: BP (!) 116/57 Pulse 64 Temp 97.9 F (36.6 C) (Oral) Resp 16 Ht 5' 2 (1.575 m) Wt 155 lb 6.8 oz (70.5 kg) SpO2 96% BMI 28.43 kg/m Last documented pain score (0-10 scale): Pain Level: 0 Last Weight: Wt Readings from Last 1 Encounters: 10/28/20 155 lb 6.8 oz (70.5 kg) Mental Status: {IP PT MENTAL STATUS:} IV Access: { BILL IV ACCESS:377942318} Nursing Mobility/ADLs: Walking {CHP DME ADLs:082831408} Transfer {CHP DME ADLs:924499818} Bathing {CHP DME ADLs:891778576} Dressing {CHP DME ADLs:658750394} Toileting {CHP DME ADLs:223921636} Feeding {CHP DME ADLs:250991971} Studio Model {CHP DME ADLs:073324669} Med Delivery { BILL MED Delivery:570733057} Wound Care Documentation and Therapy: Elimination: Continence: Bowel: {YES / NO:} Bladder: {YES / NO:} Urinary Catheter: {Urinary Catheter:374024217} Colostomy/Ileostomy/Ileal Conduit: {YES / NO:} Date of Last BM: Intake/Output Summary (Last 24 hours) at 10/28/2020 1118 Last data filed at 10/28/2020 0908 Gross per 24 hour Intake 240 ml Output Net 240 ml No intake/output data recorded. Safety Concerns: { BILL Safety Concerns:000344335} Impairments/Disabilities: { BILL Impairments/Disabilities:571820462} Nutrition Therapy: Current Nutrition Therapy: { BILL Diet List:623517080} Routes of Feeding: {CHP DME Other Feedings:471562875} Liquids: {Machine Operator Slitter Technician liquid thickness:81347} Daily Fluid Restriction: {CHP DME Yes amt example:583092783} Last Modified Barium Swallow with Video (Video Swallowing Test): {Done Not Done Date:} Treatments at the Time of Hospital Discharge: Respiratory Treatments: Oxygen Therapy: {Therapy; copd oxygen:08925} Ventilator: - No ventilator support Rehab Therapies: Physical Therapy and Occupational Therapy Weight Bearing Status/Restrictions: No weight bearing restirctions Other Medical Equipment (for information only, NOT a DME order): walker Other Treatments: None Patient's personal belongings (please select all that are sent with patient): None RN SIGNATURE: {Esignature:121655156} CASE MANAGEMENT/SOCIAL WORK SECTION Inpatient Status Date: Readmission Risk Assessment Score: Readmission Risk Risk of Unplanned Readmission: 6 Discharging to Facility/ Agency Name: Address: Phone: Fax: Dialysis Facility (if applicable) Name: Address: Dialysis Schedule: Phone: Fax: Dna Analyst/Escape Wheel Tooth Cutter signature: {Esignature:623993548} PHYSICIAN SECTION Prognosis: {Prognosis:4941042819} Condition at Discharge: { Patient Condition:663225293} Rehab Potential (if transferring to Rehab): {Prognosis:6399412963} Recommended Labs or Other Treatments After Discharge: Physician Certification: I certify the above information and transfer of Yani Gerard is necessary for the continuing treatment of the diagnosis listed and that she requires {Admit to Appropriate Level of Care:50446} for {GREATER/LESS:749759727} 30 days. Update Admission H&P: {CHP DME Changes in HandP:493371591} PHYSICIAN SIGNATURE: {Esignature:162883371} * Additional Instructions* Jonna Noonan RN - 10/29/2020 Follow up with your payroll examiner in 2 weeks and follow up with your primary doctor if symptoms worsen. * Attachments The following attachments cannot be sent through Care Everywhere. * Chest Pain: Musculoskeletal (Sudanese) documented in this encounter History of Present Illness * Jonna Noonan RN - 10/29/2020 5:50 PM EST IV removed. Telemetry removed. Pt instructed to follow up with her payroll examiner in one week and follow up with her PCP as well. New med dosages sent to her home pharmacy in [facility]. Pt discharged home with at this time. * Lawanda Berry MD - 10/29/2020 12:33 PM EST Hospitalist Progress Note PCP: Kyle Amin Date of Admission: 10/27/2020 Hospital Course: admitted for chest pain Subjective: Patient seen and examined. No chest pain today Was feeling fine earlier this morning, however midday started feeling nauseated, diarrhea x 2 episodes with abd cramping, and feels her legs are week, and has headache. States this is how she felt during the stress test with the Lexiscan, but the symptoms improved after the test. Medications: Reviewed Infusion Medications Scheduled Medications metoprolol succinate 25 mg Oral Daily losartan 25 mg Oral BID isosorbide mononitrate 60 mg Oral Daily [Held by provider] amLODIPine 10 mg Oral Daily clopidogrel 75 mg Oral Daily levothyroxine 50 mcg Oral Daily pramipexole 0.5 mg Oral Nightly ranolazine 1,000 mg Oral BID sodium chloride flush 10 mL Intravenous 2 times per day PRN Meds: HYDROcodone 5 mg - acetaminophen, sodium chloride flush, promethazine OR ondansetron,acetaminophen OR acetaminophen, polyethylene glycol, nitroGLYCERIN No intake or output data in the 24 hours ending 10/29/20 1233 Physical Exam Performed: BP 136/83 Pulse 58 Temp 97.5 F (36.4 C) (Oral) Resp 18 Ht 5' 2 (1.575 m) Wt 152 lb 1.9 oz (69 kg) SpO2 96% BMI 27.82 kg/m General appearance: No apparent distress, alert and cooperative. Respiratory: Normal respiratory effort. Clear to auscultation, bilaterally without Rales/Wheezes/Rhonchi. Cardiovascular: Regular rate and rhythm, normal S1/S2, no murmurs Abdomen: Not tender Soft, non-tender, non-distended with normal bowel sounds. Musculoskeletal: No edema bilaterally Neurologic: No new focal deficits, LE with 5/5 strength Psychiatric: Alert and oriented, normal insight Peripheral Pulses: +2 palpable, equal bilaterally Labs: Recent Labs 10/27/20 1720 10/28/20 0838 10/29/20 0736 WBC 6.0 5.1 4.2 HGB 12.1 12.1 13.6 HCT 35.9* 36.6 40.3 PLT 265 209 214 Recent Labs 10/27/20 1720 10/28/20 0838 NA 136 139 K 4.1 3.6 CL 101 106 CO2 22 21 BUN 20 16 CREATININE 1.0 0.6 CALCIUM 8.5 8.4 No results for input(s): AST, ALT, BILIDIR, BILITOT, ALKPHOS in the last 72 hours. Recent Labs 10/27/20 1720 INR 0.89 Recent Labs 10/27/20 2131 10/27/20 2250 10/28/20 0358 TROPONINI 0.02* 0.02* 0.02* Urinalysis: No results found for: NITRU, WBCUA, BACTERIA, RBCUA, BLOODU, SPECGRAV, GLUCOSEU Radiology: NM Cardiac Stress Test Nuclear Imaging Final Result CT CHEST PULMONARY EMBOLISM W CONTRAST Final Result No evidence of pulmonary embolism or acute pulmonary abnormality. XR CHEST (2 VW) Final Result Posterior bibasilar airspace disease may represent atelectasis or pneumonia. Assessment/Plan: Active Hospital Problems Diagnosis NSTEMI (non-ST elevated myocardial infarction) ([facility]) [I21.4] Chest pain - troponin 0.02, trend flat - heparin d/c'd - stress test negative - possible 2/2 nondominant RCA disease, medically treat per cardiology - no further testing per cardiology CAD - c/w plavix, ranexa, bb, imdur dose increased per cardiology recommendations Nausea, headache, weakness - no events on telemetry noted - labs ordered - orthostatic BP ordered - will have RN ambulate patient. - similar episode to Lexiscan yesterday, monitor, did increase imdur today ? SE HTN - hold norvasc - c/w bb, cozar, imdur Hypothyroidism - c/w synthroid RSL - c/w mirapex DVT Prophylaxis: scds, ambulate Diet: DIET CARDIAC; No Caffeine Code Status: Full Code Dispo - home today or tomorrow pending clincial improvement Laawnda Berry MD * Jonna Noonan RN - 10/29/2020 12:01 PM EST Pt states her legs feel weak, she feels nauseated and has a throbbing headache, had an episode of diarrhea and abdomen cramping, and she feels similar to when she arrived to ER. Given prn zofran and pt rested for a while, feels better. Orthostatics negative. Pt ambulating in room and feeling better, hopeful to discharge later this afternoon. Dr Berry updated on this. * Lawanda Berry MD - 10/28/2020 4:02 PM EST Hospitalist Progress Note PCP: Kyle Amin Date of Admission: 10/27/2020 Hospital Course: admitted for chest pain Subjective: Patient seen and examined. Recurrent chest pressure today. Did not improve with nitro. Improved with norco. Medications: Reviewed Infusion Medications Scheduled Medications [Held by provider] amLODIPine 10 mg Oral Daily clopidogrel 75 mg Oral Daily isosorbide mononitrate 30 mg Oral Daily levothyroxine 50 mcg Oral Daily losartan 50 mg Oral BID pramipexole 0.5 mg Oral Nightly ranolazine 1,000 mg Oral BID metoprolol succinate 50 mg Oral Daily sodium chloride flush 10 mL Intravenous 2 times per day nitroglycerin 0.5 inch Topical 4 times per day PRN Meds: sodium chloride flush, promethazine OR ondansetron, acetaminophen OR acetaminophen, polyethylene glycol, nitroGLYCERIN Intake/Output Summary (Last 24 hours) at 10/28/2020 1602 Last data filed at 10/28/2020 0908 Gross per 24 hour Intake 240 ml Output Net 240 ml Physical Exam Performed: BP 118/72 Pulse 60 Temp 98.1 F (36.7 C) (Oral) Resp 16 Ht 5' 2 (1.575 m) Wt 155 lb 6.8 oz (70.5 kg) SpO2 97% BMI 28.43 kg/m General appearance: No apparent distress, alert and cooperative. Respiratory: Normal respiratory effort. Clear to auscultation, bilaterally without Rales/Wheezes/Rhonchi. Cardiovascular: Regular rate and rhythm, normal S1/S2, no murmurs Abdomen: Soft, non-tender, non-distended with normal bowel sounds. Musculoskeletal: No edema bilaterally Neurologic: No new focal deficits Psychiatric: Alert and oriented, normal insight Peripheral Pulses: +2 palpable, equal bilaterally Labs: Recent Labs 10/27/20 1720 10/28/20 0838 WBC 6.0 5.1 HGB 12.1 12.1 HCT 35.9* 36.6 PLT 265 209 Recent Labs 10/27/20 1720 10/28/20 0838 NA 136 139 K 4.1 3.6 CL 101 106 CO2 22 21 BUN 20 16 CREATININE 1.0 0.6 CALCIUM 8.5 8.4 No results for input(s): AST, ALT, BILIDIR, BILITOT, ALKPHOS in the last 72 hours. Recent Labs 10/27/20 1720 INR 0.89 Recent Labs 10/27/20 2131 10/27/20 2250 10/28/20 0358 TROPONINI 0.02* 0.02* 0.02* Urinalysis: No results found for: NITRU, WBCUA, BACTERIA, RBCUA, BLOODU, SPECGRAV, GLUCOSEU Radiology: CT CHEST PULMONARY EMBOLISM W CONTRAST Final Result No evidence of pulmonary embolism or acute pulmonary abnormality. XR CHEST (2 VW) Final Result Posterior bibasilar airspace disease may represent atelectasis or pneumonia. NM Cardiac Stress Test Nuclear Imaging (Results Pending) Assessment/Plan: Active Hospital Problems Diagnosis NSTEMI (non-ST elevated myocardial infarction) ([facility]) [I21.4] Chest pain - troponin 0.02, trend flat - heparin d/c'd - stress test negative - possible 2/2 nondominant RCA disease, medically treat per cardiology - no further testing per cardiology CAD - c/w plavix, ranexa, bb, increase imdur to 60 mg HTN - hold norvasc - c/w bb, cozar, imdur Hypothyroidism - c/w synthroid RSL - c/w mirapex DVT Prophylaxis: scds, ambulate Diet: Diet NPO, After Midnight Exceptions are: Sips with Meds Code Status: Full Code Dispo - monitor for chest pain o/n, home tomorrow Lawanda Berry MD * FeliciaSuresh john, PT - 10/28/2020 3:06 PM EST Physical Therapy Facility/Department: [address] MED SURG Initial Assessment NAME: Yani Gerard : 1940 Date of Service: 10/28/2020 Discharge Recommendations: No further PT recommended at this time Home with assist PRN PT Equipment Recommendations Equipment Needed: No Assessment Assessment: Pt presents with chest pain, started on heparin for NSTEMI. 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 Pt demonstrated independence with mobility without a device. Patientback at baseline at this time. No further PT is indicated at this time Prognosis: Excellent Decision Making: Low Complexity History: see above Exam: see above Clinical Presentation: evolving PT Education: Goals;PT Role;Plan of Care;General Safety;Functional Mobility Training;Gait Training REQUIRES PT FOLLOW UP: No Activity Tolerance Activity Tolerance: Patient Tolerated treatment well Patient Diagnosis(es): The primary encounter diagnosis was NSTEMI (non-ST elevated myocardial infarction) (HCC). Diagnoses of Acute hypotension and Paroxysmal atrial fibrillation (HCC) were also pertinent to this visit. has a past medical history of CAD (coronary artery disease), Pneumonia, and Thyroid disease. has a past surgical history that includes Coronary angioplasty with stent; Hysterectomy; and Hand surgery. Restrictions Restrictions/Precautions Restrictions/Precautions: Up Ad Sienna Vision/Hearing Vision: Within Functional Limits Hearing: Within functional limits Subjective General Chart Reviewed: Yes Patient assessed for rehabilitation services?: Yes Additional Pertinent Hx: Per H& P,medical history of HTN, CAD with stent, paroxysmal A. fib, HLD Response To Previous Treatment: Not applicable Family / Caregiver Present: Yes() Referral Date : 10/27/20 Diagnosis: NSTEMI Follows Commands: Within Functional Limits Subjective Subjective: Patient agreeable to therapy for evaluation and treat. Patient reports no pain. 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 Orientation Orientation Overall Orientation Status: Within Functional Limits Social/Functional History Social/Functional History Lives With: Spouse Type of Home: House Home Layout: Two level Home Access: Stairs to enter with rails Entrance Stairs - Number of Steps: 15 Entrance Stairs - Rails: Both Bathroom Shower/Tub: Walk-in shower Bathroom Toilet: Handicap height Bathroom Equipment: Shower chair Bathroom Accessibility: Walker accessible Home Equipment: Cane Receives Help From: Family ADL Assistance: Independent Homemaking Assistance: Independent Homemaking Responsibilities: Yes Ambulation Assistance: Independent Transfer Assistance: Independent Active Reconciliation Specialist: Yes Mode of Transportation: Car 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[place] Cognition Cognition Overall Cognitive Status: WFL Objective Observation/Palpation Posture: Good AROM RLE (degrees) RLE AROM: WFL AROM LLE (degrees) LLE AROM : WFL Strength RLE Strength RLE: WFL Strength LLE Strength LLE: WFL Strength RUE Strength RUE: WFL Sensation Overall Sensation Status: WFL Bed mobility Supine to Sit: Independent Sit to Supine: Independent Transfers Sit to Stand: Independent Stand to sit: Independent Bed to Chair: Independent Comment: no device Ambulation Ambulation?: Yes Ambulation 1 Surface: level tile Device: No Device Assistance: Independent Quality of Gait: Patient with slightly slower emma with no LOB steady. Gait Deviations: Slow Emma Distance: 120' Comments: HR 69 bpm with no shortness of breath Balance Sitting - Static: Good Sitting - Dynamic: Good Standing - Static: Good Standing - Dynamic: Good Plan Plan Plan Comment: no further PT indicated at this time Safety Devices Type of devices: All fall risk precautions in place, Gait belt, Left in bed, Call light within reach, Bed alarm in place Restraints Initially in place: No AM-PAC Score AM-PAC Inpatient Mobility Raw Score : 23 (10/28/20 1505) AM-PAC Inpatient T-Scale Score : 56.93 (10/28/20 1505) Mobility Inpatient CMS 0-100% Score: 11.2 (10/28/20 1505) Mobility Inpatient CMS G-Code Modifier : CI (10/28/20 1505) Goals Short term goals Time Frame for Short term goals: no goals, patient at baseline Therapy Time Individual Concurrent Group Co-treatment Time In 1430 Time Out 1455 Minutes 25 Timed Code Treatment Minutes: 10 Minutes SURESH [facility] #[id number] * Yvette Baker, OT - 10/28/2020 2:55 PM EST Occupational Therapy Occupational Therapy Initial Assessment and Discharge Summary Date: 10/28/2020 Patient Name: Yani Gerard : 1940 Date of Service: 10/28/2020 Discharge Recommendations: Defer OT at this time, Home with assist PRN Assessment Assessment: Pt presents with chest pain, started on heparin for NSTEMI. 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 Pt demonstrated independence with mobility without a device and withself care/grooming. No OT needs identified. D/C OT. Decision Making: Low Complexity History: See above Exam: mobility, self care Assistance / Modification: none OT Education: OT Role;Plan of Care Barriers to Learning: none REQUIRES OT FOLLOW UP: No Activity Tolerance Activity Tolerance: Patient Tolerated treatment well Safety Devices Safety Devices in place: Yes Type of devices: Left in bed;Nurse notified;Call light within reach Patient Diagnosis(es): The primary encounter diagnosis was NSTEMI (non-ST elevated myocardial infarction) (HCC). Diagnoses of Acute hypotension and Paroxysmal atrial fibrillation (HCC) were also pertinent to this visit. has a past medical history of CAD (coronary artery disease), Pneumonia, and Thyroid disease. has a past surgical history that includes Coronary angioplasty with stent; Hysterectomy; and Hand surgery. Restrictions Restrictions/Precautions Restrictions/Precautions: Up Ad Sienna Subjective General Chart Reviewed: Yes Patient assessed for rehabilitation services?: Yes Additional Pertinent Hx: 80 y/o female in town from [facility], admitted 10/27/2020 with c/o chest pain, nausea, fatigue and SOB. Pt being treated for NSTEMI, bradycardia, and hypotension. CTA chest negative for PE, pt has history of [place] x 2 with stenting in the past year. COVID test negative. Family / Caregiver Present: Yes() Referring Practitioner: Yesy S Puthoff, PROGRAM ATTENDANT - BOAT CANVAS MAKER INSTALLER Diagnosis: NSTEMI Subjective Subjective: Seen in room, agreed to OT. No complaints of pain. Social/Functional History Social/Functional History Lives With: Spouse Type of Home: House Home Layout: Two level Home Access: Stairs to enter with rails Entrance Stairs - Number of Steps: 15 Entrance Stairs - Rails: Both Bathroom Shower/Tub: Walk-in shower Bathroom Toilet: Handicap height Bathroom Equipment: Shower chair Bathroom Accessibility: Walker accessible Home Equipment: Cane Receives Help From: Family ADL Assistance: Independent Homemaking Assistance: Independent Homemaking Responsibilities: Yes Ambulation Assistance: Independent Transfer Assistance: Independent Active Reconciliation Specialist: Yes Mode of Transportation: Car 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[place] Objective Vision: Within Functional Limits Hearing: Within functional limits Orientation Overall Orientation Status: Within Functional Limits Balance Sitting Balance: Independent Standing Balance: Independent Functional Mobility Functional - Mobility Device: No device Assist Level: Supervision Functional Mobility Comments: no LOB, no difficulty ADL Feeding: Independent Grooming: Independent Toileting: Independent Additional Comments: up in room independently Tone RUE RUE Tone: Normotonic Tone LUE LUE Tone: Normotonic Coordination Movements Are Fluid And Coordinated: Yes Bed mobility Supine to Sit: Independent Sit to Supine: Independent Transfers Sit to stand: Supervision Stand to sit: Supervision Vision - Basic Assessment Prior Vision: No visual deficits Cognition Overall Cognitive Status: WFL Perception Overall Perceptual Status: WFL Sensation Overall Sensation Status: WFL LUE AROM (degrees) LUE AROM : WFL RUE AROM (degrees) RUE AROM : WFL LUE Strength Gross LUE Strength: WFL RUE Strength Gross RUE Strength: WFL Plan Plan Times per week: NA D/C OT OutComes Score Yani Gerard scored a on the [facility] ADL Inpatient form. At this time, no further OT is recommended upon discharge due to independence. Recommend patient returns to prior setting with prior services. AM-PAC Score AM-PAC Inpatient Daily Activity Raw Score: 24 (10/28/20 145) AM-PAC Inpatient ADL T-Scale Score : 57.54 (10/28/20 145) ADL Inpatient CMS 0-100% Score: 0 (10/28/201454) ADL Inpatient CMS G-Code Modifier : CH (12/30/20 1455) Goals Short term goals Time Frame for Short term goals: NA- no OT goals identified Patient Goals Patient goals : Pt's goal is to return home as soon as able Therapy Time Individual Concurrent Group Co-treatment Time In 1430 Time Out 1455 Minutes 25 Timed Code Treatment Minutes: 25 Minutes Yvette Baker, OT * Daniela Arriaga, OT - 10/28/2020 11:40 AM EST Occupational Therapy OT order received. Pt off floor for stress test at time of attempt. Will follow up as pt condition permit. * Negrita Krishnamurthy, PT - 10/28/2020 11:40 AM EST Physical Therapy PT attempt Yani Gerard Received orders for PT eval and treat. Attempted this AM but pt off the floor for testing. Will attempt again as schedule permits. * Lisandra Zurita RPH - 10/28/2020 5:56 AM EST Clinical Pharmacy Note Heparin Dosing Lab Results Component Value Date APTT 122.4 10/28/2020 Lab Results Component Value Date HGB 12.1 10/27/2020 HCT 35.9 10/27/2020 PLT 265 10/27/2020 INR 0.89 10/27/2020 Current Infusion Rate: 8.8 mL/hr Plan: HOLD for 1 hour Rate: Restart at 4.4 mL/hr Next aPTT: 1300 10/28/20 Pharmacy will continue to monitor and adjust based on aPTT results. Lisandra Zurita PharmVal 10/28/2020 5:57 AM * Mary Jane San RN - 10/28/2020 12:58 AM EST 4 Eyes Skin Assessment NAME: Yani Gerard DATE OF : 1940 The patient is being assess for Admission I agree that 2 RN's have performed a thorough Head to Toe Skin Assessment on the patient. ALL assessment sites listed below have been assessed. Areas assessed by both nurses: Head, Face, Ears, Shoulders, Back, Chest, Arms, Elbows, Hands, Sacrum. Buttock, Coccyx, Ischium, Legs. Feet and Heels and Other na Does the Patient have a Wound? No noted wound(s) Howard Prevention initiated: Yes Wound Care Orders initiated: No Pressure Injury (Stage 3,4, Unstageable, DTI, NWPT, and Complex wounds) if present place consult order under FLATLOCK SEWING MACHINE OPERATOR:: No New and Established Ostomies if present place consult order under FLATLOCK SEWING MACHINE OPERATOR: No Nurse 1 eSignature: SHARE this note so that the co-signing nurse is able to place an eSignature Nurse 2 eSignature: * Mavis Esquivel RN - 10/28/2020 12:56 AM EST Pt arrived on the unit@ 2333, pt is alert and oriented, adlib, pt oriented to the room, bed in the lowest position and locked, call light within reach, Vs stable. * Macario Baker [facility] - 10/27/2020 9:53 PM EST Clinical Pharmacy Note Heparin Dosing Consult Yani Gerard is a 80 y.o. female ordered heparin per low dose nomogram by Claudia Lee. Lab Results Component Value Date APTT 28.1 10/27/2020 Lab Results Component Value Date HGB 12.1 10/27/2020 HCT 35.9 10/27/2020 PLT 265 10/27/2020 INR 0.89 10/27/2020 Ht Readings from Last 1 Encounters: 10/27/20 5' 2 (1.575 m) Wt Readings from Last 1 Encounters: 10/27/20 162 lb 0.6 oz (73.5 kg) Dosing weight: 73.5 kg Assessment/Plan: Initial bolus: 4000 units Initial infusion rate: 8.8 mL/hr Next aPTT: 10/28/20 0300 Pharmacy will continue to monitor adjust heparin based on aPTT results using nomogram below: LOW DOSE HEPARIN PROTOCOL (ACS/STEMI/A FIB) Initial Bolus: 60 units/kg Max Bolus: 4,000 units Initial Rate: 12 units/kg/hr Max Initial Rate: 1,000 units/hr aPTT < 36 Heparin 60 units/kg bolus Increase infusion by 4 units/kg/hr (maximum 4,000 units) aPTT 37-48 Heparin 30 units/kg bolus Increase infusion by 2 units/kg/hr (maximum 2,000 units) aPTT 49-76 No bolus No change aPTT 77-85 No bolus Decrease infusion by 2 units/kg/hr aPTT 86-94 Hold heparin for 1 hour Decrease infusion by 3 units/kg/hr aPTT 95-103 Hold heparin for 1 hour Decrease infusion by 4 units/kg/hr aPTT > 103 Hold heparin for 1 hour Decrease infusion by 6 units/kg/hr Obtain aPTT 6 hours after initial bolus and 6 hours after any dose change until two consecutive therapeutic aPTTs are achieved - then daily. * Nick Jackson - 10/27/2020 7:29 PM EST Medication Reconciliation List of medications patient is currently taking is complete. Source of information: 1. Conversation with spouse 2. Conversation with [facility] ([place], [place]) Notes regarding home medications: 1. Patient received all of her AM meds 2. In [facility] visiting from [facility]; daughter has all of patient's medications with her Nick Jackson, Before School Babysitter 10/27/2020 7:29 PM documented in this encounter Assessments Diagnosis NSTEMI (non-ST elevated myocardial infarction) (HCC)- Primary Acute myocardial infarction, subendocardial infarction, episode of care unspecified Acute hypotension Paroxysmal atrial fibrillation (HCC) Atrial fibrillation Chest pain Chest pain, unspecified Chief Complaint * YANI GERARD is being seen for hypertension and BP Check. * Patient is in the office for hypertension management. Since I added another 25 mg of losartan her blood pressure is under control. She has had no side effect of the titration Reason for Referral Specialty Diagnoses / Procedures Referred By Contac t Referred To Contact Radiology Diagnoses Compression fracture of T12 vertebra, initial encounter ([facility]) Compression fracture of L3 vertebra, initial encounter ([facility]) Age-related osteoporosis with current pathological fracture, vertebra(e), initial encounter for fracture ([facility]) Procedures IR kyphoplasty lumbar with guidance Beto Rocha APRN-BOAT CANVAS MAKER INSTALLER [address] [place] [address] Referral ID Status Reason Start Date Expiration Date V isits Requested Visits Authorized [id number] Pending Review 06/18/2024 06/18/2025 1 1 Specialty Diagnoses / Procedures Referred By Contac t Referred To Contact Radiology Diagnoses Chronic midline low back pain with bilateral sciatica Scoliosis of lumbar spine, unspecified scoliosis type Spinal stenosis of lumbar region with neurogenic claudication Radiculopathy, lumbar region Lumbar pain Procedures MR lumbar spine without contrast Beto Rocha APRN-BOAT CANVAS MAKER INSTALLER [address] [facility] [address] [place] [address] Referral ID Status Reason Start Date Expiration Date V isits Requested Visits Authorized [id number] Authorized 06/14/2024 12/11/2024 1 1 Specialty Diagnoses / Procedures Referred By Contac t Referred To Contact Diagnoses Acute midline low back pain without sciatica Kyle Amin MD [address] [facility] [address] [place] [address] Referral ID Status Reason Start Date Expiration Date Visits Re quested Visits Authorized [id number] Closed 1 1 Specialty Diagnoses / Procedures Referred By Contac t Referred To Contact [facility] Diagnoses Iliotibial band syndrome of right side Degenerative scoliosis in adult patient Lumbar spondylosis Lumbar radiculopathy Procedures CONSULT TO PHYSICAL THERAPY PHYSICAL THERAPY EVALUATION [facility]IGH COMPLEX 45 MINS Elton Pham MD [address] [place] [address] [facility] [place] [address] [place] [address] Referral ID Status Reason Start Date Expiration Date Visits Requested Visits Authorized [id number] Pending Review Auto-Generat ed Referral 05/23/2024 05/23/2025 1 1 Specialty Diagnoses / Procedures Referred By Contac t Referred To Contact [facility] Diagnoses Chronic bilateral low back pain without sciatica Procedures [facility] MDM [place] [address] [address] [address] Referral ID Status Reason Start Date Expiration Date V isits Requested Visits Authorized [id number] Closed PCP Requested Referral 04/29/2024 04/29/2025 1 1 Specialty Diagnoses / Procedures Referred By Contac t Referred To Contact MR IMAGING Diagnoses Other fracture of unspecified lumbar vertebra, initial encounter for closed fracture (HCC) Procedures MRI LUMBAR SPINE WO IVCON MRI SPINAL CANAL LUMBAR W/O CONTRAST MATERIAL Megan Kirby PA-C [id number] [place] [address] Referral ID Status Reason Start Date Expiration Date V isits Requested Visits Authorized [id number] Closed Auto-Generate d Referral 05/17/2024 06/16/2025 1 1 Specialty Diagnoses / Procedures Referred By Contac t Referred To Contact Gynecology Diagnoses Bladder problem Procedures CONSULT TO GYNECOLOGY OFFICE/OUTPATIENT [facility] 60 MINUTES Radha Zaragoza, PROGRAM ATTENDANT.BOAT CANVAS MAKER INSTALLER [address] [place] [address] Referral ID Status Reason Start Date Expiration Date Visits Requested Visits Authorized [id number] Authorized PCP Requested Referral Auto-Generate d Referral 04/08/2024 04/08/2025 1 1 Specialty Diagnoses / Procedures Referred By Contac t Referred To Contact [facility] Diagnoses Vertigo Procedures CONSULT TO PHYSICAL THERAPY PHYSICAL THERAPY EVALUATION [facility] [place]X [address] [place] [address] [address] [place] [address] [facility] [place] [address] [place] [address] Referral ID Status Reason Start Date Expiration Date Visits Requested Visits Authorized [id number] Pending Review Auto-Generat ed Referral 02/26/2024 02/25/2025 1 1 Specialty Diagnoses / Procedures Referred By Juan t Referred To Contact Diagnoses Functional movement disorder Procedures PROVIDER ORDERED FOLLOW UP OFFICE/OUTPATIENT [facility] 60 MINUTES Nimco Dior, DO [address] [place] [address] Referral ID Status Reason Start Date Expiration Date Visits Re quested Visits Authorized [id number] Closed 07/31/2024 10/29/2024 1 1 Specialty Diagnoses / Procedures Referred By Juan t Referred To Contact [facility] Diagnoses Tremor, unspecified Functional movement disorder Procedures CONSULT TO PHYSICAL THERAPY PHYSICAL THERAPY EVALUATION [facility] COMPLEX 45 MINS Nimco Dior DO [address] [place] [address] [facility] [place] [address] Referral ID Status Reason Start Date Expiration Date Visits Requested Visits Authorized [id number] Authorized Auto-Generat ed Referral 10/30/2023 10/29/2024 99 99 Specialty Diagnoses / Procedures Referred By Juan lawrence Referred To Contact Psychology Diagnoses Tremor, unspecified Functional movement disorder Procedures CONSULT TO PSYCHOLOGY OFFICE/OUTPATIENT [facility] 60 MINUTES Nimco Dior, DO [address] [place] [address] Referral ID Status Reason Start Date Expiration Date Visits Requested Visits Authorized [id number] Pending Review PCP Requested Referral 01/09/2024 01/08/2025 1 1 Specialty Diagnoses / Procedures Referred By Juan t Referred To Contact Diagnoses Tremor, unspecified Functional movement disorder Procedures CONSULT TO [facility] EDUCATION SHARED MEDICAL APPOINTMENT Nimco Dior DO [address] [place] [address] Referral ID Status Reason Start Date Expiration Date Visits Requested Visits Authorized [id number] Ref Not Required PCP Requested Referral 01/09/2024 01/08/2025 1 1 Specialty Diagnoses / Procedures Referred By Contac t Referred To Contact MR IMAGING Diagnoses Diplopia Procedures MRI BRAIN WO IVCON MRI BRAIN BRAIN STEM W/[place] [address] [address] [place] [address] Mr Imaging Referral ID Status Reason Start Date Expiration Date Visits Requested Visits Authorized [id number] Pending Review Auto-Generat ed Referral 05/24/2022 06/23/2023 1 1 Chief Complaint and Reason for Visit Chief Complaint slurred speech Reason for Visit Abnormal rate of spe ech ASHD (arteriosclerotic heart disease) Hypercholesteremia Hypertension Left-sided weakness Stroke-like symptoms Chief Complaint slurred speech Stroke Symptoms Reason for Visit Abnormal rate of spe ech ASHD (arteriosclerotic heart disease) Hypercholesteremia Hypertension Left-sided weakness Stroke-like symptoms Abnormal rate of speech Brain TIA Hypercholesteremia Hypertension Chief Complaint slurred speech Stroke Symptoms luna Reason for Visit ASHD (arteriosclerot ic heart disease) Left-sided weakness Stroke-like symptoms Abnormal rate of speech Brain TIA Abnormal rate of speech Chief Complaint slurred speech Stroke Symptoms luna Reason for Visit ASHD (arteriosclerot ic heart disease) Hypercholesteremia Hypertension Left-sided weakness Stroke-like symptoms Abnormal rate of speech Brain TIA Hypercholesteremia Hypertension Abnormal rate of speech Brain TIA Hypercholesteremia Hypertension Stented coronary artery Stroke Stroke-like symptoms Chief Complaint slurred speech Stroke Symptoms luna shsaking Reason for Visit ASHD (arteriosclerot ic heart disease) Hypercholesteremia Hypertension Left-sided weakness Stroke-like symptoms Abnormal rate of speech Brain TIA Hypercholesteremia Hypertension Abnormal rate of speech Brain TIA Hypercholesteremia Hypertension Stented coronary artery Stroke Stroke-like symptoms Chief Complaint CP Additional Source Comments INFORMATION SOURCE (unrecogn ized section and content) DATE CREATED AUTHOR 04/25/2018 [facility] DATE CREATED AUTHOR AUTHOR'S ORGANIZ ATION 11/26/2021 [facility] DATE CREATED AUTHOR AUTHOR'S ORGANIZ ATION 12/23/2021 [employer] DATE CREATED AUTHOR AUTHOR'S ORGANIZ ATION 03/13/2022 [facility] DATE CREATED AUTHOR AUTHOR'S ORGANIZ ATION 08/09/2022 [facility] DATE CREATED AUTHOR AUTHOR'S ORGANIZ ATION 09/22/2022 [facility] dical Specialist DATE CREATED AUTHOR AUTHOR'S ORGANIZ ATION 10/05/2022 [facility] Pettis [facility] DATE CREATED AUTHOR AUTHOR'S ORGANIZ ATION 05/03/2024 [facility] DATE CREATED AUTHOR AUTHOR'S ORGANIZ ATION 05/21/2024 [facility] DATE CREATED AUTHOR AUTHOR'S ORGANIZ ATION 07/16/2024 [facility] DATE CREATED AUTHOR AUTHOR'S ORGANIZ ATION 07/25/2024 [facility] DATE CREATED AUTHOR AUTHOR'S ORGANIZ ATION 09/26/2024 [facility] DATE CREATED AUTHOR AUTHOR'S ORGANIZ ATION 11/12/2024 [facility] d[facility] Specialists [facility] DATE CREATED AUTHOR AUTHOR'S ORGANIZ ATION 11/19/2024 [facility] DATE CREATED AUTHOR AUTHOR'S ORGANIZ ATION 12/06/2024 [facility] Reason for Visit (unrecogniz ed section and content) Reason Comments Physical Therapy Specialty Diagnoses / Procedures Referred By Juan lawrence Referred To Contact [facility] Diagnoses Tremor, unspecified Functional movement disorder Procedures CONSULT TO PHYSICAL THERAPY PHYSICAL THERAPY EVALUATION HIGH COMPLEX 45 MINS Nimco Dior DO [address] [place] [address] [place] [place] [address] Referral ID Status Reason Start Date Expiration Date Visits Requested Visits Authorized [id number] Authorized Auto-Generat ed Referral 10/30/2023 10/29/2024 93 99 Reason Comments PT Re-eval Referral ID Status Reason Start Date Expiration Date Visits Requested Visits Authorized [id number] Authorized Auto-Generat ed Referral 10/30/2023 10/29/2024 99 99 Reason Comments Shortness of Breath chest pain, n/v. ons et one hr ago. 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, unspecified vessel or lesion type (HCC) Procedures NM CARDIAC PERF STRESS/PHARM MYOCARDIAL SPECT [place] [address] [place] [address] [facility] [address] [place] [address] Referral ID Status Reason Start Date Expiration Date V isits Requested Visits Authorized [id number] Closed Auto-Generate d Referral 05/20/2022 06/19/2023 1 1 Reason Comments Results Reason Comments Results - Mri Reason Comments Follow Up Hearing loss, ears b locked Reason Comments Patient Question Reason Onset Date Comments Refill Request 10/11/2022 Reason Onset Date Comments Refill Request 10/14/2022 Reason Comments Patient Update Reason Comments Established Patient Swollen legs and ank les Reason Onset Date Comments Refill Request 02/07/2023 Reason Comments Established Patient New memory issues th at started a few months ago Memory Problems Reason Comments Orders Reason Comments Established Patient 6 month f/u Reason Comments Received Outside Medical Records Reason Comments Patient Update Patient's [facility] patient is at [facility] with the same symptoms Reason Onset Date Comments Refill Request 12/12/2023 Reason Comments Follow Up TIA's Alteration of Consciousness Specialty Diagnoses / Procedures Referred By Contac t Referred To Contact Diagnoses Stroke-like symptoms Procedures NA Pktc [address] [id number] Referral ID Status Reason Start Date Expiration Date Visits Re quested Visits Authorized [id number] 1 1 Reason Onset Date Comments Refill Request 12/19/2023 Repatha Reason Onset Date Comments Refill Request 12/29/2023 Losartan Reason Comments PT Eval Reason Comments New Patient Tremor, unspecified [R25.1] unable to give tablet Specialty Diagnoses / Procedures Referred By Contac t Referred To Contact Neurology Diagnoses Tremor, unspecified Procedures CONSULT TO NEUROLOGY OFFICE/OUTPATIENT NEW HIGH MDM 60 MINUTES Maximiliano Briggs MD [address] [place] [address] Referral ID Status Reason Start Date Expiration Date V isits Requested Visits Authorized [id number] Closed PCP Requested Referral 01/07/2024 12/30/2024 1 1 Reason Comments Established Patient Specialty Diagnoses / Procedures Referred By Contac t Referred To Contact Neurology Diagnoses Movement disorder Procedures CONSULT TO NEUROLOGY OFFICE/OUTPATIENT [facility] 60 [place] [address] [facility] [address] [place] [address] Referral ID Status Reason Start Date Expiration Date V isits Requested Visits Authorized [id number] Closed PCP Requested Referral 01/02/2024 01/01/2025 1 1 Reason Comments Cardiology Follow Up Leg swelling / shor tness of breath Reason Comments Follow Up Movement Disorder Specialty Diagnoses / Procedures Referred By Contac t Referred To Contact MOLECULAR & FUNCTIONAL IMAGING Diagnoses Encounter for screening for cardiovascular disorders Procedures NM CARDIAC PERF STRESS/PHARM MYOCARDIAL SPECT MULTIPLE STUDIES Radha Zaragoza, PROGRAM ATTENDANT.BOAT [employer]VAS MAKER INSTALLER [address] [place] [address] Molecular & Functional Imaging [address] [place], [place] [id number] Referral ID Status Reason Start Date Expiration Date V isits Requested Visits Authorized [id number] Closed Auto-Generate d Referral 02/12/2024 03/13/2025 1 1 Reason Comments Consult Specialty Diagnoses / Procedures Referred By Contac t Referred To Contact Psychology / CARDIOLOGY Diagnoses Tremor, unspecified Functional movement disorder Procedures CONSULT TO PSYCHOLOGY OFFICE/OUTPATIENT [facility] 60 MINUTES Nimco Dior, [address] [place] [address] Card Pulm [facility] [address] [place] [address] Referral ID Status Reason Start Date Expiration Date V isits Requested Visits Authorized [id number] Closed PCP Requested Referral 10/30/2023 10/29/2024 1 1 Reason Comments Refill Request Reason Onset Date Comments Refill Request 04/02/2024 Reason Comments CARD Hospital Follow Up Reason Comments New Pain Reason Comments Radio Gen RMP Specialty Diagnoses / Procedures Referred By Contac t Referred To Contact XR IMAGING Diagnoses Pain Procedures XR HIP GENERAL 3V PELV/AP/LAT RIGHT RADEX HIP UNILATERAL WITH PELVIS 2-3 VIEWS Fran Rachel PA-C [address] [place] [address] [place] [address] Referral ID Status Reason Start Date Expiration Date V isits Requested Visits Authorized [id number] Closed Auto-Generate d Referral 04/18/2024 05/18/2025 1 1 Reason Comments Referral Request Reason Comments New Patient Evaluation States a low back pain that radiates down the right leg for about 6 weeks. Pain 8/10 Low Back Pain Leg Pain Specialty Diagnoses / Procedures Referred By Contac t Referred To Contact [facility] Diagnoses Chronic bilateral low back pain without sciatica Procedures [facility]SULT TO [facility] OFFICE/OUTPATIENT [facility] 60 [place] [address] [place] [address] Referral ID Status Reason Start Date Expiration Date V isits Requested Visits Authorized [id number] Closed PCP Requested Referral 04/29/2024 04/29/2025 1 1 Reason Comments Insurance Authorization Specialty Diagnoses / Procedures Referred By Contac t Referred To Contact MR IMAGING Diagnoses Other fracture of unspecified lumbar vertebra, initial encounter for closed fracture (HCC) Procedures MRI LUMBAR SPINE WO IVCON MRI SPINAL CANAL LUMBAR W/O CONTRAST MATERIAL Megan Kirby PA-C [address] [place] [address] [place] [address] Referral ID Status Reason Start Date Expiration Date V isits Requested Visits Authorized [id number] Closed Auto-Generate d Referral 05/17/2024 06/16/2025 1 1 Reason Comments Patient Question Appointment Reason Comments Low Back Pain New Patient Evaluation Reason Comments 6 Month Exam Reason Comments Follow Up Movement Disorder Low Back Pain Reason Comments New Patient Reason Comments Insurance Authorization Appointment Reason Comments Follow Up Ears clogged. Reason Onset Date Comments Refill Request 02/02/2024 Reason Comments 6 Month Follow-up Medicare Annual Wellness Visit Subsequen t post-op Kyphoplasty 07/23 Reason Comments Follow-up follow up after kyph o/referred back by the dr who did the kyphoplasties/still having back pain Reason Onset Date Comments Care Navigation 09/02/2024 Reason Comments Follow-up to review mri-being done 09/18 in [place]/pt bringing cd/MRI Thoracic done at [facility] 09/18/24 already loaded into chart Reason Onset Date Comments Med Refill 06/24/2024 Reason Comments Rash Patient is here toda y with complaints of rash on bilateral lower extremities that began 3 days ago. Reason Comments Rash Pt was seen in the o ffice 11/06/2024, prescribed Clobetasol. Bilateral leg rash continues but she feels is improving. She denies itching or pain. Reason Comments Follow-up ep/review xrays resu lts/aware of pb office Reason Onset Date Comments resutls/referral 06/18/2024 Reason Onset Date Comments Precert for Kyphoplasty 06/21/2024 Ordered Prescriptions (unrec ognized section and content) Prescription Sig Dispensed Refills Start Date End Da te isosorbide mononitrate (IMDUR) 60 MG extended release tablet Take 1 tablet by mouth daily 30 tablet 0 10/29/2020 11/28/2020 metoprolol succinate (TOPROL XL) 25 MG extended release tablet Take 2 tablets by mouth daily 60 tablet 0 10/29/2020 11/28/2020 losartan (COZAAR) 25 MG tablet Take 1 tablet by mouth 2 times daily 60 tablet 0 10/29/2020 11/28/2020 Source Comments (unrecognize d section and content) In the event this informatio n is protected by the Federal Confidentiality of Alcohol and Drug Abuse Patient Records regulations: The Federal rules restrict any use of the information to criminally investigate or prosecute any alcohol or drug abuse patient.[facility] the event this information is protected by the Federal Confidentiality of Alcohol and Drug Abuse Patient Records regulations: The Federal rules restrict any use of the information to criminally investigate or prosecute any alcohol or drug abuse patient.[facility] HospitalIn the event this information is protected by the Federal Confidentiality of Alcohol and Drug Abuse Patient Records regulations: The Federal rules restrict any use of the information to criminally investigate or prosecute any alcohol or drug abuse patient.[facility] HospitalIn the event this information is protected by the Federal Confidentiality of Alcohol and Drug Abuse Patient Records regulations: The Federal rules restrict any use of the information to criminally investigate or prosecute any alcohol or drug abuse patient.[facility] HospitalIn the event this information is protected by the Federal Confidentiality of Alcohol and Drug Abuse Patient Records regulations: The Federal rules restrict any use of the information to criminally investigate or prosecute any alcohol or drug abuse patient.[facility] HospitalIn the event this information is protected by the Federal Confidentiality of Alcohol and Drug Abuse Patient Records regulations: The Federal rules restrict any use of the information to criminally investigate or prosecute any alcohol or drug abuse patient.[facility] HospitalIn the event this information is protected by the Federal Confidentiality of Alcohol and Drug Abuse Patient Records regulations: The Federal rules restrict any use of the information to criminally investigate or prosecute any alcohol or drug abuse patient.[facility] HospitalIn the event this information is protected by the Federal Confidentiality of Alcohol and Drug Abuse Patient Records regulations: The Federal rules restrict any use of the information to criminally investigate or prosecute any alcohol or drug abuse patient.[facility] HospitalIn the event this information is protected by the Federal Confidentiality of Alcohol and Drug Abuse Patient Records regulations: The Federal rules restrict any use of the information to criminally investigate or prosecute any alcohol or drug abuse patient.[facility] HospitalIn the event this information is protected by the Federal Confidentiality of Alcohol and Drug Abuse Patient Records regulations: The Federal rules restrict any use of the information to criminally investigate or prosecute any alcohol or drug abuse patient.[facility] HospitalIn the event this information is protected by the Federal Confidentiality of Alcohol and Drug Abuse Patient Records regulations: The Federal rules restrict any use of the information to criminally investigate or prosecute any alcohol or drug abuse patient.[facility] HospitalIn the event this information is protected by the Federal Confidentiality of Alcohol and Drug Abuse Patient Records regulations: The Federal rules restrict any use of the information to criminally investigate or prosecute any alcohol or drug abuse patient.[facility] HospitalIn the event this information is protected by the Federal Confidentiality of Alcohol and Drug Abuse Patient Records regulations: The Federal rules restrict any use of the information to criminally investigate or prosecute any alcohol or drug abuse patient.[facility] HospitalIn the event this information is protected by the Federal Confidentiality of Alcohol and Drug Abuse Patient Records regulations: The Federal rules restrict any use of the information to criminally investigate or prosecute any alcohol or drug abuse patient.[facility] HospitalIn the event this information is protected by the Federal Confidentiality of Alcohol and Drug Abuse Patient Records regulations: The Federal rules restrict any use of the information to criminally investigate or prosecute any alcohol or drug abuse patient.[facility] HospitalIn the event this information is protected by the Federal Confidentiality of Alcohol and Drug Abuse Patient Records regulations: The Federal rules restrict any use of the information to criminally investigate or prosecute any alcohol or drug abuse patient.[facility] HospitalIn the event this information is protected by the Federal Confidentiality of Alcohol and Drug Abuse Patient Records regulations: The Federal rules restrict any use of the information to criminally investigate or prosecute any alcohol or drug abuse patient.[facility] HospitalIn the event this information is protected by the Federal Confidentiality of Alcohol and Drug Abuse Patient Records regulations: The Federal rules restrict any use of the information to criminally investigate or prosecute any alcohol or drug abuse patient.[facility] HospitalIn the event this information is protected by the Federal Confidentiality of Alcohol and Drug Abuse Patient Records regulations: The Federal rules restrict any use of the information to criminally investigate or prosecute any alcohol or drug abuse patient.[facility] HospitalIn the event this information is protected by the Federal Confidentiality of Alcohol and Drug Abuse Patient Records regulations: The Federal rules restrict any use of the information to criminally investigate or prosecute any alcohol or drug abuse patient.[facility] HospitalIn the event this information is protected by the Federal Confidentiality of Alcohol and Drug Abuse Patient Records regulations: The Federal rules restrict any use of the information to criminally investigate or prosecute any alcohol or drug abuse patient.[facility] HospitalIn the event this information is protected by the Federal Confidentiality of Alcohol and Drug Abuse Patient Records regulations: The Federal rules restrict any use of the information to criminally investigate or prosecute any alcohol or drug abuse patient.[facility] HospitalIn the event this information is protected by the Federal Confidentiality of Alcohol and Drug Abuse Patient Records regulations: The Federal rules restrict any use of the information to criminally investigate or prosecute any alcohol or drug abuse patient.[facility] HospitalIn the event this information is protected by the Federal Confidentiality of Alcohol and Drug Abuse Patient Records regulations: The Federal rules restrict any use of the information to criminally investigate or prosecute any alcohol or drug abuse patient.[facility] HospitalIn the event this information is protected by the Federal Confidentiality of Alcohol and Drug Abuse Patient Records regulations: The Federal rules restrict any use of the information to criminally investigate or prosecute any alcohol or drug abuse patient.[facility] HospitalIn the event this information is protected by the Federal Confidentiality of Alcohol and Drug Abuse Patient Records regulations: The Federal rules restrict any use of the information to criminally investigate or prosecute any alcohol or drug abuse patient.[facility] HospitalIn the event this information is protected by the Federal Confidentiality of Alcohol and Drug Abuse Patient Records regulations: The Federal rules restrict any use of the information to criminally investigate or prosecute any alcohol or drug abuse patient.[facility] HospitalIn the event this information is protected by the Federal Confidentiality of Alcohol and Drug Abuse Patient Records regulations: The Federal rules restrict any use of the information to criminally investigate or prosecute any alcohol or drug abuse patient.[facility] HospitalIn the event this information is protected by the Federal Confidentiality of Alcohol and Drug Abuse Patient Records regulations: The Federal rules restrict any use of the information to criminally investigate or prosecute any alcohol or drug abuse patient.[facility] HospitalIn the event this information is protected by the Federal Confidentiality of Alcohol and Drug Abuse Patient Records regulations: The Federal rules restrict any use of the information to criminally investigate or prosecute any alcohol or drug abuse patient.[facility] HospitalIn the event this information is protected by the Federal Confidentiality of Alcohol and Drug Abuse Patient Records regulations: The Federal rules restrict any use of the information to criminally investigate or prosecute any alcohol or drug abuse patient.[facility] HospitalIn the event this information is protected by the Federal Confidentiality of Alcohol and Drug Abuse Patient Records regulations: The Federal rules restrict any use of the information to criminally investigate or prosecute any alcohol or drug abuse patient.[facility] HospitalIn the event this information is protected by the Federal Confidentiality of Alcohol and Drug Abuse Patient Records regulations: The Federal rules restrict any use of the information to criminally investigate or prosecute any alcohol or drug abuse patient.[facility] HospitalIn the event this information is protected by the Federal Confidentiality of Alcohol and Drug Abuse Patient Records regulations: The Federal rules restrict any use of the information to criminally investigate or prosecute any alcohol or drug abuse patient.[facility] HospitalIn the event this information is protected by the Federal Confidentiality of Alcohol and Drug Abuse Patient Records regulations: The Federal rules restrict any use of the information to criminally investigate or prosecute any alcohol or drug abuse patient.[facility] HospitalIn the event this information is protected by the Federal Confidentiality of Alcohol and Drug Abuse Patient Records regulations: The Federal rules restrict any use of the information to criminally investigate or prosecute any alcohol or drug abuse patient.[facility] HospitalIn the event this information is protected by the Federal Confidentiality of Alcohol and Drug Abuse Patient Records regulations: The Federal rules restrict any use of the information to criminally investigate or prosecute any alcohol or drug abuse patient.[facility] HospitalIn the event this information is protected by the Federal Confidentiality of Alcohol and Drug Abuse Patient Records regulations: The Federal rules restrict any use of the information to criminally investigate or prosecute any alcohol or drug abuse patient.[facility] HospitalIn the event this information is protected by the Federal Confidentiality of Alcohol and Drug Abuse Patient Records regulations: The Federal rules restrict any use of the information to criminally investigate or prosecute any alcohol or drug abuse patient.[facility] HospitalIn the event this information is protected by the Federal Confidentiality of Alcohol and Drug Abuse Patient Records regulations: The Federal rules restrict any use of the information to criminally investigate or prosecute any alcohol or drug abuse patient.[facility] HospitalIn the event this information is protected by the Federal Confidentiality of Alcohol and Drug Abuse Patient Records regulations: The Federal rules restrict any use of the information to criminally investigate or prosecute any alcohol or drug abuse patient.[facility] HospitalIn the event this information is protected by the Federal Confidentiality of Alcohol and Drug Abuse Patient Records regulations: The Federal rules restrict any use of the information to criminally investigate or prosecute any alcohol or drug abuse patient.[facility] HospitalIn the event this information is protected by the Federal Confidentiality of Alcohol and Drug Abuse Patient Records regulations: The Federal rules restrict any use of the information to criminally investigate or prosecute any alcohol or drug abuse patient.[facility] HospitalIn the event this information is protected by the Federal Confidentiality of Alcohol and Drug Abuse Patient Records regulations: The Federal rules restrict any use of the information to criminally investigate or prosecute any alcohol or drug abuse patient.[facility] HospitalIn the event this information is protected by the Federal Confidentiality of Alcohol and Drug Abuse Patient Records regulations: The Federal rules restrict any use of the information to criminally investigate or prosecute any alcohol or drug abuse patient.[facility] HospitalIn the event this information is protected by the Federal Confidentiality of Alcohol and Drug Abuse Patient Records regulations: The Federal rules restrict any use of the information to criminally investigate or prosecute any alcohol or drug abuse patient.[facility] HospitalIn the event this information is protected by the Federal Confidentiality of Alcohol and Drug Abuse Patient Records regulations: The Federal rules restrict any use of the information to criminally investigate or prosecute any alcohol or drug abuse patient.[facility] HospitalIn the event this information is protected by the Federal Confidentiality of Alcohol and Drug Abuse Patient Records regulations: The Federal rules restrict any use of the information to criminally investigate or prosecute any alcohol or drug abuse patient.[facility] HospitalIn the event this information is protected by the Federal Confidentiality of Alcohol and Drug Abuse Patient Records regulations: The Federal rules restrict any use of the information to criminally investigate or prosecute any alcohol or drug abuse patient.[facility] HospitalIn the event this information is protected by the Federal Confidentiality of Alcohol and Drug Abuse Patient Records regulations: The Federal rules restrict any use of the information to criminally investigate or prosecute any alcohol or drug abuse patient.[facility] HospitalIn the event this information is protected by the Federal Confidentiality of Alcohol and Drug Abuse Patient Records regulations: The Federal rules restrict any use of the information to criminally investigate or prosecute any alcohol or drug abuse patient.[facility] HospitalIn the event this information is protected by the Federal Confidentiality of Alcohol and Drug Abuse Patient Records regulations: The Federal rules restrict any use of the information to criminally investigate or prosecute any alcohol or drug abuse patient.[facility] HospitalIn the event this information is protected by the Federal Confidentiality of Alcohol and Drug Abuse Patient Records regulations: The Federal rules restrict any use of the information to criminally investigate or prosecute any alcohol or drug abuse patient.[facility] HospitalIn the event this information is protected by the Federal Confidentiality of Alcohol and Drug Abuse Patient Records regulations: The Federal rules restrict any use of the information to criminally investigate or prosecute any alcohol or drug abuse patient.[facility] HospitalIn the event this information is protected by the Federal Confidentiality of Alcohol and Drug Abuse Patient Records regulations: The Federal rules restrict any use of the information to criminally investigate or prosecute any alcohol or drug abuse patient.[facility] HospitalIn the event this information is protected by the Federal Confidentiality of Alcohol and Drug Abuse Patient Records regulations: The Federal rules restrict any use of the information to criminally investigate or prosecute any alcohol or drug abuse patient.[facility] HospitalIn the event this information is protected by the Federal Confidentiality of Alcohol and Drug Abuse Patient Records regulations: The Federal rules restrict any use of the information to criminally investigate or prosecute any alcohol or drug abuse patient.[facility] HospitalIn the event this information is protected by the Federal Confidentiality of Alcohol and Drug Abuse Patient Records regulations: The Federal rules restrict any use of the information to criminally investigate or prosecute any alcohol or drug abuse patient.[facility] HospitalIn the event this information is protected by the Federal Confidentiality of Alcohol and Drug Abuse Patient Records regulations: The Federal rules restrict any use of the information to criminally investigate or prosecute any alcohol or drug abuse patient.[facility] HospitalIn the event this information is protected by the Federal Confidentiality of Alcohol and Drug Abuse Patient Records regulations: The Federal rules restrict any use of the information to criminally investigate or prosecute any alcohol or drug abuse patient.[facility] HospitalIn the event this information is protected by the Federal Confidentiality of Alcohol and Drug Abuse Patient Records regulations: The Federal rules restrict any use of the information to criminally investigate or prosecute any alcohol or drug abuse patient.[facility] HospitalIn the event this information is protected by the Federal Confidentiality of Alcohol and Drug Abuse Patient Records regulations: The Federal rules restrict any use of the information to criminally investigate or prosecute any alcohol or drug abuse patient.[facility] HospitalIn the event this information is protected by the Federal Confidentiality of Alcohol and Drug Abuse Patient Records regulations: The Federal rules restrict any use of the information to criminally investigate or prosecute any alcohol or drug abuse patient.[facility] HospitalIn the event this information is protected by the Federal Confidentiality of Alcohol and Drug Abuse Patient Records regulations: The Federal rules restrict any use of the information to criminally investigate or prosecute any alcohol or drug abuse patient.[facility] HospitalIn the event this information is protected by the Federal Confidentiality of Alcohol and Drug Abuse Patient Records regulations: The Federal rules restrict any use of the information to criminally investigate or prosecute any alcohol or drug abuse patient.[facility] HospitalIn the event this information is protected by the Federal Confidentiality of Alcohol and Drug Abuse Patient Records regulations: The Federal rules restrict any use of the information to criminally investigate or prosecute any alcohol or drug abuse patient.[facility] HospitalIn the event this information is protected by the Federal Confidentiality of Alcohol and Drug Abuse Patient Records regulations: The Federal rules restrict any use of the information to criminally investigate or prosecute any alcohol or drug abuse patient.[facility] HospitalIn the event this information is protected by the Federal Confidentiality of Alcohol and Drug Abuse Patient Records regulations: The Federal rules restrict any use of the information to criminally investigate or prosecute any alcohol or drug abuse patient.[facility] HospitalIn the event this information is protected by the Federal Confidentiality of Alcohol and Drug Abuse Patient Records regulations: The Federal rules restrict any use of the information to criminally investigate or prosecute any alcohol or drug abuse patient.[facility] HospitalIn the event this information is protected by the Federal Confidentiality of Alcohol and Drug Abuse Patient Records regulations: The Federal rules restrict any use of the information to criminally investigate or prosecute any alcohol or drug abuse patient.[facility] HospitalIn the event this information is protected by the Federal Confidentiality of Alcohol and Drug Abuse Patient Records regulations: The Federal rules restrict any use of the information to criminally investigate or prosecute any alcohol or drug abuse patient.[facility] HospitalIn the event this information is protected by the Federal Confidentiality of Alcohol and Drug Abuse Patient Records regulations: The Federal rules restrict any use of the information to criminally investigate or prosecute any alcohol or drug abuse patient.[facility] HospitalIn the event this information is protected by the Federal Confidentiality of Alcohol and Drug Abuse Patient Records regulations: The Federal rules restrict any use of the information to criminally investigate or prosecute any alcohol or drug abuse patient.[facility] HospitalIn the event this information is protected by the Federal Confidentiality of Alcohol and Drug Abuse Patient Records regulations: The Federal rules restrict any use of the information to criminally investigate or prosecute any alcohol or drug abuse patient.[facility] HospitalIn the event this information is protected by the Federal Confidentiality of Alcohol and Drug Abuse Patient Records regulations: The Federal rules restrict any use of the information to criminally investigate or prosecute any alcohol or drug abuse patient.[facility] HospitalIn the event this information is protected by the Federal Confidentiality of Alcohol and Drug Abuse Patient Records regulations: The Federal rules restrict any use of the information to criminally investigate or prosecute any alcohol or drug abuse patient.[facility] HospitalIn the event this information is protected by the Federal Confidentiality of Alcohol and Drug Abuse Patient Records regulations: The Federal rules restrict any use of the information to criminally investigate or prosecute any alcohol or drug abuse patient.[facility] HospitalIn the event this information is protected by the Federal Confidentiality of Alcohol and Drug Abuse Patient Records regulations: The Federal rules restrict any use of the information to criminally investigate or prosecute any alcohol or drug abuse patient.[facility] HospitalIn the event this information is protected by the Federal Confidentiality of Alcohol and Drug Abuse Patient Records regulations: The Federal rules restrict any use of the information to criminally investigate or prosecute any alcohol or drug abuse patient.[facility] HospitalIn the event this information is protected by the Federal Confidentiality of Alcohol and Drug Abuse Patient Records regulations: The Federal rules restrict any use of the information to criminally investigate or prosecute any alcohol or drug abuse patient.[facility] HospitalIn the event this information is protected by the Federal Confidentiality of Alcohol and Drug Abuse Patient Records regulations: The Federal rules restrict any use of the information to criminally investigate or prosecute any alcohol or drug abuse patient.[facility] HospitalIn the event this information is protected by the Federal Confidentiality of Alcohol and Drug Abuse Patient Records regulations: The Federal rules restrict any use of the information to criminally investigate or prosecute any alcohol or drug abuse patient.[facility] HospitalIn the event this information is protected by the Federal Confidentiality of Alcohol and Drug Abuse Patient Records regulations: The Federal rules restrict any use of the information to criminally investigate or prosecute any alcohol or drug abuse patient.[facility] HospitalIn the event this information is protected by the Federal Confidentiality of Alcohol and Drug Abuse Patient Records regulations: The Federal rules restrict any use of the information to criminally investigate or prosecute any alcohol or drug abuse patient.[facility] Care Teams (unrecognized sec tion and content) Team Status: Active Member Role Status Gaurang Amin MD Primary Care Provider Active Team Status: Inactive Member Role Status Gaurang Amin MD Primary Care Provider Active Kem Hammond DO Emergency Provider Active Amparo Blanchard DO RES Active Yuni Lundberg MD Admit Provider, Attending Provider Active Eze Franks DO Other Provider Active Team Status: Active Member Role Status Gaurang Amin MD Primary Care Provider Active Kem Hammond DO Emergency Provider Active Amparo Blanchard DO RES Active Yuni Lundberg MD Admit Provider, Attending Provider Active Gi Asst Relationship Specialty Start Date End Date Kyle Amin MD [address] [place] [address] PCP - General Internal Medicine 07/31/[address] [place] [address] Specialty Register Repairer Cardiology 03/05/19 Fiona Harkins MD [address] [place] [address] Primary Staff Physician Cardiology 01/15/19 Gi Asst Relationship Specialty Start Date End Date Kyle Amin MD [address] [place] [address] PCP - General Internal Medicine 07/31/[address] [facility] [address] [place] [address] Specialty Register Repairer Cardiology 03/05/19 Fiona Harkins MD [address] [place] [address] Primary Staff Physician Cardiology 01/15/19 Gi Asst Relationship Specialty Start Date End Date Kyle Amin MD [address] [place] [address] PCP - General Internal Medicine 07/31/18 [facility] [address] [facility] [address] [place] [address] Specialty Register Repairer Cardiology 03/05/19 Fiona Harkins MD [address] [place] [address] Primary Staff Physician Cardiology 01/15/19 Gi Asst Relationship Specialty Start Date End Date Kyle Amin MD [address] [place] [address] PCP - General Internal Medicine 07/31/[address] [facility] [address] [place] [address] Specialty Register Repairer Cardiology 03/05/19 Fiona Harkins MD [address] [place] [address] Primary Staff Physician Cardiology 01/15/19 Gi Asst Relationship Specialty Start Date End Date Kyle Amin MD [address] [place] [address] PCP - General Internal Medicine 07/31/18 Lico Siu [address] [place] [address] Specialty Register Repairer Cardiology 03/05/19 Fiona Harkins MD [address] [place] [address] Primary Staff Physician Cardiology 01/15/19 Gi Asst Relationship Specialty Start Date End Date Kyle Amin MD [address] [place] [address] PCP - General Internal Medicine 07/31/18 Lico Siu [address] [place] [address] Specialty Register Repairer Cardiology 03/05/19 Fiona Harkins MD [address] [place] [address] Primary Staff Physician Cardiology 01/15/19 Gi Asst Relationship Specialty Start Date End Date Kyle Amin MD [address] [place] [address] PCP - General Internal Medicine 07/31/18 Lico Siu [address] [place] [address] Specialty Register Repairer Cardiology 03/05/19 Fiona Harkins MD [address] [place] [address] Primary Staff Physician Cardiology 01/15/19 Gi Asst Relationship Specialty Start Date End Date Kyle Amin MD [address] [place] [address] PCP - General Internal Medicine 07/31/18 Lico Siu [address] [facility] [address] [place] [address] Specialty Register Repairer Cardiology 03/05/19 Fiona Harkins MD [address] [place] [address] Primary Staff Physician Cardiology 01/15/19 Gi Asst Relationship Specialty Start Date End Date Kyle Amin MD [address] [place] [address] PCP - General Internal Medicine 07/31/[address] [facility] [address] [place] [address] Specialty Register Repairer Cardiology 03/05/19 Fiona Harkins MD [address] [place] [address] Primary Staff Physician Cardiology 01/15/19 Gi Asst Relationship Specialty Start Date End Date Kyle Amin MD [address] [place] [address] PCP - General Internal Medicine 07/31/[address] [facility] [address] [place] [address] Specialty Register Repairer Cardiology 03/05/19 Fiona Harkins MD [address] [place] [address] Primary Staff Physician Cardiology 01/15/19 Gi Asst Relationship Specialty Start Date End Date Kyle Amin MD [address] [place] [address] PCP - General Internal Medicine 07/31/18 Lico Siu [address] [place] [address] Specialty Register Repairer Cardiology 03/05/19 Fiona Harkins MD [address] [place] [address] Primary Staff Physician Cardiology 01/15/19 Gi Asst Relationship Specialty Start Date End Date Kyle Amin MD [address] [place] [address] PCP - General Internal Medicine 07/31/18 [facility] [address] [place] [address] Specialty Register Repairer Cardiology 03/05/19 Fiona Harkins MD [address] [place] [address] Primary Staff Physician Cardiology 01/15/19 Gi Asst Relationship Specialty Start Date End Date Kyle Amin MD [address] [place] [address] PCP - General Internal Medicine 07/31/18 Lico Siu [address] [place] [address] Specialty Register Repairer Cardiology 03/05/19 Fiona Harkins MD [address] [place] [address] Primary Staff Physician Cardiology 01/15/19 Team Status: Inactive Member Role Status Dates Kyle Amin MD Primary Care Provider Active VENTURA Gatica Attending Provider Active Gi Asst Relationship Specialty Start Date End Date Kyle Amin MD [address] [place] [address] PCP - General Internal Medicine 07/31/18 Lico Siu M [address] [place] [address] Specialty Register Repairer Cardiology 03/05/19 Fiona Harkins MD [address] [place] [address] Primary Staff Physician Cardiology 01/15/19 Gi Asst Relationship Specialty Start Date End Date Kyle Amin MD [address] [place] [address] PCP - General Internal Medicine 07/31/[address] [facility] [address] [place] [address] Specialty Register Repairer Cardiology 03/05/19 Fiona Harkins MD [address] [place] [address] Primary Staff Physician Cardiology 01/15/19 Gi Asst Relationship Specialty Start Date End Date Kyle Amin MD [address] [place] [address] PCP - General Internal Medicine 07/31/[address] [facility] [address] [place] [address] Specialty Register Repairer Cardiology 03/05/19 Fiona Harkins MD [address] [place] [address] Primary Staff Physician Cardiology 01/15/19 Gi Asst Relationship Specialty Start Date End Date Kyle Amin MD [address] [place] [address] PCP - General Internal Medicine 07/31/18 [address] Siu [facility] [facility] [address] [place] [address] Specialty Register Repairer Cardiology 03/05/19 Fiona Harkins MD [address] [place] [address] Primary Staff Physician Cardiology 01/15/19 Gi Asst Relationship Specialty Start Date End Date Kyle Amin MD [address] [place] [address] PCP - General Internal Medicine 07/31/18 L[address] Siu [facility] [address] [facility] [address] [place] [address] Specialty Register Repairer Cardiology 03/05/19 Finoa Harkins MD [address] [place], [place] [address] Primary Staff Physician Cardiology 01/15/19 Team Status: Inactive Member Role Status Dates Kyle Amin MD Primary Care Provider Active St art: October 19, 2023 End: October 20, 2023 Kem Hammond DO Emergency Provider Active Sta rt: October 19, 2023 End: October 20, 2023 Amparo Blanchard DO RES Active Start : October 19, 2023 End: October 20, 2023 Yuni Lundberg MD Admit Provider, Atte nding Provider Active Start: October 19, 2023 End: October 20, 2023 Eze Franks DO Other Provider Active Start: October 19, 2023 End: October 20, 2023 Team Status: Active Member Role Status Dates Kyle Amin MD Primary Care Provider Active St art: November 15, 2023 Azar Wyatt DO Emergency Provider Active Start: November 15, 2023 Aaron Rod DO Admit Provider, Atte nding Provider Active Start: November 15, 2023 Team Status: Inactive Member Role Status Dates Kyle Amin MD Primary Care Provider Active St art: November 15, 2023 End: November 16, 2023 Azar Wyatt , DO Emergency Provider Active Start: November 15, 2023 End: November 16, 2023 Aaron Rod , DO Admit Provider, Atte nding Provider Active Start: November 15, 2023 End: November 16, 2023 Team Status: Active Member Role Status Dates Kem Hammond , DO Emergency Provider Active Sta rt: November 30, 2023 Kyle Amin MD Primary Care Provider Active St art: November 30, 2023 Megan Rubin , DO Admit Provider, Atte nding Provider Active Start: November 30, 2023 Gi Asst Relationship Specialty Start Date End Date Kyle Amin MD [address] [place] [address] PCP - General Internal Medicine 07/31/18 Lico Siu MD [address] [place] [address] Specialty Register Repairer Cardiology 03/05/19 Fiona Harkins MD [address] [place] [address] Primary Staff Physician Cardiology 01/15/19 Team Status: Active Member Role Status Dates Kem Hammond DO Emergency Provider Active Sta rt: November 30, 2023 Kyle Amin MD Primary Care Provider Active St art: November 30, 2023 Megan Rubin DO Admit Provider, Atte nding Provider, Other Provider Active Start: November 30, 2023 Miguel Romero DO Other Provider Active Start: November 30, 2023 Lico Siu MD Referring Provider Active St art: November 30, 2023 End: December 04, 2023 Ana Rubio MD Attending Provider Active S tart: November 30, 2023 End: December 04, 2023 Team Status: Inactive Member Role Status Dates Kyle Amin MD Primary Care Provider Active St art: December 08, 2023 End: December 08, 2023 Louis Higgins MD Emergency Provider Active Star t: December 08, 2023 End: December 08, 2023 Gi Asst Relationship Specialty Start Date End Date Kyle Amin MD [address] [place] [address] PCP - General Internal Medicine 07/31/18 Lico Siu [facility] [address] [facility] [address] [place] [address] Specialty Register Repairer Cardiology 03/05/19 Fiona Harkins MD [address] [facility] [place] [address] Primary Staff Physician Cardiology 01/15/19 Gi Asst Relationship Specialty Start Date End Date Kyle Amin MD [address] [place] [address] PCP - General Internal Medicine 03/30/23 Kyle Amin MD [address] [place] [address] PCP - [employer] 10/30/23 Loraine Perry MD [address] [place] [address] Referring Physician Dermatology 08/17/23 Dr Harkins [facility] Cardiology 08/17/23 Dr Adelso [facility] Ophthalmology 08/17/23 Gi Asst Relationship Specialty Start Date End Date Kyle Amin MD [address] [place] [address] PCP - General Internal Medicine 07/31/18 Lico Siu MD [address] [place] [address] Specialty Register Repairer Cardiology 03/05/19 Fiona Harkins MD [address] [place] [address] Primary Staff Physician Cardiology 01/15/19 Gi Asst Relationship Specialty Start Date End Date Kyle Amin MD [address] [place] [address] PCP - General Internal Medicine 07/31/18 Lico Siu MD [address] [facility] [address] [place] [address] Specialty Register Repairer Cardiology 03/05/19 Fiona Harkins MD [address] [place] [address] Primary Staff Physician Cardiology 01/15/19 Gi Asst Relationship Specialty Start Date End Date Kyle Amin MD [address] [place] [address] PCP - General Internal Medicine 07/31/18 Lico Siu MD [address] [facility] [address] [place] [address] Specialty Register Repairer Cardiology 03/05/19 Fiona Harkins MD [address] [place] [address] Primary Staff Physician Cardiology 01/15/19 Gi Asst Relationship Specialty Start Date End Date Kyle Amin MD [address] [place] [address] PCP - General Internal Medicine 07/31/18 Lico Siu MD [address] [place] [address] Specialty Register Repairer Cardiology 03/05/19 Fiona Harkins MD [address] [place] [address] Primary Staff Physician Cardiology 01/15/19 Gi Asst Relationship Specialty Start Date End Date Kyle Amin MD [address] [place] [address] PCP - General Internal Medicine 07/31/18 Lico Siu MD [address] [facility] [address] [place] [address] Specialty Register Repairer Cardiology 03/05/19 Fiona Harkins MD [address] [place] [address] Primary Staff Physician Cardiology 01/15/19 Gi Asst Relationship Specialty Start Date End Date Kyle Amin MD [address] [place] [address] PCP - General Internal Medicine 07/31/18 Lico Siu MD [address] [facility] [address] [place] [address] Specialty Register Repairer Cardiology 03/05/19 Fiona Harkins MD [address] [place] [address] Primary Staff Physician Cardiology 01/15/19 Gi Asst Relationship Specialty Start Date End Date Kyle Amin MD [address] [place] [address] PCP - General Internal Medicine 07/31/18 Lico Siu MD [address] [facility] [address] [place] [address] Specialty Register Repairer Cardiology 03/05/19 Fiona Harkins MD [address] [place] [address] Primary Staff Physician Cardiology 01/15/19 Gi Asst Relationship Specialty Start Date End Date Kyel Amin MD [address] [place] [address] PCP - General Internal Medicine 07/31/18 [address] Siu MD [address] [facility] [address] [place] [address] Specialty Register Repairer Cardiology 03/05/19 Fiona Harkins MD [address] [place] [address] Primary Staff Physician Cardiology 01/15/19 Gi Asst Relationship Specialty Start Date End Date Kyle Amin MD [address] [place] [address] PCP - General Internal Medicine 07/31/18 Lico Siu MD [address] [facility] [address] [place] [address] Specialty Register Repairer Cardiology 03/05/19 Fiona Harkins MD [address] [place] [address] Primary Staff Physician Cardiology 01/15/19 Gi Asst Relationship Specialty Start Date End Date Kyle Amin MD [address] [place] [address] PCP - General Internal Medicine 07/31/18 Lico Siu MD [address] [place] [address] Specialty Register Repairer Cardiology 03/05/19 Fiona Harkins MD [address] [place] [address] Primary Staff Physician Cardiology 01/15/19 Gi Asst Relationship Specialty Start Date End Date Kyle Amin MD [address] [place] [address] PCP - General Internal Medicine 07/31/18 Lico Siu MD [address] [place] [address] Specialty Register Repairer Cardiology 03/05/19 Fiona Harkins MD [address] [place] [address] Primary Staff Physician Cardiology 01/15/19 Gi Asst Relationship Specialty Start Date End Date Kyle Amin MD [address] [place] [address] PCP - General Internal Medicine 07/31/18 Lico Siu MD [address] [place] [address] Specialty Register Repairer Cardiology 03/05/19 Fiona Harkins MD [address] [place] [address] Primary Staff Physician Cardiology 01/15/19 Gi Asst Relationship Specialty Start Date End Date Kyle Amin MD [address] [place] [address] PCP - General Internal Medicine 07/31/18 Lico Siu MD [address] [place] [address] Specialty Register Repairer Cardiology 03/05/19 Fiona Harkins MD [address] [place] [address] Primary Staff Physician Cardiology 01/15/19 Gi Asst Relationship Specialty Start Date End Date Kyle Amin MD [address] [place] [address] PCP - General Internal Medicine 07/31/18 Lico Siu MD [address] [place] [address] Specialty Register Repairer Cardiology 03/05/19 Fiona Harkins MD [address] [place] [address] Primary Staff Physician Cardiology 01/15/19 Gi Asst Relationship Specialty Start Date End Date Kyle Amin MD [address] [place] [address] PCP - General Internal Medicine 07/31/18 Lico Siu MD [address] [place] [address] Specialty Register Repairer Cardiology 03/05/19 Fiona Harkins MD [address] [place] [address] Primary Staff Physician Cardiology 01/15/19 Gi Asst Relationship Specialty Start Date End Date Kyle Amin MD [address] [place] [address] PCP - General Internal Medicine 07/31/18 Lico Siu MD [address] [facility] [address] [place] [address] Specialty Register Repairer Cardiology 03/05/19 Fiona Harkins MD [address] [place] [address] Primary Staff Physician Cardiology 01/15/19 Gi Asst Relationship Specialty Start Date End Date Kyle Amin MD [address] [place] [address] PCP - General Internal Medicine 07/31/18 Lico Siu MD [address] [facility] [address] [place] [address] Specialty Register Repairer Cardiology 03/05/19 Fiona Harkins MD [address] [place] [address] Primary Staff Physician Cardiology 01/15/19 Gi Asst Relationship Specialty Start Date End Date Kyle Amin MD [address] [place] [address] PCP - General Internal Medicine 07/31/18 Lico Siu [facility] [facility] [address] [place] [address] Specialty Register Repairer Cardiology 03/05/19 Fiona Harkins MD [address] [place] [address] Primary Staff Physician Cardiology 01/15/19 Gi Asst Relationship Specialty Start Date End Date Kyle Amin MD [address] [place] [address] PCP - General Internal Medicine 07/31/18 Lico Siu MD [address] [facility] [address] [place] [address] Specialty Register Repairer Cardiology 03/05/19 Fiona Harkins MD [address] [place] [address] Primary Staff Physician Cardiology 01/15/19 Gi Asst Relationship Specialty Start Date End Date Kyle Amin MD [address] [place] [address] PCP - General Internal Medicine 07/31/18 Lico Siu MD [facility] [facility] [address] [place] [address] Specialty Register Repairer Cardiology 03/05/19 Fiona Harkins MD [address] [place] [address] Primary Staff Physician Cardiology 01/15/19 Gi Asst Relationship Specialty Start Date End Date Kyle Amin MD [address] [place] [address] PCP - General Internal Medicine 07/31/18 Lico Siu MD [address] [facility] [address] [place] [address] Specialty Register Repairer Cardiology 03/05/19 Fiona Harkins MD [address] [place] [address] Primary Staff Physician Cardiology 01/15/19 Gi Asst Relationship Specialty Start Date End Date Kyle Amin MD [address] [place] [address] PCP - General Internal Medicine 07/31/18 Lico Siu MD [address] [facility] [address] [place] [phone] Specialty Register Repairer Cardiology 03/05/19 Fiona Harkins MD [address] [place] [address] Primary Staff Physician Cardiology 01/15/19 Gi Asst Relationship Specialty Start Date End Date Kyle Amin MD [address] [place] [address] PCP - General Internal Medicine 07/31/18 Lico Siu MD [address] [facility] [address] [place] [phone] Specialty Register Repairer Cardiology 03/05/19 Fiona Harkins MD [address] [place] [address] Primary Staff Physician Cardiology 01/15/19 Gi Asst Relationship Specialty Start Date End Date Kyle Amin MD [address] [place] [address] PCP - General Internal Medicine 07/31/18 Lico Siu MD [address] [place] [phone] Specialty Register Repairer Cardiology 03/05/19 Fiona Harkins MD [address] [place], [place] [id number] Primary Staff Physician Cardiology 01/15/19 Gi Asst Relationship Specialty Start Date End Date Kyle Amin MD [address] [place] [address] PCP - General Internal Medicine 07/31/18 Lico Siu MD [address] [place] [phone] Specialty Register Repairer Cardiology 03/05/19 Fiona Harkins MD [address] [place] [address] Primary Staff Physician Cardiology 01/15/19 Gi Asst Relationship Specialty Start Date End Date Kyle Amin MD [address] [place] [address] PCP - General Internal Medicine 07/31/18 Lico Siu MD [address] [place] [address] Specialty Register Repairer Cardiology 03/05/19 Fiona Harkins MD [address] [place] [address] Primary Staff Physician Cardiology 01/15/19 Gi Asst Relationship Specialty Start Date End Date Kyle Amin MD [address] [place] [address] PCP - General Internal Medicine 07/31/18 Lico Siu MD [address] [facility] [address] [place] [address] Specialty Register Repairer Cardiology 03/05/19 Fiona Harkins MD [address] [place] [address] Primary Staff Physician Cardiology 01/15/19 Team Status: Inactive Member Role Status Dates Kyle Amin MD Primary Care Provider Active St art: June 29, 2024 End: June 30, 2024 Kwesi Mendoza Jr, MD Emergency Provider Active Start: June 29, 2024 End: June 30, 2024 Gi Asst Relationship Specialty Start Date End Date Kyle Amin MD [address] [place] [address] PCP - General Internal Medicine 07/31/18 Lico iSu MD [address] [facility] [address] [place] [address] Specialty Register Repairer Cardiology 03/05/19 Fiona Harkins MD [address] [place] [address] Primary Staff Physician Cardiology 01/15/19 Gi Asst Relationship Specialty Start Date End Date Kyle Amin MD [address] [place] [address] PCP - General Internal Medicine 03/30/23 Kyle Amin MD [address] [facility] [address] [place] [address] PCP - [employer] 10/30/21 Loraine Perry MD [address] [facility] [address] [place] [address] Referring Physician Dermatology 08/17/23 Lisandra Guerin MD [facility] [address] [place] [address] Referring Physician Neurosurgery 08/28/24 [place] [address] [place] [address] Referring Physician Neurology 08/28/24 Dr Harkins [facility] Cardiology 08/17/23 Dr Adelso Houston [facility] Ophthalmology 08/17/23 Cristóbal Cornell MD General Surgery 08/28/24 Gi Asst Relationship Specialty Start Date End Date Kyle Amin MD [address] [place] [address], [address] [place] [address] PCP - General Internal Medicine 06/25/24 Gi Asst Relationship Specialty Start Date End Date Kyle Amin MD [address] [place] [address], [address] [place] [address] PCP - General Internal Medicine 06/25/24 Gi Asst Relationship Specialty Start Date End Date Kyle Amin MD [address] [place] [address], [address] [place] [address] PCP - General Internal Medicine 06/25/24 Gi Asst Relationship Specialty Start Date End Date Kyle Amin MD [address] [place] [address] PCP - General Internal Medicine 03/30/23 Kyle Amin MD [address] [place] [address] PCP - [employer] 10/30/21 Loraine Perry MD [address] [place] [address] Referring Physician Dermatology 08/17/23 Dr Harkins [facility] Cardiology 08/17/23 Dr Adelso Houston [facility] Ophthalmology 08/17/23 Gi Asst Relationship Specialty Start Date End Date Kyle Amin MD [address] [place] [address] PCP - General Internal Medicine 03/30/23 Kyle Amin MD [address] [place] [address] PCP - [employer] 10/30/21 Loraine Perry MD [address] [place] [address] Referring Physician Dermatology 08/17/23 Dr Harkins [facility] Cardiology 08/17/23 Dr Adelso Houston [facility] Ophthalmology 08/17/23 Gi Asst Relationship Specialty Start Date End Date Kyle Amin MD [address] [place] [address] PCP - General Internal Medicine 07/31/18 Lico Siu MD [address] [facility] [address] [place] [phone] Specialty Register Repairer Cardiology 03/05/19 Fiona Harkins MD [address] [place] [address] Primary Staff Physician Cardiology 01/15/19 Gi Asst Relationship Specialty Start Date End Date Kyle Amin MD [address] [place] [address] PCP - General Internal Medicine 03/30/23 Loraine Perry MD [address] [place] [address] Referring Physician Dermatology 08/17/23 Lisandra Guerin MD [address] [place] [address] [address] [place] [phone] Referring Physician Neurosurgery 08/28/24 [place] [address] [place] [address] Referring Physician Neurology 08/28/24 Dr Harkins [facility] Cardiology 08/17/23 Dr Adelso Houston [facility] Ophthalmology 08/17/23 Cristóbal Cornell MD General Surgery 08/28/24 Gi Asst Relationship Specialty Start Date End Date Kyle Amin MD [address] [place] [address] PCP - General Internal Medicine 03/30/23 Loraine Perry MD [address] [place] [address] Referring Physician Dermatology 08/17/23 Lisandra Guerin MD [address] [place] [address] [address] [place] [phone] Referring Physician Neurosurgery 08/28/24 [place] [address] [place] [address] Referring Physician Neurology 08/28/24 Dr Harkins [facility] Cardiology 08/17/23 Dr Adelso Houston [facility] Ophthalmology 08/17/23 Cristóbal Cornell MD General Surgery 08/28/24 Goals (unrecognized section and content) Goals may be documented in a n alternate section FOR RECORDS PERTAINING TO PATIENTS WHO ARE OR HAVE BEEN ENROLLED IN A CHEMICAL DEPENDENCY/SUBSTANCEABUSE PROGRAM, SOME INFORMATION MAY BE OMITTED. This clinical summary was aggregated from multiple sources. Caution should be exercised in using it in the provision of clinical care. This summary normalizes information from multiple sources, and as a consequence, information in this document may materially change the coding, format and clinical context of patient data. In addition, data may be omitted in some cases. CLINICAL DECISIONS SHOULD BE BASED ON THE PRIMARY CLINICAL RECORDS. [facility] provides no warranty or guarantee of the accuracy or completeness of information in this document.
[2024-12-17 07:08] VITALS: BP 161/86; PULSE 56; TEMP 35.9
[2024-12-17 07:44] VITALS: BP 196/84; PULSE 54; O2SAT 94
[2024-12-17 07:45] VITALS: BP 174/79; PULSE 57; O2SAT 95
[2024-12-17] MEDS: BUPIVACAINE HCL 0.25% PF 25 MG/10 ML VIAL 4 ML INJ (07:51)
--- NOTE | 2024-12-17 08:23 | P.ON_ITS ---
Date of procedure: 12/17/24 Pre-op diagnosis: Lumbar spondylosis Post-op diagnosis: same as pre-op Procedure: Left Lumbar 3/4, 4/5 medial branch block Under fluoroscopic guidance Solution injected: 2millilitersMarcaine 0.25% Anesthesia :none Immediate complications none Time out process compliant After informed consent obtained from the patient placed in the Prone proposition . area was prepped and draped in a sterile fashion using Cloraprep .25 gauge spinal needle inserted over each of the above mentioned target areas . [place] were directed towards the target under fluoroscopic guidance . after encountering each of the targets , no indication of intravascular intraneuronal or intrathecal needle tip placement. Then 0 .5 to 1 Milliliter was injected at each level. [place] removed postoperatively. patient transferred to recovery in stable condition to be discharged home after meeting criteria Anesthesia: Local Surgeon: Roman Paredes Condition: stable
== END 2024-12-17 08:00 | disposition home or self-care (01) ==
LOC: SURGOUT 06:53
PROVIDERS: PCP Internal Medicine; Visit Provider Anesthesiology Pain Medicine
DX: M47.816 Spondylosis without myelopathy or radiculopathy, lumbar region (principal)
CPT/HCPCS: 64493; 64494; J0665

== ENCOUNTER 2024-12-19 09:02 | Outpatient (OUT) | payer MEDICARE, SELFPAY ==
--- NOTE | 2024-12-19 09:27 | PM.CN ---
Consult Note: HPI Data of Consult Patient: known to practice within the last 3 years Requesting Physician: Dominique Benton NP Primary Care Provider: KYLE AMIN Consult Narrative Reason for consult: f/u Narrative: Nandini Gerard an 84 year old female presents for evaluation of chronic low back pain secondary to lumbar spondylosis. pt has failed > 6 weeks of provider guided HEP and PT within the last 6 months, heat, ice, tylenol, and NSAIDs. Pain today 5/10 aching, increasing to 10/10 with standing, walking, pushing, pulling, twisting, bending, and activity. Pain improved with sitting. Recently underwent left L3/4 L4/5 facet medial branch block #1 and #2 with >80% improvement in pain and functional ability while anesthetized, preop pain up to 10/10 post op pain 2/10 while anesthetized. denies falls/injury. cc:: CC: Dominique Benton NP Review of Systems ROS Status of ROS 10 or more systems reviewed and unremarkable except as noted in history and below Musculoskeletal Reports: back pain PFSH PFSH Medical History (Updated 12/19/24 @ 09:29 by Dominique Benton NP) Low back pain ?M54.50 - Low back pain, unspecified (ICD-10) Cataract, left ?H26.9 - Unspecified cataract (ICD-10) Cataract, right ?H26.9 - Unspecified cataract (ICD-10) Hammertoes of both feet ?M20.41 - Other hammer toe(s) (acquired), right foot (ICD-10) ?M20.42 - Other hammer toe(s) (acquired), left foot (ICD-10) History of hypothyroidism ?Z86.39 - Personal history of other endocrine, nutritional and metabolic disease (ICD-10) History of heart attack ?I25.2 - Old myocardial infarction (ICD-10) Surgical History History of kyphoplasty ?Z98.890 - Other specified postprocedural states (ICD-10) History of lumbar discectomy ?Z98.890 - Other specified postprocedural states (ICD-10) History of revision of total replacement of right hip joint ?Z96.641 - Presence of right artificial hip joint (ICD-10) History of total right hip arthroplasty ?Z96.641 - Presence of right artificial hip joint (ICD-10) History of hysterectomy ?Z90.710 - Acquired absence of both cervix and uterus (ICD-10) H/O heart artery stent ?Z95.5 - Presence of coronary angioplasty implant and graft (ICD-10) Meds Home Medications and Allergies Home Medications ?Medication ?Instructions ?Recorded ?Confirmed ?Type biotin 2,500 mcg capsule 2,500 mcg PO DAILY 10/15/24 12/17/24 History ezetimibe 10 mg tablet 10 mg PO DAILY 10/15/24 12/17/24 History furosemide 40 mg tablet 40 mg PO BID 10/15/24 12/17/24 History isosorbide dinitrate 30 mg tablet 30 mg PO DAILY 10/15/24 12/17/24 History losartan 25 mg tablet 25 mg PO DAILY 10/15/24 12/17/24 History methocarbamol 750 mg tablet 750 mg PO Q6H 10/15/24 12/17/24 History metoprolol tartrate 50 mg tablet 50 mg PO DAILY 10/15/24 12/17/24 History pramipexole 0.5 mg tablet 0.25 mg PO BID 10/15/24 12/17/24 History ranolazine 1,000 mg 1,000 mg PO BID 10/15/24 12/17/24 History tablet,extended release,12 hr levothyroxine 50 mcg tablet mcg 11/05/24 History Allergies Allergy/AdvReac Type Severity Reaction Status Date / Time Sulfa (Sulfonamide Allergy Unknown Unknown Verified 12/17/24 07:13 Antibiotics) Exam Constitutional Documenting provider has reviewed patient's vital signs: yes Common normals: no apparent distress, oriented x3, healthy appearing, alert and well nourished General appearance: cooperative [facility] Common normals: normocephalic, hearing grossly normal bilaterally and moist oral mucous membranes Head and scalp: normocephalic Eye Common normals: PERRL Pupil: PERRL Neck & C-Spine Common normals: full ROM General: normal visual inspection Chest Common normals: inspection of chest normal Respiratory Common normals: normal respiratory effort, no retractions and no use of accessory muscles Back & Pelvis Lumbar spine/lower back: ROM limited, pain with ROM, lumbar spinal tenderness and straight leg raise negative bilaterally Sacroiliac joints: SI joints normal Other: left L3-5 facet loading and tenderness strength 5/5 in BLE sensation intact BLE Neuro Common normals: oriented x3, CN's II-XII intact bilaterally, moves all extremities, no focal motor deficits, no sensory deficits noted and deep tendon reflexes 2+ bilaterally Sensorium/orientation: alert Motor exam: strength 5/5 throughout and no movement abnormalities noted Psych Common normals: mental status grossly normal, thought process normal, cooperative, affect normal, speech normal and activity/motor behavior normal Speech: normal speech Thought process: normal thought process Results Additional Findings Additional findings: If on a controlled substance or opioids, I have checked an [place] report on this patient and there are no aberrancies noted in the prescribing history.??If on a controlled substance or opioid a drug screen was completed and reviewed within the last year, and if there has not been a drug screen completed we ordered one today to monitor higher risk, state monitored pain medication use. As part of providing excellent, safe, comprehensive care, the following was completed at our patient's visit: 1. A medication reconciliation and review to ensure accurate knowledge of current/active medications, including asking our patients to inform us about any [id number]-uuy-[id number] medications or herbal remedies/nutritional supplements/alternative remedies. 2. A review to specifically ensure our patients have had annual screening for screening for depression, screening for tobacco use, and screening for unhealthy alcohol use. For concerning screenings had a discussion with the patient, provided patient education, and recommended follow-up with primary care provider when appropriate. If patient noted with a risk of falling, they received education on strength, gait, and balance training to prevent future risk of falling. Portions of this note may have been carried over from the previous visit and updated as appropriate. Please note this office utilizes paper charting in addition to the electronic medical record. A list of current medications, vitals, and PMH is available there as the clinical staff outside of myself do not have access to [employer] charting during the clinic day operations. As part of providing quality comprehensive care the current medications, vitals, and PMH were reviewed in the paper chart. Assessment and Plan Assessment and Plan (1) Lumbar spondylosis: Assessment and Plan: The patient has had over 3 months of moderate to severe low back pain with functional impairment and inadequate response to conservative care including NSAIDS (unless there are contraindication such as concurrent blood thinners), multiple oral or topical pain medications, and home exercise program/physical therapy.? Patient has completed >6 weeks of guided home exercise program and/or formal physical therapy program without relief of their symptoms.? I have reviewed the imaging of the lumbar spine and no red flags were identified.? The imaging reveals radiographic findings consistent with lumbar spondylosis The Oswestry Disability Index was completed, and the patient scored a 32%.? The patient noted the following:?? moderate to severe pain while standing, walking, ADLs, and travel We discussed the risks and benefits of the procedure with the patient, and we are NOT planning on using sedation as outlined in the guidelines from Medicare unless there is a documented reason that sedation would be strongly recommended.?? ?The procedure will be completed with fluoroscopic guidance.? Plan left L3/4 L4/5 facet medial branch RFA under fluoroscopy continue HEP as tolerated continue current medications f/u 1 month after RFA complete
== END 2024-12-19 09:03 | disposition home or self-care (01) ==
LOC: PM 09:02
PROVIDERS: PCP Internal Medicine; Visit Provider Nurse Practitioner
DX: M47.816 Spondylosis without myelopathy or radiculopathy, lumbar region (principal)
CPT/HCPCS: G0463

== ENCOUNTER 2024-12-31 07:49 | Day surgery (SDC) | payer MEDICARE, SELFPAY ==
[2024-12-31 07:55] VITALS: BP 154/70; PULSE 60; TEMP 36.5; O2SAT 99
[2024-12-31] MEDS: DIAZEPAM 5 MG TABLET 10 MG PO (08:45)
[2024-12-31 09:25] VITALS: PULSE 57; PULSE 67
[2024-12-31 09:31] VITALS: BP 167/74; O2SAT 97
[2024-12-31 09:32] VITALS: BP 163/63; O2SAT 98
[2024-12-31] MEDS: LIDOCAINE HCL 2% 400 MG/20 ML MDV 5 ML INJ (09:36)
[2024-12-31] MEDS: BUPIVACAINE HCL 0.25% PF 25 MG/10 ML VIAL 5 ML INJ (09:36)
[2024-12-31] MEDS: METHYLPREDNISOLONE ACETATE 40 MG/ML VIAL INJ (09:36)
--- NOTE | 2024-12-31 09:55 | W.PM.PROCNOT ---
Date of procedure: 12/31/24 Pre-op diagnosis: Lumbar spondylosis Post-op diagnosis: same as pre-op Procedure: Left Lumbar 3/4, 4/5 Radiofrequency ablation Under fluoroscopic guidance Rhizotomy was created using radio frequency ablation at 80?C for 90 seconds 1 to 2 lesions created at each site. Post lesioning injection of 2 mL each of 0.25% Marcaine and 2% lidocaine with Depo-Medrol 40mg. 0.5 to 1 mL injected at each site IV in place no If Intravenous fluids: NS at KVO Anesthesia local 2% lidocaine for Anesthesia Other: Timeout process compliant After informed consent obtained.Patient brought to the procedure room placed in the prone position skin overlying the area was prepped and draped in a sterile fashion using betadine. 25 gauge needle was used to create a skin wheal over each of the targeted areas utilizing 2% lidocaine. A rhizotomy needle with a 10 mm active tip was inserted over each of the anesthetized areas and directed towards each of the medial branches accomplished under fluoroscopic guidance. after encountering the same we had positive sensory stimulation, negative motor stimulation was noted. lesions were then created. Post lesioning, steroid solution was injected needles removed. Patient was transferred to recovery room in stable condition to be discharged home after meeting criteria. Anesthesia: Local Surgeon: Roman Paredes Condition: stable
== END 2024-12-31 10:00 | disposition home or self-care (01) ==
LOC: SURGOUT 07:50
PROVIDERS: PCP Internal Medicine; Visit Provider Anesthesiology Pain Medicine
DX: M47.816 Spondylosis without myelopathy or radiculopathy, lumbar region (principal)
CPT/HCPCS: 64635; 64636; J0665; J1010

== ENCOUNTER 2025-01-30 09:25 | Outpatient (OUT) | payer MEDICARE, SELFPAY ==
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
== END 2025-01-30 09:26 | disposition home or self-care (01) ==
LOC: PM 09:26
PROVIDERS: PCP Internal Medicine; Visit Provider Nurse Practitioner
DX: M47.816 Spondylosis without myelopathy or radiculopathy, lumbar region (principal); M51.369 Other intervertebral disc degeneration, lumbar region without mention of lumbar back pain or lower extremity pain; M54.16 Radiculopathy, lumbar region; M48.062 Spinal stenosis, lumbar region with neurogenic claudication
CPT/HCPCS: G0463

== ENCOUNTER 2025-02-13 08:53 | Outpatient (OUT) | payer MEDICARE, SELFPAY ==
--- NOTE | 2025-02-13 08:57 | MR_ITS ---
The [address] [address] Patient Name: YANI ALTAMIRANO MRN: [id number] date: 1940 Sex: F Assigned Patient Location: [facility] Current Patient Location: [facility] Accession/Order Number: [id number] Exam Date: 02/13/2025 11:43 Report Date: 02/13/2025 12:06 At the request of: SERENA OSPINA NP Procedure: MR lumbar spine wo con MRI LUMBAR SPINE WITHOUT CONTRAST CLINICAL DATA: Chronic left-sided back pain. No injury. COMPARISON: Plain films 10/16/2024 Multiecho imaging in the axial and sagittal plane was performed without contrast. There is levoscoliotic curvature. There is no significant malalignment on the sagittal sequences. There are several compression fractures extending from T11 through L3 with central signal void correlating with the radiopaque cement and kyphoplasty visualized on the comparison plain films. There is no marrow edema or suspected acute fractures. Degenerative endplate signal changes are noted at L4-5 and the lumbosacral junction toward the left. Laminectomy defects at those levels on the left are not excluded. The conus medullaris is within normal limits for caliber, position and signal intensity. At T10-11 and T11-T12, sagittal sequences show mild annular disc bulging and some posterior element hypertrophy with associated thecal sac effacement and foraminal encroachment. At T12-L1, there is minor annular disc bulging. This is significant associated stenosis. At L1-2, mild annular disc bulging is present, greater toward the neural foramen and slightly asymmetric extending laterally on the left. There is mild facet and ligament hypertrophy. There is mild to moderate thecal sac effacement. There is no significant foraminal impingement. At L2-3, there is mild annular disc bulging, greater toward the neural foramen. There is mild facet and ligament hypertrophy. There is mild thecal sac effacement. There is mild inferior foraminal encroachment, greater on the left. At L3-4, there is mild annular disc bulging, greater toward the neural foramen. There is bilateral facet and ligament hypertrophy. Moderate central stenosis is noted. There is mild right and mild to moderate left foraminal impingement. At L4-5, there is narrowing of the disc space. Disco-osteophytic bulging is visualized extending laterally though there is also asymmetry in the right parasagittal region. Bilateral facet hypertrophy is seen, greater on the left. There is mild thecal sac effacement. Moderate right and moderate to severe left foraminal encroachment is noted. The lumbosacral junction, there is mild annular disc bulging asymmetric toward the left lateral recess and extending laterally where there is also mild endplate hypertrophy. Facet hypertrophy is seen. No thecal sac effacement is identified. There is moderate to severe left and minimal right foraminal impingement. MR/MR lumbar spine wo con IMPRESSION: LEVOSCOLIOSIS. MULTILEVEL COMPRESSION FRACTURES WITH KYPHOPLASTY. DISCOVERTEBRAL DEGENERATIVE CHANGES WITH ASSOCIATED STENOSIS OUTLINED ABOVE. Impression dictated by: Ayah Lincoln M.D.02/13/2025 12:06 PM Dictation Location: [place] [address] Electronically authenticated by: [id number] Y Date: 02/13/2025 12:06
== END 2025-02-13 08:54 | disposition home or self-care (01) ==
LOC: MRI 08:53
PROVIDERS: PCP Internal Medicine; Visit Provider Nurse Practitioner
DX: M48.062 Spinal stenosis, lumbar region with neurogenic claudication (principal); M51.369 Other intervertebral disc degeneration, lumbar region without mention of lumbar back pain or lower extremity pain; M48.56XA Collapsed vertebra, not elsewhere classified, lumbar region, initial encounter for fracture; M41.86 Other forms of scoliosis, lumbar region
CPT/HCPCS: 72148

== ENCOUNTER 2025-02-17 11:28 | Day surgery (SDC) | payer MEDICARE, SELFPAY ==
[2025-02-17 11:34] VITALS: PULSE 60; TEMP 36.2; O2SAT 96
[2025-02-17 12:27] VITALS: BP 159/74; PULSE 64; O2SAT 95
[2025-02-17 12:29] VITALS: BP 172/82; PULSE 65; O2SAT 95
[2025-02-17] MEDS: 0.9 % SODIUM CHLORIDE 10 ML SYRINGE - SALINE FLUSH INJ (12:29)
[2025-02-17] MEDS: DEXAMETHASONE SOD PHOS 10 MG/ML VIAL INJ (12:30)
[2025-02-17] MEDS: LIDOCAINE HCL 2% 400 MG/20 ML MDV 3 ML INJ (12:30)
[2025-02-17] MEDS: BUPIVACAINE HCL 0.25% PF 25 MG/10 ML VIAL INJ (12:30)
[2025-02-17] MEDS: IOHEXOL 240 MG/ML - 10 ML VIAL 24 MG INJ (12:30)
--- NOTE | 2025-02-17 12:34 | P.ON_ITS ---
Date of procedure: 02/17/25 Pre-op diagnosis: Pain due to lumbar stenosis with neurogenic claudication Post-op diagnosis: same as pre-op Procedure: Procedure: Left L3-4, l4-5 transforaminal epidural steroid injection Medications: Bupivacaine 0.25% 2cc, lidocaine 2% 1cc, depomedrol 80mg The patient was seen and examined in the preoperative holding area.? Informed consent was obtained and placed on the chart.? Patient was brought to the medical procedure unit and placed in the prone position where a timeout was completed verifying the correct patient, procedure site, position, and planned special equipment using sterile aseptic technique.? Under direct fluoroscopic visualization a 25-gauge Quincke tipped spinal needle was advanced to the designated neural foramen where contrast dye was injected to show adequate spread.? The needle was inserted at level left L3-4. There was no evidence of vascular or adverse uptake.? Epidural spread was appreciated.? The above- mentioned injectate was then placed in a 1.5 mL aliquot preceded by negative aspiration.? The needle was removed. The needle was inserted and the procedure repeated at level left L4-5.? The surgery site was covered.? Patient was taken to the postprocedural recovery area and monitored for an appropriate length of time before found suitable for discharge in the accompaniment of a responsible adult. Anesthesia: Local Surgeon: Orville Shay Pathology: none sent Condition: stable Disposition: no change
== END 2025-02-17 12:39 | disposition home or self-care (01) ==
LOC: SURGOUT 11:29
PROVIDERS: PCP Internal Medicine; Visit Provider Anesthesiology
DX: M48.062 Spinal stenosis, lumbar region with neurogenic claudication (principal); M54.50 Low back pain, unspecified
CPT/HCPCS: 64483; 64484; J0665; J1100; Q9966

== ENCOUNTER 2025-02-24 12:53 | Outpatient (OUT) | payer MEDICARE, SELFPAY ==
--- NOTE | 2025-02-24 14:03 | PM.CN ---
Consult Note: HPI Data of Consult Patient: known to practice within the last 3 years Consult date: 02/24/25 Requesting Physician: Orville Shay MD Primary Care Provider: KYLE AMIN Consult Narrative Reason for consult: low back, leg pain Narrative: 84yof who presents for assessment. continues to have significant low back and leg pain. imaging reviewed, which is significant for multiple levels of stenosis and spondylosis. multiple areas of kyphoplasty noted. history of discectomy. has continued in a series of provider directed home exercises >6 weeks, without lasting benefit. is not interested in surgery due to comorbidities. uses robaxin as needed. denies adverse med side effects. cc:: CC: Orville Shay MD Review of Systems ROS Status of ROS 10 or more systems reviewed and unremarkable except as noted in history and below [facility] Medical History Low back pain ?M54.50 - Low back pain, unspecified (ICD-10) Cataract, left ?H26.9 - Unspecified cataract (ICD-10) Cataract, right ?H26.9 - Unspecified cataract (ICD-10) Hammertoes of both feet ?M20.41 - Other hammer toe(s) (acquired), right foot (ICD-10) ?M20.42 - Other hammer toe(s) (acquired), left foot (ICD-10) History of hypothyroidism ?Z86.39 - Personal history of other endocrine, nutritional and metabolic disease (ICD-10) History of heart attack ?I25.2 - Old myocardial infarction (ICD-10) Surgical History History of kyphoplasty ?Z98.890 - Other specified postprocedural states (ICD-10) History of lumbar discectomy ?Z98.890 - Other specified postprocedural states (ICD-10) History of revision of total replacement of right hip joint ?Z96.641 - Presence of right artificial hip joint (ICD-10) History of total right hip arthroplasty ?Z96.641 - Presence of right artificial hip joint (ICD-10) History of hysterectomy ?Z90.710 - Acquired absence of both cervix and uterus (ICD-10) H/O heart artery stent ?Z95.5 - Presence of coronary angioplasty implant and graft (ICD-10) Meds Home Medications and Allergies Home Medications ?Medication ?Instructions ?Recorded ?Confirmed ?Type biotin 2,500 mcg capsule 2,500 mcg PO DAILY 10/15/24 02/17/25 History ezetimibe 10 mg tablet 10 mg PO DAILY 10/15/24 02/17/25 History furosemide 40 mg tablet 40 mg PO BID 10/15/24 02/17/25 History isosorbide dinitrate 30 mg tablet 30 mg PO DAILY 10/15/24 02/17/25 History losartan 25 mg tablet 25 mg PO DAILY 10/15/24 02/17/25 History methocarbamol 750 mg tablet 750 mg PO Q6H 10/15/24 02/17/25 History metoprolol tartrate 50 mg tablet 50 mg PO DAILY 10/15/24 12/31/24 History pramipexole 0.5 mg tablet 0.25 mg PO BID 10/15/24 02/17/25 History ranolazine 1,000 mg 1,000 mg PO BID 10/15/24 02/17/25 History tablet,extended release,12 hr levothyroxine 50 mcg tablet mcg 11/05/24 History diazepam 10 mg tablet (Valium) 10 mg PO ONCE 02/17/25 02/17/25 History Allergies Allergy/AdvReac Type Severity Reaction Status Date / Time Sulfa (Sulfonamide Allergy Unknown Unknown Verified 02/17/25 11:43 Antibiotics) Byvevls-LDL-ToR Reductase Allergy Joint Pain Verified 02/17/25 11:43 Inhibitor Exam Narrative Exam Narrative: Psych-alert and oriented x 3. Attentive and appropriate, constitutionally normal, displays normal mood and affect per situation. There are no obvious deficits in memory, reasoning, or intellect.? Skin-no obvious rashes, bruising, erythema noted to the patient's area of pain.? Extremities- extremities are warm with minimal edema and palpable pulses. Lumbar-tenderness to palpation noted in the lumbar spine and paraspinal musculature. Pain is not elicited with flexion, extension, and lateral rotation of the lumbar spine. Range of motion is not diminished with these motions. Facet loading maneuvers are negative.? Strength-noted to be unremarkable Sensory-no notable sensory deficits in the bilateral lower extremities to touch or pinprick in all dermatomal distributions with the exception to decreased sensation to the bilateral L4, 5 dermatomal distribution Coordination remains intact.? Gait remains non-antalgic. 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 failed conservative measures, as noted. imaging reviewed, as noted. given failure to respond to various modalities, including medications and interventional modalities, and given surgical history, she may benefit from scs trial. i will order psych eval with anticipation of this. she is in agreement. meds reviewed, no changes. follow up after procedure.
== END 2025-02-24 12:54 | disposition home or self-care (01) ==
PROVIDERS: PCP Internal Medicine; Visit Provider Anesthesiology
DX: M48.062 Spinal stenosis, lumbar region with neurogenic claudication (principal); M51.362 Other intervertebral disc degeneration, lumbar region with discogenic back pain and lower extremity pain; M96.1 Postlaminectomy syndrome, not elsewhere classified
CPT/HCPCS: G0463